=== PATIENT | male | born 1965 | race Caucasian/White ===

== ENCOUNTER 2016-10-22 15:25 | Inpatient (IN) | payer OTHER ==
[2016-10-22 19:59] LABS: BASOPHIL 2.2 % (0-2.0); EOSINOPHIL 2.4 % (0-4.5); MEAN PLT VOLUME 6.4 fl (7.5-11.1); NEUTROPHILS 74.1 % (42.8-82.8); PLATELET COUNT 770 K/MM3 (134-434); RDW 15.3 % (11.9-15.9); WHITE BLOOD COUNT 13.5 K/mm3 (4.0-10.0)
[2016-10-22 20:07] LABS: MCH 18.9 pg (25.7-33.7)
[2016-10-22 20:34] LABS: INR 1.16 (0.82-1.09); PROTHROMBIN TIME (PATIENT) 12.8 SEC (9.98-11.88)
[2016-10-22] MEDS ORDERED: SODIUM CHLORIDE 1,000 ML IV STA (20:39)
--- NOTE | 2016-10-22 20:39 | PDOC ---
History of Present Illness - General History Source: Patient Exam Limitations: No Limitations - History of Present Illness Initial Comments: 10/22/16 21:06 The patient is a 50 year old male with significant past medical history of newly diagnosed mediastinum chest mass who presents to the ED with 3 days of generalized malaise and fatigue. Patient also has complaints of headache and occasional productive cough. He denies chest pain and SOB. He also denies lightheadedness and dizziness. Patient states he is starting chemotherapy on October 28, but decided to come into the ER since he is feeling ill with generalized malaise. Patient denies history of hypertension and diabetes. The patient denies fever, chills, and palpitations. The patient denies abdominal pain, nausea, vomiting, and diarrhea. Allergies: NKDA Social History: Current smoker Past Surgical History: None reported PCP: Dr. Jp Rolon Oncologist: Dr. Estrada Lord <Bailey De La Cruz - Last Filed: 10/23/16 01:58> - General History Source: Patient <Kyle Bowser - Last Filed: 10/23/16 04:20> - General Chief Complaint: Chest Pain Stated Complaint: CHEST PAIN, THROAT PAIN, DIZZINESS Time Seen by Provider: 10/22/16 20:36 Past History <Bailey De La Cruz - Last Filed: 10/23/16 01:58> - Past Medical History Cancer: Yes (Starts Chemo ) Thyroid Disease: Yes - Psycho/Social/Smoking Cessation Hx Suicidal Ideation: No Smoking Status: Yes Smoking History: Current every day smoker Number of Cigarettes Smoked Daily: 12 Information on smoking cessation initiated: Yes 'Breaking Loose' booklet given: 10/22/16 Hx Alcohol Use: Yes (daily) Drug/Substance Use Hx: No Substance Use Type: None <Kyle Bowser - Last Filed: 10/23/16 04:20> - Past Medical History Allergies/Adverse Reactions: Allergies Allergy/AdvReac Type Severity Reaction Status Date / Time No Known Allergies Allergy Verified 10/22/16 15:32 Home Medications: Ambulatory Orders Levothyroxine [Synthroid] 25 mcg PO DAILY 11/29/12 Acetaminophen [Tylenol] 325 mg PO QID PRN 10/22/16 Guaifenesin [Mucinex -] 600 mg PO BID 10/22/16 Review of Systems - Review of Systems Able to Perform ROS?: Yes Comments:: 10/22/16 21:06 CONSTITUTIONAL: +generalized malaise, fatigue Absent: fever, chills, diaphoresis, loss of appetite HEENT: Absent: rhinorrhea, nasal congestion, throat pain, throat swelling, difficulty swallowing, mouth swelling, ear pain, eye pain, visual Changes CARDIOVASCULAR: Absent: chest pain, syncope, palpitations, irregular heart rate, lightheadedness , peripheral edema RESPIRATORY: +occasional productive cough Absent: shortness of breath, dyspnea with exertion , orthopnea, wheezing, stridor, hemoptysis GASTROINTESTINAL: Absent: abdominal pain, abdominal distension, nausea, vomiting, diarrhea, constipation, melena, hematochezia GENITOURINARY: Absent: dysuria, frequency, urgency, hesitancy, hematuria, flank pain, genital pain MUSCULOSKELETAL: Absent: myalgia, arthralgia, joint swelling SKIN: Absent: rash, itching, pallor NEUROLOGIC: +headache Absent: focal weakness or paresthesias, dizziness, unsteady gait, seizure, mental status changes, bladder or bowel incontinence PSYCHIATRIC: Absent: anxiety, depression, suicidal or homicidal ideation, hallucinations. <Bailey De La Cruz - Last Filed: 10/23/16 01:58> *Physical Exam - Vital Signs Last Vital Signs Temp Pulse Resp BP Pulse Ox 97.8 F 89 18 111/75 93 L 10/22/16 15:29 10/22/16 15:29 10/22/16 15:29 10/22/16 15:29 10/22/16 15:29 - Physical Exam Comments: 10/22/16 21:06 GENERAL: Well developed, well nourished. Awake and alert. No acute distress. HEENT: Normocephalic, atraumatic. PERRLA, EOMI. No conjunctival pallor. Sclera are non- icteric. Moist mucous membranes. Oropharynx is clear. NECK: Supple. Full ROM. No JVD. Carotid pulses 2+ and symmetric, without bruits. No thyromegaly. No lymphadenopathy. CARDIOVASCULAR: Regular rate and rhythm. No murmurs, rubs, or gallops. Distal pulses are 2+ and symmetric. PULMONARY: No evidence of respiratory distress. Scattered wheezing. ABDOMINAL: Soft. Non-tender. Non-distended. No rebound or guarding. No organomegaly. Normoactive bowel sounds. MUSCULOSKELETAL Normal range of motion at all joints. No bony deformities or tenderness. No CVA tenderness. EXTREMITIES: No cyanosis. No clubbing. No edema. No calf tenderness. SKIN: Warm and dry. Normal capillary refill. No rashes. No jaundice. NEUROLOGICAL: Alert, awake, appropriate. Cranial nerves 2-12 intact. No deficits to light touch and temperature in face, upper extremities and lower extremities. No motor deficits in the in face, upper extremities and lower extremities. Normoreflexic in the upper and lower extremities. Normal speech. PSYCHIATRIC: Cooperative. Good eye contact. Appropriate mood and affect. <Bailey De La Cruz - Last Filed: 10/23/16 01:58> - Vital Signs Last Vital Signs Temp Pulse Resp BP Pulse Ox 97.8 F 89 18 111/75 93 L 10/22/16 15:29 10/22/16 15:29 10/22/16 15:29 10/22/16 15:29 10/22/16 15:29 <Kyle Bowser - Last Filed: 10/23/16 04:20> Heart Score/ECG Review - ECG Impressions Comment:: 10/23/16 01:58 NSR @77bpm Possible left atrial enlargement Borderline ECG <Bailey De La Cruz - Last Filed: 10/23/16 01:58> ED Treatment Course - LABORATORY CBC & Chemistry Diagram: 10/22/16 19:44 10/22/16 19:44 - ADDITIONAL ORDERS Additional order review: Laboratory Results 10/22/16 19:44 Sodium 131 L Potassium 4.3 Chloride 94 L Carbon Dioxide 31 Anion Gap 6 L BUN 9 D Creatinine 0.9 Creat Clearance w eGFR > 60 Random Glucose 111 H D Calcium 8.8 Total Bilirubin 0.5 AST 21 ALT 11 L Alkaline Phosphatase 116 Total Protein 6.9 Albumin 2.8 L 10/22/16 19:44 RBC 6.29 H MCV 61.0 L MCHC 31.0 L RDW 15.3 MPV 6.4 L Neutrophils % 74.1 Lymphocytes % 13.1 Monocytes % 8.2 Eosinophils % 2.4 Basophils % 2.2 H <Bailey De La Cruz - Last Filed: 10/23/16 01:58> - LABORATORY CBC & Chemistry Diagram: 10/22/16 19:44 10/22/16 19:44 - ADDITIONAL ORDERS Additional order review: 10/22/16 19:44 RBC 6.29 H MCV 61.0 L MCHC 31.0 L RDW 15.3 MPV 6.4 L Neutrophils % 74.1 Lymphocytes % 13.1 Monocytes % 8.2 Eosinophils % 2.4 Basophils % 2.2 H <Kyle Bowser - Last Filed: 10/23/16 04:20> Medical Decision Making - Medical Decision Making 10/23/16 04:19 Dr. Bowser: The scribe's documentation has been prepared under my direction and personally reviewed by me in its entirery. I confirm that the note above accurately reflects all work, treatment, procedures, and medical decision making performed by me. Patient found right upper lobe infiltrate, around the same vicinity as his known lung mass. Patient's white count is approximately 13. Patient will be admitted for IV antibiotics <Kyle Bowser - Last Filed: 10/23/16 04:20> *DC/Admit/Observation/Transfer - Attestations Scribe Attestion: 10/22/16 21:06 Documentation prepared by Bailey De La Cruz, acting as medical radiation dosimetrist for Kyle Bowser MD <Bailey De La Cruz - Last Filed: 10/23/16 01:58> - Discharge Dispostion Admit: Yes <Kyle Bowser - Last Filed: 10/23/16 04:20> Diagnosis at time of Disposition: Lung mass Pneumonia Qualifiers: Pneumonia type: due to unspecified organism Laterality: right Lung location: upper lobe of lung Qualified Code(s): J18.9 - Pneumonia, unspecified organism - Referrals
[2016-10-22 20:42] LABS: ALBUMIN 2.8 g/dl (3.4-5.0); ALK PHOS 116 U/L (45-117); ANION GAP 6 (8-16); BILIRUBIN,TOTAL 0.5 mg/dL (0.2-1.0); CALCIUM 8.8 mg/dL (8.5-10.1); CO2 31 mmol/L (21-32); CREATININE 0.9 mg/dL (0.7-1.3); GLUCOSE,RANDOM 111 mg/dL (74-106); SGOT/AST 21 U/L (15-37); SGPT/ALT 11 U/L (12-78); TOT PROT 6.9 g/dl (6.4-8.2)
[2016-10-22 21:42] LABS: HYPOCHROMIA 3+; MICROCYTOSIS 2+; TARGET CELLS 2+
[2016-10-22] MEDS ORDERED: AZITHROMYCIN IVPB 500 MG in DEXTROSE 5%-WATER - 250 ML IVPB ONE (22:51)
[2016-10-23] MEDS ORDERED: CEFTRIAXONE 100 ML IVPB ONE (01:21)
[2016-10-23] MEDS ORDERED: AZITHROMYCIN IVPB 250 ML IVPB ONE (01:21)
[2016-10-23 03:10] VITALS: BMI 19.9
--- NOTE | 2016-10-23 10:02 | EKG ---
Test Reason : Blood Pressure : / mmHG Vent. Rate : 077 BPM Atrial Rate : 077 BPM P-R Int : 142 ms QRS Dur : 088 ms QT Int : 384 ms P-R-T Axes : 065 061 049 degrees QTc Int : 434 ms NORMAL SINUS RHYTHM POSSIBLE LEFT ATRIAL ENLARGEMENT BORDERLINE ECG NO PREVIOUS ECGS AVAILABLE Confirmed by MD BRENDAN, CALLIE ([id number]) on 10/23/2016 10:02:23 AM Referred By: Overread By: CALLIE CARDONA MD
[2016-10-23] MEDS ORDERED: ACETAMINOPHEN 325 MG TABLET (FP) PO ONE (11:00)
[2016-10-23] MEDS: LEVOTHYROXINE NA 25 MCG TABLET (FP) PO SCH (14:10)
[2016-10-23] MEDS: ENOXAPARIN NA (PORCINE) 40 MG/0.4 ML DISP.SYRIN SQ SCH (14:11)
--- NOTE | 2016-10-23 15:16 | CONSULT ---
Consult Consult Specialty:: PULMONARY Referred by:: VANESSA Reason for Consultation:: LUNG CANCER - History of Present Illness Chief Complaint: COUGH/CHEST PRESSURE/WEAKNESS History of Present Illness: COMPLETE WORKUP FOR RIGHT UPPER LOBE LARGE MASS ALREADY COMPLETED INCLUDING BX. PATIENT HAS LUNG CANCER (HE COULDN'T TELL ME THE TYPE) AND A PORT PLACED IN ANTICIPATION OF CHEMOTX. ONCOLOGY HAS ALL INFO, CONSULT IS PENDING. ADMITTED NOW WITH PRESUMED PNEUMONIA RUL IN AREA OF MASS. STILL ACTIVELY SMOKING. 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 No: O2 Dependent Gastrointestinal: No: Ascites Hepatobiliary: No: Cirrhosis Renal/: No: Hemodialysis Heme/Onc: Yes: Anemia Infectious Disease: No: AIDS Musculoskeletal: No: Bursitis Rheumatology: No: Fibromyalgia Endocrine: Yes: Hypothyroidism. No: Diabetes Mellitus - Alcohol/Substance Use Hx Alcohol Use: Yes (daily) - Smoking History Smoking history: Current every day smoker Have you smoked in the past 12 months: Yes Aproximately how many cigarettes per day: 12 - Social History Place of : [facility] History of Recent Travel: No Home Medications - Allergies Allergies/Adverse Reactions: Allergies Allergy/AdvReac Type Severity Reaction Status Date / Time No Known Allergies Allergy Verified 10/22/16 15:32 - Home Medications Home Medications: Ambulatory Orders Levothyroxine [Synthroid] 25 mcg PO DAILY 11/29/12 Acetaminophen [Tylenol] 325 mg PO QID PRN 10/22/16 Guaifenesin [Mucinex -] 600 mg PO BID 10/22/16 Family Disease History - Family Disease History Family History: Unremarkable Review of Systems - Review of Systems Constitutional: reports: Fever, Lethargy, Unintentional Wgt. Loss Eyes: denies: Blind Spots HENT: denies: Difficult Swallowing Neck: denies: Decreased ROM Cardiovascular: reports: Chest Pain Respiratory: reports: Cough, SOB on Exertion. denies: Hemoptysis, Wheezing Gastrointestinal: denies: Abdominal Pain Genitourinary: reports: No Symptoms Physical Exam Vital Sings: Vital Signs Temperature 98.4 F 10/23/16 13:39 Pulse Rate 100 H 10/23/16 13:39 Respiratory Rate 18 10/23/16 13:39 Blood Pressure 136/79 10/23/16 13:39 O2 Sat by Pulse Oximetry (%) 90 L 10/23/16 09:00 Constitutional: Yes: Calm Eyes: Yes: EOM Intact HENT: Yes: Normocephalic Neck: Yes: Trachea Midline Cardiovascular: Yes: Regular Rate and Rhythm Respiratory: Yes: Diminished Gastrointestinal: Yes: Normal Bowel Sounds Edema: No Neurological: Yes: Alert Labs: ALL LABS REVIEWED Imaging - Results Chest X-ray: Image Reviewed EKG: Report Reviewed Problem List - Problems (1) Lung mass Code(s): R91.8 - OTHER NONSPECIFIC ABNORMAL FINDING OF LUNG FIELD (2) Pneumonia Code(s): J18.9 - PNEUMONIA, UNSPECIFIED ORGANISM Qualifiers: Pneumonia type: due to unspecified organism Laterality: right Lung location: upper lobe of lung Qualified Code(s): J18.9 - Pneumonia, unspecified organism (3) Epistaxis, recurrent Code(s): R04.0 - EPISTAXIS (4) Lung cancer Code(s): C34.90 - MALIGNANT NEOPLASM OF UNSP PART OF UNSP BRONCHUS OR LUNG Assessment/Plan NO NEED TO REPEAT EXTENSIVE PREVIOUS WORKUP WOULD TREAT FOR COMMUNITY ACQUIRED PNEUMONIA O2 SUPPLEMENTATION/BRONCHODILATORS/NICOTINE PATCH AWAIT ALL INFO FROM ONCOLOGY(DR. TAVARES) WILL FOLLOW Shawn CORTÉS MD
[2016-10-23] MEDS: DEXTROSE 5%-0.45% SALINE 1,000 ML IV SCH (17:25)
[2016-10-23] MEDS: NICOTINE 14 MG/24 HOURS TOPICAL PATCH TD SCH (17:25)
--- NOTE | 2016-10-23 18:37 | HP ---
Admitting History and Physical - Admission History of Present Illness: Pt is a 50 y/o smoker who has been recently dx'ed w/ lung cancer and is supposed to begin chemotx w/ Dr. Lord next week. However he now presented to the er bc he has been feeling fatigued w/ increased SOB. He also states that his cough has become more productive and the sputum seems darker. In the er pt had cxr wc showed RUL opacification and he was found to have a WBC of 13,000. Pt deneis any fever/chills. 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 No: O2 Dependent Gastrointestinal: No: Ascites Hepatobiliary: No: Cirrhosis Renal/: No: Hemodialysis Heme/Onc: Yes: Anemia, Other (Lung cancer) Infectious Disease: No: AIDS Musculoskeletal: No: Bursitis Rheumatology: No: Fibromyalgia Endocrine: Yes: Hypothyroidism. No: Diabetes Mellitus - Past Surgical History Additional Past Surgical History: Jackie cath placement - Smoking History Smoking history: Current every day smoker Have you smoked in the past 12 months: Yes Aproximately how many cigarettes per day: 12 - Alcohol/Substance Use Hx Alcohol Use: Yes (daily) - Social History History of Recent Travel: No Home Medications - Allergies Allergies/Adverse Reactions: Allergies Allergy/AdvReac Type Severity Reaction Status Date / Time No Known Allergies Allergy Verified 10/22/16 15:32 - Home Medications Home Medications: Ambulatory Orders Levothyroxine [Synthroid] 25 mcg PO DAILY 11/29/12 Acetaminophen [Tylenol] 325 mg PO QID PRN 10/22/16 Guaifenesin [Mucinex -] 600 mg PO BID 10/22/16 Family Disease History - Family Disease History Family History: Unremarkable Review of Systems - Review of Systems Constitutional: reports: Loss of Appetite, Malaise, Unintentional Wgt. Loss, Weakness HENT: reports: No Symptoms Neck: reports: No Symptoms Cardiovascular: reports: Shortness of Breath Respiratory: reports: Cough, Exercise Intolerance, SOB, SOB on Exertion Gastrointestinal: reports: No Symptoms Physical Examination Vital Signs: Vital Signs Temperature 97.7 F 10/23/16 16:20 Pulse Rate 60 10/23/16 16:20 Respiratory Rate 20 10/23/16 16:20 Blood Pressure 110/66 12/30/16 16:20 O2 Sat by Pulse Oximetry (%) 90 L 10/23/16 09:00 HENT: Yes: WNL Neck: Yes: Supple Cardiovascular: Yes: WNL, Regular Rate and Rhythm Respiratory: Yes: Rhonchi Gastrointestinal: Yes: WNL, Normal Bowel Sounds, Soft Musculoskeletal: Yes: WNL Extremities: Yes: WNL Edema: No Neurological: Yes: WNL, Alert, Oriented Problem List - Problems (1) Pneumonia Assessment/Plan: Cont IV ceftriaxone/zithro for CAP Cont nebulizer Code(s): J18.9 - PNEUMONIA, UNSPECIFIED ORGANISM Qualifiers: Pneumonia type: due to unspecified organism Laterality: right Lung location: upper lobe of lung Qualified Code(s): J18.9 - Pneumonia, unspecified organism (2) Lung cancer Assessment/Plan: Onco consult requested No further imaging until onco consult to determine if there is a need Code(s): C34.90 - MALIGNANT NEOPLASM OF UNSP PART OF UNSP BRONCHUS OR LUNG (3) COPD (chronic obstructive pulmonary disease) Assessment/Plan: Cont duoneb Long d/w pt about need for smoking cessation Nicotine patch Code(s): J44.9 - CHRONIC OBSTRUCTIVE PULMONARY DISEASE, UNSPECIFIED (4) Anemia Assessment/Plan: Due to malignancy Monitor H/H Code(s): D64.9 - ANEMIA, UNSPECIFIED (5) Hypothyroidism Assessment/Plan: Cont synthroid Code(s): E03.9 - HYPOTHYROIDISM, UNSPECIFIED
[2016-10-23] MEDS: CEFTRIAXONE 50 ML IVPB SCH (21:37)
--- NOTE | 2016-10-23 22:50 | CONSULT ---
Consult - text type - Consultation Consultation Note: Pt is a 50 y/o smoker who has been recently dx'ed w/ lung cancer and is supposed to begin chemotx w/ Dr. Lord next week. However he now presented to the er as he has been feeling fatigued w/ increased cough, chest heaviness. He also reports blood tinged sputum. No reji hemoptyisis. Blood tinged sputum has not changed in amount over last 2 months. In the er pt had cxr wc showed RUL opacification and he was found to have a WBC of 13,000. Pt deneis any fever/ chills. 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 No: O2 Dependent Heme/Onc: Yes: Anemia, Other (Lung cancer) Endocrine: Yes: Hypothyroidism. No: Diabetes Mellitus - Past Surgical History Additional Past Surgical History: Jackie cath placement - Smoking History Smoking history: Current every day smoker - Alcohol/Substance Use Hx Alcohol Use: Yes (daily) Home Medications - Allergies Allergies/Adverse Reactions: Allergies Allergy/AdvReac Type Severity Reaction Status Date / Time No Known Allergies Allergy Verified 10/22/16 15:32 - Home Medications Home Medications: Ambulatory Orders Levothyroxine [Synthroid] 25 mcg PO DAILY 11/29/12 Acetaminophen [Tylenol] 325 mg PO QID PRN 10/22/16 Guaifenesin [Mucinex -] 600 mg PO BID 10/22/16 Current Medications Acetaminophen (Tylenol -) 1,000 mg PO Q6H PRN PRN Reason: FEVER OR PAIN Albuterol/Ipratropium (Duoneb -) 1 amp NEB Q6H PRN PRN Reason: SHORTNESS OF BREATH Enoxaparin Sodium (Lovenox -) 40 mg SQ DAILY [facility] Last Admin: 10/23/16 14:11 Dose: 40 mg Azithromycin 250 mg/ Dextrose 250 mls @ 250 mls/hr IVPB DAILY [facility] Ceftriaxone Sodium (Rocephin 1gm Ivpb (Pre-Docked)) 50 mls @ 100 mls/hr IVPB HS [facility] Last Admin: 10/23/16 21:37 Dose: 100 mls/hr Dextrose/Sodium Chloride (D5-1/2ns -) 1,000 mls @ 75 mls/hr IV ASDIR [facility] Last Admin: 12/30/16 17:25 Dose: 75 mls/hr Levothyroxine Sodium (Synthroid -) 25 mcg PO DAILY [facility] Last Admin: 10/23/16 14:10 Dose: 25 mcg Nicotine (Nicoderm Patch -) 14 mg TD DAILY [facility] Last Admin: 10/23/16 17:25 Dose: Not Given Family Disease History - Family Disease History Family History: Unremarkable Physical Examination Vital Signs: Vital Signs Temperature 97.7 F 10/23/16 16:20 Pulse Rate 60 10/23/16 16:20 Respiratory Rate 20 10/23/16 16:20 Blood Pressure 110/66 10/23/16 16:20 O2 Sat by Pulse Oximetry (%) 90 L 10/23/16 09:00 HENT: Yes: WNL Neck: Yes: Supple Cardiovascular: Yes: WNL, Regular Rate and Rhythm Respiratory: markedly diminished breath sounds rt. lung. Lt. lung --good breath sounds Gastrointestinal: Yes: WNL, Normal Bowel Sounds, Soft Musculoskeletal: Yes: WNL Extremities: Yes: WNL Neurological: Yes: WNL, Alert, Oriented Problem List 50 y/o patient with recently diagnosed lung cancer, completed staging w/u as outpatient anticipated to start chemo 10/28 comes in with chest pressure, orthopnea. Has baseline cough and mild hemopthysis feels better since he started antibiotics Will start folic acid and B12 in anticipation of chemotherapy with carbo/alimta ? will review office records will check echo to r/o pericardial effusion given orthopnea
[2016-10-24] MEDS: FOLIC ACID 1 MG TABLET (FP) PO SCH ×2 (00:02→10:08)
[2016-10-24 08:37] LABS: ALBUMIN 2.5 g/dl (3.4-5.0); ANION GAP 11 (8-16); CALCIUM 8.8 mg/dL (8.5-10.1); CO2 30 mmol/L (21-32); GLUCOSE,RANDOM 77 mg/dL (74-106)
[2016-10-24 08:42] LABS: ALK PHOS 105 U/L (45-117); BILIRUBIN,TOTAL 0.3 mg/dL (0.2-1.0); CREATININE 0.8 mg/dL (0.7-1.3); SGOT/AST 19 U/L (15-37); SGPT/ALT 11 U/L (12-78); TOT PROT 6.6 g/dl (6.4-8.2)
[2016-10-24 09:09] LABS: BASOPHIL 1.9 % (0-2.0); EOSINOPHIL 3.6 % (0-4.5); MCHC 31.5 g/dl (32.0-35.9); MEAN CELL VOLUME 61.7 fl (80-96); MEAN PLT VOLUME 6.7 fl (7.5-11.1); NEUTROPHILS 71.7 % (42.8-82.8); PLATELET COUNT 741 K/MM3 (134-434); RDW 15.7 % (11.9-15.9); WHITE BLOOD COUNT 13.5 K/mm3 (4.0-10.0)
[2016-10-24 09:11] LABS: MCH 19.4 pg (25.7-33.7)
--- NOTE | 2016-10-24 10:03 | PN ---
Progress Note (short form) - Note Progress Note: PULMONARY AWAKE/ALERT YELLOW SPUTA MIXED WITH BLOOD ANICTERIC DIMINISHED BREATH SOUNDS RIGHT POSTERIOR UPPER LUNG ZONE S1S2 BS+ NO EDEMA LABS/MEDS/NOTES/IMAGING REVIEWED STILL AWAITING DETAILS SURROUNDING PREVIOUS RECENT LUNG CA WORK UP CONTINUE TO TREAT FOR LIKELY POST-OBSTRUCTIVE PROCESS WITH IV ANTIBIOTICS BRONCHODILATORS/O2 SUPPLEMENTATION PATIENT STATES MRI BRAIN WAS NEGATIVE(COMPLAINING OF HEADACHES) WILL FOLLOW Shawn CORTÉS MD Problem List - Problems (1) Lung mass Code(s): R91.8 - OTHER NONSPECIFIC ABNORMAL FINDING OF LUNG FIELD (2) Pneumonia Code(s): J18.9 - PNEUMONIA, UNSPECIFIED ORGANISM Qualifiers: Pneumonia type: due to unspecified organism Laterality: right Lung location: upper lobe of lung Qualified Code(s): J18.9 - Pneumonia, unspecified organism (3) Epistaxis, recurrent Code(s): R04.0 - EPISTAXIS (4) Lung cancer Code(s): C34.90 - MALIGNANT NEOPLASM OF UNSP PART OF UNSP BRONCHUS OR LUNG
[2016-10-24] MEDS ORDERED: PT OWN MED DRAWER 7, Y5N ONE (10:04)
[2016-10-24] MEDS: ENOXAPARIN NA (PORCINE) 40 MG/0.4 ML DISP.SYRIN SQ SCH (10:09)
[2016-10-24] MEDS: NICOTINE 14 MG/24 HOURS TOPICAL PATCH TD SCH (10:09)
[2016-10-24] MEDS: ACETAMINOPHEN 500 MG TABLET (FP) PO PRN ×2 (10:10→22:28)
[2016-10-24] MEDS: LEVOTHYROXINE NA 25 MCG TABLET (FP) PO SCH (10:13)
[2016-10-24] MEDS: ALBUTEROL SO4 2.5/IPRATROPIUM 0.5 INH SOL 3 ML VIAL.NEB. NEB PRN ×2 (10:30→21:55)
[2016-10-24] MEDS: AZITHROMYCIN IVPB 250 MG in DEXTROSE 5%-WATER - 250 ML IVPB SCH (12:19)
[2016-10-24] MEDS: DEXTROSE 5%-0.45% SALINE 1,000 ML IV SCH (15:29)
[2016-10-24] MEDS ORDERED: CYANOCOBALAMIN (VITAMIN B-12) 1000 MCG/1 ML VIAL IM ONE (15:50)
--- NOTE | 2016-10-24 17:38 | PN ---
Progress Note (short form) - Note Progress Note: Patient seen and examined Fels much better Last Vital Signs Temp Pulse Resp BP Pulse Ox 97.4 F L 83 18 136/64 96 10/24/16 14:24 10/24/16 14:24 10/24/16 14:24 10/24/16 14:24 10/24/16 09:00 Cor: RSR, No murmurs, No gallops Lungs: decreased rt. lung sounds Abd: Soft, Normal bowel sounds, No organomegaly Ext:No significant edema Skin: No rashes, Integument intact Abnormal Lab Results 10/24/16 10/24/16 06:30 06:30 WBC 13.5 H RBC 6.07 H MCV 61.7 L MCHC 31.5 L Plt Count 741 H MPV 6.7 L Chloride 96 L ALT 11 L Albumin 2.5 L Current Medications Acetaminophen (Tylenol -) 1,000 mg PO Q6H PRN PRN Reason: FEVER OR PAIN Last Admin: 10/24/16 10:10 Dose: 1,000 mg Albuterol/Ipratropium (Duoneb -) 1 amp NEB Q6H PRN PRN Reason: SHORTNESS OF BREATH Last Admin: 10/24/16 10:30 Dose: 1 amp Enoxaparin Sodium (Lovenox -) 40 mg SQ DAILY [facility] Last Admin: 10/24/16 10:09 Dose: 40 mg Folic Acid (Folic Acid -) 1 mg PO DAILY [facility] Last Admin: 10/24/16 10:08 Dose: 1 mg Azithromycin 250 mg/ Dextrose 250 mls @ 250 mls/hr IVPB DAILY [facility] Last Admin: 10/24/16 12:19 Dose: 250 mls/hr Ceftriaxone Sodium (Rocephin 1gm Ivpb (Pre-Docked)) 50 mls @ 100 mls/hr IVPB HS [facility] Last Admin: 10/23/16 21:37 Dose: 100 mls/hr Dextrose/Sodium Chloride (D5-1/2ns -) 1,000 mls @ 75 mls/hr IV ASDIR [facility] Last Admin: 10/24/16 15:29 Dose: Not Given Levothyroxine Sodium (Synthroid -) 25 mcg PO DAILY [facility] Last Admin: 10/24/16 10:13 Dose: 25 mcg Nicotine (Nicoderm Patch -) 14 mg TD DAILY [facility] Last Admin: 10/24/16 10:09 Dose: 14 mg A/P 50 y/o patient with stage IIIB nonsmall cell, poorly diff. adeno ca with 9cm RUL mass, N3 nodes on PET-scan MRI brain neg. Patient coming in with chest pressure/headaches/orthopnea/mild hemoptysis Symptoms much impreoved on antibiotics If symptoms recur or persist will repeat imagin CT chest with contrast --? SVC syndrome On B12/folate Will transfer to for chemotherapy---carboplatin/alimta. Hold avastin given hemoptysis
--- NOTE | 2016-10-24 19:35 | PN ---
Progress Note, Physician History of Present Illness: No new complaints - Current Medication List Current Medications: Active Medications Acetaminophen (Tylenol -) 1,000 mg PO Q6H PRN PRN Reason: FEVER OR PAIN Last Admin: 10/24/16 10:10 Dose: 1,000 mg Albuterol/Ipratropium (Duoneb -) 1 amp NEB Q6H PRN PRN Reason: SHORTNESS OF BREATH Last Admin: 10/24/16 10:30 Dose: 1 amp Enoxaparin Sodium (Lovenox -) 40 mg SQ DAILY [facility] Last Admin: 10/24/16 10:09 Dose: 40 mg Folic Acid (Folic Acid -) 1 mg PO DAILY [facility] Last Admin: 10/24/16 10:08 Dose: 1 mg Azithromycin 250 mg/ Dextrose 250 mls @ 250 mls/hr IVPB DAILY [facility] Last Admin: 10/24/16 12:19 Dose: 250 mls/hr Ceftriaxone Sodium (Rocephin 1gm Ivpb (Pre-Docked)) 50 mls @ 100 mls/hr IVPB HS [facility] Last Admin: 10/23/16 21:37 Dose: 100 mls/hr Levothyroxine Sodium (Synthroid -) 25 mcg PO DAILY [facility] Last Admin: 10/24/16 10:13 Dose: 25 mcg Nicotine (Nicoderm Patch -) 14 mg TD DAILY [facility] Last Admin: 10/24/16 10:09 Dose: 14 mg - Objective Vital Signs: Vital Signs Temperature 97.7 F 10/24/16 18:05 Pulse Rate 64 10/24/16 18:05 Respiratory Rate 18 10/24/16 18:05 Blood Pressure 128/89 10/24/16 18:05 O2 Sat by Pulse Oximetry (%) 96 10/24/16 09:00 Constitutional: Yes: No Distress Neck: Yes: Supple Cardiovascular: Yes: WNL, Regular Rate and Rhythm Respiratory: Yes: Other (Coarse bs b/l) Gastrointestinal: Yes: WNL, Normal Bowel Sounds, Soft, Abdomen, Obese Labs: CBC, BMP 10/24/16 06:30 10/24/16 06:30 INR, PTT INR 1.16 (0.82-1.09) H 10/22/16 19:44 Problem List - Problems (1) Pneumonia Assessment/Plan: Pt is now off antibxs Cont nebulizer CT scan chest showed RUL mass increased and ?adrenal mumtaz/pericardial effusion Code(s): J18.9 - PNEUMONIA, UNSPECIFIED ORGANISM Qualifiers: Pneumonia type: due to unspecified organism Laterality: right Lung location: lower lobe of lung Qualified Code(s): J18.9 - Pneumonia, unspecified organism (2) Lung cancer Assessment/Plan: Stage 3b nonsmall cell ca of lung(RUL mass) Pt to have chemotx(has port) and RT as outpt Further management as per onco Code(s): C34.90 - MALIGNANT NEOPLASM OF UNSP PART OF UNSP BRONCHUS OR LUNG Qualifiers: Laterality: right Lung location: upper lobe of lung Qualified Code(s): C34.11 - Malignant neoplasm of upper lobe, right bronchus or lung (3) COPD (chronic obstructive pulmonary disease) Assessment/Plan: Cont duoneb Nicotine patch Code(s): J44.9 - CHRONIC OBSTRUCTIVE PULMONARY DISEASE, UNSPECIFIED Qualifiers : COPD type: unspecified COPD Qualified Code(s): J44.9 - Chronic obstructive pulmonary disease, unspecified (4) Anemia Code(s): D64.9 - ANEMIA, UNSPECIFIED (5) Hypothyroidism Code(s): E03.9 - HYPOTHYROIDISM, UNSPECIFIED Qualifiers: Hypothyroidism type: unspecified Qualified Code(s): E03.9 - Hypothyroidism, unspecified
[2016-10-24] MEDS: CEFTRIAXONE 50 ML IVPB SCH (22:14)
[2016-10-25] MEDS: LEVOTHYROXINE NA 25 MCG TABLET (FP) PO SCH (06:34)
[2016-10-25] MEDS: ACETAMINOPHEN 500 MG TABLET (FP) PO PRN ×3 (06:37→21:51)
[2016-10-25] MEDS ORDERED: PT OWN MED DRAWER 7, Y5N ONE (10:15)
[2016-10-25] MEDS: ENOXAPARIN NA (PORCINE) 40 MG/0.4 ML DISP.SYRIN SQ SCH (10:17)
[2016-10-25] MEDS: NICOTINE 14 MG/24 HOURS TOPICAL PATCH TD SCH (10:17)
[2016-10-25] MEDS: FOLIC ACID 1 MG TABLET (FP) PO SCH (10:18)
--- NOTE | 2016-10-25 10:20 | PN ---
Progress Note (short form) - Note Progress Note: PULMONARY AWAKE/ALERT HAS LEFT SHOULDER PAIN WITH ANICTERIC DIMINISHED BREATH SOUNDS RIGHT POSTERIOR UPPER LUNG ZONE S1S2 BS+ NO EDEMA LABS/MEDS/NOTES/IMAGING REVIEWED POORLY DIFFERENTIATED ADENO STAGE 3B POST OBSTRUCTIVE PNEUMONITIS CONTINUE ANTIBIOTICS/O2/BRONCHODILATORS SCHEDULED FOR CHEMOTX WILL FOLLOW Shawn CORTÉS MD Problem List - Problems (1) Lung mass Code(s): R91.8 - OTHER NONSPECIFIC ABNORMAL FINDING OF LUNG FIELD (2) Pneumonia Code(s): J18.9 - PNEUMONIA, UNSPECIFIED ORGANISM Qualifiers: Pneumonia type: due to unspecified organism Laterality: right Lung location: upper lobe of lung Qualified Code(s): J18.9 - Pneumonia, unspecified organism (3) Epistaxis, recurrent Code(s): R04.0 - EPISTAXIS (4) Lung cancer Code(s): C34.90 - MALIGNANT NEOPLASM OF UNSP PART OF UNSP BRONCHUS OR LUNG
--- NOTE | 2016-10-25 11:26 | CONSULT ---
Consult - text type - Consultation Consultation Note: Patient seen and examined. Chart reviewed. Full Consult dictated # [id number]. 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 He is stable on antibiotics and bronchodilators. The plans for chemotherapy are noted. I would recommend concurrent radiation therapy. The patient would like to confirm this plan with Dr. Lord, and I would like to obtain the pathology and staging records as well before beginning. Will follow and discuss Wednesday. Thank you.
[2016-10-25] MEDS: AZITHROMYCIN IVPB 250 MG in DEXTROSE 5%-WATER - 250 ML IVPB SCH (12:04)
--- NOTE | 2016-10-25 12:46 | CONS ---
DATE OF CONSULTATION: 10/25/2016 CHIEF COMPLAINT: Lung cancer. HISTORY OF PRESENT ILLNESS: The patient is a 50-year-old gentleman who presented in December with idiopathic epistaxis that ultimately resolved by intervention at the [facility]. He reports a chest x-ray done in May after he had some increasing cough showed a right upper lobe mass. He had CT scan and evaluation at [facility]. There is where he had bronchoscopy and it sounds like mediastinoscopy though there is no mediastinoscopy scar. The biopsy showed adenocarcinoma of the lung. The patient saw Dr. Lord as an outpatient and was planned to begin carboplatin, Alimta and Avastin next week. He was admitted to [facility] 2 days ago with increasing cough, shortness of breath, and fever. He was diagnosed with a postobstructive pneumonia. He has seen Dr. Chantel You, who plans on beginning chemotherapy. We were asked to consider the possibility of concurrent radiation therapy. The patient does have hemoptysis, mainly blood-tinged, nothing excessive, according to him, there is no particular dyspnea or orthopnea. He does have some right upper chest discomfort. A MediPort was placed by Dr. Pete and a right supraclavicular lymph node was identified. Medications are azithromycin 250 mg IV daily, Rocephin 1 g IV daily, Lovenox 40 mg subcutaneous daily, NicoDerm patch 14 mg daily, albuterol ipratropium 1 nebulizer q.6 hours as needed, Synthroid 25 mcg daily, folic acid 1 mg daily, Tylenol 1000 mg every 6 hours daily. ALLERGIES: None. Past medical history is significant for hypothyroidism since she was a child, lung cancer. No other surgeries, medical illnesses, or hospitalizations. Family history is negative for cancer. Mother at the age of 83. Father is alive at age 81. He has a brother, 54, who is healthy. He has no children. SOCIAL HISTORY: He was born and raised in [place]. 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 He did smoke excessively for many years, currently smoking 12 cigarettes a day. No other alcohol or current drug use. REVIEW OF SYSTEMS: Positive for about 8-pound weight loss, negative for other neurologic, endocrine, cardiac, pulmonary, gastrointestinal, musculoskeletal, lymphatic, hematologic, or psychiatric complaints, except as noted above. He does have some anxiety. PHYSICAL EXAMINATION: Vital Signs: 97.6 degrees Fahrenheit, 61 beats per minute, 131/73 mmHg, respirations 16 per minute, 95% oxygen saturation on room air. The patient does have clubbing which is evident. No pallor or icterus. There is no thyromegaly or thyroid nodules. There is a 1.5-cm firm mobile right supraclavicular lymph node medially located. No other supraclavicular, cervical , axillary adenopathy bilaterally. Chest: Clear to percussion and auscultation bilaterally. Heart: Regular. Abdomen: Thin, benign, nontender, nondistended, without hepatosplenomegaly. Extremities: Normal strength, sensation, tone, and reflexes. Neurological: He is alert and oriented x3. PATHOLOGIC DATA: Pending receipt from [facility]. RADIOLOGIC DATA: Pending receipt. Chest x-ray here on October 22, 2016, shows increased opacification of the right upper lung worsened, with right hilar adenopathy as well. LABORATORY DATA: White count 13.5, hemoglobin 11.8, hematocrit 37.5, platelets 741,000. Albumin 2.5, calcium 8.8, sodium 137. Other chemistries are normal. IMPRESSION: The patient is a 50-year-old gentleman who appears to be a stage IIIB T2 N3 M0 adenocarcinoma of the right upper lobe. The plan is to start chemotherapy. With the postobstructive pneumonic process, I would favor concurrent radiation therapy with the chemotherapy. I shall speak with Dr. You and Dr. Lord about this next week. The possible 6 weeks of radiation therapy with the chemotherapy was discussed with the patient. I reviewed the possible side effects including but not limited to, fatigue, myelosuppression, skin erythema, desquamation, esophagitis, pneumonitis, and unlikely radiation effects on the heart. The patient understood, had a chance to ask questions, and wanted to speak to Dr. Lord before making a final decision about his treatment. PLAN: We shall speak with Dr. Lord. The patient appears stable at the moment. There is no need for emergent radiation therapy. TESSA URIBE M.D. LISSY/[id number] cc: Chantel You MD; Estrada Lord MD; Alden Dial MD; Miladys Reyes MD MTDD
--- NOTE | 2016-10-25 16:13 | PN ---
Progress Note, Physician History of Present Illness: Pt c/o neck pain wc he has had for many months - Current Medication List Current Medications: Active Medications Acetaminophen (Tylenol -) 1,000 mg PO Q6H PRN PRN Reason: FEVER OR PAIN Last Admin: 10/25/16 13:33 Dose: 1,000 mg Albuterol/Ipratropium (Duoneb -) 1 amp NEB Q6H PRN PRN Reason: SHORTNESS OF BREATH Last Admin: 10/24/16 21:55 Dose: 1 amp Enoxaparin Sodium (Lovenox -) 40 mg SQ DAILY [facility] Last Admin: 10/25/16 10:17 Dose: 40 mg Folic Acid (Folic Acid -) 1 mg PO DAILY [facility] Last Admin: 10/25/16 10:18 Dose: 1 mg Azithromycin 250 mg/ Dextrose 250 mls @ 250 mls/hr IVPB DAILY [facility] Last Admin: 10/25/16 12:04 Dose: 250 mls/hr Ceftriaxone Sodium (Rocephin 1gm Ivpb (Pre-Docked)) 50 mls @ 100 mls/hr IVPB HS [facility] Last Admin: 10/24/16 22:14 Dose: 100 mls/hr Levothyroxine Sodium (Synthroid -) 25 mcg PO ACBK [facility] Last Admin: 10/25/16 06:34 Dose: 25 mcg Nicotine (Nicoderm Patch -) 14 mg TD DAILY [facility] Last Admin: 10/25/16 10:17 Dose: 14 mg - Objective Vital Signs: Vital Signs Temperature 97.9 F 10/25/16 14:39 Pulse Rate 60 10/25/16 14:39 Respiratory Rate 16 10/25/16 14:39 Blood Pressure 128/78 10/25/16 14:39 O2 Sat by Pulse Oximetry (%) 95 10/25/16 09:00 Constitutional: Yes: No Distress Neck: Yes: Supple Cardiovascular: Yes: WNL, Regular Rate and Rhythm Respiratory: Yes: Rhonchi Gastrointestinal: Yes: WNL, Normal Bowel Sounds, Soft Extremities: Yes: WNL Edema: No Labs: CBC, BMP 10/24/16 06:30 10/24/16 06:30 INR, PTT INR 1.16 (0.82-1.09) H 10/22/16 19:44 Problem List - Problems (1) Pneumonia Assessment/Plan: Cont IV ceftriaxone/zithro CAP/post obstructive pneumonia Cont nebulizer Repeat imaging of chest as per onco Code(s): J18.9 - PNEUMONIA, UNSPECIFIED ORGANISM Qualifiers: Pneumonia type: due to unspecified organism Laterality: right Lung location: upper lobe of lung Qualified Code(s): J18.9 - Pneumonia, unspecified organism (2) Lung cancer Assessment/Plan: Stage 3b nonsmall cell ca of lung(RUL mass) Pt scheduled for chemotx(has port) and RT Further management as per onco Code(s): C34.90 - MALIGNANT NEOPLASM OF UNSP PART OF UNSP BRONCHUS OR LUNG (3) COPD (chronic obstructive pulmonary disease) Code(s): J44.9 - CHRONIC OBSTRUCTIVE PULMONARY DISEASE, UNSPECIFIED (4) Anemia Code(s): D64.9 - ANEMIA, UNSPECIFIED (5) Hypothyroidism Code(s): E03.9 - HYPOTHYROIDISM, UNSPECIFIED Assessment/Plan 1. Neck pain Will check xray of cervical spine
--- NOTE | 2016-10-25 18:01 | PN ---
Progress Note (short form) - Note Progress Note: Patient seen and examined Fels much better Last Vital Signs Temp Pulse Resp BP Pulse Ox 97.9 F 60 16 128/78 95 10/25/16 14:39 10/25/16 14:39 10/25/16 14:39 10/25/16 14:39 10/25/16 09:00 Cor: RSR, No murmurs, No gallops Lungs: decreased rt. lung sounds Abd: Soft, Normal bowel sounds, No organomegaly Ext:No significant edema Skin: No rashes, Integument intact Current Medications Acetaminophen (Tylenol -) 1,000 mg PO Q6H PRN PRN Reason: FEVER OR PAIN Last Admin: 10/25/16 13:33 Dose: 1,000 mg Albuterol/Ipratropium (Duoneb -) 1 amp NEB Q6H PRN PRN Reason: SHORTNESS OF BREATH Last Admin: 10/24/16 21:55 Dose: 1 amp Enoxaparin Sodium (Lovenox -) 40 mg SQ DAILY [facility] Last Admin: 10/25/16 10:17 Dose: 40 mg Folic Acid (Folic Acid -) 1 mg PO DAILY [facility] Last Admin: 10/25/16 10:18 Dose: 1 mg Azithromycin 250 mg/ Dextrose 250 mls @ 250 mls/hr IVPB DAILY [facility] Last Admin: 10/25/16 12:04 Dose: 250 mls/hr Ceftriaxone Sodium (Rocephin 1gm Ivpb (Pre-Docked)) 50 mls @ 100 mls/hr IVPB HS [facility] Last Admin: 10/24/16 22:14 Dose: 100 mls/hr Levothyroxine Sodium (Synthroid -) 25 mcg PO ACBK [facility] Last Admin: 10/25/16 06:34 Dose: 25 mcg Nicotine (Nicoderm Patch -) 14 mg TD DAILY [facility] Last Admin: 10/25/16 10:17 Dose: 14 mg A/P 50 y/o patient with stage IIIB nonsmall cell, poorly diff. adeno ca with 9cm RUL mass, N3 nodes on PET-scan MRI brain neg. Patient coming in with chest pressure/headaches/orthopnea/mild hemoptysis Symptoms much improved on antibiotics If symptoms recur or persist will repeat imagin CT chest with contrast --? SVC syndrome On B12/folate for chemotherapy---carboplatin/alimta. Hold avastin given hemoptysis RT consult noted
[2016-10-25] MEDS: CEFTRIAXONE 50 ML IVPB SCH (21:51)
[2016-10-26] MEDS: ACETAMINOPHEN 325 MG TABLET (FP) PO PRN ×3 (04:05→16:36)
[2016-10-26] MEDS: LEVOTHYROXINE NA 25 MCG TABLET (FP) PO SCH (06:22)
[2016-10-26 07:37] LABS: MCHC 31.5 g/dl (32.0-35.9); MEAN CELL VOLUME 61.2 fl (80-96); MEAN PLT VOLUME 6.4 fl (7.5-11.1); PLATELET COUNT 719 K/MM3 (134-434); RDW 15.6 % (11.9-15.9); WHITE BLOOD COUNT 13.3 K/mm3 (4.0-10.0)
[2016-10-26 07:59] LABS: MCH 19.3 pg (25.7-33.7)
[2016-10-26 08:52] LABS: ALBUMIN 2.5 g/dl (3.4-5.0); ANION GAP 7 (8-16); CALCIUM 8.7 mg/dL (8.5-10.1); CO2 30 mmol/L (21-32); CREATININE 0.8 mg/dL (0.7-1.3); GLUCOSE,RANDOM 72 mg/dL (74-106); SGOT/AST 17 U/L (15-37); SGPT/ALT 11 U/L (12-78)
[2016-10-26 09:02] LABS: ALK PHOS 99 U/L (45-117); BILIRUBIN,TOTAL 0.3 mg/dL (0.2-1.0); TOT PROT 6.2 g/dl (6.4-8.2)
[2016-10-26 09:49] LABS: ANISOCYTOSIS 2+; HYPOCHROMIA 1+; MICROCYTOSIS 2+; PLATELET ESTIMATE INCREASED (NORMAL); TARGET CELLS 1+
[2016-10-26] MEDS: ENOXAPARIN NA (PORCINE) 40 MG/0.4 ML DISP.SYRIN SQ SCH (10:01)
[2016-10-26] MEDS: FOLIC ACID 1 MG TABLET (FP) PO SCH (10:01)
[2016-10-26] MEDS: NICOTINE 14 MG/24 HOURS TOPICAL PATCH TD SCH (10:02)
--- NOTE | 2016-10-26 11:01 | PN ---
Progress Note (short form) - Note Progress Note: PULMONARY AWAKE/ALERT HAS LEFT SHOULDER PAIN WITH cervical pain ANICTERIC DIMINISHED BREATH SOUNDS RIGHT POSTERIOR UPPER LUNG ZONE S1S2 BS+ NO EDEMA LABS/MEDS/NOTES/IMAGING REVIEWED POORLY DIFFERENTIATED ADENO STAGE 3B POST OBSTRUCTIVE PNEUMONITIS CONTINUE ANTIBIOTICS/O2/BRONCHODILATORS SCHEDULED FOR CHEMOTX WOULD ORDER BONE SCAN R/O METS WILL FOLLOW R MOO POST Problem List - Problems (1) Lung mass Code(s): R91.8 - OTHER NONSPECIFIC ABNORMAL FINDING OF LUNG FIELD (2) Pneumonia Code(s): J18.9 - PNEUMONIA, UNSPECIFIED ORGANISM Qualifiers: Pneumonia type: due to unspecified organism Laterality: right Lung location: upper lobe of lung Qualified Code(s): J18.9 - Pneumonia, unspecified organism (3) Epistaxis, recurrent Code(s): R04.0 - EPISTAXIS (4) Lung cancer Code(s): C34.90 - MALIGNANT NEOPLASM OF UNSP PART OF UNSP BRONCHUS OR LUNG
[2016-10-26] MEDS ORDERED: SODIUM CHLORIDE 1,000 ML IV SCH (11:15)
[2016-10-26] MEDS: AZITHROMYCIN IVPB 250 MG in DEXTROSE 5%-WATER - 250 ML IVPB SCH (12:30)
--- NOTE | 2016-10-26 13:45 | PN ---
Progress Note (short form) - Note Progress Note: Patient seen and examined c/o neck pain. Last Vital Signs Temp Pulse Resp BP Pulse Ox 98.0 F 71 18 126/70 96 10/26/16 10:00 10/26/16 10:00 10/26/16 10:00 10/26/16 10:00 10/26/16 09:00 Cor: RSR, No murmurs, No gallops Lungs: decreased rt. lung sounds Abd: Soft, Normal bowel sounds, No organomegaly Ext:No significant edema Skin: No rashes, Integument intact Current Medications Acetaminophen (Tylenol -) 650 mg PO Q6H PRN PRN Reason: FEVER OR PAIN Last Admin: 10/26/16 10:02 Dose: 650 mg Albuterol/Ipratropium (Duoneb -) 1 amp NEB Q6H PRN PRN Reason: SHORTNESS OF BREATH Last Admin: 10/24/16 21:55 Dose: 1 amp Enoxaparin Sodium (Lovenox -) 40 mg SQ DAILY [facility] Last Admin: 10/26/16 10:01 Dose: 40 mg Folic Acid (Folic Acid -) 1 mg PO DAILY [facility] Last Admin: 10/26/16 10:01 Dose: 1 mg Azithromycin 250 mg/ Dextrose 250 mls @ 250 mls/hr IVPB DAILY [facility] Last Admin: 10/26/16 12:30 Dose: 250 mls/hr Ceftriaxone Sodium (Rocephin 1gm Ivpb (Pre-Docked)) 50 mls @ 100 mls/hr IVPB HS [facility] Last Admin: 10/25/16 21:51 Dose: 100 mls/hr Sodium Chloride (Normal Saline -) 1,000 mls @ 42 mls/hr IV ASDIR [facility] Last Admin: 10/26/16 12:32 Dose: 42 mls/hr Levothyroxine Sodium (Synthroid -) 25 mcg PO ACBK [facility] Last Admin: 10/26/16 06:22 Dose: 25 mcg Nicotine (Nicoderm Patch -) 14 mg TD DAILY [facility] Last Admin: 10/26/16 10:02 Dose: 14 mg A/P 50 y/o patient with stage IIIB nonsmall cell, poorly diff. adeno ca with 9cm RUL mass, N3 nodes on PET-scan MRI brain neg. Patient coming in with chest pressure/headaches/orthopnea/mild hemoptysis c/o neck and upperback/chest pain check CT chest to r/o SVC syndrome On B12/folate for chemotherapy---carboplatin/alimta. Hold avastin given hemoptysis RT consult noted
[2016-10-26] MEDS ORDERED: traMADol HCL 50 MG TABLET PO PRN (20:33)
--- NOTE | 2016-10-26 21:22 | PN ---
Progress Note, Physician History of Present Illness: No new complaints - Current Medication List Current Medications: Active Medications Acetaminophen (Tylenol -) 650 mg PO Q6H PRN PRN Reason: FEVER OR PAIN Last Admin: 10/26/16 16:36 Dose: 650 mg Albuterol/Ipratropium (Duoneb -) 1 amp NEB Q6H PRN PRN Reason: SHORTNESS OF BREATH Last Admin: 10/24/16 21:55 Dose: 1 amp Enoxaparin Sodium (Lovenox -) 40 mg SQ DAILY [facility] Last Admin: 10/26/16 10:01 Dose: 40 mg Folic Acid (Folic Acid -) 1 mg PO DAILY [facility] Last Admin: 10/26/16 10:01 Dose: 1 mg Azithromycin 250 mg/ Dextrose 250 mls @ 250 mls/hr IVPB DAILY [facility] Last Admin: 10/26/16 12:30 Dose: 250 mls/hr Ceftriaxone Sodium (Rocephin 1gm Ivpb (Pre-Docked)) 50 mls @ 100 mls/hr IVPB HS [facility] Last Admin: 10/25/16 21:51 Dose: 100 mls/hr Levothyroxine Sodium (Synthroid -) 25 mcg PO ACBK [facility] Last Admin: 10/26/16 06:22 Dose: 25 mcg Nicotine (Nicoderm Patch -) 14 mg TD DAILY [facility] Last Admin: 10/26/16 10:02 Dose: 14 mg Tramadol HCl (Ultram -) 50 mg PO Q8H PRN - Objective Vital Signs: Vital Signs Temperature 97.9 F 10/26/16 18:00 Pulse Rate 64 10/26/16 18:00 Respiratory Rate 18 10/26/16 20:45 Blood Pressure 122/83 10/26/16 18:00 O2 Sat by Pulse Oximetry (%) 96 10/26/16 20:45 Constitutional: Yes: No Distress Neck: Yes: Supple Cardiovascular: Yes: WNL, Regular Rate and Rhythm Respiratory: Yes: WNL, Regular, CTA Bilaterally Labs: CBC, BMP 10/26/16 06:20 10/26/16 06:20 INR, PTT INR 1.16 (0.82-1.09) H 10/22/16 19:44 Problem List - Problems (1) Pneumonia Assessment/Plan: Cont IV ceftriaxone/zithro CAP/post obstructive pneumonia Cont nebulizer CT scan chest showed RUL mass increased and ?adrenal mumtaz/pericardial effusion Code(s): J18.9 - PNEUMONIA, UNSPECIFIED ORGANISM Qualifiers: Pneumonia type: due to unspecified organism Laterality: right Lung location: upper lobe of lung Qualified Code(s): J18.9 - Pneumonia, unspecified organism (2) Lung cancer Assessment/Plan: Stage 3b nonsmall cell ca of lung(RUL mass) Pt scheduled for chemotx(has port) and RT Further management as per onco Code(s): C34.90 - MALIGNANT NEOPLASM OF UNSP PART OF UNSP BRONCHUS OR LUNG (3) COPD (chronic obstructive pulmonary disease) Code(s): J44.9 - CHRONIC OBSTRUCTIVE PULMONARY DISEASE, UNSPECIFIED (4) Anemia Code(s): D64.9 - ANEMIA, UNSPECIFIED (5) Hypothyroidism Code(s): E03.9 - HYPOTHYROIDISM, UNSPECIFIED
[2016-10-26] MEDS: CEFTRIAXONE 50 ML IVPB SCH (21:28)
[2016-10-27] MEDS: ACETAMINOPHEN 325 MG TABLET (FP) PO PRN ×2 (04:23→11:32)
[2016-10-27] MEDS: LEVOTHYROXINE NA 25 MCG TABLET (FP) PO SCH (06:07)
--- NOTE | 2016-10-27 07:38 | PN ---
Progress Note (short form) - Note Progress Note: Patient's breathing is much better. Chest CT shows increasing mass with mediastinal invasion, increased pericardial effusion, and the possibility of bilateral adrenal metastases. He has neck and bilateral shoulder pain (L>R) especially when coughing. Chemotherapy is planned. We can deliver RT as an outpatient to increase the chance for chest control if Dr. Lord agrees. Problem List - Problems (1) Lung cancer Code(s): C34.90 - MALIGNANT NEOPLASM OF UNSP PART OF UNSP BRONCHUS OR LUNG Qualifiers: Laterality: right Lung location: upper lobe of lung Qualified Code(s): C34.11 - Malignant neoplasm of upper lobe, right bronchus or lung
[2016-10-27] MEDS: ENOXAPARIN NA (PORCINE) 40 MG/0.4 ML DISP.SYRIN SQ SCH (09:56)
[2016-10-27] MEDS: NICOTINE 14 MG/24 HOURS TOPICAL PATCH TD SCH (09:57)
[2016-10-27] MEDS: FOLIC ACID 1 MG TABLET (FP) PO SCH (09:57)
--- NOTE | 2016-10-27 10:56 | PN ---
Progress Note (short form) - Note Progress Note: Reports feeling better overall. Minimal dry cough. No fever. Intake & Output 10/24/16 10/25/16 10/26/16 10/27/16 23:59 23:59 23:59 23:59 Intake Total 1750 750 800 100 Output Total 500 Balance 1250 750 800 100 Last Vital Signs Temp Pulse Resp BP Pulse Ox 97.8 F 64 18 121/81 96 10/27/16 06:59 10/27/16 06:59 10/27/16 06:59 10/27/16 06:59 10/26/16 20:45 Active Medications Acetaminophen (Tylenol -) 650 mg PO Q6H PRN PRN Reason: FEVER OR PAIN Last Admin: 10/27/16 04:23 Dose: 650 mg Albuterol/Ipratropium (Duoneb -) 1 amp NEB Q6H PRN PRN Reason: SHORTNESS OF BREATH Last Admin: 10/24/16 21:55 Dose: 1 amp Enoxaparin Sodium (Lovenox -) 40 mg SQ DAILY [facility] Last Admin: 10/27/16 09:56 Dose: 40 mg Folic Acid (Folic Acid -) 1 mg PO DAILY [facility] Last Admin: 10/27/16 09:57 Dose: 1 mg Azithromycin 250 mg/ Dextrose 250 mls @ 250 mls/hr IVPB DAILY [facility] Last Admin: 10/26/16 12:30 Dose: 250 mls/hr Ceftriaxone Sodium (Rocephin 1gm Ivpb (Pre-Docked)) 50 mls @ 100 mls/hr IVPB HS [facility] Last Admin: 10/26/16 21:28 Dose: 100 mls/hr Levothyroxine Sodium (Synthroid -) 25 mcg PO ACBK [facility] Last Admin: 10/27/16 06:07 Dose: 25 mcg Nicotine (Nicoderm Patch -) 14 mg TD DAILY [facility] Last Admin: 10/27/16 09:57 Dose: 14 mg Tramadol HCl (Ultram -) 50 mg PO Q8H PRN Last Admin: 10/26/16 21:28 Dose: 50 mg Constitutional: Yes: No Distress Neck: Yes: Supple Cardiovascular: Yes: WNL, Regular Rate and Rhythm Respiratory: Yes: Few scattered rhonchi Labs: Problem List - Problems (1) Pneumonia Assessment/Plan: Code(s): J18.9 - PNEUMONIA, UNSPECIFIED ORGANISM Qualifiers: Pneumonia type: due to unspecified organism Laterality: right Lung location: upper lobe of lung Qualified Code(s): J18.9 - Pneumonia, unspecified organism (2) Lung cancer Assessment/Plan: Code(s): C34.90 - MALIGNANT NEOPLASM OF UNSP PART OF UNSP BRONCHUS OR LUNG (3) COPD (chronic obstructive pulmonary disease) Code(s): J44.9 - CHRONIC OBSTRUCTIVE PULMONARY DISEASE, UNSPECIFIED (4) Anemia Code(s): D64.9 - ANEMIA, UNSPECIFIED (5) Hypothyroidism Code(s): E03.9 - HYPOTHYROIDISM, UNSPECIFIED PLAN: Will D/C ABX today and observe (Suspect changes on imaging are more of tumor expansion rather than PNA) O2 as needed For Chemotherapy today No smoking Will follow Dr Figueroa
[2016-10-27] MEDS: AZITHROMYCIN IVPB 250 MG in DEXTROSE 5%-WATER - 250 ML IVPB SCH (13:22)
--- NOTE | 2016-10-27 15:18 | PN ---
Progress Note (short form) - Note Progress Note: Patient seen and examined. Complains of nek pains. CT of C-spine - non revealing. Last Vital Signs Temp Pulse Resp BP Pulse Ox 97.3 F L 62 18 107/77 93 L 10/27/16 10:00 10/27/16 10:00 10/27/16 10:00 10/27/16 10:00 10/27/16 09:00 HEENT: SILVINO, EOM Intact Oropharynx: No thrush, No mucositis Neck: Supple Nodes: right supraclavicular node Cor: RSR, No murmurs, No gallops Lungs:diminished breath sounds bilaterally Abd: Soft, Normal bowel sounds, No organomegaly Ext:No significant edema Skin: No rashes, Integument intact CBC, BMP 10/26/16 06:20 10/26/16 06:20 Current Medications Generic Name Dose Route Start Last Admin Trade Name Freq PRN Reason Stop Dose Admin Acetaminophen 650 mg 10/26/16 02:24 10/27/16 11:32 Tylenol - PO 650 mg Q6H PRN Administration FEVER OR PAIN Albuterol/Ipratropium 1 amp 10/23/16 12:13 10/24/16 21:55 Duoneb - NEB 1 amp Q6H PRN Administration SHORTNESS OF BREATH Enoxaparin Sodium 40 mg 10/23/16 12:15 10/27/16 09:56 Lovenox - SQ 40 mg DAILY [facility] Administration Folic Acid 1 mg 10/23/16 23:40 10/27/16 09:57 Folic Acid - PO 1 mg DAILY [facility] Administration Levothyroxine Sodium 25 mcg 10/25/16 07:00 10/27/16 06:07 Synthroid - PO 25 mcg ACBK [facility] Administration Nicotine 14 mg 10/23/16 15:30 10/27/16 09:57 Nicoderm Patch - TD 14 mg DAILY [facility] Administration Tramadol HCl 50 mg 10/26/16 20:33 10/26/16 21:28 Ultram - PO 50 mg Q8H PRN Administration Impression: [place]en[place] of lung possibly Stage IV (adrenal mets) Pericardial effusion-- awaiting ECHO Neck pains __ CT non revealing Post obstructive pneumonia- improved with antibiotics Hypothyroidism Plan: Await ECHO Timing of Chemotherapy problematic.--Ideally as outpatient . Would hope to be able to be discharged and treat as outpatient. Oxycodone for pain.
[2016-10-27] MEDS: oxyCODONE HCL 5 MG TABLET PO PRN ×2 (17:00→21:30)
--- NOTE | 2016-10-27 19:58 | PN ---
Progress Note, Physician - Current Medication List Current Medications: Active Medications Acetaminophen (Tylenol -) 650 mg PO Q6H PRN PRN Reason: FEVER OR PAIN Last Admin: 10/27/16 11:32 Dose: 650 mg Albuterol/Ipratropium (Duoneb -) 1 amp NEB Q6H PRN PRN Reason: SHORTNESS OF BREATH Last Admin: 10/24/16 21:55 Dose: 1 amp Enoxaparin Sodium (Lovenox -) 40 mg SQ DAILY [facility] Last Admin: 10/27/16 09:56 Dose: 40 mg Folic Acid (Folic Acid -) 1 mg PO DAILY [facility] Last Admin: 10/27/16 09:57 Dose: 1 mg Levothyroxine Sodium (Synthroid -) 25 mcg PO ACBK [facility] Last Admin: 10/27/16 06:07 Dose: 25 mcg Nicotine (Nicoderm Patch -) 14 mg TD DAILY [facility] Last Admin: 10/27/16 09:57 Dose: 14 mg Oxycodone HCl (Roxicodone -) 5 mg PO Q4H PRN PRN Reason: PAIN Last Admin: 10/27/16 17:00 Dose: 5 mg Tramadol HCl (Ultram -) 50 mg PO Q8H PRN Last Admin: 10/26/16 21:28 Dose: 50 mg - Objective Vital Signs: Vital Signs Temperature 97.5 F L 10/27/16 17:36 Pulse Rate 71 10/27/16 17:36 Respiratory Rate 18 10/27/16 17:36 Blood Pressure 115/67 10/27/16 17:36 O2 Sat by Pulse Oximetry (%) 93 L 10/27/16 09:00 Neck: Yes: Supple Cardiovascular: Yes: WNL, Regular Rate and Rhythm Respiratory: Yes: Other (Coarse bs B/L) Gastrointestinal: Yes: WNL, Normal Bowel Sounds, Soft Labs: CBC, BMP 10/26/16 06:20 10/26/16 06:20 INR, PTT INR 1.16 (0.82-1.09) H 10/22/16 19:44 Problem List - Problems (1) Pneumonia Assessment/Plan: Pt is now off antibxs DC planning for am Cont nebulizer CT scan chest showed RUL mass increased and ?adrenal mumtaz/pericardial effusion Code(s): J18.9 - PNEUMONIA, UNSPECIFIED ORGANISM Qualifiers: Pneumonia type: due to unspecified organism Laterality: right Lung location: upper lobe of lung Qualified Code(s): J18.9 - Pneumonia, unspecified organism (2) Lung cancer Assessment/Plan: Stage 3b nonsmall cell ca of lung(RUL mass) Pt to have chemotx(has port) and RT as outpt Further management as per onco Code(s): C34.90 - MALIGNANT NEOPLASM OF UNSP PART OF UNSP BRONCHUS OR LUNG Qualifiers: Laterality: right Lung location: upper lobe of lung Qualified Code(s): C34.11 - Malignant neoplasm of upper lobe, right bronchus or lung (3) COPD (chronic obstructive pulmonary disease) Assessment/Plan: Cont duoneb Long d/w pt about need for smoking cessation Nicotine patch Code(s): J44.9 - CHRONIC OBSTRUCTIVE PULMONARY DISEASE, UNSPECIFIED (4) Anemia Code(s): D64.9 - ANEMIA, UNSPECIFIED (5) Hypothyroidism Code(s): E03.9 - HYPOTHYROIDISM, UNSPECIFIED
[2016-10-28] MEDS: oxyCODONE HCL 5 MG TABLET PO PRN ×4 (04:01→22:42)
[2016-10-28] MEDS: LEVOTHYROXINE NA 25 MCG TABLET (FP) PO SCH (06:05)
[2016-10-28 07:17] LABS: BASOPHIL 1.6 % (0-2.0); EOSINOPHIL 4.1 % (0-4.5); MCHC 31.9 g/dl (32.0-35.9); MEAN CELL VOLUME 61.2 fl (80-96); MEAN PLT VOLUME 6.4 fl (7.5-11.1); PLATELET COUNT 668 K/MM3 (134-434); WHITE BLOOD COUNT 14.2 K/mm3 (4.0-10.0)
[2016-10-28 07:29] LABS: MCH 19.5 pg (25.7-33.7)
[2016-10-28 07:39] LABS: ALBUMIN 2.6 g/dl (3.4-5.0); ALK PHOS 94 U/L (45-117); ANION GAP 10 (8-16); BILIRUBIN,TOTAL 0.2 mg/dL (0.2-1.0); CALCIUM 8.9 mg/dL (8.5-10.1); CO2 30 mmol/L (21-32); CREATININE 0.9 mg/dL (0.7-1.3); GLUCOSE,RANDOM 75 mg/dL (74-106); SGOT/AST 16 U/L (15-37); SGPT/ALT 13 U/L (12-78); TOT PROT 6.3 g/dl (6.4-8.2)
[2016-10-28] MEDS: NICOTINE 14 MG/24 HOURS TOPICAL PATCH TD SCH (09:30)
[2016-10-28] MEDS: ENOXAPARIN NA (PORCINE) 40 MG/0.4 ML DISP.SYRIN SQ SCH (09:30)
[2016-10-28] MEDS: FOLIC ACID 1 MG TABLET (FP) PO SCH (09:30)
--- NOTE | 2016-10-28 12:14 | DS ---
Physical Examination Vital Signs: Vital Signs Temperature 98.2 F 10/28/16 06:46 Pulse Rate 78 10/28/16 06:46 Respiratory Rate 18 10/28/16 06:46 Blood Pressure 122/59 10/28/16 06:46 O2 Sat by Pulse Oximetry (%) 93 L 10/27/16 21:00 Constitutional: Yes: No Distress Neck: Yes: Supple Cardiovascular: Yes: WNL, Regular Rate and Rhythm Respiratory: Yes: WNL, Regular, CTA Bilaterally Gastrointestinal: Yes: WNL, Normal Bowel Sounds, Soft Labs: CBC, BMP 10/28/16 06:00 10/28/16 06:00 Discharge Summary Reason For Visit: PNEUMONIA LUNG MASS Current Active Problems Anemia (Acute) COPD (chronic obstructive pulmonary disease) (Acute) Hypothyroidism (Acute) Lung cancer (Acute) Lung mass (Acute) Pneumonia (Acute) Condition: Fair - Instructions Diet, Activity, Other Instructions: regular diet Referrals: Jp Rolon MD [Primary Care Provider] - Disposition: HOME - Home Medications Comprehensive Discharge Medication List: Ambulatory Orders Levothyroxine [Synthroid -] 25 mcg PO DAILY 11/29/12 Acetaminophen [Tylenol] 325 mg PO QID PRN 10/22/16 Guaifenesin [Mucinex -] 600 mg PO BID 10/22/16 Acetaminophen [Tylenol .Regular Strength -] 650 mg PO Q6H PRN #90 tablet Folic Acid - 1 mg PO DAILY #30 tablet 10/28/16 Nicotine Patch [Nicoderm Patch -] 14 mg TD DAILY #30 patch 10/28/16
--- NOTE | 2016-10-28 15:14 | PN ---
Progress Note (short form) - Note Progress Note: PULMONARY Breathing better but still with chest tightness. Minimal cough. No fevers or chills. Echo showing large pericardial effusion mostly anterior with evidence of tamponade. Last Vital Signs Temp Pulse Resp BP Pulse Ox 97.5 F L 73 18 104/74 93 L 10/28/16 15:05 10/28/16 15:05 10/28/16 15:05 10/28/16 15:05 10/28/16 09:00 Gen: NAD at rest Heart: RRR Lung: distant breath sounds, scattered rhonchi Abd: soft, nontender Ext: no edema CBC, BMP 10/28/16 06:00 10/28/16 06:00 Active Medications Acetaminophen (Tylenol -) 650 mg PO Q6H PRN PRN Reason: FEVER OR PAIN Last Admin: 10/27/16 11:32 Dose: 650 mg Albuterol/Ipratropium (Duoneb -) 1 amp NEB Q6H PRN PRN Reason: SHORTNESS OF BREATH Last Admin: 10/24/16 21:55 Dose: 1 amp Enoxaparin Sodium (Lovenox -) 40 mg SQ DAILY [facility] Last Admin: 10/28/16 09:30 Dose: 40 mg Folic Acid (Folic Acid -) 1 mg PO DAILY [facility] Last Admin: 10/28/16 09:30 Dose: 1 mg Levothyroxine Sodium (Synthroid -) 25 mcg PO ACBK [facility] Last Admin: 10/28/16 06:05 Dose: 25 mcg Nicotine (Nicoderm Patch -) 14 mg TD DAILY [facility] Last Admin: 10/28/16 09:30 Dose: 14 mg Oxycodone HCl (Roxicodone -) 5 mg PO Q4H PRN PRN Reason: PAIN Last Admin: 10/28/16 09:29 Dose: 5 mg Tramadol HCl (Ultram -) 50 mg PO Q8H PRN Last Admin: 10/26/16 21:28 Dose: 50 mg A/P Stage IIIB NSCLC Pericardial Effusion/Tamponade COPD - CTS evaluation - inhaled bronchodilators - monitor off antibiotics - O2 as needed - DVT prophylaxis
--- NOTE | 2016-10-28 15:40 | PN ---
Progress Note (short form) - Note Progress Note: Patient seen and examined c/o pain Last Vital Signs Temp Pulse Resp BP Pulse Ox 97.5 F L 73 18 104/74 93 L 10/28/16 15:05 10/28/16 15:05 10/28/16 15:05 10/28/16 15:05 10/28/16 09:00 Cor: RSR, No murmurs, No gallops Lungs: decreased rt. lung sounds Abd: Soft, Normal bowel sounds, No organomegaly Ext:No significant edema Skin: No rashes, Integument intact Current Medications Acetaminophen (Tylenol -) 650 mg PO Q6H PRN PRN Reason: FEVER OR PAIN Last Admin: 10/27/16 11:32 Dose: 650 mg Albuterol/Ipratropium (Duoneb -) 1 amp NEB Q6H PRN PRN Reason: SHORTNESS OF BREATH Last Admin: 10/24/16 21:55 Dose: 1 amp Enoxaparin Sodium (Lovenox -) 40 mg SQ DAILY [facility] Last Admin: 10/28/16 09:30 Dose: 40 mg Folic Acid (Folic Acid -) 1 mg PO DAILY [facility] Last Admin: 10/28/16 09:30 Dose: 1 mg Levothyroxine Sodium (Synthroid -) 25 mcg PO ACBK [facility] Last Admin: 10/28/16 06:05 Dose: 25 mcg Nicotine (Nicoderm Patch -) 14 mg TD DAILY [facility] Last Admin: 10/28/16 09:30 Dose: 14 mg Oxycodone HCl (Roxicodone -) 5 mg PO Q4H PRN PRN Reason: PAIN Last Admin: 10/28/16 09:29 Dose: 5 mg Tramadol HCl (Ultram -) 50 mg PO Q8H PRN Last Admin: 10/26/16 21:28 Dose: 50 mg Abnormal Lab Results 10/28/16 10/28/16 06:00 06:00 WBC 14.2 H RBC 5.77 H Hgb 11.3 L Hct 35.3 L MCV 61.2 L MCHC 31.9 L RDW 16.0 H Plt Count 668 H MPV 6.4 L Sodium 133 L Chloride 93 L Total Protein 6.3 L Albumin 2.6 L A/P 50 y/o patient with stage IIIB nonsmall cell, poorly diff. adeno ca with 9cm RUL mass, N3 nodes on PET-scan MRI brain neg. Patient coming in with chest pressure/headaches/orthopnea/mild hemoptysis c/o neck and upperback/chest pain CT chest shows no e/o SVC syndrome Echo cardiogram shows large pericardial effusion possible tamponade physiology will get cardiology/CT surgery consults discussed with patient
--- NOTE | 2016-10-28 19:12 | CONSULT ---
Consult Consult Specialty:: Thoracic Surgery Referred by:: Dr. Sree Davis Reason for Consultation:: Pericardial effusion - History of Present Illness Chief Complaint: Pericardial effusion History of Present Illness: A 50-year-old male with history of NSCLC (stage IIIB) who presented to [facility] with complaints of worsening SOB, blood-tinged sputum production and chest tightness. His workup including chest x-ray and initial CT chest showed RUL lung mass, multiple lymphadenopathy with possible adrenal metastatic lesions and small pericardial effusion. Subsequently he obtained echocardiogram which showed large pericardial effusion. He reports that his symptoms have improved since the admission. He denies fever, chills, dizziness, headache, and weight loss. 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 No: O2 Dependent Gastrointestinal: No: Ascites Hepatobiliary: No: Cirrhosis Renal/: No: Hemodialysis Infectious Disease: No: AIDS Musculoskeletal: No: Bursitis Rheumatology: No: Fibromyalgia Endocrine: Yes: Hypothyroidism. No: Diabetes Mellitus - Past Surgical History Additional Surgical History: Bronchoscopy and biopsy at [facility] ( Dr. [place]), right mediport placement. - Alcohol/Substance Use Hx Alcohol Use: Yes (daily) - Smoking History Smoking history: Current every day smoker Have you smoked in the past 12 months: Yes Aproximately how many cigarettes per day: 12 If you are a former smoker, when did you quit?: 1 wk ago - Social History History of Recent Travel: No Home Medications - Allergies Allergies/Adverse Reactions: Allergies Allergy/AdvReac Type Severity Reaction Status Date / Time No Known Allergies Allergy Verified 10/22/16 15:32 - Home Medications Home Medications: Ambulatory Orders Levothyroxine [Synthroid -] 25 mcg PO DAILY 11/29/12 Acetaminophen [Tylenol] 325 mg PO QID PRN 10/22/16 Guaifenesin [Mucinex -] 600 mg PO BID 10/22/16 Acetaminophen [Tylenol .Regular Strength -] 650 mg PO Q6H PRN #90 tablet Folic Acid - 1 mg PO DAILY #30 tablet 10/28/16 Nicotine Patch [Nicoderm Patch -] 14 mg TD DAILY #30 patch 10/28/16 Review of Systems - Review of Systems Constitutional: reports: Malaise Eyes: reports: No Symptoms HENT: reports: No Symptoms Neck: reports: No Symptoms Cardiovascular: reports: Other (chest tightness) Respiratory: reports: Cough, SOB, SOB on Exertion Gastrointestinal: reports: No Symptoms Genitourinary: reports: No Symptoms Breasts: reports: No Symptoms Reported Musculoskeletal: reports: No Symptoms Integumentary: reports: No Symptoms Neurological: reports: No Symptoms Endocrine: reports: No Symptoms Hematology/Lymphatic: reports: No Symptoms Psychiatric: reports: No Symptoms Physical Exam Vital Signs: Vital Signs Temperature 97.7 F 10/28/16 16:50 Pulse Rate 73 10/28/16 16:50 Respiratory Rate 18 10/28/16 16:50 Blood Pressure 131/81 10/28/16 16:50 O2 Sat by Pulse Oximetry (%) 93 L 10/28/16 09:00 Constitutional: Yes: No Distress Eyes: Yes: WNL HENT: Yes: WNL Neck: Yes: WNL Cardiovascular: Yes: Regular Rate and Rhythm (no jvd) Respiratory: Yes: Diminished (right lung) Gastrointestinal: Yes: WNL ...Rectal Exam: Yes: Deferred Renal/: Yes: WNL Breast(s): Yes: Other (deferred) Musculoskeletal: Yes: WNL Extremities: Yes: WNL Edema: No Peripheral Pulses WNL: Yes Integumentary: Yes: WNL Neurological: Yes: WNL Psychiatric: Yes: WNL Labs: CBC, BMP 10/28/16 06:00 10/28/16 06:00 Imaging - Results Chest X-ray: Report Reviewed Cat Scan: Report Reviewed EKG: Report Reviewed Problem List - Problems (1) Pericardial effusion Assessment/Plan: A 50-year-old male with history of NSCLC (stage IIIB) who presented to [facility] with complaints of SOB, SNYDER, and chest tightness. His radiographic studies and laboratory results were reviewed and discussed with the patient in extensive detail. He appears to have malignant pericardial effusion with no clinically signs of cardiac tamponade. He was given multiple options including pericardial drain and definitive surgical management (pericardial window). He wishes to have less invasive nonsurgical intervention. He is aware and understood his medical and surgical condition. All questions were answered in satisfactory manner. He remains stable clinically with no cardiopulmonary compromise at the present time. 1. Continue supportive care and antibiotics 2. Pericardial drain and culture/cytopathology study per IR service 3. Follow up pulmonary and medical/radiation oncology 4. Thank you for the interesting consults. Will follow with you. Code(s): I31.3 - PERICARDIAL EFFUSION (NONINFLAMMATORY)
--- NOTE | 2016-10-28 22:24 | PN ---
Progress Note, Physician History of Present Illness: No new complaints - Current Medication List Current Medications: Active Medications Acetaminophen (Tylenol -) 650 mg PO Q6H PRN PRN Reason: FEVER OR PAIN Last Admin: 10/27/16 11:32 Dose: 650 mg Albuterol/Ipratropium (Duoneb -) 1 amp NEB Q6H PRN PRN Reason: SHORTNESS OF BREATH Last Admin: 10/24/16 21:55 Dose: 1 amp Enoxaparin Sodium (Lovenox -) 40 mg SQ DAILY [facility] Last Admin: 10/28/16 09:30 Dose: 40 mg Folic Acid (Folic Acid -) 1 mg PO DAILY [facility] Last Admin: 10/28/16 09:30 Dose: 1 mg Levothyroxine Sodium (Synthroid -) 25 mcg PO ACBK [facility] Last Admin: 10/28/16 06:05 Dose: 25 mcg Nicotine (Nicoderm Patch -) 14 mg TD DAILY [facility] Last Admin: 10/28/16 09:30 Dose: 14 mg Oxycodone HCl (Roxicodone -) 5 mg PO Q4H PRN PRN Reason: PAIN Last Admin: 10/28/16 16:46 Dose: 5 mg Tramadol HCl (Ultram -) 50 mg PO Q8H PRN Last Admin: 10/26/16 21:28 Dose: 50 mg - Objective Vital Signs: Vital Signs Temperature 98.2 F 10/28/16 22:00 Pulse Rate 76 10/28/16 22:00 Respiratory Rate 20 10/28/16 22:00 Blood Pressure 114/72 10/28/16 22:00 O2 Sat by Pulse Oximetry (%) 92 L 10/28/16 21:00 Constitutional: Yes: No Distress Neck: Yes: Supple Cardiovascular: Yes: WNL, Regular Rate and Rhythm Respiratory: Yes: Other (Decreased BS on RT) Gastrointestinal: Yes: WNL, Normal Bowel Sounds, Soft Labs: CBC, BMP 10/28/16 06:00 10/28/16 06:00 INR, PTT INR 1.16 (0.82-1.09) H 10/22/16 19:44 Problem List - Problems (1) Pericardial effusion Assessment/Plan: After d/w CTS it was agreed by pt to have pericardial drain IR to do drain in am Code(s): I31.3 - PERICARDIAL EFFUSION (NONINFLAMMATORY) (2) Lung cancer Assessment/Plan: Stage 3b nonsmall cell ca of lung(RUL mass) Pt to have chemotx(has port) and RT as outpt Further management as per onco Pain controlled w/ tramadol/oxycodone Code(s): C34.90 - MALIGNANT NEOPLASM OF UNSP PART OF UNSP BRONCHUS OR LUNG Qualifiers: Laterality: right Lung location: upper lobe of lung Qualified Code(s): C34.11 - Malignant neoplasm of upper lobe, right bronchus or lung (3) COPD (chronic obstructive pulmonary disease) Assessment/Plan: Cont duoneb Nicotine patch Code(s): J44.9 - CHRONIC OBSTRUCTIVE PULMONARY DISEASE, UNSPECIFIED (4) Anemia Assessment/Plan: Due to malignancy Monitor H/H Code(s): D64.9 - ANEMIA, UNSPECIFIED (5) Hypothyroidism Assessment/Plan: Cont levothyroxine Code(s): E03.9 - HYPOTHYROIDISM, UNSPECIFIED (6) Pneumonia Assessment/Plan: Pt is now off antibxs Cont nebulizer CT scan chest showed RUL mass increased and ?adrenal mumtaz/pericardial effusion Code(s): J18.9 - PNEUMONIA, UNSPECIFIED ORGANISM Qualifiers: Pneumonia type: due to unspecified organism Laterality: right Lung location: upper lobe of lung Qualified Code(s): J18.9 - Pneumonia, unspecified organism
[2016-10-29] MEDS: oxyCODONE HCL 5 MG TABLET PO PRN ×4 (04:26→21:46)
[2016-10-29] MEDS: LEVOTHYROXINE NA 25 MCG TABLET (FP) PO SCH (06:13)
[2016-10-29 08:53] LABS: INR 1.09 (0.82-1.09)
[2016-10-29 08:56] LABS: ACTIVATED PTT 33.7 SECONDS (26.9-34.4)
--- NOTE | 2016-10-29 10:25 | PN ---
Progress Note (short form) - Note Progress Note: Reports feeling about the same. ECHO / events from yesterday noted. For pericardial drain by IR today. Minimal dry cough. Intake & Output 10/26/16 10/27/16 10/28/16 10/29/16 23:59 23:59 23:59 23:59 Intake Total 800 340 360 Balance 800 340 360 Last Vital Signs Temp Pulse Resp BP Pulse Ox 97.8 F 73 20 103/67 91 L 10/29/16 09:36 10/29/16 09:36 10/29/16 09:36 10/29/16 09:36 10/29/16 09:00 Active Medications Acetaminophen (Tylenol -) 650 mg PO Q6H PRN PRN Reason: FEVER OR PAIN Last Admin: 10/27/16 11:32 Dose: 650 mg Albuterol/Ipratropium (Duoneb -) 1 amp NEB Q6H PRN PRN Reason: SHORTNESS OF BREATH Last Admin: 10/24/16 21:55 Dose: 1 amp Folic Acid (Folic Acid -) 1 mg PO DAILY [facility] Last Admin: 10/28/16 09:30 Dose: 1 mg Levothyroxine Sodium (Synthroid -) 25 mcg PO ACBK [facility] Last Admin: 10/29/16 06:13 Dose: 25 mcg Nicotine (Nicoderm Patch -) 14 mg TD DAILY [facility] Last Admin: 10/28/16 09:30 Dose: 14 mg Oxycodone HCl (Roxicodone -) 5 mg PO Q4H PRN PRN Reason: PAIN Last Admin: 10/29/16 04:26 Dose: 5 mg Constitutional: Yes: No Distress Neck: Yes: Supple Cardiovascular: Yes: WNL, Regular Rate and Rhythm Respiratory: Yes: Few scattered rhonchi Labs: Laboratory Results - last 24 hr 10/29/16 08:00 INR 1.09 PTT (Actin FS) 33.7 Problem List - Problems (1) Pneumonia Assessment/Plan: Code(s): J18.9 - PNEUMONIA, UNSPECIFIED ORGANISM Qualifiers: Pneumonia type: due to unspecified organism Laterality: right Lung location: upper lobe of lung Qualified Code(s): J18.9 - Pneumonia, unspecified organism (2) Lung cancer Assessment/Plan: Code(s): C34.90 - MALIGNANT NEOPLASM OF UNSP PART OF UNSP BRONCHUS OR LUNG (3) COPD (chronic obstructive pulmonary disease) Code(s): J44.9 - CHRONIC OBSTRUCTIVE PULMONARY DISEASE, UNSPECIFIED (4) Anemia Code(s): D64.9 - ANEMIA, UNSPECIFIED (5) Hypothyroidism Code(s): E03.9 - HYPOTHYROIDISM, UNSPECIFIED PLAN: For IR guided pericardial drain Monitor off ABX O2 as needed Chemotherapy per Oncology No smoking Dr Figueroa
[2016-10-29] MEDS: FOLIC ACID 1 MG TABLET (FP) PO SCH (11:10)
[2016-10-29] MEDS ORDERED: INSULIN (NOVOLOG) ASPART 100 UNITS/ML 10ML VIAL ONE (12:18)
[2016-10-29] MEDS: NICOTINE 14 MG/24 HOURS TOPICAL PATCH TD SCH (12:28)
--- NOTE | 2016-10-29 14:18 | CONSULT ---
Consult Consult Specialty:: Cardiology Referred by:: Lee Figueroa MD - Pulmonary Reason for Consultation:: Pericardial effusion - History of Present Illness Chief Complaint: Dyspnea History of Present Illness: A 50-year-old male with history of NSCLC (stage IIIB), tobacco abuse, hypothyroidism who presented to [facility] with complaints of worsening SOB, blood- tinged sputum production and chest tightness. His workup including chest x-ray and initial CT chest showed RUL lung mass, RLL infiltrate, multiple lymphadenopathy with possible adrenal metastatic lesions and small pericardial effusion. Subsequently he obtained echocardiogram which showed moderate pericardial effusion with full expansion of RA and RV. He reports that his symptoms have improved since the admission. He denies fever, chills, dizziness , headache, and weight loss. 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 No: O2 Dependent Gastrointestinal: No: Ascites Hepatobiliary: No: Cirrhosis Renal/: No: Hemodialysis Infectious Disease: No: AIDS Musculoskeletal: No: Bursitis Rheumatology: No: Fibromyalgia Endocrine: Yes: Hypothyroidism. No: Diabetes Mellitus - Past Surgical History Additional Surgical History: Bronchoscopy and biopsy at [facility] ( Dr. [place]), right mediport placement. - Alcohol/Substance Use Hx Alcohol Use: Yes (daily) - Smoking History Smoking history: Current every day smoker Have you smoked in the past 12 months: Yes Aproximately how many cigarettes per day: 12 If you are a former smoker, when did you quit?: 1 wk ago - Social History History of Recent Travel: No Home Medications - Allergies Allergies/Adverse Reactions: Allergies Allergy/AdvReac Type Severity Reaction Status Date / Time No Known Allergies Allergy Verified 10/22/16 15:32 - Home Medications Home Medications: Ambulatory Orders Levothyroxine [Synthroid -] 25 mcg PO DAILY 11/29/12 Acetaminophen [Tylenol] 325 mg PO QID PRN 10/22/16 Guaifenesin [Mucinex -] 600 mg PO BID 10/22/16 Acetaminophen [Tylenol .Regular Strength -] 650 mg PO Q6H PRN #90 tablet Folic Acid - 1 mg PO DAILY #30 tablet 10/28/16 Nicotine Patch [Nicoderm Patch -] 14 mg TD DAILY #30 patch 10/28/16 Review of Systems - Review of Systems Cardiovascular: reports: Chest Pain, Shortness of Breath Vital Signs: Vital Signs Temperature 97.8 F 10/29/16 09:36 Pulse Rate 73 10/29/16 09:36 Respiratory Rate 20 10/29/16 09:36 Blood Pressure 103/67 10/29/16 09:36 O2 Sat by Pulse Oximetry (%) 91 L 10/29/16 09:00 Constitutional: Yes: No Distress, Calm, Thin Neck: Yes: Supple Respiratory: Yes: Regular, Diminished Gastrointestinal: Yes: Normal Bowel Sounds, Soft Cardiovascular: Yes: Regular Rate and Rhythm JVD: No Carotid Bruit: No Heart Sounds: Yes: S1, S2 Edema: No - Other Data Labs, Other Data: CBC, BMP 10/28/16 06:00 10/28/16 06:00 INR, PTT INR 1.09 (0.82-1.09) 10/29/16 08:00 NSR no electrical alternans Imaging - Results Cat Scan: Report Reviewed (RUL mass, RLL infiltrate, small pericardial effusion) Problem List - Problems (1) COPD (chronic obstructive pulmonary disease) Code(s): J44.9 - CHRONIC OBSTRUCTIVE PULMONARY DISEASE, UNSPECIFIED Qualifiers : COPD type: unspecified COPD Qualified Code(s): J44.9 - Chronic obstructive pulmonary disease, unspecified (2) Hypothyroidism Code(s): E03.9 - HYPOTHYROIDISM, UNSPECIFIED Qualifiers: Hypothyroidism type: unspecified Qualified Code(s): E03.9 - Hypothyroidism, unspecified (3) Lung cancer Code(s): C34.90 - MALIGNANT NEOPLASM OF UNSP PART OF UNSP BRONCHUS OR LUNG Qualifiers: Laterality: right Lung location: upper lobe of lung Qualified Code(s): C34.11 - Malignant neoplasm of upper lobe, right bronchus or lung (4) Pericardial effusion Code(s): I31.3 - PERICARDIAL EFFUSION (NONINFLAMMATORY) (5) Pneumonia Code(s): J18.9 - PNEUMONIA, UNSPECIFIED ORGANISM Qualifiers: Pneumonia type: due to unspecified organism Laterality: right Lung location: lower lobe of lung Qualified Code(s): J18.9 - Pneumonia, unspecified organism Assessment/Plan 1. Pericardial effusion not in tamponade, suspect malignant 2. RUL Stage IIIB NSCLC, RLL infiltrate 3. COPD 4. Hypothyroidism P:1. Thoracic surgery had recommended subxiphoid window and pericardial drain placement but preferred pericardiocentesis which I don't believe would be of benefit due to likely reaccumulation, would repeat echo in 1 month to assess pericardial effusion 2. Patient to start chemotherapy per oncology, observe off abx 3. Thank you for consultative opportunity
--- NOTE | 2016-10-29 16:48 | PN ---
Progress Note (short form) - Note Progress Note: Patient seen and examined c/o neck pain. no other symptoms Last Vital Signs Temp Pulse Resp BP Pulse Ox 97.8 F 71 20 113/74 91 L 10/29/16 14:58 10/29/16 14:58 10/29/16 14:58 10/29/16 14:58 10/29/16 09:00 Cor: RSR, No murmurs, No gallops Lungs: decreased rt. lung sounds Abd: Soft, Normal bowel sounds, No organomegaly Ext:No significant edema Skin: No rashes, Integument intact Current Medications Acetaminophen (Tylenol -) 650 mg PO Q6H PRN PRN Reason: FEVER OR PAIN Last Admin: 10/27/16 11:32 Dose: 650 mg Albuterol/Ipratropium (Duoneb -) 1 amp NEB Q6H PRN PRN Reason: SHORTNESS OF BREATH Last Admin: 10/24/16 21:55 Dose: 1 amp Folic Acid (Folic Acid -) 1 mg PO DAILY [facility] Last Admin: 10/29/16 11:10 Dose: 1 mg Levothyroxine Sodium (Synthroid -) 25 mcg PO ACBK [facility] Last Admin: 10/29/16 06:13 Dose: 25 mcg Nicotine (Nicoderm Patch -) 14 mg TD DAILY [facility] Last Admin: 10/29/16 12:28 Dose: Not Given Oxycodone HCl (Roxicodone -) 5 mg PO Q4H PRN PRN Reason: PAIN Last Admin: 10/29/16 16:12 Dose: 5 mg A/P 50 y/o patient with stage IIIB nonsmall cell, poorly diff. adeno ca with 9cm RUL mass, N3 nodes on PET-scan MRI brain neg. Patient coming in with chest pressure/headaches/orthopnea/mild hemoptysis c/o neck and upperback/chest pain CT chest shows no e/o SVC syndrome Echo cardiogram shows pericardial effusion -- no evidence of tamponade physiology Given imaging and clinical findings no evidence of tamponade discussed with cardiology/CT surgery Plan to discharge patient home ---needs folic acid oxycodone prn levaquin for post obstructive pneumonia f/u in the office on Wednesday for chemotherapy--carbo/alimta
--- NOTE | 2016-10-29 16:57 | PN ---
Progress Note (short form) - Note Progress Note: seen and examined. no major event or complaints. denies f/c, cough, hemoptysis , sputum production. afeb. vss. rrr. decreased breath sound in rt lung. +bs, soft, nt, nd. no c/c /e. a&o x3. CBC, BMP 10/28/16 06:00 10/28/16 06:00 Initial Vital Signs Temp Pulse Resp BP Pulse Ox 97.8 F 89 18 111/75 93 L 10/22/16 15:29 10/22/16 15:29 10/22/16 15:29 10/22/16 15:29 10/22/16 15:29 Vital Signs Period Temp Pulse Resp BP Sys/Brandon Pulse Ox Last 24 Hr 97.7 F-98.2 F 68-76 20-20 103-114/67-74 91-92 a/p 50 yo, m, h/o lung ca (stage iiib), suspicious for malig pericard eff ( stage iv). repeat ct chest showed small amount of pericard eff. remains stable clinically with no s/s cardiopulmonary compromise at the present time. 1. cont supp care and abx 2. repeat echocard as outpt 3. chemo/rad per onc service 4. d/c planning per primary team 5. pls call thoracic surgery if need further surgical management Problem List - Problems (1) Pericardial effusion Code(s): I31.3 - PERICARDIAL EFFUSION (NONINFLAMMATORY)
--- NOTE | 2016-10-29 20:33 | PN ---
Progress Note, Physician History of Present Illness: No new complaints - Current Medication List Current Medications: Active Medications Acetaminophen (Tylenol -) 650 mg PO Q6H PRN PRN Reason: FEVER OR PAIN Last Admin: 10/27/16 11:32 Dose: 650 mg Albuterol/Ipratropium (Duoneb -) 1 amp NEB Q6H PRN PRN Reason: SHORTNESS OF BREATH Last Admin: 10/24/16 21:55 Dose: 1 amp Folic Acid (Folic Acid -) 1 mg PO DAILY [facility] Last Admin: 10/29/16 11:10 Dose: 1 mg Levothyroxine Sodium (Synthroid -) 25 mcg PO ACBK [facility] Last Admin: 10/29/16 06:13 Dose: 25 mcg Nicotine (Nicoderm Patch -) 14 mg TD DAILY [facility] Last Admin: 10/29/16 12:28 Dose: Not Given Oxycodone HCl (Roxicodone -) 5 mg PO Q4H PRN PRN Reason: PAIN Last Admin: 10/29/16 16:12 Dose: 5 mg - Objective Vital Signs: Vital Signs Temperature 97.4 F L 10/29/16 17:19 Pulse Rate 70 10/29/16 17:19 Respiratory Rate 18 10/29/16 17:19 Blood Pressure 132/84 10/29/16 17:19 O2 Sat by Pulse Oximetry (%) 91 L 10/29/16 09:00 Constitutional: Yes: No Distress Neck: Yes: Supple Cardiovascular: Yes: WNL, Regular Rate and Rhythm Gastrointestinal: Yes: Other (Decreased bs on RT) Labs: CBC, BMP 10/28/16 06:00 10/28/16 06:00 INR, PTT INR 1.09 (0.82-1.09) 10/29/16 08:00 Problem List - Problems (1) Pericardial effusion Assessment/Plan: After d/w onco/cardio no tamponade on echo Pt has refused pericardial window and will give chemotx/RT first Then repeat echo and reaccess need for pericardial window Pericardial effusion mostly likely malignant DC planning for am Code(s): I31.3 - PERICARDIAL EFFUSION (NONINFLAMMATORY) (2) Lung cancer Code(s): C34.90 - MALIGNANT NEOPLASM OF UNSP PART OF UNSP BRONCHUS OR LUNG Qualifiers: Laterality: right Lung location: upper lobe of lung Qualified Code(s): C34.11 - Malignant neoplasm of upper lobe, right bronchus or lung (3) COPD (chronic obstructive pulmonary disease) Assessment/Plan: Cont duoneb Nicotine patch Code(s): J44.9 - CHRONIC OBSTRUCTIVE PULMONARY DISEASE, UNSPECIFIED Qualifiers : COPD type: unspecified COPD Qualified Code(s): J44.9 - Chronic obstructive pulmonary disease, unspecified (4) Anemia Code(s): D64.9 - ANEMIA, UNSPECIFIED (5) Hypothyroidism Code(s): E03.9 - HYPOTHYROIDISM, UNSPECIFIED Qualifiers: Hypothyroidism type: unspecified Qualified Code(s): E03.9 - Hypothyroidism, unspecified (6) Pneumonia Code(s): J18.9 - PNEUMONIA, UNSPECIFIED ORGANISM Qualifiers: Pneumonia type: due to unspecified organism Laterality: right Lung location: lower lobe of lung Qualified Code(s): J18.9 - Pneumonia, unspecified organism
[2016-10-30] MEDS: oxyCODONE HCL 5 MG TABLET PO PRN ×3 (02:38→09:28)
[2016-10-30] MEDS: LEVOTHYROXINE NA 25 MCG TABLET (FP) PO SCH (06:05)
[2016-10-30] MEDS: FOLIC ACID 1 MG TABLET (FP) PO SCH (09:28)
[2016-10-30 10:02] VITALS: BP 109/68; PULSE 68; TEMP 98.6
== END 2016-10-30 09:40 | disposition home or self-care (01) | DRG 139 ==
LOC: JER 15:25 → JERBED 23:07 → J8W 10-23 02:51 → J7W 10-25 18:59
PROVIDERS: ADMIT Internal Medicine; ATTEND Internal Medicine
DX: J18.9 Pneumonia, unspecified organism (principal); C34.11 Malignant neoplasm of upper lobe, right bronchus or lung; E03.9 Hypothyroidism, unspecified; F17.210 Nicotine dependence, cigarettes, uncomplicated; D47.3 Essential (hemorrhagic) thrombocythemia; D64.9 Anemia, unspecified; J44.9 Chronic obstructive pulmonary disease, unspecified; R51 Headache; M54.2 Cervicalgia; C79.71 Secondary malignant neoplasm of right adrenal gland; I31.3 Pericardial effusion (noninflammatory); R04.2 Hemoptysis
CPT/HCPCS: 36415; 71020-TC; 71250-TC; 71260-TC; 72050-TC; 72125-TC; 80053; 83735; 84443; 85025; 85610; 85730; 87040; 87070; 87205; 93005; 93010; 93306-TC; 94640; 99284-25

== ENCOUNTER 2016-11-09 18:10 | Inpatient (IN) | payer OTHER ==
[2016-11-09 18:18] VITALS: BMI 20.3
--- NOTE | 2016-11-09 18:36 | PDOC ---
History of Present Illness - General Chief Complaint: Chest Pain Stated Complaint: s/p chemo CHEST PAIN/SOB Time Seen by Provider: 11/09/16 18:30 History Source: Patient Exam Limitations: No Limitations - History of Present Illness Initial Comments: 11/09/16 18:51 Complaint: Chest pain Patient 50-year-old male who was diagnosed with lung adenocarcinoma in July. She was recently treated in the hospital for pneumonia which has cleared up, he states he got his chemotherapy last Wednesday, one week ago and got a shot "increases white cells" and started developing right-sided chest pain on Wednesday with decreased appetite although able to eat small amounts of food, and has no problems drinking. No fever. Patient states he's been taking the oxycodone for the pain, it seemed to help for 3 hours today he took it 1:30 but now states the pain is an 8. Also complaining of some shortness of breath and also pain with coughing, breathing and movement. No leg swelling or pain. GENERAL/CONSTITUTIONAL: No fever, weakness. dizziness HEAD, EYES, EARS, NOSE AND THROAT: No change in vision. No ear pain or discharge. No sore throat. CARDIOVASCULAR: +chest pain RESPIRATORY: +shortness of breath, no: cough GASTROINTESTINAL: No pain, nausea, vomiting, diarrhea or constipation GENITOURINARY: No dysuria MUSCULOSKELETAL: No neck or back pain SKIN: No rash NEUROLOGIC: No headache, vertigo, loss of consciousness, or loss of sensation. GENERAL: The patient is awake, alert, and fully oriented, in no acute distress. HEAD: Normal with no signs of trauma. EYES: Pupils equal, round and reactive to light, sclera anicteric, conjunctiva clear. ENT: pharynx: no erythema, no exudate, uvula midline NECK: supple CHEST: Decreased right, left clear, nontender, rr ABD: soft, nontender EXTREMITIES: Normal range of motion, no edema. NEUROLOGICAL: Normal speech, normal gait. SKIN: Warm, Dry Past History - Past Medical History Allergies/Adverse Reactions: Allergies Allergy/AdvReac Type Severity Reaction Status Date / Time No Known Allergies Allergy Verified 11/09/16 18:13 Home Medications: Ambulatory Orders Levothyroxine [Synthroid -] 25 mcg PO DAILY 11/29/12 Acetaminophen [Tylenol] 325 mg PO QID PRN 10/22/16 Guaifenesin [Mucinex -] 600 mg PO BID 10/22/16 Acetaminophen [Tylenol .Regular Strength -] 650 mg PO Q6H PRN #90 tablet Folic Acid - 1 mg PO DAILY #30 tablet 10/28/16 Nicotine Patch [Nicoderm Patch -] 14 mg TD DAILY #30 patch 10/28/16 Cancer: Yes (LUNG ADENOCARCINOMA,Starts Chemo ) Thyroid Disease: Yes - Surgical History Lung Surgery: (lung biopsy jul 29) - Psycho/Social/Smoking Cessation Hx Anxiety: No Suicidal Ideation: No Smoking Status: Yes Smoking History: Current every day smoker Have you smoked in the past 12 months: Yes Number of Cigarettes Smoked Daily: 12 If you are a former smoker, when did you quit?: 1 wk ago Information on smoking cessation initiated: Yes 'Breaking Loose' booklet given: 11/09/16 Hx Alcohol Use: No Drug/Substance Use Hx: No Substance Use Type: None *Physical Exam - Vital Signs Last Vital Signs Temp Pulse Resp BP Pulse Ox 98.6 F 92 H 18 126/65 94 L 11/09/16 18:15 11/09/16 18:15 11/09/16 18:15 11/09/16 18:15 11/09/16 18:15 Heart Score/ECG Review - ECG Intrepretation Rhythm: Regular Rhythm Comment:: 11/09/16 18:58 QTC 523 nonspecific T-wave abnormality ED Treatment Course - LABORATORY CBC & Chemistry Diagram: 11/09/16 18:45 11/09/16 18:45 - RADIOLOGY Radiology Studies Ordered: 11/09/16 20:07 Chest x-ray with opacity to right lung, worse than prior Medical Decision Making - Medical Decision Making 11/09/16 20:[address] Golden after chest x-ray, will get CTA given pain and radiation to shoulder although there is opacity of the right long, slightly hypoxic and tachycardic, and then patient will be admitted 8:09 PM call placed to Dr. Reyes 11/09/16 20:[address] Reyes, discussed case, results, EKG, QT prolongation, chest x -ray, labs and discussion with Dr. Golden. CTA pending, she will follow. Patient to be admitted to [facility] *DC/Admit/Observation/Transfer Diagnosis at time of Disposition: Shortness of breath, Pericardial effusion Lung cancer Qualifiers: Laterality: right Lung location: unspecified part of lung Qualified Code(s): C34.91 - Malignant neoplasm of unspecified part of right bronchus or lung - Discharge Dispostion Admit: Yes - Referrals Referrals: Estrada Lord MD [Primary Care Provider] -
[2016-11-09] MEDS ORDERED: morphine CARPU-JECT 4 MG/1 ML DISP.SYRIN ONE (18:53)
[2016-11-09 18:55] LABS: MCHC 30.8 g/dl (32.0-35.9); MEAN CELL VOLUME 60.3 fl (80-96); MEAN PLT VOLUME 6.9 fl (7.5-11.1); PLATELET COUNT 216 K/MM3 (134-434); WHITE BLOOD COUNT 2.2 K/mm3 (4.0-10.0)
[2016-11-09] MEDS ORDERED: morphine CARPU-JECT 4 MG/1 ML DISP.SYRIN IVPUSH ONE (18:56)
[2016-11-09 18:57] LABS: MCH 18.6 pg (25.7-33.7)
[2016-11-09] MEDS ORDERED: SODIUM CHLORIDE 1,000 ML IV STA (18:57)
[2016-11-09 19:06] LABS: INR 1.23 (0.82-1.09); PROTHROMBIN TIME (PATIENT) 13.6 SEC (9.98-11.88)
[2016-11-09 19:09] LABS: ACTIVATED PTT 30.2 SECONDS (26.9-34.4)
[2016-11-09 19:50] LABS: ALBUMIN 2.7 g/dl (3.4-5.0); ANION GAP 10 (8-16); CALCIUM 8.1 mg/dL (8.5-10.1); CO2 31 mmol/L (21-32); GLUCOSE,RANDOM 100 mg/dL (74-106)
[2016-11-09 19:56] LABS: ALK PHOS 104 U/L (45-117); BILIRUBIN,TOTAL 0.6 mg/dL (0.2-1.0); SGOT/AST 18 U/L (15-37); SGPT/ALT 17 U/L (12-78); TOT PROT 6.6 g/dl (6.4-8.2); TROPONIN I < 0.02 ng/ml (0.00-0.05)
[2016-11-09 19:58] LABS: DOHLE BODIES 1+; HYPOCHROMIA 3+; PLATELET COMMENT2 FEW GIANT PLTS; PLATELET ESTIMATE ADEQUATE (NORMAL); POIKILOCYTOSIS 2+
[2016-11-09] MEDS ORDERED: morphine CARPU-JECT 2 MG/1 ML DISP.SYRIN IVPUSH ONE (21:19)
[2016-11-09] MEDS ORDERED: morphine CARPU-JECT 2 MG/1 ML DISP.SYRIN ONE (21:34)
[2016-11-10] MEDS ORDERED: morphine CARPU-JECT 4 MG/1 ML DISP.SYRIN IVPUSH ONE (00:59)
[2016-11-10] MEDS ORDERED: morphine CARPU-JECT 4 MG/1 ML DISP.SYRIN ONE ×3 (01:10→10:22)
[2016-11-10] MEDS: morphine CARPU-JECT 4 MG/1 ML DISP.SYRIN IVPUSH PRN ×3 (06:07→16:23)
[2016-11-10] MEDS ORDERED: LEVOTHYROXINE NA 25 MCG TABLET (FP) PO SCH (07:00)
[2016-11-10 07:51] LABS: MCHC 32.1 g/dl (32.0-35.9); MEAN PLT VOLUME 8.4 fl (7.5-11.1); PLATELET COUNT 176 K/MM3 (134-434); RDW 14.7 % (11.9-15.9); WHITE BLOOD COUNT 2.1 K/mm3 (4.0-10.0)
[2016-11-10 08:09] LABS: ALBUMIN 2.5 g/dl (3.4-5.0); ALK PHOS 88 U/L (45-117); ANION GAP 5 (8-16); BILIRUBIN,TOTAL 0.5 mg/dL (0.2-1.0); CALCIUM 7.9 mg/dL (8.5-10.1); CO2 31 mmol/L (21-32); CREATININE 0.9 mg/dL (0.7-1.3); GLUCOSE,RANDOM 93 mg/dL (74-106); SGOT/AST 18 U/L (15-37); SGPT/ALT 15 U/L (12-78); TOT PROT 5.7 g/dl (6.4-8.2)
[2016-11-10] MEDS ORDERED: VANCOMYCIN 1 GRAM (PRE-DOCKED) 1,000 MG/250 ML BAG IVPB ONE (08:17)
[2016-11-10] MEDS ORDERED: PIPERACILLIN/TAZOB 3.375 GM/50 ML PRE-DOCKED IV ONE (08:19)
[2016-11-10 08:20] LABS: MCH 19.3 pg (25.7-33.7)
[2016-11-10] MEDS ORDERED: VANCOMYCIN 1 GRAM (PRE-DOCKED) 250 ML IVPB ONE (08:38)
[2016-11-10] MEDS ORDERED: LEVOTHYROXINE NA 25 MCG TABLET (FP) ONE (08:38)
[2016-11-10] MEDS ORDERED: PIPERACILLIN/TAZOB 3.375 GM 50 ML IVPB ONE (08:39)
[2016-11-10] MEDS ORDERED: HEPARIN NA (PORCINE) 5,000 UNITS/ML 1ML VIAL ONE (10:04)
[2016-11-10] MEDS: HEPARIN NA (PORCINE) 5,000 UNITS/ML 1ML VIAL SQ SCH ×2 (10:20→22:06)
[2016-11-10] MEDS: FOLIC ACID 1 MG TABLET (FP) PO SCH (10:20)
[2016-11-10] MEDS: guaiFENesin 600 MG TABLET.ER (FP) PO SCH ×2 (10:20→22:06)
[2016-11-10] MEDS: NICOTINE 14 MG/24 HOURS TOPICAL PATCH TD SCH (10:20)
--- NOTE | 2016-11-10 11:08 | PN ---
Progress Note (short form) - Note Progress Note: ID consult dictated imp/reccd- 50 year old man with poorly differentiated adenoca of the lung s/p chemo 11/02 developed worsening right sided chest pain over the weekend, not responding to po pain meds chronic sob, chronic intermittent hemoptysis cxray now with near complete opacification of the right lung chest ct with large RUL mass, multiple enlarged lymph nodes, interval development RLL consolidation recently hospitalized 10/22 to 10/31 with postobstructive pneumonia- treated with rocephin/zithromax and discharged on levaqun he is neutropenic with ANC of 726 no fevers I suspect this is all secondary to atelectasis from tumor but cannot rule out pneumonia just discharged 10/31 from hospital just completed po levaquin yesterday continue vanco/zosyn cultures/urinary antigens
--- NOTE | 2016-11-10 12:12 | CONSULT ---
Consult Consult Specialty:: PULMONARY Referred by:: Dr. Reyes Reason for Consultation:: pneumonia, lung ca - History of Present Illness Chief Complaint: chest pain History of Present Illness: 50yo male with h/o NSCLC (adenoca) diagnosed in July, pericardial effusion, recent admission for pneumonia who just had recent chemotherapy 1 week ago who presents with worsening right sided chest pain x 5 days. Does report some shortness of breath but minimal cough and wheezing. No fevers, chills or sweats. No leg pain or swelling. CXR showing complete opacification of right hemithorax. Recent imaging on last admission only showing atelecatsis of RUL. - History Source History Provided By: Patient, Medical Record Limitations to Obtaining History: No Limitations - Past Medical History Pulmonary: Yes: COPD, Other (LUNG CANCER). No: O2 Dependent Endocrine: Yes: Hypothyroidism. No: Diabetes Mellitus - Alcohol/Substance Use Hx Alcohol Use: No - Smoking History Smoking history: Current every day smoker Have you smoked in the past 12 months: Yes Aproximately how many cigarettes per day: 12 If you are a former smoker, when did you quit?: 1 wk ago - Social History History of Recent Travel: No Home Medications - Allergies Allergies/Adverse Reactions: Allergies Allergy/AdvReac Type Severity Reaction Status Date / Time No Known Allergies Allergy Verified 11/09/16 18:13 - Home Medications Home Medications: Ambulatory Orders Levothyroxine [Synthroid -] 25 mcg PO DAILY 11/29/12 Acetaminophen [Tylenol] 325 mg PO QID PRN 10/22/16 Guaifenesin [Mucinex -] 600 mg PO BID 10/22/16 Acetaminophen [Tylenol .Regular Strength -] 650 mg PO Q6H PRN #90 tablet Folic Acid - 1 mg PO DAILY #30 tablet 10/28/16 Nicotine Patch [Nicoderm Patch -] 14 mg TD DAILY #30 patch 10/28/16 Family Disease History - Family Disease History Other Family History: non-contributory Review of Systems - Review of Systems Constitutional: reports: Weakness. denies: Chills, Fever Eyes: denies: Recent Change in Vision HENT: denies: Nasal Congestion, Throat Pain Neck: denies: Stiffness, Tenderness Cardiovascular: reports: Chest Pain, Shortness of Breath. denies: Edema, Palpitations Respiratory: reports: Cough, Hemoptysis, SOB on Exertion. denies: Wheezing Gastrointestinal: denies: Abdominal Pain, Nausea, Vomiting Genitourinary: denies: Dysuria, Hematuria Neurological: denies: Dizziness, Headache Physical Exam Vital Sings: Vital Signs Temperature 97.7 F 11/10/16 09:30 Pulse Rate 79 11/10/16 09:30 Respiratory Rate 16 11/10/16 09:30 Blood Pressure 124/73 11/10/16 09:30 O2 Sat by Pulse Oximetry (%) 98 11/10/16 09:30 Constitutional: Yes: No Distress, Calm Eyes: Yes: Conjunctiva Clear, EOM Intact HENT: Yes: Atraumatic, Normocephalic Neck: Yes: Supple, Trachea Midline Cardiovascular: Yes: Regular Rate and Rhythm Respiratory: Yes: Diminished (decreased breath sounds on right) ...Clubbing: Yes Gastrointestinal: Yes: Normal Bowel Sounds, Soft. No: Tenderness Edema: No Labs: CBC, BMP 11/10/16 07:00 11/10/16 07:00 Imaging - Results Chest X-ray: Report Reviewed, Image Reviewed (right opacification) Cat Scan: Report Reviewed, Image Reviewed (right main stem occlusion with atelectasis, infiltrates) Problem List - Problems (1) Primary lung adenocarcinoma Code(s): C34.90 - MALIGNANT NEOPLASM OF UNSP PART OF UNSP BRONCHUS OR LUNG (2) Pneumonia Code(s): J18.9 - PNEUMONIA, UNSPECIFIED ORGANISM Qualifiers: Pneumonia type: due to unspecified organism Laterality: right Lung location: lower lobe of lung Qualified Code(s): J18.9 - Pneumonia, unspecified organism (3) Pericardial effusion Code(s): I31.3 - PERICARDIAL EFFUSION (NONINFLAMMATORY) (4) COPD (chronic obstructive pulmonary disease) Code(s): J44.9 - CHRONIC OBSTRUCTIVE PULMONARY DISEASE, UNSPECIFIED Qualifiers : COPD type: unspecified COPD Qualified Code(s): J44.9 - Chronic obstructive pulmonary disease, unspecified (5) Atelectasis Code(s): J98.11 - ATELECTASIS Assessment/Plan Chest pain likely attributable to Post obstructive pneumonia from progressive tumor enlargement vs mucous plugging NSCLC (Adeno) COPD Atelectasis Recent Chemo - antibiotics per ID - f/u cultures - pain control - chest PT - incentive spirometry - inhaled bronchodilators - can consider inspection bronchoscopy to evaluate whether obstruction due to tumor vs mucous plugging - DVT prophylaxis - will follow with you Thank you for this consult Sree Davis MD
--- NOTE | 2016-11-10 14:44 | CONS ---
DATE OF CONSULTATION: 11/10/2016 REQUESTING PHYSICIAN: HISTORY OF PRESENT ILLNESS: This is a 50-year-old man with a history of poorly differentiated adenocarcinoma of the lung. He was in the hospital from the to the 31 of October with postobstructive pneumonia. He was treated with ceftriaxone and Zithromax. During that admission, he was discharged on oral Levaquin. On November 02, he underwent his first cycle of chemotherapy. After chemotherapy he had no fevers, but he developed worsening right-sided chest pain. He has some chronic shortness of breath. There have been no fevers or chills. He came to the emergency room with these complaints. He showed complete opacification of the right hemithorax. I am asked to see him for possible pneumonia. He denies any nausea or vomiting. He has a poor appetite. He lives alone. He finished his Levaquin yesterday. PAST MEDICAL HISTORY: Notable for COPD, lung cancer, and hypothyroidism. MEDICATIONS: His medications as an outpatient include Synthroid, Tylenol, Mucinex, folic acid, and NicoDerm patch. SOCIAL HISTORY: He recently stopped smoking, and he lives alone. He was born and raised in [place]. 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 There is no history of alcohol or drug use. FAMILY HISTORY: Negative for cancer. REVIEW OF SYSTEMS: Notable for weight loss and poor appetite. He reports receiving Neulasta on Wednesday after chemotherapy on Wednesday. There is no nausea, vomiting, diarrhea, or dysuria. PHYSICAL EXAMINATION: Vital signs: His temperature is 97.2, pulse is 74, blood pressure 107/61, respiratory rate 18. HEENT: He is normocephalic. His eyes are anicteric. He has dry oral mucosa. There is no thrush. Neck: His neck is supple. Lungs: He has a port in his right chest, and there is no surrounding tenderness. He has diminished breath sounds in his right lung. Heart: Regular rate and rhythm. Abdomen: Soft, nontender. Extremities: Without edema. LABORATORIES: His white count is 2.1, hemoglobin 9.6, ANC is less then 1000. BUN 10, creatinine 0.9, sodium 125. Chest x-ray reveals right opacification of the lung. CT scan of the chest reveals large right upper lobe mass, multiple enlarged lymph nodes, interval development of right lower lobe consolidation. SUMMARY: This is a young 50-year-old man with lung cancer status post recent chemotherapy with neutropenia with chest pain most likely secondary to postobstructive pneumonia versus atelectasis from tumor enlargement. We have started him on vancomycin and Zosyn. Cultures have been ordered. We will continue at this time. I suspect this is all secondary to atelectasis from his tumor, but cannot rule out pneumonia. I have ordered cultures as well as urinary antigens. LELA PEARCE M.D. [id number]
--- NOTE | 2016-11-10 16:23 | EKG ---
Test Reason : Blood Pressure : / mmHG Vent. Rate : 080 BPM Atrial Rate : 080 BPM P-R Int : 140 ms QRS Dur : 092 ms QT Int : 454 ms P-R-T Axes : 054 050 059 degrees QTc Int : 523 ms NORMAL SINUS RHYTHM NONSPECIFIC T WAVE ABNORMALITY PROLONGED QT ABNORMAL ECG WHEN COMPARED WITH ECG OF 22-OCT-2016 15:39, T WAVE VARIATION Confirmed by GUERA HAAS MD ([id number]) on 11/10/2016 4:22:39 PM Referred By: Confirmed By:GUERA HAAS MD
--- NOTE | 2016-11-10 16:28 | PN ---
Progress Note (short form) - Note Progress Note: Patient seen and examined Recently discharged from [facility] Adeoca of lung with extensive 12 cm tumor, atelectasis and near occlusion of right mainstem bronchus. Presents with sharp Right upper anterior chest pains and right posterior upper chest pains . Had been given Percocet , but pain was increasing in intensity . Received Alimta and carboplatinum followed by neulasta on 10/02 and 10/03 . Last Vital Signs Temp Pulse Resp BP Pulse Ox 97.9 F 87 20 95/68 99 11/10/16 13:27 11/10/16 13:27 11/10/16 13:42 11/10/16 13:27 11/10/16 13:42 HEENT: SILVINO, EOM Intact Oropharynx: No thrush, No mucositis,poor dentition Neck: Supple Cor: RSR, No murmurs, No gallops Lungs:decreased breath sounds Right lung anterior and posterior Abd: Soft, Normal bowel sounds, No organomegaly Ext:No significant edema, clubbing Skin:upper back, somewhat vessicular rash , excoriated to right of midline CBC, BMP 11/10/16 07:00 11/10/16 07:00 Current Medications Generic Name Dose Route Start Last Admin Trade Name Freq PRN Reason Stop Dose Admin Folic Acid 1 mg 11/10/16 10:00 11/10/16 10:20 Folic Acid - PO 1 mg DAILY MARC Administration Guaifenesin 600 mg 11/10/16 10:00 11/10/16 10:20 Mucinex - PO 600 mg BID MARC Administration Heparin Sodium (Porcine) 5,000 unit 11/10/16 10:00 11/10/16 10:20 Heparin - SQ 5,000 unit BID MARC Administration Levothyroxine Sodium 25 mcg 11/10/16 07:00 11/10/16 08:40 Synthroid - PO 25 mcg AM MARC Administration Morphine Sulfate 4 mg 11/10/16 03:40 11/10/16 16:23 Morphine Injection - IVPUSH 4 mg Q4H PRN Administration PAIN Nicotine 14 mg 11/10/16 10:00 11/10/16 10:20 Nicoderm Patch - TD 14 mg DAILY MARC Administration Piperacillin Sod/Tazobactam Sod 4.5 gm 11/10/16 18:00 Zosyn 4.5gm Ivpb (Pre-Docked) IVPB Q8H-IV MARC Vancomycin HCl 1,000 mg 11/10/16 22:00 Vancomycin (Pre-Docked) IVPB BID MARC Impression: Adenoca of Lung Atelectasis Anemia/ Thrombocytopenia ?? zoster Pain management Pericardial effusion Hyponatremia--?? SIADH Hypothyroidism Plan: Neupogen Valtrex Cardiology RT Continue antibiotics Serum and urine osmolality Ck TSH--dose 100 mcg Problem List - Problems (1) Atelectasis Code(s): J98.11 - ATELECTASIS (2) Lung cancer Assessment/Plan: adenocarcinoma - s/p Alimta, carboplatinum, Neulasta on 10/02 and 10/03. Code(s): C34.90 - MALIGNANT NEOPLASM OF UNSP PART OF UNSP BRONCHUS OR LUNG Qualifiers: Laterality: right Qualified Code(s): - (3) Pericardial effusion Assessment/Plan: To re-assess with cardiology- reportedly mild increase in size Code(s): I31.3 - PERICARDIAL EFFUSION (NONINFLAMMATORY) (4) Anemia Code(s): D64.9 - ANEMIA, UNSPECIFIED Qualifiers: Bone marrow failure anemia type: pancytopenia, antineoplastic chemotherapy- induced Qualified Code(s): D61.810 - Antineoplastic chemotherapy induced pancytopenia (5) Hypothyroidism Code(s): E03.9 - HYPOTHYROIDISM, UNSPECIFIED Qualifiers: Hypothyroidism type: unspecified Qualified Code(s): E03.9 - Hypothyroidism, unspecified (6) Pneumonia Assessment/Plan: ?? post obstructive pneumonitis- on Vancomycin and zosyn. Code(s): J18.9 - PNEUMONIA, UNSPECIFIED ORGANISM Qualifiers: Pneumonia type: due to unspecified organism Laterality: right Lung location: lower lobe of lung Qualified Code(s): J18.9 - Pneumonia, unspecified organism (7) Neutropenia Assessment/Plan: Secondary to chemotherapy. Will give neupogen. Code(s): D70.9 - NEUTROPENIA, UNSPECIFIED (8) Rash Assessment/Plan: Vessicular rash, excoriated in upper posterior portion right back. Does not cross midline ?? Zoster. Code(s): R21 - RASH AND OTHER NONSPECIFIC SKIN ERUPTION (9) Hyponatremia Assessment/Plan: ?? SIADH-- ck serum and urine osm. Code(s): E87.1 - HYPO-OSMOLALITY AND HYPONATREMIA
[2016-11-10] MEDS ORDERED: PT OWN MED DRAWER 7, Y5N ONE (17:03)
[2016-11-10] MEDS: TBO-FILGRASTIM 480 MCG/0.8 ML DISP.SYRIN SQ SCH (17:47)
[2016-11-10] MEDS: PIPERACILLIN/TAZOB 4.5 GM/100 ML PRE-DOCKED IVPB SCH (17:48)
--- NOTE | 2016-11-10 18:00 | HP ---
Admitting History and Physical - Admission Chief Complaint: Chest pain History of Present Illness: Pt is a unfortunate 50 y/o male w/ adenocarcinoma of lung who had recently been hospitalized in 10/09 for pleural effusion/pericardial effusion/tamponade. It was decided that pt was going to start chemotx first to see if pericardial effusion would decrease otherwise pt would need pericardial window. Pt now presented to the ER bc of 2-3 day h/o of RT sided chest pain w/ an intensity of 9/10. Pt has his baselline SOB/cough. Pt denies any fever/chills but cxr showed opacification rt lung. 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 No: O2 Dependent Heme/Onc: Yes: Anemia, Other (Adenocarcinoma lung cancer Pancytopenia) Endocrine: Yes: Hypothyroidism. No: Diabetes Mellitus - Smoking History Smoking history: Current every day smoker Have you smoked in the past 12 months: Yes Aproximately how many cigarettes per day: 12 If you are a former smoker, when did you quit?: 1 wk ago - Alcohol/Substance Use Hx Alcohol Use: No - Social History History of Recent Travel: No Home Medications - Allergies Allergies/Adverse Reactions: Allergies Allergy/AdvReac Type Severity Reaction Status Date / Time No Known Allergies Allergy Verified 11/09/16 18:13 - Home Medications Home Medications: Ambulatory Orders Levothyroxine [Synthroid -] 25 mcg PO DAILY 11/29/12 Acetaminophen [Tylenol] 325 mg PO QID PRN 10/22/16 Guaifenesin [Mucinex -] 600 mg PO BID 10/22/16 Acetaminophen [Tylenol .Regular Strength -] 650 mg PO Q6H PRN #90 tablet Folic Acid - 1 mg PO DAILY #30 tablet 10/28/16 Nicotine Patch [Nicoderm Patch -] 14 mg TD DAILY #30 patch 10/28/16 Family Disease History - Family Disease History Family History: Unremarkable Other Family History: non-contributory Review of Systems - Review of Systems Constitutional: reports: Loss of Appetite, Malaise, Unintentional Wgt. Loss Eyes: reports: No Symptoms HENT: reports: No Symptoms Neck: reports: No Symptoms Cardiovascular: reports: Chest Pain Respiratory: reports: Cough, SOB Gastrointestinal: reports: No Symptoms Genitourinary: reports: No Symptoms Musculoskeletal: reports: Joint Pain, Muscle Weakness Neurological: reports: No Symptoms Physical Examination Vital Signs: Vital Signs Temperature 97.9 F 11/10/16 13:27 Pulse Rate 87 11/10/16 13:27 Respiratory Rate 20 11/10/16 13:42 Blood Pressure 95/68 11/10/16 13:27 O2 Sat by Pulse Oximetry (%) 99 11/10/16 13:42 Constitutional: Yes: Anxious Eyes: Yes: WNL HENT: Yes: WNL Neck: Yes: Supple Cardiovascular: Yes: WNL, Regular Rate and Rhythm Respiratory: Yes: Rhonchi, Other ((+) rocco cath chest wall) Gastrointestinal: Yes: WNL, Normal Bowel Sounds, Soft Musculoskeletal: Yes: WNL Extremities: Yes: WNL Edema: No Neurological: Yes: WNL, Alert, Oriented Labs: CBC, BMP 11/10/16 07:00 11/10/16 07:00 Problem List - Problems (1) Primary lung adenocarcinoma Assessment/Plan: As per onco/pulmonary ?Postobstructive pneumonia vs worsening mass Cont nebulizers Empiric IV antibxs as per ID Code(s): C34.90 - MALIGNANT NEOPLASM OF UNSP PART OF UNSP BRONCHUS OR LUNG (2) Chest pain Assessment/Plan: Atypical ?Shingles Cont acyclovir Cont isolation Code(s): R07.9 - CHEST PAIN, UNSPECIFIED (3) Pancytopenia Assessment/Plan: Cont to monitor counts Code(s): D61.818 - OTHER PANCYTOPENIA (4) COPD (chronic obstructive pulmonary disease) Assessment/Plan: Cont nebulizers Code(s): J44.9 - CHRONIC OBSTRUCTIVE PULMONARY DISEASE, UNSPECIFIED Qualifiers : COPD type: unspecified COPD Qualified Code(s): J44.9 - Chronic obstructive pulmonary disease, unspecified (5) Hypothyroidism Assessment/Plan: Cont levothyroxine Check TSH Code(s): E03.9 - HYPOTHYROIDISM, UNSPECIFIED Qualifiers: Hypothyroidism type: unspecified Qualified Code(s): E03.9 - Hypothyroidism, unspecified (6) Pericardial effusion Code(s): I31.3 - PERICARDIAL EFFUSION (NONINFLAMMATORY)
[2016-11-10] MEDS ORDERED: POTASSIUM CHLORIDE TABS 20 MEQ TABLET.ER (FP) PO ONE (21:16)
[2016-11-10] MEDS: VANCOMYCIN 1 GRAM (PRE-DOCKED) 1,000 MG/250 ML BAG IVPB SCH (22:03)
[2016-11-10] MEDS: morphine SO4 SUSTAINED ACTING 15 MG TABLET.SA PO SCH (22:07)
[2016-11-10] MEDS: valACYclovir HCL 500 MG TABLET (FP) PO SCH (22:08)
[2016-11-11] MEDS: PIPERACILLIN/TAZOB 4.5 GM/100 ML PRE-DOCKED IVPB SCH ×3 (01:10→18:17)
[2016-11-11] MEDS: valACYclovir HCL 500 MG TABLET (FP) PO SCH ×3 (06:21→21:58)
[2016-11-11] MEDS: LEVOTHYROXINE NA 100 MCG TABLET (FP) PO SCH (06:21)
[2016-11-11] MEDS ORDERED: LEVOTHYROXINE NA 100 MCG TABLET (FP) PO SCH (07:00)
[2016-11-11 07:05] LABS: ALBUMIN 2.1 g/dl (3.4-5.0); ANION GAP 8 (8-16); BILIRUBIN,TOTAL 0.4 mg/dL (0.2-1.0); CALCIUM 7.5 mg/dL (8.5-10.1); CO2 32 mmol/L (21-32); CREATININE 0.9 mg/dL (0.7-1.3); GLUCOSE,RANDOM 91 mg/dL (74-106); MAGNESIUM 1.4 mg/dL (1.8-2.4); SGOT/AST 81 U/L (15-37); SGPT/ALT 39 U/L (12-78); TOT PROT 5.2 g/dl (6.4-8.2)
[2016-11-11 07:14] LABS: ALK PHOS 224 U/L (45-117)
[2016-11-11 07:33] LABS: MCHC 32.3 g/dl (32.0-35.9); MEAN CELL VOLUME 59.6 fl (80-96); MEAN PLT VOLUME 8.7 fl (7.5-11.1); PLATELET COUNT 128 K/MM3 (134-434); RDW 14.5 % (11.9-15.9); WHITE BLOOD COUNT 2.6 K/mm3 (4.0-10.0)
[2016-11-11 07:37] LABS: MCH 19.3 pg (25.7-33.7)
[2016-11-11 09:38] LABS: METAMYELOCYTE 2 % (0-2)
[2016-11-11 09:40] LABS: OSMOLALITY,SERUM 258 mosm/kg (278-305)
--- NOTE | 2016-11-11 10:20 | PN ---
Progress Note (short form) - Note Progress Note: complains of chest discomfort pressure sensation intermittent cough laying flat Vital Signs Period Temp Pulse Resp BP Sys/Brandon Pulse Ox Last 24 Hr 97.2 F-98.9 F 72-91 18-20 94-108/56-68 90-99 cor-rrr lungs decreased bs on right abd soft,nt ext no edema back with a small cluster of drying papules CBC, BMP 11/11/16 05:35 11/11/16 05:35 [id number] Microbiology 11/10/16 16:00 Urine For Antigen Detection Legionella Antigen - Final 11/10/16 16:00 Urine For Antigen Detection Streptococcus pneumoniae Antigen (M - Final 11/10/16 08:51 Blood - Peripheral Venous Blood Culture - Preliminary NO GROWTH OBTAINED AFTER 24 HOURS, INCUBATION TO CONTINUE FOR 4 DAYS. 11/10/16 08:45 Blood - Peripheral Venous Blood Culture - Preliminary NO GROWTH OBTAINED AFTER 24 HOURS, INCUBATION TO CONTINUE FOR 4 DAYS. a/p right lung atelectasis- cannot r/o pneumonia on vanco/zosyn f/u cultures f/u with pulmonary possible zoster- on po valtrex adenoca of lung s/p chemo- neutropenia resolving, anc improving
[2016-11-11] MEDS ORDERED: PT OWN MED DRAWER 7, Y5N ONE ×2 (10:44→20:53)
[2016-11-11] MEDS: morphine CARPU-JECT 4 MG/1 ML DISP.SYRIN IVPUSH PRN ×2 (10:48→19:01)
[2016-11-11] MEDS: morphine SO4 SUSTAINED ACTING 15 MG TABLET.SA PO SCH ×2 (10:56→21:58)
[2016-11-11] MEDS: NICOTINE 14 MG/24 HOURS TOPICAL PATCH TD SCH (11:49)
[2016-11-11] MEDS: HEPARIN NA (PORCINE) 5,000 UNITS/ML 1ML VIAL SQ SCH ×2 (11:50→21:57)
[2016-11-11] MEDS: guaiFENesin 600 MG TABLET.ER (FP) PO SCH (11:50)
[2016-11-11] MEDS: FOLIC ACID 1 MG TABLET (FP) PO SCH (11:50)
[2016-11-11] MEDS: VANCOMYCIN 1 GRAM (PRE-DOCKED) 1,000 MG/250 ML BAG IVPB SCH ×2 (12:09→21:59)
[2016-11-11] MEDS: TBO-FILGRASTIM 480 MCG/0.8 ML DISP.SYRIN SQ SCH (14:35)
--- NOTE | 2016-11-11 14:35 | PN ---
Progress Note, Physician History of Present Illness: PULMONARY ALERT,C/O R SIDED CHEST DISCOMFORT - Current Medication List Current Medications: Active Medications Folic Acid (Folic Acid -) 1 mg PO DAILY [facility] Last Admin: 11/11/16 11:50 Dose: 1 mg Guaifenesin (Mucinex -) 600 mg PO BID [facility] Last Admin: 11/11/16 11:50 Dose: Not Given Heparin Sodium (Porcine) (Heparin -) 5,000 unit SQ BID [facility] Last Admin: 11/11/16 11:50 Dose: 5,000 unit Levothyroxine Sodium (Synthroid -) 100 mcg PO AM [facility] Last Admin: 11/11/16 06:21 Dose: 100 mcg Morphine Sulfate (Morphine Injection -) 4 mg IVPUSH Q4H PRN PRN Reason: PAIN Last Admin: 11/11/16 10:48 Dose: 4 mg Morphine Sulfate (Ms Contin -) 15 mg PO BID [facility] Last Admin: 11/11/16 10:56 Dose: 15 mg Nicotine (Nicoderm Patch -) 14 mg TD DAILY [facility] Last Admin: 11/11/16 11:49 Dose: 14 mg Piperacillin Sod/Tazobactam Sod (Zosyn 4.5gm Ivpb (Pre-Docked)) 4.5 gm IVPB Q8H -IV [facility] Last Admin: 11/11/16 11:49 Dose: 4.5 gm Tbo-Filgrastim (Granix -) 480 mcg SQ DAILY [facility] Last Admin: 11/10/16 17:47 Dose: 480 mcg Valacyclovir HCl (Valtrex -) 1,000 mg PO TID [facility] Last Admin: 11/11/16 06:21 Dose: 1,000 mg Vancomycin HCl (Vancomycin (Pre-Docked)) 1,000 mg IVPB BID [facility] Last Admin: 11/11/16 12:09 Dose: 1,000 mg - Objective Vital Signs: Vital Signs Temperature 97.8 F 11/11/16 14:15 Pulse Rate 77 11/11/16 14:15 Respiratory Rate 20 11/11/16 14:15 Blood Pressure 101/60 11/11/16 14:15 O2 Sat by Pulse Oximetry (%) 94 L 11/10/16 20:40 Constitutional: Yes: Well Nourished, Calm Eyes: Yes: WNL HENT: Yes: WNL Neck: Yes: Supple Cardiovascular: Yes: Regular Rate and Rhythm, S1, S2 Respiratory: Yes: Diminished (DIMINISHED BS ON R) Gastrointestinal: Yes: Normal Bowel Sounds, Soft Extremities: Yes: WNL, Other ( TK CLUBBING) Labs: CBC, BMP 11/11/16 05:35 11/11/16 05:35 INR, PTT INR 1.23 (0.82-1.09) H 11/09/16 18:45 - ....Imaging Cat Scan: Report Reviewed, Image Reviewed Assessment/Plan Problem List - Problems (1) Primary lung adenocarcinoma Code(s): C34.90 - MALIGNANT NEOPLASM OF UNSP PART OF UNSP BRONCHUS OR LUNG (2) Pneumonia Code(s): J18.9 - PNEUMONIA, UNSPECIFIED ORGANISM Qualifiers: Pneumonia type: due to unspecified organism Laterality: right Lung location: lower lobe of lung Qualified Code(s): J18.9 - Pneumonia, unspecified organism (3) Pericardial effusion Code(s): I31.3 - PERICARDIAL EFFUSION (NONINFLAMMATORY) (4) COPD (chronic obstructive pulmonary disease) Code(s): J44.9 - CHRONIC OBSTRUCTIVE PULMONARY DISEASE, UNSPECIFIED Qualifiers : COPD type: unspecified COPD Qualified Code(s): J44.9 - Chronic obstructive pulmonary disease, unspecified (5) Atelectasis Code(s): J98.11 - ATELECTASIS Assessment/Plan Chest pain likely attributable to Post obstructive pneumonia from progressive tumor enlargement vs mucous plugging NSCLC (Adeno) COPD Atelectasis Recent Chemo - antibiotics per ID - pain control - chest PT - incentive spirometry - inhaled bronchodilators - can consider inspection bronchoscopy to evaluate whether obstruction due to tumor vs mucous plugging - DVT prophylaxis - f/u chest x-rays DR ARTEAGA
--- NOTE | 2016-11-11 14:56 | CONSULT ---
Consult Consult Specialty:: Cardiology Referred by:: Estrada Lord MD Reason for Consultation:: Pericardial effusion - History of Present Illness Chief Complaint: Right-sided chest pain History of Present Illness: A 50-year-old male with history of NSCLC (stage IIIB), tobacco abuse, hypothyroidism, pericardial effusion, recent admission for PNA, chemo 1 week ago presented with right-sided chest pain, mild dyspnea, no cough or wheeze, CXR showing complete opacification of right hemithorax. Recent imaging on last admission only showing atelectasis of RUL with mass. During previous admission echocardiogram showed moderate pericardial effusion with full expansion of RA and RV. - Past Medical History ADOPTION COUNSELOR: Yes: Alzheimer's Cardio/Vascular: Yes: Other (Pericardial effusion w/ tamponade) Pulmonary: Yes: COPD, Other (Adenocarcinoma lung ?mets to adrenals Pleural effusion). No: O2 Dependent Endocrine: Yes: Hypothyroidism. No: Diabetes Mellitus - Alcohol/Substance Use Hx Alcohol Use: No - Smoking History Smoking history: Current every day smoker Have you smoked in the past 12 months: Yes Aproximately how many cigarettes per day: 12 If you are a former smoker, when did you quit?: 1 wk ago - Social History History of Recent Travel: No Home Medications - Allergies Allergies/Adverse Reactions: Allergies Allergy/AdvReac Type Severity Reaction Status Date / Time No Known Allergies Allergy Verified 11/09/16 18:13 - Home Medications Home Medications: Ambulatory Orders Levothyroxine [Synthroid -] 25 mcg PO DAILY 11/29/12 Acetaminophen [Tylenol] 325 mg PO QID PRN 10/22/16 Guaifenesin [Mucinex -] 600 mg PO BID 10/22/16 Acetaminophen [Tylenol .Regular Strength -] 650 mg PO Q6H PRN #90 tablet Folic Acid - 1 mg PO DAILY #30 tablet 10/28/16 Nicotine Patch [Nicoderm Patch -] 14 mg TD DAILY #30 patch 10/28/16 Family Disease History - Family Disease History Other Family History: non-contributory Review of Systems - Review of Systems Cardiovascular: reports: Chest Pain Vital Signs: Vital Signs Temperature 97.8 F 11/11/16 14:15 Pulse Rate 77 11/11/16 14:15 Respiratory Rate 20 11/11/16 14:15 Blood Pressure 101/60 11/11/16 14:15 O2 Sat by Pulse Oximetry (%) 94 L 11/10/16 20:40 Constitutional: Yes: No Distress, Calm Neck: Yes: Supple Respiratory: Yes: Regular, Diminished, On Nasal O2 Gastrointestinal: Yes: Normal Bowel Sounds, Soft Cardiovascular: Yes: Regular Rate and Rhythm JVD: No Carotid Bruit: No Heart Sounds: Yes: S1, S2 Edema: No - Other Data Labs, Other Data: CBC, BMP 11/11/16 05:35 11/11/16 05:35 INR, PTT INR 1.23 (0.82-1.09) H 11/09/16 18:45 NSR nonspec T wave changes Ejection Fraction %: LVEF > or = 40 % Imaging - Results Chest X-ray: Report Reviewed ((right opacification)) Cat Scan: Report Reviewed Problem List - Problems (1) Atelectasis Code(s): J98.11 - ATELECTASIS (2) Chest pain Code(s): R07.9 - CHEST PAIN, UNSPECIFIED Qualifiers: Chest pain type: chest pain on breathing Qualified Code(s): R07.1 - Chest pain on breathing (3) Pericardial effusion Code(s): I31.3 - PERICARDIAL EFFUSION (NONINFLAMMATORY) (4) Primary lung adenocarcinoma Code(s): C34.90 - MALIGNANT NEOPLASM OF UNSP PART OF UNSP BRONCHUS OR LUNG Qualifiers: Laterality: right Qualified Code(s): C34.91 - Malignant neoplasm of unspecified part of right bronchus or lung (5) COPD (chronic obstructive pulmonary disease) Code(s): J44.9 - CHRONIC OBSTRUCTIVE PULMONARY DISEASE, UNSPECIFIED Qualifiers : COPD type: unspecified COPD Qualified Code(s): J44.9 - Chronic obstructive pulmonary disease, unspecified (6) Hypothyroidism Code(s): E03.9 - HYPOTHYROIDISM, UNSPECIFIED Qualifiers: Hypothyroidism type: unspecified Qualified Code(s): E03.9 - Hypothyroidism, unspecified (7) Obstructive pneumonia Code(s): J18.9 - PNEUMONIA, UNSPECIFIED ORGANISM Assessment/Plan 1. Chest pain likely attributable to post obstructive pneumonia from progressive tumor enlargement vs mucous plugging 2. Pericardial effusion not in tamponade, suspect malignant 3. RUL Stage IIIB NSCLC 3. COPD 4. Atelectasis 5. Hypothyroidism P:1. Empiric abx per C&S 2. BD, O2, mucolytics, chest PT, bronchoscopy to observe tumor progression vs mucous plugging 3. Would repeat echo in 1 month to assess pericardial effusion 4. Started chemotherapy per oncology 5. Thank you for consultative opportunity
--- NOTE | 2016-11-11 15:20 | PN ---
Progress Note (short form) - Note Progress Note: Radiation Oncology Full consult to follow, pt seen and examined, diagnostic results reviewed, previously discussed in TB. Stage IIIB adenocarcinoma of RUL with hilar/bilateral mediastinal LAD a/w right upper chest pain and progressive postobstructive atelectasis and PNA of RLL 2/2 to airway obstruction. Seen on recent admission with plan for chemo followed by concurrent chemoRT. 1st cycle of alimta/carbo last week w neulasta. Pulmonary to consider bronch to identify tumor obstruction vs mucous plug. Cont empiric tx for PNA and zoster per ID. Pain management. Neutropenia/thrombocytpenia mild, will need improvement before any RT. Will consider adding thoracic RT palliative vs definitive pending hospital course.
--- NOTE | 2016-11-11 16:09 | PN ---
Progress Note (short form) - Note Progress Note: Patient seen and examined Still with pain right chest Last Vital Signs Temp Pulse Resp BP Pulse Ox 97.8 F 77 20 101/60 94 L 11/11/16 14:15 11/11/16 14:15 11/11/16 14:15 11/11/16 14:15 11/10/16 20:40 HEENT: SILVINO, EOM Intact Oropharynx: No thrush, No mucositis Cor: RSR, No murmurs, No gallops Lungs: decreased rt. breath sounds Abd: Soft, Normal bowel sounds, No organomegaly Ext:No significant edema Abnormal Lab Results 11/10/16 11/11/16 11/11/16 23:34 05:35 05:35 WBC 2.6 L Hgb 8.7 L Hct 27.0 L MCV 59.6 L Plt Count 128 L D Neutrophils % 26.0 L Monocytes % 14.0 H Eosinophils % 12.0 H Band Neutrophils 12.0 H D Sodium 129 L Potassium 3.4 L Chloride 89 L Serum Osmolality 258 L Calcium 7.5 L Magnesium 1.4 L D AST 81 H D Alkaline Phosphatase 224 H D Total Protein 5.2 L Albumin 2.1 L TSH 35.70 H D Urine Osmolality 237 L Current Medications Folic Acid (Folic Acid -) 1 mg PO DAILY [facility] Last Admin: 11/11/16 11:50 Dose: 1 mg Guaifenesin (Mucinex -) 600 mg PO BID [facility] Last Admin: 11/11/16 11:50 Dose: Not Given Heparin Sodium (Porcine) (Heparin -) 5,000 unit SQ BID [facility] Last Admin: 11/11/16 11:50 Dose: 5,000 unit Levothyroxine Sodium (Synthroid -) 100 mcg PO AM [facility] Last Admin: 11/11/16 06:21 Dose: 100 mcg Morphine Sulfate (Morphine Injection -) 4 mg IVPUSH Q4H PRN PRN Reason: PAIN Last Admin: 11/11/16 10:48 Dose: 4 mg Morphine Sulfate (Ms Contin -) 15 mg PO BID [facility] Last Admin: 11/11/16 10:56 Dose: 15 mg Nicotine (Nicoderm Patch -) 14 mg TD DAILY [facility] Last Admin: 11/11/16 11:49 Dose: 14 mg Piperacillin Sod/Tazobactam Sod (Zosyn 4.5gm Ivpb (Pre-Docked)) 4.5 gm IVPB Q8H -IV [facility] Last Admin: 11/11/16 11:49 Dose: 4.5 gm Tbo-Filgrastim (Granix -) 480 mcg SQ DAILY [facility] Last Admin: 11/11/16 14:35 Dose: 480 mcg Valacyclovir HCl (Valtrex -) 1,000 mg PO TID [facility] Last Admin: 11/11/16 14:35 Dose: 1,000 mg Vancomycin HCl (Vancomycin (Pre-Docked)) 1,000 mg IVPB BID [facility] Last Admin: 11/11/16 12:09 Dose: 1,000 mg A/P 50 y/o patient with metastatic poorly diff. adenoca of the lung, C1D10 carbo/ alimta Stage IV adenocarcinoma of RUL --? adrenal mets--with hilar/bilateral mediastinal LAD a/w right upper chest pain and progressive postobstructive atelectasis and PNA of RLL 2/2 to airway obstruction. Pulmonary to consider bronch to identify tumor obstruction vs mucous plug. Cont empiric tx for PNA and zoster per ID. Pain management continue mucinex
[2016-11-11] MEDS: guaiFENesin 200 MG/10 ML 10 ML UNIT-DOSE CUPS PO PRN ×2 (18:29→22:12)
--- NOTE | 2016-11-11 21:12 | PN ---
Progress Note, Physician - Current Medication List Current Medications: Active Medications Docusate Sodium (Colace -) 100 mg PO BID PRN PRN Reason: CONSTIPATION Folic Acid (Folic Acid -) 1 mg PO DAILY [facility] Last Admin: 11/11/16 11:50 Dose: 1 mg Guaifenesin (Robitussin -) 10 ml PO Q4H PRN PRN Reason: COUGH Last Admin: 11/11/16 18:29 Dose: 10 ml Heparin Sodium (Porcine) (Heparin -) 5,000 unit SQ BID [facility] Last Admin: 11/11/16 11:50 Dose: 5,000 unit Levothyroxine Sodium (Synthroid -) 100 mcg PO AM [facility] Last Admin: 11/11/16 06:21 Dose: 100 mcg Morphine Sulfate (Morphine Injection -) 4 mg IVPUSH Q4H PRN PRN Reason: PAIN Last Admin: 11/11/16 19:01 Dose: 4 mg Morphine Sulfate (Ms Contin -) 15 mg PO BID [facility] Last Admin: 11/11/16 10:56 Dose: 15 mg Nicotine (Nicoderm Patch -) 14 mg TD DAILY [facility] Last Admin: 11/11/16 11:49 Dose: 14 mg Piperacillin Sod/Tazobactam Sod (Zosyn 4.5gm Ivpb (Pre-Docked)) 4.5 gm IVPB Q8H -IV [facility] Last Admin: 11/11/16 18:17 Dose: 4.5 gm Senna (Senna -) 2 tab PO HS PRN PRN Reason: CONSTIPATION Tbo-Filgrastim (Granix -) 480 mcg SQ DAILY [facility] Last Admin: 11/11/16 14:35 Dose: 480 mcg Valacyclovir HCl (Valtrex -) 1,000 mg PO TID [facility] Last Admin: 11/11/16 14:35 Dose: 1,000 mg Vancomycin HCl (Vancomycin (Pre-Docked)) 1,000 mg IVPB BID [facility] Last Admin: 11/11/16 12:09 Dose: 1,000 mg - Objective Vital Signs: Vital Signs Temperature 98.7 F 11/11/16 18:40 Pulse Rate 86 11/11/16 18:40 Respiratory Rate 18 11/11/16 18:40 Blood Pressure 97/64 11/11/16 18:40 O2 Sat by Pulse Oximetry (%) 94 L 11/10/16 20:40 Labs: CBC, BMP 11/11/16 05:35 11/11/16 05:35 INR, PTT INR 1.23 (0.82-1.09) H 11/09/16 18:45 Problem List - Problems (1) Primary lung adenocarcinoma Code(s): C34.90 - MALIGNANT NEOPLASM OF UNSP PART OF UNSP BRONCHUS OR LUNG Qualifiers: Laterality: right Qualified Code(s): C34.91 - Malignant neoplasm of unspecified part of right bronchus or lung (2) Chest pain Code(s): R07.9 - CHEST PAIN, UNSPECIFIED Qualifiers: Chest pain type: chest pain on breathing Qualified Code(s): R07.1 - Chest pain on breathing (3) Pancytopenia Code(s): D61.818 - OTHER PANCYTOPENIA (4) COPD (chronic obstructive pulmonary disease) Code(s): J44.9 - CHRONIC OBSTRUCTIVE PULMONARY DISEASE, UNSPECIFIED Qualifiers : COPD type: unspecified COPD Qualified Code(s): J44.9 - Chronic obstructive pulmonary disease, unspecified (5) Hypothyroidism Code(s): E03.9 - HYPOTHYROIDISM, UNSPECIFIED Qualifiers: Hypothyroidism type: unspecified Qualified Code(s): E03.9 - Hypothyroidism, unspecified (6) Pericardial effusion Code(s): I31.3 - PERICARDIAL EFFUSION (NONINFLAMMATORY)
[2016-11-12] MEDS: morphine SO4 SUSTAINED ACTING 15 MG TABLET.SA PO SCH ×3 (00:05→21:21)
[2016-11-12] MEDS: PIPERACILLIN/TAZOB 4.5 GM/100 ML PRE-DOCKED IVPB SCH ×3 (02:04→18:19)
[2016-11-12] MEDS: guaiFENesin 200 MG/10 ML 10 ML UNIT-DOSE CUPS PO PRN ×4 (03:46→21:31)
[2016-11-12] MEDS: LEVOTHYROXINE NA 100 MCG TABLET (FP) PO SCH (06:30)
[2016-11-12] MEDS: valACYclovir HCL 500 MG TABLET (FP) PO SCH ×3 (06:30→21:20)
[2016-11-12] MEDS: morphine CARPU-JECT 4 MG/1 ML DISP.SYRIN IVPUSH PRN (06:33)
[2016-11-12] MEDS ORDERED: PT OWN MED DRAWER 7, Y5N ONE ×2 (09:32→14:49)
[2016-11-12] MEDS: DOCUSATE SODIUM 100 MG CAPSULE (FP) PO PRN (09:50)
[2016-11-12] MEDS: FOLIC ACID 1 MG TABLET (FP) PO SCH (09:50)
[2016-11-12] MEDS: SENNOSIDES 8.6MG TABLET (FP) PO PRN (09:52)
--- NOTE | 2016-11-12 09:53 | PN ---
Progress Note (short form) - Note Progress Note: Subjectively feels better. Less Right pleuritic CP. Minimal hemoptysis of dried blood. (+) diffuse itching of arms and thorax. Intake & Output 11/09/16 11/10/16 11/11/16 11/12/16 23:59 23:59 23:59 23:59 Intake Total 1300 1100 525 Balance 1300 1100 525 Weight 150 lb 150 lb 0.005 oz Last Vital Signs Temp Pulse Resp BP Pulse Ox 98.8 F 80 18 113/70 94 L 11/12/16 07:00 11/12/16 07:00 11/12/16 07:00 11/12/16 07:00 11/10/16 20:40 Active Medications Docusate Sodium (Colace -) 100 mg PO BID PRN PRN Reason: CONSTIPATION Folic Acid (Folic Acid -) 1 mg PO DAILY [facility] Last Admin: 11/11/16 11:50 Dose: 1 mg Guaifenesin (Robitussin -) 10 ml PO Q4H PRN PRN Reason: COUGH Last Admin: 11/12/16 03:46 Dose: 10 ml Heparin Sodium (Porcine) (Heparin -) 5,000 unit SQ BID [facility] Last Admin: 11/11/16 21:57 Dose: 5,000 unit Levothyroxine Sodium (Synthroid -) 100 mcg PO AM [facility] Last Admin: 11/12/16 06:30 Dose: 100 mcg Morphine Sulfate (Morphine Injection -) 4 mg IVPUSH Q4H PRN PRN Reason: PAIN Last Admin: 11/12/16 06:33 Dose: 4 mg Morphine Sulfate (Ms Contin -) 15 mg PO BID [facility] Last Admin: 11/12/16 00:05 Dose: 15 mg Nicotine (Nicoderm Patch -) 14 mg TD DAILY [facility] Last Admin: 11/11/16 11:49 Dose: 14 mg Piperacillin Sod/Tazobactam Sod (Zosyn 4.5gm Ivpb (Pre-Docked)) 4.5 gm IVPB Q8H -IV [facility] Last Admin: 11/12/16 02:04 Dose: 4.5 gm Senna (Senna -) 2 tab PO HS PRN PRN Reason: CONSTIPATION Tbo-Filgrastim (Granix -) 480 mcg SQ DAILY [facility] Last Admin: 11/11/16 14:35 Dose: 480 mcg Valacyclovir HCl (Valtrex -) 1,000 mg PO TID [facility] Last Admin: 11/12/16 06:30 Dose: 1,000 mg Vancomycin HCl (Vancomycin (Pre-Docked)) 1,000 mg IVPB BID [facility] Last Admin: 11/11/16 21:59 Dose: 1,000 mg Constitutional: Yes: NAD on RA Eyes: Yes: WNL HENT: Yes: WNL Neck: Yes: Supple Cardiovascular: Yes: Regular Rate and Rhythm, S1, S2 Respiratory: Yes: Diminished on the right, few scattered rhonchi Gastrointestinal: Yes: Normal Bowel Sounds, Soft Extremities: Yes: (-) edema Labs: Assessment/Plan Problem List - Problems (1) Primary lung adenocarcinoma Code(s): C34.90 - MALIGNANT NEOPLASM OF UNSP PART OF UNSP BRONCHUS OR LUNG (2) Pneumonia Code(s): J18.9 - PNEUMONIA, UNSPECIFIED ORGANISM Qualifiers: Pneumonia type: due to unspecified organism Laterality: right Lung location: lower lobe of lung Qualified Code(s): J18.9 - Pneumonia, unspecified organism (3) Pericardial effusion Code(s): I31.3 - PERICARDIAL EFFUSION (NONINFLAMMATORY) (4) COPD (chronic obstructive pulmonary disease) Code(s): J44.9 - CHRONIC OBSTRUCTIVE PULMONARY DISEASE, UNSPECIFIED Qualifiers : COPD type: unspecified COPD Qualified Code(s): J44.9 - Chronic obstructive pulmonary disease, unspecified (5) Atelectasis Code(s): J98.11 - ATELECTASIS Assessment/Plan Chest pain due to tumor burden and pleuritic disease Rapid and progressive tumor enlargement Suspect external compression of Right bronchus -> Atelectasis NSCLC (Adeno) COPD Atelectasis Recent Chemo - antibiotics per ID - pain control - chest PT - incentive spirometry - inhaled bronchodilators - DVT prophylaxis - I feel a Broch would not be helpful to open the airway and can actually cause increased morbidity due to possible bleeding that may not be controllable Dr Figueroa
[2016-11-12] MEDS: HEPARIN NA (PORCINE) 5,000 UNITS/ML 1ML VIAL SQ SCH ×2 (09:56→21:20)
[2016-11-12] MEDS: VANCOMYCIN 1 GRAM (PRE-DOCKED) 1,000 MG/250 ML BAG IVPB SCH (09:57)
[2016-11-12] MEDS: NICOTINE 14 MG/24 HOURS TOPICAL PATCH TD SCH (09:57)
[2016-11-12] MEDS: TBO-FILGRASTIM 480 MCG/0.8 ML DISP.SYRIN SQ SCH ×2 (10:00→15:07)
--- NOTE | 2016-11-12 11:45 | PN ---
Progress Note, Physician Chief Complaint: ID Vancomycin Zosyn Feels much better No fever and chest pain less Still has couph less - Current Medication List Current Medications: Active Medications Docusate Sodium (Colace -) 100 mg PO BID PRN PRN Reason: CONSTIPATION Last Admin: 11/12/16 09:50 Dose: 100 mg Folic Acid (Folic Acid -) 1 mg PO DAILY [facility] Last Admin: 11/12/16 09:50 Dose: 1 mg Guaifenesin (Robitussin -) 10 ml PO Q4H PRN PRN Reason: COUGH Last Admin: 11/12/16 09:52 Dose: 10 ml Heparin Sodium (Porcine) (Heparin -) 5,000 unit SQ BID [facility] Last Admin: 11/12/16 09:56 Dose: 5,000 unit Hydroxyzine HCl (Atarax -) 25 mg PO Q6H PRN PRN Reason: FOR ITCHING Levothyroxine Sodium (Synthroid -) 100 mcg PO AM [facility] Last Admin: 11/12/16 06:30 Dose: 100 mcg Morphine Sulfate (Morphine Injection -) 4 mg IVPUSH Q4H PRN PRN Reason: PAIN Last Admin: 11/12/16 06:33 Dose: 4 mg Morphine Sulfate (Ms Contin -) 15 mg PO BID [facility] Last Admin: 11/12/16 09:51 Dose: 15 mg Nicotine (Nicoderm Patch -) 14 mg TD DAILY [facility] Last Admin: 11/12/16 09:57 Dose: 14 mg Piperacillin Sod/Tazobactam Sod (Zosyn 4.5gm Ivpb (Pre-Docked)) 4.5 gm IVPB Q8H -IV [facility] Last Admin: 11/12/16 09:56 Dose: 4.5 gm Senna (Senna -) 2 tab PO HS PRN PRN Reason: CONSTIPATION Last Admin: 11/12/16 09:52 Dose: 2 tab Tbo-Filgrastim (Granix -) 480 mcg SQ DAILY [facility] Last Admin: 11/11/16 14:35 Dose: 480 mcg Valacyclovir HCl (Valtrex -) 1,000 mg PO TID [facility] Last Admin: 11/12/16 06:30 Dose: 1,000 mg Vancomycin HCl (Vancomycin (Pre-Docked)) 1,000 mg IVPB BID [facility] Last Admin: 11/12/16 09:57 Dose: 1,000 mg - Objective Vital Signs: Vital Signs Temperature 98.8 F 11/12/16 07:00 Pulse Rate 80 11/12/16 07:00 Respiratory Rate 18 11/12/16 07:00 Blood Pressure 113/70 11/12/16 07:00 O2 Sat by Pulse Oximetry (%) 94 L 11/10/16 20:40 Constitutional: Yes: No Distress, Thin HENT: Yes: Thrush Neck: Yes: Other ([place]) Cardiovascular: Yes: Regular Rate and Rhythm, S1, S2 Respiratory: Yes: WNL, Regular, CTA Bilaterally Gastrointestinal: Yes: WNL, Normal Bowel Sounds, Soft. No: Tenderness Labs: CBC, BMP 11/11/16 05:35 11/11/16 05:35 INR, PTT INR 1.23 (0.82-1.09) H 11/09/16 18:45 Assessment/Plan Microbiology 11/10/16 16:00 Urine For Antigen Detection Legionella Antigen - Final 11/10/16 16:00 Urine For Antigen Detection Streptococcus pneumoniae Antigen (M - Final 11/10/16 08:51 Blood - Peripheral Venous Blood Culture - Preliminary NO GROWTH OBTAINED AFTER 48 HOURS, INCUBATION TO CONTINUE FOR 3 DAYS. 11/10/16 08:45 Blood - Peripheral Venous Blood Culture - Preliminary NO GROWTH OBTAINED AFTER 48 HOURS, INCUBATION TO CONTINUE FOR 3 DAYS. Laboratory Tests 11/11/16 11/11/16 05:35 05:35 WBC 2.6 L Hgb 8.7 L Hct 27.0 L Neutrophils % 26.0 L BUN 9 Creatinine 0.9 Assessment Lung Cancer with complete opacification of right lung. Unclear if he has pneumonia Plan Stop Vanco Continue Zosyn Unable to bronch per Dr Carolina Park MD
--- NOTE | 2016-11-12 14:01 | CONS ---
DATE OF CONSULTATION: 11/11/2016 REFERRING PHYSICIAN: Estrada Lord MD REASON FOR CONSULTATION: Chest pain. HISTORY OF PRESENT ILLNESS: The patient is a 50-year-old gentleman known to our service from recent admission for postobstructive pneumonia. He was initially seen by Dr. Bañuelos for evaluation. 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 He was evaluated for possible tamponade from pericardial effusion, which was suspicious for a malignant effusion. The plan was to proceed with initial chemotherapy and add thoracic radiation therapy concurrently for maximum local control. The patient was presented in the multidisciplinary tumor board. He is now readmitted for increasing right-sided chest pain. The pain is pleuritic in nature exacerbated by cough and deep inspiration as well as standing. He has had less hemoptysis since the last admission as well as less mucus secretions. He received the 1st cycle of carboplatin and Alimta last Wednesday followed by Neulasta. Subsequently over the weekend he had increasing right-sided chest pain without fever, chills, or shortness of breath. CT of the chest with contrast showed interval development of extensive right lung consolidation consistent with postobstructive atelectasis and/or pneumonitis. A small pericardial effusion mildly increased in size. As on the prior study, there is almost complete occlusion of the right lower lobe bronchus. There was a large right upper lobe mass again seen. There is extensive right hilar and mediastinal lymphadenopathy. He has a pruritic rash on the chest and back suspicious for zoster. He is receiving empiric treatment of postobstructive pneumonia, and Valtrex for zoster. PAST MEDICAL HISTORY: Hypothyroidism. ALLERGIES: No known drug allergies. CURRENT MEDICATIONS: Zosyn, vancomycin, heparin subcutaneous, Nicoderm patch, Neulasta, Valtrex, MS Contin, Synthroid, folic acid. FAMILY HISTORY: Noncontributory for cancer. SOCIAL HISTORY: Born and raised in [place]. 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 Prior tobacco history. Now currently smoking 12 cigarettes a day. No current alcohol use. REVIEW OF SYSTEMS: As noted above. PHYSICAL EXAMINATION: General: A thin, male in no acute distress speaking in complete sentences. Vital Signs: Stable. Afebrile. HEENT: Mucous membranes are moist. Sclerae are anicteric. Oral cavity is clear. Neck: No adenopathy in the supraclavicular region. No axillary adenopathy. Lungs: Decreased breath sounds in the right lung berry upper and lower. Clear on the left. Papular rash on central chest and back. Cardiovascular: Regular. Abdomen: Soft, nontender, and nondistended. Extremities: No peripheral edema. Musculoskeletal: No spine, CVA, or chest wall tenderness on palpation. Neurologic: Grossly nonfocal. RADIOLOGIC DATA: As noted above. LABORATORY DATA: WBC 2.1, ANC 570, hemoglobin 9.6, platelet count 128,000. Sodium 129, potassium 3.4, BUN 9, creatinine 0.9, calcium 7.5, alkaline phosphatase 224 , albumin 2.1. IMPRESSION: A 50-year-old with local regionally advanced pulmonary adenocarcinoma with possible adrenal metastasis and malignant pericardial effusion status post 1st cycle of carboplatin and Alimta chemotherapy readmitted for pleuritic right upper chest pain and progressive right lower lobe atelectasis versus pneumonia secondary to airway obstruction most likely from tumor progression. Bronchoscopy is being considered by pulmonary to identify the tumor obstruction or mucus plug. I recommend continuing supportive care with empiric treatment of the pneumonia and zoster per ID. Pain management as well. Management of pancytopenia and neutropenia, will need to be improved before consideration of any radiation therapy. Addition of thoracic radiotherapy will considered either palliatively or definitively pending the hospital course. We will continue to follow the patient with you. Discussed with medical oncology. Thank you for the courtesy of this consultation. JULIÁN HULL M.D. FRED/[id number] MTDD
[2016-11-12] MEDS: hydrOXYzine HCL 25 MG TABLET (FP) PO PRN (15:25)
--- NOTE | 2016-11-12 19:12 | PN ---
Progress Note (short form) - Note Progress Note: Patient seen and examined Still with pain right chest Last Vital Signs Temp Pulse Resp BP Pulse Ox 97.7 F 83 18 129/64 94 L 11/12/16 17:32 11/12/16 17:32 11/12/16 17:32 11/12/16 17:32 11/10/16 20:40 HEENT: SILVINO, EOM Intact Oropharynx: No thrush, No mucositis Cor: RSR, No murmurs, No gallops Lungs: decreased rt. breath sounds Abd: Soft, Normal bowel sounds, No organomegaly Ext:No significant edema Current Medications Docusate Sodium (Colace -) 100 mg PO BID PRN PRN Reason: CONSTIPATION Last Admin: 11/12/16 09:50 Dose: 100 mg Folic Acid (Folic Acid -) 1 mg PO DAILY [facility] Last Admin: 11/12/16 09:50 Dose: 1 mg Guaifenesin (Robitussin -) 10 ml PO Q4H PRN PRN Reason: COUGH Last Admin: 11/12/16 15:15 Dose: 10 ml Heparin Sodium (Porcine) (Heparin -) 5,000 unit SQ BID [facility] Last Admin: 11/12/16 09:56 Dose: 5,000 unit Hydroxyzine HCl (Atarax -) 25 mg PO Q6H PRN PRN Reason: FOR ITCHING Last Admin: 11/12/16 15:25 Dose: 25 mg Levothyroxine Sodium (Synthroid -) 100 mcg PO AM [facility] Last Admin: 11/12/16 06:30 Dose: 100 mcg Morphine Sulfate (Morphine Injection -) 4 mg IVPUSH Q4H PRN PRN Reason: PAIN Last Admin: 11/12/16 06:33 Dose: 4 mg Morphine Sulfate (Ms Contin -) 15 mg PO BID [facility] Last Admin: 11/12/16 09:51 Dose: 15 mg Nicotine (Nicoderm Patch -) 14 mg TD DAILY [facility] Last Admin: 11/12/16 09:57 Dose: 14 mg Piperacillin Sod/Tazobactam Sod (Zosyn 4.5gm Ivpb (Pre-Docked)) 4.5 gm IVPB Q8H -IV [facility] Last Admin: 11/12/16 18:19 Dose: 4.5 gm Senna (Senna -) 2 tab PO HS PRN PRN Reason: CONSTIPATION Last Admin: 11/12/16 09:52 Dose: 2 tab Tbo-Filgrastim (Granix -) 480 mcg SQ DAILY [facility] Last Admin: 11/12/16 15:07 Dose: 480 mcg Valacyclovir HCl (Valtrex -) 1,000 mg PO TID [facility] Last Admin: 11/12/16 15:12 Dose: 1,000 mg A/P 50 y/o patient with metastatic poorly diff. adenoca of the lung, C1D11 carbo/ alimta Stage IV adenocarcinoma of RUL --? adrenal mets--with hilar/bilateral mediastinal LAD a/w right upper chest pain and progressive postobstructive atelectasis and PNA of RLL 2/2 to airway obstruction. Pulmonary feels bronch may not be an option ? CT surgery consult RT consult noted Cont empiric tx for PNA and zoster per ID. Pain management
[2016-11-12] MEDS ORDERED: POTASSIUM CHLORIDE TABS 20 MEQ TABLET.ER (FP) PO ONE (20:31)
--- NOTE | 2016-11-12 23:10 | PN ---
Progress Note, Physician History of Present Illness: No new changes - Current Medication List Current Medications: Active Medications Docusate Sodium (Colace -) 100 mg PO BID PRN PRN Reason: CONSTIPATION Last Admin: 11/12/16 09:50 Dose: 100 mg Folic Acid (Folic Acid -) 1 mg PO DAILY [facility] Last Admin: 11/12/16 09:50 Dose: 1 mg Guaifenesin (Robitussin -) 10 ml PO Q4H PRN PRN Reason: COUGH Last Admin: 11/12/16 21:31 Dose: 10 ml Heparin Sodium (Porcine) (Heparin -) 5,000 unit SQ BID [facility] Last Admin: 11/12/16 21:20 Dose: 5,000 unit Hydroxyzine HCl (Atarax -) 25 mg PO Q6H PRN PRN Reason: FOR ITCHING Last Admin: 11/12/16 15:25 Dose: 25 mg Levothyroxine Sodium (Synthroid -) 100 mcg PO AM [facility] Last Admin: 11/12/16 06:30 Dose: 100 mcg Morphine Sulfate (Ms Contin -) 15 mg PO BID [facility] Last Admin: 11/12/16 21:21 Dose: 15 mg Morphine Sulfate (Morphine Injection -) 2 mg IVPUSH Q6H PRN PRN Reason: PAIN Nicotine (Nicoderm Patch -) 14 mg TD DAILY [facility] Last Admin: 11/12/16 09:57 Dose: 14 mg Piperacillin Sod/Tazobactam Sod (Zosyn 4.5gm Ivpb (Pre-Docked)) 4.5 gm IVPB Q8H -IV [facility] Last Admin: 11/12/16 18:19 Dose: 4.5 gm Polyethylene Glycol (Miralax (For Daily Use) -) 17 gm PO DAILY [facility] Senna (Senna -) 2 tab PO HS PRN PRN Reason: CONSTIPATION Last Admin: 11/12/16 09:52 Dose: 2 tab Valacyclovir HCl (Valtrex -) 1,000 mg PO TID [facility] Last Admin: 11/12/16 21:20 Dose: 1,000 mg - Objective Vital Signs: Vital Signs Temperature 98.2 F 11/12/16 21:15 Pulse Rate 84 11/12/16 21:15 Respiratory Rate 20 11/12/16 21:15 Blood Pressure 106/65 11/12/16 21:15 O2 Sat by Pulse Oximetry (%) 93 L 11/12/16 21:00 Constitutional: Yes: Cachectic Neck: Yes: Supple Cardiovascular: Yes: WNL, Regular Rate and Rhythm Respiratory: Yes: Other (Decreased bs rt) Gastrointestinal: Yes: WNL, Normal Bowel Sounds, Soft Labs: CBC, BMP 11/11/16 05:35 11/11/16 05:35 INR, PTT INR 1.23 (0.82-1.09) H 11/09/16 18:45 Problem List - Problems (1) Chest pain Assessment/Plan: Atypical vs pain malignancy ?Shingles vs postobstructive pneumonia Cont acyclovir Cont IV zosyn Code(s): R07.9 - CHEST PAIN, UNSPECIFIED Qualifiers: Chest pain type: chest pain on breathing Qualified Code(s): R07.1 - Chest pain on breathing (2) Primary lung adenocarcinoma Assessment/Plan: Cont pain management w/ MS contin/IV morphine Code(s): C34.90 - MALIGNANT NEOPLASM OF UNSP PART OF UNSP BRONCHUS OR LUNG Qualifiers: Laterality: right Qualified Code(s): C34.91 - Malignant neoplasm of unspecified part of right bronchus or lung (3) Pancytopenia Assessment/Plan: Cont to monitor counts Code(s): D61.818 - OTHER PANCYTOPENIA (4) COPD (chronic obstructive pulmonary disease) Code(s): J44.9 - CHRONIC OBSTRUCTIVE PULMONARY DISEASE, UNSPECIFIED Qualifiers : COPD type: unspecified COPD Qualified Code(s): J44.9 - Chronic obstructive pulmonary disease, unspecified (5) Hypothyroidism Code(s): E03.9 - HYPOTHYROIDISM, UNSPECIFIED Qualifiers: Hypothyroidism type: unspecified Qualified Code(s): E03.9 - Hypothyroidism, unspecified (6) Pericardial effusion Code(s): I31.3 - PERICARDIAL EFFUSION (NONINFLAMMATORY)
[2016-11-13] MEDS: PIPERACILLIN/TAZOB 4.5 GM/100 ML PRE-DOCKED IVPB SCH ×3 (00:59→18:46)
[2016-11-13] MEDS: morphine CARPU-JECT 2 MG/1 ML DISP.SYRIN IVPUSH PRN ×2 (02:08→15:35)
[2016-11-13] MEDS: valACYclovir HCL 500 MG TABLET (FP) PO SCH ×3 (06:14→21:09)
[2016-11-13] MEDS: LEVOTHYROXINE NA 100 MCG TABLET (FP) PO SCH (06:15)
[2016-11-13] MEDS: guaiFENesin 200 MG/10 ML 10 ML UNIT-DOSE CUPS PO PRN ×2 (06:17→09:18)
[2016-11-13 08:12] LABS: MEAN CELL VOLUME 60.3 fl (80-96); MEAN PLT VOLUME 8.3 fl (7.5-11.1); PLATELET COUNT 89 K/MM3 (134-434); RDW 14.6 % (11.9-15.9); WHITE BLOOD COUNT 14.4 K/mm3 (4.0-10.0)
[2016-11-13 08:18] LABS: ALBUMIN 2.2 g/dl (3.4-5.0); ANION GAP 10 (8-16); CALCIUM 7.8 mg/dL (8.5-10.1); CO2 30 mmol/L (21-32); GLUCOSE,RANDOM 76 mg/dL (74-106)
[2016-11-13 08:23] LABS: ALK PHOS 270 U/L (45-117); BILIRUBIN,TOTAL 0.3 mg/dL (0.2-1.0); SGOT/AST 37 U/L (15-37); SGPT/ALT 38 U/L (12-78); TOT PROT 5.5 g/dl (6.4-8.2)
[2016-11-13 08:30] LABS: MCH 19.3 pg (25.7-33.7)
[2016-11-13] MEDS: DOCUSATE SODIUM 100 MG CAPSULE (FP) PO PRN (09:17)
[2016-11-13] MEDS: morphine SO4 SUSTAINED ACTING 15 MG TABLET.SA PO SCH ×2 (09:17→21:08)
[2016-11-13] MEDS: HEPARIN NA (PORCINE) 5,000 UNITS/ML 1ML VIAL SQ SCH ×2 (09:18→21:08)
[2016-11-13] MEDS: NICOTINE 14 MG/24 HOURS TOPICAL PATCH TD SCH (09:18)
[2016-11-13 10:14] LABS: TOXIC GRANULATION 3+
[2016-11-13] MEDS: FOLIC ACID 1 MG TABLET (FP) PO SCH (10:20)
[2016-11-13] MEDS: POLYETHYLENE GLYCOL 3350 119 GM BTL PO SCH (10:25)
[2016-11-13] MEDS: guaiFENesin 600 MG TABLET.ER (FP) PO SCH ×2 (11:15→21:09)
--- NOTE | 2016-11-13 11:33 | PN ---
Progress Note (short form) - Note Progress Note: Patient seen and examined Pain in right upper anterior chest improved. Still with much secretions and difficulty bringing up secretions Last Vital Signs Temp Pulse Resp BP Pulse Ox 98.3 F 84 20 92/62 93 L 11/13/16 05:37 11/12/16 21:15 11/13/16 05:37 11/13/16 05:37 11/12/16 21:00 HEENT: SILVINO, EOM Intact Oropharynx: No thrush, No mucositis Cor: RSR, No murmurs, No gallops Lungs: decreased breath sounds RLL posteriorly Abd: Soft, Normal bowel sounds, No organomegaly Ext:No significant edema Skin: improvement in posterior right upper back rash with drying of vessicles CBC, BMP 11/13/16 06:25 11/13/16 06:25 Current Medications Generic Name Dose Route Start Last Admin Trade Name Freq PRN Reason Stop Dose Admin Docusate Sodium 100 mg 11/11/16 16:14 11/13/16 09:17 Colace - PO 100 mg BID PRN Administration CONSTIPATION Folic Acid 1 mg 11/10/16 10:00 11/12/16 09:50 Folic Acid - PO 1 mg DAILY [facility] Administration Guaifenesin 10 ml 11/11/16 16:12 11/13/16 09:18 Robitussin - PO 10 ml Q4H PRN Administration COUGH Heparin Sodium (Porcine) 5,000 unit 11/10/16 10:00 11/13/16 09:18 Heparin - SQ 5,000 unit BID [facility] Administration Hydroxyzine HCl 25 mg 11/12/16 09:53 11/12/16 15:25 Atarax - PO 25 mg Q6H PRN Administration FOR ITCHING Levothyroxine Sodium 100 mcg 11/11/16 07:00 11/13/16 06:15 Synthroid - PO 100 mcg AM [facility] Administration Morphine Sulfate 15 mg 11/10/16 22:00 11/13/16 09:17 Ms Contin - PO 15 mg BID [facility] Administration Morphine Sulfate 2 mg 11/12/16 21:40 11/13/16 02:08 Morphine Injection - IVPUSH 2 mg Q6H PRN Administration PAIN Nicotine 14 mg 11/10/16 10:00 11/13/16 09:18 Nicoderm Patch - TD 14 mg DAILY [facility] Administration Piperacillin Sod/Tazobactam Sod 4.5 gm 11/10/16 18:00 11/13/16 09:17 Zosyn 4.5gm Ivpb (Pre-Docked) IVPB 4.5 gm Q8H-IV [facility] Administration Polyethylene Glycol 17 gm 11/13/16 10:00 Miralax (For Daily Use) - PO DAILY [facility] Senna 2 tab 11/11/16 16:14 11/12/16 09:52 Senna - PO 2 tab HS PRN Administration CONSTIPATION Valacyclovir HCl 1,000 mg 11/10/16 22:00 11/13/16 06:14 Valtrex - PO 1,000 mg TID [facility] Administration Impression: Adenoca of lung RUL with opacification of Right upper lobe ?pneumonia-post obstructive- on zosyn Neutropenia- resolved ; d/c granix Hyponatremia- serum and urine osm against SIADH Hypothyroidism -check TSH on 100 mcg of synthroid Shingles- improved- less pain - continue valtrex Pericardial tamponade- seen by cardiology- repeat ECHO in one month Hypokalemia- to replete Pain management- improved on MS and IV morphine - to change to p.o. oxycodone Problem List - Problems (1) Atelectasis Code(s): J98.11 - ATELECTASIS (2) Lung cancer Code(s): C34.90 - MALIGNANT NEOPLASM OF UNSP PART OF UNSP BRONCHUS OR LUNG Qualifiers: Laterality: right (3) Pericardial effusion Code(s): I31.3 - PERICARDIAL EFFUSION (NONINFLAMMATORY) (4) Anemia Code(s): D64.9 - ANEMIA, UNSPECIFIED Qualifiers: Bone marrow failure anemia type: pancytopenia, antineoplastic chemotherapy- induced Qualified Code(s): D61.810 - Antineoplastic chemotherapy induced pancytopenia (5) Hypothyroidism Code(s): E03.9 - HYPOTHYROIDISM, UNSPECIFIED Qualifiers: Hypothyroidism type: unspecified Qualified Code(s): E03.9 - Hypothyroidism, unspecified (6) Pneumonia Code(s): J18.9 - PNEUMONIA, UNSPECIFIED ORGANISM Qualifiers: Pneumonia type: due to unspecified organism Laterality: right Lung location: lower lobe of lung Qualified Code(s): J18.9 - Pneumonia, unspecified organism (7) Neutropenia Code(s): D70.9 - NEUTROPENIA, UNSPECIFIED (8) Rash Code(s): R21 - RASH AND OTHER NONSPECIFIC SKIN ERUPTION (9) Hyponatremia Code(s): E87.1 - HYPO-OSMOLALITY AND HYPONATREMIA
[2016-11-13] MEDS ORDERED: POTASSIUM CHLORIDE TABS 20 MEQ TABLET.ER (FP) PO ONE (13:00)
--- NOTE | 2016-11-13 13:25 | PN ---
Progress Note (short form) - Note Progress Note: Radiation Oncology Rt upper chest pain improving, still has mid chest discomfort and congestion. No bronchoscopy planned per pulmonary. Neutropenia resolved s/p BM support. Worsening thrombocytopenia - 89k. Cont empiric PNA tx for postobstructive pneumonic process, valtrex for zoster. Cont analgesics. Given progressive local disease and postobstructive sequelae, would add thoracic RT for local control. May proceed when discharged. Will need to monitor Plt count.
--- NOTE | 2016-11-13 15:31 | PN ---
Progress Note, Physician History of Present Illness: pulmonary feeling better,cp improving,less dyspneic - Current Medication List Current Medications: Active Medications Docusate Sodium (Colace -) 100 mg PO BID PRN PRN Reason: CONSTIPATION Last Admin: 11/13/16 09:17 Dose: 100 mg Folic Acid (Folic Acid -) 1 mg PO DAILY [facility] Last Admin: 11/13/16 10:20 Dose: 1 mg Guaifenesin (Mucinex -) 600 mg PO BID [facility] Heparin Sodium (Porcine) (Heparin -) 5,000 unit SQ BID [facility] Last Admin: 11/13/16 09:18 Dose: 5,000 unit Hydroxyzine HCl (Atarax -) 25 mg PO Q6H PRN PRN Reason: FOR ITCHING Last Admin: 11/12/16 15:25 Dose: 25 mg Levothyroxine Sodium (Synthroid -) 100 mcg PO AM [facility] Last Admin: 11/13/16 06:15 Dose: 100 mcg Morphine Sulfate (Ms Contin -) 15 mg PO BID [facility] Last Admin: 11/13/16 09:17 Dose: 15 mg Morphine Sulfate (Morphine Injection -) 2 mg IVPUSH Q6H PRN PRN Reason: PAIN Last Admin: 11/13/16 02:08 Dose: 2 mg Nicotine (Nicoderm Patch -) 14 mg TD DAILY [facility] Last Admin: 11/13/16 09:18 Dose: 14 mg Oxycodone HCl (Roxicodone -) 10 mg PO Q4H PRN PRN Reason: PAIN Piperacillin Sod/Tazobactam Sod (Zosyn 4.5gm Ivpb (Pre-Docked)) 4.5 gm IVPB Q8H -IV [facility] Last Admin: 11/13/16 09:17 Dose: 4.5 gm Polyethylene Glycol (Miralax (For Daily Use) -) 17 gm PO DAILY [facility] Last Admin: 11/13/16 10:25 Dose: 17 mg Senna (Senna -) 2 tab PO HS PRN PRN Reason: CONSTIPATION Last Admin: 11/12/16 09:52 Dose: 2 tab Valacyclovir HCl (Valtrex -) 1,000 mg PO TID [facility] Last Admin: 11/13/16 06:14 Dose: 1,000 mg - Objective Vital Signs: Vital Signs Temperature 97.9 F 11/13/16 14:14 Pulse Rate 84 11/13/16 14:14 Respiratory Rate 20 11/13/16 14:14 Blood Pressure 98/60 11/13/16 14:14 O2 Sat by Pulse Oximetry (%) 96 11/13/16 09:00 Constitutional: Yes: Well Nourished, Calm Eyes: Yes: WNL HENT: Yes: WNL Neck: Yes: WNL Cardiovascular: Yes: Regular Rate and Rhythm, S1, S2 Respiratory: Yes: Diminished (decreased bs on r) Gastrointestinal: Yes: Normal Bowel Sounds, Soft Extremities: Yes: WNL Edema: No Labs: CBC, BMP 11/13/16 06:25 11/13/16 06:25 INR, PTT INR 1.23 (0.82-1.09) H 11/09/16 18:45 Assessment/Plan Problem List - Problems (1) Primary lung adenocarcinoma Code(s): C34.90 - MALIGNANT NEOPLASM OF UNSP PART OF UNSP BRONCHUS OR LUNG (2) Pneumonia Code(s): J18.9 - PNEUMONIA, UNSPECIFIED ORGANISM Qualifiers: Pneumonia type: due to unspecified organism Laterality: right Lung location: lower lobe of lung Qualified Code(s): J18.9 - Pneumonia, unspecified organism (3) Pericardial effusion Code(s): I31.3 - PERICARDIAL EFFUSION (NONINFLAMMATORY) (4) COPD (chronic obstructive pulmonary disease) Code(s): J44.9 - CHRONIC OBSTRUCTIVE PULMONARY DISEASE, UNSPECIFIED Qualifiers : COPD type: unspecified COPD Qualified Code(s): J44.9 - Chronic obstructive pulmonary disease, unspecified (5) Atelectasis Code(s): J98.11 - ATELECTASIS Assessment/Plan Chest pain improving NSCLC (Adeno) COPD Atelectasis Recent Chemo - antibiotics per ID - pain control - chest PT - incentive spirometry - inhaled bronchodilators - can consider inspection bronchoscopy to evaluate whether obstruction due to tumor vs mucous plugging - DVT prophylaxis - f/u chest x-rays DR ARTEAGA
[2016-11-13] MEDS ORDERED: PT OWN MED DRAWER 7, Y5N ONE ×2 (15:44→18:13)
[2016-11-13] MEDS: hydrOXYzine HCL 25 MG TABLET (FP) PO PRN (15:47)
--- NOTE | 2016-11-13 16:07 | PN ---
Progress Note (short form) - Note Progress Note: feels better neutropenia resolved Vital Signs Period Temp Pulse Resp BP Sys/Brandon Pulse Ox Last 24 Hr 97.7 F-98.6 F 83-84 18-20 92-129/60-86 93-96 cor-rrr no thrush lungs decreased bs on RIght abd soft,nt ext no edema lesions dry on back CBC, BMP 11/13/16 06:25 11/13/16 06:25 Microbiology 11/10/16 16:00 Sputum - Expectorated Gram Stain - Final 11/10/16 16:00 Sputum - Expectorated Sputum Culture - Final Yeast Like Organism 11/10/16 08:51 Blood - Peripheral Venous Blood Culture - Preliminary NO GROWTH OBTAINED AFTER 72 HOURS, INCUBATION TO CONTINUE FOR 2 DAYS. 11/10/16 08:45 Blood - Peripheral Venous Blood Culture - Preliminary NO GROWTH OBTAINED AFTER 72 HOURS, INCUBATION TO CONTINUE FOR 2 DAYS. 11/10/16 16:00 Urine For Antigen Detection Legionella Antigen - Final 11/10/16 16:00 Urine For Antigen Detection Streptococcus pneumoniae Antigen (M - Final Current Medications Docusate Sodium (Colace -) 100 mg PO BID PRN PRN Reason: CONSTIPATION Last Admin: 11/13/16 09:17 Dose: 100 mg Folic Acid (Folic Acid -) 1 mg PO DAILY [facility] Last Admin: 11/13/16 10:20 Dose: 1 mg Guaifenesin (Mucinex -) 600 mg PO BID [facility] Last Admin: 11/13/16 11:15 Dose: 600 mg Heparin Sodium (Porcine) (Heparin -) 5,000 unit SQ BID [facility] Last Admin: 11/13/16 09:18 Dose: 5,000 unit Hydroxyzine HCl (Atarax -) 25 mg PO Q6H PRN PRN Reason: FOR ITCHING Last Admin: 11/13/16 15:47 Dose: 25 mg Levothyroxine Sodium (Synthroid -) 100 mcg PO AM [facility] Last Admin: 11/13/16 06:15 Dose: 100 mcg Morphine Sulfate (Ms Contin -) 15 mg PO BID [facility] Last Admin: 11/13/16 09:17 Dose: 15 mg Morphine Sulfate (Morphine Injection -) 2 mg IVPUSH Q6H PRN PRN Reason: PAIN Last Admin: 11/13/16 15:35 Dose: 2 mg Nicotine (Nicoderm Patch -) 14 mg TD DAILY [facility] Last Admin: 11/13/16 09:18 Dose: 14 mg Oxycodone HCl (Roxicodone -) 10 mg PO Q4H PRN PRN Reason: PAIN Piperacillin Sod/Tazobactam Sod (Zosyn 4.5gm Ivpb (Pre-Docked)) 4.5 gm IVPB Q8H -IV [facility] Last Admin: 11/13/16 09:17 Dose: 4.5 gm Polyethylene Glycol (Miralax (For Daily Use) -) 17 gm PO DAILY [facility] Last Admin: 11/13/16 10:25 Dose: 17 mg Senna (Senna -) 2 tab PO HS PRN PRN Reason: CONSTIPATION Last Admin: 11/12/16 09:52 Dose: 2 tab Valacyclovir HCl (Valtrex -) 1,000 mg PO TID [facility] Last Admin: 11/13/16 14:40 Dose: 1,000 mg a/p poorly differentiated adenocancer- s/p chemo neutropenia resolved d/c isolation continue zosyn pain control zoster drying complete 7 days valtrex
[2016-11-13] MEDS: ALBUTEROL SO4 0.083% IH SOL 2.5 MG/3 ML VIAL.NEB. NEB SCH ×2 (19:29→22:59)
--- NOTE | 2016-11-13 20:50 | PN ---
Progress Note, Physician - Current Medication List Current Medications: Active Medications Albuterol Sulfate (Ventolin 0.083% Nebulizer Soln -) 1 amp NEB QIDR [facility] Last Admin: 11/13/16 19:29 Dose: 1 amp Docusate Sodium (Colace -) 100 mg PO BID PRN PRN Reason: CONSTIPATION Last Admin: 11/13/16 09:17 Dose: 100 mg Folic Acid (Folic Acid -) 1 mg PO DAILY [facility] Last Admin: 11/13/16 10:20 Dose: 1 mg Guaifenesin (Mucinex -) 600 mg PO BID [facility] Last Admin: 11/13/16 11:15 Dose: 600 mg Heparin Sodium (Porcine) (Heparin -) 5,000 unit SQ BID [facility] Last Admin: 11/13/16 09:18 Dose: 5,000 unit Hydroxyzine HCl (Atarax -) 25 mg PO Q6H PRN PRN Reason: FOR ITCHING Last Admin: 11/13/16 15:47 Dose: 25 mg Levothyroxine Sodium (Synthroid -) 100 mcg PO AM [facility] Last Admin: 11/13/16 06:15 Dose: 100 mcg Morphine Sulfate (Ms Contin -) 15 mg PO BID [facility] Last Admin: 11/13/16 09:17 Dose: 15 mg Morphine Sulfate (Morphine Injection -) 2 mg IVPUSH Q6H PRN PRN Reason: PAIN Last Admin: 11/13/16 15:35 Dose: 2 mg Nicotine (Nicoderm Patch -) 14 mg TD DAILY [facility] Last Admin: 11/13/16 09:18 Dose: 14 mg Oxycodone HCl (Roxicodone -) 10 mg PO Q4H PRN PRN Reason: PAIN Piperacillin Sod/Tazobactam Sod (Zosyn 4.5gm Ivpb (Pre-Docked)) 4.5 gm IVPB Q8H -IV [facility] Last Admin: 11/13/16 18:46 Dose: 4.5 gm Polyethylene Glycol (Miralax (For Daily Use) -) 17 gm PO DAILY [facility] Last Admin: 11/13/16 10:25 Dose: 17 mg Senna (Senna -) 2 tab PO HS PRN PRN Reason: CONSTIPATION Last Admin: 11/12/16 09:52 Dose: 2 tab Valacyclovir HCl (Valtrex -) 1,000 mg PO TID [facility] Last Admin: 11/13/16 14:40 Dose: 1,000 mg - Objective Vital Signs: Vital Signs Temperature 97.9 F 11/13/16 17:26 Pulse Rate 80 11/13/16 17:26 Respiratory Rate 18 11/13/16 17:26 Blood Pressure 101/64 11/13/16 17:26 O2 Sat by Pulse Oximetry (%) 96 11/13/16 09:00 Constitutional: Yes: Cachectic Neck: Yes: Supple Cardiovascular: Yes: WNL, Regular Rate and Rhythm Respiratory: Yes: Other (Decreased bs b/l) Gastrointestinal: Yes: WNL, Normal Bowel Sounds, Soft, Abdomen, Obese Labs: CBC, BMP 11/13/16 06:25 11/13/16 06:25 INR, PTT INR 1.23 (0.82-1.09) H 11/09/16 18:45 Problem List - Problems (1) Chest pain Assessment/Plan: Atypical vs pain of malignancy ?Shingles Cont acyclovir Cont MS contin DC IV morphine Code(s): R07.9 - CHEST PAIN, UNSPECIFIED Qualifiers: Chest pain type: chest pain on breathing Qualified Code(s): R07.1 - Chest pain on breathing (2) Primary lung adenocarcinoma Assessment/Plan: ?Postobstructive oneumonia Cont IV zosyn WBC second to dosing of neupogen Outpt RT Code(s): C34.90 - MALIGNANT NEOPLASM OF UNSP PART OF UNSP BRONCHUS OR LUNG Qualifiers: Laterality: right Qualified Code(s): C34.91 - Malignant neoplasm of unspecified part of right bronchus or lung (3) COPD (chronic obstructive pulmonary disease) Code(s): J44.9 - CHRONIC OBSTRUCTIVE PULMONARY DISEASE, UNSPECIFIED Qualifiers : COPD type: unspecified COPD Qualified Code(s): J44.9 - Chronic obstructive pulmonary disease, unspecified (4) Hypothyroidism Assessment/Plan: Cont levothyroxine Code(s): E03.9 - HYPOTHYROIDISM, UNSPECIFIED Qualifiers: Hypothyroidism type: unspecified Qualified Code(s): E03.9 - Hypothyroidism, unspecified (5) Pericardial effusion Assessment/Plan: Check echo in 1 month Code(s): I31.3 - PERICARDIAL EFFUSION (NONINFLAMMATORY)
[2016-11-14] MEDS: PIPERACILLIN/TAZOB 4.5 GM/100 ML PRE-DOCKED IVPB SCH ×3 (01:11→18:04)
[2016-11-14] MEDS: oxyCODONE HCL 5 MG TABLET PO PRN ×3 (01:20→15:39)
[2016-11-14] MEDS: ALBUTEROL SO4 0.083% IH SOL 2.5 MG/3 ML VIAL.NEB. NEB SCH ×3 (05:35→18:31)
[2016-11-14] MEDS: LEVOTHYROXINE NA 125 MCG TABLET (FP) PO SCH (06:11)
[2016-11-14] MEDS: valACYclovir HCL 500 MG TABLET (FP) PO SCH ×3 (06:11→21:17)
[2016-11-14 07:25] LABS: MCHC 31.9 g/dl (32.0-35.9); MEAN CELL VOLUME 60.5 fl (80-96); MEAN PLT VOLUME 8.4 fl (7.5-11.1); PLATELET COUNT 70 K/MM3 (134-434); RDW 14.9 % (11.9-15.9); WHITE BLOOD COUNT 14.9 K/mm3 (4.0-10.0)
[2016-11-14 07:33] LABS: MCH 19.3 pg (25.7-33.7)
[2016-11-14 07:54] LABS: ANION GAP 10 (8-16); BILIRUBIN,TOTAL 0.2 mg/dL (0.2-1.0); CALCIUM 7.6 mg/dL (8.5-10.1); CO2 33 mmol/L (21-32); CREATININE 0.9 mg/dL (0.7-1.3); GLUCOSE,RANDOM 76 mg/dL (74-106); MAGNESIUM 1.4 mg/dL (1.8-2.4); SGOT/AST 23 U/L (15-37); SGPT/ALT 29 U/L (12-78); TOT PROT 5.1 g/dl (6.4-8.2)
[2016-11-14 07:55] LABS: ALK PHOS 214 U/L (45-117)
[2016-11-14 09:43] LABS: ANISOCYTOSIS 2+; HYPOCHROMIA 2+; MICROCYTOSIS 2+; PLATELET COMMENT2 NO CLOTTING DETECTED; PLATELET ESTIMATE DECREASED (NORMAL); POIKILOCYTOSIS 2+; POLYCHROMASIA 2+; SPHEROCYTE 1+
--- NOTE | 2016-11-14 10:57 | PN ---
Physical Exam: SUBJECTIVE: Patient seen and examined. He complains of chest tightness and difficulty coughing up phlegm. OBJECTIVE: Vital Signs Period Temp Pulse Resp BP Sys/Brandon Pulse Ox Last 24 Hr 97.9 F-98.7 F 80-88 18-20 95-112/57-69 94 GENERAL: The patient is awake, alert, and fully oriented, in no acute distress. NECK: Trachea midline, full range of motion, supple. LUNGS: Rhonchi on right. HEART: Regular rate and rhythm, S1, S2 without murmur, rub or gallop. ABDOMEN: Soft, nontender, nondistended, normoactive bowel sounds, no guarding, no rebound, no hepatosplenomegaly, no masses. EXTREMITIES: 2+ pulses, warm, well-perfused, no edema, (+) clubbing Laboratory Results - last 24 hr 11/14/16 11/14/16 06:00 06:00 WBC 14.9 H RBC 4.37 Hgb 8.5 L Hct 26.5 L MCV 60.5 L MCHC 31.9 L RDW 14.9 Plt Count 70 L D MPV 8.4 Neutrophils % 70.0 Lymphocytes % 16.0 Monocytes % 9.0 Eosinophils % 1.0 Band Neutrophils 4.0 D Platelet Estimate Decreased Platelet Comment No clotting detected Polychromasia 2+ Hypochromic-Microcytic 2+ Poikilocytosis 2+ Anisocytosis 2+ Microcytosis 2+ Spherocytes 1+ Sodium 135 L Potassium 3.2 L Chloride 92 L Carbon Dioxide 33 H Anion Gap 10 BUN 7 D Creatinine 0.9 Creat Clearance w eGFR > 60 Random Glucose 76 Calcium 7.6 L Magnesium 1.4 L Total Bilirubin 0.2 D AST 23 D ALT 29 D Alkaline Phosphatase 214 H D Total Protein 5.1 L Albumin 2.0 L Active Medications Generic Name Dose Route Start Last Admin Trade Name Freq PRN Reason Stop Dose Admin Albuterol Sulfate 1 amp 11/13/16 18:00 11/14/16 05:35 Ventolin 0.083% Nebulizer Soln - NEB 1 amp QIDR MARC Administration Docusate Sodium 100 mg 11/11/16 16:14 11/13/16 09:17 Colace - PO 100 mg BID PRN Administration CONSTIPATION Folic Acid 1 mg 11/10/16 10:00 11/13/16 10:20 Folic Acid - PO 1 mg DAILY MARC Administration Guaifenesin 600 mg 11/13/16 11:45 11/13/16 21:09 Mucinex - PO 600 mg BID MARC Administration Heparin Sodium (Porcine) 5,000 unit 11/10/16 10:00 11/13/16 21:08 Heparin - SQ 5,000 unit BID MARC Administration Hydroxyzine HCl 25 mg 11/12/16 09:53 11/13/16 15:47 Atarax - PO 25 mg Q6H PRN Administration FOR ITCHING Levothyroxine Sodium 125 mcg 11/14/16 07:00 11/14/16 06:11 Synthroid - PO 125 mcg AM MARC Administration Morphine Sulfate 15 mg 11/10/16 22:00 11/13/16 21:08 Ms Contin - PO 15 mg BID MARC Administration Nicotine 14 mg 11/10/16 10:00 11/13/16 09:18 Nicoderm Patch - TD 14 mg DAILY MARC Administration Oxycodone HCl 10 mg 11/13/16 11:34 11/14/16 01:20 Roxicodone - PO 10 mg Q4H PRN Administration PAIN Piperacillin Sod/Tazobactam Sod 4.5 gm 11/10/16 18:00 11/14/16 01:11 Zosyn 4.5gm Ivpb (Pre-Docked) IVPB 4.5 gm Q8H-IV MARC Administration Polyethylene Glycol 17 gm 11/13/16 10:00 11/13/16 10:25 Miralax (For Daily Use) - PO 17 mg DAILY MARC Administration Senna 2 tab 11/11/16 16:14 11/12/16 09:52 Senna - PO 2 tab HS PRN Administration CONSTIPATION Valacyclovir HCl 1,000 mg 11/10/16 22:00 11/14/16 06:11 Valtrex - PO 1,000 mg TID MARC Administration ASSESSMENT/PLAN: 1. Adenocarcinoma of the lung with possible post-obstructive pneumonia - Continue Zosyn, Albuterol nebs - Robitussin as needed - Pain controlled with MS Contin 2. Herpes zoster - Improving - Continue Valtrex 3. COPD 4. Hypothyroidism - Continue Synthroid 5. Pericardial effusion - Plan to repeat echo in 1 month 6. Hyponatremia - Improving 7. Hypokalemia - Replete potassium 8. Hypomagnesemia - Supplement magnesium 9. Tobacco use disorder - Continue nicotine patch Visit type - Emergency Visit Emergency Visit: Yes ED Registration Date: 11/10/16 Care time: The patient presented to the Emergency Department on the above date and was hospitalized for further evaluation of their emergent condition. - New Patient This patient is new to me today: Yes Date on this admission: 11/14/16 - Critical Care Critical Care patient: No - Discharge Referral Referred to [facility] Med P.C.: No
[2016-11-14] MEDS: NICOTINE 14 MG/24 HOURS TOPICAL PATCH TD SCH (10:59)
[2016-11-14] MEDS: morphine SO4 SUSTAINED ACTING 15 MG TABLET.SA PO SCH ×2 (11:00→21:17)
[2016-11-14] MEDS: guaiFENesin 600 MG TABLET.ER (FP) PO SCH (11:00)
[2016-11-14] MEDS: POLYETHYLENE GLYCOL 3350 119 GM BTL PO SCH (11:00)
[2016-11-14] MEDS: HEPARIN NA (PORCINE) 5,000 UNITS/ML 1ML VIAL SQ SCH ×2 (11:00→21:16)
[2016-11-14] MEDS: FOLIC ACID 1 MG TABLET (FP) PO SCH (11:00)
--- NOTE | 2016-11-14 13:12 | PN ---
Progress Note, Physician History of Present Illness: PULMONARY ALERT,NO DISTRESS ,CHEST PAIN SIGNIFICANTLY IMPROVED - Current Medication List Current Medications: Active Medications Albuterol Sulfate (Ventolin 0.083% Nebulizer Soln -) 1 amp NEB QIDR [facility] Last Admin: 11/14/16 05:35 Dose: 1 amp Docusate Sodium (Colace -) 100 mg PO BID PRN PRN Reason: CONSTIPATION Last Admin: 11/13/16 09:17 Dose: 100 mg Folic Acid (Folic Acid -) 1 mg PO DAILY [facility] Last Admin: 11/14/16 11:00 Dose: 1 mg Guaifenesin (Robitussin -) 10 ml PO Q4H PRN PRN Reason: COUGH Heparin Sodium (Porcine) (Heparin -) 5,000 unit SQ BID [facility] Last Admin: 11/14/16 11:00 Dose: 5,000 unit Hydroxyzine HCl (Atarax -) 25 mg PO Q6H PRN PRN Reason: FOR ITCHING Last Admin: 11/13/16 15:47 Dose: 25 mg Levothyroxine Sodium (Synthroid -) 125 mcg PO AM [facility] Last Admin: 11/14/16 06:11 Dose: 125 mcg Morphine Sulfate (Ms Contin -) 15 mg PO BID [facility] Last Admin: 11/14/16 11:00 Dose: 15 mg Nicotine (Nicoderm Patch -) 14 mg TD DAILY [facility] Last Admin: 11/14/16 10:59 Dose: 14 mg Oxycodone HCl (Roxicodone -) 10 mg PO Q4H PRN PRN Reason: PAIN Last Admin: 11/14/16 11:05 Dose: 10 mg Piperacillin Sod/Tazobactam Sod (Zosyn 4.5gm Ivpb (Pre-Docked)) 4.5 gm IVPB Q8H -IV [facility] Last Admin: 11/14/16 10:58 Dose: 4.5 gm Polyethylene Glycol (Miralax (For Daily Use) -) 17 gm PO DAILY [facility] Last Admin: 11/14/16 11:00 Dose: Not Given Senna (Senna -) 2 tab PO HS PRN PRN Reason: CONSTIPATION Last Admin: 11/12/16 09:52 Dose: 2 tab Valacyclovir HCl (Valtrex -) 1,000 mg PO TID [facility] Last Admin: 11/14/16 06:11 Dose: 1,000 mg - Objective Vital Signs: Vital Signs Temperature 98.7 F 11/14/16 06:00 Pulse Rate 83 11/14/16 06:00 Respiratory Rate 18 11/14/16 06:00 Blood Pressure 95/57 11/14/16 06:00 O2 Sat by Pulse Oximetry (%) 94 L 11/13/16 21:00 Constitutional: Yes: Calm, Thin Eyes: Yes: WNL HENT: Yes: WNL Neck: Yes: WNL Cardiovascular: Yes: Regular Rate and Rhythm, S1, S2 Respiratory: Yes: Diminished (DECREASED BS ON R) Extremities: Yes: WNL, Other (CLUBBING) Labs: CBC, BMP 11/14/16 06:00 11/14/16 06:00 INR, PTT INR 1.23 (0.82-1.09) H 11/09/16 18:45 Assessment/Plan Problem List - Problems (1) Primary lung adenocarcinoma Code(s): C34.90 - MALIGNANT NEOPLASM OF UNSP PART OF UNSP BRONCHUS OR LUNG (2) Pneumonia Code(s): J18.9 - PNEUMONIA, UNSPECIFIED ORGANISM Qualifiers: Pneumonia type: due to unspecified organism Laterality: right Lung location: lower lobe of lung Qualified Code(s): J18.9 - Pneumonia, unspecified organism (3) Pericardial effusion Code(s): I31.3 - PERICARDIAL EFFUSION (NONINFLAMMATORY) (4) COPD (chronic obstructive pulmonary disease) Code(s): J44.9 - CHRONIC OBSTRUCTIVE PULMONARY DISEASE, UNSPECIFIED Qualifiers : COPD type: unspecified COPD Qualified Code(s): J44.9 - Chronic obstructive pulmonary disease, unspecified (5) Atelectasis Code(s): J98.11 - ATELECTASIS Assessment/Plan Chest pain improving NSCLC (Adeno) COPD Atelectasis Recent Chemo - antibiotics per ID - pain control - chest PT - incentive spirometry - inhaled bronchodilators - DVT prophylaxis - f/u chest x-rays DR ARTEAGA
--- NOTE | 2016-11-14 14:42 | PN ---
Progress Note (short form) - Note Progress Note: Oncology follow-up note Patient seen and examined at bedside. He feels well overall today, is pleasanA/ P t and conversant. He was told he will be discharged? He is not happy with this plan. Last Vital Signs Temp Pulse Resp BP Pulse Ox 98.8 F 81 18 106/63 94 L 11/14/16 14:39 11/14/16 14:39 11/14/16 14:39 11/14/16 14:39 11/13/16 21:00 Physical Exam : HEENT: SILVINO, EOM Intact Oropharynx: No thrush, No mucositis Cor: RSR, No murmurs, No gallops Lungs: decreased breath sounds RLL posteriorly Abd: Soft, Normal bowel sounds, No organomegaly Ext:No significant edema Skin: improvement in posterior right upper back rash with drying of vessicles CBC, BMP 11/14/16 06:00 11/14/16 06:00 Current Medications Generic Name Dose Route Start Last Admin Trade Name Freq PRN Reason Stop Dose Admin Albuterol Sulfate 1 amp 11/13/16 18:00 11/14/16 12:30 Ventolin 0.083% Nebulizer Soln - NEB 1 amp QIDR MARC Administration Docusate Sodium 100 mg 11/11/16 16:14 11/13/16 09:17 Colace - PO 100 mg BID PRN Administration CONSTIPATION Folic Acid 1 mg 11/10/16 10:00 11/14/16 11:00 Folic Acid - PO 1 mg DAILY MARC Administration Guaifenesin 10 ml 11/14/16 10:58 Robitussin - PO Q4H PRN COUGH Heparin Sodium (Porcine) 5,000 unit 11/10/16 10:00 11/14/16 11:00 Heparin - SQ 5,000 unit BID MARC Administration Hydroxyzine HCl 25 mg 11/12/16 09:53 11/13/16 15:47 Atarax - PO 25 mg Q6H PRN Administration FOR ITCHING Levothyroxine Sodium 125 mcg 11/14/16 07:00 11/14/16 06:11 Synthroid - PO 125 mcg AM MARC Administration Morphine Sulfate 15 mg 11/10/16 22:00 11/14/16 11:00 Ms Contin - PO 15 mg BID MARC Administration Nicotine 14 mg 11/10/16 10:00 11/14/16 10:59 Nicoderm Patch - TD 14 mg DAILY MARC Administration Oxycodone HCl 10 mg 11/13/16 11:34 11/14/16 11:05 Roxicodone - PO 10 mg Q4H PRN Administration PAIN Piperacillin Sod/Tazobactam Sod 4.5 gm 11/10/16 18:00 11/14/16 10:58 Zosyn 4.5gm Ivpb (Pre-Docked) IVPB 4.5 gm Q8H-IV MARC Administration Polyethylene Glycol 17 gm 11/13/16 10:00 11/14/16 11:00 Miralax (For Daily Use) - PO Not Given DAILY MARC Senna 2 tab 11/11/16 16:14 11/12/16 09:52 Senna - PO 2 tab HS PRN Administration CONSTIPATION Valacyclovir HCl 1,000 mg 11/10/16 22:00 11/14/16 06:11 Valtrex - PO 1,000 mg TID MARC Administration A/P : 50 y/o male with adenoca of the left lung with RUL opacification -On Zosyn for post-obstructive pneumona -C1D13 of carboplatin/alimta today, counts hitting a alaina, continue to trend CBC daily -Zoster lesions improved, continue with valtrex 1000 mg TID -Hyponatremia- possible SIADH- check urine and serum osm -On synthroid for hypothyroidism -supportive care -continue current pain regimen
[2016-11-14] MEDS: guaiFENesin 200 MG/10 ML 10 ML UNIT-DOSE CUPS PO PRN ×2 (15:39→20:36)
[2016-11-14] MEDS ORDERED: PT OWN MED DRAWER 7, Y5N ONE (15:53)
[2016-11-14] MEDS: hydrOXYzine HCL 25 MG TABLET (FP) PO PRN (15:56)
[2016-11-14] MEDS ORDERED: MAGNESIUM SULF 50% (8.12 MEQ/2 ML-1 GM VIAL) IVPB ONE (16:05)
[2016-11-14] MEDS ORDERED: POTASSIUM CHLORIDE TABS 20 MEQ TABLET.ER (FP) PO ONE (16:06)
--- NOTE | 2016-11-14 23:35 | PN ---
Progress Note, Physician Chief Complaint: Cough intermittently History of Present Illness: Patient was seen and examined. Awake and alert. Chart was reviewed Denies chest pain or palpitation - Current Medication List Current Medications: Active Medications Albuterol Sulfate (Ventolin 0.083% Nebulizer Soln -) 1 amp NEB QIDR [facility] Last Admin: 11/14/16 18:31 Dose: 1 amp Docusate Sodium (Colace -) 100 mg PO BID PRN PRN Reason: CONSTIPATION Last Admin: 11/13/16 09:17 Dose: 100 mg Folic Acid (Folic Acid -) 1 mg PO DAILY [facility] Last Admin: 11/14/16 11:00 Dose: 1 mg Guaifenesin (Robitussin -) 10 ml PO Q4H PRN PRN Reason: COUGH Last Admin: 11/14/16 20:36 Dose: 10 ml Heparin Sodium (Porcine) (Heparin -) 5,000 unit SQ BID [facility] Last Admin: 11/14/16 21:16 Dose: 5,000 unit Hydroxyzine HCl (Atarax -) 25 mg PO Q6H PRN PRN Reason: FOR ITCHING Last Admin: 11/14/16 15:56 Dose: 25 mg Levothyroxine Sodium (Synthroid -) 125 mcg PO AM [facility] Last Admin: 11/14/16 06:11 Dose: 125 mcg Magnesium Oxide (Mag-Ox -) 400 mg PO BID [facility] Morphine Sulfate (Ms Contin -) 15 mg PO BID [facility] Last Admin: 11/14/16 21:17 Dose: 15 mg Nicotine (Nicoderm Patch -) 14 mg TD DAILY [facility] Last Admin: 11/14/16 10:59 Dose: 14 mg Oxycodone HCl (Roxicodone -) 10 mg PO Q4H PRN PRN Reason: PAIN Last Admin: 11/14/16 15:39 Dose: 10 mg Piperacillin Sod/Tazobactam Sod (Zosyn 4.5gm Ivpb (Pre-Docked)) 4.5 gm IVPB Q8H -IV [facility] Last Admin: 11/14/16 18:04 Dose: 4.5 gm Polyethylene Glycol (Miralax (For Daily Use) -) 17 gm PO DAILY [facility] Last Admin: 11/14/16 11:00 Dose: Not Given Senna (Senna -) 2 tab PO HS PRN PRN Reason: CONSTIPATION Last Admin: 11/12/16 09:52 Dose: 2 tab Valacyclovir HCl (Valtrex -) 1,000 mg PO TID MARC Last Admin: 11/14/16 21:17 Dose: 1,000 mg - Objective Vital Signs: Vital Signs Temperature 98.4 F 11/14/16 21:20 Pulse Rate 78 11/14/16 21:20 Respiratory Rate 20 11/14/16 21:20 Blood Pressure 123/70 11/14/16 21:20 O2 Sat by Pulse Oximetry (%) 98 11/14/16 21:00 Cardiovascular: Yes: Regular Rate and Rhythm, S1, S2 Respiratory: Yes: Diminished Gastrointestinal: Yes: Normal Bowel Sounds, Soft. No: Tenderness Edema: No Labs: CBC, BMP 11/14/16 06:00 11/14/16 06:00 Problem List - Problems (1) Lung cancer Code(s): C34.90 - MALIGNANT NEOPLASM OF UNSP PART OF UNSP BRONCHUS OR LUNG Qualifiers: Laterality: right (2) Obstructive pneumonia Code(s): J18.9 - PNEUMONIA, UNSPECIFIED ORGANISM (3) Pericardial effusion Code(s): I31.3 - PERICARDIAL EFFUSION (NONINFLAMMATORY) (4) Shortness of breath Code(s): R06.02 - SHORTNESS OF BREATH (5) Anemia Code(s): D64.9 - ANEMIA, UNSPECIFIED Qualifiers: Bone marrow failure anemia type: pancytopenia, antineoplastic chemotherapy- induced Qualified Code(s): D61.810 - Antineoplastic chemotherapy induced pancytopenia (6) COPD (chronic obstructive pulmonary disease) Code(s): J44.9 - CHRONIC OBSTRUCTIVE PULMONARY DISEASE, UNSPECIFIED Qualifiers : COPD type: unspecified COPD Qualified Code(s): J44.9 - Chronic obstructive pulmonary disease, unspecified (7) Hypothyroidism Code(s): E03.9 - HYPOTHYROIDISM, UNSPECIFIED Qualifiers: Hypothyroidism type: unspecified Qualified Code(s): E03.9 - Hypothyroidism, unspecified Assessment/Plan 1. Chest pain likely due to post obstructive pneumonia from progressive tumor enlargement vs mucous plugging 2. Pericardial effusion 3. RUL Stage IIIB NSCLC 3. COPD 4. Atelectasis 5. Hypothyroidism PLAN: 1. Empiric antibiotics 2. Bronchodilator, O2 and chest PT 3. Transthoracic echocardiography in 1 month to assess pericardial effusion 4. Chemotherapy per oncology Further plans are to follow Sang H. Katherin MD
[2016-11-15] MEDS: ALBUTEROL SO4 0.083% IH SOL 2.5 MG/3 ML VIAL.NEB. NEB SCH ×4 (00:06→18:03)
[2016-11-15] MEDS: oxyCODONE HCL 5 MG TABLET PO PRN ×3 (01:44→20:11)
[2016-11-15] MEDS: PIPERACILLIN/TAZOB 4.5 GM/100 ML PRE-DOCKED IVPB SCH ×3 (01:45→17:30)
[2016-11-15] MEDS: guaiFENesin 200 MG/10 ML 10 ML UNIT-DOSE CUPS PO PRN ×4 (02:00→20:12)
[2016-11-15] MEDS ORDERED: PT OWN MED DRAWER 7, Y5N ONE ×3 (05:58→15:05)
[2016-11-15] MEDS: valACYclovir HCL 500 MG TABLET (FP) PO SCH ×3 (06:00→21:13)
[2016-11-15] MEDS: LEVOTHYROXINE NA 125 MCG TABLET (FP) PO SCH (06:02)
[2016-11-15 07:27] LABS: MCHC 31.6 g/dl (32.0-35.9); MEAN PLT VOLUME 8.2 fl (7.5-11.1); PLATELET COUNT 57 K/MM3 (134-434); RDW 14.6 % (11.9-15.9); WHITE BLOOD COUNT 11.5 K/mm3 (4.0-10.0)
[2016-11-15 07:30] LABS: MCH 18.9 pg (25.7-33.7)
[2016-11-15 08:10] LABS: CALCIUM 7.6 mg/dL (8.5-10.1); CREATININE 0.9 mg/dL (0.7-1.3); MAGNESIUM 1.9 mg/dL (1.8-2.4)
[2016-11-15 08:22] LABS: HYPOCHROMIA 4+; MICROCYTOSIS 1+
[2016-11-15 08:23] LABS: SPHEROCYTE 1+; TARGET CELLS 3+
[2016-11-15] MEDS: morphine SO4 SUSTAINED ACTING 15 MG TABLET.SA PO SCH ×2 (10:08→21:05)
[2016-11-15] MEDS: MAGNESIUM OXIDE 400 MG TABLET (FP) PO SCH ×2 (10:08→21:05)
[2016-11-15] MEDS: FOLIC ACID 1 MG TABLET (FP) PO SCH (10:08)
[2016-11-15] MEDS: HEPARIN NA (PORCINE) 5,000 UNITS/ML 1ML VIAL SQ SCH ×2 (10:09→21:05)
[2016-11-15] MEDS: NICOTINE 14 MG/24 HOURS TOPICAL PATCH TD SCH (10:09)
[2016-11-15] MEDS: POLYETHYLENE GLYCOL 3350 119 GM BTL PO SCH (10:09)
--- NOTE | 2016-11-15 11:59 | PN ---
Progress Note (short form) - Note Progress Note: Oncology Follow-up Note S: Patient feels well today with no complaints. He is itching to go home. Last Vital Signs Temp Pulse Resp BP Pulse Ox 98.3 F 82 20 103/68 98 11/15/16 10:07 11/15/16 10:07 11/15/16 10:07 11/15/16 10:07 11/14/16 21:00 Physical Exam : HEENT: SILVINO, EOM Intact Oropharynx: No thrush, No mucositis Cor: RSR, No murmurs, No gallops Lungs: decreased breath sounds RLL posteriorly Abd: Soft, Normal bowel sounds, No organomegaly Ext:No significant edema Skin: improvement in posterior right upper back rash with drying of vesicles CBC, BMP 11/15/16 06:00 11/15/16 06:00 A/P : 50 y/o male with adenoca of the left lung with RUL opacification -On Zosyn for post-obstructive pneumonia, need to clarify course of treatment with ID and when he can be switched to PO treatment as patient is eager for discharge -C1D14 of carboplatin/alimta today, counts continue to alaina -Zoster lesions improved, continue with valtrex 1000 mg TID -Hyponatremia- possible SIADH- check serum osm, urine OSM low -On synthroid for hypothyroidism -supportive care -continue current pain regimen
--- NOTE | 2016-11-15 12:41 | PN ---
Progress Note, Physician History of Present Illness: PULMONARY ALERT,NO COMPLAINTS,-CP,-SOB - Current Medication List Current Medications: Active Medications Albuterol Sulfate (Ventolin 0.083% Nebulizer Soln -) 1 amp NEB QIDR [facility] Last Admin: 11/15/16 11:53 Dose: 1 amp Docusate Sodium (Colace -) 100 mg PO BID PRN PRN Reason: CONSTIPATION Last Admin: 11/13/16 09:17 Dose: 100 mg Folic Acid (Folic Acid -) 1 mg PO DAILY [facility] Last Admin: 11/15/16 10:08 Dose: 1 mg Guaifenesin (Robitussin -) 10 ml PO Q4H PRN PRN Reason: COUGH Last Admin: 11/15/16 10:01 Dose: 10 ml Heparin Sodium (Porcine) (Heparin -) 5,000 unit SQ BID [facility] Last Admin: 11/15/16 10:09 Dose: 5,000 unit Hydroxyzine HCl (Atarax -) 25 mg PO Q6H PRN PRN Reason: FOR ITCHING Last Admin: 11/14/16 15:56 Dose: 25 mg Levothyroxine Sodium (Synthroid -) 125 mcg PO AM [facility] Last Admin: 11/15/16 06:02 Dose: 125 mcg Magnesium Oxide (Mag-Ox -) 400 mg PO BID [facility] Last Admin: 11/15/16 10:08 Dose: 400 mg Morphine Sulfate (Ms Contin -) 15 mg PO BID [facility] Last Admin: 11/15/16 10:08 Dose: 15 mg Nicotine (Nicoderm Patch -) 14 mg TD DAILY [facility] Last Admin: 11/15/16 10:09 Dose: 14 mg Oxycodone HCl (Roxicodone -) 10 mg PO Q4H PRN PRN Reason: PAIN Last Admin: 11/15/16 10:01 Dose: 10 mg Piperacillin Sod/Tazobactam Sod (Zosyn 4.5gm Ivpb (Pre-Docked)) 4.5 gm IVPB Q8H -IV [facility] Last Admin: 11/15/16 10:10 Dose: 4.5 gm Polyethylene Glycol (Miralax (For Daily Use) -) 17 gm PO DAILY [facility] Last Admin: 11/15/16 10:09 Dose: Not Given Senna (Senna -) 2 tab PO HS PRN PRN Reason: CONSTIPATION Last Admin: 11/12/16 09:52 Dose: 2 tab Valacyclovir HCl (Valtrex -) 1,000 mg PO TID [facility] Last Admin: 11/15/16 06:00 Dose: 1,000 mg - Objective Vital Signs: Vital Signs Temperature 98.3 F 11/15/16 10:07 Pulse Rate 82 11/15/16 10:07 Respiratory Rate 20 11/15/16 10:07 Blood Pressure 103/68 11/15/16 10:07 O2 Sat by Pulse Oximetry (%) 98 11/14/16 21:00 Constitutional: Yes: Well Nourished, Calm Eyes: Yes: WNL HENT: Yes: WNL Neck: Yes: Supple Cardiovascular: Yes: Regular Rate and Rhythm, S1, S2 Respiratory: Yes: Diminished (DIMINISHED BS ON R) Gastrointestinal: Yes: Normal Bowel Sounds, Soft Extremities: Yes: WNL, Other (CLUBBING) Labs: CBC, BMP 11/15/16 06:00 11/15/16 06:00 INR, PTT INR 1.23 (0.82-1.09) H 11/09/16 18:45 Assessment/Plan Problem List - Problems (1) Primary lung adenocarcinoma Code(s): C34.90 - MALIGNANT NEOPLASM OF UNSP PART OF UNSP BRONCHUS OR LUNG (2) Pneumonia Code(s): J18.9 - PNEUMONIA, UNSPECIFIED ORGANISM Qualifiers: Pneumonia type: due to unspecified organism Laterality: right Lung location: lower lobe of lung Qualified Code(s): J18.9 - Pneumonia, unspecified organism (3) Pericardial effusion Code(s): I31.3 - PERICARDIAL EFFUSION (NONINFLAMMATORY) (4) COPD (chronic obstructive pulmonary disease) Code(s): J44.9 - CHRONIC OBSTRUCTIVE PULMONARY DISEASE, UNSPECIFIED Qualifiers : COPD type: unspecified COPD Qualified Code(s): J44.9 - Chronic obstructive pulmonary disease, unspecified (5) Atelectasis Code(s): J98.11 - ATELECTASIS Assessment/Plan Chest pain improved NSCLC (Adeno) COPD Atelectasis Recent Chemo - antibiotics per ID - pain control - chest PT - incentive spirometry - inhaled bronchodilators - DVT prophylaxis - f/u chest x-ray lavelle ARTEAGA
[2016-11-15] MEDS: hydrOXYzine HCL 25 MG TABLET (FP) PO PRN (15:06)
--- NOTE | 2016-11-15 20:24 | PN ---
Progress Note, Physician History of Present Illness: No new changes - Current Medication List Current Medications: Active Medications Albuterol Sulfate (Ventolin 0.083% Nebulizer Soln -) 1 amp NEB QIDR [facility] Last Admin: 11/15/16 18:03 Dose: 1 amp Docusate Sodium (Colace -) 100 mg PO BID PRN PRN Reason: CONSTIPATION Last Admin: 11/13/16 09:17 Dose: 100 mg Folic Acid (Folic Acid -) 1 mg PO DAILY [facility] Last Admin: 11/15/16 10:08 Dose: 1 mg Guaifenesin (Robitussin -) 10 ml PO Q4H PRN PRN Reason: COUGH Last Admin: 11/15/16 20:12 Dose: 10 ml Heparin Sodium (Porcine) (Heparin -) 5,000 unit SQ BID [facility] Last Admin: 11/15/16 10:09 Dose: 5,000 unit Hydroxyzine HCl (Atarax -) 25 mg PO Q6H PRN PRN Reason: FOR ITCHING Last Admin: 11/15/16 15:06 Dose: 25 mg Levothyroxine Sodium (Synthroid -) 125 mcg PO AM [facility] Last Admin: 11/15/16 06:02 Dose: 125 mcg Magnesium Oxide (Mag-Ox -) 400 mg PO BID [facility] Last Admin: 11/15/16 10:08 Dose: 400 mg Morphine Sulfate (Ms Contin -) 15 mg PO BID [facility] Last Admin: 11/15/16 10:08 Dose: 15 mg Nicotine (Nicoderm Patch -) 14 mg TD DAILY [facility] Last Admin: 11/15/16 10:09 Dose: 14 mg Oxycodone HCl (Roxicodone -) 10 mg PO Q4H PRN PRN Reason: PAIN Last Admin: 11/15/16 20:11 Dose: 10 mg Piperacillin Sod/Tazobactam Sod (Zosyn 4.5gm Ivpb (Pre-Docked)) 4.5 gm IVPB Q8H -IV [facility] Last Admin: 11/15/16 17:30 Dose: 4.5 gm Polyethylene Glycol (Miralax (For Daily Use) -) 17 gm PO DAILY [facility] Last Admin: 11/15/16 10:09 Dose: Not Given Senna (Senna -) 2 tab PO HS PRN PRN Reason: CONSTIPATION Last Admin: 11/12/16 09:52 Dose: 2 tab Valacyclovir HCl (Valtrex -) 1,000 mg PO TID [facility] Last Admin: 11/15/16 14:51 Dose: 1,000 mg - Objective Vital Signs: Vital Signs Temperature 98.3 F 11/15/16 17:45 Pulse Rate 69 11/15/16 17:45 Respiratory Rate 18 11/15/16 17:45 Blood Pressure 106/55 11/15/16 17:45 O2 Sat by Pulse Oximetry (%) 92 L 11/15/16 09:00 Neck: Yes: Supple Cardiovascular: Yes: WNL, Regular Rate and Rhythm Respiratory: Yes: Other (Decreased bs RT>LT) Gastrointestinal: Yes: WNL, Normal Bowel Sounds, Soft Labs: CBC, BMP 11/15/16 06:00 11/15/16 06:00 INR, PTT INR 1.23 (0.82-1.09) H 11/09/16 18:45 Problem List - Problems (1) Primary lung adenocarcinoma Assessment/Plan: Repeat CXR in am DC planning in am Will speak to ID abut po antibx ?Postobstructive oneumonia Cont IV zosyn Outpt RT Code(s): C34.90 - MALIGNANT NEOPLASM OF UNSP PART OF UNSP BRONCHUS OR LUNG Qualifiers: Laterality: right Qualified Code(s): C34.91 - Malignant neoplasm of unspecified part of right bronchus or lung (2) Acquired pancytopenia Assessment/Plan: WBC still elevated due to neupogen Plts still decreased Cont to monitor ?DC planning for am Code(s): D61.818 - OTHER PANCYTOPENIA (3) Chest pain Assessment/Plan: Atypical vs pain of malignancy Shingles Cont acyclovir Cont MS contin Code(s): R07.9 - CHEST PAIN, UNSPECIFIED Qualifiers: Chest pain type: chest pain on breathing Qualified Code(s): R07.1 - Chest pain on breathing (4) COPD (chronic obstructive pulmonary disease) Assessment/Plan: Cont nebulizers Code(s): J44.9 - CHRONIC OBSTRUCTIVE PULMONARY DISEASE, UNSPECIFIED Qualifiers : COPD type: unspecified COPD Qualified Code(s): J44.9 - Chronic obstructive pulmonary disease, unspecified (5) Hypothyroidism Assessment/Plan: Cont levothyroxine (Dose was increased during this hospitalization from 100 to 125 and therefore will need to check tsh in 6 weeks) Code(s): E03.9 - HYPOTHYROIDISM, UNSPECIFIED Qualifiers: Hypothyroidism type: unspecified Qualified Code(s): E03.9 - Hypothyroidism, unspecified (6) Pericardial effusion Assessment/Plan: Check echo in 1 month Code(s): I31.3 - PERICARDIAL EFFUSION (NONINFLAMMATORY)
--- NOTE | 2016-11-15 22:04 | PN ---
Progress Note, Physician Chief Complaint: Feels better History of Present Illness: Patient was seen and examined. Awake and alert. Chart was reviewed Denies chest pain or palpitation Breathing comfortable - Current Medication List Current Medications: Active Medications Albuterol Sulfate (Ventolin 0.083% Nebulizer Soln -) 1 amp NEB QIDR [facility] Last Admin: 11/15/16 18:03 Dose: 1 amp Docusate Sodium (Colace -) 100 mg PO BID PRN PRN Reason: CONSTIPATION Last Admin: 11/13/16 09:17 Dose: 100 mg Folic Acid (Folic Acid -) 1 mg PO DAILY [facility] Last Admin: 11/15/16 10:08 Dose: 1 mg Guaifenesin (Robitussin -) 10 ml PO Q4H PRN PRN Reason: COUGH Last Admin: 11/15/16 20:12 Dose: 10 ml Heparin Sodium (Porcine) (Heparin -) 5,000 unit SQ BID [facility] Last Admin: 11/15/16 21:05 Dose: 5,000 unit Hydroxyzine HCl (Atarax -) 25 mg PO Q6H PRN PRN Reason: FOR ITCHING Last Admin: 11/15/16 15:06 Dose: 25 mg Levothyroxine Sodium (Synthroid -) 125 mcg PO AM [facility] Last Admin: 11/15/16 06:02 Dose: 125 mcg Magnesium Oxide (Mag-Ox -) 400 mg PO BID [facility] Last Admin: 11/15/16 21:05 Dose: 400 mg Morphine Sulfate (Ms Contin -) 15 mg PO BID [facility] Last Admin: 11/15/16 21:05 Dose: 15 mg Nicotine (Nicoderm Patch -) 14 mg TD DAILY [facility] Last Admin: 11/15/16 10:09 Dose: 14 mg Oxycodone HCl (Roxicodone -) 10 mg PO Q4H PRN PRN Reason: PAIN Last Admin: 11/15/16 20:11 Dose: 10 mg Piperacillin Sod/Tazobactam Sod (Zosyn 4.5gm Ivpb (Pre-Docked)) 4.5 gm IVPB Q8H -IV [facility] Last Admin: 11/15/16 17:30 Dose: 4.5 gm Polyethylene Glycol (Miralax (For Daily Use) -) 17 gm PO DAILY [facility] Last Admin: 11/15/16 10:09 Dose: Not Given Senna (Senna -) 2 tab PO HS PRN PRN Reason: CONSTIPATION Last Admin: 11/12/16 09:52 Dose: 2 tab Valacyclovir HCl (Valtrex -) 1,000 mg PO TID [facility] Last Admin: 11/15/16 21:13 Dose: 1,000 mg - Objective Vital Signs: Vital Signs Temperature 98.3 F 11/15/16 17:45 Pulse Rate 69 11/15/16 17:45 Respiratory Rate 18 11/15/16 17:45 Blood Pressure 106/55 11/15/16 17:45 O2 Sat by Pulse Oximetry (%) 92 L 11/15/16 09:00 Neck: Yes: Supple Cardiovascular: Yes: Regular Rate and Rhythm, S1, S2 Respiratory: Yes: Diminished Gastrointestinal: Yes: Normal Bowel Sounds, Soft. No: Tenderness Edema: No Labs: CBC, BMP 11/15/16 06:00 11/15/16 06:00 Problem List - Problems (1) Atelectasis Code(s): J98.11 - ATELECTASIS (2) Lung cancer Code(s): C34.90 - MALIGNANT NEOPLASM OF UNSP PART OF UNSP BRONCHUS OR LUNG Qualifiers: Laterality: right (3) Obstructive pneumonia Code(s): J18.9 - PNEUMONIA, UNSPECIFIED ORGANISM (4) Pericardial effusion Code(s): I31.3 - PERICARDIAL EFFUSION (NONINFLAMMATORY) (5) COPD (chronic obstructive pulmonary disease) Code(s): J44.9 - CHRONIC OBSTRUCTIVE PULMONARY DISEASE, UNSPECIFIED Qualifiers : COPD type: unspecified COPD Qualified Code(s): J44.9 - Chronic obstructive pulmonary disease, unspecified (6) Hypothyroidism Code(s): E03.9 - HYPOTHYROIDISM, UNSPECIFIED Qualifiers: Hypothyroidism type: unspecified Qualified Code(s): E03.9 - Hypothyroidism, unspecified Assessment/Plan 1. Chest pain likely due to post obstructive pneumonia from progressive tumor enlargement vs mucous plugging 2. Pericardial effusion 3. RUL Stage IIIB NSCLC 3. COPD 4. Atelectasis 5. Hypothyroidism PLAN: 1. Empiric antibiotics 2. Bronchodilator, O2 and chest PT 3. Would repeat echocardiography in 1 month to assess pericardial effusion 4. Chemotherapy per oncology Further plans are to follow Chad Pandey MD
[2016-11-16] MEDS: PIPERACILLIN/TAZOB 4.5 GM/100 ML PRE-DOCKED IVPB SCH ×2 (01:33→10:38)
[2016-11-16] MEDS: oxyCODONE HCL 5 MG TABLET PO PRN ×4 (01:39→21:15)
[2016-11-16] MEDS: guaiFENesin 200 MG/10 ML 10 ML UNIT-DOSE CUPS PO PRN ×2 (01:40→06:06)
[2016-11-16] MEDS: valACYclovir HCL 500 MG TABLET (FP) PO SCH ×3 (06:06→22:46)
[2016-11-16] MEDS ORDERED: ALBUTEROL SO4 0.5 % INH SOLN 2.5 MG/0.5 ML VIAL.NEB. NEB ONE (06:07)
[2016-11-16] MEDS: LEVOTHYROXINE NA 125 MCG TABLET (FP) PO SCH (06:07)
[2016-11-16] MEDS: ALBUTEROL SO4 0.083% IH SOL 2.5 MG/3 ML VIAL.NEB. NEB SCH ×5 (06:18→23:53)
[2016-11-16 07:39] LABS: MCHC 32.4 g/dl (32.0-35.9); MEAN CELL VOLUME 59.7 fl (80-96); MEAN PLT VOLUME 8.2 fl (7.5-11.1); PLATELET COUNT 64 K/MM3 (134-434); RDW 14.5 % (11.9-15.9); WHITE BLOOD COUNT 10.6 K/mm3 (4.0-10.0)
[2016-11-16 07:54] LABS: MCH 19.3 pg (25.7-33.7)
[2016-11-16 08:38] LABS: ALK PHOS 163 U/L (45-117); ANION GAP 11 (8-16); BILIRUBIN,TOTAL 0.2 mg/dL (0.2-1.0); CALCIUM 7.8 mg/dL (8.5-10.1); CO2 29 mmol/L (21-32); CREATININE 0.9 mg/dL (0.7-1.3); GLUCOSE,RANDOM 81 mg/dL (74-106); SGOT/AST 20 U/L (15-37); SGPT/ALT 21 U/L (12-78); TOT PROT 5.3 g/dl (6.4-8.2)
[2016-11-16] MEDS: NICOTINE 14 MG/24 HOURS TOPICAL PATCH TD SCH (10:38)
[2016-11-16] MEDS: morphine SO4 SUSTAINED ACTING 15 MG TABLET.SA PO SCH ×2 (10:39→22:00)
[2016-11-16] MEDS: FOLIC ACID 1 MG TABLET (FP) PO SCH (10:39)
[2016-11-16] MEDS: MAGNESIUM OXIDE 400 MG TABLET (FP) PO SCH ×2 (10:40→22:43)
[2016-11-16] MEDS: HEPARIN NA (PORCINE) 5,000 UNITS/ML 1ML VIAL SQ SCH ×2 (10:40→22:46)
[2016-11-16] MEDS: POLYETHYLENE GLYCOL 3350 119 GM BTL PO SCH (10:40)
--- NOTE | 2016-11-16 10:45 | PN ---
Progress Note, Physician History of Present Illness: Right pleurisy and dyspnea improved. - Current Medication List Current Medications: Active Medications Albuterol Sulfate (Ventolin 0.083% Nebulizer Soln -) 1 amp NEB QIDR [facility] Last Admin: 11/16/16 06:18 Dose: 1 amp Docusate Sodium (Colace -) 100 mg PO BID PRN PRN Reason: CONSTIPATION Last Admin: 11/13/16 09:17 Dose: 100 mg Folic Acid (Folic Acid -) 1 mg PO DAILY [facility] Last Admin: 11/16/16 10:39 Dose: 1 mg Guaifenesin (Robitussin -) 10 ml PO Q4H PRN PRN Reason: COUGH Last Admin: 11/16/16 06:06 Dose: 10 ml Heparin Sodium (Porcine) (Heparin -) 5,000 unit SQ BID [facility] Last Admin: 11/16/16 10:40 Dose: 5,000 unit Hydroxyzine HCl (Atarax -) 25 mg PO Q6H PRN PRN Reason: FOR ITCHING Last Admin: 11/15/16 15:06 Dose: 25 mg Levothyroxine Sodium (Synthroid -) 125 mcg PO AM [facility] Last Admin: 11/16/16 06:07 Dose: 125 mcg Magnesium Oxide (Mag-Ox -) 400 mg PO BID [facility] Last Admin: 11/16/16 10:40 Dose: 400 mg Morphine Sulfate (Ms Contin -) 15 mg PO BID [facility] Last Admin: 11/16/16 10:39 Dose: 15 mg Nicotine (Nicoderm Patch -) 14 mg TD DAILY [facility] Last Admin: 11/16/16 10:38 Dose: 14 mg Oxycodone HCl (Roxicodone -) 10 mg PO Q4H PRN PRN Reason: PAIN Last Admin: 11/16/16 06:07 Dose: 10 mg Piperacillin Sod/Tazobactam Sod (Zosyn 4.5gm Ivpb (Pre-Docked)) 4.5 gm IVPB Q8H -IV [facility] Last Admin: 11/16/16 10:38 Dose: 4.5 gm Polyethylene Glycol (Miralax (For Daily Use) -) 17 gm PO DAILY [facility] Last Admin: 11/16/16 10:40 Dose: Not Given Senna (Senna -) 2 tab PO HS PRN PRN Reason: CONSTIPATION Last Admin: 11/12/16 09:52 Dose: 2 tab Valacyclovir HCl (Valtrex -) 1,000 mg PO TID [facility] Last Admin: 11/16/16 06:06 Dose: 1,000 mg - Objective Vital Signs: Vital Signs Temperature 97.7 F 11/16/16 10:23 Pulse Rate 69 11/16/16 10:23 Respiratory Rate 20 11/16/16 10:23 Blood Pressure 98/61 11/16/16 10:23 O2 Sat by Pulse Oximetry (%) 92 L 11/15/16 09:00 Constitutional: Yes: No Distress, Calm Neck: Yes: Supple Cardiovascular: Yes: Regular Rate and Rhythm Respiratory: Yes: Regular, Diminished Gastrointestinal: Yes: Normal Bowel Sounds, Soft Edema: No Labs: CBC, BMP 11/16/16 06:20 11/16/16 06:20 INR, PTT INR 1.23 (0.82-1.09) H 11/09/16 18:45 Problem List - Problems (1) Atelectasis Code(s): J98.11 - ATELECTASIS (2) Chest pain Code(s): R07.9 - CHEST PAIN, UNSPECIFIED Qualifiers: Chest pain type: chest pain on breathing Qualified Code(s): R07.1 - Chest pain on breathing (3) Pericardial effusion Code(s): I31.3 - PERICARDIAL EFFUSION (NONINFLAMMATORY) (4) Primary lung adenocarcinoma Code(s): C34.90 - MALIGNANT NEOPLASM OF UNSP PART OF UNSP BRONCHUS OR LUNG Qualifiers: Laterality: right Qualified Code(s): C34.91 - Malignant neoplasm of unspecified part of right bronchus or lung (5) COPD (chronic obstructive pulmonary disease) Code(s): J44.9 - CHRONIC OBSTRUCTIVE PULMONARY DISEASE, UNSPECIFIED Qualifiers : COPD type: unspecified COPD Qualified Code(s): J44.9 - Chronic obstructive pulmonary disease, unspecified (6) Hypothyroidism Code(s): E03.9 - HYPOTHYROIDISM, UNSPECIFIED Qualifiers: Hypothyroidism type: unspecified Qualified Code(s): E03.9 - Hypothyroidism, unspecified (7) Obstructive pneumonia Code(s): J18.9 - PNEUMONIA, UNSPECIFIED ORGANISM Assessment/Plan 1. Chest pain likely due to post obstructive pneumonia from progressive tumor enlargement vs mucous plugging 2. Pericardial effusion 3. RUL Stage IIIB NSCLC 3. COPD 4. Atelectasis 5. Hypothyroidism PLAN: 1. Complete empiric antibiotics coverage for post-op PNA 2. Bronchodilator, O2 and chest PT 3. Would repeat echocardiography in 1 month to assess pericardial effusion 4. Chemotherapy per oncology 5. DVT prophylaxis
--- NOTE | 2016-11-16 11:09 | PN ---
Progress Note (short form) - Note Progress Note: feels better no chest pain neutropenia resolved Vital Signs Period Temp Pulse Resp BP Sys/Brandon Pulse Ox Last 24 Hr 97.7 F-98.7 F 67-74 18-20 98-110/55-66 no thrush cor-rrr lungs decreased bs right lung abd soft,nt ext no edema CBC, BMP 11/16/16 06:20 11/16/16 06:20 Microbiology 11/10/16 08:51 Blood - Peripheral Venous Blood Culture - Final NO GROWTH AFTER 5 DAYS INCUBATION 11/10/16 08:45 Blood - Peripheral Venous Blood Culture - Final NO GROWTH AFTER 5 DAYS INCUBATION 11/10/16 16:00 Sputum - Expectorated Gram Stain - Final 11/10/16 16:00 Sputum - Expectorated Sputum Culture - Final Yeast Like Organism 11/10/16 16:00 Urine For Antigen Detection Legionella Antigen - Final 11/10/16 16:00 Urine For Antigen Detection Streptococcus pneumoniae Antigen (M - Final a/p poorly differentiated adenocancer- s/p chemo neutropenia resolved d/c isolation pain control no objection to switch to po augmentin zoster drying complete 7 days valtrex
--- NOTE | 2016-11-16 11:38 | PN ---
Progress Note (short form) - Note Progress Note: PULMONARY Feels better. No shortness of breath. +chronic cough unchanged. No fevers or chills. Last Vital Signs Temp Pulse Resp BP Pulse Ox 97.7 F 69 20 98/61 92 L 11/16/16 10:23 11/16/16 10:23 11/16/16 10:23 11/16/16 10:23 11/15/16 09:00 Gen: NAD at rest Heart: RRR Lung: decreased breath sounds on right Abd: soft, nontender Ext: no edema CBC, BMP 11/16/16 06:20 11/16/16 06:20 Active Medications Albuterol Sulfate (Ventolin 0.083% Nebulizer Soln -) 1 amp NEB QIDR [facility] Last Admin: 11/16/16 06:18 Dose: 1 amp Docusate Sodium (Colace -) 100 mg PO BID PRN PRN Reason: CONSTIPATION Last Admin: 11/13/16 09:17 Dose: 100 mg Folic Acid (Folic Acid -) 1 mg PO DAILY [facility] Last Admin: 11/16/16 10:39 Dose: 1 mg Guaifenesin (Robitussin -) 10 ml PO Q4H PRN PRN Reason: COUGH Last Admin: 11/16/16 06:06 Dose: 10 ml Heparin Sodium (Porcine) (Heparin -) 5,000 unit SQ BID [facility] Last Admin: 11/16/16 10:40 Dose: 5,000 unit Hydroxyzine HCl (Atarax -) 25 mg PO Q6H PRN PRN Reason: FOR ITCHING Last Admin: 11/15/16 15:06 Dose: 25 mg Levothyroxine Sodium (Synthroid -) 125 mcg PO AM [facility] Last Admin: 11/16/16 06:07 Dose: 125 mcg Magnesium Oxide (Mag-Ox -) 400 mg PO BID [facility] Last Admin: 11/16/16 10:40 Dose: 400 mg Morphine Sulfate (Ms Contin -) 15 mg PO BID [facility] Last Admin: 11/16/16 10:39 Dose: 15 mg Nicotine (Nicoderm Patch -) 14 mg TD DAILY [facility] Last Admin: 11/16/16 10:38 Dose: 14 mg Piperacillin Sod/Tazobactam Sod (Zosyn 4.5gm Ivpb (Pre-Docked)) 4.5 gm IVPB Q8H -IV [facility] Last Admin: 11/16/16 10:38 Dose: 4.5 gm Polyethylene Glycol (Miralax (For Daily Use) -) 17 gm PO DAILY [facility] Last Admin: 11/16/16 10:40 Dose: Not Given Senna (Senna -) 2 tab PO HS PRN PRN Reason: CONSTIPATION Last Admin: 11/12/16 09:52 Dose: 2 tab Valacyclovir HCl (Valtrex -) 1,000 mg PO TID [facility] Last Admin: 11/16/16 06:06 Dose: 1,000 mg A/P NSCLC (adenoca) Post obstructive Pneumonia Pericardial Effusion COPD Atelectasis - antibiotics per ID - OOB, ambulate - O2 as needed - DVT prophylaxis Problem List - Problems (1) Primary lung adenocarcinoma Code(s): C34.90 - MALIGNANT NEOPLASM OF UNSP PART OF UNSP BRONCHUS OR LUNG Qualifiers: Laterality: right Qualified Code(s): C34.91 - Malignant neoplasm of unspecified part of right bronchus or lung (2) Pneumonia Code(s): J18.9 - PNEUMONIA, UNSPECIFIED ORGANISM Qualifiers: Pneumonia type: due to unspecified organism Laterality: right Lung location: lower lobe of lung Qualified Code(s): J18.9 - Pneumonia, unspecified organism (3) Pericardial effusion Code(s): I31.3 - PERICARDIAL EFFUSION (NONINFLAMMATORY) (4) COPD (chronic obstructive pulmonary disease) Code(s): J44.9 - CHRONIC OBSTRUCTIVE PULMONARY DISEASE, UNSPECIFIED Qualifiers : COPD type: unspecified COPD Qualified Code(s): J44.9 - Chronic obstructive pulmonary disease, unspecified (5) Atelectasis Code(s): J98.11 - ATELECTASIS
[2016-11-16] MEDS: LEVOFLOXACIN 500 MG TABLET (FP) PO SCH (14:00)
[2016-11-16] MEDS ORDERED: PT OWN MED DRAWER 7, Y5N ONE (21:10)
--- NOTE | 2016-11-16 21:13 | PN ---
Progress Note, Physician History of Present Illness: No new changes - Current Medication List Current Medications: Active Medications Albuterol Sulfate (Ventolin 0.083% Nebulizer Soln -) 1 amp NEB QIDR [facility] Last Admin: 11/16/16 14:15 Dose: 1 amp Docusate Sodium (Colace -) 100 mg PO BID PRN PRN Reason: CONSTIPATION Last Admin: 11/13/16 09:17 Dose: 100 mg Folic Acid (Folic Acid -) 1 mg PO DAILY [facility] Last Admin: 11/16/16 10:39 Dose: 1 mg Guaifenesin (Robitussin -) 10 ml PO Q4H PRN PRN Reason: COUGH Last Admin: 11/16/16 06:06 Dose: 10 ml Heparin Sodium (Porcine) (Heparin -) 5,000 unit SQ BID [facility] Last Admin: 11/16/16 10:40 Dose: 5,000 unit Hydroxyzine HCl (Atarax -) 25 mg PO Q6H PRN PRN Reason: FOR ITCHING Last Admin: 11/15/16 15:06 Dose: 25 mg Levofloxacin (Levaquin -) 500 mg PO DAILY@0600 [facility] Last Admin: 11/16/16 14:00 Dose: 500 mg Levothyroxine Sodium (Synthroid -) 125 mcg PO AM [facility] Last Admin: 11/16/16 06:07 Dose: 125 mcg Magnesium Oxide (Mag-Ox -) 400 mg PO BID [facility] Last Admin: 11/16/16 10:40 Dose: 400 mg Morphine Sulfate (Ms Contin -) 15 mg PO BID [facility] Last Admin: 11/16/16 10:39 Dose: 15 mg Nicotine (Nicoderm Patch -) 14 mg TD DAILY [facility] Last Admin: 11/16/16 10:38 Dose: 14 mg Oxycodone HCl (Roxicodone -) 10 mg PO Q4H PRN PRN Reason: PAIN Polyethylene Glycol (Miralax (For Daily Use) -) 17 gm PO DAILY [facility] Last Admin: 11/16/16 10:40 Dose: Not Given Senna (Senna -) 2 tab PO HS PRN PRN Reason: CONSTIPATION Last Admin: 11/12/16 09:52 Dose: 2 tab Valacyclovir HCl (Valtrex -) 1,000 mg PO TID [facility] Last Admin: 11/16/16 14:00 Dose: 1,000 mg - Objective Vital Signs: Vital Signs Temperature 97.2 F L 11/16/16 18:28 Pulse Rate 89 11/16/16 18:28 Respiratory Rate 20 11/16/16 18:28 Blood Pressure 119/79 11/16/16 18:28 O2 Sat by Pulse Oximetry (%) 94 L 11/16/16 09:00 Neck: Yes: Supple Cardiovascular: Yes: WNL, Regular Rate and Rhythm Respiratory: Yes: Other (Decreased bs b/l) Gastrointestinal: Yes: WNL, Normal Bowel Sounds, Soft Labs: CBC, BMP 11/16/16 06:20 11/16/16 06:20 INR, PTT INR 1.23 (0.82-1.09) H 11/09/16 18:45 Problem List - Problems (1) Primary lung adenocarcinoma Assessment/Plan: Repeat CXR showed increase opacification rt lung DC planning in am Finish course of antibx for postobstructive oneumonia Onco/RT f/u as outpt Code(s): C34.90 - MALIGNANT NEOPLASM OF UNSP PART OF UNSP BRONCHUS OR LUNG Qualifiers: Laterality: right Qualified Code(s): C34.91 - Malignant neoplasm of unspecified part of right bronchus or lung (2) Chest pain Assessment/Plan: Atypical vs pain of malignancy Shingles Cont acyclovir Cont MS contin Code(s): R07.9 - CHEST PAIN, UNSPECIFIED Qualifiers: Chest pain type: chest pain on breathing Qualified Code(s): R07.1 - Chest pain on breathing (3) Acquired pancytopenia Assessment/Plan: WBC still elevated due to neupogen Plts still decreased Cont to monitor ?DC planning for am Code(s): D61.818 - OTHER PANCYTOPENIA (4) COPD (chronic obstructive pulmonary disease) Assessment/Plan: Cont nebulizers Code(s): J44.9 - CHRONIC OBSTRUCTIVE PULMONARY DISEASE, UNSPECIFIED Qualifiers : COPD type: unspecified COPD Qualified Code(s): J44.9 - Chronic obstructive pulmonary disease, unspecified (5) Hypothyroidism Assessment/Plan: Cont levothyroxine (Dose was increased during this hospitalization from 100 to 125 and therefore will need to check tsh in 6 weeks) Code(s): E03.9 - HYPOTHYROIDISM, UNSPECIFIED Qualifiers: Hypothyroidism type: unspecified Qualified Code(s): E03.9 - Hypothyroidism, unspecified (6) Pericardial effusion Code(s): I31.3 - PERICARDIAL EFFUSION (NONINFLAMMATORY)
--- NOTE | 2016-11-16 22:07 | PN ---
Progress Note (short form) - Note Progress Note: Patient seen and examined coughed up brownish, mucosy stuff today. No reji hemoptysis. Was short of breath and required more oxygen Last Vital Signs Temp Pulse Resp BP Pulse Ox 97.5 F L 73 20 121/75 98 11/17/16 05:18 11/17/16 05:18 11/17/16 05:18 11/17/16 05:18 11/16/16 21:00 HEENT: SILVINO, EOM Intact Cor: RSR, No murmurs, No gallops Lungs: decreased rt. breath sounds Abd: Soft, Normal bowel sounds, No organomegaly Ext:No significant edema Current Medications Albuterol Sulfate (Ventolin 0.083% Nebulizer Soln -) 1 amp NEB QIDR [facility] Last Admin: 11/17/16 06:33 Dose: 1 amp Docusate Sodium (Colace -) 100 mg PO BID PRN PRN Reason: CONSTIPATION Last Admin: 11/16/16 22:42 Dose: 100 mg Folic Acid (Folic Acid -) 1 mg PO DAILY [facility] Last Admin: 11/17/16 10:31 Dose: 1 mg Guaifenesin (Robitussin -) 10 ml PO Q4H PRN PRN Reason: COUGH Last Admin: 11/16/16 06:06 Dose: 10 ml Hydroxyzine HCl (Atarax -) 25 mg PO Q6H PRN PRN Reason: FOR ITCHING Last Admin: 11/15/16 15:06 Dose: 25 mg Levofloxacin (Levaquin -) 500 mg PO DAILY@0600 [facility] Last Admin: 11/17/16 06:05 Dose: 500 mg Levothyroxine Sodium (Synthroid -) 125 mcg PO AM [facility] Last Admin: 11/17/16 06:07 Dose: 125 mcg Magnesium Oxide (Mag-Ox -) 400 mg PO BID [facility] Last Admin: 11/17/16 10:31 Dose: 400 mg Morphine Sulfate (Ms Contin -) 15 mg PO BID [facility] Last Admin: 11/17/16 10:30 Dose: 15 mg Nicotine (Nicoderm Patch -) 14 mg TD DAILY [facility] Last Admin: 11/17/16 10:31 Dose: 14 mg Oxycodone HCl (Roxicodone -) 10 mg PO Q4H PRN PRN Reason: PAIN Last Admin: 11/17/16 08:08 Dose: 10 mg Polyethylene Glycol (Miralax (For Daily Use) -) 17 gm PO DAILY [facility] Last Admin: 11/17/16 10:32 Dose: Not Given Senna (Senna -) 2 tab PO HS PRN PRN Reason: CONSTIPATION Last Admin: 11/16/16 22:45 Dose: 2 tab Valacyclovir HCl (Valtrex -) 1,000 mg PO TID [facility] Last Admin: 11/17/16 06:05 Dose: 1,000 mg A/P 50 y/o patient with metastatic poorly diff. adenoca of the lung, C1D14 carbo/ alimta Stage IV adenocarcinoma of RUL --? adrenal mets--with hilar/bilateral mediastinal LAD a/w right upper chest pain and progressive postobstructive atelectasis and PNA of RLL 2/2 to airway obstruction. Switching zosyn to levaquin discussed with /id team had mild hives/itching--?? zosyn SOB--Repeat CXR worsening collapse discussed with pulmonary team Was on NRB switch to nasal canula Discussed with pulmonary ? worsening collapse Reconsult RT thrombocytopenia--? zosyn/? chemop repeat Unlikely HIT Home o2 eval
[2016-11-16] MEDS: DOCUSATE SODIUM 100 MG CAPSULE (FP) PO PRN (22:42)
[2016-11-16] MEDS: SENNOSIDES 8.6MG TABLET (FP) PO PRN (22:45)
[2016-11-17] MEDS: oxyCODONE HCL 5 MG TABLET PO PRN ×4 (03:28→18:35)
[2016-11-17] MEDS: valACYclovir HCL 500 MG TABLET (FP) PO SCH ×3 (06:05→21:37)
[2016-11-17] MEDS: LEVOFLOXACIN 500 MG TABLET (FP) PO SCH (06:05)
[2016-11-17] MEDS: LEVOTHYROXINE NA 125 MCG TABLET (FP) PO SCH (06:07)
[2016-11-17] MEDS: ALBUTEROL SO4 0.083% IH SOL 2.5 MG/3 ML VIAL.NEB. NEB SCH ×3 (06:33→16:40)
[2016-11-17] MEDS ORDERED: PT OWN MED DRAWER 7, Y5N ONE (06:59)
[2016-11-17] MEDS: morphine SO4 SUSTAINED ACTING 15 MG TABLET.SA PO SCH ×2 (10:30→21:36)
[2016-11-17] MEDS: MAGNESIUM OXIDE 400 MG TABLET (FP) PO SCH ×2 (10:31→21:35)
[2016-11-17] MEDS: NICOTINE 14 MG/24 HOURS TOPICAL PATCH TD SCH (10:31)
[2016-11-17] MEDS: FOLIC ACID 1 MG TABLET (FP) PO SCH (10:31)
[2016-11-17] MEDS: HEPARIN NA (PORCINE) 5,000 UNITS/ML 1ML VIAL SQ SCH (10:31)
[2016-11-17] MEDS: POLYETHYLENE GLYCOL 3350 119 GM BTL PO SCH (10:32)
--- NOTE | 2016-11-17 10:47 | PN ---
Progress Note (short form) - Note Progress Note: PULMONARY Episode of shortness of breath last night requiring NRB. [place] better after coughing up secretions. No fevers or chills. Last Vital Signs Temp Pulse Resp BP Pulse Ox 97.5 F L 102 H 20 121/75 94 L 11/17/16 05:18 11/17/16 10:36 11/17/16 05:18 11/17/16 05:18 11/17/16 10:36 Gen: NAD at rest Heart: RRR Lung: decreased breath sounds on right Abd: soft, nontender Ext: no edema CBC, BMP 11/16/16 06:20 11/16/16 06:20 Active Medications Albuterol Sulfate (Ventolin 0.083% Nebulizer Soln -) 1 amp NEB QIDR [facility] Last Admin: 11/17/16 06:33 Dose: 1 amp Docusate Sodium (Colace -) 100 mg PO BID PRN PRN Reason: CONSTIPATION Last Admin: 11/16/16 22:42 Dose: 100 mg Folic Acid (Folic Acid -) 1 mg PO DAILY [facility] Last Admin: 11/17/16 10:31 Dose: 1 mg Guaifenesin (Robitussin -) 10 ml PO Q4H PRN PRN Reason: COUGH Last Admin: 11/16/16 06:06 Dose: 10 ml Hydroxyzine HCl (Atarax -) 25 mg PO Q6H PRN PRN Reason: FOR ITCHING Last Admin: 11/15/16 15:06 Dose: 25 mg Levofloxacin (Levaquin -) 500 mg PO DAILY@0600 [facility] Last Admin: 11/17/16 06:05 Dose: 500 mg Levothyroxine Sodium (Synthroid -) 125 mcg PO AM [facility] Last Admin: 11/17/16 06:07 Dose: 125 mcg Magnesium Oxide (Mag-Ox -) 400 mg PO BID [facility] Last Admin: 11/17/16 10:31 Dose: 400 mg Morphine Sulfate (Ms Contin -) 15 mg PO BID [facility] Last Admin: 11/17/16 10:30 Dose: 15 mg Nicotine (Nicoderm Patch -) 14 mg TD DAILY [facility] Last Admin: 11/17/16 10:31 Dose: 14 mg Oxycodone HCl (Roxicodone -) 10 mg PO Q4H PRN PRN Reason: PAIN Last Admin: 11/17/16 08:08 Dose: 10 mg Polyethylene Glycol (Miralax (For Daily Use) -) 17 gm PO DAILY [facility] Last Admin: 11/17/16 10:32 Dose: Not Given Senna (Senna -) 2 tab PO HS PRN PRN Reason: CONSTIPATION Last Admin: 11/16/16 22:45 Dose: 2 tab Valacyclovir HCl (Valtrex -) 1,000 mg PO TID [facility] Last Admin: 11/17/16 06:05 Dose: 1,000 mg A/P NSCLC (adenoca) Post obstructive Pneumonia Pericardial Effusion COPD Atelectasis - antibiotics per ID - inhaled bronchodilators - chest PT - OOB, ambulate - O2 as needed - DVT prophylaxis - close outpt f/u Problem List - Problems (1) Primary lung adenocarcinoma Code(s): C34.90 - MALIGNANT NEOPLASM OF UNSP PART OF UNSP BRONCHUS OR LUNG Qualifiers: Laterality: right Qualified Code(s): C34.91 - Malignant neoplasm of unspecified part of right bronchus or lung (2) Pneumonia Code(s): J18.9 - PNEUMONIA, UNSPECIFIED ORGANISM Qualifiers: Pneumonia type: due to unspecified organism Laterality: right Lung location: lower lobe of lung Qualified Code(s): J18.9 - Pneumonia, unspecified organism (3) Pericardial effusion Code(s): I31.3 - PERICARDIAL EFFUSION (NONINFLAMMATORY) (4) COPD (chronic obstructive pulmonary disease) Code(s): J44.9 - CHRONIC OBSTRUCTIVE PULMONARY DISEASE, UNSPECIFIED Qualifiers : COPD type: unspecified COPD Qualified Code(s): J44.9 - Chronic obstructive pulmonary disease, unspecified (5) Atelectasis Code(s): J98.11 - ATELECTASIS
[2016-11-17 11:30] LABS: MCHC 31.7 g/dl (32.0-35.9); MEAN CELL VOLUME 59.9 fl (80-96); MEAN PLT VOLUME 8.3 fl (7.5-11.1); PLATELET COUNT 111 K/MM3 (134-434); RDW 14.8 % (11.9-15.9)
--- NOTE | 2016-11-17 11:51 | PN ---
Progress Note (short form) - Note Progress Note: Chief Complaint: Events noted, notes reviewed, dyspnea last night productive of dark sputum History of Present Illness: Seen and examined. Events noted, notes reviewed, dyspnea last night productive of dark sputum CT scan of the chest and echocardiography reports noted; pericardial effusion noted will plan a repeat TTE in 1 month for further evaluation - Current Medication List Current Medications Albuterol Sulfate (Ventolin 0.083% Nebulizer Soln -) 1 amp NEB QIDR [facility] Last Admin: 11/17/16 11:10 Dose: 1 amp Docusate Sodium (Colace -) 100 mg PO BID PRN PRN Reason: CONSTIPATION Last Admin: 11/16/16 22:42 Dose: 100 mg Folic Acid (Folic Acid -) 1 mg PO DAILY [facility] Last Admin: 11/17/16 10:31 Dose: 1 mg Guaifenesin (Robitussin -) 10 ml PO Q4H PRN PRN Reason: COUGH Last Admin: 11/16/16 06:06 Dose: 10 ml Hydroxyzine HCl (Atarax -) 25 mg PO Q6H PRN PRN Reason: FOR ITCHING Last Admin: 11/15/16 15:06 Dose: 25 mg Levofloxacin (Levaquin -) 500 mg PO DAILY@0600 [facility] Last Admin: 11/17/16 06:05 Dose: 500 mg Levothyroxine Sodium (Synthroid -) 125 mcg PO AM [facility] Last Admin: 11/17/16 06:07 Dose: 125 mcg Magnesium Oxide (Mag-Ox -) 400 mg PO BID [facility] Last Admin: 11/17/16 10:31 Dose: 400 mg Morphine Sulfate (Ms Contin -) 15 mg PO BID [facility] Last Admin: 11/17/16 10:30 Dose: 15 mg Nicotine (Nicoderm Patch -) 14 mg TD DAILY [facility] Last Admin: 11/17/16 10:31 Dose: 14 mg Oxycodone HCl (Roxicodone -) 10 mg PO Q4H PRN PRN Reason: PAIN Last Admin: 11/17/16 08:08 Dose: 10 mg Polyethylene Glycol (Miralax (For Daily Use) -) 17 gm PO DAILY [facility] Last Admin: 11/17/16 10:32 Dose: Not Given Senna (Senna -) 2 tab PO HS PRN PRN Reason: CONSTIPATION Last Admin: 11/16/16 22:45 Dose: 2 tab Valacyclovir HCl (Valtrex -) 1,000 mg PO TID [facility] Last Admin: 11/17/16 06:05 Dose: 1,000 mg - Objective Vital Signs: Last Vital Signs Temp Pulse Resp BP Pulse Ox 97.5 F L 90 20 121/75 91 L 11/17/16 05:18 11/17/16 10:54 11/17/16 05:18 11/17/16 05:18 11/17/16 10:54 Constitutional: No Distress, Calm Neck: Supple Negative JVD Cardiovascular: S1 S2 Regular Rate and Rhythm Respiratory: Diminished at the Bases Bilaterally Gastrointestinal: Soft Benign Normal Bowel Sounds Ext: No Edema Labs: CBC, BMP 11/17/16 11:00 Assessment/Plan ASSESSMENT: 1. Chest pain syndrome most likely due to post obstructive pneumonia/ inflammatory from progressive tumor enlargement 2. Pericardial effusion 3. Right upper lobe Stage IIIB Non small cell lung carcinoma 4. Hypothyroidism 5. COPD PLAN: 1. Antibiotics coverage fas per the primary team 2. Broncho-dilators and O2 as per the primary team 3. Recommend repeat echocardiography in 1 month to further assess pericardial effusion severity 4. Chemotherapy and radiation therapy as per oncology/radiation oncology services Frank Sherman MD
--- NOTE | 2016-11-17 11:51 | PN ---
Progress Note (short form) - Note Progress Note: Radiation Oncology Coughed up brown sputum last night and became SOB, feels better this morning on NRM. Repeat CXR increased RUL opacification. Concern for recurrent airway obstruction. Plts have been as low as 59k but today >100k. Given progressive local disease and postobstructive sequelae, would add thoracic RT for local control. If he can be safely discharged, will plan RT GAURANG. He was given an appt time for the simulation. Otherwise will need to consider inpatient palliative RT. Cont Abx per ID, pulmonary f/u, pain mgt, monitor CBC. Discussed with Dr. You.
[2016-11-17 11:55] LABS: ALBUMIN 2.3 g/dl (3.4-5.0); ALK PHOS 175 U/L (45-117); ANION GAP 8 (8-16); BILIRUBIN,TOTAL 0.3 mg/dL (0.2-1.0); CALCIUM 8.2 mg/dL (8.5-10.1); CO2 32 mmol/L (21-32); CREATININE 0.9 mg/dL (0.7-1.3); GLUCOSE,RANDOM 87 mg/dL (74-106); SGOT/AST 20 U/L (15-37); SGPT/ALT 23 U/L (12-78)
[2016-11-17 13:47] LABS: ANISOCYTOSIS 2+; HYPOCHROMIA 2+; PLATELET ESTIMATE SLT DECREASED (NORMAL); TARGET CELLS FEW
--- NOTE | 2016-11-17 16:54 | PN ---
Progress Note (short form) - Note Progress Note: Patient seen and examined On oxygen. Remains SOB and dyspneic. Last Vital Signs Temp Pulse Resp BP Pulse Ox 97.6 F 76 18 117/67 91 L 11/17/16 15:11 11/17/16 15:11 11/17/16 15:11 11/17/16 15:11 11/17/16 10:54 HEENT: SILVINO, EOM Intact Oropharynx: No thrush, No mucositis Cor: RSR, No murmurs, No gallops Lungs: decreased breath sounds Right lung posteriorly with rhonchi Abd: Soft, Normal bowel sounds, No organomegaly Ext:No significant edema, clubbing Skin: No rashes, Integument intact CBC, BMP 11/17/16 11:00 11/17/16 11:00 Current Medications Generic Name Dose Route Start Last Admin Trade Name Freq PRN Reason Stop Dose Admin Albuterol Sulfate 1 amp 11/13/16 18:00 11/17/16 11:10 Ventolin 0.083% Nebulizer Soln - NEB 1 amp QIDR [facility] Administration Docusate Sodium 100 mg 11/11/16 16:14 11/16/16 22:42 Colace - PO 100 mg BID PRN Administration CONSTIPATION Folic Acid 1 mg 11/10/16 10:00 11/17/16 10:31 Folic Acid - PO 1 mg DAILY [facility] Administration Guaifenesin 10 ml 11/14/16 10:58 11/16/16 06:06 Robitussin - PO 10 ml Q4H PRN Administration COUGH Hydroxyzine HCl 25 mg 11/12/16 09:53 11/15/16 15:06 Atarax - PO 25 mg Q6H PRN Administration FOR ITCHING Levofloxacin 500 mg 11/16/16 14:00 11/17/16 06:05 Levaquin - PO 500 mg DAILY@0600 [facility] Administration Levothyroxine Sodium 125 mcg 11/14/16 07:00 11/17/16 06:07 Synthroid - PO 125 mcg AM [facility] Administration Magnesium Oxide 400 mg 11/15/16 10:00 11/17/16 10:31 Mag-Ox - PO 400 mg BID [facility] Administration Morphine Sulfate 15 mg 11/10/16 22:00 11/17/16 10:30 Ms Contin - PO 15 mg BID [facility] Administration Nicotine 14 mg 11/10/16 10:00 11/17/16 10:31 Nicoderm Patch - TD 14 mg DAILY [facility] Administration Oxycodone HCl 10 mg 11/16/16 20:57 11/17/16 14:09 Roxicodone - PO 10 mg Q4H PRN Administration PAIN Polyethylene Glycol 17 gm 11/13/16 10:00 11/17/16 10:32 Miralax (For Daily Use) - PO Not Given DAILY [facility] Senna 2 tab 11/11/16 16:14 11/16/16 22:45 Senna - PO 2 tab HS PRN Administration CONSTIPATION Valacyclovir HCl 1,000 mg 11/10/16 22:00 11/17/16 14:08 Valtrex - PO 1,000 mg TID [facility] Administration Impression: Adenoca of Lung Post obstructive pneumonia Opacification of right lung Anemia Hypothyroid Pain management Plan: If discharged-will need follow up with RT and with office. Problem List - Problems (1) Atelectasis Code(s): J98.11 - ATELECTASIS (2) Lung cancer Code(s): C34.90 - MALIGNANT NEOPLASM OF UNSP PART OF UNSP BRONCHUS OR LUNG Qualifiers: Laterality: right (3) Pericardial effusion Code(s): I31.3 - PERICARDIAL EFFUSION (NONINFLAMMATORY) (4) Anemia Code(s): D64.9 - ANEMIA, UNSPECIFIED Qualifiers: Bone marrow failure anemia type: pancytopenia, antineoplastic chemotherapy- induced Qualified Code(s): D61.810 - Antineoplastic chemotherapy induced pancytopenia (5) Hypothyroidism Code(s): E03.9 - HYPOTHYROIDISM, UNSPECIFIED Qualifiers: Hypothyroidism type: unspecified Qualified Code(s): E03.9 - Hypothyroidism, unspecified (6) Pneumonia Code(s): J18.9 - PNEUMONIA, UNSPECIFIED ORGANISM Qualifiers: Pneumonia type: due to unspecified organism Laterality: right Lung location: lower lobe of lung Qualified Code(s): J18.9 - Pneumonia, unspecified organism (7) Neutropenia Code(s): D70.9 - NEUTROPENIA, UNSPECIFIED (8) Rash Code(s): R21 - RASH AND OTHER NONSPECIFIC SKIN ERUPTION (9) Hyponatremia Code(s): E87.1 - HYPO-OSMOLALITY AND HYPONATREMIA
--- NOTE | 2016-11-17 20:52 | PN ---
Progress Note (short form) - Note Progress Note: 11/17/16 Pt ready to go home w/ O2 however he felt very weak and coughed up some blood tinged sputum Will check cbc in am This probably is just progression of his disease wc will be needed to be reinforced to him Problem List - Problems (1) Primary lung adenocarcinoma Code(s): C34.90 - MALIGNANT NEOPLASM OF UNSP PART OF UNSP BRONCHUS OR LUNG Qualifiers: Laterality: right Qualified Code(s): C34.91 - Malignant neoplasm of unspecified part of right bronchus or lung (2) Chest pain Code(s): R07.9 - CHEST PAIN, UNSPECIFIED Qualifiers: Chest pain type: chest pain on breathing Qualified Code(s): R07.1 - Chest pain on breathing (3) Acquired pancytopenia Code(s): D61.818 - OTHER PANCYTOPENIA (4) COPD (chronic obstructive pulmonary disease) Code(s): J44.9 - CHRONIC OBSTRUCTIVE PULMONARY DISEASE, UNSPECIFIED Qualifiers : COPD type: unspecified COPD Qualified Code(s): J44.9 - Chronic obstructive pulmonary disease, unspecified (5) Hypothyroidism Code(s): E03.9 - HYPOTHYROIDISM, UNSPECIFIED Qualifiers: Hypothyroidism type: unspecified Qualified Code(s): E03.9 - Hypothyroidism, unspecified (6) Pericardial effusion Code(s): I31.3 - PERICARDIAL EFFUSION (NONINFLAMMATORY)
[2016-11-17] MEDS: guaiFENesin 200 MG/10 ML 10 ML UNIT-DOSE CUPS PO PRN (21:37)
[2016-11-18] MEDS: oxyCODONE HCL 5 MG TABLET PO PRN ×4 (00:46→21:43)
[2016-11-18] MEDS: LEVOFLOXACIN 500 MG TABLET (FP) PO SCH (06:30)
[2016-11-18] MEDS: LEVOTHYROXINE NA 125 MCG TABLET (FP) PO SCH (06:30)
[2016-11-18] MEDS: ALBUTEROL SO4 0.083% IH SOL 2.5 MG/3 ML VIAL.NEB. NEB SCH ×4 (06:45→17:28)
[2016-11-18 07:43] LABS: MCH 19.3 pg (25.7-33.7); MCHC 31.9 g/dl (32.0-35.9); MEAN CELL VOLUME 60.5 fl (80-96); MEAN PLT VOLUME 8.4 fl (7.5-11.1); PLATELET COUNT 152 K/MM3 (134-434); RDW 14.7 % (11.9-15.9); WHITE BLOOD COUNT 12.1 K/mm3 (4.0-10.0)
[2016-11-18 08:37] LABS: ALK PHOS 143 U/L (45-117); ANION GAP 11 (8-16); BILIRUBIN,TOTAL 0.2 mg/dL (0.2-1.0); CALCIUM 7.7 mg/dL (8.5-10.1); CO2 29 mmol/L (21-32); CREATININE 0.9 mg/dL (0.7-1.3); GLUCOSE,RANDOM 71 mg/dL (74-106); SGOT/AST 15 U/L (15-37); SGPT/ALT 16 U/L (12-78); TOT PROT 5.2 g/dl (6.4-8.2)
[2016-11-18] MEDS: FOLIC ACID 1 MG TABLET (FP) PO SCH (09:18)
[2016-11-18] MEDS: MAGNESIUM OXIDE 400 MG TABLET (FP) PO SCH ×2 (09:18→21:43)
[2016-11-18] MEDS: NICOTINE 14 MG/24 HOURS TOPICAL PATCH TD SCH (09:19)
[2016-11-18] MEDS: POLYETHYLENE GLYCOL 3350 119 GM BTL PO SCH (09:19)
--- NOTE | 2016-11-18 13:16 | PN ---
Progress Note, Physician History of Present Illness: PULMONARY FEELING BETTER,+COUGH BLOOD TINGED SECRETIONS - Current Medication List Current Medications: Active Medications Albuterol Sulfate (Ventolin 0.083% Nebulizer Soln -) 1 amp NEB QIDR [facility] Last Admin: 11/18/16 11:01 Dose: 1 amp Docusate Sodium (Colace -) 100 mg PO BID PRN PRN Reason: CONSTIPATION Last Admin: 11/16/16 22:42 Dose: 100 mg Folic Acid (Folic Acid -) 1 mg PO DAILY [facility] Last Admin: 11/18/16 09:18 Dose: 1 mg Guaifenesin (Robitussin -) 10 ml PO Q4H PRN PRN Reason: COUGH Last Admin: 11/17/16 21:37 Dose: 10 ml Hydroxyzine HCl (Atarax -) 25 mg PO Q6H PRN PRN Reason: FOR ITCHING Last Admin: 11/15/16 15:06 Dose: 25 mg Levofloxacin (Levaquin -) 500 mg PO DAILY@0600 [facility] Last Admin: 11/18/16 06:30 Dose: 500 mg Levothyroxine Sodium (Synthroid -) 125 mcg PO AM [facility] Last Admin: 11/18/16 06:30 Dose: 125 mcg Magnesium Oxide (Mag-Ox -) 400 mg PO BID [facility] Last Admin: 11/18/16 09:18 Dose: 400 mg Nicotine (Nicoderm Patch -) 14 mg TD DAILY [facility] Last Admin: 11/18/16 09:19 Dose: 14 mg Oxycodone HCl (Roxicodone -) 10 mg PO Q4H PRN PRN Reason: PAIN Last Admin: 11/18/16 09:17 Dose: 10 mg Polyethylene Glycol (Miralax (For Daily Use) -) 17 gm PO DAILY [facility] Last Admin: 11/18/16 09:19 Dose: Not Given Senna (Senna -) 2 tab PO HS PRN PRN Reason: CONSTIPATION Last Admin: 11/16/16 22:45 Dose: 2 tab - Objective Vital Signs: Vital Signs Temperature 97.8 F 11/18/16 05:29 Pulse Rate 89 11/18/16 10:58 Respiratory Rate 18 11/18/16 05:29 Blood Pressure 90/58 11/18/16 05:29 O2 Sat by Pulse Oximetry (%) 95 11/18/16 10:58 Constitutional: Yes: Calm, Thin Eyes: Yes: WNL HENT: Yes: WNL Neck: Yes: WNL Cardiovascular: Yes: Regular Rate and Rhythm, S1, S2 Respiratory: Yes: Diminished (DIMINISHED BS ON R) Gastrointestinal: Yes: Normal Bowel Sounds, Soft Extremities: Yes: WNL, Other (CLUBBING) Labs: CBC, BMP 11/18/16 06:00 11/18/16 06:00 INR, PTT INR 1.23 (0.82-1.09) H 11/09/16 18:45 Assessment/Plan Problem List - Problems (1) Primary lung adenocarcinoma Code(s): C34.90 - MALIGNANT NEOPLASM OF UNSP PART OF UNSP BRONCHUS OR LUNG (2) Pneumonia Code(s): J18.9 - PNEUMONIA, UNSPECIFIED ORGANISM Qualifiers: Pneumonia type: due to unspecified organism Laterality: right Lung location: lower lobe of lung Qualified Code(s): J18.9 - Pneumonia, unspecified organism (3) Pericardial effusion Code(s): I31.3 - PERICARDIAL EFFUSION (NONINFLAMMATORY) (4) COPD (chronic obstructive pulmonary disease) Code(s): J44.9 - CHRONIC OBSTRUCTIVE PULMONARY DISEASE, UNSPECIFIED Qualifiers : COPD type: unspecified COPD Qualified Code(s): J44.9 - Chronic obstructive pulmonary disease, unspecified (5) Atelectasis Code(s): J98.11 - ATELECTASIS Assessment/Plan Chest pain improved NSCLC (Adeno) COPD Atelectasis Recent Chemo - RT - pain control - chest PT - incentive spirometry - inhaled bronchodilators - DVT prophylaxis DR ARTEAGA
[2016-11-18] MEDS ORDERED: PT OWN MED DRAWER 7, Y5N ONE (14:46)
--- NOTE | 2016-11-18 15:54 | PN ---
Progress Note (short form) - Note Progress Note: Patient seen and examined feels better no fevers/chills Last Vital Signs Temp Pulse Resp BP Pulse Ox 98.4 F 83 18 114/71 95 11/18/16 14:31 11/18/16 14:31 11/18/16 14:31 11/18/16 14:31 11/18/16 10:58 HEENT: SILVINO, EOM Intact Cor: RSR, No murmurs, No gallops Lungs: decreased rt. breath sounds Abd: Soft, Normal bowel sounds, No organomegaly Ext:No significant edema Abnormal Lab Results 11/18/16 11/18/16 06:00 06:00 WBC 12.1 H Hgb 8.1 L D Hct 25.3 L MCV 60.5 L MCHC 31.9 L Sodium 134 L Chloride 94 L BUN 6 L Random Glucose 71 L Calcium 7.7 L Alkaline Phosphatase 143 H Total Protein 5.2 L Albumin 2.0 L Current Medications Albuterol Sulfate (Ventolin 0.083% Nebulizer Soln -) 1 amp NEB QIDR [facility] Last Admin: 11/18/16 11:01 Dose: 1 amp Docusate Sodium (Colace -) 100 mg PO BID PRN PRN Reason: CONSTIPATION Last Admin: 11/16/16 22:42 Dose: 100 mg Folic Acid (Folic Acid -) 1 mg PO DAILY [facility] Last Admin: 11/18/16 09:18 Dose: 1 mg Guaifenesin (Robitussin -) 10 ml PO Q4H PRN PRN Reason: COUGH Last Admin: 11/17/16 21:37 Dose: 10 ml Hydroxyzine HCl (Atarax -) 25 mg PO Q6H PRN PRN Reason: FOR ITCHING Last Admin: 11/15/16 15:06 Dose: 25 mg Levofloxacin (Levaquin -) 500 mg PO DAILY@0600 [facility] Last Admin: 11/18/16 06:30 Dose: 500 mg Levothyroxine Sodium (Synthroid -) 125 mcg PO AM [facility] Last Admin: 11/18/16 06:30 Dose: 125 mcg Magnesium Oxide (Mag-Ox -) 400 mg PO BID [facility] Last Admin: 11/18/16 09:18 Dose: 400 mg Nicotine (Nicoderm Patch -) 14 mg TD DAILY [facility] Last Admin: 01/25/17 09:19 Dose: 14 mg Oxycodone HCl (Roxicodone -) 10 mg PO Q4H PRN PRN Reason: PAIN Last Admin: 11/18/16 14:49 Dose: 10 mg Polyethylene Glycol (Miralax (For Daily Use) -) 17 gm PO DAILY [facility] Last Admin: 11/18/16 09:19 Dose: Not Given Senna (Senna -) 2 tab PO HS PRN PRN Reason: CONSTIPATION Last Admin: 11/16/16 22:45 Dose: 2 tab A/P 50 y/o patient with 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 adrenal mets--with hilar/bilateral mediastinal LAD a/w right upper chest pain and progressive postobstructive atelectasis and PNA of RLL 2/2 to airway obstruction. Switching zosyn to levaquin discussed with /id team had mild hives/itching--?? zosyn SOB--much improved will need home oxygen plan to get RT planning upon discharge thrombocytopenia--? chemo / ? zosyn resolved d/c planning --on home O2 plan to be seen by rad-onc after discharge
[2016-11-18] MEDS ORDERED: guaiFENesin 200 MG/10 ML 10 ML UNIT-DOSE CUPS PO PRN (16:45)
[2016-11-19] MEDS: guaiFENesin 200 MG/10 ML 10 ML UNIT-DOSE CUPS PO PRN ×2 (01:47→06:47)
[2016-11-19] MEDS: oxyCODONE HCL 5 MG TABLET PO PRN ×2 (01:47→06:46)
[2016-11-19 05:55] VITALS: TEMP 97.9
[2016-11-19] MEDS ORDERED: PT OWN MED DRAWER 7, Y5N ONE (06:45)
[2016-11-19] MEDS: LEVOFLOXACIN 500 MG TABLET (FP) PO SCH (06:46)
[2016-11-19] MEDS: LEVOTHYROXINE NA 125 MCG TABLET (FP) PO SCH (06:46)
[2016-11-19 07:17] LABS: MCH 20.3 pg (25.7-33.7); MCHC 32.7 g/dl (32.0-35.9); MEAN PLT VOLUME 7.7 fl (7.5-11.1); PLATELET COUNT 270 K/MM3 (134-434); RDW 15.1 % (11.9-15.9); WHITE BLOOD COUNT 14.6 K/mm3 (4.0-10.0)
[2016-11-19 08:08] LABS: ALBUMIN 2.1 g/dl (3.4-5.0); ALK PHOS 144 U/L (45-117); ANION GAP 13 (8-16); BILIRUBIN,TOTAL 0.3 mg/dL (0.2-1.0); CALCIUM 8.1 mg/dL (8.5-10.1); CO2 29 mmol/L (21-32); CREATININE 0.9 mg/dL (0.7-1.3); GLUCOSE,RANDOM 73 mg/dL (74-106); SGOT/AST 26 U/L (15-37); SGPT/ALT 19 U/L (12-78); TOT PROT 5.7 g/dl (6.4-8.2)
[2016-11-19 08:59] LABS: HYPOCHROMIA 3+; MICROCYTOSIS 2+
[2016-11-19 09:14] VITALS: BP 116/75; PULSE 80
== END 2016-11-19 09:12 | disposition home or self-care (01) | DRG 136 ==
LOC: JER 18:10 → JERBED 20:59 → UNDOADMIN 20:59 → JERBED 11-10 03:42 → J7W 11-10 12:56
PROVIDERS: ADMIT Internal Medicine; ATTEND Internal Medicine
PROC: 30233N1 Transfusion of Nonautologous Red Blood Cells into Peripheral Vein, Percutaneous Approach (ICD-10-PCS; principal; 2016-11-18)
DX: C34.11 Malignant neoplasm of upper lobe, right bronchus or lung (principal); J44.9 Chronic obstructive pulmonary disease, unspecified; E03.9 Hypothyroidism, unspecified; F17.210 Nicotine dependence, cigarettes, uncomplicated; J18.9 Pneumonia, unspecified organism; I31.3 Pericardial effusion (noninflammatory); J98.11 Atelectasis; R07.89 Other chest pain; E87.1 Hypo-osmolality and hyponatremia; E87.6 Hypokalemia; B02.9 Zoster without complications; D61.810 Antineoplastic chemotherapy induced pancytopenia; D64.9 Anemia, unspecified; R21 Rash and other nonspecific skin eruption; D69.6 Thrombocytopenia, unspecified
CPT/HCPCS: 36415; 36430; 71010-TC; 71020-TC; 71275-TC; 80048; 80053; 82550; 83735; 83930; 83935; 84443; 84484; 85025; 85610; 85730; 86022; 86850; 86900; 86901; 86922; 87040; 87070; 87077; 87205; 87899; 93005; 93010; 94640; 94761; 99285-25; J1442; J1644; P9038; P9058

== ENCOUNTER 2016-12-14 10:58 | Inpatient (IN) | payer OTHER ==
[2016-12-14 11:03] VITALS: BMI 19.1
--- NOTE | 2016-12-14 11:16 | PDOC ---
History of Present Illness <Vinod Noble - Last Filed: 12/14/16 13:03> - General History Source: Patient Exam Limitations: No Limitations - History of Present Illness Initial Comments: 12/14/16 11:41 The patient is a 50-year-old male with significant medical history of lung adenocarcinoma (4th week of radiation and chemotherapy) diagnosed in July,, COPD, anemia, hypothyroidism and Alzheimer's who presents to the ED with dizziness for 4 days and hypotension. He saw Dr. Lord on Wednesday for dizziness and weight loss and he gave him Ensure to help with the weight loss. He notes that he has been experiencing severe dizziness. He notes that he had a radiation therapy today and was found hypotensive. He brought the following BP vitals with him from today Sitting 98/79, Supine 114/89, Standing 86/68 Oncologist - Dr. Lord PCP - Dr. Josselin Rolon SH: former smoker <Morelia Alvarez - Last Filed: 12/14/16 14:39> - General Chief Complaint: Lightheaded Stated Complaint: DEHYDRATED/ DIZZINESS (REFERRED) Time Seen by Provider: 12/14/16 11:14 Past History - Past Medical History Cancer: Yes (LUNG ADENOCARCINOMA,Starts Chemo ) Thyroid Disease: Yes - Surgical History Lung Surgery: (lung biopsy jul 29) - Psycho/Social/Smoking Cessation Hx Anxiety: No Suicidal Ideation: No Smoking Status: Yes Smoking History: Unknown if ever smoked Have you smoked in the past 12 months: No Number of Cigarettes Smoked Daily: 12 If you are a former smoker, when did you quit?: 1 wk ago Information on smoking cessation initiated: No 'Breaking Loose' booklet given: 11/09/16 Hx Alcohol Use: Yes (CAN OF BEER A DAY) Drug/Substance Use Hx: No Substance Use Type: None <Vinod Noble - Last Filed: 12/14/16 13:03> <Morelia Alvarze - Last Filed: 12/14/16 14:39> - Past Medical History Allergies/Adverse Reactions: Allergies Allergy/AdvReac Type Severity Reaction Status Date / Time No Known Allergies Allergy Verified 12/14/16 11:03 Home Medications: Ambulatory Orders Alprazolam [Alprazolam Odt] 0.5 mg PO DAILY 12/14/16 Folic Acid 1 mg PO DAILY 12/14/16 Levothyroxine [Synthroid -] 100 mcg PO DAILY 12/14/16 Magnesium 400 mg PO DAILY 12/14/16 Oxycodone HCl/Acetaminophen [Oxycodone-Acetaminophen 5-325] 1 each PO QID Review of Systems - Review of Systems Able to Perform ROS?: Yes Comments:: 12/14/16 11:42 GENERAL/CONSTITUTIONAL: No fever or chills. No weakness. HEAD, EYES, EARS, NOSE AND THROAT: No change in vision. No ear pain or discharge. No sore throat. CARDIOVASCULAR: No chest pain or shortness of breath. RESPIRATORY: No cough, wheezing, or hemoptysis. GASTROINTESTINAL: No nausea, vomiting, diarrhea or constipation. GENITOURINARY: No dysuria, frequency, or change in urination. MUSCULOSKELETAL: No joint or muscle swelling or pain. No neck or back pain. SKIN: No rash NEUROLOGIC: +dizziness. No headache, vertigo, loss of consciousness, or change in strength/sensation. ENDOCRINE: No increased thirst. No abnormal weight change. HEMATOLOGIC/LYMPHATIC: No anemia, easy bleeding, or history of blood clots. ALLERGIC/IMMUNOLOGIC: No hives or skin allergy. <Morelia Alvarez - Last Filed: 12/14/16 14:39> *Physical Exam - Vital Signs Last Vital Signs Temp Pulse Resp BP Pulse Ox 97.7 F 116 H 18 107/75 96 12/14/16 11:00 12/14/16 11:00 12/14/16 11:00 12/14/16 11:00 12/14/16 11:00 <Vinod Noble - Last Filed: 12/14/16 13:03> - Vital Signs Last Vital Signs Temp Pulse Resp BP Pulse Ox 97.7 F 116 H 18 107/75 96 12/14/16 11:00 12/14/16 11:00 12/14/16 11:00 12/14/16 11:00 12/14/16 11:00 - Physical Exam Comments: 12/14/16 11:42 GENERAL: Awake, alert, and fully oriented, in no acute distress HEAD: No signs of trauma EYES: PERRLA, EOMI, sclera anicteric, conjunctiva clear ENT: Auricles normal inspection, hearing grossly normal, nares patent, oropharynx clear without exudates. Moist mucosa NECK: Normal ROM, supple, no lymphadenopathy, JVD, or masses LUNGS: Breath sounds equal, clear to auscultation bilaterally. No wheezes, and no crackles HEART: Regular rate and rhythm, normal S1 and S2, no murmurs, rubs or gallops ABDOMEN: Soft, nontender, normoactive bowel sounds. No guarding, no rebound. No masses EXTREMITIES: Normal range of motion, no edema. No clubbing or cyanosis. No cords, erythema, or tenderness NEUROLOGICAL: Cranial nerves II through XII grossly intact. Normal speech, normal gait SKIN: Warm, Dry, normal turgor, no rashes or lesions noted. <Morelia Alvarez - Last Filed: 12/14/16 14:39> ED Treatment Course - LABORATORY CBC & Chemistry Diagram: 12/14/16 11:26 12/14/16 11:26 <Vinod Noble - Last Filed: 12/14/16 13:03> - LABORATORY CBC & Chemistry Diagram: 12/14/16 11:26 12/14/16 11:26 - RADIOLOGY Radiology Studies Ordered: 12/14/16 12:32 EXAM#: TYPE/EXAM: RESULT: RAD/CHEST X-RAY PORTABLE* Chest: HISTORY: Getting radiation for lung cancer. Frontal view of the chest is provided. Prior study dated November 16, 2016. There is increased density in the right hemithorax again seen with slight improved aeration of the right mid and lower lung zones. Right-sided Port-A-Cath tip projects over the SVC right atrial junction. Left lung field appears clear. Cardiac silhouette is within normal limits for size. IMPRESSION: Opacification of the right lung is again seen with improved aeration in the right mid and lower lung zone. <Morelia Alvarez - Last Filed: 12/14/16 14:39> Medical Decision Making - Medical Decision Making 12/14/16 11:43 50-year-old male with significant medical history of lung adenocarcinoma (4th week of radiation and chemotherapy) diagnosed in July,, COPD, anemia, hypothyroidism and Alzheimer's who presents to the ED with dizziness for 4 days and hypotension. He had BP vitals today while getting radiation today Sitting 98/79, Supine 114/89, Standing 86/68. Will order CT and labs. Will provide supportive care in the meantime and reassess when the results are back. 12/14/16 12:33 CXR reviewed. Await[address] CT and lab results. 12/14/16 12:36 A call was placed to Dr. Lord at his service. Awaiting a call back. 12/14/16 12:[address] Lord. 12/14/16 12:59 A call was placed to Dr. Reyes to her office. Case discussed. 12/14/16 14:39 A call was placed to Dr. Reyes, and she was notified of patient's CT results and that he will need an MRI of the brain with and without contrast. <Morelia Alvarez - Last Filed: 12/14/16 14:39> *DC/Admit/Observation/Transfer - Discharge Dispostion Admit: Yes - Attestations Physician Attestion: 12/14/16 11:15 I, Dr. Vinod Noble, attest that this document has been prepared under my direction and personally reviewed by me in its entirety. I further attest, that it accurately reflects all work, treatment, procedures and medical decision -making performed by me. <Vinod Noble - Last Filed: 12/14/16 13:03> - Attestations Scribe Attestion: 12/14/16 11:45 Documentation prepared by YADY Arzola, acting as forensic medical examiner for Vinod Noble MD/. <Morelia Alvarez - Last Filed: 12/14/16 14:39> Diagnosis at time of Disposition: Orthostatic hypotension, Hypovolemia, Nausea, Dehydration Lung cancer, upper lobe Qualifiers: Laterality: right Qualified Code(s): C34.11 - Malignant neoplasm of upper lobe , right bronchus or lung - Discharge Dispostion Condition at time of disposition: Unchanged/Unknown - Referrals
[2016-12-14] MEDS ORDERED: SODIUM CHLORIDE 2,000 ML IV STA (11:27)
[2016-12-14 11:53] LABS: BASOPHIL 0.5 % (0-2.0); EOSINOPHIL 2.1 % (0-4.5); MCHC 31.9 g/dl (32.0-35.9); MEAN CELL VOLUME 62.6 fl (80-96); MEAN PLT VOLUME 8.4 fl (7.5-11.1); NEUTROPHILS 81.1 % (42.8-82.8); PLATELET COUNT 97 K/MM3 (134-434); RDW 16.1 % (11.9-15.9); WHITE BLOOD COUNT 12.3 K/mm3 (4.0-10.0)
[2016-12-14 12:04] LABS: INR 1.19 (0.82-1.09); PROTHROMBIN TIME (PATIENT) 13.1 SEC (9.98-11.88)
[2016-12-14 12:09] LABS: ALBUMIN 2.4 g/dl (3.4-5.0); ANION GAP 9 (8-16); BILIRUBIN,TOTAL 0.2 mg/dL (0.2-1.0); CALCIUM 8.7 mg/dL (8.5-10.1); CO2 32 mmol/L (21-32); CREATININE 0.9 mg/dL (0.7-1.3); GLUCOSE,RANDOM 87 mg/dL (74-106); SGOT/AST 15 U/L (15-37); SGPT/ALT 14 U/L (12-78); TOT PROT 6.2 g/dl (6.4-8.2)
[2016-12-14 12:10] LABS: ALK PHOS 130 U/L (45-117)
[2016-12-14 13:09] LABS: HYPOCHROMIA 3+; MICROCYTOSIS 2+; PLATELET ESTIMATE DECREASED (NORMAL)
[2016-12-14 13:37] LABS: TROPONIN I < 0.02 ng/ml (0.00-0.05)
--- NOTE | 2016-12-14 16:09 | EKG ---
Test Reason : Blood Pressure : / mmHG Vent. Rate : 092 BPM Atrial Rate : 092 BPM P-R Int : 146 ms QRS Dur : 088 ms QT Int : 364 ms P-R-T Axes : 062 069 021 degrees QTc Int : 450 ms NORMAL SINUS RHYTHM NONSPECIFIC T WAVE ABNORMALITY ABNORMAL ECG WHEN COMPARED WITH ECG OF 09-NOV-2016 18:18, T WAVE VARIATION Confirmed by GUERA HAAS MD ([id number]) on 12/14/2016 4:09:36 PM Referred By: Confirmed By:GUERA HAAS MD
[2016-12-14] MEDS ORDERED: oxyCODONE HCL 5 MG TABLET PO ONE (22:15)
[2016-12-14] MEDS ORDERED: ACETAMINOPHEN 325 MG TABLET (FP) PO ONE (22:15)
[2016-12-15] MEDS ORDERED: guaiFENesin 200 MG/10 ML 10 ML UNIT-DOSE CUPS PO ONE (01:34)
[2016-12-15] MEDS ORDERED: ACETAMINOPHEN 325 MG TABLET (FP) PO ONE (05:30)
[2016-12-15] MEDS ORDERED: oxyCODONE HCL 5 MG TABLET PO ONE (05:30)
[2016-12-15] MEDS ORDERED: ALPRAZOLAM 0.5 MG PO SCH (11:00)
[2016-12-15] MEDS ORDERED: ENOXAPARIN NA (PORCINE) 40 MG/0.4 ML DISP.SYRIN SQ SCH (11:15)
[2016-12-15 11:34] LABS: BASOPHIL 0.6 % (0-2.0); EOSINOPHIL 2.4 % (0-4.5); MCH 20.1 pg (25.7-33.7); MCHC 31.8 g/dl (32.0-35.9); MEAN CELL VOLUME 63.2 fl (80-96); MEAN PLT VOLUME 8.1 fl (7.5-11.1); NEUTROPHILS 78.7 % (42.8-82.8); PLATELET COUNT 127 K/MM3 (134-434); RDW 15.6 % (11.9-15.9); WHITE BLOOD COUNT 7.8 K/mm3 (4.0-10.0)
[2016-12-15 12:06] LABS: ALK PHOS 104 U/L (45-117); ANION GAP 7 (8-16); BILIRUBIN,TOTAL 0.2 mg/dL (0.2-1.0); CALCIUM 8.3 mg/dL (8.5-10.1); CO2 33 mmol/L (21-32); CREATININE 0.7 mg/dL (0.7-1.3); GLUCOSE,RANDOM 84 mg/dL (74-106); SGOT/AST 10 U/L (15-37); SGPT/ALT 9 U/L (12-78); TOT PROT 5.2 g/dl (6.4-8.2)
[2016-12-15] MEDS: FOLIC ACID 1 MG TABLET (FP) PO SCH (12:50)
[2016-12-15] MEDS: LEVOTHYROXINE NA 100 MCG TABLET (FP) PO SCH (12:50)
[2016-12-15] MEDS: MAGNESIUM OXIDE 400 MG TABLET (FP) PO SCH (12:50)
[2016-12-15] MEDS: oxyCODONE HCL 5 MG TABLET PO PRN ×2 (13:09→21:49)
--- NOTE | 2016-12-15 13:19 | CONSULT ---
Consult Consult Specialty:: infectious diseases Referred by:: Reason for Consultation:: leukocytosis - History of Present Illness Chief Complaint: dizziness History of Present Illness: 50-year-old male with significant medical history of lung adenocarcinoma (4th week of radiation and chemotherapy) diagnosed in July,, COPD, anemia, hypothyroidism and Alzheimer's who presents to the ED with dizziness for 4 days and hypotension. He notes that he has been experiencing severe dizziness. He notes that he had a radiation therapy and was found hypotensive. 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 No: O2 Dependent Endocrine: Yes: Hypothyroidism. No: Diabetes Mellitus - Alcohol/Substance Use Hx Alcohol Use: Yes (CAN OF BEER A DAY) - Smoking History Smoking history: Unknown if ever smoked Have you smoked in the past 12 months: No Aproximately how many cigarettes per day: 12 If you are a former smoker, when did you quit?: 1 wk ago - Social History History of Recent Travel: No Home Medications - Allergies Allergies/Adverse Reactions: Allergies Allergy/AdvReac Type Severity Reaction Status Date / Time No Known Allergies Allergy Verified 12/14/16 11:03 - Home Medications Home Medications: Ambulatory Orders Alprazolam [Alprazolam Odt] 0.5 mg PO DAILY 12/14/16 Folic Acid 1 mg PO DAILY 12/14/16 Levothyroxine [Synthroid -] 100 mcg PO DAILY 12/14/16 Magnesium 400 mg PO DAILY 12/14/16 Oxycodone HCl/Acetaminophen [Oxycodone-Acetaminophen 5-325] 1 each PO QID Review of Systems - Review of Systems Constitutional: reports: Weakness Eyes: reports: No Symptoms HENT: reports: No Symptoms Neck: reports: No Symptoms Cardiovascular: reports: No Symptoms Respiratory: reports: No Symptoms Gastrointestinal: reports: Melena Genitourinary: reports: No Symptoms Musculoskeletal: reports: No Symptoms Integumentary: reports: No Symptoms Neurological: reports: Dizziness Endocrine: reports: No Symptoms Hematology/Lymphatic: reports: No Symptoms Psychiatric: reports: No Symptoms Physical Exam Vital Signs: Vital Signs Temperature 97.6 F 12/15/16 06:00 Pulse Rate 72 12/15/16 06:00 Respiratory Rate 20 12/15/16 06:00 Blood Pressure 118/76 12/15/16 06:00 O2 Sat by Pulse Oximetry (%) 97 12/14/16 20:44 Constitutional: Yes: No Distress, Calm Eyes: Yes: Conjunctiva Clear HENT: Yes: Atraumatic Neck: Yes: Supple, Trachea Midline Cardiovascular: Yes: Regular Rate and Rhythm, Tachycardia Respiratory: Yes: Regular, CTA Bilaterally Gastrointestinal: Yes: Normal Bowel Sounds, Soft Musculoskeletal: Yes: WNL Extremities: Yes: WNL Integumentary: Yes: WNL Neurological: Yes: Alert, Oriented Psychiatric: Yes: Alert, Oriented Labs: CBC, BMP 12/15/16 11:29 12/15/16 11:29 Imaging - Results Chest X-ray: Report Reviewed, Image Reviewed Cat Scan: Report Reviewed, Image Reviewed Assessment/Plan after looking at the [patient and his history i dont see any evidence of infection,but what i am worried about is if his dizziness is due to loss of blood from the gi tract as he had Santa as he mentioned to me His h and H is on the lower side currently he is stable ca of the lung dizziness santa hypotension plan hydration i think if patient continues to have santa should be evalauted by gi ct of the abdomen to see any finding supportive care close monitoring for hypotension no abx at this time
--- NOTE | 2016-12-15 16:06 | HP ---
Admitting History and Physical - Admission Chief Complaint: dizzyness History of Present Illness: Pt is a 51 y/o male w/ poorly differentiated adenocarcinoma of lung, anxiety, hypothyroidism, pericardial effusion, and pancytopenia. Pt last received chemotx about 3 weeks and was due again this week. On 12/14/16 pt went for his RT but complained of lightheadedness and dizzyness and he was sent to the ER. Pt states that this has been happening for the past 3-4 days. Pt denies any N/V and no abdominal pain. He was found to be orthostatic and admitted. He states that his bowel movements have been normal but this am after eating he noticed dark stools. A cbc this am showed Hgb went from 8.9 to 7.9 and blood transfusion was ordered. Pt denies any chest pain and no palpitations or SOB. - Past Medical History Cardiovascular: Yes: Other (Pericardial effusion w/ tamponade) Pulmonary: Yes: COPD, Other (Adenocarcinoma lung ?mets to adrenals Pleural effusion). No: O2 Dependent Heme/Onc: Yes: Anemia, Other (Adenocarcinoma lung cancer Pancytopenia) Endocrine: Yes: Hypothyroidism. No: Diabetes Mellitus - Smoking History Smoking history: Unknown if ever smoked Have you smoked in the past 12 months: No Aproximately how many cigarettes per day: 12 If you are a former smoker, when did you quit?: 1 wk ago - Alcohol/Substance Use Hx Alcohol Use: Yes (CAN OF BEER A DAY) - Social History History of Recent Travel: No Home Medications - Allergies Allergies/Adverse Reactions: Allergies Allergy/AdvReac Type Severity Reaction Status Date / Time No Known Allergies Allergy Verified 12/14/16 11:03 - Home Medications Home Medications: Ambulatory Orders Alprazolam [Alprazolam Odt] 0.5 mg PO DAILY 12/14/16 Folic Acid 1 mg PO DAILY 12/14/16 Levothyroxine [Synthroid -] 100 mcg PO DAILY 12/14/16 Magnesium 400 mg PO DAILY 12/14/16 Oxycodone HCl/Acetaminophen [Oxycodone-Acetaminophen 5-325] 1 each PO QID Review of Systems - Review of Systems Constitutional: reports: Loss of Appetite, Unintentional Wgt. Loss Eyes: reports: No Symptoms HENT: reports: No Symptoms Neck: reports: No Symptoms Cardiovascular: reports: Shortness of Breath Respiratory: reports: SOB Gastrointestinal: reports: Melena Genitourinary: reports: No Symptoms Physical Examination Vital Signs: Vital Signs Temperature 97.6 F 12/15/16 10:00 Pulse Rate 77 12/15/16 10:00 Respiratory Rate 20 12/15/16 10:00 Blood Pressure 95/64 12/15/16 10:00 O2 Sat by Pulse Oximetry (%) 100 12/15/16 09:00 Constitutional: Yes: Cachectic Eyes: Yes: WNL HENT: Yes: WNL Neck: Yes: WNL Cardiovascular: Yes: WNL, Regular Rate and Rhythm Respiratory: Yes: Other (Coarse bs b/l) Gastrointestinal: Yes: WNL, Normal Bowel Sounds, Soft Musculoskeletal: Yes: WNL Extremities: Yes: WNL Edema: No Neurological: Yes: WNL, Alert, Oriented Labs: CBC, BMP 12/15/16 11:29 12/15/16 11:29 Problem List - Problems (1) GI bleed Assessment/Plan: GI consult Transfuse 2 units PRBC's Follow serial H/H NPO IV protonix Code(s): K92.2 - GASTROINTESTINAL HEMORRHAGE, UNSPECIFIED (2) Primary lung adenocarcinoma Assessment/Plan: As per onco Code(s): C34.90 - MALIGNANT NEOPLASM OF UNSP PART OF UNSP BRONCHUS OR LUNG Qualifiers: Laterality: right Qualified Code(s): C34.91 - Malignant neoplasm of unspecified part of right bronchus or lung (3) Orthostatic hypotension Assessment/Plan: Due to GI bleed Cont IVF Transfuse Pt is not tachy Code(s): I95.1 - ORTHOSTATIC HYPOTENSION (4) Pancytopenia Code(s): D61.818 - OTHER PANCYTOPENIA (5) Pericardial effusion Code(s): I31.3 - PERICARDIAL EFFUSION (NONINFLAMMATORY) (6) COPD (chronic obstructive pulmonary disease) Assessment/Plan: Cont nebulizers Code(s): J44.9 - CHRONIC OBSTRUCTIVE PULMONARY DISEASE, UNSPECIFIED Qualifiers : COPD type: unspecified COPD Qualified Code(s): J44.9 - Chronic obstructive pulmonary disease, unspecified (7) Hypothyroidism Assessment/Plan: Cont levothyroxine Code(s): E03.9 - HYPOTHYROIDISM, UNSPECIFIED Qualifiers: Hypothyroidism type: unspecified Qualified Code(s): E03.9 - Hypothyroidism, unspecified
[2016-12-15] MEDS ORDERED: PANTOPRAZOLE SODIUM 100 ML IVPB SCH (18:45)
--- NOTE | 2016-12-15 20:02 | CON.GI ---
Consult Consult Specialty:: GI Referred by:: Dr Reyes Reason for Consultation:: melena - History of Present Illness Chief Complaint: Patient with symptomatic anemia History of Present Illness: 51 M with h/o poorly differentiated adeno Ca of lung diagnosed late 2016, inoperable, so treated with chemo and RT which are both ongoing. He has had pancytopenia in the past, unclear if related to chemo. He is now admitted with a single episode of formed black stool and anemia. He has been feeling lightheaded and is admitted for possible UGIB. He denies abdominal pain, no hematemesis or NSAID use for the past 2 months. He has been taking Pepto Bismol for the past several days including the days just prior to and the day of admission. He states he was "gulping it down" suggesting ingestion of a significant amount. 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 No: O2 Dependent Endocrine: Yes: Hypothyroidism. No: Diabetes Mellitus - Alcohol/Substance Use Hx Alcohol Use: Yes (CAN OF BEER A DAY) - Smoking History Smoking history: Unknown if ever smoked Have you smoked in the past 12 months: No Aproximately how many cigarettes per day: 12 If you are a former smoker, when did you quit?: 1 wk ago - Social History History of Recent Travel: No Home Medications - Allergies Allergies/Adverse Reactions: Allergies Allergy/AdvReac Type Severity Reaction Status Date / Time No Known Allergies Allergy Verified 12/14/16 11:03 - Home Medications Home Medications: Ambulatory Orders Alprazolam [Alprazolam Odt] 0.5 mg PO DAILY 12/14/16 Folic Acid 1 mg PO DAILY 12/14/16 Levothyroxine [Synthroid -] 100 mcg PO DAILY 12/14/16 Magnesium 400 mg PO DAILY 12/14/16 Oxycodone HCl/Acetaminophen [Oxycodone-Acetaminophen 5-325] 1 each PO QID Physical Exam-GI Vital Signs: Vital Signs Temperature 97.9 F 12/15/16 19:03 Pulse Rate 80 12/15/16 19:03 Respiratory Rate 20 12/15/16 19:03 Blood Pressure 120/57 12/15/16 19:03 O2 Sat by Pulse Oximetry (%) 100 12/15/16 09:00 Constitutional: Yes: Anxious, Mild Distress, Thin HENT: Yes: Normocephalic Neck: Yes: Supple Cardiovascular: Yes: Regular Rate and Rhythm Respiratory: Yes: Regular, Tachypnea Gastrointestinal Inspection: Yes: WNL ...Auscultate: Yes: Normoactive Bowel Sounds ...Palpate: Yes: Soft. No: Tenderness Labs: CBC, BMP 12/15/16 11:29 12/15/16 11:29 INR, PTT INR 1.19 (0.82-1.09) H 12/14/16 11:26 Imaging - Results Cat Scan: Report Reviewed (CT brain with what appears to be a met in the cerebellum) Assessment/Plan 51 M with above history admitted with lightheadedness and instability, anemia and black formed stool x1. Asseess/Plan Black stool likely secondary to Pepto Bismol ingestion, taken for "upset stomach from eating too much [employer]" Start Protonix 40 IVPB daily Anemia likely related to chemo, chronic disease. Transfuse to Hgb >9 Ambulatory instability possibly secondary to cerebelar met. Dr Lord consulted. Plan for EGD AM to ensure no UGIB.
[2016-12-15] MEDS ORDERED: PANTOPRAZOLE SODIUM 40 MG in SODIUM CHLORIDE 100 ML IVPB SCH (20:30)
--- NOTE | 2016-12-15 20:59 | PN ---
Progress Note (short form) - Note Progress Note: Consult dictated 51 year old with adenoca of lung , extensive RUL consolidation , and post obstructive pneumonitis. receiving RT and s/p chemotheRapy with Alimta and carboplatinum. Patient presents with black stool, ?? bismuth related vs. GI bleed, Anemia, Also with new right cerebellar met. SUGGEST: STOOL GUAICS, MRI OF BRAIN WITH SHIVA WILL NOTIFY RT IN a.m.
[2016-12-15 21:00] LABS: MCH 21.5 pg (25.7-33.7); MCHC 32.6 g/dl (32.0-35.9); MEAN CELL VOLUME 65.8 fl (80-96); MEAN PLT VOLUME 8.6 fl (7.5-11.1); PLATELET COUNT 160 K/MM3 (134-434); RDW 24.7 % (11.9-15.9); WHITE BLOOD COUNT 10.9 K/mm3 (4.0-10.0)
--- NOTE | 2016-12-15 21:38 | CONS ---
DATE OF CONSULTATION: DATE OF DICTATION: 12/15/2016 This patient is well known to me. Patient has a history of metastatic adenocarcinoma of the right upper lobe. He has extensive right upper lobe consolidation with a post-obstructive pneumonia. He has been treated initially with chemotherapy, receiving carboplatin and Alimta. He is receiving radiation therapy. The patient, in addition, has hypothyroidism with an elevation of TSH. The patient has been anorectic, with inability to eat. He has had some reflux. He has been having Pepto-Bismol and had black stool. He was seen by GI and the feeling is that the patient likely is not having GI bleeding but rather is having black stool from the extensive Pepto-Bismol intake. In any event, the patient has been unsteady of late. Unfortunately he was found to have a left cerebellar lesion, which is a new finding. The patient will need irradiation therapy consultation. The patient also has had a recent history of shingles, treated with Valtrex. CURRENT PHYSICAL EXAMINATION: Vital Signs: BP 120/57, pulse 80, respiratory rate 20, afebrile. HEENT: SILVINO, EOM intact. Oropharynx unremarkable. Lungs: Decreased breath sounds, right lung. Cardiac: Regular rhythm. Abdomen: Soft. Extremities: No significant edema. Extensive clubbing. Laboratory revealed WBC 7.8, hematocrit 24.8, platelets 127,000, with 78 polys, INR 1.19. Chemistries: Sodium 139, K 4.0, chloride 99, CO2 33, OT 10, PT 9, alkaline phosphatase 104, creatinine 0.7. Chest x-ray seen and reviewed: Extensive right upper lobe infiltration. CT with a left cerebellar edema and a 12 mm x 18 mm x 9.7 mm low-attenuation lesion in the superior aspect of the right cerebellum. IMPRESSION: 1. Metastatic adenocarcinoma of the lung with postobstructive pneumonia, right cerebellar lesion. 2. Black stools, questionable bismuth related, questionable gastrointestinal bleeding. 3. Anemia. 4. Cerebellar metastasis. SUGGEST: 1. IV contrast MRI (gadolinium). 2. RT consult. PREET TAVARES M.D. YOKO/[id number]
[2016-12-15] MEDS: DEXAMETHASONE SOD PHOSPHATE 4 MG/1 ML VIAL IVPB SCH (21:49)
[2016-12-15] MEDS: DEXTROSE 5%-0.45% SALINE 1,000 ML IV SCH (23:27)
[2016-12-15] MEDS: PANTOPRAZOLE SODIUM 40 MG/100 ML PRE-DOCKED IVPB SCH (23:28)
[2016-12-16] MEDS: ALPRAZolam 0.25 MG TABLET PO PRN ×2 (01:42→09:28)
[2016-12-16] MEDS: oxyCODONE HCL 5 MG TABLET PO PRN ×3 (03:44→20:01)
[2016-12-16] MEDS: DEXAMETHASONE SOD PHOSPHATE 4 MG/1 ML VIAL IVPB SCH ×4 (03:44→20:01)
[2016-12-16] MEDS: LEVOTHYROXINE NA 100 MCG TABLET (FP) PO SCH (06:35)
[2016-12-16 08:09] LABS: ALBUMIN 2.3 g/dl (3.4-5.0); ANION GAP 9 (8-16); BILIRUBIN,TOTAL 0.4 mg/dL (0.2-1.0); CALCIUM 8.2 mg/dL (8.5-10.1); CO2 27 mmol/L (21-32); CREATININE 0.8 mg/dL (0.7-1.3); GLUCOSE,RANDOM 119 mg/dL (74-106); MAGNESIUM 1.5 mg/dL (1.8-2.4); SGOT/AST 13 U/L (15-37); SGPT/ALT 13 U/L (12-78); TOT PROT 5.7 g/dl (6.4-8.2)
[2016-12-16 08:18] LABS: ALK PHOS 119 U/L (45-117)
[2016-12-16] MEDS ORDERED: ACETAMINOPHEN 325 MG TABLET (FP) ONE (09:24)
[2016-12-16] MEDS: FOLIC ACID 1 MG TABLET (FP) PO SCH (09:28)
[2016-12-16] MEDS: MAGNESIUM OXIDE 400 MG TABLET (FP) PO SCH (09:28)
[2016-12-16] MEDS: PANTOPRAZOLE SODIUM 40 MG/100 ML PRE-DOCKED IVPB SCH (09:29)
--- NOTE | 2016-12-16 14:48 | PN ---
Progress Note, Physician History of Present Illness: patient stable new findings of the mets noted gi thought process noted patient has no complaints now no stools as of yet today - Current Medication List Current Medications: Active Medications Alprazolam (Xanax -) 0.5 mg PO BID PRN PRN Reason: ANXIETY Last Admin: 12/16/16 09:28 Dose: 0.5 mg Dexamethasone Sodium Phosphate (Decadron Injection -) 4 mg IVPB Q6H-IV [facility] Last Admin: 12/16/16 09:28 Dose: 4 mg Folic Acid (Folic Acid -) 1 mg PO DAILY [facility] Last Admin: 12/16/16 09:28 Dose: 1 mg Dextrose/Sodium Chloride (D5-1/2ns -) 1,000 mls @ 75 mls/hr IV ASDIR [facility] Last Admin: 12/15/16 23:27 Dose: Not Given Levothyroxine Sodium (Synthroid -) 100 mcg PO DAILY@0700 [facility] Last Admin: 12/16/16 06:35 Dose: 100 mcg Magnesium Oxide (Mag-Ox -) 400 mg PO DAILY [facility] Last Admin: 12/16/16 09:28 Dose: 400 mg Oxycodone HCl (Roxicodone -) 10 mg PO Q6H PRN PRN Reason: PAIN Last Admin: 12/16/16 09:27 Dose: 10 mg Pantoprazole Sodium (Protonix 40mg Ivpb (Pre-Docked)) 40 mg IVPB DAILY [facility] Last Admin: 12/16/16 09:29 Dose: 40 mg - Objective Vital Signs: Vital Signs Temperature 97.3 F L 12/16/16 14:22 Pulse Rate 78 12/16/16 14:22 Respiratory Rate 20 12/16/16 14:22 Blood Pressure 119/80 12/16/16 14:22 O2 Sat by Pulse Oximetry (%) 98 12/15/16 21:00 Constitutional: Yes: No Distress, Calm Cardiovascular: Yes: Regular Rate and Rhythm Respiratory: Yes: Regular, CTA Bilaterally Gastrointestinal: Yes: Normal Bowel Sounds, Soft Musculoskeletal: Yes: WNL Extremities: Yes: WNL Neurological: Yes: Alert, Oriented Psychiatric: Yes: Alert Labs: CBC, BMP 12/15/16 19:30 12/16/16 06:00 INR, PTT INR 1.19 (0.82-1.09) H 02/20/17 11:26 Assessment/Plan ca of the lung dizziness santa hypotension plan continue current mgmt onco and gi on case work aide for santa uge by gi rest ct current mgmt
--- NOTE | 2016-12-16 16:00 | PN ---
Progress Note (short form) - Note Progress Note: Patient seen and examined. Consult dictated. MRI of brain requested. Chest RT on hold.
--- NOTE | 2016-12-16 17:15 | CONS ---
INITIAL CONSULTATION DATE OF CONSULTATION: 12/14/2016, 4:18 P.M. DIAGNOSIS: Brain metastasis from a lung cancer. CHIEF COMPLAINT: Patient was sent to the ER a day or two ago for dizziness. HISTORY OF PRESENT ILLNESS: He is a 50-year-old male who was undergoing radiotherapy and chemotherapy combined modality treatment for a locally-advanced lung cancer. He had a few-day history of dizziness and was sent to the ER for evaluation. He was admitted for additional workup. A CAT scan of the head identified a right cerebellar lesion and edema in the left cerebellum An MRI of the brain is pending. PHYSICAL EXAM: Vital signs: His vital signs include a blood pressure of 119/80, respiratory rate of 20, pulse of 78. His temperature is 97.3 degrees Fahrenheit. Head, ears, eyes, nose and throat: Face is symmetric. Tongue is midline. No adenopathy in the neck, axillae or groin: Heart: Normal heart sounds present. Lungs: Clear. Abdomen: Soft. Neurologic: No focal, sensory or motor deficits. IMPRESSION/PLAN: I will follow up on the MRI when completed and decide on the best approach. AFUA BEE M.D. NAYAN/[id number] MTDD
[2016-12-16] MEDS: DEXTROSE 5%-0.45% SALINE 1,000 ML IV SCH (18:17)
--- NOTE | 2016-12-16 18:34 | PN ---
Progress Note (short form) - Note Progress Note: Patient seen and examined c/o generalized body aches, dizziness Last Vital Signs Temp Pulse Resp BP Pulse Ox 97.3 F L 78 20 119/80 98 12/16/16 14:22 12/16/16 14:22 12/16/16 14:22 12/16/16 14:22 12/16/16 10:00 HEENT: SILVINO, EOM Intact Oropharynx: No thrush Cor: RSR, No murmurs, No gallops Lungs: Clear to P&A Abd: Soft, Normal bowel sounds, No organomegaly Ext:No significant edema Abnormal Lab Results 12/14/16 12/15/16 12/16/16 11:26 19:30 06:00 WBC 10.9 H D Hgb 9.1 L D Hct 27.8 L MCV 65.8 L RDW 24.7 H D Random Glucose 119 H D Calcium 8.2 L Magnesium 1.5 L D AST 13 L D Alkaline Phosphatase 119 H Total Protein 5.7 L Albumin 2.3 L TSH 10.10 H D Crossmatch See Detail Current Medications Alprazolam (Xanax -) 0.5 mg PO BID PRN PRN Reason: ANXIETY Last Admin: 12/16/16 09:28 Dose: 0.5 mg Dexamethasone Sodium Phosphate (Decadron Injection -) 4 mg IVPB Q6H-IV [facility] Last Admin: 12/16/16 15:00 Dose: 4 mg Folic Acid (Folic Acid -) 1 mg PO DAILY [facility] Last Admin: 12/16/16 09:28 Dose: 1 mg Dextrose/Sodium Chloride (D5-1/2ns -) 1,000 mls @ 75 mls/hr IV ASDIR [facility] Last Admin: 12/16/16 18:17 Dose: 75 mls/hr Levothyroxine Sodium (Synthroid -) 100 mcg PO DAILY@0700 [facility] Last Admin: 12/16/16 06:35 Dose: 100 mcg Magnesium Oxide (Mag-Ox -) 400 mg PO DAILY [facility] Last Admin: 12/16/16 09:28 Dose: 400 mg Oxycodone HCl (Roxicodone -) 10 mg PO Q6H PRN PRN Reason: PAIN Last Admin: 12/16/16 09:27 Dose: 10 mg Pantoprazole Sodium (Protonix 40mg Ivpb (Pre-Docked)) 40 mg IVPB DAILY [facility] Last Admin: 12/16/16 09:29 Dose: 40 mg A/P 51 y/o patient with metastatic lung cancer, dizziness, Rt. cerebellar lesion dizziness--awaiting MRI Increase oxycodone to 10mg Q 4h prn
[2016-12-16] MEDS ORDERED: LEVOTHYROXINE NA 100 MCG TABLET (FP) PO SCH (21:35)
--- NOTE | 2016-12-16 21:35 | PN ---
Progress Note, Physician - Current Medication List Current Medications: Active Medications Alprazolam (Xanax -) 0.5 mg PO BID PRN PRN Reason: ANXIETY Last Admin: 12/16/16 09:28 Dose: 0.5 mg Dexamethasone Sodium Phosphate (Decadron Injection -) 4 mg IVPB Q6H-IV [facility] Last Admin: 12/16/16 20:01 Dose: 4 mg Folic Acid (Folic Acid -) 1 mg PO DAILY [facility] Last Admin: 12/16/16 09:28 Dose: 1 mg Dextrose/Sodium Chloride (D5-1/2ns -) 1,000 mls @ 75 mls/hr IV ASDIR [facility] Last Admin: 12/16/16 18:17 Dose: 75 mls/hr Levothyroxine Sodium (Synthroid -) 100 mcg PO DAILY@0700 [facility] Last Admin: 12/16/16 06:35 Dose: 100 mcg Magnesium Oxide (Mag-Ox -) 400 mg PO DAILY [facility] Last Admin: 12/16/16 09:28 Dose: 400 mg Oxycodone HCl (Roxicodone -) 10 mg PO Q4H PRN PRN Reason: PAIN Last Admin: 12/16/16 20:01 Dose: 10 mg Pantoprazole Sodium (Protonix 40mg Ivpb (Pre-Docked)) 40 mg IVPB DAILY [facility] Last Admin: 12/16/16 09:29 Dose: 40 mg - Objective Vital Signs: Vital Signs Temperature 98.2 F 12/16/16 20:09 Pulse Rate 76 12/16/16 20:09 Respiratory Rate 20 12/16/16 20:11 Blood Pressure 130/85 12/16/16 20:09 O2 Sat by Pulse Oximetry (%) 98 12/16/16 20:11 Labs: CBC, BMP 12/15/16 19:30 12/16/16 06:00 INR, PTT INR 1.19 (0.82-1.09) H 12/14/16 11:26 Problem List - Problems (1) GI bleed Code(s): K92.2 - GASTROINTESTINAL HEMORRHAGE, UNSPECIFIED (2) Primary lung adenocarcinoma Code(s): C34.90 - MALIGNANT NEOPLASM OF UNSP PART OF UNSP BRONCHUS OR LUNG Qualifiers: Laterality: right Qualified Code(s): C34.91 - Malignant neoplasm of unspecified part of right bronchus or lung (3) Orthostatic hypotension Code(s): I95.1 - ORTHOSTATIC HYPOTENSION (4) Pancytopenia Code(s): D61.818 - OTHER PANCYTOPENIA (5) Pericardial effusion Code(s): I31.3 - PERICARDIAL EFFUSION (NONINFLAMMATORY) (6) COPD (chronic obstructive pulmonary disease) Code(s): J44.9 - CHRONIC OBSTRUCTIVE PULMONARY DISEASE, UNSPECIFIED Qualifiers : COPD type: unspecified COPD Qualified Code(s): J44.9 - Chronic obstructive pulmonary disease, unspecified (7) Hypothyroidism Code(s): E03.9 - HYPOTHYROIDISM, UNSPECIFIED Qualifiers: Hypothyroidism type: unspecified Qualified Code(s): E03.9 - Hypothyroidism, unspecified
[2016-12-17] MEDS: oxyCODONE HCL 5 MG TABLET PO PRN ×4 (00:07→21:17)
[2016-12-17] MEDS: DEXAMETHASONE SOD PHOSPHATE 4 MG/1 ML VIAL IVPB SCH ×3 (02:42→15:46)
[2016-12-17] MEDS ORDERED: LEVOTHYROXINE NA 25 MCG TABLET (FP) ONE (05:04)
[2016-12-17] MEDS ORDERED: LEVOTHYROXINE NA 100 MCG TABLET (FP) ONE (05:04)
[2016-12-17] MEDS: LEVOTHYROXINE 100 MCG, LEVOTHYROXINE 25 MCG PO SCH (06:13)
[2016-12-17 07:38] LABS: BASOPHIL 0.2 % (0-2.0); MCH 22.2 pg (25.7-33.7); MCHC 32.9 g/dl (32.0-35.9); MEAN CELL VOLUME 67.6 fl (80-96); MEAN PLT VOLUME 8.5 fl (7.5-11.1); NEUTROPHILS 92.5 % (42.8-82.8); PLATELET COUNT 229 K/MM3 (134-434); RDW 27.8 % (11.9-15.9); WHITE BLOOD COUNT 14.6 K/mm3 (4.0-10.0)
[2016-12-17 07:49] LABS: ALBUMIN 2.4 g/dl (3.4-5.0); ANION GAP 8 (8-16); CALCIUM 8.2 mg/dL (8.5-10.1); CO2 29 mmol/L (21-32); GLUCOSE,RANDOM 99 mg/dL (74-106)
[2016-12-17 07:53] LABS: ALK PHOS 128 U/L (45-117); BILIRUBIN,TOTAL 0.2 mg/dL (0.2-1.0); CREATININE 0.7 mg/dL (0.7-1.3); SGOT/AST 21 U/L (15-37); SGPT/ALT 13 U/L (12-78); TOT PROT 5.9 g/dl (6.4-8.2)
[2016-12-17] MEDS ORDERED: LIDOCAINE HCL/PF 1% SDV 5ML VIAL ONE (08:36)
[2016-12-17] MEDS ORDERED: PROPOFOL 20 ML ONE (08:36)
--- NOTE | 2016-12-17 09:14 | PN ---
Progress Note (short form) - Note Progress Note: ADDENDUM: S/P EGD NO SOURCE OF BLEEDING NOTED. BLACK STOOL SECONDARY TO PEPTO BISMOL INGESTION RESUME DIET WILL FOLLOW PRN THANK YOU
[2016-12-17] MEDS: FOLIC ACID 1 MG TABLET (FP) PO SCH (10:00)
[2016-12-17] MEDS: MAGNESIUM OXIDE 400 MG TABLET (FP) PO SCH (10:00)
--- NOTE | 2016-12-17 10:32 | PN ---
Progress Note (short form) - Note Progress Note: Radiation oncology I reviewed mri of brain report and discussed case with Dr. Lord. Mr. uGerra has a solitary brain metastasis and history of lung cancer RT to chest on hold. I requested a consult from Dr. Oh. as to role of neurosurgery.
[2016-12-17] MEDS: PANTOPRAZOLE SODIUM 40 MG/100 ML PRE-DOCKED IVPB SCH (11:53)
[2016-12-17] MEDS: DEXTROSE 5%-0.45% SALINE 1,000 ML IV SCH (12:51)
[2016-12-17 12:54] LABS: INR 1.1 (0.82-1.09); PROTHROMBIN TIME (PATIENT) 12.1 SEC (9.98-11.88)
[2016-12-17 12:57] LABS: ACTIVATED PTT 28.6 SECONDS (26.9-34.4)
--- NOTE | 2016-12-17 13:19 | PN ---
Progress Note (short form) - Note Progress Note: NEUROSURGERY CONSULT DICTATED 51 yo RH male w/ poorly differentiated adenocarcinoma of RUL initially diagnosed , hypothyroidism, pericardial effusion, and pancytopenia. Pt last received chemo 3 weeks ago. On 12/14/16 pt went for his RT with curative intent (T2N3) but complained of lightheadedness and dizziness and he was sent to the ER. Pt states that this has been happening for 3-4 days. Pt denies any H /A, N/V and no abdominal pain. He was found to be orthostatic and admitted. PE: AF,VSS General- unremarkable CN- intact; Motor- 5/5 without drift; Sensation- intact LT; DTR- hyporeflexia; Cerebellar- intact FTN B Head CT- L cerebellar hypodensity Brain MRI- R cerebellar white matter 1.5 cm zone of acute/subacute ischemia; L cerebellar 1 cm enhancing lesion with vasogenic edema Acute R cerebellar ischemic stroke and L cerebellar enhancing lesion with edema c/w met Craniotomy/resection vs stereotactic radiosurgery vs whole brain/regional RT discussed With acute stroke open surgical intervention is not recommended Either SRS or WBRT acceptable; pros and cons discussed Pt to decide on his treatment with Dr Mosquera and Dr Golden All questions answered
--- NOTE | 2016-12-17 13:41 | PN ---
Progress Note, Physician History of Present Illness: stable no complaints - Current Medication List Current Medications: Active Medications Alprazolam (Xanax -) 0.5 mg PO BID PRN PRN Reason: ANXIETY Last Admin: 12/16/16 09:28 Dose: 0.5 mg Dexamethasone Sodium Phosphate (Decadron Injection -) 4 mg IVPB Q6H-IV ON LICENSE OF [facility] Last Admin: 12/17/16 10:00 Dose: 4 mg Folic Acid (Folic Acid -) 1 mg PO DAILY ON LICENSE OF [facility] Last Admin: 12/17/16 10:00 Dose: 1 mg Dextrose/Sodium Chloride (D5-1/2ns -) 1,000 mls @ 75 mls/hr IV ASDIR ON LICENSE OF [facility] Last Admin: 12/17/16 12:51 Dose: 75 mls/hr Levothyroxine Sodium 100 mcg/ (Levothyroxine Sodium 25 mcg) 125 mcg PO DAILY@ 0700 ON LICENSE OF [facility] Last Admin: 12/17/16 06:13 Dose: 125 mcg Magnesium Oxide (Mag-Ox -) 400 mg PO DAILY ON LICENSE OF [facility] Last Admin: 12/17/16 10:00 Dose: 400 mg Oxycodone HCl (Roxicodone -) 10 mg PO Q4H PRN PRN Reason: PAIN Last Admin: 12/17/16 06:13 Dose: 10 mg Pantoprazole Sodium (Protonix 40mg Ivpb (Pre-Docked)) 40 mg IVPB DAILY ON LICENSE OF [facility] Last Admin: 12/17/16 11:53 Dose: 40 mg - Objective Vital Signs: Vital Signs Temperature 97.7 F 12/17/16 10:00 Pulse Rate 61 12/17/16 10:00 Respiratory Rate 18 12/17/16 10:00 Blood Pressure 139/91 12/17/16 10:00 O2 Sat by Pulse Oximetry (%) 100 12/17/16 10:00 Constitutional: Yes: No Distress, Calm Neck: Yes: Supple Cardiovascular: Yes: Regular Rate and Rhythm Respiratory: Yes: Regular, CTA Bilaterally Gastrointestinal: Yes: Normal Bowel Sounds Musculoskeletal: Yes: WNL Extremities: Yes: WNL Neurological: Yes: Alert, Oriented Psychiatric: Yes: Alert Labs: CBC, BMP 12/17/16 06:00 12/17/16 06:00 INR, PTT INR 1.10 (0.82-1.09) 12/17/16 11:40 Assessment/Plan ca of the lung dizziness santa hypotension plan continue current mgmt onco and gi on block and case maker for santa uge by gi rest ct current mgmt
--- NOTE | 2016-12-17 15:49 | PN ---
Progress Note (short form) - Note Progress Note: Radiation oncology: I reviewed Dr. Oh's note and spoke with Mr. Guerra. I discussed radiosurgery and whole brain radiation. I would recommend radiosurgery. On discharge he could go up to [facility] to meet with Dr. Jacobo who will review his case and if appropriate arrange for gamma knife.
--- NOTE | 2016-12-17 18:18 | PN ---
Progress Note (short form) - Note Progress Note: Patient seen and examined Last Vital Signs Temp Pulse Resp BP Pulse Ox 97.4 F L 77 20 132/89 100 12/17/16 15:04 12/17/16 15:04 12/17/16 15:04 12/17/16 15:04 12/17/16 10:00 HEENT: SILVINO, EOM Intact Oropharynx: No thrush Cor: RSR, No murmurs, No gallops Lungs:decreased rt. lung Abd: Soft, Normal bowel sounds, No organomegaly Ext:No significant edema Abnormal Lab Results 12/17/16 12/17/16 06:00 06:00 WBC 14.6 H D Hgb 10.4 L D Hct 31.6 L MCV 67.6 L RDW 27.8 H Neutrophils % 92.5 H Lymphocytes % 2.8 L D Calcium 8.2 L Alkaline Phosphatase 128 H Total Protein 5.9 L Albumin 2.4 L Current Medications Alprazolam (Xanax -) 0.5 mg PO BID PRN PRN Reason: ANXIETY Last Admin: 12/16/16 09:28 Dose: 0.5 mg Dexamethasone (Decadron -) 4 mg PO Q6HPO [facility] Folic Acid (Folic Acid -) 1 mg PO DAILY [facility] Last Admin: 12/17/16 10:00 Dose: 1 mg Levothyroxine Sodium 100 mcg/ (Levothyroxine Sodium 25 mcg) 125 mcg PO DAILY@ 0700 [facility] Last Admin: 12/17/16 06:13 Dose: 125 mcg Magnesium Oxide (Mag-Ox -) 400 mg PO DAILY [facility] Last Admin: 12/17/16 10:00 Dose: 400 mg Oxycodone HCl (Roxicodone -) 10 mg PO Q4H PRN PRN Reason: PAIN Last Admin: 12/17/16 15:57 Dose: 10 mg Pantoprazole Sodium (Protonix 40mg Ivpb (Pre-Docked)) 40 mg IVPB DAILY [facility] Last Admin: 12/17/16 11:53 Dose: 40 mg A/P 51 y/o patient with metastatic lung cancer, dizziness, Rt. cerebellar lesion dizziness--MRI Lt. cerebllar lesion with edema and cerebellar infarct Appreciate neurosurgery/rad-onc input change decadron to PO/protonix d/c iv fluids Increase oxycodone to 10mg Q 4h prn s/p endoscopy--normal d/c planning in am
[2016-12-17] MEDS: DEXAMETHASONE 4 MG TABLET (FP) PO SCH (21:15)
[2016-12-17] MEDS: ALPRAZolam 0.25 MG TABLET PO SCH (23:07)
--- NOTE | 2016-12-17 23:33 | PN ---
Progress Note, Physician - Current Medication List Current Medications: Active Medications Alprazolam (Xanax -) 0.5 mg PO BID PRN PRN Reason: ANXIETY Last Admin: 12/16/16 09:28 Dose: 0.5 mg Alprazolam (Xanax -) 0.5 mg PO BID [facility] Last Admin: 12/17/16 23:07 Dose: 0.5 mg Dexamethasone (Decadron -) 4 mg PO Q6HPO [facility] Last Admin: 12/17/16 21:15 Dose: 4 mg Folic Acid (Folic Acid -) 1 mg PO DAILY [facility] Last Admin: 12/17/16 10:00 Dose: 1 mg Levothyroxine Sodium 100 mcg/ (Levothyroxine Sodium 25 mcg) 125 mcg PO DAILY@ 0700 [facility] Last Admin: 12/17/16 06:13 Dose: 125 mcg Magnesium Oxide (Mag-Ox -) 400 mg PO DAILY [facility] Last Admin: 12/17/16 10:00 Dose: 400 mg Oxycodone HCl (Roxicodone -) 10 mg PO Q4H PRN PRN Reason: PAIN Last Admin: 12/17/16 21:17 Dose: 10 mg Pantoprazole Sodium (Protonix 40mg Ivpb (Pre-Docked)) 40 mg IVPB DAILY [facility] Last Admin: 12/17/16 11:53 Dose: 40 mg - Objective Vital Signs: Vital Signs Temperature 97.5 F L 12/17/16 18:00 Pulse Rate 74 12/17/16 18:00 Respiratory Rate 24 12/17/16 18:00 Blood Pressure 131/83 12/17/16 18:00 O2 Sat by Pulse Oximetry (%) 100 12/17/16 10:00 Labs: CBC, BMP 12/17/16 06:00 12/17/16 06:00 INR, PTT INR 1.10 (0.82-1.09) 12/17/16 11:40 Problem List - Problems (1) GI bleed Code(s): K92.2 - GASTROINTESTINAL HEMORRHAGE, UNSPECIFIED (2) Primary lung adenocarcinoma Code(s): C34.90 - MALIGNANT NEOPLASM OF UNSP PART OF UNSP BRONCHUS OR LUNG Qualifiers: Laterality: right Qualified Code(s): C34.91 - Malignant neoplasm of unspecified part of right bronchus or lung (3) Orthostatic hypotension Code(s): I95.1 - ORTHOSTATIC HYPOTENSION (4) Pancytopenia Code(s): D61.818 - OTHER PANCYTOPENIA (5) Pericardial effusion Code(s): I31.3 - PERICARDIAL EFFUSION (NONINFLAMMATORY) (6) COPD (chronic obstructive pulmonary disease) Code(s): J44.9 - CHRONIC OBSTRUCTIVE PULMONARY DISEASE, UNSPECIFIED Qualifiers : COPD type: unspecified COPD Qualified Code(s): J44.9 - Chronic obstructive pulmonary disease, unspecified (7) Hypothyroidism Code(s): E03.9 - HYPOTHYROIDISM, UNSPECIFIED Qualifiers: Hypothyroidism type: unspecified Qualified Code(s): E03.9 - Hypothyroidism, unspecified
[2016-12-18] MEDS: DEXAMETHASONE 4 MG TABLET (FP) PO SCH ×3 (01:08→10:28)
[2016-12-18] MEDS ORDERED: LEVOTHYROXINE NA 25 MCG TABLET (FP) ONE (05:12)
[2016-12-18] MEDS ORDERED: LEVOTHYROXINE NA 100 MCG TABLET (FP) ONE (05:12)
[2016-12-18] MEDS: oxyCODONE HCL 5 MG TABLET PO PRN (06:12)
[2016-12-18] MEDS: LEVOTHYROXINE 100 MCG, LEVOTHYROXINE 25 MCG PO SCH (06:12)
--- NOTE | 2016-12-18 08:56 | PN ---
Progress Note (short form) - Note Progress Note: NEUROSURGERY No new complaint Doing well PE: AF,VSS General- unremarkable CN- intact; Motor- 5/5 without drift; Sensation- intact LT; DTR- hyporeflexia; Cerebellar- intact FTN B Head CT- L cerebellar hypodensity Brain MRI- R cerebellar white matter 1.5 cm zone of acute/subacute ischemia; L cerebellar 1 cm enhancing lesion with vasogenic edema Acute R cerebellar ischemic stroke and L cerebellar enhancing lesion with edema c/w met Craniotomy/resection vs stereotactic radiosurgery vs whole brain/regional RT discussed yesterday - pros and cons discussed With acute R cerebellar stroke open surgical intervention is not recommended; Pt does not want surgery anyway Either SRS or WBRT acceptable; pros and cons discussed Pt to decide on his treatment with Dr Mosquera and Dr Golden All questions answered
[2016-12-18] MEDS: FOLIC ACID 1 MG TABLET (FP) PO SCH (10:23)
[2016-12-18] MEDS: ALPRAZolam 0.25 MG TABLET PO SCH (10:23)
[2016-12-18] MEDS: MAGNESIUM OXIDE 400 MG TABLET (FP) PO SCH (10:23)
[2016-12-18] MEDS: PANTOPRAZOLE SODIUM 40 MG/100 ML PRE-DOCKED IVPB SCH (10:23)
--- NOTE | 2016-12-18 11:36 | CONS ---
DATE OF CONSULTATION: 12/17/2016 REQUESTING PHYSICIANS: Bronson Lundberg MD, and Chantel You MD EXCHANGE SPECIALIST: Dennys Oh MD, Neurosurgery CHIEF COMPLAINT: Brain metastasis. HISTORY OF PRESENT ILLNESS: The patient is a 51-year-old right-handed male with history of right upper lobe adenocarcinoma of the lung initially diagnosed in July 2016, status post chemotherapy and radiation, who complains of a 3-4 day history of increasing dizziness. He denies any headache. He did have some nausea, but he attributed that to the medication side effects. He last received chemotherapy regimen about 3 weeks earlier. He is up for the next cycle. Presently, he has no diplopia, ataxia or weakness/numbness. He does not have any seizures. There are no fevers or chills. He has reportedly lost some weight, but has gained about 10 pounds back in the last week. PAST MEDICAL HISTORY: Significant for 1. COPD. 2. Adenocarcinoma of the lungs. 3. Anemia. 4. Hypothyroidism. 5. Diabetes. 6. Pericardial effusion . CURRENT MEDICATIONS: Include 1. Dexamethasone. 2. Xanax. 3. Roxicodone. 4. Protonix. 5. Levothyroxine. 6. Folate. 7. Magnesium oxide. ALLERGIES: There are no known drug allergies. FAMILY HISTORY: Noncontributory. SOCIAL HISTORY: He is a 2-mvdk-t-day smoker for the past 30 years until he quit last July after his lung cancer diagnosis. He lives at home. He does not work. REVIEW OF SYSTEMS: Otherwise negative for other major cardiovascular, pulmonary, gastrointestinal, genitourinary, neurologic or psychological problem except for the above. PHYSICAL EXAMINATION: Vital signs: Temperature is 97.7. Blood pressure is 139/91 with a pulse rate of 61. O2 saturation is 100% on room air. General: He is in good spirits. HEENT: Examination shows him to be normocephalic, atraumatic, anicteric. Neck: Supple with no lymphadenopathy. Coronary: Examination demonstrates a regular rhythm. Lungs: Clear bilaterally except for slight decreased breath sounds at the bases. Abdomen: Benign. Extremities: Show no signs of DVT. Neurologic: He is awake, alert and oriented x 4. Higher cortical function appears to be intact. Cranial nerve examination is intact II through XII. Motor examination shows 5/5 strength without drift. Sensory examination is intact to light touch. Deep tendon reflexes are 1+ throughout. There is no pathological long track sign. Cerebellar examination demonstrates a roughly intact [id number] examination. He has a mild tremor with the left hand. Gait was not tested for safety reasons. LABORATORY EXAMINATION: WBC count is 14,600. Hemoglobin 10.4 and platelet count 229,000. INR is 1.1 and PTT is 28.6. Serum sodium is 130 and potassium is 4.1. BUN and creatinine are 16 and 0.7, respectively. Albumin is 2.4. IMAGING: CT scan of the brain performed on the 14 of December demonstrated a left cerebellar hypodensity as well as a focal, better demarcated hypodensity in the right cerebellum in the superior portion. MRI of the brain with and without gadolinium demonstrated acute/subacute ischemia of the right cerebellum, as well as solitary 1-cm uniformly-enhancing lesion in the left cerebellum with surrounding vasogenic edema. There is no mass effect on the 4th ventricle, and there is no hydrocephalus. There is no other intracranial lesion noted. IMPRESSION: 1. Stage IV adenocarcinoma of the right upper lobe. 2. Acute/subacute right cerebellar ischemia. RECOMMENDATIONS: The patient presents with stage IV adenocarcinoma of the right upper lobe. Previously, he had reported positive mediastinal nodes. The gentleman has been undergoing focal radiation treatment to the lung as well as chemotherapy. He is found to have a left cerebellar enhancing lesion, consistent with metastasis. There is associated vasogenic edema. There is also acute/subacute stroke of the right cerebellum. 1. Treatment options for the left cerebellar metastasis would include craniotomy for tumor debulking, stereotactic radiosurgery, and whole brain radiation. The pros and cons of stereotactic radiosurgery versus whole brain radiation were discussed. Each radiation approach has its pros and cons, and the patient appeared to understand them. He will discuss his choice of treatment with Dr. Lundberg and Dr. You. 2. Surgery is not recommended because of recent stroke. All questions were answered. DENNYS OH M.D. SRIDHAR/[id number] cc: MD Avelino Gomez MD
--- NOTE | 2016-12-18 12:05 | CONSULT ---
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 PMH sig for COPD, smoking, asbestos exposure, hypothyroidism and chronic encephalopathy. Diagnosed with adenocarcinoma of the Right lung Jul, 2016, and currently receiving RT. Admitted after 4 days of Headache, dizziness and unsteady gait with falling to the Right side. CT of head (reviewed): Right cerebellar infarct, well-defined. Left cerebellar edema with mild mass effect on 4th ventrical (to the right). MRI of brain (reviewed): Right cereebellar infarct, age indeterminant, and Left cerebellar metastasis with edema. Started on decdadron (4 mg IV q 6 hrs) with prompt improvement in headache, dizziness and imbalance. Claims he "feels fine and back t normal." GABINO: Thin. No bruits. No evidence of external head trauma. NEURO: Awake, alert. Mild-moderate static encephalopathy. CN II-XII: Normal without nystagmus. Motor: No drift or tremor. Normal strength, bulk, tone and reflexes. Toes downgoing. Coord: Mild, B/L FTN dystaxia. Sensory: Normal. Romberg Neg. Gait: sl wide-based but stable. Difficulty with tandem. IMP: Old Right cerebellar infarct. New Left cerebellar Metastasis. Prompt response to decadron suggests that the met, rather than the CVA, was the cause of the recent complaints. SUGGEST: Continue decadron 4 mg PO q 6 hrs as out patient and gradually taper. Whole brain and/or fractionated RT to the Left cerebellar lesion. Neuro f/u as out patient. Thank you very much, David Husain MD
--- NOTE | 2016-12-18 13:15 | PATH ---
Surgical Pathology Report Patient Name: MAHOGANY RAMSAY Med. Rec. #: [id number] /Age/Gender: 1965 (Age: 51) / M Account: [id number] Location: [facility] MED/SURG Taken: 12/17/2016 Received: 12/17/2016 Reported: 12/18/2016 Physicians: Uvaldo Gaffney M.D. Specimen(s) Received A: BX DUODENAL BULB B: BX 2ND PORTION DUODENUM C: BX ANTRUM Clinical History Melena, anemia Duodenitis, gastric erosion Final Diagnosis A. DUODENUAL BULB, BIOPSY: DUODENAL MUCOSA WITH FOCAL ACTIVE AND INFLAMMATION AND MAXINE'S GLANDS HYPERPLASIA. NO HISTOLOGIC EVIDENCE OF GLUTEN SENSITIVE ENTEROPATHY (CELIAC DISEASE). B. DUODENUM, SECOND PORTION, BIOPSY: DUODENAL MUCOSA WITH CHRONIC INFLAMMATION AND MAXINE'S GLANDS HYPERPLASIA. NO HISTOLOGIC EVIDENCE OF GLUTEN SENSITIVE ENTEROPATHY (CELIAC DISEASE). C. STOMACH, ANTRUM, BIOPSY: GASTRIC ANTRAL MUCOSA WITH MODERATE CHRONIC GASTRITIS AND REACTIVE GASTROPATHY WITH SURFACE EROSION. IMMUNOSTAIN FOR H. PYLORI IS NEGATIVE FOR ORGANISMS. Electronically Signed Sanchez De La Cruz M.D. Gross Description A. Received in formalin, labeled "biopsy duodenal bulb" are 2 hart, irregular portions of soft tissue measuring 0.3 and 0.5 cm in greatest dimension. The specimens are submitted in toto in one cassette. B. Received in formalin, labeled "biopsy second portion of duodenum" are 3 hart, irregular portions of soft tissue ranging from 0.3-0.5 cm in greatest dimension. The specimens are submitted in toto in one cassette. C. Received in formalin, labeled "biopsy antrum" are 3 hart, irregular portions of soft tissue ranging from 0.2-0.3 cm in greatest dimension. The specimens are submitted in toto in one cassette. /12/17/201612/17/2016
[2016-12-18 14:08] VITALS: BP 132/76; PULSE 77; TEMP 98
== END 2016-12-18 11:57 | disposition home or self-care (01) | DRG 41 ==
LOC: JER 10:58 → JERBED 13:36 → J7W 17:15
PROVIDERS: ADMIT Internal Medicine; ATTEND Internal Medicine
PROC: 30233N1 Transfusion of Nonautologous Red Blood Cells into Peripheral Vein, Percutaneous Approach (ICD-10-PCS; 2016-12-17)
PROC: 0DB98ZX Excision of Duodenum, Via Natural or Artificial Opening Endoscopic, Diagnostic (ICD-10-PCS; principal; 2016-12-17 08:45)
DX: C79.31 Secondary malignant neoplasm of brain (principal); J44.9 Chronic obstructive pulmonary disease, unspecified; E03.9 Hypothyroidism, unspecified; E86.0 Dehydration; C34.11 Malignant neoplasm of upper lobe, right bronchus or lung; F02.80 Dementia in other diseases classified elsewhere, unspecified severity, without behavioral disturbance, psychotic disturbance, mood disturbance, and anxiety; K92.2 Gastrointestinal hemorrhage, unspecified; D61.818 Other pancytopenia; D63.1 Anemia in chronic kidney disease; I31.3 Pericardial effusion (noninflammatory); G93.6 Cerebral edema; Z77.090 Contact with and (suspected) exposure to asbestos
CPT/HCPCS: 36415; 36430; 36511; 70450-TC; 70553-TC; 71010-TC; 80053; 82550; 83735; 84443; 84484; 85025; 85027; 85610; 85730; 86850; 86900; 86901; 86922; 88305-TC; 93005; 93010; 99284-25; A9576; P9038; P9058

== ENCOUNTER 2017-01-06 06:59 | Day surgery (SDC) | payer OTHER ==
[2017-01-06] MEDS ORDERED: CYANOCOBALAMIN (VITAMIN B-12) 1000 MCG/1 ML VIAL IM ONE (08:00)
[2017-01-06] MEDS ORDERED: DEXAMETHASONE INJECTION 10 MG in SODIUM CHLORIDE 50 ML IVPB ONE (08:00)
[2017-01-06] MEDS ORDERED: PALONOSETRON HCL 0.25 MG in SODIUM CHLORIDE 50 ML IVPB ONE (08:00)
[2017-01-06] MEDS ORDERED: PEMETREXED DISODIUM IVPB ONE ×2 (08:30→09:00)
[2017-01-06] MEDS ORDERED: SODIUM CHLORIDE IVPB ONE ×3 (08:30→09:40)
[2017-01-06] MEDS ORDERED: CARBOPLATIN IV ONE (08:40)
[2017-01-06] MEDS ORDERED: SODIUM CHLORIDE IV ONE (08:40)
[2017-01-06 08:55] LABS: MCH 22.7 pg (25.7-33.7); MCHC 32.6 g/dl (32.0-35.9); MEAN CELL VOLUME 69.8 fl (80-96); MEAN PLT VOLUME 8.2 fl (7.5-11.1); PLATELET COUNT 185 K/MM3 (134-434); RDW 30.6 % (11.9-15.9); WHITE BLOOD COUNT 18.7 K/mm3 (4.0-10.0)
[2017-01-06] MEDS ORDERED: POTASSIUM CHLORIDE IVPB ONE (09:40)
[2017-01-06] MEDS ORDERED: MAGNESIUM SULFATE IVPB ONE (09:40)
[2017-01-06 10:52] LABS: ALBUMIN 2.7 g/dl (3.4-5.0); BILIRUBIN,DIRECT 0.1 mg/dL (0.0-0.2); BILIRUBIN,TOTAL 0.4 mg/dL (0.2-1.0); CALCIUM 8.3 mg/dL (8.5-10.1); CREATININE 0.8 mg/dL (0.7-1.3); MAGNESIUM 1.7 mg/dL (1.8-2.4); TOT PROT 5.6 g/dl (6.4-8.2)
[2017-01-06 11:01] LABS: THYROID STIMULATING HORMONE 8.89 uIU/ml (0.358-3.74)
[2017-01-06 11:22] LABS: METAMYELOCYTE 4 % (0-2); PLATELET ESTIMATE ADEQUATE (NORMAL)
[2017-01-06 11:25] LABS: ANISOCYTOSIS 3+; HYPOCHROMIA 2+; POLYCHROMASIA OCC; TARGET CELLS 3+
[2017-01-06 11:26] LABS: MICROCYTOSIS 1+
[2017-01-06 12:45] VITALS: BP 132/84; PULSE 75; TEMP 97.5
== END 2017-01-06 13:44 | disposition home or self-care (01) ==
LOC: JONCCHEMO 06:59 → J7W 09:38 → JONCCHEMO 13:44
PROVIDERS: ATTEND Internal Medicine Hematology & Oncology
PROC: 3E04305 Introduction of Other Antineoplastic into Central Vein, Percutaneous Approach (ICD-10-PCS; principal; 2017-01-06)
PROC: 3E023GC Introduction of Other Therapeutic Substance into Muscle, Percutaneous Approach (ICD-10-PCS; 2017-01-06)
DX: Z51.11 Encounter for antineoplastic chemotherapy (principal); C34.91 Malignant neoplasm of unspecified part of right bronchus or lung; D70.2 Other drug-induced agranulocytosis; E53.8 Deficiency of other specified B group vitamins
CPT/HCPCS: 36415; 80048; 80076; 83735; 84439; 84443; 85025; 96413; 96415; 96417; J2469; J9305

== ENCOUNTER 2017-01-07 06:55 | Day surgery (SDC) | payer OTHER ==
[2017-01-07] MEDS ORDERED: PEGFILGRASTIM 6 MG/0.6 ML DISP.SYRIN SQ SCH (08:00)
[2017-01-07 09:48] VITALS: BP 126/92; PULSE 82; TEMP 97.1
== END 2017-01-07 10:10 | disposition home or self-care (01) ==
LOC: JONCCHEMO 06:55 → J7W 08:56 → JONCCHEMO 10:10
PROVIDERS: ATTEND Internal Medicine Hematology & Oncology
PROC: 3E013GC Introduction of Other Therapeutic Substance into Subcutaneous Tissue, Percutaneous Approach (ICD-10-PCS; principal; 2017-01-07)
DX: D70.2 Other drug-induced agranulocytosis (principal); C34.91 Malignant neoplasm of unspecified part of right bronchus or lung; E53.8 Deficiency of other specified B group vitamins
CPT/HCPCS: 96372; J2505; 96401

== ENCOUNTER 2017-02-17 07:02 | Day surgery (SDC) | payer OTHER ==
[2017-02-17] MEDS ORDERED: PALONOSETRON HCL 0.25 MG in SODIUM CHLORIDE 50 ML IVPB ONE (08:00)
[2017-02-17] MEDS ORDERED: DEXAMETHASONE INJECTION 10 MG in SODIUM CHLORIDE 50 ML IVPB ONE (08:00)
[2017-02-17] MEDS ORDERED: SODIUM CHLORIDE 250 ML IV ONE (08:00)
[2017-02-17] MEDS ORDERED: CYANOCOBALAMIN (VITAMIN B-12) 1000 MCG/1 ML VIAL IM ONE (08:00)
[2017-02-17] MEDS ORDERED: PEMETREXED DISODIUM IVPB ONE (08:30)
[2017-02-17] MEDS ORDERED: SODIUM CHLORIDE IVPB ONE ×2 (08:30→08:40)
[2017-02-17 08:35] LABS: MCH 24.3 pg (25.7-33.7); MCHC 31.1 g/dl (32.0-35.9); MEAN CELL VOLUME 78.2 fl (80-96); MEAN PLT VOLUME 8.6 fl (7.5-11.1); PLATELET COUNT 187 K/MM3 (134-434); RDW 31.7 % (11.9-15.9)
[2017-02-17] MEDS ORDERED: CARBOPLATIN IVPB ONE (08:40)
[2017-02-17] MEDS ORDERED: PORTA CATH FLUSH 10 ML IVPUSH ONE (13:04)
[2017-02-17 13:33] VITALS: BP 138/93; PULSE 98
[2017-02-17 13:44] VITALS: TEMP 98
[2017-02-17 14:39] LABS: METAMYELOCYTE 2 % (0-2); WHITE BLOOD COUNT 12.8 K/mm3 (4.0-10.0)
[2017-02-17 14:41] LABS: PLATELET ESTIMATE ADEQUATE (NORMAL); POLYCHROMASIA 2+
[2017-02-17 14:42] LABS: ANISOCYTOSIS 4+; HYPOCHROMIA 2+; MICROCYTOSIS 3+; TARGET CELLS 3+; TEAR DROP CELLS 2+
[2017-02-17 14:43] LABS: ACANTHOCYTES 1+
== END 2017-02-17 14:13 | disposition home or self-care (01) ==
LOC: JONCCHEMO 07:02 → J7W 09:19 → JONCCHEMO 14:13
PROVIDERS: ATTEND Internal Medicine Hematology & Oncology
PROC: 3E04305 Introduction of Other Antineoplastic into Central Vein, Percutaneous Approach (ICD-10-PCS; principal; 2017-02-17)
PROC: 3E043GC Introduction of Other Therapeutic Substance into Central Vein, Percutaneous Approach (ICD-10-PCS; 2017-02-17)
PROC: 3E0437Z Introduction of Electrolytic and Water Balance Substance into Central Vein, Percutaneous Approach (ICD-10-PCS; 2017-02-17)
PROC: 3E023GC Introduction of Other Therapeutic Substance into Muscle, Percutaneous Approach (ICD-10-PCS; 2017-02-17)
DX: Z51.11 Encounter for antineoplastic chemotherapy (principal); C34.91 Malignant neoplasm of unspecified part of right bronchus or lung; D70.1 Agranulocytosis secondary to cancer chemotherapy; D51.0 Vitamin B12 deficiency anemia due to intrinsic factor deficiency
CPT/HCPCS: 96372; 96375; 96411; 96413; J9045; J9305; 36415; 85025; 96360; 96367; J2469

== ENCOUNTER 2017-02-18 07:06 | Day surgery (SDC) | payer OTHER ==
[2017-02-18] MEDS ORDERED: PEGFILGRASTIM 6 MG/0.6 ML DISP.SYRIN SQ ONE (08:00)
[2017-02-18 09:53] VITALS: BP 135/89; PULSE 89
[2017-02-18 09:55] VITALS: TEMP 97.9
== END 2017-02-18 10:02 | disposition home or self-care (01) ==
LOC: JONCCHEMO 07:06 → J7W 09:30 → JONCCHEMO 10:02
PROVIDERS: ATTEND Internal Medicine Hematology & Oncology
PROC: 3E013GC Introduction of Other Therapeutic Substance into Subcutaneous Tissue, Percutaneous Approach (ICD-10-PCS; principal; 2017-02-18)
DX: C34.90 Malignant neoplasm of unspecified part of unspecified bronchus or lung (principal); D70.1 Agranulocytosis secondary to cancer chemotherapy
CPT/HCPCS: 96372; J2505

== ENCOUNTER 2017-03-02 07:12 | Day surgery (SDC) | payer OTHER ==
[2017-03-02] MEDS ORDERED: PORTA CATH FLUSH 10 ML IVPUSH ONE (09:44)
[2017-03-02] MEDS ORDERED: FUROSEMIDE 20 MG TABLET (FP) PO SCH (09:45)
[2017-03-02 10:12] LABS: MCH 25.7 pg (25.7-33.7); MCHC 31.9 g/dl (32.0-35.9); MEAN CELL VOLUME 80.7 fl (80-96); MEAN PLT VOLUME 8.5 fl (7.5-11.1); WHITE BLOOD COUNT 4.5 K/mm3 (4.0-10.0)
[2017-03-02 10:13] LABS: ALBUMIN 3.1 g/dl (3.4-5.0); ALK PHOS 136 U/L (45-117); ANION GAP 13 (8-16); BILIRUBIN,TOTAL 0.4 mg/dL (0.2-1.0); CALCIUM 8.1 mg/dL (8.5-10.1); CO2 28 mmol/L (21-32); COCKROFT - GAULT 0; CREATININE 0.8 mg/dL (0.7-1.3); GLUCOSE,RANDOM 93 mg/dL (74-106); MAGNESIUM 1.7 mg/dL (1.8-2.4); SGOT/AST 26 U/L (15-37); SGPT/ALT 60 U/L (12-78); TOT PROT 6.1 g/dl (6.4-8.2)
[2017-03-02 10:16] LABS: PLATELET COUNT 35 K/MM3 (134-434)
--- NOTE | 2017-03-02 17:11 | PN ---
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 S/P RT to lung. 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 S/P chemotherapy with alimta and carboplatinum. Presents with anemia, thrombocytopenia secondary to chemotherapy. Admitted for transfusion of packed cells and platelets. NKDA ROS- No headaches, diplopia , epistaxis, dysphaia, hoarsnees with change in voice , cough, with no production, minimal SOB with SNYDER. No GI symptoms of nausea, emesis, diarrhea , constipation. No back or bone pains Last Vital Signs Temp Pulse Resp BP Pulse Ox 98.0 F 89 18 109/79 03/02/17 13:30 03/02/17 13:30 03/02/17 13:30 03/02/17 13:30 HEENT: SILVINO, EOM Intact Oropharynx: No thrush, No mucositis Neck: Supple Nodes: Without adenopathy Cor: RSR, No murmurs, No gallops Lungs:scattered rhonchi and wheezes Abd: Soft, Normal bowel sounds, No organomegaly Ext:No significant edema Skin: No rashes, Integument intact CBC, BMP 03/02/17 09:28 03/02/17 09:28 Impression: Anemia- transfuse packed cells Thrombocytopenia- transfuse platelets Lung ca Hoarseness- for TRA evaluation
[2017-03-02] MEDS ORDERED: LISINOPRIL 20 MG TABLET (FP) PO ONE (17:12)
[2017-03-02 18:07] VITALS: BP 118/78; TEMP 98.1
[2017-03-02 18:09] VITALS: PULSE 78
[2017-03-02 19:15] LABS: MCHC 32.9 g/dl (32.0-35.9); MEAN CELL VOLUME 82.1 fl (80-96); MEAN PLT VOLUME 8.8 fl (7.5-11.1); WHITE BLOOD COUNT 5.5 K/mm3 (4.0-10.0)
[2017-03-02 20:23] LABS: ANISOCYTOSIS 2+; HYPOCHROMIA 2+; MICROCYTOSIS 2+; PLATELET ESTIMATE DECREASED (NORMAL); POLYCHROMASIA 1+
[2017-03-02 22:47] LABS: PLATELET COUNT 32 K/MM3 (134-434); PLATELET ESTIMATE DECREASED (NORMAL)
== END 2017-03-02 18:59 | disposition home or self-care (01) ==
LOC: JONCBLOOD 07:12 → J7W 08:58 → JONCBLOOD 18:59
PROVIDERS: ATTEND Internal Medicine Hematology & Oncology
PROC: 30243R1 Transfusion of Nonautologous Platelets into Central Vein, Percutaneous Approach (ICD-10-PCS; principal; 2017-03-02)
PROC: 30243N1 Transfusion of Nonautologous Red Blood Cells into Central Vein, Percutaneous Approach (ICD-10-PCS; 2017-03-02)
DX: D64.9 Anemia, unspecified (principal); D69.6 Thrombocytopenia, unspecified; C34.91 Malignant neoplasm of unspecified part of right bronchus or lung
CPT/HCPCS: 36415; 36430; 80053; 83735; 85025; 85027; 86850; 86900; 86901; 86922; P9034; P9038; P9058

== ENCOUNTER 2017-03-10 07:40 | Emergency (ER) | payer OTHER ==
[2017-03-10 07:47] VITALS: TEMP 97.3; BMI 21.7
--- NOTE | 2017-03-10 07:59 | PDOC ---
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 HISTORY OF PRESENT ILLNESS: The patient states the cough is productive of white sputum. He states the pain in his upper left chest and left upper shoulder is worst in the morning, with certain movements and when he coughs. At times Aleve makes the pain better. He denies f/c, GANT, dizziness, fatigue, sneezing, n/v/d, SOB, abd pain, decrease in appetite, orthopnea, leg swelling and all other symptoms. PCP is Dr. Jp Rolon Oncologist is Dr. Lord. Vital signs on arrival are within normal limits. REVIEW OF SYSTEMS: GENERAL/CONSTITUTIONAL: No fever/chills. No weakness. No weight change. HEAD, EYES, EARS, NOSE AND THROAT: No change in vision. No ear pain or discharge. No sore throat. CARDIOVASCULAR: +left upper chest pain. No shortness of breath. RESPIRATORY: +productive cough of white sputum. No wheezing, or hemoptysis. GASTROINTESTINAL: No nausea, vomiting, diarrhea, constipation. GENITOURINARY: No dysuria, frequency, or change in urination. MUSCULOSKELETAL: +left upper back pain. No neck or back pain. SKIN: No rash or easy bruising. NEUROLOGIC: No headache, vertigo, loss of consciousness, or loss of sensation. PHYSICAL EXAM: GENERAL: The patient is awake, alert, and fully oriented, in no acute distress. He is very well appearing, ambulatory and speaks in full sentences without difficulty. HEAD: Normal with no signs of trauma. ENT: Pupils equal, round and reactive to light, extraocular movements intact, sclera anicteric, conjunctiva clear. Neck supple. LUNGS: Clear to auscultation bilaterally. Normal excursion. No respiratory distress or use of accessory muscles. CHEST WALL: No reproducible chest pain with palpation of left anterior chest. Port located in right anterior chest. CV: RRR, S1/S2, no MRG. Cap refill < 2 sec. ABDOMEN: Soft, non-distended, non-tender even to deep palpation, no hepatomegaly or splenomegaly, no masses. BACK: No reproducible pain with palpation of left upper back. EXTREMITIES: Normal range of motion, no edema. NEUROLOGICAL: Normal speech, normal gait. CN II-XII grossly intact. PSYCH: Normal mood, normal affect. SKIN: Warm, dry, normal turgor, no rashes or lesions noted. Past History - Past Medical History Allergies/Adverse Reactions: Allergies Allergy/AdvReac Type Severity Reaction Status Date / Time No Known Allergies Allergy Verified 03/10/17 07:46 Home Medications: Ambulatory Orders Alprazolam [Xanax] 0.5 mg PO PRN 03/10/17 Fluconazole [Diflucan -] 100 mg PO DAILY 03/10/17 Folic Acid 1 mg PO DAILY 03/10/17 Levothyroxine [Synthroid -] 100 mcg PO DAILY 03/10/17 Magnesium Oxide 400 mg PO BID 03/10/17 Omeprazole 20 mg PO BID 03/10/17 Cancer: Yes (LUNG ADENOCARCINOMA,Starts Chemo ) Thyroid Disease: Yes - Surgical History Lung Surgery: No (lung biopsy) - Psycho/Social/Smoking Cessation Hx Anxiety: No Suicidal Ideation: No Smoking Status: Yes Smoking History: Current some day smoker Have you smoked in the past 12 months: No Number of Cigarettes Smoked Daily: 2 If you are a former smoker, when did you quit?: 1 wk ago Information on smoking cessation initiated: No 'Breaking Loose' booklet given: 11/09/16 Hx Alcohol Use: Yes (CAN OF BEER A DAY) Drug/Substance Use Hx: Yes (SOCIAL) Substance Use Type: None *Physical Exam - Vital Signs Last Vital Signs Temp Pulse Resp BP Pulse Ox 97.3 F L 63 20 113/62 99 03/10/17 07:41 03/10/17 07:41 03/10/17 07:41 03/10/17 07:41 03/10/17 07:41 Heart Score/ECG Review - ECG Intrepretation Comment:: Twelve-lead EKG was performed and reviewed by Dr. Lopez. There is normal sinus rhythm with a normal rate. The axis is normal. The intervals are normal. There are no ST or T wave abnormalities. Impression: Normal twelve-lead EKG ED Treatment Course - LABORATORY CBC & Chemistry Diagram: 03/10/17 08:13 05/17/17 08:13 Medical Decision Making - Medical Decision Making A/P: 51 y/o afebrile male on chemo for lung cancer c/o productive cough of white sputum and left upper chest and back pain x 1 week. Plan is as follows: 1. EKG 2. CTA 3. Labs SPoke with Dr. Lord and he states he has looked at his labs and they look fine. As long as his CTA is ok the patient can be discharged and sent up to [facility] for his chemo treatment. CTA IMPRESSION: No evidence of PE. Informed the patient of all of his results. Will discharge from the ER and send him upstairs to [facility] for his chemotherapy. The patient verbalizes understanding of all instructions, has no further questions and is awaiting discharge. *DC/Admit/Observation/Transfer Diagnosis at time of Disposition: Musculoskeletal pain Lung cancer, upper lobe Qualifiers: Laterality: right Qualified Code(s): C34.11 - Malignant neoplasm of upper lobe , right bronchus or lung - Discharge Dispostion Disposition: HOME Condition at time of disposition: Good - Referrals Referrals: Estrada Lord MD [Primary Care Provider] - - Patient Instructions Printed Discharge Instructions: DI for Musculoskeletal Pain, How To Perform RICE (Rest, Ice, Compress, Elevate) Additional Instructions: Discharge Instructions: -Your labs and imaging results showed no acute issues -Please continue taking Aleve for your pain if needed and follow RICE instructions -Upon discharge today, please go up to [facility] for your chemotherapy -Return to the ER with any worsening or concerning symptoms
[2017-03-10 08:28] LABS: MCH 27.1 pg (25.7-33.7); MCHC 32.8 g/dl (32.0-35.9); MEAN CELL VOLUME 82.5 fl (80-96); MEAN PLT VOLUME 7.6 fl (7.5-11.1); PLATELET COUNT 161 K/MM3 (134-434); RDW 19.2 % (11.9-15.9); WHITE BLOOD COUNT 15.2 K/mm3 (4.0-10.0)
[2017-03-10 09:05] LABS: ALBUMIN 2.9 g/dl (3.4-5.0); ANION GAP 13 (8-16); CALCIUM 9.1 mg/dL (8.5-10.1); CO2 29 mmol/L (21-32); GLUCOSE,RANDOM 90 mg/dL (74-106); SGOT/AST 25 U/L (15-37); SGPT/ALT 29 U/L (12-78)
[2017-03-10 09:10] LABS: ALK PHOS 153 U/L (45-117); BILIRUBIN,TOTAL 0.4 mg/dL (0.2-1.0); COCKROFT - GAULT 97.43; CREATININE 0.9 mg/dL (0.7-1.3); TOT PROT 6.7 g/dl (6.4-8.2); TROPONIN I < 0.02 ng/ml (0.00-0.05)
--- NOTE | 2017-03-10 10:29 | PDOC ---
*Physical Exam - Vital Signs Last Vital Signs Temp Pulse Resp BP Pulse Ox 97.3 F L 63 20 113/62 99 03/10/17 07:41 03/10/17 07:41 03/10/17 07:41 03/10/17 07:41 03/10/17 07:41 - Physical Exam Comments: 03/10/17 10:14 Comfortable, well-appearing, O2 sat within normal limits on room air. ED Treatment Course - LABORATORY CBC & Chemistry Diagram: 03/10/17 08:13 03/10/17 08:13 - ADDITIONAL ORDERS Additional order review: Laboratory Results 03/10/17 08:13 Sodium 135 L Potassium 3.9 Chloride 93 L Carbon Dioxide 29 Anion Gap 13 BUN 10 D Creatinine 0.9 Creat Clearance w eGFR > 60 Random Glucose 90 Calcium 9.1 Total Bilirubin 0.4 AST 25 ALT 29 D Alkaline Phosphatase 153 H Creatine Kinase 46 Troponin I < 0.02 B-Natriuretic Peptide 539.12 H Total Protein 6.7 Albumin 2.9 L 03/10/17 08:13 RBC 3.44 L D MCV 82.5 MCHC 32.8 RDW 19.2 H MPV 7.6 D Neutrophils % Y Lymphocytes % Y Medical Decision Making - Medical Decision Making 03/10/17 10:14 Patient seen and evaluated with the nurse practitioner. I agree with the overall evaluation, assessment, and management with the following summary of visit: 51y/o M known metastatic lung ca p/w new L lung pain that is pleuritic. non productive, baseline unchanged cough, no f/c. r/o progression of disease (per patient known tumors are on the right), r/o PE though VS wnl. labs cta chest discussed with Dr. Lord, who will see the patient. *DC/Admit/Observation/Transfer Diagnosis at time of Disposition: Lung cancer, upper lobe Qualifiers: Laterality: right Qualified Code(s): C34.11 - Malignant neoplasm of upper lobe , right bronchus or lung
[2017-03-10] MEDS ORDERED: OXYCODONE/APAP 5/325MG COMBO TABLET PO ONE (12:04)
[2017-03-10] MEDS ORDERED: oxyCODONE HCL 5 MG TABLET PO ONE (12:11)
[2017-03-10] MEDS ORDERED: oxyCODONE HCL 10 MG SUSTAINED ACTING TABLET ONE (12:12)
[2017-03-10 12:58] VITALS: BP 122/77; PULSE 83
--- NOTE | 2017-03-10 14:42 | EKG ---
Test Reason : Blood Pressure : / mmHG Vent. Rate : 100 BPM Atrial Rate : 100 BPM P-R Int : 144 ms QRS Dur : 074 ms QT Int : 332 ms P-R-T Axes : 052 042 040 degrees QTc Int : 428 ms NORMAL SINUS RHYTHM POSSIBLE LEFT ATRIAL ENLARGEMENT BORDERLINE ECG WHEN COMPARED WITH ECG OF 14-DEC-2016 13:31, NONSPECIFIC T WAVE ABNORMALITY, IMPROVED IN INFERIOR LEADS NONSPECIFIC T WAVE ABNORMALITY NO LONGER EVIDENT IN ANTEROLATERAL LEADS Confirmed by MARCUS VIDAL MD ([id number]) on 03/10/2017 2:41:57 PM Referred By: Confirmed By:MARCUS VIDAL MD
[2017-03-10 18:00] LABS: PLATELET ESTIMATE ADEQUATE (NORMAL)
[2017-03-10 18:01] LABS: ANISOCYTOSIS 1+; HYPOCHROMIA FEW; POLYCHROMASIA FEW
== END 2017-03-10 13:15 | disposition home or self-care (01) ==
LOC: JER 07:40
DX: M79.1 Myalgia (principal); F17.210 Nicotine dependence, cigarettes, uncomplicated; C34.90 Malignant neoplasm of unspecified part of unspecified bronchus or lung; E07.9 Disorder of thyroid, unspecified
CPT/HCPCS: 36415; 71275-TC; 80053; 82550; 83880; 84484; 85025; 93005; 93010; 99283-25

== ENCOUNTER 2017-03-10 13:20 | Day surgery (SDC) | payer OTHER ==
[~2017-03-10 13:20] MED LIST: CARBOPLATIN IVPB ONE; CYANOCOBALAMIN (VITAMIN B-12) 1000 MCG/1 ML VIAL IM ONE; DEXAMETHASONE INJECTION 10 MG in SODIUM CHLORIDE 50 ML IVPB ONE; PALONOSETRON HCL 0.25 MG in SODIUM CHLORIDE 50 ML IVPB ONE; PEMETREXED DISODIUM IVPB ONE; SODIUM CHLORIDE 250 ML IV ONE; SODIUM CHLORIDE IVPB ONE
[2017-03-10] MEDS ORDERED: PORTA CATH FLUSH 10 ML IVPUSH ONE (13:47)
[2017-03-10 17:10] VITALS: BP 126/79; PULSE 96; TEMP 97.5
== END 2017-03-10 17:42 | disposition home or self-care (01) ==
LOC: JONCCHEMO 13:20 → J7W 13:25 → JONCCHEMO 17:42
PROVIDERS: ATTEND Internal Medicine Hematology & Oncology
PROC: 3E04305 Introduction of Other Antineoplastic into Central Vein, Percutaneous Approach (ICD-10-PCS; principal; 2017-03-10)
PROC: 3E043GC Introduction of Other Therapeutic Substance into Central Vein, Percutaneous Approach (ICD-10-PCS; 2017-03-10)
PROC: 3E0437Z Introduction of Electrolytic and Water Balance Substance into Central Vein, Percutaneous Approach (ICD-10-PCS; 2017-03-10)
PROC: 3E023GC Introduction of Other Therapeutic Substance into Muscle, Percutaneous Approach (ICD-10-PCS; 2017-03-10)
DX: Z51.11 Encounter for antineoplastic chemotherapy (principal); C34.91 Malignant neoplasm of unspecified part of right bronchus or lung; D51.0 Vitamin B12 deficiency anemia due to intrinsic factor deficiency; D70.1 Agranulocytosis secondary to cancer chemotherapy
CPT/HCPCS: 96372; 96375; 96411; 96413; J9045; J9305; 96360; 96367; 96417; J2469

== ENCOUNTER 2017-03-11 07:36 | Day surgery (SDC) | payer OTHER ==
[2017-03-11] MEDS ORDERED: PEGFILGRASTIM 6 MG/0.6 ML DISP.SYRIN SQ ONE (08:00)
[2017-03-11 10:06] VITALS: BP 129/76; PULSE 110; TEMP 98
== END 2017-03-11 10:29 | disposition home or self-care (01) ==
LOC: JONCCHEMO 07:36 → J7W 10:03 → JONCCHEMO 10:29
PROVIDERS: ATTEND Internal Medicine Hematology & Oncology
PROC: 3E013GC Introduction of Other Therapeutic Substance into Subcutaneous Tissue, Percutaneous Approach (ICD-10-PCS; principal; 2017-03-11)
DX: C34.91 Malignant neoplasm of unspecified part of right bronchus or lung (principal)
CPT/HCPCS: 96372; J2505

== ENCOUNTER 2017-03-18 15:51 | Inpatient (IN) | payer OTHER ==
[2017-03-18 16:03] VITALS: BMI 20.7
--- NOTE | 2017-03-18 16:55 | PDOC ---
History of Present Illness - General Chief Complaint: Lightheaded Stated Complaint: DIZZINESS, LAB VARIANCE (PCP SENT) Time Seen by Provider: 03/18/17 16:23 History Source: Patient Exam Limitations: No Limitations - History of Present Illness Initial Comments: 51 y/o M w/PMH of poorly differentiated adenocarcinoma of lung w/mets, anxiety, hypothyroidism presents to the ER from Dr. Lord's office for light-headedness / symptomatic anemia. Pt had chemo 1 week ago along with neupogen and since Wednesday pt has been feeling light-headed especially when standing or exerting himself and chest pain radiating to L shoulder. The light-headedness and chest pain has remained the same since Wednesday and pain is rated as a 8/10 and sometimes feels like a pressure on his chest. Chest pain alleviated when he takes an aspirin. He denies GANT, visual changes, ringing in ears, SOB at rest, abd pain, dysuria, blood in urine, blood in stool, peripheral swelling. 03/18/17 18:15 Past History - Past Medical History Allergies/Adverse Reactions: Allergies Allergy/AdvReac Type Severity Reaction Status Date / Time No Known Allergies Allergy Verified 03/18/17 16:03 Home Medications: Ambulatory Orders Alprazolam [Xanax] 0.5 mg PO PRN 03/10/17 Folic Acid 1 mg PO DAILY 03/10/17 Levothyroxine [Synthroid -] 100 mcg PO DAILY 03/10/17 Magnesium Oxide 400 mg PO BID 03/10/17 Omeprazole 20 mg PO BID 03/10/17 Naproxen Sodium [Aleve] 220 mg PO BID 03/18/17 Cancer: Yes (LUNG ADENOCARCINOMA,Starts Chemo ) Thyroid Disease: Yes - Surgical History Lung Surgery: No (lung biopsy) - Psycho/Social/Smoking Cessation Hx Anxiety: No Suicidal Ideation: No Smoking Status: Yes Smoking History: Current some day smoker Have you smoked in the past 12 months: No Number of Cigarettes Smoked Daily: 2 If you are a former smoker, when did you quit?: 1 wk ago Information on smoking cessation initiated: No 'Breaking Loose' booklet given: 11/09/16 Hx Alcohol Use: Yes (CAN OF BEER A DAY) Drug/Substance Use Hx: Yes (SOCIAL) Substance Use Type: None Review of Systems - Review of Systems Able to Perform ROS?: Yes Comments:: GENERAL/CONSTITUTIONAL: No fever or chills. HEAD, EYES, EARS, NOSE AND THROAT: No change in vision. No ringing in ears. No difficulty swallowing. CARDIOVASCULAR: +chest pain RESPIRATORY: No new cough, wheezing, or hemoptysis. GASTROINTESTINAL: No nausea, vomiting, diarrhea or constipation. GENITOURINARY: No dysuria, hematuria. NEUROLOGIC: +light-headedness. No headache, vertigo, loss of consciousness *Physical Exam - Vital Signs Last Vital Signs Temp Pulse Resp BP Pulse Ox 97.4 F L 56 L 18 93/51 03/18/17 15:56 03/18/17 15:56 03/18/17 15:56 03/18/17 15:56 Heart Score/ECG Review - ECG Intrepretation Comment:: NSR @ 89 bpm. QTc 450 ms Biatrial enlargement ED Treatment Course - LABORATORY CBC & Chemistry Diagram: 03/18/17 16:48 03/18/17 16:48 Medical Decision Making - Medical Decision Making 03/18/17 16:58 CBCD, CMP, EKG, Cardiac profile, type and screen, pt/INR ordered 03/18/17 17:48 Troponin <0.02, no ST segment changes on EKG. 03/18/17 18:01 WBC 0.9 Hgb 7.2 03/18/17 18:[address] Golden covering for Dr. Lord. Pt to be transfused with 2 units PRBCs. 03/18/17 18:[address] Reyes covering for Dr. Jp Rolon who accepts admission of patient. Pt to be admitted for symptomatic anemia. Chest pain likely seems to be secondary to anemia. ACS unlikely at this time. *DC/Admit/Observation/Transfer Diagnosis at time of Disposition: Symptomatic anemia - Discharge Dispostion Condition at time of disposition: Stable Admit: Yes - Referrals Referrals: Estrada Lord MD [Staff Physician] -
[2017-03-18 17:18] LABS: MCH 26.8 pg (25.7-33.7); MCHC 32.3 g/dl (32.0-35.9); MEAN PLT VOLUME 8.2 fl (7.5-11.1); PLATELET COUNT 133 K/MM3 (134-434); RDW 18.7 % (11.9-15.9)
[2017-03-18 17:21] LABS: WHITE BLOOD COUNT 0.9 K/mm3 (4.0-10.0)
[2017-03-18 17:38] LABS: INR 1.19 (0.82-1.09); PROTHROMBIN TIME (PATIENT) 13.1 SEC (9.98-11.88)
[2017-03-18 17:40] LABS: ACTIVATED PTT 34.8 SECONDS (26.9-34.4)
[2017-03-18 17:41] LABS: ALBUMIN 3.2 g/dl (3.4-5.0); ALK PHOS 142 U/L (45-117); ANION GAP 14 (8-16); BILIRUBIN,TOTAL 0.5 mg/dL (0.2-1.0); CO2 29 mmol/L (21-32); COCKROFT - GAULT 83; GLUCOSE,RANDOM 118 mg/dL (74-106); SGOT/AST 26 U/L (15-37); SGPT/ALT 21 U/L (12-78); TOT PROT 7.1 g/dl (6.4-8.2)
[2017-03-18 17:42] LABS: TROPONIN I < 0.02 ng/ml (0.00-0.05)
[2017-03-18] MEDS ORDERED: POTASSIUM CHLORIDE TABS 20 MEQ TABLET.ER (FP) PO ONE ×2 (17:49→18:08)
[2017-03-18 17:55] LABS: ANISOCYTOSIS 1+; HYPOCHROMIA 1+; MICROCYTOSIS 1+; PLATELET ESTIMATE DECREASED (NORMAL); POLYCHROMASIA 1+
--- NOTE | 2017-03-18 18:01 | PDOC ---
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 - Physicial Exam PE: 03/18/17 17:57 Patient is awake and alert, afebrile, mildly hypotensive on the initial evaluation, with improved vital signs without intervention Conjunctiva are pale ; there is no JVD; lungs reveal intermittent rhonchi on the right and clear breath sounds on the left; our are R without murmurs rubs or gallops; there is no pericardial friction rub. Abdominal exam reveals no focal tenderness, there is no guarding or rebound, and there is no lower extremity edema - Medical Decision Making 03/18/17 17:59 51-year-old male with poorly differentiated adenocarcinoma of lung with metastases presents with signs and symptoms of symptomatic anemia with orthostatics and chest pain. CBC reveals leukopenia with white blood cell count of 0.9. H&H is noted to be 7.4 and 22. Platelets are noted to be 133. EKG shows no evidence of acute ischemia. First set of cardiac enzymes is within normal limit. Patient has already taken aspirin earlier today. Will transfuse 2 units of packed cells. Will admit to telemetry further evaluation and treatment.
[2017-03-18] MEDS ORDERED: OXYCODONE/APAP 5/325MG COMBO TABLET PO ONE (18:45)
[2017-03-18] MEDS ORDERED: OXYCODONE/APAP 5/325MG COMBO TABLET ONE (18:53)
[2017-03-19] MEDS ORDERED: OXYCODONE/APAP 5/325MG COMBO TABLET PO PRN (01:12)
[2017-03-19] MEDS: oxyCODONE HCL 5 MG TABLET PO PRN ×4 (01:37→20:24)
[2017-03-19] MEDS: ACETAMINOPHEN 325 MG TABLET (FP) PO PRN ×4 (01:38→20:23)
[2017-03-19 03:05] LABS: TROPONIN I < 0.02 ng/ml (0.00-0.05)
[2017-03-19] MEDS: LEVOTHYROXINE NA 100 MCG TABLET (FP) PO SCH (07:12)
[2017-03-19 07:18] LABS: MCH 26.9 pg (25.7-33.7); MEAN CELL VOLUME 81.4 fl (80-96); PLATELET COUNT 95 K/MM3 (134-434); RDW 18.6 % (11.9-15.9)
[2017-03-19] MEDS: DEXTROSE 5%-0.45% SALINE 1,000 ML IV SCH ×2 (07:30→21:07)
[2017-03-19 07:43] LABS: ALBUMIN 2.8 g/dl (3.4-5.0); ALK PHOS 115 U/L (45-117); ANION GAP 13 (8-16); BILIRUBIN,TOTAL 0.7 mg/dL (0.2-1.0); CALCIUM 8.4 mg/dL (8.5-10.1); CO2 29 mmol/L (21-32); COCKROFT - GAULT 93; CREATININE 0.9 mg/dL (0.7-1.3); GLUCOSE,RANDOM 86 mg/dL (74-106); SGOT/AST 19 U/L (15-37); SGPT/ALT 16 U/L (12-78)
[2017-03-19 07:58] LABS: WHITE BLOOD COUNT 0.7 K/mm3 (4.0-10.0)
--- NOTE | 2017-03-19 09:23 | EKG ---
Test Reason : Blood Pressure : / mmHG Vent. Rate : 089 BPM Atrial Rate : 089 BPM P-R Int : 150 ms QRS Dur : 080 ms QT Int : 370 ms P-R-T Axes : 059 050 037 degrees QTc Int : 450 ms NORMAL SINUS RHYTHM BIATRIAL ENLARGEMENT NONSPECIFIC ST ABNORMALITY ABNORMAL ECG WHEN COMPARED WITH ECG OF 10-MAR-2017 08:24, NO SIGNIFICANT CHANGE WAS FOUND Confirmed by BAO BRADFORD MD ([id number]) on 03/19/2017 9:22:27 AM Referred By: Confirmed By:BAO BRADFORD MD
[2017-03-19 09:53] LABS: METAMYELOCYTE 2 % (0-2); PLATELET ESTIMATE DECREASED (NORMAL)
[2017-03-19] MEDS: PANTOPRAZOLE 20 MG TABLET (FP) PO SCH ×2 (10:04→21:08)
[2017-03-19] MEDS: FOLIC ACID 1 MG TABLET (FP) PO SCH (10:04)
[2017-03-19] MEDS: MAGNESIUM OXIDE 400 MG TABLET (FP) PO SCH ×2 (10:04→21:07)
--- NOTE | 2017-03-19 10:12 | CON.CARD ---
Consult Consult Specialty:: Cardiology Referred by:: Milayds Reyes MD Reason for Consultation:: Near syncope - History of Present Illness Chief Complaint: Near syncope History of Present Illness: 51-year-old male with history of poorly differentiated NSCLC (adenoca) with metastases to left cerebellum, right cerebellar ischemic stroke, hypothyroidism , pericardial effusion, referred to the ER for light-headedness, dyspnea, orthostasis, chronic migratory intermittent atypical chest discomfort, as well as low H&H obtained during a routine outpatient evaluation. His symptoms have resolved post 2 u PRBC transfusion, he denies fevers, chills, palpitations, true syncope, orthopnea, PND or LE edema. During previous admission echocardiogram showed moderate pericardial effusion with full expansion of RA and RV. 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 No: O2 Dependent Endocrine: Yes: Hypothyroidism. No: Diabetes Mellitus - Alcohol/Substance Use Hx Alcohol Use: Yes (CAN OF BEER A DAY) - Smoking History Smoking history: Current some day smoker Have you smoked in the past 12 months: No Aproximately how many cigarettes per day: 2 If you are a former smoker, when did you quit?: 1 wk ago - Social History History of Recent Travel: No Home Medications - Allergies Allergies/Adverse Reactions: Allergies Allergy/AdvReac Type Severity Reaction Status Date / Time No Known Allergies Allergy Verified 03/18/17 16:03 - Home Medications Home Medications: Ambulatory Orders Alprazolam [Xanax] 0.5 mg PO PRN 03/10/17 Folic Acid 1 mg PO DAILY 03/10/17 Levothyroxine [Synthroid -] 100 mcg PO DAILY 03/10/17 Magnesium Oxide 400 mg PO BID 03/10/17 Omeprazole 20 mg PO BID 03/10/17 Naproxen Sodium [Aleve] 220 mg PO BID 03/18/17 Review of Systems - Review of Systems Cardiovascular: reports: Chest Pain Respiratory: reports: SOB Neurological: reports: Dizziness Vital Signs: Vital Signs Temperature 98.2 F 03/19/17 08:10 Pulse Rate 76 03/19/17 08:10 Respiratory Rate 16 03/19/17 08:10 Blood Pressure 110/80 03/19/17 08:10 O2 Sat by Pulse Oximetry (%) 100 03/18/17 23:50 Constitutional: Yes: No Distress, Calm, Thin Neck: Yes: Supple Respiratory: Yes: Regular, Diminished Gastrointestinal: Yes: Normal Bowel Sounds, Soft Cardiovascular: Yes: Regular Rate and Rhythm JVD: No Carotid Bruit: No Heart Sounds: Yes: S1, S2 Murmur: Yes: Systolic Murmur, Grade 1 Edema: No - Other Data Labs, Other Data: CBC, BMP 03/19/17 05:35 03/19/17 05:35 INR, PTT INR 1.19 (0.82-1.09) H 03/18/17 16:48 Troponin, BNP 03/19/17 02:20 Troponin I < 0.02 Troponin, BNP 03/19/17 02:20 Troponin I < 0.02 Echo: Pending Ejection Fraction %: LVEF > or = 40 % Problem List - Problems (1) Symptomatic anemia Code(s): D64.9 - ANEMIA, UNSPECIFIED (2) Acquired pancytopenia Code(s): D61.818 - OTHER PANCYTOPENIA (3) COPD (chronic obstructive pulmonary disease) Code(s): J44.9 - CHRONIC OBSTRUCTIVE PULMONARY DISEASE, UNSPECIFIED Qualifiers : COPD type: unspecified COPD Qualified Code(s): J44.9 - Chronic obstructive pulmonary disease, unspecified (4) Hypothyroidism Code(s): E03.9 - HYPOTHYROIDISM, UNSPECIFIED Qualifiers: Hypothyroidism type: unspecified Qualified Code(s): E03.9 - Hypothyroidism, unspecified (5) Orthostatic hypotension Code(s): I95.1 - ORTHOSTATIC HYPOTENSION (6) Pancytopenia Code(s): D61.818 - OTHER PANCYTOPENIA (7) Primary lung adenocarcinoma Code(s): C34.90 - MALIGNANT NEOPLASM OF UNSP PART OF UNSP BRONCHUS OR LUNG Qualifiers: Laterality: right Qualified Code(s): C34.91 - Malignant neoplasm of unspecified part of right bronchus or lung (8) Brain metastases Code(s): C79.31 - SECONDARY MALIGNANT NEOPLASM OF BRAIN (9) Cerebrovascular disease in cancer patient Code(s): I67.9 - CEREBROVASCULAR DISEASE, UNSPECIFIED C80.1 - MALIGNANT (PRIMARY) NEOPLASM, UNSPECIFIED Assessment/Plan 1. Orthostasis, pancytopenia post chemotherapy 2. H/o Pericardial effusion 3. 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 Hypothyroidism 5. COPD 6. Right cerebellar ischemic stroke PLAN: 1. F/u repeat echocardiography to assess pericardial effusion severity 2. Transfuse blood products per heme-onc 3. Neutropenic precautions 4. Thank you for consultative opportunity
[2017-03-19] MEDS: HEPARIN NA (PORCINE) 5,000 UNITS/ML 1ML VIAL SQ SCH ×2 (11:06→21:06)
--- NOTE | 2017-03-19 11:32 | PN ---
Progress Note (short form) - Note Progress Note: ID consult dictated imp/reccd symptomatic anemia s/p chemo last week 03/11-s/p blood transfusion left sided chest pain with inspiration- for one week- s/p chest cta last week- persistent neutropenia s/p chemo for metastatic adenocarcinoma will get blood cultures will get chest xray d/w oncology reviewed ct scan with radiology- concern for air/space disease on left given neutropenia will start cefepime/zithromax legionella urinay antigen cxray order blood cultures ordered Problem List - Problems (1) Pneumonia Code(s): J18.9 - PNEUMONIA, UNSPECIFIED ORGANISM Qualifiers: Pneumonia type: due to unspecified organism Laterality: right Lung location: lower lobe of lung Qualified Code(s): J18.9 - Pneumonia, unspecified organism (2) Neutropenia Code(s): D70.9 - NEUTROPENIA, UNSPECIFIED (3) Metastatic adenocarcinoma Code(s): C79.9 - SECONDARY MALIGNANT NEOPLASM OF UNSPECIFIED SITE
[2017-03-19] MEDS ORDERED: CEFEPIME HCL 2 GM VIAL (RESTRICTED TO ID) IVPB SCH (12:15)
[2017-03-19] MEDS: AZITHROMYCIN IVPB 250 ML IVPB SCH (13:38)
[2017-03-19] MEDS: CEFEPIME 2 GM in DEXTROSE 5%-WATER - 100 ML IVPB SCH ×2 (13:38→20:44)
--- NOTE | 2017-03-19 14:05 | HP ---
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 No: O2 Dependent Heme/Onc: Yes: Anemia, Other (Adenocarcinoma lung cancer Pancytopenia) Endocrine: Yes: Hypothyroidism. No: Diabetes Mellitus - Smoking History Smoking history: Current some day smoker Have you smoked in the past 12 months: No Aproximately how many cigarettes per day: 2 If you are a former smoker, when did you quit?: 1 wk ago - Alcohol/Substance Use Hx Alcohol Use: Yes (CAN OF BEER A DAY) - Social History History of Recent Travel: No Home Medications - Allergies Allergies/Adverse Reactions: Allergies Allergy/AdvReac Type Severity Reaction Status Date / Time No Known Allergies Allergy Verified 03/18/17 16:03 - Home Medications Home Medications: Ambulatory Orders Alprazolam [Xanax] 0.5 mg PO PRN 03/10/17 Folic Acid 1 mg PO DAILY 03/10/17 Levothyroxine [Synthroid -] 100 mcg PO DAILY 03/10/17 Magnesium Oxide 400 mg PO BID 03/10/17 Omeprazole 20 mg PO BID 03/10/17 Naproxen Sodium [Aleve] 220 mg PO BID 03/18/17 Physical Examination Vital Signs: Vital Signs Temperature 98.2 F 03/19/17 08:10 Pulse Rate 76 03/19/17 08:10 Respiratory Rate 16 03/19/17 08:10 Blood Pressure 110/80 03/19/17 08:10 O2 Sat by Pulse Oximetry (%) 95 03/19/17 09:00 Labs: CBC, BMP 03/19/17 05:35 03/19/17 05:35
--- NOTE | 2017-03-19 17:14 | CONS ---
DATE OF CONSULTATION: DATE OF DICTATION: 03/19/2017 REQUESTED BY: Oncology Services. HISTORY OF PRESENT ILLNESS: This is a 51-year-old man. He has a history of metastatic adenocarcinoma who I originally saw in October of this year for possible pneumonia. He had complete opacification of the right hemithorax due to his malignancy. Since that time, he has received chemotherapy and radiation. About a week ago, he developed left-sided pleuritic chest pain. He presented to the emergency room and a CTA of his chest was read as no PE was noted on the left side. The right side of his lung was noted to markedly improved compared to the prior opacification. The left lung was noted to have some ground glass appearance that was felt to be possibly be radiation as well. On review today with the radiologist, there were some areas that were possibly focal opacities. He continues to have left-sided chest pain associated with position and respiration. There is no hemoptysis. He has minimal sputum production. Yesterday, he was feeling dizzy. He was seen by his oncologist, noted to be anemic and sent to the emergency room for symptomatically anemia. He denies fevers or chills. PAST MEDICAL HISTORY: Notable for COPD, metastatic adenocarcinoma of the lung and hypothyroidism. He has a prior history of a cerebellar metastatic lesion consistent with metastasis. SOCIAL HISTORY: He is a former smoker. He lives alone. He is from [place]. 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 There is no history of alcohol or drug use. He occasionally has a can of beer. FAMILY HISTORY: Negative for cancer. ALLERGIES: He has no known drug allergies. CURRENT MEDICATIONS: Include Xanax, folic acid, Synthroid, magnesium oxide, omeprazole and naproxen. He has received 2 units of blood and is currently feeling comfortable. REVIEW OF SYSTEMS: He denies any nausea or vomiting. He has a good appetite. He denies any diarrhea or dysuria. PHYSICAL EXAMINATION: Vital Signs: His temperature is 98.2. His pulse is 76, blood pressure 110/80, respiratory rate 16. He is saturating 95%. HEENT: Examination is normocephalic. His eyes are anicteric. Neck: Supple. He has a port in his right chest, which is nontender. Lungs: Diminished breath sounds at the right side. He has no lesions or no palpable rib pain on his left side. Heart: Regular rate and rhythm. Abdomen: Soft, nontender. Extremities: Without edema. LABORATORY DATA: White count yesterday was 900, today is 700. Hemoglobin is 8.6 after transfusion. Platelets are 95,000. INR is 1.1. BUN and creatinine are 12 and 0.9. LFTs are normal and we have just ordered some blood cultures on him. I reviewed his CAT scan with Dr. Bear, who thought there was some for concern for airspace disease on the left. ASSESSMENT AND PLAN: Given his neutropenia, will start cefepime and his symptoms of persistent left-sided chest pain with inspiration. Will start cefepime and Zithromax. Will obtain a legionella urinary antigen. A chest x-ray has been ordered for comparison and blood cultures have been ordered as well. The case was discussed with Dr. Chantel Salinas. LELA PEARCE M.D. [id number]
[2017-03-19] MEDS: ALPRAZolam 0.25 MG TABLET PO PRN (21:07)
--- NOTE | 2017-03-19 23:28 | PN ---
Progress Note (short form) - Note Progress Note: 51-year-old male with history of poorly differentiated NSCLC (adenoca) with metastases to left cerebellum, right cerebellar ischemic stroke, hypothyroidism , pericardial effusion, referred to the ER for light-headedness, dyspnea, orthostasis, chronic migratory intermittent atypical chest discomfort, as well as low H&H obtained during a routine outpatient evaluation. His symptoms have resolved post 2 u PRBC transfusion, he denies fevers, chills, palpitations, true syncope, orthopnea, PND or LE edema. 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 No: O2 Dependent Endocrine: Yes: Hypothyroidism. No: Diabetes Mellitus - Alcohol/Substance Use Hx Alcohol Use: Yes (CAN OF BEER A DAY) - Smoking History Smoking history: Current some day smoker Home Medications - Allergies Allergies/Adverse Reactions: Allergies Allergy/AdvReac Type Severity Reaction Status Date / Time No Known Allergies Allergy Verified 03/18/17 16:03 - Home Medications Home Medications: Ambulatory Orders Alprazolam [Xanax] 0.5 mg PO PRN 03/10/17 Folic Acid 1 mg PO DAILY 03/10/17 Levothyroxine [Synthroid -] 100 mcg PO DAILY 03/10/17 Magnesium Oxide 400 mg PO BID 03/10/17 Omeprazole 20 mg PO BID 03/10/17 Naproxen Sodium [Aleve] 220 mg PO BID 03/18/17 Last Vital Signs Temp Pulse Resp BP Pulse Ox 97.6 F 79 20 114/68 100 03/20/17 06:00 03/20/17 06:00 03/20/17 06:00 03/20/17 06:00 03/19/17 21:00 Cor: RSR, No murmurs, No gallops Lungs: Clear to P&A Abd: Soft, Normal bowel sounds, No organomegaly Ext:No significant edema Abnormal Lab Results 03/20/17 05:43 WBC 0.8 L* RBC 3.17 L Hgb 8.6 L Hct 26.2 L RDW 18.9 H Plt Count 67 L D A/P 51 y/o patient with metastatic adeno ca of the lung, on carbo/alimta last doese 03/10 with neulasta 03/11 neutropenic also with h/o palliative RT in the past will check cultures ID consult Monitor CBC recent CT showed RT changes and changes s/o chronic consolidation will need to monitor for progressive disease
[2017-03-20] MEDS: CEFEPIME 2 GM in DEXTROSE 5%-WATER - 100 ML IVPB SCH (01:58)
[2017-03-20] MEDS: oxyCODONE HCL 5 MG TABLET PO PRN ×4 (03:04→21:09)
[2017-03-20] MEDS: ACETAMINOPHEN 325 MG TABLET (FP) PO PRN ×4 (03:05→21:08)
[2017-03-20] MEDS: LEVOTHYROXINE NA 100 MCG TABLET (FP) PO SCH (06:21)
[2017-03-20 08:14] LABS: MCH 27.2 pg (25.7-33.7); MCHC 32.9 g/dl (32.0-35.9); MEAN CELL VOLUME 82.7 fl (80-96); MEAN PLT VOLUME 8.2 fl (7.5-11.1); PLATELET COUNT 67 K/MM3 (134-434); RDW 18.9 % (11.9-15.9)
[2017-03-20] MEDS ORDERED: PT OWN MED DRAWER 7, Y5N ONE (08:45)
[2017-03-20] MEDS: AZITHROMYCIN IVPB 250 ML IVPB SCH (09:19)
[2017-03-20] MEDS: MAGNESIUM OXIDE 400 MG TABLET (FP) PO SCH ×2 (09:21→21:08)
[2017-03-20] MEDS: FOLIC ACID 1 MG TABLET (FP) PO SCH (09:22)
[2017-03-20] MEDS: PANTOPRAZOLE 20 MG TABLET (FP) PO SCH ×2 (09:22→21:08)
[2017-03-20] MEDS: HEPARIN NA (PORCINE) 5,000 UNITS/ML 1ML VIAL SQ SCH (09:23)
[2017-03-20] MEDS: DEXTROSE 5%-0.45% SALINE 1,000 ML IV SCH (09:24)
[2017-03-20 09:37] LABS: WHITE BLOOD COUNT 0.8 K/mm3 (4.0-10.0)
--- NOTE | 2017-03-20 09:50 | PN ---
Progress Note, Physician Chief Complaint: ID No complaints NO fever or couph Cefepime and Azithromcyin - Current Medication List Current Medications: Active Medications Acetaminophen (Tylenol -) 650 mg PO Q6H PRN PRN Reason: PAIN LEVEL 6-10 Last Admin: 03/20/17 09:28 Dose: 650 mg Alprazolam (Xanax -) 0.5 mg PO Q8H PRN PRN Reason: ANXIETY Last Admin: 03/19/17 21:07 Dose: 0.5 mg Folic Acid (Folic Acid -) 1 mg PO DAILY [facility] Last Admin: 03/20/17 09:22 Dose: 1 mg Heparin Sodium (Porcine) (Heparin -) 5,000 unit SQ BID [facility] Last Admin: 03/20/17 09:23 Dose: 5,000 unit Dextrose/Sodium Chloride (D5-1/2ns -) 1,000 mls @ 75 mls/hr IV ASDIR [facility] Last Admin: 03/20/17 09:24 Dose: Not Given Azithromycin (Zithromax 500mg Ivpb (Pre-Docked)) 250 mls @ 250 mls/hr IVPB DAILY [facility] Last Admin: 03/20/17 09:19 Dose: 250 mls/hr Cefepime HCl 2 gm/ Dextrose 100 mls @ 100 mls/hr IVPB Q8H-IV [facility] Last Admin: 03/20/17 01:58 Dose: 100 mls/hr Levothyroxine Sodium (Synthroid -) 100 mcg PO DAILY@0700 [facility] Last Admin: 03/20/17 06:21 Dose: 100 mcg Magnesium Oxide (Mag-Ox -) 400 mg PO BID [facility] Last Admin: 03/20/17 09:21 Dose: 400 mg Oxycodone HCl (Roxicodone -) 10 mg PO Q6H PRN PRN Reason: PAIN LEVEL 6-10 Last Admin: 03/20/17 09:18 Dose: 10 mg Pantoprazole Sodium (Protonix -) 20 mg PO BID [facility] Last Admin: 03/20/17 09:22 Dose: 20 mg - Objective Vital Signs: Vital Signs Temperature 97.6 F 03/20/17 06:00 Pulse Rate 79 03/20/17 06:00 Respiratory Rate 20 03/20/17 06:00 Blood Pressure 114/68 03/20/17 06:00 O2 Sat by Pulse Oximetry (%) 100 03/19/17 21:00 HENT: No: Thrush Cardiovascular: Yes: Regular Rate and Rhythm, S1, S2. No: Murmur Respiratory: Yes: Regular, CTA Bilaterally Gastrointestinal: Yes: WNL, Normal Bowel Sounds, Soft. No: Tenderness, Tenderness, Epigastrium Labs: CBC, BMP 03/20/17 05:43 03/19/17 05:35 INR, PTT INR 1.19 (0.82-1.09) H 03/18/17 16:48 Assessment/Plan Microbiology 03/19/17 13:00 Urine - Urine Clean Catch Urine Culture - Final NO GROWTH OBTAINED Laboratory Tests 03/19/17 03/20/17 05:35 05:43 WBC 0.8 L* Hgb 8.6 L Plt Count 67 L D AST 19 D ALT 16 D Alkaline Phosphatase 115 Assessment Lung CA Neutropenia NO actve infection Plan Would stop antibiotics. Discussed with Dr Chantel Park MD
--- NOTE | 2017-03-20 11:36 | PN ---
Progress Note, Physician History of Present Illness: Orthostasis resolved, no events on telemetry. - Current Medication List Current Medications: Active Medications Acetaminophen (Tylenol -) 650 mg PO Q6H PRN PRN Reason: PAIN LEVEL 6-10 Last Admin: 03/20/17 09:28 Dose: 650 mg Alprazolam (Xanax -) 0.5 mg PO Q8H PRN PRN Reason: ANXIETY Last Admin: 03/19/17 21:07 Dose: 0.5 mg Folic Acid (Folic Acid -) 1 mg PO DAILY [facility] Last Admin: 03/20/17 09:22 Dose: 1 mg Heparin Sodium (Porcine) (Heparin -) 5,000 unit SQ BID [facility] Last Admin: 03/20/17 09:23 Dose: 5,000 unit Levothyroxine Sodium (Synthroid -) 100 mcg PO DAILY@0700 [facility] Last Admin: 03/20/17 06:21 Dose: 100 mcg Magnesium Oxide (Mag-Ox -) 400 mg PO BID [facility] Last Admin: 03/20/17 09:21 Dose: 400 mg Oxycodone HCl (Roxicodone -) 10 mg PO Q6H PRN PRN Reason: PAIN LEVEL 6-10 Last Admin: 03/20/17 09:18 Dose: 10 mg Pantoprazole Sodium (Protonix -) 20 mg PO BID [facility] Last Admin: 03/20/17 09:22 Dose: 20 mg - Objective Vital Signs: Vital Signs Temperature 97.6 F 03/20/17 06:00 Pulse Rate 79 03/20/17 06:00 Respiratory Rate 20 03/20/17 06:00 Blood Pressure 114/68 03/20/17 06:00 O2 Sat by Pulse Oximetry (%) 100 03/19/17 21:00 Constitutional: Yes: No Distress, Calm Neck: Yes: Supple Cardiovascular: Yes: Regular Rate and Rhythm Respiratory: Yes: Regular, CTA Bilaterally Gastrointestinal: Yes: Normal Bowel Sounds, Soft Edema: No Labs: CBC, BMP 03/20/17 05:43 03/19/17 05:35 INR, PTT INR 1.19 (0.82-1.09) H 03/18/17 16:48 Problem List - Problems (1) Symptomatic anemia Code(s): D64.9 - ANEMIA, UNSPECIFIED (2) Acquired pancytopenia Code(s): D61.818 - OTHER PANCYTOPENIA (3) COPD (chronic obstructive pulmonary disease) Code(s): J44.9 - CHRONIC OBSTRUCTIVE PULMONARY DISEASE, UNSPECIFIED Qualifiers : COPD type: unspecified COPD Qualified Code(s): J44.9 - Chronic obstructive pulmonary disease, unspecified (4) Hypothyroidism Code(s): E03.9 - HYPOTHYROIDISM, UNSPECIFIED Qualifiers: Hypothyroidism type: unspecified Qualified Code(s): E03.9 - Hypothyroidism, unspecified (5) Orthostatic hypotension Code(s): I95.1 - ORTHOSTATIC HYPOTENSION (6) Pancytopenia Code(s): D61.818 - OTHER PANCYTOPENIA (7) Primary lung adenocarcinoma Code(s): C34.90 - MALIGNANT NEOPLASM OF UNSP PART OF UNSP BRONCHUS OR LUNG Qualifiers: Laterality: right Qualified Code(s): C34.91 - Malignant neoplasm of unspecified part of right bronchus or lung (8) Brain metastases Code(s): C79.31 - SECONDARY MALIGNANT NEOPLASM OF BRAIN (9) Cerebrovascular disease in cancer patient Code(s): I67.9 - CEREBROVASCULAR DISEASE, UNSPECIFIED C80.1 - MALIGNANT (PRIMARY) NEOPLASM, UNSPECIFIED Assessment/Plan 03/19/2017 Echo: MIld cLVH, normal biventricualar size and fxn, mild MR, mild ao dilatation, no pericardial effusion 1. Orthostasis, pancytopenia post chemotherapy (carbo/alimta/neulasta) 2. H/o Pericardial effusion since resolved 3. 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 Hypothyroidism 5. COPD 6. Right cerebellar ischemic stroke PLAN: 1. Transfuse blood products per heme-onc 2. Neutropenic precautions, f/u bld cx off abx 3. D/c telemetry 4. DVT on SQ heparin with caution, GI prophylaxis
[2017-03-20 11:50] LABS: ANISOCYTOSIS 1+; HYPOCHROMIA 2+; PLATELET COMMENT2 NO CLOTTING DETECTED; PLATELET ESTIMATE DECREASED (NORMAL); POLYCHROMASIA 1+
--- NOTE | 2017-03-20 11:57 | PN ---
Progress Note, Physician - Current Medication List Current Medications: Active Medications Acetaminophen (Tylenol -) 650 mg PO Q6H PRN PRN Reason: PAIN LEVEL 6-10 Last Admin: 03/20/17 09:28 Dose: 650 mg Alprazolam (Xanax -) 0.5 mg PO Q8H PRN PRN Reason: ANXIETY Last Admin: 03/19/17 21:07 Dose: 0.5 mg Folic Acid (Folic Acid -) 1 mg PO DAILY [facility] Last Admin: 03/20/17 09:22 Dose: 1 mg Heparin Sodium (Porcine) (Heparin -) 5,000 unit SQ BID [facility] Last Admin: 03/20/17 09:23 Dose: 5,000 unit Levothyroxine Sodium (Synthroid -) 100 mcg PO DAILY@0700 [facility] Last Admin: 03/20/17 06:21 Dose: 100 mcg Magnesium Oxide (Mag-Ox -) 400 mg PO BID [facility] Last Admin: 03/20/17 09:21 Dose: 400 mg Oxycodone HCl (Roxicodone -) 10 mg PO Q6H PRN PRN Reason: PAIN LEVEL 6-10 Last Admin: 03/20/17 09:18 Dose: 10 mg Pantoprazole Sodium (Protonix -) 20 mg PO BID [facility] Last Admin: 03/20/17 09:22 Dose: 20 mg - Objective Vital Signs: Vital Signs Temperature 97.6 F 03/20/17 06:00 Pulse Rate 79 03/20/17 06:00 Respiratory Rate 20 03/20/17 06:00 Blood Pressure 114/68 03/20/17 06:00 O2 Sat by Pulse Oximetry (%) 100 03/19/17 21:00 Labs: CBC, BMP 03/20/17 05:43 03/19/17 05:35 INR, PTT INR 1.19 (0.82-1.09) H 03/18/17 16:48
--- NOTE | 2017-03-20 21:12 | PN ---
Progress Note (short form) - Note Progress Note: Patient seen in follow up. No events overnight. Feeling well. Intermittent vaguely situated cehst pain. Baseline cough, predominantly in the mornings. Meds reviewed. Current Medications Generic Name Dose Route Start Last Admin Trade Name Freq PRN Reason Stop Dose Admin Acetaminophen 650 mg 03/19/17 01:30 03/20/17 14:48 Tylenol - PO 650 mg Q6H PRN Administration PAIN LEVEL 6-10 Alprazolam 0.5 mg 03/19/17 01:15 03/19/17 21:07 Xanax - PO 0.5 mg Q8H PRN Administration ANXIETY Folic Acid 1 mg 03/19/17 10:00 03/20/17 09:22 Folic Acid - PO 1 mg DAILY MARC Administration Levothyroxine Sodium 100 mcg 03/19/17 07:00 03/20/17 06:21 Synthroid - PO 100 mcg DAILY@0700 MARC Administration Magnesium Oxide 400 mg 03/19/17 10:00 03/20/17 09:21 Mag-Ox - PO 400 mg BID MARC Administration Oxycodone HCl 10 mg 03/19/17 01:30 03/20/17 14:45 Roxicodone - PO 10 mg Q6H PRN Administration PAIN LEVEL 6-10 Pantoprazole Sodium 20 mg 03/19/17 10:00 03/20/17 09:22 Protonix - PO 20 mg BID MARC Administration On examination: Last Vital Signs Temp Pulse Resp BP Pulse Ox 98.0 F 78 18 86/57 100 03/20/17 17:00 03/20/17 17:00 03/20/17 17:00 03/20/17 17:00 03/20/17 10:00 General: In no acute distress. Oropharyngeal: No signs mucosal hemorrhage, no mucosal lesions. Extremities: No pallor, no icterus, no pedal edema. Chest:good air entry bilaterally, clear. Abdomen: Soft, not distended, no palpable organomegaly, no masses. Neuro: Alert and oriented, non-focal. CVS: Normal sinus rhythm, S1, S2, no gallop or murmur. Skin: No rash. Labs reviewed: CBC, BMP 03/20/17 05:43 03/19/17 05:35 Assessment: Stage IV NSCLC, last dose carbo/alimta on 03/10, presented with constellation of symptoms, neutropenia and anemia. Symptoms improved following RBC transfusion, and Hb stable. No evidence of sepsis, agree with discontinuation Abics. Received Peg-GCSF on 03/11 - unexpected prolonged neutropenia - observe for now. Consider additional dose G-SCF tomorrow if no change in ANC.
[2017-03-21] MEDS: oxyCODONE HCL 5 MG TABLET PO PRN ×3 (03:18→14:21)
[2017-03-21] MEDS: ACETAMINOPHEN 325 MG TABLET (FP) PO PRN ×3 (03:19→14:22)
[2017-03-21] MEDS: LEVOTHYROXINE NA 100 MCG TABLET (FP) PO SCH (06:30)
[2017-03-21 08:12] VITALS: TEMP 98.2
[2017-03-21 08:53] VITALS: BP 117/73; PULSE 76
[2017-03-21] MEDS: PANTOPRAZOLE 20 MG TABLET (FP) PO SCH (09:08)
[2017-03-21] MEDS: FOLIC ACID 1 MG TABLET (FP) PO SCH (09:08)
[2017-03-21] MEDS: ALPRAZolam 0.25 MG TABLET PO PRN (09:08)
[2017-03-21] MEDS: MAGNESIUM OXIDE 400 MG TABLET (FP) PO SCH (09:08)
[2017-03-21 10:14] LABS: WHITE BLOOD COUNT 2.8 K/mm3 (4.0-10.0)
[2017-03-21 10:15] LABS: MCH 26.7 pg (25.7-33.7); MCHC 32.4 g/dl (32.0-35.9); MEAN CELL VOLUME 82.6 fl (80-96); PLATELET COUNT 38 K/MM3 (134-434); RDW 18.5 % (11.9-15.9)
--- NOTE | 2017-03-21 11:52 | PN ---
Progress Note, Physician History of Present Illness: Orthostasis resolved, no events on telemetry. - Current Medication List Current Medications: Active Medications Acetaminophen (Tylenol -) 650 mg PO Q6H PRN PRN Reason: PAIN LEVEL 6-10 Last Admin: 03/21/17 09:08 Dose: 650 mg Alprazolam (Xanax -) 0.5 mg PO Q8H PRN PRN Reason: ANXIETY Last Admin: 03/21/17 09:08 Dose: 0.5 mg Folic Acid (Folic Acid -) 1 mg PO DAILY [facility] Last Admin: 03/21/17 09:08 Dose: 1 mg Levothyroxine Sodium (Synthroid -) 100 mcg PO DAILY@0700 [facility] Last Admin: 03/21/17 06:30 Dose: 100 mcg Magnesium Oxide (Mag-Ox -) 400 mg PO BID [facility] Last Admin: 03/21/17 09:08 Dose: 400 mg Oxycodone HCl (Roxicodone -) 10 mg PO Q6H PRN PRN Reason: PAIN LEVEL 6-10 Last Admin: 03/21/17 09:08 Dose: 10 mg Pantoprazole Sodium (Protonix -) 20 mg PO BID [facility] Last Admin: 03/21/17 09:08 Dose: 20 mg - Objective Vital Signs: Vital Signs Temperature 98.2 F 03/21/17 08:51 Pulse Rate 76 03/21/17 08:51 Respiratory Rate 18 03/21/17 08:53 Blood Pressure 117/73 03/21/17 08:51 O2 Sat by Pulse Oximetry (%) 100 03/21/17 08:53 Constitutional: Yes: No Distress, Calm, Thin Neck: Yes: Supple Cardiovascular: Yes: Regular Rate and Rhythm Respiratory: Yes: Regular, Diminished Gastrointestinal: Yes: Normal Bowel Sounds, Soft Edema: No Labs: CBC, BMP 03/21/17 09:50 03/19/17 05:35 INR, PTT INR 1.19 (0.82-1.09) H 03/18/17 16:48 Problem List - Problems (1) Symptomatic anemia Code(s): D64.9 - ANEMIA, UNSPECIFIED (2) Acquired pancytopenia Code(s): D61.818 - OTHER PANCYTOPENIA (3) COPD (chronic obstructive pulmonary disease) Code(s): J44.9 - CHRONIC OBSTRUCTIVE PULMONARY DISEASE, UNSPECIFIED Qualifiers : COPD type: unspecified COPD Qualified Code(s): J44.9 - Chronic obstructive pulmonary disease, unspecified (4) Hypothyroidism Code(s): E03.9 - HYPOTHYROIDISM, UNSPECIFIED Qualifiers: Hypothyroidism type: unspecified Qualified Code(s): E03.9 - Hypothyroidism, unspecified (5) Orthostatic hypotension Code(s): I95.1 - ORTHOSTATIC HYPOTENSION (6) Pancytopenia Code(s): D61.818 - OTHER PANCYTOPENIA (7) Primary lung adenocarcinoma Code(s): C34.90 - MALIGNANT NEOPLASM OF UNSP PART OF UNSP BRONCHUS OR LUNG Qualifiers: Laterality: right Qualified Code(s): C34.91 - Malignant neoplasm of unspecified part of right bronchus or lung (8) Brain metastases Code(s): C79.31 - SECONDARY MALIGNANT NEOPLASM OF BRAIN (9) Cerebrovascular disease in cancer patient Code(s): I67.9 - CEREBROVASCULAR DISEASE, UNSPECIFIED C80.1 - MALIGNANT (PRIMARY) NEOPLASM, UNSPECIFIED Assessment/Plan 03/19/2017 Echo: MIld cLVH, normal biventricualar size and fxn, mild MR, mild ao dilatation, no pericardial effusion 1. Orthostasis, pancytopenia post chemotherapy (carbo/alimta/neulasta) 2. H/o Pericardial effusion since resolved 3. 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 Hypothyroidism 5. COPD 6. Right cerebellar ischemic stroke PLAN: 1. Transfuse blood products per heme-onc 2. Neutropenic precautions, ANC recovering post G-CSF, f/u bld cx NGTD off abx 3. D/c telemetry 4. GI prophylaxis
[2017-03-21 12:33] LABS: ANISOCYTOSIS 1+; DOHLE BODIES 1+; MICROCYTOSIS 1+; PLATELET ESTIMATE DECREASED (NORMAL)
--- NOTE | 2017-03-21 14:00 | PN ---
Progress Note (short form) - Note Progress Note: Patient seen in follow up. No events overnight. Feeling well. Chest pain improved/resolved. Baseline cough, predominantly in the mornings. Meds reviewed. Current Medications Acetaminophen (Tylenol -) 650 mg PO Q6H PRN PRN Reason: PAIN LEVEL 6-10 Last Admin: 03/21/17 09:08 Dose: 650 mg Alprazolam (Xanax -) 0.5 mg PO Q8H PRN PRN Reason: ANXIETY Last Admin: 03/21/17 09:08 Dose: 0.5 mg Folic Acid (Folic Acid -) 1 mg PO DAILY [facility] Last Admin: 03/21/17 09:08 Dose: 1 mg Levothyroxine Sodium (Synthroid -) 100 mcg PO DAILY@0700 [facility] Last Admin: 03/21/17 06:30 Dose: 100 mcg Magnesium Oxide (Mag-Ox -) 400 mg PO BID [facility] Last Admin: 03/21/17 09:08 Dose: 400 mg Oxycodone HCl (Roxicodone -) 10 mg PO Q6H PRN PRN Reason: PAIN LEVEL 6-10 Last Admin: 03/21/17 09:08 Dose: 10 mg Pantoprazole Sodium (Protonix -) 20 mg PO BID [facility] Last Admin: 03/21/17 09:08 Dose: 20 mg On examination: Last Vital Signs Temp Pulse Resp BP Pulse Ox 98.2 F 76 18 117/73 100 03/21/17 08:51 03/21/17 08:51 03/21/17 08:53 03/21/17 08:51 03/21/17 08:53 General: In no acute distress. Oropharyngeal: No signs mucosal hemorrhage, no mucosal lesions. Extremities: No pallor, no icterus, no pedal edema. Chest:good air entry bilaterally, clear. Abdomen: Soft, not distended, no palpable organomegaly, no masses. Neuro: Alert and oriented, non-focal. CVS: Normal sinus rhythm, S1, S2, no gallop or murmur. Skin: No rash. Labs reviewed: CBC, BMP 03/21/17 09:50 03/19/17 05:35 Assessment: Stage IV NSCLC, last dose carbo/alimta on 03/10, presented with constellation of symptoms, neutropenia and anemia. Symptoms improved following RBC transfusion, and Hb stable. No evidence of sepsis. Received Peg-GCSF on 03/11 - unexpected prolonged neutropenia - today ANC >1.5. Can be discharged. Dropping platelet count noted. Noted thrombocytopenia with previous cycle. Expected to self-limited. Warrants observation - CBC in 2 days as outpatient.
--- NOTE | 2017-03-24 10:57 | PN ---
Progress Note (short form) - Note Progress Note: 03/24/17 Upon review of the chart pt does have a diagnosis of antineoplastic chemotherapy induced pancytopenia
== END 2017-03-21 14:44 | disposition home or self-care (01) | DRG 136 ==
LOC: JER 15:51 → JERBED 18:19 → J4W 03-19 00:37
PROVIDERS: ADMIT Internal Medicine; ATTEND Internal Medicine
PROC: 30233N1 Transfusion of Nonautologous Red Blood Cells into Peripheral Vein, Percutaneous Approach (ICD-10-PCS; principal; 2017-03-18)
DX: C34.90 Malignant neoplasm of unspecified part of unspecified bronchus or lung (principal); C79.51 Secondary malignant neoplasm of bone; C79.31 Secondary malignant neoplasm of brain; Z72.0 Tobacco use; D72.819 Decreased white blood cell count, unspecified; D61.818 Other pancytopenia; I95.1 Orthostatic hypotension; E03.9 Hypothyroidism, unspecified; J44.9 Chronic obstructive pulmonary disease, unspecified; D64.81 Anemia due to antineoplastic chemotherapy; T45.1X5A Adverse effect of antineoplastic and immunosuppressive drugs, initial encounter; R07.9 Chest pain, unspecified; D61.810 Antineoplastic chemotherapy induced pancytopenia
CPT/HCPCS: 36415; 36430; 71010-TC; 80053; 82550; 84484; 85025; 85027; 85610; 85730; 86850; 86900; 86901; 86922; 87040; 87086; 87899; 93005; 93010; 93306-TC; 99285-25; J1644; P9038; P9058

== ENCOUNTER 2017-03-24 11:44 | Day surgery (SDC) | payer OTHER ==
[2017-03-24 12:49] LABS: MCH 26.6 pg (25.7-33.7); MCHC 32.2 g/dl (32.0-35.9); MEAN CELL VOLUME 82.6 fl (80-96); MEAN PLT VOLUME 7.5 fl (7.5-11.1); RDW 18.8 % (11.9-15.9); WHITE BLOOD COUNT 15.2 K/mm3 (4.0-10.0)
[2017-03-24 12:52] LABS: PLATELET COUNT 16 K/MM3 (134-434)
[2017-03-24 13:04] LABS: INR 1.2 (0.82-1.09); PROTHROMBIN TIME (PATIENT) 13.2 SEC (9.98-11.88)
[2017-03-24 13:06] LABS: ALBUMIN 2.9 g/dl (3.4-5.0); ANION GAP 9 (8-16); BILIRUBIN,TOTAL 0.3 mg/dL (0.2-1.0); CALCIUM 8.7 mg/dL (8.5-10.1); CO2 31 mmol/L (21-32); COCKROFT - GAULT 0; CREATININE 0.8 mg/dL (0.7-1.3); GLUCOSE,RANDOM 94 mg/dL (74-106); MAGNESIUM 1.4 mg/dL (1.8-2.4); SGOT/AST 28 U/L (15-37); SGPT/ALT 28 U/L (12-78); TOT PROT 6.5 g/dl (6.4-8.2)
[2017-03-24 13:08] LABS: ALK PHOS 244 U/L (45-117)
[2017-03-24 14:35] LABS: PLATELET ESTIMATE MARKEDLY DECREASED (NORMAL)
[2017-03-24 16:45] LABS: MCH 26.5 pg (25.7-33.7); MCHC 32.2 g/dl (32.0-35.9); MEAN CELL VOLUME 82.3 fl (80-96); MEAN PLT VOLUME 8.3 fl (7.5-11.1); PLATELET COUNT 76 K/MM3 (134-434); RDW 18.9 % (11.9-15.9); WHITE BLOOD COUNT 13.3 K/mm3 (4.0-10.0)
[2017-03-24] MEDS ORDERED: POTASSIUM CHLORIDE TABS 20 MEQ TABLET.ER (FP) PO ONE ×2 (17:21→23:00)
[2017-03-24] MEDS ORDERED: MAGNESIUM SULF 50% (8.12 MEQ/2 ML-1 GM VIAL) IVPB ONE (17:22)
[2017-03-24] MEDS ORDERED: OXYCODONE/APAP 5/325MG COMBO TABLET PO PRN (17:25)
[2017-03-24] MEDS ORDERED: ALPRAZolam 0.25 MG TABLET PO PRN (17:26)
[2017-03-24] MEDS ORDERED: oxyCODONE HCL 5 MG TABLET PO PRN (17:27)
[2017-03-24] MEDS ORDERED: ACETAMINOPHEN 325 MG TABLET (FP) PO PRN (17:27)
[2017-03-24] MEDS: oxyCODONE HCL 5 MG TABLET PO PRN (20:04)
--- NOTE | 2017-03-24 20:55 | HP ---
Satellite [facility] - Chief Complaint Chief Complaint: Patient seen and examined. [place] [id number]. Denies fever/chills/cough/SOB/pain History Source: Patient - Past Medical History Allergies/Adverse Reactions: Allergies Allergy/AdvReac Type Severity Reaction Status Date / Time No Known Allergies Allergy Verified 03/18/17 16:03 SUPPLY CHAIN TECH: Yes: Alzheimer's Cardiovascular: Yes: Other (Pericardial effusion w/ tamponade) Pulmonary: Yes: COPD, Other (Adenocarcinoma lung ?mets to adrenals Pleural effusion). No: O2 Dependent Heme/Onc: Yes: Anemia, Other (Adenocarcinoma lung cancer Pancytopenia) Endocrine: Yes: Hypothyroidism. No: Diabetes Mellitus - Current Medications Current Medications: Home Medications Medication Instructions Recorded Alprazolam [Xanax] 0.5 mg PO PRN 03/10/17 Folic Acid 1 mg PO DAILY 03/10/17 Levothyroxine [Synthroid -] 100 mcg PO DAILY 03/10/17 Magnesium Oxide 400 mg PO BID 03/10/17 Omeprazole 20 mg PO BID 03/10/17 Naproxen Sodium [Aleve] 220 mg PO BID 03/18/17 [facility]ellite Physical Exam - Physical Examination Vital Signs: Vital Signs Period Temp Pulse Resp BP Sys/Brandon Pulse Ox Last 24 Hr 97.3 F 74 20 110/72 General Appearance: Alert & Oriented x3, No Distress Lung: Clear to auscultation, Normal air movement Heart: Regular rate & rhythm, Normal S1, Normal S2 Abdomen: Soft, No tenderness, Normal bowel sounds Extremities: No edema Neurological: Intact Satellite Impression/Plan - Impression/Plan Impression: 51 y/o patient with metastatic lung cancer comes in with low platelets. getting platelet transfusion. ransfuse 1unit PRBCS. Replete Mg/K
[2017-03-24] MEDS ORDERED: POTASSIUM CHLORIDE ORAL LIQUID 20 MEQ/15 ML ONE (21:21)
[2017-03-24] MEDS ORDERED: MAGNESIUM SULF 50% (8.12 MEQ/2 ML-1 GM VIAL) ONE (21:22)
[2017-03-25] MEDS: oxyCODONE HCL 5 MG TABLET PO PRN ×2 (03:27→09:34)
[2017-03-25] MEDS ORDERED: LEVOTHYROXINE NA 100 MCG TABLET (FP) PO SCH (07:00)
[2017-03-25 07:29] LABS: MCH 27.6 pg (25.7-33.7); MCHC 33.6 g/dl (32.0-35.9); MEAN CELL VOLUME 82.1 fl (80-96); MEAN PLT VOLUME 8.7 fl (7.5-11.1); PLATELET COUNT 67 K/MM3 (134-434); RDW 17.5 % (11.9-15.9); WHITE BLOOD COUNT 16.2 K/mm3 (4.0-10.0)
[2017-03-25 07:58] LABS: ALBUMIN 2.6 g/dl (3.4-5.0); ANION GAP 12 (8-16); BILIRUBIN,TOTAL 0.4 mg/dL (0.2-1.0); CALCIUM 8.4 mg/dL (8.5-10.1); CO2 30 mmol/L (21-32); COCKROFT - GAULT 0; CREATININE 0.8 mg/dL (0.7-1.3); GLUCOSE,RANDOM 80 mg/dL (74-106); MAGNESIUM 1.8 mg/dL (1.8-2.4); SGOT/AST 20 U/L (15-37); SGPT/ALT 23 U/L (12-78); TOT PROT 5.8 g/dl (6.4-8.2)
[2017-03-25 07:59] LABS: ALK PHOS 222 U/L (45-117)
[2017-03-25] MEDS ORDERED: FOLIC ACID 1 MG TABLET (FP) PO SCH (10:00)
[2017-03-25] MEDS ORDERED: MAGNESIUM OXIDE 400 MG TABLET (FP) PO ONE (10:38)
[2017-03-25 11:25] LABS: METAMYELOCYTE 3 % (0-2); PLATELET ESTIMATE DECREASED (NORMAL)
[2017-03-25] MEDS ORDERED: POTASSIUM CHLORIDE TABS 20 MEQ TABLET.ER (FP) PO ONE (11:45)
[2017-03-25 12:03] VITALS: BP 97/71; PULSE 81; TEMP 98.6
== END 2017-03-25 12:24 | disposition home or self-care (01) ==
LOC: JONCBLOOD 11:44 → J7W 11:45 → JONCBLOOD 03-25 12:24
PROVIDERS: ATTEND Internal Medicine Hematology & Oncology
PROC: 30233R1 Transfusion of Nonautologous Platelets into Peripheral Vein, Percutaneous Approach (ICD-10-PCS; principal; 2017-03-24)
DX: C34.90 Malignant neoplasm of unspecified part of unspecified bronchus or lung (principal); D61.818 Other pancytopenia
CPT/HCPCS: 36415; 36430; 80053; 83735; 84134; 85025; 85027; 85610; 85730; 86850; 86900; 86901; 86922; P9034; P9058

== ENCOUNTER 2017-03-31 07:32 | Day surgery (SDC) | payer OTHER ==
[2017-03-31 08:55] LABS: MCH 27.4 pg (25.7-33.7); MCHC 32.9 g/dl (32.0-35.9); MEAN CELL VOLUME 83.3 fl (80-96); PLATELET COUNT 228 K/MM3 (134-434); RDW 18.2 % (11.9-15.9); WHITE BLOOD COUNT 20.2 K/mm3 (4.0-10.0)
[2017-03-31 09:20] LABS: ALBUMIN 3.2 g/dl (3.4-5.0); ALK PHOS 181 U/L (45-117); ANION GAP 11 (8-16); BILIRUBIN,TOTAL 0.3 mg/dL (0.2-1.0); CALCIUM 9.3 mg/dL (8.5-10.1); CO2 32 mmol/L (21-32); COCKROFT - GAULT 67; CREATININE 1.2 mg/dL (0.7-1.3); GLUCOSE,RANDOM 95 mg/dL (74-106); MAGNESIUM 1.6 mg/dL (1.8-2.4); SGOT/AST 23 U/L (15-37); SGPT/ALT 15 U/L (12-78); TOT PROT 7.1 g/dl (6.4-8.2)
[2017-03-31] MEDS ORDERED: SODIUM CHLORIDE 250 ML IV ONE (10:00)
[2017-03-31] MEDS ORDERED: CYANOCOBALAMIN (VITAMIN B-12) 1000 MCG/1 ML VIAL IM ONE (10:00)
[2017-03-31] MEDS ORDERED: DEXAMETHASONE INJECTION 10 MG in SODIUM CHLORIDE 50 ML IVPB ONE (10:00)
[2017-03-31] MEDS ORDERED: PALONOSETRON HCL 0.25 MG in SODIUM CHLORIDE 50 ML IVPB ONE (10:00)
[2017-03-31] MEDS ORDERED: PEMETREXED DISODIUM IVPB ONE (10:30)
[2017-03-31] MEDS ORDERED: SODIUM CHLORIDE IVPB ONE ×2 (10:30→10:40)
[2017-03-31 10:40] VITALS: BP 104/72; PULSE 76; TEMP 97.7
[2017-03-31] MEDS ORDERED: PORTA CATH FLUSH 10 ML IVPUSH PRN (10:40)
[2017-03-31] MEDS ORDERED: CARBOPLATIN IVPB ONE (10:40)
[2017-03-31 10:50] LABS: ANISOCYTOSIS 1+; HYPOCHROMIA 2+; METAMYELOCYTE 4 % (0-2); MICROCYTOSIS 1+; PLATELET ESTIMATE ADEQUATE (NORMAL); TARGET CELLS 2+; TEAR DROP CELLS 1+
== END 2017-03-31 13:56 | disposition home or self-care (01) ==
LOC: JONCCHEMO 07:32 → J7W 10:11 → JONCCHEMO 13:56
PROVIDERS: ATTEND Internal Medicine Hematology & Oncology
PROC: 3E04305 Introduction of Other Antineoplastic into Central Vein, Percutaneous Approach (ICD-10-PCS; principal; 2017-03-31)
PROC: 3E00XGC Introduction of Other Therapeutic Substance into Skin and Mucous Membranes, External Approach (ICD-10-PCS; 2017-03-31)
DX: Z51.11 Encounter for antineoplastic chemotherapy (principal); C34.90 Malignant neoplasm of unspecified part of unspecified bronchus or lung; D61.818 Other pancytopenia; E53.8 Deficiency of other specified B group vitamins
CPT/HCPCS: 36415; 80053; 83735; 84436; 84443; 85025; 96360; 96361; 96367; 96372; 96375; 96413; 96417; J2469; J9305

== ENCOUNTER 2017-04-01 07:22 | Day surgery (SDC) | payer OTHER ==
[2017-04-01] MEDS ORDERED: PEGFILGRASTIM 6 MG/0.6 ML DISP.SYRIN SQ ONE (10:00)
[2017-04-01 11:18] VITALS: BP 115/78; PULSE 80; TEMP 97.5
== END 2017-04-01 11:18 | disposition home or self-care (01) ==
LOC: JONCCHEMO 07:22 → J7W 10:28 → JONCCHEMO 11:18
PROVIDERS: ATTEND Internal Medicine Hematology & Oncology
PROC: 3E013GC Introduction of Other Therapeutic Substance into Subcutaneous Tissue, Percutaneous Approach (ICD-10-PCS; principal; 2017-04-01)
DX: C34.91 Malignant neoplasm of unspecified part of right bronchus or lung (principal); E53.8 Deficiency of other specified B group vitamins; D70.1 Agranulocytosis secondary to cancer chemotherapy
CPT/HCPCS: 96372; J2505

== ENCOUNTER 2017-04-16 07:55 | Day surgery (SDC) | payer OTHER ==
[2017-04-16 10:35] LABS: MCH 26.4 pg (25.7-33.7); MCHC 31.9 g/dl (32.0-35.9); MEAN CELL VOLUME 82.6 fl (80-96); MEAN PLT VOLUME 9.4 fl (7.5-11.1); RDW 18.3 % (11.9-15.9); WHITE BLOOD COUNT 20.5 K/mm3 (4.0-10.0)
[2017-04-16 10:44] LABS: PLATELET COUNT 17 K/MM3 (134-434)
[2017-04-16 11:03] LABS: ALBUMIN 2.9 g/dl (3.4-5.0); ALK PHOS 138 U/L (45-117); ANION GAP 7 (8-16); BILIRUBIN,TOTAL 0.2 mg/dL (0.2-1.0); CALCIUM 8.1 mg/dL (8.5-10.1); CO2 33 mmol/L (21-32); CREATININE 0.9 mg/dL (0.7-1.3); GLUCOSE,RANDOM 85 mg/dL (74-106); MAGNESIUM 1.5 mg/dL (1.8-2.4); SGOT/AST 19 U/L (15-37); SGPT/ALT 21 U/L (12-78); TOT PROT 6.1 g/dl (6.4-8.2)
[2017-04-16 14:32] LABS: METAMYELOCYTE 2 % (0-2)
[2017-04-16 14:33] LABS: PLATELET ESTIMATE MARKEDLY DECREASED (NORMAL)
[2017-04-16] MEDS ORDERED: POTASSIUM CHLORIDE TABS 10 MEQ TABLET.ER (FP) PO ONE ×2 (17:15→19:52)
[2017-04-16] MEDS ORDERED: FUROSEMIDE 40 MG/4 ML INJECTABLE VIAL IVPUSH ONE (17:15)
--- NOTE | 2017-04-16 17:45 | HP ---
Satellite [facility] - Chief Complaint Chief Complaint: PAtient seen and examined. 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 No: O2 Dependent Heme/Onc: Yes: Anemia, Other (Adenocarcinoma lung cancer Pancytopenia) Endocrine: Yes: Hypothyroidism. No: Diabetes Mellitus - Current Medications Current Medications: Home Medications Medication Instructions Recorded Alprazolam [Xanax] 0.5 mg PO PRN 03/10/17 Folic Acid 1 mg PO DAILY 03/10/17 Levothyroxine [Synthroid -] 100 mcg PO DAILY 03/10/17 Magnesium Oxide 400 mg PO BID 03/10/17 Omeprazole 20 mg PO BID 03/10/17 Naproxen Sodium [Aleve] 220 mg PO BID 03/18/17 Satellite Physical Exam - Physical Examination General Appearance: Well Nourished, Well Developed, Alert & Oriented x3 Lung: Clear to auscultation, Normal air movement Heart: Regular rate & rhythm, Normal S1, Normal S2 Abdomen: Soft, No tenderness Extremities: No edema Neurological: Intact Satellite Impression/Plan - Impression/Plan Impression: 51 y/o patient with metastatic lung cancer. pancytopenia due to chemotherapy. transfuse PRBCs/platelets
[2017-04-16] MEDS: MAGNESIUM OXIDE 400 MG TABLET (FP) PO ONE ×2 (21:36→21:39)
[2017-04-16 23:26] VITALS: BP 136/82; PULSE 82; TEMP 98
[2017-04-16 23:41] LABS: MCH 27.2 pg (25.7-33.7); MCHC 32.7 g/dl (32.0-35.9); MEAN CELL VOLUME 83.3 fl (80-96); MEAN PLT VOLUME 8.1 fl (7.5-11.1); PLATELET COUNT 80 K/MM3 (134-434); RDW 16.3 % (11.9-15.9); WHITE BLOOD COUNT 24.2 K/mm3 (4.0-10.0)
== END 2017-04-16 23:00 | disposition home or self-care (01) ==
LOC: JONCBLOOD 07:55 → J7W 08:19 → JONCBLOOD 23:00
PROVIDERS: ATTEND Internal Medicine Hematology & Oncology
PROC: 30233R1 Transfusion of Nonautologous Platelets into Peripheral Vein, Percutaneous Approach (ICD-10-PCS; principal; 2017-04-16)
PROC: 30233N1 Transfusion of Nonautologous Red Blood Cells into Peripheral Vein, Percutaneous Approach (ICD-10-PCS; 2017-04-16)
PROC: 3E033GC Introduction of Other Therapeutic Substance into Peripheral Vein, Percutaneous Approach (ICD-10-PCS; 2017-04-16)
DX: D61.810 Antineoplastic chemotherapy induced pancytopenia (principal); C34.91 Malignant neoplasm of unspecified part of right bronchus or lung; E03.9 Hypothyroidism, unspecified
CPT/HCPCS: 36415; 36430; 80053; 83735; 85025; 85027; 86850; 86900; 86901; 86922; P9034; P9038; P9058

== ENCOUNTER 2017-05-12 07:43 | Day surgery (SDC) | payer OTHER ==
[2017-05-12] MEDS ORDERED: DEXAMETHASONE INJECTION 10 MG in SODIUM CHLORIDE 50 ML IVPB ONE (08:00)
[2017-05-12] MEDS ORDERED: SODIUM CHLORIDE 250 ML IV ONE (08:00)
[2017-05-12] MEDS ORDERED: PALONOSETRON HCL 0.25 MG in SODIUM CHLORIDE 50 ML IVPB ONE (08:00)
[2017-05-12] MEDS ORDERED: CYANOCOBALAMIN (VITAMIN B-12) 1000 MCG/1 ML VIAL IM ONE (08:00)
[2017-05-12] MEDS ORDERED: SODIUM CHLORIDE IVPB ONE (08:30)
[2017-05-12] MEDS ORDERED: PEMETREXED DISODIUM IVPB ONE (08:30)
[2017-05-12 08:59] VITALS: BP 154/90; PULSE 83; TEMP 97.9
[2017-05-12 09:05] LABS: BASOPHIL 0.6 % (0-2.0); EOSINOPHIL 0.6 % (0-4.5); MCH 27.1 pg (25.7-33.7); MCHC 31.5 g/dl (32.0-35.9); MEAN PLT VOLUME 7.8 fl (7.5-11.1); NEUTROPHILS 86.1 % (42.8-82.8); PLATELET COUNT 183 K/MM3 (134-434); RDW 17.3 % (11.9-15.9); WHITE BLOOD COUNT 12.5 K/mm3 (4.0-10.0)
[2017-05-12 09:32] LABS: ALBUMIN 3.5 g/dl (3.4-5.0); ALK PHOS 134 U/L (45-117); ANION GAP 7 (8-16); BILIRUBIN,TOTAL 0.3 mg/dL (0.2-1.0); CALCIUM 9.3 mg/dL (8.5-10.1); CO2 32 mmol/L (21-32); CREATININE 0.9 mg/dL (0.7-1.3); GLUCOSE,RANDOM 103 mg/dL (74-106); MAGNESIUM 1.7 mg/dL (1.8-2.4); SGOT/AST 24 U/L (15-37); SGPT/ALT 28 U/L (12-78); TOT PROT 7.1 g/dl (6.4-8.2)
[2017-05-12 09:33] LABS: BILIRUBIN,DIRECT < 0.1 mg/dL (0.0-0.2)
== END 2017-05-12 12:00 | disposition home or self-care (01) ==
LOC: JONCCHEMO 07:43 → J7W 10:15 → JONCCHEMO 12:00
PROVIDERS: ATTEND Internal Medicine Hematology & Oncology
PROC: 3E04305 Introduction of Other Antineoplastic into Central Vein, Percutaneous Approach (ICD-10-PCS; principal; 2017-05-12)
PROC: 3E043GC Introduction of Other Therapeutic Substance into Central Vein, Percutaneous Approach (ICD-10-PCS; 2017-05-12)
PROC: 3E0437Z Introduction of Electrolytic and Water Balance Substance into Central Vein, Percutaneous Approach (ICD-10-PCS; 2017-05-12)
PROC: 3E013GC Introduction of Other Therapeutic Substance into Subcutaneous Tissue, Percutaneous Approach (ICD-10-PCS; 2017-05-12)
PROC: 3E0337Z Introduction of Electrolytic and Water Balance Substance into Peripheral Vein, Percutaneous Approach (ICD-10-PCS; 2017-05-12)
DX: Z51.11 Encounter for antineoplastic chemotherapy (principal); C34.91 Malignant neoplasm of unspecified part of right bronchus or lung; E53.8 Deficiency of other specified B group vitamins; D70.1 Agranulocytosis secondary to cancer chemotherapy
CPT/HCPCS: 96372; 96375; 96413; J9305; 36415; 80053; 80076; 83735; 85025; J2469

== ENCOUNTER 2017-05-13 07:50 | Day surgery (SDC) | payer OTHER ==
[2017-05-13] MEDS ORDERED: PEGFILGRASTIM 6 MG/0.6 ML DISP.SYRIN SQ ONE (08:00)
[2017-05-13 10:20] VITALS: TEMP 98.4
[2017-05-13] MEDS ORDERED: amLODIPine BESYLATE 5 MG TABLET (FP) PO ONE (10:30)
[2017-05-13 11:03] VITALS: BP 146/97; PULSE 92
== END 2017-05-13 11:30 | disposition home or self-care (01) ==
LOC: JONCNONCHE 07:50 → J7W 09:56 → JONCNONCHE 11:30
PROVIDERS: ATTEND Internal Medicine Hematology & Oncology
PROC: 3E013GC Introduction of Other Therapeutic Substance into Subcutaneous Tissue, Percutaneous Approach (ICD-10-PCS; principal; 2017-05-13)
DX: C34.91 Malignant neoplasm of unspecified part of right bronchus or lung (principal); E53.8 Deficiency of other specified B group vitamins; D70.1 Agranulocytosis secondary to cancer chemotherapy
CPT/HCPCS: 96372; J2505

== ENCOUNTER 2017-05-15 23:24 | Emergency (ER) | payer OTHER ==
[2017-05-15 23:28] VITALS: BMI 24.7
--- NOTE | 2017-05-15 23:59 | PDOC ---
History of Present Illness - General Chief Complaint: Respiratory Stated Complaint: FEVER Time Seen by Provider: 05/15/17 23:41 - History of Present Illness Initial Comments: 05/16/17 00:01 Mr. Guerra is a 51 year old male with a significant past medical history of lung cancer s/p 7/7 treatments of chemotherapy (finishing 3 days ago) who presents to the emergency department after he was feeling "a little off" and noted his temperature to be climbing above 99.9 and came directly to the ER per prior direction of his oncologist. The patient denies back pain outside of his normal (endorses usual back pain from his cancer), denies shortness of breath, headache and dizziness. Denies chills, nausea, vomit, diarrhea and constipation. Denies dysuria, frequency, urgency and hematuria. Allergies: NKDA Past surgical history: Denies Social history: approx. 36 pack year smoking history PMD - Jp Rolon Oncologist: Estrada Lord 05/16/17 00:01 Past History - Past Medical History Allergies/Adverse Reactions: Allergies Allergy/AdvReac Type Severity Reaction Status Date / Time No Known Allergies Allergy Verified 05/15/17 23:28 Home Medications: Ambulatory Orders Alprazolam [Xanax] 0.5 mg PO PRN 03/10/17 Folic Acid 1 mg PO DAILY 03/10/17 Levothyroxine [Synthroid -] 150 mcg PO DAILY 03/10/17 Magnesium Oxide 400 mg PO BID 03/10/17 Omeprazole 20 mg PO BID 03/10/17 Dexamethasone 1 mg PO DAILY 05/15/17 Nystatin Oral Suspension - [Nystatin Oral Susp 517066 Units/5 ML -] 5 ml PO PRN 05/15/17 Oxycodone HCl/Acetaminophen [Oxycodone-Acetaminophen 10-325] 1 each PO PRN 05/15 Anemia: Yes Cancer: Yes (LUNG ADENOCARCINOMA,Starts Chemo ) Thyroid Disease: Yes - Surgical History Lung Surgery: No (lung biopsy) - Psycho/Social/Smoking Cessation Hx Anxiety: No Suicidal Ideation: No Smoking Status: Yes Smoking History: Current some day smoker Have you smoked in the past 12 months: No Number of Cigarettes Smoked Daily: 5 If you are a former smoker, when did you quit?: 1 wk ago Information on smoking cessation initiated: No 'Breaking Loose' booklet given: 11/09/16 Hx Alcohol Use: Yes (CAN OF BEER A DAY) Drug/Substance Use Hx: Yes (SOCIAL) Substance Use Type: None Hx Substance Use Treatment: No Review of Systems - Review of Systems Comments:: 05/16/17 00:01 GENERAL/CONSTITUTIONAL: Endorses thermometer "went to 99.9 and was climbing" at home. No chills. No weakness. HEAD, EYES, EARS, NOSE AND THROAT: +Endorses "squeaking" in his ear with pressure. No change in vision. No ear pain or discharge. No sore throat. CARDIOVASCULAR: No chest pain or shortness of breath RESPIRATORY: +Endorses occasional cough, denies wheezing or hemoptysis. GASTROINTESTINAL: No nausea, vomiting, diarrhea or constipation. GENITOURINARY: No dysuria, frequency, or change in urination. MUSCULOSKELETAL: +Back pain reported at usual level with cancer. No joint or muscle swelling or pain. No neck pain. SKIN: No rash NEUROLOGIC: No headache, vertigo, loss of consciousness, or change in strength/ sensation. ENDOCRINE: No increased thirst. No abnormal weight change HEMATOLOGIC/LYMPHATIC: +Usual easy bleeding reported. Not changed. No anemia or history of blood clots. ALLERGIC/IMMUNOLOGIC: No hives or skin allergy. 05/16/17 00:11 *Physical Exam - Vital Signs Last Vital Signs Temp Pulse Resp BP Pulse Ox 98.8 F 129 H 20 146/90 94 L 05/15/17 23:25 05/15/17 23:25 05/15/17 23:25 05/15/17 23:25 05/15/17 23:25 - Physical Exam Comments: 05/16/17 00:01 GENERAL: Awake, alert, and fully oriented, in no acute distress HEAD: No signs of trauma, normocephalic, atraumatic EYES: PERRLA, EOMI, sclera anicteric, conjunctiva clear ENT: Auricles normal inspection, hearing grossly normal, nares patent, oropharynx clear without exudates. Moist mucosa NECK: Normal ROM, supple, no lymphadenopathy, JVD, or masses LUNGS: Ronchi appreciated throughout R lung berry. Speaks full sentences without distress. HEART: Regular rate and rhythm, normal S1 and S2, no murmurs, rubs or gallops, peripheral pulses normal and equal bilaterally. ABDOMEN: Soft, nontender, normoactive bowel sounds. No guarding, no rebound. No masses EXTREMITIES: +Clubbing noted on all fingers/toes. Normal inspection, Normal range of motion, no edema. No clubbing or cyanosis. NEUROLOGICAL: Cranial nerves II through XII grossly intact. Normal speech, normal gait, no focal sensorimotor deficits SKIN: +Some bruising noted that patient reported was from a mild scrape earlier this week. Warm, Dry, normal turgor, no rashes or lesions noted. 05/16/17 00:13 ED Treatment Course - LABORATORY CBC & Chemistry Diagram: 05/16/17 01:00 05/16/17 01:00 Medical Decision Making - Medical Decision Making 05/16/17 00:15 05/16/17 00:16 Mr. Guerra presents s/p 04/30 chemo treatments for metastatic adenocarcinoma of the lung (finished 3 days prior) with possible fever. PCP had directed him to present to ER if temperature was above 100. Temperature in ER found to be 98.8 and 98.7 on repeat - patient maintains temp was above 100 at home. Patient had completely benign exam physical but complained of some "squeeking" in his R ear - was found to have wax buildup in that ear. Labs drawn for CBC/CMP as well as urinalysis/culture + blood culture in order to r/o infection source of fever. White count 21.9 - up from 12.5 on - given prophylactic levofloxacin 750 mg. Chest PA and lateral as well as EKG ordered in case oncologist requested admit for treatment. x-ray unable to rule out pneumonia or cancerous process. EKG showed mild tachycardia. 05/16/17 06:42 05/16/17 06:57 Oncologist(Pop)'s covering provider was called - Spoke with Dr. Nassar about Mr. Guerra. Dr. Nassar unconcerned about elevated white count, attributed it to booster shot given on . Ok with discharge to home and would like Mr. Guerra to follow-up outpatient. Will discharge to home. 05/16/17 07:00 *DC/Admit/Observation/Transfer Diagnosis at time of Disposition: Fever Qualifiers: Fever type: unspecified Qualified Code(s): R50.9 - Fever, unspecified - Discharge Dispostion Disposition: HOME Condition at time of disposition: Stable - Referrals Referrals: Jp Rolon MD [Primary Care Provider] - Andrea Lord MD [Staff Physician] - - Patient Instructions Additional Instructions: Please return to ER if you have temperature above 100.[address] Lord's instruction or have any concerning symptoms. Follow-up with Dr. Lord outpatient. - Attestations Physician Attestion: 05/16/17 06:44 I, Dr. Jayy Rasmussen, attest that this document has been prepared under my direction and personally reviewed by me in its entirety. I further attest, that it accurately reflects all work, treatment, procedures and medical decision -making performed by me.
--- NOTE | 2017-05-16 01:03 | PDOC ---
Attending Attestation - Resident Resident Name: Jayy Rasmussen - ED Attending Attestation I have performed the following: I have examined & evaluated the patient, The case was reviewed & discussed with the resident, I agree w/resident's findings & plan, Exceptions are as noted - HPI HPI: 05/16/17 01:01 51-year-old male with history of metastatic adenocarcinoma of lung presents with 1 day of feeling unwell and low-grade fever. Patient denies chest pain/ abdominal pain/nausea/vomiting/diarrhea/melena/bright red blood per rectum. - Physicial Exam PE: 05/16/17 01:01 Patient is awake and alert, tachycardic and hypoxemic initial evaluation. There are no meningeal signs. Decreased breath sounds at the left base. Patient's noted to be tachycardic. Abdomen soft nontender, and there is no petechial rash. - Medical Decision Making 05/16/17 01:02 51-year-old male with history of metastatic CA of lung presents 3 days post chemotherapy wi generalized feeling of unwell and low-grade fever. Will panculture. We'll obtain CBC/CMP/chest x-ray/Ua. Patient is noted to be neutropenic, we'll administer ceftazidime. We'll consult heme/conch. Will reassess.
[2017-05-16 01:07] LABS: MCH 26.7 pg (25.7-33.7); MCHC 31.8 g/dl (32.0-35.9); MEAN PLT VOLUME 7.4 fl (7.5-11.1); PLATELET COUNT 126 K/MM3 (134-434); WHITE BLOOD COUNT 21.9 K/mm3 (4.0-10.0)
[2017-05-16 01:08] LABS: URINE APPEARANCE CLEAR; URINE BILIRUBIN NEGATIVE (NEGATIVE); URINE BLOOD 1+ (NEGATIVE); URINE COLOR LTYELLOW; URINE GLUCOSE (UA) NEGATIVE (NEGATIVE); URINE KETONE NEGATIVE (NEGATIVE); URINE LEUK ESTERASE NEGATIVE (NEGATIVE); URINE NITRITE NEGATIVE (NEGATIVE); URINE PROTEIN NEGATIVE (NEGATIVE); URINE UROBILINOGEN NEGATIVE mg/dL (0.2-1.0)
[2017-05-16 01:16] LABS: URINE RBC 1 /hpf (0-3); URINE WBC 2 /hpf (3-5)
[2017-05-16 01:33] LABS: ALBUMIN 3.5 g/dl (3.4-5.0); ANION GAP 10 (8-16); CALCIUM 9.2 mg/dL (8.5-10.1); CO2 32 mmol/L (21-32); CREATININE 0.9 mg/dL (0.7-1.3); GLUCOSE,RANDOM 98 mg/dL (74-106); SGOT/AST 25 U/L (15-37); SGPT/ALT 28 U/L (12-78); TOT PROT 6.8 g/dl (6.4-8.2)
[2017-05-16 01:34] LABS: ALK PHOS 122 U/L (45-117)
[2017-05-16] MEDS ORDERED: LEVOFLOXACIN 750 MG IVPB 150 ML IVPB ONE ×2 (02:30→02:48)
[2017-05-16 05:35] VITALS: BP 118/75; PULSE 89; TEMP 98.4
[2017-05-16 07:18] LABS: HYPOCHROMIA 1+; PLATELET ESTIMATE ADEQUATE (NORMAL); POIKILOCYTOSIS 1+; POLYCHROMASIA FEW
[2017-05-16 07:19] LABS: ANISOCYTOSIS 2+; TARGET CELLS 1+
--- NOTE | 2017-05-17 07:20 | PDOC ---
Patient Follow-up (Call Back) - Post ED Follow - Up Condition at time of discharge: Stable Disposition at time of original discharge: HOME - Disposition Additional Instructions/Notes: Called Mr. Guerra and left message at [phone] regarding lab status to call back today regarding positive blood cultures. Also signed out to team to call oncologist (Dr. Lord) regarding lab results as well.
--- NOTE | 2017-05-17 09:20 | EKG ---
Test Reason : Blood Pressure : / mmHG Vent. Rate : 105 BPM Atrial Rate : 105 BPM P-R Int : 136 ms QRS Dur : 084 ms QT Int : 326 ms P-R-T Axes : 054 047 048 degrees QTc Int : 430 ms SINUS TACHYCARDIA OTHERWISE NORMAL ECG WHEN COMPARED WITH ECG OF 18-MAR-2017 16:28, NO SIGNIFICANT CHANGE WAS FOUND Confirmed by MAGAN VAZ MD ([id number]) on 05/17/2017 9:19:48 AM Referred By: Confirmed By:MAGAN VAZ MD
--- NOTE | 2017-05-17 22:01 | PDOC ---
Patient Follow-up (Call Back) - Post ED Follow - Up Chief Complaint: SIRS, Suspected/Possible Condition at time of discharge: Stable Disposition at time of original discharge: HOME - Disposition Additional Instructions/Notes: discussed positive BC results with the patient's oncologist. He will follow with him tomorrow. is familiar with his pt.
== END 2017-05-16 07:08 | disposition home or self-care (01) ==
LOC: JER 23:24
DX: R50.9 Fever, unspecified (principal); C34.90 Malignant neoplasm of unspecified part of unspecified bronchus or lung; Z87.891 Personal history of nicotine dependence
CPT/HCPCS: 36415; 71020-TC; 80053; 81003; 81015; 85025; 87040; 87086; 87186; 93005; 93010; 96365; 99284-25

== ENCOUNTER 2017-05-18 18:48 | Inpatient (IN) | payer OTHER ==
--- NOTE | 2017-05-18 20:11 | PDOC ---
History of Present Illness - History of Present Illness Initial Comments: 05/18/17 22:49 Patient is a 51 year old male with significant medical hx of lung cancer s/p 04/30 treatments of chemotherapy (last treatment 05/12) who has been sent to the ED by Dr. Lord for positive blood cultures for staph. The patient was seen in the ED on 05/15/17 for low grade fever and discharged the following morning. He states that he received a phone call from Dr. Lord today for positive blood cultures and was referred to the ED. The patient does not offer any complaints at this time aside from his "usual aches and pains". He denies any fever, chills , nausea, vomiting, diarrhea, abdominal pain, chest pain, or shortness of breath. PMD: Jp Rolon MD Oncologist: Estrada Lord MD <La Nena Arce - Last Filed: 05/18/17 23:53> <Fay Noyola - Last Filed: 05/19/17 00:13> - General Chief Complaint: Revisit, Lab Variance Stated Complaint: DOCTOR SEND PT Time Seen by Provider: 05/18/17 19:38 Past History <La Nena Arce - Last Filed: 05/18/17 23:53> - Past Medical History Anemia: Yes Cancer: Yes (LUNG ADENOCARCINOMA,Starts Chemo ) Thyroid Disease: Yes - Surgical History Lung Surgery: No (lung biopsy) - Psycho/Social/Smoking Cessation Hx Anxiety: No Suicidal Ideation: No Smoking Status: Yes Smoking History: Current some day smoker Have you smoked in the past 12 months: No Number of Cigarettes Smoked Daily: 5 If you are a former smoker, when did you quit?: 1 wk ago Information on smoking cessation initiated: No 'Breaking Loose' booklet given: 11/09/16 Hx Alcohol Use: Yes (CAN OF BEER A DAY) Drug/Substance Use Hx: Yes (SOCIAL) Substance Use Type: None Hx Substance Use Treatment: No <Fay Noyola - Last Filed: 05/19/17 00:13> - Past Medical History Allergies/Adverse Reactions: Allergies Allergy/AdvReac Type Severity Reaction Status Date / Time No Known Allergies Allergy Verified 05/18/17 18:53 Home Medications: Ambulatory Orders Alprazolam [Xanax] 0.5 mg PO PRN 03/10/17 Folic Acid 1 mg PO DAILY 03/10/17 Levothyroxine [Synthroid -] 150 mcg PO DAILY 03/10/17 Magnesium Oxide 400 mg PO BID 03/10/17 Omeprazole 20 mg PO BID 03/10/17 Dexamethasone 0.5 mg PO DAILY 05/15/17 Nystatin Oral Suspension - [Nystatin Oral Susp 880794 Units/5 ML -] 5 ml PO PRN 05/15/17 Oxycodone HCl/Acetaminophen [Oxycodone-Acetaminophen 10-325] 1 each PO PRN 05/15 Review of Systems - Review of Systems Comments:: 05/18/17 23:56 CONSTITUTIONAL: Absent: fever, chills, diaphoresis, generalized weakness, malaise, loss of appetite HEENT: Absent: rhinorrhea, nasal congestion, throat pain, throat swelling, difficulty swallowing, mouth swelling, ear pain, eye pain, visual changes CARDIOVASCULAR: Absent: chest pain, syncope, palpitations, irregular heart rate, lightheadedness , peripheral edema RESPIRATORY: Absent: cough, shortness of breath, dyspnea with exertion, orthopnea, wheezing, stridor, hemoptysis GASTROINTESTINAL: Absent: abdominal pain, abdominal distension, nausea, vomiting, diarrhea, constipation, melena, hematochezia GENITOURINARY: Absent: dysuria, frequency, urgency, hesitancy, hematuria, flank pain, genital pain MUSCULOSKELETAL: Absent: myalgia, arthralgia, joint swelling SKIN: Absent: rash, itching, pallor HEMATOLOGIC/IMMUNOLOGIC: Absent: easy bleeding, easy bruising, lymphadenopathy, frequent infections ENDOCRINE: Absent: unexplained weight gain, unexplained weight loss, heat intolerance, cold intolerance NEUROLOGIC: Absent: headache, focal weakness or paresthesia, dizziness, unsteady gait, seizure, mental status changes, bladder or bowel incontinence. PSYCHIATRIC: Absent: anxiety, depression, suicidal or homicidal ideation, hallucinations <La Nena Arce - Last Filed: 05/18/17 23:53> *Physical Exam - Vital Signs Last Vital Signs Temp Pulse Resp BP Pulse Ox 97.6 F 130 H 18 118/76 95 05/18/17 18:50 05/18/17 18:50 05/18/17 18:50 05/18/17 18:50 05/18/17 18:50 - Physical Exam Comments: 05/18/17 23:57 GENERAL: Well developed, well nourished. Awake and alert. No acute distress. HEENT: Normocephalic, atraumatic. PERRLA, EOMI. No conjunctival pallor. Sclera are non- icteric. Moist mucous membranes. Oropharynx is clear. NECK: Supple. Full ROM. No JVD. Carotid pulses 2+ and symmetric, without bruits. No thyromegaly. No lymphadenopathy. CARDIOVASCULAR: Regular rate and rhythm. No murmurs, rubs, or gallops. Distal pulses are 2+ and symmetric. CHEST: Right anterior button port. PULMONARY: No evidence of respiratory distress. Bilateral breath sounds. No wheezing, rales or rhonchi. ABDOMINAL: Soft. Non-tender. Non-distended. No rebound or guarding. No organomegaly. Normoactive bowel sounds. MUSCULOSKELETAL: Normal range of motion at all joints. No bony deformities or tenderness. No CVA tenderness. EXTREMITIES: No cyanosis. No clubbing. No edema. No calf tenderness. SKIN: Warm and dry. Normal capillary refill. No rashes. No jaundice. NEUROLOGICAL: Alert, awake, appropriate, conversant. Cranial nerves 2-12 intact. Normal speech. Ambulatory. Gait is normal without ataxia. PSYCHIATRIC: Cooperative. Good eye contact. Appropriate mood and affect. <La Nena Arce - Last Filed: 05/18/17 23:53> - Vital Signs Last Vital Signs Temp Pulse Resp BP Pulse Ox 97.6 F 130 H 18 118/76 95 05/18/17 18:50 05/18/17 18:50 05/18/17 18:50 05/18/17 18:50 05/18/17 18:50 <Fay Noyola - Last Filed: 05/19/17 00:13> ED Treatment Course - LABORATORY CBC & Chemistry Diagram: 05/18/17 20:27 05/18/17 20:27 - ADDITIONAL ORDERS Additional order review: Laboratory Results 05/18/17 20:27 Sodium Cancelled Potassium Cancelled Chloride Cancelled Carbon Dioxide Cancelled Anion Gap Cancelled BUN Cancelled Creatinine Cancelled Creat Clearance w eGFR Cancelled Random Glucose Cancelled Calcium Cancelled Total Bilirubin Cancelled AST Cancelled ALT Cancelled Alkaline Phosphatase Cancelled Total Protein Cancelled Albumin Cancelled 05/18/17 20:27 RBC 3.17 L MCV 82.8 MCHC 32.1 RDW 16.1 H MPV 8.7 D Neutrophils % 90.0 H Lymphocytes % 4.0 L Monocytes % 5.0 <La Nena Arce - Last Filed: 05/18/17 23:53> - LABORATORY CBC & Chemistry Diagram: 05/18/17 20:27 05/18/17 22:52 <Fay Noyola - Last Filed: 05/19/17 00:13> Medical Decision Making - Medical Decision Making 05/19/17 00:08 51 yo male sent in because his blood cultures were positive for staph. stable vital signs Dr Lord requests port cultures also and ID consultation -no fever now, -seen several days ago and had fever at that time and BC were sent [facility] lung adencarcinoma -lungs cta b/l cvr [id number] neuro [id number] <Fay Noyola - Last Filed: 05/19/17 00:13> *DC/Admit/Observation/Transfer - Attestations Scribe Attestion: 05/18/17 23:58 Documentation prepared by La Nena Arce, acting as medical records auditor for Fay Noyola MD. <La Nena Arce - Last Filed: 05/18/17 23:53> - Discharge Dispostion Admit: Yes <Fay Noyola - Last Filed: 05/19/17 00:13> Diagnosis at time of Disposition: Positive blood cultures Primary lung adenocarcinoma Qualifiers: Laterality: unspecified laterality Qualified Code(s): C34.90 - Malignant neoplasm of unspecified part of unspecified bronchus or lung - Referrals Referrals: Jp Rolon MD [Primary Care Provider] -
[2017-05-18 20:42] LABS: MCH 26.5 pg (25.7-33.7); MCHC 32.1 g/dl (32.0-35.9); MEAN CELL VOLUME 82.8 fl (80-96); MEAN PLT VOLUME 8.7 fl (7.5-11.1); PLATELET COUNT 73 K/MM3 (134-434); RDW 16.1 % (11.9-15.9); WHITE BLOOD COUNT 23.2 K/mm3 (4.0-10.0)
[2017-05-18 21:08] LABS: PLATELET ESTIMATE DECREASED (NORMAL)
[2017-05-18 23:59] LABS: ALBUMIN 3.4 g/dl (3.4-5.0); ANION GAP 11 (8-16); BILIRUBIN,TOTAL 0.6 mg/dL (0.2-1.0); CO2 32 mmol/L (21-32); CREATININE 1.1 mg/dL (0.7-1.3); GLUCOSE,RANDOM 84 mg/dL (74-106); SGOT/AST 25 U/L (15-37); SGPT/ALT 21 U/L (12-78); TOT PROT 6.9 g/dl (6.4-8.2)
[2017-05-19] LABS: ALK PHOS 141 U/L (45-117)
[2017-05-19] MEDS ORDERED: POTASSIUM CHLORIDE TABS 20 MEQ TABLET.ER (FP) PO ONE ×2 (00:04→11:03)
[2017-05-19] MEDS ORDERED: VANCOMYCIN 1,000 MG in DEXTROSE 5%-WATER - 250 ML IVPB STA (00:34)
[2017-05-19] MEDS ORDERED: PIPERACILLIN/TAZOB 3.375 GM 3.375 GM in DEXTROSE 5%-WATER - 50 ML IVPB ONE ×2 (00:35→08:00)
[2017-05-19] MEDS ORDERED: VANCOMYCIN 1 GRAM (PRE-DOCKED) 250 ML IVPB ONE (00:39)
[2017-05-19] MEDS ORDERED: PIPERACILLIN/TAZOB 3.375 GM 50 ML IVPB ONE (00:40)
[2017-05-19 00:59] LABS: URINE APPEARANCE CLEAR; URINE BILIRUBIN NEGATIVE (NEGATIVE); URINE BLOOD NEGATIVE (NEGATIVE); URINE COLOR YELLOW; URINE GLUCOSE (UA) NEGATIVE (NEGATIVE); URINE KETONE NEGATIVE (NEGATIVE); URINE LEUK ESTERASE NEGATIVE (NEGATIVE); URINE NITRITE NEGATIVE (NEGATIVE); URINE PROTEIN NEGATIVE (NEGATIVE); URINE UROBILINOGEN NEGATIVE mg/dL (0.2-1.0)
[2017-05-19 01:47] VITALS: BMI 22.3
[2017-05-19] MEDS ORDERED: PATIENT'S OWN MEDICATION (NON-FORMULARY) (Oxycodone Hcl/Acetaminophen [Oxycodone-Acetamino PO SCH (02:15)
[2017-05-19] MEDS ORDERED: ALPRAZolam 0.25 MG TABLET PO PRN (02:15)
[2017-05-19] MEDS: DEXTROSE 5%-0.45% SALINE 1,000 ML IV SCH (03:45)
[2017-05-19] MEDS: ACETAMINOPHEN 325 MG TABLET (FP) PO PRN ×3 (06:23→20:38)
[2017-05-19] MEDS: oxyCODONE HCL 5 MG TABLET PO PRN ×3 (06:24→20:39)
[2017-05-19] MEDS: LEVOTHYROXINE NA 150 MCG TABLET PO SCH (06:25)
[2017-05-19] MEDS ORDERED: PT OWN MED DRAWER 7, Y5N ONE (06:53)
[2017-05-19 07:32] LABS: BASOPHIL 0.2 % (0-2.0); EOSINOPHIL 0.3 % (0-4.5); MCH 26.9 pg (25.7-33.7); MCHC 32.5 g/dl (32.0-35.9); MEAN CELL VOLUME 82.7 fl (80-96); MEAN PLT VOLUME 7.9 fl (7.5-11.1); NEUTROPHILS 93.1 % (42.8-82.8); PLATELET COUNT 56 K/MM3 (134-434); RDW 16.3 % (11.9-15.9); WHITE BLOOD COUNT 23.4 K/mm3 (4.0-10.0)
[2017-05-19] MEDS ORDERED: PIPERACILLIN/TAZOBACTAM 3.375 GM VIAL IVPB ONE (07:53)
[2017-05-19 07:54] LABS: ALBUMIN 2.9 g/dl (3.4-5.0); ANION GAP 9 (8-16); CALCIUM 8.6 mg/dL (8.5-10.1); CO2 34 mmol/L (21-32); GLUCOSE,RANDOM 103 mg/dL (74-106)
[2017-05-19] MEDS ORDERED: DEXTROSE 5%-WATER - 50 ML IVPB ONE (07:54)
[2017-05-19 07:57] LABS: ALK PHOS 124 U/L (45-117); BILIRUBIN,TOTAL 0.5 mg/dL (0.2-1.0); SGOT/AST 20 U/L (15-37); SGPT/ALT 18 U/L (12-78); TOT PROT 6.1 g/dl (6.4-8.2)
[2017-05-19] MEDS ORDERED: VANCOMYCIN 1,000 MG in DEXTROSE 5%-WATER - 250 ML IVPB SCH (10:00)
[2017-05-19] MEDS ORDERED: PIPERACILLIN/TAZOB 3.375 GM/50 ML PRE-DOCKED IVPB SCH (10:00)
[2017-05-19] MEDS: FOLIC ACID 1 MG TABLET (FP) PO SCH (10:13)
[2017-05-19] MEDS: MAGNESIUM OXIDE 400 MG TABLET (FP) PO SCH ×2 (10:13→21:51)
[2017-05-19] MEDS: PANTOPRAZOLE 20 MG TABLET (FP) PO SCH ×2 (10:13→21:51)
--- NOTE | 2017-05-19 10:49 | CONSULT ---
Consult Consult Specialty:: Oncology/Hematology Reason for Consultation:: mNSCLC on chemo - History of Present Illness History of Present Illness: is a 51 year old male with metastatic NSCLSC ( adeno) , TROUBLE DISPATCHER mets ( s/ p Gamma Knife), s/p carbo/alimta presently on alimta maintenance. Over the weekend, patient presented to the ER with the complains of that his fever was 100 at home and was directed to come to the ER, In the ER, patient has stable vitals, no fever and fever work-up was done and he got discharged. Of note, he did get a dose of ceftazadime in the ER. The blood cultures drwan in the ER now are growing gram positivesatph , leading us to call the patient to come back and be admitted. Patient seen and examined. Patient denies any chest pain, no difference in the mild cough, no runny nose, no diarrhea, no nausea, vomiting. This far he received vancomycin and zosyn. He feel OK now. 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 No: O2 Dependent Endocrine: Yes: Hypothyroidism. No: Diabetes Mellitus - Alcohol/Substance Use Hx Alcohol Use: Yes (CAN OF BEER A DAY) - Smoking History Smoking history: Current some day smoker Have you smoked in the past 12 months: No Aproximately how many cigarettes per day: 5 If you are a former smoker, when did you quit?: 1 wk ago - Social History History of Recent Travel: No Home Medications - Allergies Allergies/Adverse Reactions: Allergies Allergy/AdvReac Type Severity Reaction Status Date / Time No Known Allergies Allergy Verified 05/18/17 18:53 - Home Medications Home Medications: Ambulatory Orders Alprazolam [Xanax] 0.5 mg PO PRN 03/10/17 Folic Acid 1 mg PO DAILY 03/10/17 Levothyroxine [Synthroid -] 150 mcg PO DAILY 03/10/17 Magnesium Oxide 400 mg PO BID 03/10/17 Omeprazole 20 mg PO BID 03/10/17 Dexamethasone 0.5 mg PO DAILY 05/15/17 Nystatin Oral Suspension - [Nystatin Oral Susp 004658 Units/5 ML -] 5 ml PO PRN 05/15/17 Oxycodone HCl/Acetaminophen [Oxycodone-Acetaminophen 10-325] 1 each PO PRN 05/15 Family Disease History - Family Disease History Family History: Denies Review of Systems - Review of Systems Constitutional: denies: Chills, Diaphoresis, Fever, Lethargy, Loss of Appetite Eyes: reports: No Symptoms HENT: reports: Hearing Loss. denies: Difficult Swallowing Neck: denies: Pain on Movement Cardiovascular: denies: Chest Pain, Palpitations, Shortness of Breath Respiratory: reports: Cough (mild). denies: Hemoptysis, SOB Gastrointestinal: denies: Abdominal Pain, Diarrhea, Nausea, Vomiting Genitourinary: denies: Dysuria Neurological: reports: Confusion. denies: Change in LOC, Change in Speech, Dizziness, Headache Hematology/Lymphatic: reports: No Symptoms Physical Exam Vital Signs: Vital Signs Temperature 98.9 F 05/19/17 08:09 Pulse Rate 82 05/19/17 08:09 Respiratory Rate 18 05/19/17 08:09 Blood Pressure 119/60 05/19/17 08:09 O2 Sat by Pulse Oximetry (%) 95 05/19/17 04:00 Constitutional: Yes: No Distress, Calm Eyes: Yes: Conjunctiva Clear HENT: Yes: Atraumatic, Normocephalic Neck: Yes: Supple. No: Lymphadenopathy Cardiovascular: Yes: Regular Rate and Rhythm Respiratory: Yes: Regular, CTA Bilaterally Gastrointestinal: Yes: Normal Bowel Sounds, Soft Edema: No Labs: CBC, BMP 05/19/17 05:35 05/19/17 05:35 Imaging - Results Chest X-ray: Report Reviewed (from 05/15) Problem List - Problems (1) Positive blood cultures Code(s): R78.81 - BACTEREMIA (2) Primary lung adenocarcinoma Code(s): C34.90 - MALIGNANT NEOPLASM OF UNSP PART OF UNSP BRONCHUS OR LUNG Qualifiers: Laterality: unspecified laterality Qualified Code(s): C34.90 - Malignant neoplasm of unspecified part of unspecified bronchus or lung (3) Brain metastases Code(s): C79.31 - SECONDARY MALIGNANT NEOPLASM OF BRAIN (4) Anemia Code(s): D64.9 - ANEMIA, UNSPECIFIED Qualifiers: Bone marrow failure anemia type: pancytopenia, antineoplastic chemotherapy- induced (5) Hypokalemia Code(s): E87.6 - HYPOKALEMIA Assessment/Plan is a patient with mNSCLC (adeno) , TROUBLE DISPATCHER mets s/p Gamma Knife, presently on Carbo/Alimta followed by Alimta maintenance. Positive Blood cultures: -Staph Epi noted on 05/15 in both the blood culture bottles -repeat blood cultures from both the periphery and port pending -Presently on vanc/zosyn -Vanc trough prior to dose 4 -ID consult Anemia: -Chemo induced -7.4 today -will hold off on transfusion today, repeat CBC with Type and screen in the am TROUBLE DISPATCHER mets: -pt on Dex of 0.5mg daily Hypokalemia; -replete K today. mNSCLC: -OP follow-up for his continued treatment.
[2017-05-19] MEDS: DEXAMETHASONE 0.5 MG TABLET PO SCH (11:35)
--- NOTE | 2017-05-19 12:58 | EKG ---
Test Reason : Blood Pressure : / mmHG Vent. Rate : 089 BPM Atrial Rate : 089 BPM P-R Int : 146 ms QRS Dur : 088 ms QT Int : 356 ms P-R-T Axes : 047 037 044 degrees QTc Int : 433 ms NORMAL SINUS RHYTHM POSSIBLE LEFT ATRIAL ENLARGEMENT BORDERLINE ECG WHEN COMPARED WITH ECG OF 16-MAY-2017 05:39, NO SIGNIFICANT CHANGE WAS FOUND Confirmed by MARCUS VIDAL MD ([id number]) on 05/19/2017 12:58:40 PM Referred By: Confirmed By:MARCUS VIDAL MD
[2017-05-19] MEDS: VANCOMYCIN 1 GRAM (PRE-DOCKED) 250 ML IVPB SCH (14:52)
--- NOTE | 2017-05-19 15:08 | CONSULT ---
Consultation: REQUESTING PROVIDER: CONSULT REQUEST: We have been asked to medically evaluate this patient for staph bacteremia s/p chemotherapy. HISTORY OF PRESENT ILLNESS: 51 yo w/ pmh of lung ca (receiving chemotx s/p 04/30 treatments), hypothyroidism who was referred to the ED for positive blood cultures for staph following recent chemo treatment one week ago. Patient received chemo tx one week prior to admission for lung Ca and endorses a mild cough and mild fatigue/ lightheadness following tx, which he states is typical. Pt then visited ED for mild fever taken at home on 05/15/17 and was discharged the following AM. Pt states he received a phone call today from his oncologist, Dr. Lord, that his blood cultures grew staph and was urged to return to ED. He received Vanc 1mg IV in ED and blood cultures were taken from chemo port site and peripheral venous. Pt has never had an infection from chemo port before. Since his discharge on 05/16, patient denies fever, chills, N/V, dysuria, diarrhea, rashes , throat pain, GANT, or LE edema. He endorses some resolving lightheadness/ weakness and improving non-productive cough, but overall has no complaints and is feeling well. He denies any sick contact or recent travel. Of note, he is currently on low dose Decadron for GANT/dizziness following gamma knife Tx for "spot on his brain", now known to be metastases to brain. PMH Anemia Hypothyroidism - since age 8 Lung Ca - Received XRT for 4 weeks. Now 7 rounds of chemo PSH Lung biopsy Gamma knife treatment for suspected brain lesion Allergies None Fam Hx Mother with COPD, smoker Otherwise unremarkable Social Hx Lives alone on SSI. Prior work for 27 years for [employer] No drugs. 35 py smoker, 1 ppd since 14. Recent cut down to 1-2 cigs a day and uses vaporizer. REVIEW OF SYSTEMS: CONSTITUTIONAL: fevers, chills Absent: diaphoresis, generalized weakness, malaise, loss of appetite, weight change HEENT: Absent: rhinorrhea, nasal congestion, throat pain, throat swelling, difficulty swallowing, mouth swelling, ear pain visual changes CARDIOVASCULAR: pleuritic chest pain (posterior, R-sided, often refers to shoulders) Absent: syncope, palpitations, irregular heart rate, lightheadedness, peripheral edema RESPIRATORY: Absent: cough, shortness of breath, dyspnea with exertion, orthopnea, wheezing, stridor, hemoptysis GASTROINTESTINAL: Absent: abdominal pain, abdominal distension, nausea, vomiting, diarrhea, constipation, melena, hematochezia GENITOURINARY: Absent: dysuria, frequency, urgency, hesitancy, hematuria, flank pain, genital pain MUSCULOSKELETAL: Absent: myalgia, arthralgia, joint swelling, back pain, neck pain SKIN: Absent: rash, itching, pallor HEMATOLOGIC/IMMUNOLOGIC: Absent: easy bleeding, easy bruising, lymphadenopathy, frequent infections ENDOCRINE: Absent: unexplained weight gain, unexplained weight loss, heat intolerance, cold intolerance NEUROLOGIC: dizziness Absent: headache, focal weakness or paresthesias, unsteady gait, seizure, mental status changes, bladder or bowel incontinence PSYCHIATRIC: Absent: anxiety, depression, suicidal or homicidal ideation, hallucinations. PHYSICAL EXAMINATION Vital Signs - 24 hr 05/18/17 05/19/17 05/19/17 23:46 00:37 04:00 Temperature 98.5 F Pulse Rate 93 H Pulse Rate [ 96 H Radial] Respiratory 18 18 Rate Blood Pressure 116/83 Blood Pressure 117/82 [Arm] O2 Sat by Pulse 96 98 95 Oximetry (%) 05/19/17 05/19/17 05/19/17 06:10 08:09 09:00 Temperature 97.6 F 98.9 F Pulse Rate 89 82 Pulse Rate [ Radial] Respiratory 18 18 Rate Blood Pressure 113/62 119/60 Blood Pressure [Arm] O2 Sat by Pulse 95 Oximetry (%) 05/19/17 13:47 Temperature 98.5 F Pulse Rate 81 Pulse Rate [ Radial] Respiratory 18 Rate Blood Pressure 113/71 Blood Pressure [Arm] O2 Sat by Pulse Oximetry (%) GENERAL: Awake, alert, and fully oriented, in no acute distress. Pleasant, well- nourished middle aged man HEAD: Normal with no signs of trauma. No temporal arteritis EYES: Pupils equal, round and reactive to light, extraocular movements intact, sclera anicteric, conjunctiva clear. No lid lag. EARS, NOSE, THROAT: Ears normal, nares patent, oropharynx clear without exudates. Possible haryngeal polyp incidentally on R posterior upper pharynx. No thrush. Moist mucous membranes. NECK: Normal range of motion, supple without lymphadenopathy, JVD, or masses. LUNGS: Breath sounds equal, clear to auscultation bilaterally. No wheezes, and no crackles. No accessory muscle use. HEART: Regular rate and rhythm, normal S1 and S2 without murmur, rub or gallop. No displaced PMI. Chemo post present on R upper chest. No surrounding erythema, induration or pain on palpation ABDOMEN: Soft, nontender, not distended, normoactive bowel sounds, no guarding, no rebound, no masses. No hepatomegaly or splenomegaly. MUSCULOSKELETAL: No bony deformities or tenderness. No CVA tenderness. UPPER EXTREMITIES: 2+ pulses, warm, well-perfused. No cyanosis. No clubbing. Cap refill <2 seconds. No peripheral edema. LOWER EXTREMITIES: 2+ pulses, warm, well-perfused. No calf tenderness. No peripheral edema. NEUROLOGICAL: Cranial nerves II-XII intact. Normal speech. gait not evaluated. PSYCHIATRIC: Cooperative. Good eye contact. Appropriate mood and affect. SKIN: Warm, dry, normal turgor, no rashes or lesions noted. Laboratory Results - last 24 hr CBC, BMP 05/19/17 05:35 05/19/17 05:35 05/19/17 05/19/17 05/19/17 00:32 05:35 05:35 WBC 23.4 H RBC 2.77 L Hgb 7.4 L D Hct 22.9 L MCV 82.7 MCH 26.9 MCHC 32.5 RDW 16.3 H Plt Count 56 L D MPV 7.9 Neutrophils % 93.1 H Lymphocytes % 1.9 L D Monocytes % 4.5 Eosinophils % 0.3 Basophils % 0.2 Sodium 136 Potassium 3.1 L Chloride 93 L Carbon Dioxide 34 H Anion Gap 9 BUN 13 Creatinine 1.0 Creat Clearance w eGFR > 60 Random Glucose 103 D Calcium 8.6 Total Bilirubin 0.5 AST 20 ALT 18 Alkaline Phosphatase 124 H Total Protein 6.1 L Albumin 2.9 L Urine Color Yellow Urine Appearance Clear Urine pH 5.0 D Ur Specific [place] 1.020 Urine Protein Negative Urine Glucose (UA) Negative Urine Ketones Negative Urine Blood Negative Urine Nitrite Negative Urine Bilirubin Negative Urine Urobilinogen Negative Ur Leukocyte Esterase Negative Active Medications Generic Name Dose Route Start Last Admin Trade Name Freq PRN Reason Stop Dose Admin Acetaminophen 325 mg 05/19/17 02:25 05/19/17 13:27 Tylenol - PO 325 mg Q6H PRN Administration PAIN Alprazolam 0.5 mg 05/19/17 02:15 05/19/17 13:28 Xanax - PO 0.5 mg DAILY PRN Administration Dexamethasone 0.5 mg 05/19/17 10:00 05/19/17 11:35 Decadron - PO 0.5 mg DAILY MARC Administration Folic Acid 1 mg 05/19/17 10:00 05/19/17 10:13 Folic Acid - PO 1 mg DAILY MARC Administration Dextrose/Sodium Chloride 1,000 mls @ 75 mls/hr 05/19/17 02:15 05/19/17 03:45 D5-1/2ns - IV 75 mls/hr ASDIR MARC Administration Vancomycin HCl 250 mls @ 250 mls/hr 05/19/17 14:00 Vancomycin (Pre-Docked) IVPB BID@0200,1400 [facility] Protocol Levothyroxine Sodium 150 mcg 05/19/17 07:00 05/19/17 06:25 Synthroid - PO 150 mcg DAILY@0700 MARC Administration Magnesium Oxide 400 mg 05/19/17 10:00 05/19/17 10:13 Mag-Ox - PO 400 mg BID MARC Administration Oxycodone HCl 10 mg 05/19/17 02:25 05/19/17 13:28 Roxicodone - PO 10 mg Q6H PRN Administration PAIN Pantoprazole Sodium 20 mg 05/19/17 10:00 05/19/17 10:13 Protonix - PO 20 mg BID MARC Administration Prior CT- chest in March w/ RML nodule and RUL scarring/ scattered atelectasis EKG: NSR. Rate 80-90s. Possible LAE. ASSESSMENT/PLAN: Assessment: 51 yo w/ pmh of lung ca (receiving chemotx s/p 04/30 treatments), hypothyroidism who was referred to the ED for positive blood cultures for staph following recent chemo treatment one week ago. PE unremarkable. Labs unremarkable. No imaging reviewed. Pt afebrile with no current infectious symptoms, w/ an elevated WBC count in the setting of chronic steroid use. Pt likely bacteremic from recent chemo tx, however given immunosuppresion status, recommend continued hospitalization until repeat blood cultures result. Continue Vanc for Staph coverage. Plan: #Staph Bacteremia - No signs of infection - f/u port, peripheral blood cultures - Continue Vanc 1g BID for staph coverage - Monitor for infectious symptoms - Trend WBC, fever curve - d/c if cx's negative Dereck Montoya MD, PGY1 Plan discussed w/ attending, Dr. Duckworth Dispo: We will continue to follow the patient. Thank you for this consultative opportunity. Problem List - Problems (1) Lung cancer Code(s): C34.90 - MALIGNANT NEOPLASM OF UNSP PART OF UNSP BRONCHUS OR LUNG Qualifiers: Laterality: right Visit type - Emergency Visit Emergency Visit: No - New Patient This patient is new to me today: Yes Date on this admission: 05/19/17 - Critical Care Critical Care patient: No
--- NOTE | 2017-05-19 16:36 | HP ---
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 No: O2 Dependent Heme/Onc: Yes: Anemia, Other (Adenocarcinoma lung cancer Pancytopenia) Endocrine: Yes: Hypothyroidism. No: Diabetes Mellitus - Smoking History Smoking history: Current some day smoker Have you smoked in the past 12 months: No Aproximately how many cigarettes per day: 5 If you are a former smoker, when did you quit?: 1 wk ago - Alcohol/Substance Use Hx Alcohol Use: Yes (CAN OF BEER A DAY) - Social History History of Recent Travel: No Home Medications - Allergies Allergies/Adverse Reactions: Allergies Allergy/AdvReac Type Severity Reaction Status Date / Time No Known Allergies Allergy Verified 05/18/17 18:53 - Home Medications Home Medications: Ambulatory Orders Alprazolam [Xanax] 0.5 mg PO PRN 03/10/17 Folic Acid 1 mg PO DAILY 03/10/17 Levothyroxine [Synthroid -] 150 mcg PO DAILY 03/10/17 Magnesium Oxide 400 mg PO BID 03/10/17 Omeprazole 20 mg PO BID 03/10/17 Dexamethasone 0.5 mg PO DAILY 05/15/17 Nystatin Oral Suspension - [Nystatin Oral Susp 368726 Units/5 ML -] 5 ml PO PRN 05/15/17 Oxycodone HCl/Acetaminophen [Oxycodone-Acetaminophen 10-325] 1 each PO PRN 05/15 Physical Examination Vital Signs: Vital Signs Temperature 98.5 F 05/19/17 13:47 Pulse Rate 81 05/19/17 13:47 Respiratory Rate 18 05/19/17 13:47 Blood Pressure 113/71 05/19/17 13:47 O2 Sat by Pulse Oximetry (%) 95 05/19/17 09:00 Labs: CBC, BMP 05/19/17 05:35 05/19/17 05:35
--- NOTE | 2017-05-19 17:01 | PN ---
Teaching Attending Note Name of Resident: Dereck Montoya ATTENDING PHYSICIAN STATEMENT I saw and evaluated the patient. I reviewed the resident's note and discussed the case with the resident. I agree with the resident's findings and plan as documented. SUBJECTIVE: feels great no complaints OBJECTIVE: Vital Signs Period Temp Pulse Resp BP Sys/Brandon Pulse Ox Last 24 Hr 97.6 F-98.9 F 81-130 18-18 113-119/60-83 95-98 cor-rrr lungs clear port site notender, no erythema CBC, BMP 05/19/17 05:35 05/19/17 05:35 blood cultures 05/18 blood culture 05/16 staph epi ASSESSMENT AND PLAN: staph epi bacteremia with port repeat blood cultures pending continue vancomycin history of lung cancer on chemo
[2017-05-19] MEDS: ALPRAZolam 0.25 MG TABLET PO PRN (22:31)
[2017-05-20] MEDS: VANCOMYCIN 1 GRAM (PRE-DOCKED) 250 ML IVPB SCH ×2 (01:26→14:12)
[2017-05-20] MEDS: DEXTROSE 5%-0.45% SALINE 1,000 ML IV SCH ×2 (05:14→09:32)
[2017-05-20] MEDS: ACETAMINOPHEN 325 MG TABLET (FP) PO PRN ×4 (05:17→23:41)
[2017-05-20] MEDS: oxyCODONE HCL 5 MG TABLET PO PRN ×4 (05:17→23:39)
[2017-05-20] MEDS: LEVOTHYROXINE NA 150 MCG TABLET PO SCH (06:21)
[2017-05-20 07:26] LABS: MCH 26.8 pg (25.7-33.7); MCHC 31.9 g/dl (32.0-35.9); MEAN CELL VOLUME 84.2 fl (80-96); MEAN PLT VOLUME 8.2 fl (7.5-11.1); PLATELET COUNT 56 K/MM3 (134-434); RDW 15.8 % (11.9-15.9); WHITE BLOOD COUNT 14.9 K/mm3 (4.0-10.0)
[2017-05-20 07:45] LABS: ALBUMIN 2.8 g/dl (3.4-5.0); ALK PHOS 115 U/L (45-117); ANION GAP 8 (8-16); BILIRUBIN,TOTAL 0.5 mg/dL (0.2-1.0); CALCIUM 8.3 mg/dL (8.5-10.1); CO2 32 mmol/L (21-32); CREATININE 0.8 mg/dL (0.7-1.3); GLUCOSE,RANDOM 88 mg/dL (74-106); SGOT/AST 16 U/L (15-37); SGPT/ALT 17 U/L (12-78); TOT PROT 5.8 g/dl (6.4-8.2)
--- NOTE | 2017-05-20 07:59 | PN ---
Physical Exam: SUBJECTIVE: Patient seen by me this AM - WBC downtrending from 23 -> 14. On decadron 0.5mg daily - Feels well, no complaints or overnight events. Afebrile - Pt anxious to be discharged. Informed about pending blood cx's and possible need for abx - Port grew GP cocci in clusters. Blood cx's pending - Complaining of pruritis on upper chest, back, chin and posterior head. Claims started since hospital admission, no hx of pruritis before. OBJECTIVE: Vital Signs Period Temp Pulse Resp BP Sys/Brandon Pulse Ox Last 24 Hr 98 F-99.2 F 79-90 18-20 105-135/60-78 95-95 GENERAL: Awake, alert, and fully oriented, in no acute distress. Pleasant, well- nourished middle aged man HEAD: Normal with no signs of trauma. No temporal arteritis EYES: extraocular movements intact, sclera anicteric, conjunctiva clear. No lid lag. EARS, NOSE, THROAT: Ears normal, nares patent, oropharynx clear without exudates. No thrush. Moist mucous membranes. NECK: Normal range of motion, supple without lymphadenopathy, JVD, or masses. LUNGS: Breath sounds equal, clear to auscultation bilaterally. No wheezes, and no crackles. No accessory muscle use. HEART: Regular rate and rhythm, normal S1 and S2 without murmur, rub or gallop. No displaced PMI. Chemo port present on R upper chest. No surrounding erythema, induration or pain on palpation. ABDOMEN: Soft, nontender, not distended, normoactive bowel sounds, no guarding, no rebound, no masses. No hepatomegaly or splenomegaly. MUSCULOSKELETAL: No bony deformities or tenderness. No CVA tenderness. UPPER EXTREMITIES: 2+ pulses, warm, well-perfused. No cyanosis. No clubbing. Cap refill <2 seconds. No peripheral edema. LOWER EXTREMITIES: 2+ pulses, warm, well-perfused. No calf tenderness. No peripheral edema. NEUROLOGICAL: Cranial nerves II-XII intact. Normal speech. gait not evaluated. PSYCHIATRIC: Cooperative. Good eye contact. Appropriate mood and affect. SKIN: Warm, dry, normal turgor. Diffuse skin dryness on upper chest and back. Laboratory Results - last 24 hr CBC, BMP 05/20/17 06:00 05/20/17 06:00 05/19/17 05/19/17 05/20/17 00:32 05:35 06:00 WBC 14.9 H D RBC 2.68 L Hgb 7.2 L Hct 22.5 L MCV 84.2 MCH 26.8 MCHC 31.9 L RDW 15.8 Plt Count 56 L MPV 8.2 Sodium 136 Potassium 3.1 L Chloride 93 L Carbon Dioxide 34 H Anion Gap 9 BUN 13 Creatinine 1.0 Creat Clearance w eGFR > 60 Random Glucose 103 D Calcium 8.6 Total Bilirubin 0.5 AST 20 ALT 18 Alkaline Phosphatase 124 H Total Protein 6.1 L Albumin 2.9 L Urine Color Yellow Urine Appearance Clear Urine pH 5.0 D Ur Specific [place] 1.020 Urine Protein Negative Urine Glucose (UA) Negative Urine Ketones Negative Urine Blood Negative Urine Nitrite Negative Urine Bilirubin Negative Urine Urobilinogen Negative Ur Leukocyte Esterase Negative 05/20/17 06:00 WBC RBC Hgb Hct MCV MCH MCHC RDW Plt Count MPV Sodium 137 Potassium 3.1 L Chloride 97 L Carbon Dioxide 32 Anion Gap 8 BUN 10 D Creatinine 0.8 Creat Clearance w eGFR > 60 Random Glucose 88 Calcium 8.3 L Total Bilirubin 0.5 AST 16 ALT 17 Alkaline Phosphatase 115 Total Protein 5.8 L Albumin 2.8 L Urine Color Urine Appearance Urine pH Ur Specific [place] Urine Protein Urine Glucose (UA) Urine Ketones Urine Blood Urine Nitrite Urine Bilirubin Urine Urobilinogen Ur Leukocyte Esterase Microbiology 05/19/17 10:20 Blood - Jackie Cath Blood Culture - Preliminary Pending Organism 05/18/17 20:38 Blood - Peripheral Venous Blood Culture - Preliminary NO GROWTH OBTAINED AFTER 24 HOURS, INCUBATION TO CONTINUE FOR 4 DAYS. 05/18/17 20:27 Blood - Peripheral Venous Blood Culture - Preliminary NO GROWTH OBTAINED AFTER 24 HOURS, INCUBATION TO CONTINUE FOR 4 DAYS. Active Medications Generic Name Dose Route Start Last Admin Trade Name Freq PRN Reason Stop Dose Admin Acetaminophen 325 mg 05/19/17 02:25 05/20/17 05:17 Tylenol - PO 325 mg Q6H PRN Administration PAIN Alprazolam 0.5 mg 05/19/17 22:23 05/19/17 22:31 Xanax - PO 0.5 mg TID PRN Administration ANXIETY Dexamethasone 0.5 mg 05/19/17 10:00 05/19/17 11:35 Decadron - PO 0.5 mg DAILY MARC Administration Folic Acid 1 mg 05/19/17 10:00 05/19/17 10:13 Folic Acid - PO 1 mg DAILY MARC Administration Dextrose/Sodium Chloride 1,000 mls @ 75 mls/hr 05/19/17 02:15 05/20/17 05:14 D5-1/2ns - IV Not Given ASDIR [facility] Vancomycin HCl 250 mls @ 250 mls/hr 05/19/17 14:00 05/20/17 01:26 Vancomycin (Pre-Docked) IVPB 250 mls/hr BID@0200,1400 M[facility] Administration Protocol Levothyroxine Sodium 150 mcg 05/19/17 07:00 05/20/17 06:21 Synthroid - PO 150 mcg DAILY@0700 M[facility] Administration Magnesium Oxide 400 mg 05/19/17 10:00 05/19/17 21:51 Mag-Ox - PO 400 mg BID MARC Administration Oxycodone HCl 10 mg 05/19/17 02:25 05/20/17 05:17 Roxicodone - PO 10 mg Q6H PRN Administration PAIN Pantoprazole Sodium 20 mg 05/19/17 10:00 05/19/17 21:51 Protonix - PO 20 mg BID MARC Administration ASSESSMENT/PLAN: Assessment: 51 yo w/ pmh of lung ca (receiving chemotx s/p 04/30 treatments), hypothyroidism who was referred to the ED for positive blood cultures for staph following recent chemo treatment one week ago. Pt afebrile with no current infectious symptoms, w/ an elevated WBC count in the setting of chronic steroid use. Chemo port culture positive for gram positive cocci in clusters. Pt likely bacteremic from recent chemo tx, however given immunosuppresion status, recommend continued hospitalization and abx for staph coverage. Awaiting port culture results; if consistent w/ prior blood cx's, will require port removal and abx coverage. Plan: #Staph Bacteremia - Port + for GP cocci in clusters. F/u sensitivities - f/u peripheral blood cultures - Continue Vanc 1g BID for staph coverage - Monitor for infectious symptoms - Trend WBC, fever curve - Do not recommend discharge until port culture speciates. If matches Blood cx' s organism, will require staph coverage and port exchange Dereck Montoya MD, PGY1 Plan discussed with attending, Dr. Duckworth Dispo: We will continue to follow the patient. Thank you for this consultative opportunity. Problem List - Problems (1) Lung cancer Code(s): C34.90 - MALIGNANT NEOPLASM OF UNSP PART OF UNSP BRONCHUS OR LUNG Qualifiers: Laterality: right Visit type - Emergency Visit Emergency Visit: No - New Patient This patient is new to me today: No - Critical Care Critical Care patient: No
[2017-05-20] MEDS ORDERED: PT OWN MED DRAWER 7, Y5N ONE (09:27)
[2017-05-20] MEDS: ALPRAZolam 0.25 MG TABLET PO PRN ×2 (09:31→22:39)
[2017-05-20] MEDS: DEXAMETHASONE 0.5 MG TABLET PO SCH (09:31)
[2017-05-20] MEDS: PANTOPRAZOLE 20 MG TABLET (FP) PO SCH ×2 (09:31→21:02)
[2017-05-20] MEDS: FOLIC ACID 1 MG TABLET (FP) PO SCH (09:31)
[2017-05-20] MEDS: MAGNESIUM OXIDE 400 MG TABLET (FP) PO SCH ×2 (09:31→21:02)
--- NOTE | 2017-05-20 13:30 | PN ---
Progress Note, Physician History of Present Illness: f/u for bactermia in a pt with mNSCLC - Current Medication List Current Medications: Active Medications Acetaminophen (Tylenol -) 325 mg PO Q6H PRN PRN Reason: PAIN Last Admin: 05/20/17 12:18 Dose: 325 mg Alprazolam (Xanax -) 0.5 mg PO TID PRN PRN Reason: ANXIETY Last Admin: 05/20/17 09:31 Dose: 0.5 mg Dexamethasone (Decadron -) 0.5 mg PO DAILY [facility] Last Admin: 05/20/17 09:31 Dose: 0.5 mg Folic Acid (Folic Acid -) 1 mg PO DAILY [facility] Last Admin: 05/20/17 09:31 Dose: 1 mg Dextrose/Sodium Chloride (D5-1/2ns -) 1,000 mls @ 75 mls/hr IV ASDIR [facility] Last Admin: 05/20/17 09:32 Dose: Not Given Vancomycin HCl (Vancomycin (Pre-Docked)) 250 mls @ 250 mls/hr IVPB BID@0200, 1400 [facility] PRN Reason: Protocol Last Admin: 05/20/17 01:26 Dose: 250 mls/hr Levothyroxine Sodium (Synthroid -) 150 mcg PO DAILY@0700 [facility] Last Admin: 05/20/17 06:21 Dose: 150 mcg Magnesium Oxide (Mag-Ox -) 400 mg PO BID [facility] Last Admin: 05/20/17 09:31 Dose: 400 mg Oxycodone HCl (Roxicodone -) 10 mg PO Q6H PRN PRN Reason: PAIN Last Admin: 05/20/17 12:18 Dose: 10 mg Pantoprazole Sodium (Protonix -) 20 mg PO BID [facility] Last Admin: 05/20/17 09:31 Dose: 20 mg - Objective Vital Signs: Vital Signs Temperature 98.0 F 05/20/17 09:30 Pulse Rate 93 H 05/20/17 09:30 Respiratory Rate 18 05/20/17 09:30 Blood Pressure 103/73 05/20/17 09:30 O2 Sat by Pulse Oximetry (%) 97 05/20/17 09:31 Constitutional: Yes: No Distress, Cachectic HENT: Yes: Atraumatic, Normocephalic Neck: Yes: Supple. No: Lymphadenopathy Cardiovascular: Yes: Regular Rate and Rhythm Respiratory: Yes: Regular, CTA Bilaterally Gastrointestinal: Yes: Normal Bowel Sounds Edema: No Labs: CBC, BMP 05/20/17 06:00 05/20/17 06:00 Problem List - Problems (1) Positive blood cultures Code(s): R78.81 - BACTEREMIA (2) Primary lung adenocarcinoma Code(s): C34.90 - MALIGNANT NEOPLASM OF UNSP PART OF UNSP BRONCHUS OR LUNG Qualifiers: Laterality: unspecified laterality Qualified Code(s): C34.90 - Malignant neoplasm of unspecified part of unspecified bronchus or lung (3) Brain metastases Code(s): C79.31 - SECONDARY MALIGNANT NEOPLASM OF BRAIN (4) Anemia Code(s): D64.9 - ANEMIA, UNSPECIFIED Qualifiers: Bone marrow failure anemia type: pancytopenia, antineoplastic chemotherapy- induced (5) Hypokalemia Code(s): E87.6 - HYPOKALEMIA (6) Thrombocytopenia Code(s): D69.6 - THROMBOCYTOPENIA, UNSPECIFIED Assessment/Plan is a patient with mNSCLC (adeno) , WATER TESTER mets s/p Gamma Knife, presently on Carbo/Alimta followed by Alimta maintenance. Positive Blood cultures: -Staph Epi noted on 05/15 in both the blood culture bottles -repeat blood cultures from both the periphery and port were done .Periphery with no growth but port with positive GPC , awaiting further results. -ID consult appreciated. -On Vanc -TTE Anemia/Thrombocytopenia: -Chemo induced,the chance of it going further down is likely high deepthi in the setting of an active infection. -7.2 today, 2U prbc ordered . WATER TESTER mets: -pt on Dex of 0.5mg daily HypoK: -repletion today mNSCLC: -OP follow-up for his continued treatment.
[2017-05-20] MEDS ORDERED: POTASSIUM CHLORIDE TABS 20 MEQ TABLET.ER (FP) PO ONE (13:39)
--- NOTE | 2017-05-20 14:07 | PN ---
Teaching Attending Note Name of Resident: Dereck Montoya ATTENDING PHYSICIAN STATEMENT I saw and evaluated the patient. I reviewed the resident's note and discussed the case with the resident. I agree with the resident's findings and plan as documented. SUBJECTIVE: doing well no complaints OBJECTIVE: Vital Signs Period Temp Pulse Resp BP Sys/Brandon Pulse Ox Last 24 Hr 98 F-99.2 F 79-93 18-20 103-135/66-78 95-97 cor-rrr lungs clear abd soft,nt ext no edema Microbiology 05/19/17 10:20 Blood - Jackie Cath Blood Culture - Preliminary Pending Organism 05/18/17 20:38 Blood - Peripheral Venous Blood Culture - Preliminary NO GROWTH OBTAINED AFTER 24 HOURS, INCUBATION TO CONTINUE FOR 4 DAYS. 05/18/17 20:27 Blood - Peripheral Venous Blood Culture - Preliminary NO GROWTH OBTAINED AFTER 24 HOURS, INCUBATION TO CONTINUE FOR 4 DAYS. Current Medications Acetaminophen (Tylenol -) 325 mg PO Q6H PRN PRN Reason: PAIN Last Admin: 05/20/17 12:18 Dose: 325 mg Alprazolam (Xanax -) 0.5 mg PO TID PRN PRN Reason: ANXIETY Last Admin: 05/20/17 09:31 Dose: 0.5 mg Dexamethasone (Decadron -) 0.5 mg PO DAILY [facility] Last Admin: 05/20/17 09:31 Dose: 0.5 mg Folic Acid (Folic Acid -) 1 mg PO DAILY [facility] Last Admin: 05/20/17 09:31 Dose: 1 mg Dextrose/Sodium Chloride (D5-1/2ns -) 1,000 mls @ 75 mls/hr IV ASDIR [facility] Last Admin: 05/20/17 09:32 Dose: Not Given Vancomycin HCl (Vancomycin (Pre-Docked)) 250 mls @ 250 mls/hr IVPB BID@0200, 1400 [facility] PRN Reason: Protocol Last Admin: 05/20/17 01:26 Dose: 250 mls/hr Levothyroxine Sodium (Synthroid -) 150 mcg PO DAILY@0700 [facility] Last Admin: 05/20/17 06:21 Dose: 150 mcg Magnesium Oxide (Mag-Ox -) 400 mg PO BID [facility] Last Admin: 05/20/17 09:31 Dose: 400 mg Oxycodone HCl (Roxicodone -) 10 mg PO Q6H PRN PRN Reason: PAIN Last Admin: 05/20/17 12:18 Dose: 10 mg Pantoprazole Sodium (Protonix -) 20 mg PO BID [facility] Last Admin: 05/20/17 09:31 Dose: 20 mg ASSESSMENT AND PLAN: gram positive bacteremia continue vancomycin f/u cultures echo history of metastatic lung cancer - s/p chemo, on decadron Problem List - Problems (1) Positive blood cultures Code(s): R78.81 - BACTEREMIA (2) Metastatic adenocarcinoma Code(s): C79.9 - SECONDARY MALIGNANT NEOPLASM OF UNSPECIFIED SITE
--- NOTE | 2017-05-20 22:31 | PN ---
Progress Note, Physician - Current Medication List Current Medications: Active Medications Acetaminophen (Tylenol -) 325 mg PO Q6H PRN PRN Reason: PAIN Last Admin: 05/20/17 18:19 Dose: 325 mg Alprazolam (Xanax -) 0.5 mg PO TID PRN PRN Reason: ANXIETY Last Admin: 05/20/17 09:31 Dose: 0.5 mg Dexamethasone (Decadron -) 0.5 mg PO DAILY [facility] Last Admin: 05/20/17 09:31 Dose: 0.5 mg Folic Acid (Folic Acid -) 1 mg PO DAILY [facility] Last Admin: 05/20/17 09:31 Dose: 1 mg Dextrose/Sodium Chloride (D5-1/2ns -) 1,000 mls @ 75 mls/hr IV ASDIR [facility] Last Admin: 05/20/17 09:32 Dose: Not Given Vancomycin HCl (Vancomycin (Pre-Docked)) 250 mls @ 250 mls/hr IVPB BID@0200, 1400 [facility] PRN Reason: Protocol Last Admin: 05/20/17 14:12 Dose: 250 mls/hr Levothyroxine Sodium (Synthroid -) 150 mcg PO DAILY@0700 [facility] Last Admin: 05/20/17 06:21 Dose: 150 mcg Magnesium Oxide (Mag-Ox -) 400 mg PO BID [facility] Last Admin: 05/20/17 21:02 Dose: 400 mg Oxycodone HCl (Roxicodone -) 10 mg PO Q6H PRN PRN Reason: PAIN Last Admin: 05/20/17 18:19 Dose: 10 mg Pantoprazole Sodium (Protonix -) 20 mg PO BID [facility] Last Admin: 05/20/17 21:02 Dose: 20 mg - Objective Vital Signs: Vital Signs Temperature 98 F 05/20/17 18:11 Pulse Rate 87 05/20/17 18:11 Respiratory Rate 18 05/20/17 18:11 Blood Pressure 124/74 05/20/17 18:11 O2 Sat by Pulse Oximetry (%) 97 05/20/17 09:31 Labs: CBC, BMP 05/20/17 06:00 05/20/17 06:00
[2017-05-21] MEDS: VANCOMYCIN 1 GRAM (PRE-DOCKED) 250 ML IVPB SCH ×2 (01:07→13:32)
[2017-05-21] MEDS: DEXTROSE 5%-0.45% SALINE 1,000 ML IV SCH (03:14)
[2017-05-21] MEDS: LEVOTHYROXINE NA 150 MCG TABLET PO SCH (06:15)
--- NOTE | 2017-05-21 07:21 | PN ---
Physical Exam: SUBJECTIVE: Patient to be seen and examined - Elevated WBC on steroids. Afebrile - Portacath blood culture growth w/ Coagulase neg staph. Blood cx's + for coag neg staph - No major complaints or overnight events - Echo negative OBJECTIVE: Vital Signs Period Temp Pulse Resp BP Sys/Brandon Pulse Ox Last 24 Hr 97.8 F-98.5 F 87-100 18-20 103-124/73-79 97 GENERAL: Awake, alert, and fully oriented, in no acute distress. Pleasant, well- nourished middle aged man HEAD: Normal with no signs of trauma EYES: sclera anicteric, conjunctiva clear. No lid lag. LUNGS: Breath sounds equal, clear to auscultation bilaterally. No wheezes, and no crackles. No accessory muscle use. HEART: Regular rate and rhythm, normal S1 and S2 without murmur, rub or gallop. No displaced PMI. Chemo port present on R upper chest. No surrounding erythema, induration or pain on palpation. ABDOMEN: Soft, nontender, not distended, normoactive bowel sounds, no guarding, no rebound, no masses. No hepatomegaly or splenomegaly. NEUROLOGICAL: Cranial nerves II-XII intact. Normal speech. gait not evaluated. SKIN: Warm, dry, normal turgor. Diffuse skin dryness on upper chest and back. Laboratory Results - last 24 hr CBC, BMP 05/20/17 06:00 05/20/17 06:00 05/20/17 05/20/17 05/20/17 06:00 06:00 06:00 WBC 14.9 H D RBC 2.68 L Hgb 7.2 L Hct 22.5 L MCV 84.2 MCH 26.8 MCHC 31.9 L RDW 15.8 Plt Count 56 L MPV 8.2 Sodium 137 Potassium 3.1 L Chloride 97 L Carbon Dioxide 32 Anion Gap 8 BUN 10 D Creatinine 0.8 Creat Clearance w eGFR > 60 Random Glucose 88 Calcium 8.3 L Total Bilirubin 0.5 AST 16 ALT 17 Alkaline Phosphatase 115 Total Protein 5.8 L Albumin 2.8 L Blood Type O POSITIVE Antibody Screen Negative Crossmatch See Detail Microbiology 05/18/17 20:27 Blood - Peripheral Venous Blood Culture - Preliminary NO GROWTH OBTAINED AFTER 48 HOURS, INCUBATION TO CONTINUE FOR 3 DAYS. 05/19/17 10:20 Blood - Jackie Cath Blood Culture - Preliminary Pending Organism 05/18/17 20:38 Blood - Peripheral Venous Blood Culture - Preliminary NO GROWTH OBTAINED AFTER 24 HOURS, INCUBATION TO CONTINUE FOR 4 DAYS. ECHO (05/21): No notable pathology. No vegetations or valvulopathy. Unremarkable Active Medications Generic Name Dose Route Start Last Admin Trade Name Freq PRN Reason Stop Dose Admin Acetaminophen 325 mg 05/19/17 02:25 05/20/17 23:41 Tylenol - PO 325 mg Q6H PRN Administration PAIN Alprazolam 0.5 mg 05/19/17 22:23 05/20/17 22:39 Xanax - PO 0.5 mg TID PRN Administration ANXIETY Dexamethasone 0.5 mg 05/19/17 10:00 05/20/17 09:31 Decadron - PO 0.5 mg DAILY [facility] Administration Folic Acid 1 mg 05/19/17 10:00 05/20/17 09:31 Folic Acid - PO 1 mg DAILY [facility] Administration Dextrose/Sodium Chloride 1,000 mls @ 75 mls/hr 05/19/17 02:15 05/21/17 03:14 D5-1/2ns - IV Not Given ASDIR [facility] Vancomycin HCl 250 mls @ 250 mls/hr 05/19/17 14:00 05/21/17 01:07 Vancomycin (Pre-Docked) IVPB 250 mls/hr BID@0200,1400 [facility] Administration Protocol Levothyroxine Sodium 150 mcg 05/19/17 07:00 05/21/17 06:15 Synthroid - PO 150 mcg DAILY@0700 [facility] Administration Magnesium Oxide 400 mg 05/19/17 10:00 05/20/17 21:02 Mag-Ox - PO 400 mg BID [facility] Administration Oxycodone HCl 10 mg 05/19/17 02:25 05/20/17 23:39 Roxicodone - PO 10 mg Q6H PRN Administration PAIN Pantoprazole Sodium 20 mg 05/19/17 10:00 05/20/17 21:02 Protonix - PO 20 mg BID MARC Administration ASSESSMENT/PLAN: Assessment: 51 yo w/ pmh of lung ca (receiving chemotx s/p 04/30 treatments), hypothyroidism who was referred to the ED for positive blood cultures for staph following recent chemo treatment one week ago. Pt afebrile with no current infectious symptoms, w/ an elevated WBC count in the setting of chronic steroid use. Chemo port, blood culture positive for coag neg staph. Will likely require port removal w/ placement of PICC by IR for further chemo tx. Echo unremarkable. Plan to continue vancomycin coverage for now. Plan: #Staph Bacteremia - Portacath and blood culture + coag neg staph. - Repeat port, blood cultures - Continue Vanc 1g BID for staph coverage - Monitor for infectious symptoms - Trend WBC, fever curve - Will likely require port removal and PICC placement for further chemo tx. Remain inpatient until Wednesday Dereck Montoya MD, PGY1 Plan discussed with attending, Dr. Duckworth Dispo: We will continue to follow the patient. Thank you for this consultative opportunity. Problem List - Problems (1) Lung cancer Code(s): C34.90 - MALIGNANT NEOPLASM OF UNSP PART OF UNSP BRONCHUS OR LUNG Qualifiers: Laterality: right Visit type - Emergency Visit Emergency Visit: No - New Patient This patient is new to me today: No - Critical Care Critical Care patient: No
[2017-05-21] MEDS: oxyCODONE HCL 5 MG TABLET PO PRN ×3 (07:48→20:22)
[2017-05-21] MEDS: ACETAMINOPHEN 325 MG TABLET (FP) PO PRN ×3 (07:58→20:21)
[2017-05-21] MEDS: MAGNESIUM OXIDE 400 MG TABLET (FP) PO SCH ×2 (09:46→22:15)
[2017-05-21] MEDS: PANTOPRAZOLE 20 MG TABLET (FP) PO SCH ×2 (09:46→22:16)
[2017-05-21] MEDS: FOLIC ACID 1 MG TABLET (FP) PO SCH (09:46)
[2017-05-21] MEDS: DEXAMETHASONE 0.5 MG TABLET PO SCH (09:46)
--- NOTE | 2017-05-21 10:48 | PN ---
Progress Note (short form) - Note Progress Note: Patient seen and examined Offers no complaints of shortness of breath, dyspnea, fevers, rigors. Continues on Vancomycin Bacteremic with Coagulase negative Staph Awaiting port cultures S/P 2 units of packed cells Current Medications Generic Name Dose Route Start Last Admin Trade Name Freq PRN Reason Stop Dose Admin Acetaminophen 325 mg 05/19/17 02:25 05/21/17 07:58 Tylenol - PO 325 mg Q6H PRN Administration PAIN Alprazolam 0.5 mg 05/19/17 22:23 05/20/17 22:39 Xanax - PO 0.5 mg TID PRN Administration ANXIETY Dexamethasone 0.5 mg 05/19/17 10:00 05/21/17 09:46 Decadron - PO 0.5 mg DAILY [facility] Administration Folic Acid 1 mg 05/19/17 10:00 05/21/17 09:46 Folic Acid - PO 1 mg DAILY [facility] Administration Dextrose/Sodium Chloride 1,000 mls @ 75 mls/hr 05/19/17 02:15 05/21/17 03:14 D5-1/2ns - IV Not Given ASDIR [facility] Vancomycin HCl 250 mls @ 250 mls/hr 05/19/17 14:00 05/21/17 01:07 Vancomycin (Pre-Docked) IVPB 250 mls/hr BID@0200,1400 [facility] Administration Protocol Levothyroxine Sodium 150 mcg 05/19/17 07:00 05/21/17 06:15 Synthroid - PO 150 mcg DAILY@0700 [facility] Administration Magnesium Oxide 400 mg 05/19/17 10:00 05/21/17 09:46 Mag-Ox - PO 400 mg BID [facility] Administration Oxycodone HCl 10 mg 05/19/17 02:25 05/21/17 07:48 Roxicodone - PO 10 mg Q6H PRN Administration PAIN Pantoprazole Sodium 20 mg 05/19/17 10:00 05/21/17 09:46 Protonix - PO 20 mg BID [facility] Administration Last Vital Signs Temp Pulse Resp BP Pulse Ox 98 F 87 18 124/74 97 05/20/17 18:11 05/20/17 18:11 05/20/17 18:11 05/20/17 18:11 05/20/17 09:31 HEENT: SILVINO, EOM Intact Oropharynx: No thrush, No mucositis Cor: RSR, No murmurs, No gallops Lungs: bronchial breath sounds, diminished Abd: Soft, Normal bowel sounds, No organomegaly Ext:No significant edema, clubbing Skin: No rashes, Integument intact CBC, BMP 05/20/17 06:00 05/20/17 06:00 Problem List - Problems (1) Positive blood cultures Assessment/Plan: Coagulase negative staph in blood - awaiting port cultures Code(s): R78.81 - BACTEREMIA (2) Primary lung adenocarcinoma Assessment/Plan: On Alimta maintenance . S/P carboplatinum /Alimta x 4 and RT.. S/P gamma knife for [employer] mets Code(s): C34.90 - MALIGNANT NEOPLASM OF UNSP PART OF UNSP BRONCHUS OR LUNG Qualifiers: Laterality: unspecified laterality Qualified Code(s): C34.90 - Malignant neoplasm of unspecified part of unspecified bronchus or lung (3) Anemia Assessment/Plan: Likely multifactorial Chronic Disease and chemotherapy induced Code(s): D64.9 - ANEMIA, UNSPECIFIED Qualifiers: Bone marrow failure anemia type: pancytopenia, antineoplastic chemotherapy- induced (4) Brain metastases Assessment/Plan: S/P gamma Knife with improvement . Code(s): C79.31 - SECONDARY MALIGNANT NEOPLASM OF BRAIN
--- NOTE | 2017-05-21 15:17 | PN ---
Teaching Attending Note Name of Resident: Dereck Montoya ATTENDING PHYSICIAN STATEMENT I saw and evaluated the patient. I reviewed the resident's note and discussed the case with the resident. I agree with the resident's findings and plan as documented. SUBJECTIVE: no complaints OBJECTIVE: Vital Signs Period Temp Pulse Resp BP Sys/Brandon Pulse Ox Last 24 Hr 97.8 F-98.4 F 82-100 18-20 124-128/74-76 98 cor-rrr llungs cllear abd soft,nt ext no edema CBC, BMP 05/20/17 06:00 05/20/17 06:00 Microbiology 05/18/17 20:38 Blood - Peripheral Venous Blood Culture - Preliminary Staphylococcus Coagulase Neg 05/19/17 10:20 Blood - Jackie Cath Blood Culture - Preliminary Staphylococcus Coagulase Neg 05/18/17 20:27 Blood - Peripheral Venous Blood Culture - Preliminary NO GROWTH OBTAINED AFTER 48 HOURS, INCUBATION TO CONTINUE FOR 3 DAYS. ASSESSMENT AND PLAN: d/w patient d/w Dr Alicea port and peripheral blood cultures have GARMENT MENDER- if this matches prior culture drawn on 05/16 (staph epi) will need port out he states Dr Pete put it in repeat blood cultures vancomycin trough in am Problem List - Problems (1) Positive blood cultures Code(s): R78.81 - BACTEREMIA (2) Metastatic adenocarcinoma Code(s): C79.9 - SECONDARY MALIGNANT NEOPLASM OF UNSPECIFIED SITE
[2017-05-21] MEDS: ALPRAZolam 0.25 MG TABLET PO PRN (22:15)
--- NOTE | 2017-05-21 23:32 | PN ---
Progress Note, Physician - Current Medication List Current Medications: Active Medications Acetaminophen (Tylenol -) 325 mg PO Q6H PRN PRN Reason: PAIN Last Admin: 05/21/17 20:21 Dose: 325 mg Alprazolam (Xanax -) 0.5 mg PO TID PRN PRN Reason: ANXIETY Last Admin: 05/21/17 22:15 Dose: 0.5 mg Dexamethasone (Decadron -) 0.5 mg PO DAILY [facility] Last Admin: 05/21/17 09:46 Dose: 0.5 mg Folic Acid (Folic Acid -) 1 mg PO DAILY [facility] Last Admin: 05/21/17 09:46 Dose: 1 mg Dextrose/Sodium Chloride (D5-1/2ns -) 1,000 mls @ 75 mls/hr IV ASDIR [facility] Last Admin: 05/21/17 03:14 Dose: Not Given Vancomycin HCl (Vancomycin (Pre-Docked)) 250 mls @ 250 mls/hr IVPB BID@0200, 1400 [facility] PRN Reason: Protocol Last Admin: 05/21/17 13:32 Dose: 250 mls/hr Levothyroxine Sodium (Synthroid -) 150 mcg PO DAILY@0700 [facility] Last Admin: 05/21/17 06:15 Dose: 150 mcg Magnesium Oxide (Mag-Ox -) 400 mg PO BID [facility] Last Admin: 05/21/17 22:15 Dose: 400 mg Oxycodone HCl (Roxicodone -) 10 mg PO Q6H PRN PRN Reason: PAIN Last Admin: 05/21/17 20:22 Dose: 10 mg Pantoprazole Sodium (Protonix -) 20 mg PO BID [facility] Last Admin: 05/21/17 22:16 Dose: 20 mg - Objective Vital Signs: Vital Signs Temperature 98.9 F 05/21/17 18:00 Pulse Rate 92 H 05/21/17 18:00 Respiratory Rate 18 05/21/17 18:00 Blood Pressure 120/74 05/21/17 18:00 O2 Sat by Pulse Oximetry (%) 98 05/21/17 09:00 Labs: CBC, BMP 05/20/17 06:00 05/20/17 06:00
[2017-05-22] MEDS: oxyCODONE HCL 5 MG TABLET PO PRN ×5 (01:04→20:20)
[2017-05-22] MEDS: VANCOMYCIN 1 GRAM (PRE-DOCKED) 250 ML IVPB SCH ×2 (01:04→14:48)
[2017-05-22] MEDS: ACETAMINOPHEN 325 MG TABLET (FP) PO PRN ×5 (01:08→20:23)
[2017-05-22] MEDS: DEXTROSE 5%-0.45% SALINE 1,000 ML IV SCH (02:30)
[2017-05-22] MEDS: LEVOTHYROXINE NA 150 MCG TABLET PO SCH (06:02)
[2017-05-22] MEDS: DEXAMETHASONE 0.5 MG TABLET PO SCH (10:09)
[2017-05-22] MEDS: PANTOPRAZOLE 20 MG TABLET (FP) PO SCH ×2 (10:09→21:23)
[2017-05-22] MEDS: MAGNESIUM OXIDE 400 MG TABLET (FP) PO SCH ×2 (10:09→21:23)
[2017-05-22] MEDS: FOLIC ACID 1 MG TABLET (FP) PO SCH (10:09)
--- NOTE | 2017-05-22 11:13 | PN ---
Progress Note (short form) - Note Progress Note: feels well no complaints Vital Signs Period Temp Pulse Resp BP Sys/Brandon Pulse Ox Last 24 Hr 98 F-98.9 F 77-92 18-20 120-135/74-97 97 cor-rrr llungs clear abd soft,nt ext no edema +port CBC, BMP 05/20/17 06:00 05/20/17 06:00 Microbiology 05/19/17 10:20 Blood - Jackie Cath Blood Culture - Final Staphylococcus Epidermidis 05/18/17 20:38 Blood - Peripheral Venous Blood Culture - Final Staphylococcus Epidermidis 05/18/17 20:27 Blood - Peripheral Venous Blood Culture - Preliminary NO GROWTH OBTAINED AFTER 72 HOURS, INCUBATION TO CONTINUE FOR 2 DAYS. blood cultures 05/16 staph epi a/p staph epi bacteremia (05/16, 05/18 with postive port culture as well) suspect will need port out consule dr pitts placed repeat blood cultures sent yesterday vancomycin to continue trough ordered for today metastatic lung cancer Problem List - Problems (1) Positive blood cultures Code(s): R78.81 - BACTEREMIA (2) Metastatic adenocarcinoma Code(s): C79.9 - SECONDARY MALIGNANT NEOPLASM OF UNSPECIFIED SITE
--- NOTE | 2017-05-22 15:41 | PN ---
Progress Note (short form) - Note Progress Note: Oncology follow-up note S- Patient in good spirits when visited today. He is very eager to leave the hospital. he is aware however that he will need to stay for the portacath to be removed on Wednesday Last Vital Signs Temp Pulse Resp BP Pulse Ox 99.0 F 80 20 125/78 98 05/22/17 14:15 05/22/17 14:15 05/22/17 14:15 05/22/17 14:15 05/22/17 09:00 AOx3, alert, awake CTA (BL), S1S2 wnl Soft abdomen No c/c/e CBC, BMP 05/20/17 06:00 05/20/17 06:00 Current Medications Generic Name Dose Route Start Last Admin Trade Name Freq PRN Reason Stop Dose Admin Acetaminophen 650 mg 05/22/17 00:45 05/22/17 11:35 Tylenol - PO 650 mg Q4H PRN Administration PAIN Alprazolam 0.5 mg 05/22/17 13:18 Xanax - PO TID PRN ANXIETY Dexamethasone 0.5 mg 05/19/17 10:00 05/22/17 10:09 Decadron - PO 0.5 mg DAILY [facility] Administration Folic Acid 1 mg 05/19/17 10:00 05/22/17 10:09 Folic Acid - PO 1 mg DAILY [facility] Administration Dextrose/Sodium Chloride 1,000 mls @ 75 mls/hr 05/19/17 02:15 05/22/17 02:30 D5-1/2ns - IV Not Given ASDIR [facility] Vancomycin HCl 1,250 mg/ 250 mls @ 166.667 mls/hr 05/23/17 10:00 Dextrose IVPB DAILY [facility] Protocol Levothyroxine Sodium 150 mcg 05/19/17 07:00 05/22/17 06:02 Synthroid - PO 150 mcg DAILY@0700 [facility] Administration Magnesium Oxide 400 mg 05/19/17 10:00 05/22/17 10:09 Mag-Ox - PO 400 mg BID [facility] Administration Oxycodone HCl 10 mg 05/22/17 00:45 05/22/17 11:37 Roxicodone - PO 10 mg Q4H PRN Administration PAIN Pantoprazole Sodium 20 mg 05/19/17 10:00 05/22/17 10:09 Protonix - PO 20 mg BID [facility] Administration A/P : 51 y/o M with metastatic NSCLC on carbo /alimta + alimta maintenance now admitted with staph epi sepsis - on antibiotics- vancomycin per ID, getting adjusted per trough levels - will need portacath removal -anemia of chronic disease, transfuse for Hgb <7 and plt count < 20k -will continue to follow while inpatient
--- NOTE | 2017-05-22 16:49 | PN ---
Progress Note, Physician - Current Medication List Current Medications: Active Medications Acetaminophen (Tylenol -) 650 mg PO Q4H PRN PRN Reason: PAIN Last Admin: 05/22/17 16:11 Dose: 650 mg Alprazolam (Xanax -) 0.5 mg PO TID PRN PRN Reason: ANXIETY Dexamethasone (Decadron -) 0.5 mg PO DAILY [facility] Last Admin: 05/22/17 10:09 Dose: 0.5 mg Folic Acid (Folic Acid -) 1 mg PO DAILY [facility] Last Admin: 05/22/17 10:09 Dose: 1 mg Dextrose/Sodium Chloride (D5-1/2ns -) 1,000 mls @ 75 mls/hr IV ASDIR [facility] Last Admin: 05/22/17 02:30 Dose: Not Given Vancomycin HCl 1,250 mg/ (Dextrose) 250 mls @ 166.667 mls/hr IVPB DAILY [facility] PRN Reason: Protocol Levothyroxine Sodium (Synthroid -) 150 mcg PO DAILY@0700 [facility] Last Admin: 05/22/17 06:02 Dose: 150 mcg Magnesium Oxide (Mag-Ox -) 400 mg PO BID [facility] Last Admin: 05/22/17 10:09 Dose: 400 mg Oxycodone HCl (Roxicodone -) 10 mg PO Q4H PRN PRN Reason: PAIN Last Admin: 05/22/17 16:10 Dose: 10 mg Pantoprazole Sodium (Protonix -) 20 mg PO BID [facility] Last Admin: 05/22/17 10:09 Dose: 20 mg - Objective Vital Signs: Vital Signs Temperature 99.0 F 05/22/17 14:15 Pulse Rate 80 05/22/17 14:15 Respiratory Rate 20 05/22/17 14:15 Blood Pressure 125/78 05/22/17 14:15 O2 Sat by Pulse Oximetry (%) 98 05/22/17 09:00 Labs: CBC, BMP 05/20/17 06:00 05/20/17 06:00
[2017-05-22 17:38] LABS: BASOPHIL 0.1 % (0-2.0); EOSINOPHIL 1.2 % (0-4.5); MCH 26.8 pg (25.7-33.7); MCHC 32.1 g/dl (32.0-35.9); MEAN CELL VOLUME 83.5 fl (80-96); MEAN PLT VOLUME 8.4 fl (7.5-11.1); PLATELET COUNT 58 K/MM3 (134-434); WHITE BLOOD COUNT 13.8 K/mm3 (4.0-10.0)
[2017-05-22 18:16] LABS: ANION GAP 7 (8-16); BILIRUBIN,TOTAL 0.3 mg/dL (0.2-1.0); CALCIUM 8.9 mg/dL (8.5-10.1); CO2 33 mmol/L (21-32); CREATININE 1.3 mg/dL (0.7-1.3); GLUCOSE,RANDOM 90 mg/dL (74-106); SGOT/AST 20 U/L (15-37); SGPT/ALT 17 U/L (12-78); TOT PROT 6.4 g/dl (6.4-8.2)
[2017-05-22 18:17] LABS: ALK PHOS 127 U/L (45-117)
[2017-05-22] MEDS: ALPRAZolam 0.25 MG TABLET PO PRN (21:23)
[2017-05-23] MEDS: ACETAMINOPHEN 325 MG TABLET (FP) PO PRN ×6 (02:12→22:49)
[2017-05-23] MEDS: oxyCODONE HCL 5 MG TABLET PO PRN ×6 (02:13→22:49)
[2017-05-23] MEDS: DEXTROSE 5%-0.45% SALINE 1,000 ML IV SCH (06:20)
[2017-05-23] MEDS: LEVOTHYROXINE NA 150 MCG TABLET PO SCH (06:23)
[2017-05-23] MEDS: FOLIC ACID 1 MG TABLET (FP) PO SCH (09:22)
[2017-05-23] MEDS: DEXAMETHASONE 0.5 MG TABLET PO SCH (09:22)
[2017-05-23] MEDS: MAGNESIUM OXIDE 400 MG TABLET (FP) PO SCH ×2 (09:22→21:13)
[2017-05-23] MEDS: PANTOPRAZOLE 20 MG TABLET (FP) PO SCH ×2 (09:22→21:13)
[2017-05-23] MEDS: VANCOMYCIN 1,250 MG in DEXTROSE 5%-WATER - 250 ML IVPB SCH (11:27)
--- NOTE | 2017-05-23 11:44 | CONSULT ---
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 No: O2 Dependent Endocrine: Yes: Hypothyroidism. No: Diabetes Mellitus - Alcohol/Substance Use Hx Alcohol Use: Yes (CAN OF BEER A DAY) - Smoking History Smoking history: Current some day smoker Have you smoked in the past 12 months: No Aproximately how many cigarettes per day: 5 If you are a former smoker, when did you quit?: 1 wk ago - Social History History of Recent Travel: No Home Medications - Allergies Allergies/Adverse Reactions: Allergies Allergy/AdvReac Type Severity Reaction Status Date / Time No Known Allergies Allergy Verified 05/18/17 18:53 - Home Medications Home Medications: Ambulatory Orders Alprazolam [Xanax] 0.5 mg PO PRN 03/10/17 Folic Acid 1 mg PO DAILY 03/10/17 Levothyroxine [Synthroid -] 150 mcg PO DAILY 03/10/17 Magnesium Oxide 400 mg PO BID 03/10/17 Omeprazole 20 mg PO BID 03/10/17 Dexamethasone 0.5 mg PO DAILY 05/15/17 Nystatin Oral Suspension - [Nystatin Oral Susp 502042 Units/5 ML -] 5 ml PO PRN 05/15/17 Oxycodone HCl/Acetaminophen [Oxycodone-Acetaminophen 10-325] 1 each PO PRN 05/15 Physical Exam Vital Signs: Vital Signs Temperature 98.1 F 05/23/17 08:30 Pulse Rate 90 05/23/17 08:30 Respiratory Rate 20 05/23/17 08:30 Blood Pressure 117/77 05/23/17 08:30 O2 Sat by Pulse Oximetry (%) 98 05/22/17 09:00 Labs: CBC, BMP 05/22/17 17:15 05/22/17 17:15 Assessment/Plan VAscular Surgery Patient is a 51 year old male with significant medical hx of lung cancer s/p 04/30 treatments of chemotherapy (last treatment 05/12) who has been sent to the ED by Dr. Lord for positive blood cultures for staph. The patient was seen in the ED on 05/15/17 for low grade fever and discharged the following morning. He states that he received a phone call from Dr. Lord today for positive blood cultures and was referred to the ED. The patient does not offer any complaints at this time aside from his "usual aches and pains". He denies any fever, chills , nausea, vomiting, diarrhea, abdominal pain, chest pain, or shortness of breath. PMD: Jp Rolon MD Oncologist: Estrada Lord MD <La Nena Arce - Last Filed: 05/18/17 23:53> <Fay Noyola - Last Filed: 05/19/17 00:13> - General Chief Complaint: Revisit, Lab Variance Stated Complaint: DOCTOR SEND PT Time Seen by Provider: 05/18/17 19:38 Past History <La Nena Arce - Last Filed: 05/18/17 23:53> - Past Medical History Anemia: Yes Cancer: Yes (LUNG ADENOCARCINOMA,Starts Chemo ) Thyroid Disease: Yes - Surgical History Lung Surgery: No (lung biopsy) - Psycho/Social/Smoking Cessation Hx Anxiety: No Suicidal Ideation: No Smoking Status: Yes Smoking History: Current some day smoker Have you smoked in the past 12 months: No Number of Cigarettes Smoked Daily: 5 If you are a former smoker, when did you quit?: 1 wk ago Information on smoking cessation initiated: No 'Breaking Loose' booklet given: 11/09/16 Hx Alcohol Use: Yes (CAN OF BEER A DAY) Drug/Substance Use Hx: Yes (SOCIAL) Substance Use Type: None Hx Substance Use Treatment: No PE head - NC/At Lung - CTA Heart - RRR abd - soft,nt,nd ext warm, pink. Right chest port in place. A/P Port with bacteremia - staph epi. Will remove port in am. Tavo Hall DO
--- NOTE | 2017-05-23 19:13 | PN ---
Progress Note, Physician History of Present Illness: stable - Current Medication List Current Medications: Active Medications Acetaminophen (Tylenol -) 650 mg PO Q4H PRN PRN Reason: PAIN Last Admin: 05/23/17 18:13 Dose: 650 mg Alprazolam (Xanax -) 0.5 mg PO TID PRN PRN Reason: ANXIETY Last Admin: 05/22/17 21:23 Dose: 0.5 mg Dexamethasone (Decadron -) 0.5 mg PO DAILY [facility] Last Admin: 05/23/17 09:22 Dose: 0.5 mg Folic Acid (Folic Acid -) 1 mg PO DAILY [facility] Last Admin: 05/23/17 09:22 Dose: 1 mg Dextrose/Sodium Chloride (D5-1/2ns -) 1,000 mls @ 75 mls/hr IV ASDIR [facility] Last Admin: 05/23/17 06:20 Dose: Not Given Vancomycin HCl 1,250 mg/ (Dextrose) 250 mls @ 166.667 mls/hr IVPB DAILY [facility] PRN Reason: Protocol Last Admin: 05/23/17 11:27 Dose: 166.667 mls/hr Levothyroxine Sodium (Synthroid -) 150 mcg PO DAILY@0700 [facility] Last Admin: 05/23/17 06:23 Dose: 150 mcg Magnesium Oxide (Mag-Ox -) 400 mg PO BID [facility] Last Admin: 05/23/17 09:22 Dose: 400 mg Oxycodone HCl (Roxicodone -) 10 mg PO Q4H PRN PRN Reason: PAIN Last Admin: 05/23/17 18:12 Dose: 10 mg Pantoprazole Sodium (Protonix -) 20 mg PO BID [facility] Last Admin: 05/23/17 09:22 Dose: 20 mg - Objective Vital Signs: Vital Signs Temperature 98.6 F 05/23/17 17:26 Pulse Rate 83 05/23/17 17:26 Respiratory Rate 18 05/23/17 17:26 Blood Pressure 116/78 05/23/17 17:26 O2 Sat by Pulse Oximetry (%) 96 05/23/17 09:00 Constitutional: Yes: No Distress HENT: Yes: Atraumatic Neck: Yes: Supple Cardiovascular: Yes: Regular Rate and Rhythm Respiratory: Yes: CTA Bilaterally Gastrointestinal: Yes: Normal Bowel Sounds Extremities: Yes: WNL Labs: CBC, BMP 05/22/17 17:15 05/22/17 17:15 Problem List - Problems (1) Positive blood cultures Assessment/Plan: ON IVABX CXS NOTED Code(s): R78.81 - BACTEREMIA (2) Primary lung adenocarcinoma Assessment/Plan: DR TAVARES ON BOARD ON MEDS Code(s): C34.90 - MALIGNANT NEOPLASM OF UNSP PART OF UNSP BRONCHUS OR LUNG Qualifiers: Laterality: unspecified laterality Qualified Code(s): C34.90 - Malignant neoplasm of unspecified part of unspecified bronchus or lung (3) Brain metastases Code(s): C79.31 - SECONDARY MALIGNANT NEOPLASM OF BRAIN (4) COPD (chronic obstructive pulmonary disease) Code(s): J44.9 - CHRONIC OBSTRUCTIVE PULMONARY DISEASE, UNSPECIFIED Qualifiers : COPD type: unspecified COPD Qualified Code(s): J44.9 - Chronic obstructive pulmonary disease, unspecified Assessment/Plan COVERING FOR DR CHEW
[2017-05-23] MEDS: ALPRAZolam 0.25 MG TABLET PO PRN (22:50)
[2017-05-24] MEDS: DEXTROSE 5%-0.45% SALINE 1,000 ML IV SCH (03:56)
[2017-05-24] MEDS: oxyCODONE HCL 5 MG TABLET PO PRN ×5 (03:59→21:02)
[2017-05-24] MEDS: ACETAMINOPHEN 325 MG TABLET (FP) PO PRN ×3 (03:59→21:05)
[2017-05-24] MEDS: LEVOTHYROXINE NA 150 MCG TABLET PO SCH (06:02)
[2017-05-24] MEDS ORDERED: PT OWN MED DRAWER 7, Y5N ONE ×2 (08:23→11:18)
[2017-05-24 09:19] LABS: MCH 27.3 pg (25.7-33.7); MCHC 32.5 g/dl (32.0-35.9); MEAN PLT VOLUME 8.1 fl (7.5-11.1); PLATELET COUNT 63 K/MM3 (134-434); RDW 16.2 % (11.9-15.9); WHITE BLOOD COUNT 10.4 K/mm3 (4.0-10.0)
[2017-05-24 09:30] LABS: INR 1.12 (0.82-1.09); PROTHROMBIN TIME (PATIENT) 12.3 SEC (9.98-11.88)
[2017-05-24 09:33] LABS: ACTIVATED PTT 31.5 SECONDS (26.9-34.4)
[2017-05-24] MEDS ORDERED: ceFAZolin SODIUM 1 GM VIAL IVPB ONE (09:36)
[2017-05-24] MEDS ORDERED: LIDOCAINE HCL 1%, 10 MG/ML (20ML VIAL) IJ ONE (09:49)
[2017-05-24 09:50] LABS: ALBUMIN 3.2 g/dl (3.4-5.0); ALK PHOS 125 U/L (45-117); ANION GAP 6 (8-16); BILIRUBIN,TOTAL 0.5 mg/dL (0.2-1.0); CALCIUM 9.4 mg/dL (8.5-10.1); CO2 32 mmol/L (21-32); GLUCOSE,RANDOM 87 mg/dL (74-106); SGOT/AST 27 U/L (15-37); SGPT/ALT 22 U/L (12-78); TOT PROT 6.9 g/dl (6.4-8.2)
--- NOTE | 2017-05-24 10:04 | OP ---
Operative Note - Note: Operative Date: 05/24/17 Pre-Operative Diagnosis: infected port Operation: removal of portacath Findings: clean wound, no pus found wound closed Post-Operative Diagnosis: Same as Pre-op Surgeon: Tavo Hall Anesthesia: Fractional Estimated Blood Loss (mls): 5 Operative Report Dictated: Yes
[2017-05-24 10:31] LABS: PLATELET ESTIMATE DECREASED (NORMAL)
[2017-05-24] MEDS: PANTOPRAZOLE 20 MG TABLET (FP) PO SCH ×2 (11:21→21:01)
[2017-05-24] MEDS: DEXAMETHASONE 0.5 MG TABLET PO SCH (11:21)
[2017-05-24] MEDS: VANCOMYCIN 1,250 MG in DEXTROSE 5%-WATER - 250 ML IVPB SCH (11:21)
[2017-05-24] MEDS: MAGNESIUM OXIDE 400 MG TABLET (FP) PO SCH ×2 (11:22→21:01)
[2017-05-24] MEDS: FOLIC ACID 1 MG TABLET (FP) PO SCH (11:22)
--- NOTE | 2017-05-24 11:50 | PN ---
Progress Note, Physician Chief Complaint: ID Vancomycin going daily No complaints Never febrile Port out as of today ! - Current Medication List Current Medications: Active Medications Acetaminophen (Tylenol -) 650 mg PO Q4H PRN PRN Reason: PAIN Last Admin: 05/24/17 03:59 Dose: 650 mg Alprazolam (Xanax -) 0.5 mg PO TID PRN PRN Reason: ANXIETY Last Admin: 05/23/17 22:50 Dose: 0.5 mg Dexamethasone (Decadron -) 0.5 mg PO DAILY [facility] Last Admin: 05/24/17 11:21 Dose: 0.5 mg Folic Acid (Folic Acid -) 1 mg PO DAILY [facility] Last Admin: 05/24/17 11:22 Dose: 1 mg Dextrose/Sodium Chloride (D5-1/2ns -) 1,000 mls @ 75 mls/hr IV ASDIR [facility] Last Admin: 05/24/17 03:56 Dose: Not Given Vancomycin HCl 1,250 mg/ (Dextrose) 250 mls @ 166.667 mls/hr IVPB DAILY [facility] PRN Reason: Protocol Last Admin: 05/24/17 11:21 Dose: 166.667 mls/hr Levothyroxine Sodium (Synthroid -) 150 mcg PO DAILY@0700 [facility] Last Admin: 05/24/17 06:02 Dose: 150 mcg Magnesium Oxide (Mag-Ox -) 400 mg PO BID [facility] Last Admin: 05/24/17 11:22 Dose: 400 mg Oxycodone HCl (Roxicodone -) 10 mg PO Q4H PRN PRN Reason: PAIN Last Admin: 05/24/17 08:02 Dose: 10 mg Pantoprazole Sodium (Protonix -) 20 mg PO BID [facility] Last Admin: 05/24/17 11:21 Dose: 20 mg - Objective Vital Signs: Vital Signs Temperature 98.7 F 05/23/17 22:00 Pulse Rate 81 05/23/17 22:00 Respiratory Rate 16 05/24/17 07:48 Blood Pressure 118/80 05/23/17 22:00 O2 Sat by Pulse Oximetry (%) 98 05/24/17 07:48 Constitutional: Yes: Well Nourished, No Distress HENT: Yes: WNL, Atraumatic Neck: Yes: WNL, Supple Cardiovascular: Yes: Regular Rate and Rhythm, S1, S2. No: Murmur Respiratory: Yes: WNL, Regular, CTA Bilaterally Gastrointestinal: Yes: WNL, Normal Bowel Sounds, Soft. No: Tenderness, Epigastrium Edema: No Labs: CBC, BMP 05/24/17 09:10 05/24/17 09:10 INR, PTT INR 1.12 (0.82-1.09) 05/24/17 09:10 Assessment/Plan Microbiology 05/21/17 15:30 Blood - Jackie Cath Blood Culture - Final Staphylococcus Epidermidis 05/19/17 10:20 Blood - Jackie Cath Blood Culture - Final Staphylococcus Epidermidis 05/18/17 20:38 Blood - Peripheral Venous Blood Culture - Final Staphylococcus Epidermidis Laboratory Tests 05/22/17 05/24/17 05/24/17 12:50 09:10 09:10 WBC 10.4 H Plt Count 63 L Creatinine 1.0 D Vancomycin Pre-Dose 19.837 H* Assessment Staph Epid bacteremia MRSE port removed now/Lung CA Plan Repeat blood cultures sent today same day port removed Patient does not want PICC line We could give Linezolid 600mg bid 10 days Discussed with oncology Vivian POST
--- NOTE | 2017-05-24 17:40 | PN ---
Progress Note, Physician History of Present Illness: f/u for bactermia in a pt with mNSCLC - Current Medication List Current Medications: Active Medications Acetaminophen (Tylenol -) 650 mg PO Q4H PRN PRN Reason: PAIN Last Admin: 05/24/17 15:54 Dose: 650 mg Alprazolam (Xanax -) 0.5 mg PO TID PRN PRN Reason: ANXIETY Last Admin: 05/23/17 22:50 Dose: 0.5 mg Dexamethasone (Decadron -) 0.[address] [facility] Last Admin: 05/24/17 11:21 Dose: 0.5 mg Folic Acid (Folic Acid -) [address] [facility] Last Admin: 05/24/17 11:22 Dose: 1 mg Dextrose/Sodium Chloride (D5-1/2ns -) 1,000 mls @ 75 mls/hr IV ASDIR [facility] Last Admin: 05/24/17 03:56 Dose: Not Given Levothyroxine Sodium (Synthroid -) 150 mcg PO DAILY@0700 [facility] Last Admin: 05/24/17 06:02 Dose: 150 mcg Linezolid (Zyvox (Restricted To Id) -) [address] [facility] Stop: 05/27/17 22:00 Linezolid (Zyvox (Restricted To Id) -) 600 mg PO ONCE ONE Stop: 05/24/17 22:01 Magnesium Oxide (Mag-Ox -) [address] [facility] Last Admin: 05/24/17 11:22 Dose: 400 mg Oxycodone HCl (Roxicodone -) 10 mg PO Q4H PRN PRN Reason: PAIN Last Admin: 05/24/17 15:55 Dose: 10 mg Pantoprazole Sodium (Protonix -) [address] [facility] Last Admin: 05/24/17 11:21 Dose: 20 mg - Objective Vital Signs: Vital Signs Temperature 97.5 F L 05/24/17 14:57 Pulse Rate 91 H 05/24/17 14:57 Respiratory Rate 20 05/24/17 14:57 Blood Pressure 128/85 05/24/17 14:57 O2 Sat by Pulse Oximetry (%) 98 05/24/17 07:48 Constitutional: Yes: No Distress, Calm Eyes: Yes: Conjunctiva Clear HENT: Yes: Atraumatic, Normocephalic Neck: Yes: Supple, Trachea Midline Cardiovascular: Yes: Regular Rate and Rhythm Respiratory: Yes: Regular, CTA Bilaterally Gastrointestinal: Yes: Normal Bowel Sounds, Soft Edema: No Labs: CBC, BMP 05/24/17 09:10 05/24/17 09:10 INR, PTT INR 1.12 (0.82-1.09) 05/24/17 09:10 Problem List - Problems (1) Positive blood cultures Code(s): R78.81 - BACTEREMIA (2) Primary lung adenocarcinoma Code(s): C34.90 - MALIGNANT NEOPLASM OF UNSP PART OF UNSP BRONCHUS OR LUNG Qualifiers: Laterality: unspecified laterality Qualified Code(s): C34.90 - Malignant neoplasm of unspecified part of unspecified bronchus or lung (3) Brain metastases Code(s): C79.31 - SECONDARY MALIGNANT NEOPLASM OF BRAIN (4) Anemia Code(s): D64.9 - ANEMIA, UNSPECIFIED Qualifiers: Bone marrow failure anemia type: pancytopenia, antineoplastic chemotherapy- induced (5) Hypokalemia Code(s): E87.6 - HYPOKALEMIA (6) Thrombocytopenia Code(s): D69.6 - THROMBOCYTOPENIA, UNSPECIFIED Assessment/Plan is a patient with mNSCLC (adeno) , 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 Staph Epi bactermia: -Port removed today, appreciate vascular consult -Linezolid from tonight, appreciate ID consult. Anemia/Thrombocytopenia: -Chemo induced . RESIDENCE COUNSELOR mets: -pt on Dex of 0.5mg daily mNSCLC: -OP follow-up for his continued treatment.
[2017-05-24] MEDS ORDERED: LINEZOLID 600 MG TABLET (RESTRICTED TO ID) PO ONE (22:00)
--- NOTE | 2017-05-24 22:21 | PN ---
Progress Note, Physician History of Present Illness: Portacath removed today Pt refuses PIC line - Current Medication List Current Medications: Active Medications Acetaminophen (Tylenol -) 650 mg PO Q4H PRN PRN Reason: PAIN Last Admin: 05/24/17 21:05 Dose: 650 mg Alprazolam (Xanax -) 0.5 mg PO TID PRN PRN Reason: ANXIETY Last Admin: 05/23/17 22:50 Dose: 0.5 mg Dexamethasone (Decadron -) 0.5 mg PO DAILY [facility] Last Admin: 05/24/17 11:21 Dose: 0.5 mg Folic Acid (Folic Acid -) 1 mg PO DAILY [facility] Last Admin: 05/24/17 11:22 Dose: 1 mg Dextrose/Sodium Chloride (D5-1/2ns -) 1,000 mls @ 75 mls/hr IV ASDIR [facility] Last Admin: 05/24/17 03:56 Dose: Not Given Levothyroxine Sodium (Synthroid -) 150 mcg PO DAILY@0700 [facility] Last Admin: 05/24/17 06:02 Dose: 150 mcg Linezolid (Zyvox (Restricted To Id) -) 600 mg PO BID [facility] Stop: 05/27/17 22:00 Magnesium Oxide (Mag-Ox -) 400 mg PO BID [facility] Last Admin: 05/24/17 21:01 Dose: 400 mg Oxycodone HCl (Roxicodone -) 10 mg PO Q4H PRN PRN Reason: PAIN Last Admin: 05/24/17 21:02 Dose: 10 mg Pantoprazole Sodium (Protonix -) 20 mg PO BID [facility] Last Admin: 05/24/17 21:01 Dose: 20 mg - Objective Vital Signs: Vital Signs Temperature 97.1 F L 05/24/17 18:00 Pulse Rate 81 05/24/17 18:00 Respiratory Rate 20 05/24/17 18:00 Blood Pressure 120/85 05/24/17 18:00 O2 Sat by Pulse Oximetry (%) 98 05/24/17 07:48 Constitutional: Yes: No Distress Neck: Yes: WNL, Supple Cardiovascular: Yes: WNL, Regular Rate and Rhythm Respiratory: Yes: WNL, Regular, CTA Bilaterally Gastrointestinal: Yes: WNL, Normal Bowel Sounds, Soft Labs: CBC, BMP 05/24/17 09:10 05/24/17 09:10 INR, PTT INR 1.12 (0.82-1.09) 05/24/17 09:10 Problem List - Problems (1) Bacteremia Assessment/Plan: BC (+) STap Epi Pt now on zyvox po Repeat BC done today Port removed DC planning for am Code(s): R78.81 - BACTEREMIA (2) Metastatic adenocarcinoma Assessment/Plan: As per onco Code(s): C79.9 - SECONDARY MALIGNANT NEOPLASM OF UNSPECIFIED SITE (3) Thrombocytopenia Assessment/Plan: Due to chemotx Monitor plts Code(s): D69.6 - THROMBOCYTOPENIA, UNSPECIFIED (4) Anemia Assessment/Plan: Chemotx induced Monitor H/H Code(s): D64.9 - ANEMIA, UNSPECIFIED Qualifiers: Bone marrow failure anemia type: pancytopenia, antineoplastic chemotherapy- induced (5) Brain metastases Assessment/Plan: Cont decadron Code(s): C79.31 - SECONDARY MALIGNANT NEOPLASM OF BRAIN (6) COPD (chronic obstructive pulmonary disease) Code(s): J44.9 - CHRONIC OBSTRUCTIVE PULMONARY DISEASE, UNSPECIFIED Qualifiers : COPD type: unspecified COPD Qualified Code(s): J44.9 - Chronic obstructive pulmonary disease, unspecified (7) Hypothyroidism Assessment/Plan: Cont levothyroxine Code(s): E03.9 - HYPOTHYROIDISM, UNSPECIFIED Qualifiers: Hypothyroidism type: unspecified Qualified Code(s): E03.9 - Hypothyroidism, unspecified
[2017-05-24] MEDS: ALPRAZolam 0.25 MG TABLET PO PRN (23:05)
[2017-05-25] MEDS ORDERED: ACETAMINOPHEN 325 MG TABLET (FP) PO PRN (01:33)
[2017-05-25] MEDS: oxyCODONE HCL 5 MG TABLET PO PRN ×3 (01:43→10:51)
[2017-05-25] MEDS: ACETAMINOPHEN 325 MG TABLET (FP) PO PRN ×3 (01:45→10:52)
[2017-05-25] MEDS: LEVOTHYROXINE NA 150 MCG TABLET PO SCH (06:13)
--- NOTE | 2017-05-25 07:56 | OP ---
DATE OF OPERATION: 05/24/2017 PREOPERATIVE DIAGNOSIS: Infected Port-A-Cath. POSTOPERATIVE DIAGNOSIS: Infected Port-A-Cath. PROCEDURE: Removal of Port-A-Cath. SURGEON: Tavo Goldsmith DO ANESTHESIA: Fractional. BLOOD LOSS: 5 mL INDICATION FOR PROCEDURE: The patient is a 47-year-old male who had a port placed in the past and now has cultures growing Staphylococcus epidermidis in the blood. It was decided that the port would need to be removed. Patient was consented for the procedure, understanding all risks, benefits, and alternatives, was then taken to the operating room. DESCRIPTION OF PROCEDURE: Once in the operating room, he was laid on the operating table in supine manner. The area of the right neck and chest were prepped and draped in a sterile surgical manner. We then injected 10 mL over the port. We then took a number 15 blade and made a 5-cm incision over the port. Bovie electrocautery was then used to control hemostasis, and we were able to dissect the port and remove it. Port was removed. Pressure was held over the right IJ for 3 minutes. There was no bleeding. Wound was then well irrigated. There was no pus around the wound, was nice and clean with a good, clean base. We then used 3-0 Vicryl, and the subcutaneous tissue was approximated in interrupted manner. The skin was closed with 4-0 Biosyn in subcuticular running fashion. The area was wet and dried. Two Steri-Strips were placed, 4 x 4 Tegaderms were placed. The patient tolerated the procedure with no complication. Patient transferred to PACU in stable condition. TAVO GOLDSMITH DO CONCRETER/[id number]
[2017-05-25 09:31] VITALS: BP 121/84; PULSE 84; TEMP 98.1
[2017-05-25] MEDS: MAGNESIUM OXIDE 400 MG TABLET (FP) PO SCH (09:37)
[2017-05-25] MEDS: FOLIC ACID 1 MG TABLET (FP) PO SCH (09:37)
[2017-05-25] MEDS: DEXAMETHASONE 0.5 MG TABLET PO SCH (09:37)
[2017-05-25] MEDS: PANTOPRAZOLE 20 MG TABLET (FP) PO SCH (09:37)
[2017-05-25] MEDS ORDERED: LINEZOLID 600 MG TABLET (RESTRICTED TO ID) PO SCH (10:00)
--- NOTE | 2017-05-25 14:27 | PATH ---
Surgical Pathology Report Patient Name: MAHOGANY RAMSAY Med. Rec. #: [id number] /Age/Gender: 1965 (Age: 51) / M Account: [id number] Location: [facility] MED/SURG Taken: 05/24/2017 Received: 05/24/2017 Reported: 05/25/2017 Physicians: Tavo Reyes M.D. Specimen(s) Received REMOVAL OF PORTACATH Clinical History Positive blood cultures Final Diagnosis OLD PORT-A-CATH, REMOVAL: FRONT DESK PERSON (GROSS EXAM). Electronically Signed Sanchez De La Cruz M.D. Gross Description Received fresh labeled "old port a cath" is a 3.2 x 2.4 x 1.3 cm purple device, consistent with a port. The port displays a 26.5 cm in length portion of tubing extending from one aspect. No soft tissue is present. No sections are submitted, gross only. /05/24/2017 saudi05/24/2017
== END 2017-05-25 12:27 | disposition home or self-care (01) | DRG 721 ==
LOC: JER 18:48 → JERBED 23:20 → UNDOADMIN 23:46 → JERBED 23:46 → J7W 05-19 01:27
PROVIDERS: ADMIT Internal Medicine; ATTEND Internal Medicine
PROC: 30233N1 Transfusion of Nonautologous Red Blood Cells into Peripheral Vein, Percutaneous Approach (ICD-10-PCS; 2017-05-20)
PROC: 0JPT0XZ Removal of Tunneled Vascular Access Device from Trunk Subcutaneous Tissue and Fascia, Open Approach (ICD-10-PCS; principal; 2017-05-24 09:00)
DX: T80.211A Bloodstream infection due to central venous catheter, initial encounter (principal); R78.81 Bacteremia; C79.31 Secondary malignant neoplasm of brain; D69.6 Thrombocytopenia, unspecified; C34.90 Malignant neoplasm of unspecified part of unspecified bronchus or lung; D64.9 Anemia, unspecified; E87.6 Hypokalemia; B95.7 Other staphylococcus as the cause of diseases classified elsewhere; Y83.8 Other surgical procedures as the cause of abnormal reaction of the patient, or of later complication, without mention of misadventure at the time of the procedure; F17.210 Nicotine dependence, cigarettes, uncomplicated
CPT/HCPCS: 36415; 36430; 80053; 81003; 85025; 85027; 85610; 85730; 86850; 86900; 86901; 86922; 87040; 87186; 88300-TC; 93005; 93010; 93306-TC; 99283-25; G0480; J8540; P9038; P9058

== ENCOUNTER 2017-06-16 07:41 | Day surgery (SDC) | payer OTHER ==
[2017-06-16 09:59] LABS: BASOPHIL 0.9 % (0-2.0); EOSINOPHIL 1.5 % (0-4.5); MCH 25.5 pg (25.7-33.7); MEAN CELL VOLUME 79.6 fl (80-96); MEAN PLT VOLUME 7.7 fl (7.5-11.1); NEUTROPHILS 81.4 % (42.8-82.8); PLATELET COUNT 441 K/MM3 (134-434); RDW 16.5 % (11.9-15.9); WHITE BLOOD COUNT 14.6 K/mm3 (4.0-10.0)
[2017-06-16] MEDS ORDERED: PALONOSETRON HCL 0.25 MG in SODIUM CHLORIDE 50 ML IVPB ONE (10:00)
[2017-06-16] MEDS ORDERED: SODIUM CHLORIDE 250 ML IV ONE (10:00)
[2017-06-16] MEDS ORDERED: DEXAMETHASONE INJECTION 10 MG in SODIUM CHLORIDE 50 ML IVPB ONE (10:00)
[2017-06-16] MEDS ORDERED: CYANOCOBALAMIN (VITAMIN B-12) 1000 MCG/1 ML VIAL IM ONE (10:00)
[2017-06-16 10:11] LABS: ANION GAP 15 (8-16); CALCIUM 9.6 mg/dL (8.5-10.1); CO2 25 mmol/L (21-32); CREATININE 1.2 mg/dL (0.7-1.3); GLUCOSE,RANDOM 84 mg/dL (74-106)
[2017-06-16] MEDS ORDERED: PEMETREXED DISODIUM IVPB ONE (10:30)
[2017-06-16] MEDS ORDERED: SODIUM CHLORIDE IVPB ONE (10:30)
[2017-06-16 10:41] LABS: ALBUMIN 3.2 g/dl (3.4-5.0); ALK PHOS 99 U/L (45-117); BILIRUBIN,DIRECT < 0.2 mg/dL (0.0-0.2); BILIRUBIN,TOTAL 0.4 mg/dL (0.2-1.0); SGOT/AST 17 U/L (15-37); SGPT/ALT 12 U/L (12-78); TOT PROT 7.5 g/dl (6.4-8.2)
[2017-06-16 12:43] VITALS: TEMP 98
[2017-06-16 14:28] VITALS: BP 102/71; PULSE 93
== END 2017-06-16 14:00 | disposition home or self-care (01) ==
LOC: JONCCHEMO 07:41 → J7W 09:13 → JONCCHEMO 14:00
PROVIDERS: ATTEND Internal Medicine Hematology & Oncology
DX: Z51.11 Encounter for antineoplastic chemotherapy (principal); C34.91 Malignant neoplasm of unspecified part of right bronchus or lung; D70.1 Agranulocytosis secondary to cancer chemotherapy; E53.8 Deficiency of other specified B group vitamins
CPT/HCPCS: 36415; 80048; 80076; 82378; 85025; 96375; 96413; J2469; J9305

== ENCOUNTER 2017-06-17 07:44 | Day surgery (SDC) | payer OTHER ==
[2017-06-17 09:49] VITALS: PULSE 83; TEMP 97.3
[2017-06-17] MEDS ORDERED: PEGFILGRASTIM 6 MG/0.6 ML DISP.SYRIN SQ ONE (10:00)
[2017-06-17 11:14] VITALS: BP 103/79
== END 2017-06-17 10:15 | disposition home or self-care (01) ==
LOC: JONCCHEMO 07:44 → J7W 09:45 → JONCCHEMO 10:15
PROVIDERS: ATTEND Internal Medicine Hematology & Oncology
PROC: 3E013GC Introduction of Other Therapeutic Substance into Subcutaneous Tissue, Percutaneous Approach (ICD-10-PCS; principal; 2017-06-17)
DX: C34.91 Malignant neoplasm of unspecified part of right bronchus or lung (principal); E53.8 Deficiency of other specified B group vitamins; D70.1 Agranulocytosis secondary to cancer chemotherapy
CPT/HCPCS: 96372; J2505

== ENCOUNTER 2017-08-12 07:38 | Day surgery (SDC) | payer OTHER ==
[2017-08-12 09:33] LABS: MCH 22.2 pg (25.7-33.7); MCHC 30.6 g/dl (32.0-35.9); MEAN CELL VOLUME 72.4 fl (80-96); MEAN PLT VOLUME 7.5 fl (7.5-11.1); PLATELET COUNT 246 K/MM3 (134-434); RDW 16.9 % (11.9-15.9); WHITE BLOOD COUNT 22.1 K/mm3 (4.0-10.0)
[2017-08-12] MEDS ORDERED: PEMBROLIZUMAB 200 MG in SODIUM CHLORIDE 50 ML IV ONE (10:00)
[2017-08-12] MEDS ORDERED: SODIUM CHLORIDE 250 ML IV ONE ×2 (10:00→11:00)
[2017-08-12 10:04] LABS: ALBUMIN 2.7 g/dl (3.4-5.0); ANION GAP 9 (8-16); BILIRUBIN,DIRECT 0.1 mg/dL (0.0-0.2); BILIRUBIN,TOTAL 0.5 mg/dL (0.2-1.0); CALCIUM 8.7 mg/dL (8.5-10.1); CO2 30 mmol/L (21-32); CREATININE 1.4 mg/dL (0.7-1.3); GLUCOSE,RANDOM 127 mg/dL (74-106); SGOT/AST 13 U/L (15-37); SGPT/ALT 10 U/L (12-78); TOT PROT 6.8 g/dl (6.4-8.2)
[2017-08-12 10:06] LABS: ALK PHOS 126 U/L (45-117); FREE T4 1.08 ng/dl (0.76-1.16)
[2017-08-12 10:29] LABS: BASOPHIL %. 0 % (0-2.0); PLATELET ESTIMATE ADEQUATE (NORMAL)
[2017-08-12 10:48] VITALS: TEMP 97.8
[2017-08-12] MEDS ORDERED: PORTA CATH FLUSH 10 ML IVPUSH ONE (10:51)
[2017-08-12 17:26] VITALS: BP 93/63; PULSE 108
== END 2017-08-12 12:35 | disposition home or self-care (01) ==
LOC: JONCCHEMO 07:38 → J7W 09:45 → JONCCHEMO 12:35
PROVIDERS: ATTEND Internal Medicine Hematology & Oncology
DX: Z51.11 Encounter for antineoplastic chemotherapy (principal); C34.91 Malignant neoplasm of unspecified part of right bronchus or lung
CPT/HCPCS: 36415; 80053; 80076; 83735; 84439; 85025; 96361; 96413; J9271

== ENCOUNTER 2017-09-05 15:54 | Emergency (ER) | payer OTHER ==
[2017-09-05 16:05] VITALS: BMI 22.4
--- NOTE | 2017-09-05 17:44 | PDOC ---
History of Present Illness - General Chief Complaint: Shortness of Breath Stated Complaint: SOB, PAIN, Chemo last week Time Seen by Provider: 09/05/17 16:19 Past History - Past Medical History Allergies/Adverse Reactions: Allergies Allergy/AdvReac Type Severity Reaction Status Date / Time No Known Allergies Allergy Verified 09/05/17 16:05 Home Medications: Ambulatory Orders Folic Acid 1 mg PO DAILY 03/10/17 Levothyroxine [Synthroid -] 100 mcg PO DAILY 03/10/17 Magnesium Oxide 400 mg PO BID 03/10/17 Omeprazole 20 mg PO BID 03/10/17 Mirtazapine [Remeron -] 15 mg PO HS 09/05/17 Morphine Sulfate [Morphine Sulfate ER] 15 mg PO TID 09/05/17 Oxycodone HCl/Acetaminophen [Oxycodon-Acetaminophen 7.5-300] 2 each PO DAILY 10/10 Anemia: Yes Cancer: Yes (LUNG ADENOCARCINOMA,Starts Chemo ) COPD: No Thyroid Disease: Yes - Surgical History Lung Surgery: No (lung biopsy) - Suicide/Smoking/Psychosocial Hx Smoking Status: Yes Smoking History: Unknown if ever smoked Have you smoked in the past 12 months: No Number of Cigarettes Smoked Daily: 5 If you are a former smoker, when did you quit?: 1 wk ago Information on smoking cessation initiated: No 'Breaking Loose' booklet given: 11/09/16 Hx Alcohol Use: No Drug/Substance Use Hx: No Substance Use Type: None Hx Substance Use Treatment: No *Physical Exam - Vital Signs Last Vital Signs Temp Pulse Resp BP Pulse Ox 97.4 F L 124 H 23 107/49 98 09/05/17 16:01 09/05/17 16:20 09/05/17 16:01 09/05/17 16:01 09/05/17 16:20 ED Treatment Course - LABORATORY CBC & Chemistry Diagram: 09/05/17 17:38 09/05/17 17:38 *DC/Admit/Observation/Transfer - Referrals Referrals: Owen Rolon MD [Primary Care Provider] - - Patient Instructions - Post Discharge Activity
[2017-09-05 17:46] LABS: MCH 21.5 pg (25.7-33.7); MCHC 30.9 g/dl (32.0-35.9); MEAN CELL VOLUME 69.5 fl (80-96); MEAN PLT VOLUME 7.5 fl (7.5-11.1); PLATELET COUNT 289 K/MM3 (134-434); RDW 17.4 % (11.9-15.9); WHITE BLOOD COUNT 20.6 K/mm3 (4.0-10.0)
--- NOTE | 2017-09-05 17:47 | PDOC ---
Attending Attestation - Resident Resident Name: Kirill Allison - ED Attending Attestation I have performed the following: I have examined & evaluated the patient, The case was reviewed & discussed with the resident, I agree w/resident's findings & plan, Exceptions are as noted - HPI HPI: 09/05/17 17:44 51 yo male with metastatic lung cancer w liver mets presents with c/o pain in area of right anterior ribcage pain - Physicial Exam PE: 09/07/17 00:19 -51 yo male p/w dyspnea. Pt has lung cancer w liver mets, he does have oxygen at home . -on 2 L nasal cannula oxygen his pulse os is 94% -cta chest shows increased severity of his lung cancer but it;s NEGATIVE FOR PE or dissection _ spoke w oncologist Dr Amalia zelaya for Dr Lord and the plan is for the pt to see Dr Lord tomorrow in the office 09/07/17 00:[age] yo male looking older than stated age who erports feeling short of breath HEENT wnl lungs no crackles cvs tachycardia abd soft,no rebound,mild luq tenderness in rt anterior ribcage ext no deformity neuro axox3,ambulatory - Medical Decision Making 09/07/17 00:31 Lung cancer,dyspnea plan continue your oxygen at home and see Dr Lord in the office ,keep yourTuesday appt
[2017-09-05 18:41] LABS: ALBUMIN 2.4 g/dl (3.4-5.0); ALK PHOS 126 U/L (45-117); ANION GAP 9 (8-16); BILIRUBIN,TOTAL 0.2 mg/dL (0.2-1.0); CALCIUM 8.4 mg/dL (8.5-10.1); CO2 28 mmol/L (21-32); CREATININE 0.9 mg/dL (0.7-1.3); GLUCOSE,RANDOM 99 mg/dL (74-106); SGOT/AST 11 U/L (15-37); SGPT/ALT 11 U/L (12-78); TOT PROT 6.5 g/dl (6.4-8.2)
[2017-09-05 19:23] LABS: ANISOCYTOSIS 1+; HYPOCHROMIA 2+; MICROCYTOSIS 1+; REACTIVE LYMPHOCYTES 2 % (0-80); TARGET CELLS 1+
--- NOTE | 2017-09-05 20:52 | PDOC ---
History of Present Illness - General Chief Complaint: Shortness of Breath Stated Complaint: SOB, PAIN, Chemo last week Time Seen by Provider: 09/05/17 16:19 - History of Present Illness Initial Comments: 09/05/17 23:47 Patient is a 51 year old male with significant medical hx of metastatic lung cancer s/p 04/30 treatments of chemotherapy (last treatment 05/12) presents with right sided ribcage pain near/under the anterior flotting ribs and difficulty breathing for the past week. He states that he had to use his oxygen tank to breathe comfortably, something he never had to do until now. Patient has an appointment with Dr. Lord on Wednesday but couldnt wait till then as pain and sob were unbearable. 09/06/17 00:37 Past History - Past Medical History Allergies/Adverse Reactions: Allergies Allergy/AdvReac Type Severity Reaction Status Date / Time No Known Allergies Allergy Verified 09/05/17 16:05 Home Medications: Ambulatory Orders Folic Acid 1 mg PO DAILY 03/10/17 Levothyroxine [Synthroid -] 100 mcg PO DAILY 03/10/17 Magnesium Oxide 400 mg PO BID 03/10/17 Omeprazole 20 mg PO BID 03/10/17 Mirtazapine [Remeron -] 15 mg PO HS 09/05/17 Morphine Sulfate [Morphine Sulfate ER] 15 mg PO TID 09/05/17 Oxycodone HCl/Acetaminophen [Oxycodon-Acetaminophen 7.5-300] 2 each PO DAILY 10/10 Anemia: Yes Cancer: Yes (LUNG ADENOCARCINOMA,Starts Chemo ) COPD: No Thyroid Disease: Yes - Surgical History Lung Surgery: No (lung biopsy) - Suicide/Smoking/Psychosocial Hx Smoking Status: Yes Smoking History: Unknown if ever smoked Have you smoked in the past 12 months: No Number of Cigarettes Smoked Daily: 5 If you are a former smoker, when did you quit?: 1 wk ago Information on smoking cessation initiated: No 'Breaking Loose' booklet given: 11/09/16 Hx Alcohol Use: No Drug/Substance Use Hx: No Substance Use Type: None Hx Substance Use Treatment: No Review of Systems - Review of Systems Constitutional: No: Symptoms Reported HEENTM: No: Symptoms Reported Respiratory: Yes: Cough, Shortness of Breath, SOB with Exertion, SOB at Rest Cardiac (ROS): Yes: Chest Pain ABD/GI: No: Symptoms Reported : Yes: Symptoms Reported Musculoskeletal: Yes: Symptoms Reported *Physical Exam - Vital Signs Last Vital Signs Temp Pulse Resp BP Pulse Ox 98.6 F 111 H 18 101/61 96 09/06/17 00:51 09/06/17 00:51 09/06/17 00:51 09/06/17 00:51 09/06/17 00:51 - Physical Exam General Appearance: Yes: Nourished. No: Apparent Distress HEENT: positive: EOMI, SONNY Neck: negative: Tender Respiratory/Chest: positive: Chest Tender (anterior 10-12th rib), Crackles, Rales, Rhonchi, Other (catheter port on upper right chest) Cardiovascular: positive: Regular Rhythm, Regular Rate, S1, S2, Tachycardia Gastrointestinal/Abdominal: positive: Normal Bowel Sounds, Flat, Soft. negative : Tender Extremity: negative: Cyanosis, Pedal Edema, Swelling Neurologic: positive: Fully Oriented, Alert, Normal Mood/Affect ED Treatment Course - LABORATORY CBC & Chemistry Diagram: 09/05/17 17:38 09/05/17 17:38 - ADDITIONAL ORDERS Additional order review: Laboratory Results 09/05/17 17:38 Sodium 131 L Potassium 3.9 Chloride 94 L Carbon Dioxide 28 Anion Gap 9 BUN 14 D Creatinine 0.9 Creat Clearance w eGFR > 60 Random Glucose 99 D Calcium 8.4 L Total Bilirubin 0.2 AST 11 L ALT 11 L D Alkaline Phosphatase 126 H Total Protein 6.5 Albumin 2.4 L 09/05/17 17:38 RBC 4.08 MCV 69.5 L MCHC 30.9 L RDW 17.4 H MPV 7.5 Neutrophils % No Result Required. Lymphocytes % No Result Required. - RADIOLOGY Radiology Studies Ordered: Category Date Time Status ABDOMEN & PELVIS CT W/O CONTR [CT] Stat CT Scan 09/05/17 17:11 Taken CHEST CTA [CT] Stat CT Scan 09/06/17 00:02 Taken - Medications Given in the ED: ED Medications Discontinued Medications Generic Name Dose Route Start Last Admin Trade Name Freq PRN Reason Stop Dose Admin Sodium Chloride 500 mls @ 500 mls/hr 09/05/17 22:08 09/05/17 23:45 Normal Saline - IV 09/05/17 23:07 500 mls/hr ASDIR STA Administration Medical Decision Making - Medical Decision Making 09/06/17 00:07 Patient is a 51 year old male with significant medical hx of metastatic lung cancer s/p 04/30 treatments of chemotherapy (last treatment 05/12) presents with right sided ribcage pain near/under the anterior floatting ribs and difficulty breathing for the past week. chest xray done last week Patient pain right on the border of chest and abdomen. Consulted with Dr. Welsh, acquisitions assistant for Dr. Lord who agreed with getting ct abdomen to find etiology of new pain. CT Abd: Ill-defined masslike consolidative opacity in the right middle lobe with multiple pulmonary nodules in the right lower lobe with small to moderate right pleural effusion. Recommend Ct of the chest with IV contrast to further charecterize as well as whole body PET scan. Diferential diagnosis includes primary lung cancer with metastatic pulmonary lesions given multiple hepatic and bilateral adrenal lesions. Possibility of pneumonitis. Multiple shotty periaortic lymph nodes concerning for metastatic disease. 2.2cm soft tissue exophytic lesion arising from the midpole of the left kidney.Recommend ultrasound or MRI. Given 20 lasix for pleural effusion. Patient still tachpneic, tachycardic, still complains of sob and chest pain. Ordered CTA to r/o PE in context of hypercoagulative state of malignancy. CTA CHEST: Diffuse mediastinal and right hilar soft tissue may represent infiltrative neoplasm ans/or metastatic adenopathy and involvment of the right apical pleura suggests mesothelioma. Primary lung cancer also considered. Collapsed right upper lobe bronchi with right upper lobe post-obstructive pneumonia and/or atelectasis versus direct spread of neoplasm and presumed nodular metastases and lymphangitic spread of carcinoma throughout the rest of the right lung. Small right pleural effusion and 9mm thick pericardial effusion. Liver, adrenal and retroperitoneal metastases. 09/06/17 00:36 09/06/17 01:[address] Lord again to talk about patient disposition Patient will be followed by Dr. Noyola from this point on. *DC/Admit/Observation/Transfer Diagnosis at time of Disposition: Chest pain - Referrals Referrals: Owen Rolon MD [Primary Care Provider] - - Patient Instructions - Post Discharge Activity
[2017-09-05] MEDS ORDERED: SODIUM CHLORIDE 500 ML IV STA (22:08)
[2017-09-05] MEDS ORDERED: FUROSEMIDE 40 MG/4 ML INJECTABLE VIAL IVPUSH SCH (22:15)
[2017-09-05] MEDS ORDERED: FUROSEMIDE 40 MG/4 ML INJECTABLE VIAL ONE (23:33)
[2017-09-06 00:52] VITALS: BP 101/61; PULSE 111; TEMP 98.6
--- NOTE | 2017-09-06 01:44 | PDOC ---
*Physical Exam - Vital Signs Last Vital Signs Temp Pulse Resp BP Pulse Ox 98.6 F 111 H 18 101/61 96 09/06/17 00:51 09/06/17 00:51 09/06/17 00:51 09/06/17 00:51 09/06/17 00:51 ED Treatment Course - LABORATORY CBC & Chemistry Diagram: 09/05/17 17:38 09/05/17 17:38 - ADDITIONAL ORDERS Additional order review: Laboratory Results 09/05/17 17:38 Sodium 131 L Potassium 3.9 Chloride 94 L Carbon Dioxide 28 Anion Gap 9 BUN 14 D Creatinine 0.9 Creat Clearance w eGFR > 60 Random Glucose 99 D Calcium 8.4 L Total Bilirubin 0.2 AST 11 L ALT 11 L D Alkaline Phosphatase 126 H Total Protein 6.5 Albumin 2.4 L 09/05/17 17:38 RBC 4.08 MCV 69.5 L MCHC 30.9 L RDW 17.4 H MPV 7.5 Neutrophils % No Result Required. Lymphocytes % No Result Required. - Medications Given in the ED: ED Medications Discontinued Medications Generic Name Dose Route Start Last Admin Trade Name Freq PRN Reason Stop Dose Admin Sodium Chloride 500 mls @ 500 mls/hr 09/05/17 22:08 09/05/17 23:45 Normal Saline - IV 09/05/17 23:07 500 mls/hr ASDIR STA Administration *DC/Admit/Observation/Transfer Diagnosis at time of Disposition: Dyspnea on exertion Lung cancer Qualifiers: Laterality: right Lung location: overlapping sites Qualified Code(s): C34.81 - Malignant neoplasm of overlapping sites of right bronchus and lung - Discharge Dispostion Disposition: HOME - Referrals Referrals: Owen Rolon MD [Primary Care Provider] - - Patient Instructions Printed Discharge Instructions: DI for Lung Cancer, DI for Shortness of Breath Additional Instructions: PLEASE SEE DR TAVARES SONN POSSIBLE THIS WEEK YOU SHOULD RETURN OF YOUR SYMPTOMS WORSEN PLEASE WEAR YOUR OXYGEN NEEDED - Post Discharge Activity
--- NOTE | 2017-09-06 13:32 | PDOC ---
Patient Follow-up (Call Back) - Post ED Follow - Up Disposition at time of original discharge: HOME Reason for Call Back: Radiology (Was called by Dr. Kimball from radiology, CT scan demonstrated interval development of multiple hepatic metastasis bilateral adrenal gland metastasis, osseous metastasis and pathologically enlarged retroperitoneal Metro crucial retrocardiac lymph nodes compatible with disease progression, spoke to Dr. Lord, report of scanned sent to [facility] Velasquez to follow- up with further radiological studies and treatment.)
== END 2017-09-06 02:20 | disposition home or self-care (01) ==
LOC: JER 15:54
PROC: 3E033GC Introduction of Other Therapeutic Substance into Peripheral Vein, Percutaneous Approach (ICD-10-PCS; principal; 2017-09-05)
DX: C34.81 Malignant neoplasm of overlapping sites of right bronchus and lung (principal); E03.9 Hypothyroidism, unspecified; D64.9 Anemia, unspecified
CPT/HCPCS: 36415; 71275-TC; 74176-TC; 80053; 85025; 96374; 99283-25

== ENCOUNTER 2017-09-20 08:58 | Day surgery (SDC) | payer OTHER ==
[~2017-09-20 08:58] MED LIST changes: -CARBOPLATIN IVPB ONE; -CYANOCOBALAMIN (VITAMIN B-12) 1000 MCG/1 ML VIAL IM ONE; -DEXAMETHASONE INJECTION 10 MG in SODIUM CHLORIDE 50 ML IVPB ONE; -PALONOSETRON HCL 0.25 MG in SODIUM CHLORIDE 50 ML IVPB ONE; -PEMETREXED DISODIUM IVPB ONE; -SODIUM CHLORIDE IVPB ONE
[2017-09-20] MEDS ORDERED: PEMBROLIZUMAB 200 MG in SODIUM CHLORIDE 50 ML IV ONE (09:00)
[2017-09-20] MEDS ORDERED: SODIUM CHLORIDE 250 ML IV ONE (09:30)
[2017-09-20 10:53] LABS: MCH 20.9 pg (25.7-33.7); MCHC 29.7 g/dl (32.0-35.9); MEAN CELL VOLUME 70.4 fl (80-96); MEAN PLT VOLUME 7.7 fl (7.5-11.1); PLATELET COUNT 248 K/MM3 (134-434); RDW 18.1 % (11.9-15.9); WHITE BLOOD COUNT 27.7 K/mm3 (4.0-10.0)
[2017-09-20 11:28] LABS: ALK PHOS 117 U/L (45-117); ANION GAP 9 (8-16); BILIRUBIN,DIRECT < 0.2 mg/dL (0.0-0.2); BILIRUBIN,TOTAL 0.3 mg/dL (0.2-1.0); CALCIUM 8.5 mg/dL (8.5-10.1); CO2 26 mmol/L (21-32); CREATININE 0.9 mg/dL (0.7-1.3); GLUCOSE,RANDOM 99 mg/dL (74-106); MAGNESIUM 1.6 mg/dL (1.8-2.4); SGOT/AST 19 U/L (15-37); SGPT/ALT 23 U/L (12-78); TOT PROT 6.8 g/dl (6.4-8.2)
[2017-09-20 14:26] LABS: MYELOCYTE 2 % (0-2)
[2017-09-20 14:27] LABS: PLATELET ESTIMATE ADEQUATE
[2017-09-20 18:08] VITALS: TEMP 97.2
[2017-09-20 18:26] VITALS: BP 132/88; PULSE 95
[2017-09-20] MEDS ORDERED: PORTA CATH FLUSH 10 ML IVPUSH ONE (18:26)
== END 2017-09-20 14:05 | disposition home or self-care (01) ==
LOC: JONCCHEMO 08:58 → J7W 11:17 → JONCCHEMO 14:05
PROVIDERS: ATTEND Internal Medicine Hematology & Oncology
DX: Z51.11 Encounter for antineoplastic chemotherapy (principal); C34.91 Malignant neoplasm of unspecified part of right bronchus or lung; D70.1 Agranulocytosis secondary to cancer chemotherapy
CPT/HCPCS: 36415; 80053; 80076; 83735; 85025; 96361; 96413; J9271

== ENCOUNTER 2017-09-27 09:51 | Emergency (ER) | payer OTHER ==
[2017-09-27 10:04] VITALS: TEMP 97.9; BMI 23.1
[2017-09-27] MEDS ORDERED: morphine CARPU-JECT 4 MG/1 ML DISP.SYRIN IM ONE (10:27)
--- NOTE | 2017-09-27 10:30 | PDOC ---
History of Present Illness - General Chief Complaint: Pain, Acute Stated Complaint: PAIN (PCP SENT) Time Seen by Provider: 09/27/17 10:12 History Source: Patient - History of Present Illness Associated Symptoms: denies: chest pain, cough, fever/chills, shortness of breath Past History - Past Medical History Allergies/Adverse Reactions: Allergies Allergy/AdvReac Type Severity Reaction Status Date / Time No Known Allergies Allergy Verified 09/27/17 10:01 Home Medications: Ambulatory Orders Levothyroxine [Synthroid -] 100 mcg PO DAILY 03/10/17 Magnesium Oxide 400 mg PO BID 03/10/17 Omeprazole 20 mg PO BID 03/10/17 Morphine Sulfate [Morphine Sulfate ER] 15 mg PO TID 09/05/17 Oxycodone HCl/Acetaminophen [Oxycodon-Acetaminophen 7.5-300] 2 each PO DAILY 10/10 Dexamethasone [Decadron -] 4 mg PO Q6H #120 tablet 09/10/17 Folic Acid - 1 mg PO DAILY #30 tablet 09/10/17 Mirtazapine [Remeron -] 15 mg PO HS tablet 09/10/17 Pantoprazole Sodium [Protonix -] 20 mg PO BID tablet.ec 09/10/17 Lidocaine 5% Patch [Lidoderm Patch -] 1 patch TP DAILY #7 patch 09/27/17 Anemia: Yes Cancer: Yes (LUNG ADENOCARCINOMA,Start Chemo ) Cardiac Disorders: No CVA: No COPD: No CHF: No Dementia: No Diabetes: No GI Disorders: No HTN: No Hypercholesterolemia: No Liver Disease: No Seizures: No Thyroid Disease: Yes (hypothyroid) - Surgical History Abdominal Surgery: No Appendectomy: No Cardiac Surgery: No Cholecystectomy: No Lung Surgery: No (lung biopsy) Neurologic Surgery: No Orthopedic Surgery: No - Immunization History Immunization Up to Date: Yes - Suicide/Smoking/Psychosocial Hx Smoking Status: Yes Smoking History: Current every day smoker Have you smoked in the past 12 months: Yes Number of Cigarettes Smoked Daily: 4 If you are a former smoker, when did you quit?: 1 wk ago Information on smoking cessation initiated: No 'Breaking Loose' booklet given: 11/09/16 Hx Alcohol Use: No Drug/Substance Use Hx: No Substance Use Type: None Hx Substance Use Treatment: No Review of Systems - Review of Systems Constitutional: No: Chills, Fever Respiratory: No: Cough, Shortness of Breath Cardiac (ROS): No: Chest Pain Musculoskeletal: Yes: Back Pain Neurological: No: Numbness, Tingling, Weakness *Physical Exam - Vital Signs Last Vital Signs Temp Pulse Resp BP Pulse Ox 97.9 F 123 H 20 114/71 94 L 09/27/17 10:01 09/27/17 10:01 09/27/17 10:01 09/27/17 10:01 09/27/17 10:01 - Physical Exam General Appearance: Yes: Appropriately Dressed. No: Apparent Distress HEENT: positive: Normal Voice Neck: positive: Supple Respiratory/Chest: positive: Lungs Clear, Normal Breath Sounds. negative: Respiratory Distress Cardiovascular: positive: S1, S2, Tachycardia Gastrointestinal/Abdominal: positive: Soft. negative: Tender Musculoskeletal: positive: Vertebral Tenderness (sig ttp to R mid back) Integumentary: positive: Dry, Warm Neurologic: positive: Fully Oriented, Alert, Normal Mood/Affect ED Treatment Course - LABORATORY CBC & Chemistry Diagram: 09/27/17 11:00 09/27/17 11:00 - RADIOLOGY Radiology Studies Ordered: Category Date Time Status CHEST PA & LAT [RAD] Stat Radiology 09/27/17 10:28 Ordered Medical Decision Making - Medical Decision Making 51 yo M, h/o metastatic lung ca w/ mets to Tspine, no longer on oxygen 2/2 improvement of chronic SNYDER, s/p chemo and currently undergoing XRT to spine which pt restarted last week and was scheduled to have another session this am but been having excruciating R mid back pain to site of radiation since last week despite oxycodone use. Referred to ED for pain control. No CP/SOB/ palpitations/leg pain/swelling, cough, f/c. No h/o PE. Not on blood thinners. No LE weakness, b/b incontinence or saddle anesthesia See exam Post radiation pain to Spine Sent to ED by rad onc for pain control for possible radiculopathy as per note No e/o cauda equina Pt tachy and hypoxic, possible 2/2 pain but PE considered though no CP/SOB/ Palpitations -will tx pain, reassess vitals and get CXR 09/27/17 10:47 09/27/17 10:47 09/27/17 10:48 09/27/17 12:50 White count 14, but based on cart review has been trending down for the past several weeks. Chest x-ray unchanged, but seen is a possible mild new compression fracture at T10, which could possibly be contributing to patient's pain versus post radiation pain. Patient improved with pain control in ED. Rpt vitals w/ HR of 100 and pulse ox of 96% on RA. Pt continues to deny CP/SOB or palpitations. Appears comfortable and currently eating a lunch tray. Will contact Dr Lord prior to disposition 09/27/17 13:04 Case discussed w/ Dr Lord, agrees w/ disposition, states pt should f/u in office this week. Pt informed and ok with plan. Feels safe going home. Reasons to return d/w pt *DC/Admit/Observation/Transfer Diagnosis at time of Disposition: Right-sided back pain Qualifiers: Back pain location: back pain in unspecified location Chronicity: acute Qualified Code(s): M54.9 - Dorsalgia, unspecified - Discharge Dispostion Disposition: HOME Condition at time of disposition: Improved - Prescriptions Prescriptions: Lidocaine 5% Patch [Lidoderm Patch -] 1 patch TP DAILY #7 patch - Referrals Referrals: Jp Rolon MD [Primary Care Provider] - - Patient Instructions Additional Instructions: Continue taking your Percocet as prescribed and use Lidoderm as directed. Call Dr. Lord today to make an appointment for this week Please return for worsening of symptoms - Post Discharge Activity
[2017-09-27] MEDS ORDERED: morphine SULFATE 4 MG/ML VIAL ONE (10:31)
[2017-09-27] MEDS ORDERED: LIDOCAINE 5% TOPICAL PATCH TP ONE (11:21)
[2017-09-27] MEDS ORDERED: traMADol HCL 50 MG TABLET PO ONE (11:22)
[2017-09-27 11:25] VITALS: BP 115/74
[2017-09-27] MEDS ORDERED: traMADol HCL 50 MG TABLET ONE (11:31)
[2017-09-27] MEDS ORDERED: LIDOCAINE 5% TOPICAL PATCH ONE (11:32)
[2017-09-27 12:02] LABS: MCH 21.7 pg (25.7-33.7); MCHC 30.9 g/dl (32.0-35.9); MEAN CELL VOLUME 70.5 fl (80-96); MEAN PLT VOLUME 7.3 fl (7.5-11.1); PLATELET COUNT 125 K/MM3 (134-434); RDW 18.1 % (11.9-15.9)
[2017-09-27 12:28] LABS: ALBUMIN 2.7 g/dl (3.4-5.0); ANION GAP 6 (8-16); CALCIUM 8.5 mg/dL (8.5-10.1); CO2 35 mmol/L (21-32); CREATININE 0.8 mg/dL (0.7-1.3); GLUCOSE,RANDOM 85 mg/dL (74-106); SGOT/AST 18 U/L (15-37); SGPT/ALT 23 U/L (12-78)
[2017-09-27 12:30] LABS: ALK PHOS 131 U/L (45-117); BILIRUBIN,TOTAL 0.4 mg/dL (0.2-1.0); TOT PROT 6.1 g/dl (6.4-8.2)
[2017-09-27 13:15] VITALS: PULSE 100
[2017-09-27 14:03] LABS: TOTAL CELLS COUNTED 100
[2017-09-27 14:06] LABS: ANISOCYTOSIS 3+; MICROCYTOSIS 2+; TARGET CELLS 2+; TEAR DROP CELLS 1+
== END 2017-09-27 13:21 | disposition home or self-care (01) ==
LOC: JER 09:51
PROC: 3E023NZ Introduction of Analgesics, Hypnotics, Sedatives into Muscle, Percutaneous Approach (ICD-10-PCS; principal; 2017-09-27)
DX: M54.9 Dorsalgia, unspecified (principal); C34.90 Malignant neoplasm of unspecified part of unspecified bronchus or lung; Z72.0 Tobacco use; E03.9 Hypothyroidism, unspecified
CPT/HCPCS: 36415; 71020-TC; 80053; 85025; 96372; 99282-25

== ENCOUNTER 2017-09-27 19:52 | Inpatient (IN) | payer OTHER ==
--- NOTE | 2017-09-27 20:03 | PDOC ---
Rapid Medical Evaluation Chief Complaint: Back Pain Time Seen by Provider: 09/27/17 20:00 Medical Evaluation: Allergies Allergy/AdvReac Type Severity Reaction Status Date / Time No Known Allergies Allergy Verified 09/27/17 19:59 09/27/17 20:00 I have performed a brief in person evaluation of this patient. The patient presents with chief complaint of : pain to area of radiation treatment given today to the right side, pt has right side lung cancer. Pertinent PE findings: right side TTP chest wall. dx 08/09 sent to ER by I have ordered the following: The patient will proceed to the ER for further evaluation.
[2017-09-27] MEDS ORDERED: morphine CARPU-JECT 4 MG/1 ML DISP.SYRIN IVPUSH ONE (21:30)
[2017-09-27] MEDS ORDERED: morphine SULFATE 4 MG/ML VIAL ONE (21:45)
[2017-09-27] MEDS ORDERED: DEXAMETHASONE SOD PHOSPHATE 10 MG/1 ML VIAL IVPUSH ONE (22:00)
[2017-09-27] MEDS ORDERED: SODIUM CHLORIDE 0.9% 500 ML INFUS.BAG IV ONE (22:04)
--- NOTE | 2017-09-27 22:04 | PDOC ---
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 Patient reports, continuing his radiation therapy last wednesday for his lung cancer. He reports right sided back pain began last week after receiving radiation. Patient reports coming to [place] ED this morning for the back pain pain. Patient states he was discharged with lidocaine patch prescription and morphine shot which initially helped but the pain returned. Patient reports being unable to stand up secondary to pain while at home. He states he was heard screaming by upstairs neighbors and was taken to the ED. Patient reports calling Dr. Lord who advised him to return to the ED. Patient reports he has had 20 radiation treatments and states he currently has 10 more. Patient states last radiation treatment was on wednesday. Patient Takes 15mg of oxycodone every 6 hours with no relief. Denies chest pain, SOB. Denies fever, chills. Denies trauma to affected area. Denies any other symptoms. Allergies: Allergies Social history: Current smoker (2 Cigarettes per day). No alcohol. No illicit drugs. Surgical history: None PMD: Dr. Jp Rolon Oncologist: <Justice Pearson - Last Filed: 09/28/17 06:39> - General Chief Complaint: Back Pain Stated Complaint: BACK PAIN Time Seen by Provider: 09/27/17 20:00 Past History - Past Medical History Anemia: Yes Cancer: Yes (LUNG ADENOCARCINOMA,Start Chemo current radiation tx) Cardiac Disorders: No CVA: No COPD: No CHF: No Dementia: No Diabetes: No GI Disorders: No HTN: No Hypercholesterolemia: No Liver Disease: No Seizures: No Thyroid Disease: Yes (hypothyroid) - Surgical History Abdominal Surgery: No Appendectomy: No Cardiac Surgery: No Cholecystectomy: No Lung Surgery: No (lung biopsy) Neurologic Surgery: No Orthopedic Surgery: No - Immunization History Immunization Up to Date: Yes - Suicide/Smoking/Psychosocial Hx Smoking Status: Yes Smoking History: Current every day smoker Have you smoked in the past 12 months: Yes Number of Cigarettes Smoked Daily: 4 If you are a former smoker, when did you quit?: 1 wk ago Information on smoking cessation initiated: No 'Breaking Loose' booklet given: 11/09/16 Hx Alcohol Use: No Drug/Substance Use Hx: No Substance Use Type: None Hx Substance Use Treatment: No <Tammy Carreon - Last Filed: 09/27/17 22:43> <Justice Pearson - Last Filed: 09/28/17 06:39> - Past Medical History Allergies/Adverse Reactions: Allergies Allergy/AdvReac Type Severity Reaction Status Date / Time No Known Allergies Allergy Verified 09/27/17 19:59 Home Medications: Ambulatory Orders Levothyroxine [Synthroid -] 100 mcg PO DAILY 03/10/17 Magnesium Oxide 400 mg PO BID 03/10/17 Omeprazole 20 mg PO BID 03/10/17 Morphine Sulfate [Morphine Sulfate ER] 15 mg PO TID 09/05/17 Oxycodone HCl/Acetaminophen [Oxycodon-Acetaminophen 7.5-300] 2 each PO DAILY 10/10 Dexamethasone [Decadron -] 4 mg PO Q6H #120 tablet 09/10/17 Folic Acid - 1 mg PO DAILY #30 tablet 09/10/17 Mirtazapine [Remeron -] 15 mg PO HS tablet 09/10/17 Pantoprazole Sodium [Protonix -] 20 mg PO BID tablet.ec 09/10/17 Lidocaine 5% Patch [Lidoderm Patch -] 1 patch TP DAILY #7 patch 09/27/17 Review of Systems - Review of Systems Able to Perform ROS?: Yes Comments:: 09/28/17 06:37 GENERAL/CONSTITUTIONAL: No fever or chills. No weakness. HEAD, EYES, EARS, NOSE AND THROAT: No change in vision. No ear pain or discharge. No sore throat. GASTROINTESTINAL: No nausea, vomiting, diarrhea or constipation. GENITOURINARY: No dysuria, frequency, or change in urination. CARDIOVASCULAR: No chest pain or shortness of breath. RESPIRATORY: No cough, wheezing, or hemoptysis. MUSCULOSKELETAL: +Right sided lower back pain. . No joint or muscle swelling or pain. No neck pain SKIN: No rash NEUROLOGIC: No headache, vertigo, loss of consciousness, or change in strength/ sensation. ENDOCRINE: No increased thirst. No abnormal weight change. HEMATOLOGIC/LYMPHATIC: No anemia, easy bleeding, or history of blood clots. ALLERGIC/IMMUNOLOGIC: No hives or skin allergy. All Other Systems: Reviewed and Negative <Justice Pearson - Last Filed: 09/28/17 06:39> *Physical Exam - Vital Signs Last Vital Signs Temp Pulse Resp BP Pulse Ox 97.4 F L 118 H 20 107/78 92 L 09/27/17 20:01 09/27/17 20:01 09/27/17 20:01 09/27/17 20:01 09/27/17 20:01 <Tammy Carreon - Last Filed: 09/27/17 22:43> - Vital Signs Last Vital Signs Temp Pulse Resp BP Pulse Ox 98.5 F 91 H 18 127/70 93 L 09/28/17 00:40 09/28/17 00:40 09/28/17 00:40 09/28/17 00:40 09/28/17 02:46 - Physical Exam Comments: 09/28/17 06:38 GENERAL: +Appears uncomfortable, chronically ill appearing Awake, alert, and fully oriented, in no acute distress HEAD: No signs of trauma EYES: PERRLA, EOMI, sclera anicteric, conjunctiva clear ENT: +Dry mucous membrane. Auricles normal inspection, hearing grossly normal, nares patent, oropharynx clear without exudates. NECK: Normal ROM, supple, no lymphadenopathy, JVD, or masses LUNGS: Breath sounds equal, clear to auscultation bilaterally. No wheezes, and no crackles HEART: +Tachycardic to 115 but regular. Regular rhythm, normal S1 and S2, no murmurs, rubs or gallops ABDOMEN: Soft, nontender, normoactive bowel sounds. No guarding, no rebound. No masses MUSCULOSKELETAL: +Tender to palpation along thoracic spine and right flank. No deformities noted. EXTREMITIES: Normal range of motion, no edema. No clubbing or cyanosis. No cords , erythema, or tenderness NEUROLOGICAL: Normal speech, cranial nerves intact, negative pronator drift, 5/ 5 strength in UE,4/5 strength in LE, however exam limited by pain. normal sensation to light touch in all 4 extremities, normal cerebellar exam, normal gait, normal reflexes and tone SKIN: Warm, Dry, normal turgor, no rashes or lesions noted. <Justice Pearson - Last Filed: 09/28/17 06:39> ED Treatment Course - RADIOLOGY Radiology Studies Ordered: Category Date Time Status LUMBAR SPINE MRI W/O CONTRAST [MRI] Stat MRI 09/27/17 21:42 Ordered THORACIC SPINE MRI W/O CONTR [MRI] Stat MRI 09/27/17 21:42 Ordered - Medications Given in the ED: ED Medications Discontinued Medications Generic Name Dose Route Start Last Admin Trade Name Freq PRN Reason Stop Dose Admin Morphine Sulfate 4 mg 09/27/17 21:30 09/27/17 21:50 Morphine Injection - IVPUSH 09/27/17 21:31 4 mg ONCE ONE Administration <Tammy Carreon - Last Filed: 09/27/17 22:43> - Medications Given in the ED: ED Medications Discontinued Medications Generic Name Dose Route Start Last Admin Trade Name Freq PRN Reason Stop Dose Admin Dexamethasone Sodium Phosphate 10 mg 09/27/17 22:00 09/27/17 22:57 Decadron Injection - IVPUSH 09/27/17 22:01 10 mg ONCE ONE Administration Morphine Sulfate 4 mg 09/27/17 21:30 09/27/17 21:50 Morphine Injection - IVPUSH 09/27/17 21:31 4 mg ONCE ONE Administration Sodium Chloride 1,000 ml 09/27/17 22:04 09/27/17 22:53 Normal Saline - IV 09/27/17 22:05 1,000 ml ONCE ONE Administration <Justice Pearson - Last Filed: 09/28/17 06:39> Medical Decision Making - Medical Decision Making 09/27/17 22:43 51-year-old male with a history of lung CA with metastases to the spine and brain metastases presents to the ED for the second time today with back pain at the site where he gets radiation. Vitals remarkable for tachycardia to 118. Patient appears very uncomfortable on exam and has tenderness to palpation along the thoracic spine and the right thoracic area. Discussed the case with the patient's covering oncologist Dr. Golden who recommends that we obtain an MRI to eval for spinal mets and consult Dr. Oh from neurosurgery. Dr. Oh recommends additional 10 mg of IV Decadron (pt on 4mg Q6h at home). Case discussed with Dr. Reyes who will admit the patient. Case discussed in detail with admitting physician including history, physical exam and ancillary studies. Admitting physician has assumed care for the patient, will follow all pending diagnostics and will complete the evaluation and treatment. <Tammy Carreon - Last Filed: 09/27/17 22:43> *DC/Admit/Observation/Transfer - Discharge Dispostion Admit: Yes - Attestations Physician Attestion: 09/27/17 22:47 I, Dr. Tammy Carreon MD, attest that this document has been prepared under my direction and personally reviewed by me in its entirety. I further attest, that it accurately reflects all work, treatment, procedures and medical decision -making performed by me. <Tammy Carreon - Last Filed: 09/27/17 22:43> - Attestations Scribe Attestion: 09/28/17 06:39 Documentation prepared by Justice Pearson, acting as director of medical staff services for Tammy Carreon MD, MD/DO. <Justice Pearson - Last Filed: 09/28/17 06:39> Diagnosis at time of Disposition: Right-sided back pain - Discharge Dispostion Condition at time of disposition: Stable
[2017-09-27] MEDS ORDERED: DEXAMETHASONE SOD PHOSPHATE 10 MG/1 ML VIAL ONE (22:54)
[2017-09-28] MEDS ORDERED: morphine SULFATE 4 MG/ML VIAL IVPUSH PRN (01:28)
[2017-09-28] MEDS: morphine SULFATE 4 MG/ML VIAL IVPUSH PRN ×2 (01:38→06:53)
[2017-09-28 02:59] VITALS: BMI 23.8
[2017-09-28] MEDS ORDERED: morphine SO4 SUSTAINED ACTING 15 MG TABLET.SA PO SCH (06:00)
[2017-09-28] MEDS: LEVOTHYROXINE NA 100 MCG TABLET (FP) PO SCH (06:53)
--- NOTE | 2017-09-28 07:22 | PN ---
Progress Note (short form) - Note Progress Note: NEUROSURGERY CONSULT DICTATED Chart reviewed History obtained Pt examined H/o Alzheimer's, adenocarcinoma of lung s/p ongoing chemo with mets to L cerebellum (s/p RT), T and LS spine (undergoing RT) and adrenals, pancytopenia , hypothyroidism, c/o right sided mid back pain x 1 week. He has been treated with RT for spinal mets. Unable to stand up secondary to pain but better today. Last RT session was on Wednesday. Pain worse with getting up. No leg weakness, numbness, tingling. No b/B dysfunction. Was in ED previously and treated and discharged earlier in the day. Stated that he had MRI last week in "[place]". PE: AF,VSS HEENT- NC/AT; Neck- supple; Cor- RRR; Lungs- CTA B; Abd- benign, + BS; Ext- no sign of DVT CN- intact; Motor- 5/5 except R IP 4+; Sensation- intact LT, decreased distal vibration; DTR- 1+, no LTS; Gait- stable; cerebellar- mild tremor, intact FTN CT T/LS spine (08/2017): L T10 vertebral met with extension into T9-10 neuroforamen, no cord compression or impingement; degenerativge spondylolisthesis L3-4 and L5-S1; sacral S1-[address] (08/2017): stable R cerebellar stroke, stable L cerebellar met previously radiated Multifocal mets from lung adenoCA Obtain outside MRI T spine report if available, if not available consider repeat MRI T spine MRI with harleen Surgery not generally indicated for extensive metastatic disease deepthi pt with minimal neurological deficits R IP weakness might be related to R S1-2 mets Rad onc f/u Advised Decadron bolus 10 mg x1 and cont current dosage for now Consider duragesic patch for cancer pain control Consider pain management if persistent pain
--- NOTE | 2017-09-28 08:54 | HP ---
CHIEF COMPLAINT: worsening back pain secondary to malignancy History Source: Patient PCP: Dr. Miladys Reyes HISTORY OF PRESENT ILLNESS: Patient is a 51 year old male with a significant past medical history of adenocarcinoma of lung with mets to left cerebellum (s/p RT), spine and adrenals. He was recently hospitalized on 09/2016 for pleural effusion/ pericardial effusion/tamponade. His other medical history includes COPD, anemia, pancytopenia and hypothyroidism. He is s/p chemotherapy and treatment with radiation therapy for spinal mets. His last RT was on Wednesday. He was having worsening pain at home but pain is slightly improving today. He was seen ambulating in the hallways, but states his pain comes intermittently and can be severe / especially when going from laying down to a standing position. He denies leg weakness, numbness, tingling. He presented to the ED on 09/27/2017 and discharged earlier in the day. He had a MRI recently but does not recall where, he states that his physician, Dr. Lord has the MRI records. We will try to obtain these records, if unable to may need to repeat MRI. Patient was seen by neurosurgery today and decadron 10mg bolus x 1 was ordered. Will try a duragesic patch for pain control as per neurosurgery recommendations. Will continue oxycodone 15mg for breakthrough pain. May need a pain evaluation if pain is not controlled. ER course was notable for: (1) Mag 1.6 (2) hmg/hmt 8.0/26.5 (3) WBC 14 Recent Travel: PAST MEDICAL HISTORY: adenocarcinoma of lung with mets to left cerebellum (s/p RT), spine and adrenals, pleural effusion/pericardial effusion/tamponade, COPD, anemia, pancytopenia and hypothyroidism. He is s/p chemotherapy and treatment with radiation therapy for spinal mets PAST SURGICAL HISTORY: Social History: Smoking: no Alcohol:no Drugs: no Family History: Allergies No Known Allergies Allergy (Verified 09/27/17 19:59) HOME MEDICATIONS: Home Medications Medication Instructions Recorded Levothyroxine [Synthroid -] 100 mcg PO DAILY 03/10/17 Magnesium Oxide 400 mg PO BID 03/10/17 Omeprazole 20 mg PO BID 03/10/17 Morphine Sulfate [Morphine Sulfate 15 mg PO TID 09/05/17 ER] Oxycodone HCl/Acetaminophen 2 each PO DAILY 09/05/17 [Oxycodon-Acetaminophen 7.5-300] Dexamethasone [Decadron -] 4 mg PO Q6H #120 tablet 09/10/17 Folic Acid - 1 mg PO DAILY #30 tablet 09/10/17 Mirtazapine [Remeron -] 15 mg PO HS tablet 09/10/17 Pantoprazole Sodium [Protonix -] 20 mg PO BID tablet.ec 09/10/17 Lidocaine 5% Patch [Lidoderm Patch 1 patch TP DAILY #7 patch 09/27/17 -] REVIEW OF SYSTEMS CONSTITUTIONAL: Absent: fever, chills, diaphoresis, generalized weakness, malaise, loss of appetite, weight change HEENT: Absent: rhinorrhea, nasal congestion, throat pain, throat swelling, difficulty swallowing, mouth swelling, ear pain, eye pain, visual changes CARDIOVASCULAR: Absent: chest pain, syncope, palpitations, irregular heart rate, lightheadedness , peripheral edema RESPIRATORY: Absent: cough, shortness of breath, dyspnea with exertion, orthopnea, wheezing, stridor, hemoptysis GASTROINTESTINAL: Absent: abdominal pain, abdominal distension, nausea, vomiting, diarrhea, constipation, melena, hematochezia GENITOURINARY: Absent: dysuria, frequency, urgency, hesitancy, hematuria, flank pain, genital pain MUSCULOSKELETAL: Absent: myalgia, arthralgia, joint swelling, back pain, neck pain SKIN: Absent: rash, itching, pallor HEMATOLOGIC/IMMUNOLOGIC: Absent: easy bleeding, easy bruising, lymphadenopathy, frequent infections ENDOCRINE: Absent: unexplained weight gain, unexplained weight loss, heat intolerance, cold intolerance NEUROLOGIC: Absent: headache, focal weakness or paresthesias, dizziness, unsteady gait, seizure, mental status changes, bladder or bowel incontinence PSYCHIATRIC: Absent: anxiety, depression, suicidal or homicidal ideation, hallucinations. PHYSICAL EXAMINATION Vital Signs - 24 hr 09/27/17 09/27/17 09/28/17 20:01 23:48 00:40 Temperature 97.4 F L 98.5 F Pulse Rate 118 H 91 H Pulse Rate [ 84 Apical] Respiratory 20 20 18 Rate Blood Pressure 107/78 127/70 Blood Pressure 116/82 [Left Arm] O2 Sat by Pulse 92 L 93 L Oximetry (%) 09/28/17 09/28/17 02:46 06:00 Temperature 97.7 F Pulse Rate 77 Pulse Rate [ Apical] Respiratory 18 Rate Blood Pressure 105/75 Blood Pressure [Left Arm] O2 Sat by Pulse 93 L Oximetry (%) GENERAL: Awake, alert, and fully oriented, in no acute distress. HEAD: Normal with no signs of trauma. EYES: Pupils equal, round and reactive to light, extraocular movements intact, sclera anicteric, conjunctiva clear. No lid lag. EARS, NOSE, THROAT: Ears normal, nares patent, oropharynx clear without exudates. Moist mucous membranes. NECK: Normal range of motion, supple without lymphadenopathy, JVD, or masses. LUNGS:diminished right lung sounds, left lung clear, tolerating room air HEART: Regular rate and rhythm, normal S1 and S2 without murmur, rub or gallop. ABDOMEN: Soft, nontender, not distended, normoactive bowel sounds, no guarding, no rebound, no masses. No hepatomegaly or splenomegaly. MUSCULOSKELETAL: Normal range of motion at all joints. No bony deformities or tenderness. No CVA tenderness. UPPER EXTREMITIES: . No peripheral edema. LOWER EXTREMITIES: No peripheral edema. NEUROLOGICAL: Normal speech. steady gait. PSYCHIATRIC: Cooperative. Good eye contact. Appropriate mood and affect. SKIN: Warm, dry, normal turgor, no rashes or lesions noted, normal capillary refill. ASSESSMENT/PLAN: Patient is a 51 year old male with a significant past medical history of adenocarcinoma of lung with mets to left cerebellum (s/p RT), spine and adrenals. He was recently hospitalized on 09/2016 for pleural effusion/ pericardial effusion/tamponade. His other medical history includes COPD, anemia, pancytopenia and hypothyroidism. He is s/p chemotherapy and treatment with radiation therapy for spinal mets. His last RT was on Wednesday. He was having worsening back pain at home but pain is slightly improving today. He was seen ambulating in the hallways, but states his pain comes intermittently and can be severe 10/10 especially when going from laying down to a standing position. He denies leg weakness, numbness, tingling. He presented to the ED on 09/27/2017 and discharged earlier in the day. He had a MRI recently but does not recall where, he states that his physician, Dr. Lord has the MRI records. We will try to obtain these records, if unable to may need to repeat MRI. Patient was seen by neurosurgery today and decadron 10mg bolus x 1 was ordered. Will try a duragesic patch for pain control as per neurosurgery recommendations. Will continue oxycodone 15mg for breakthrough pain. May need a pain evaluation if pain is not controlled. Imaging: Head CT (08/2017): stable R cerebellar stroke, stable L cerebellar met previously radiated CT/thoracic/CT Lumbar 09/09/2017: (1) lytic mets within the left haf of the t10 vertreal body extending into the left pedicle with ventral epiduarl extension of neoplasm measuring up prox 3mm in thickeness (2) lytic mets within the right s1 and s2 vertebra with enhancing neoplasm surround the exitng right s1 nerve root (3) ill defined lucent lesion in the right half of the sacral body is suspicious for additional mets. Neurology: Back pain, acute on chronic CT thorax/lumbar as above Back pain not resolved with home oxycodone 15mg Seen by Neuro, Decadron 10mg iv x 1 given Manage pain with Fentanyl 25mcg patch and oxycodone 15mg q6 prn for breakthrough pain Colace to avoid narcotic induced constipation Pain consulted by primary MD Oncology consulted Oncology: Lung cancer with mets Oncology consulted, pt is s/p chemotherapy Monitor blood counts Also receiving RT therapy Monitor respiratory status Hematology: Leukocytosis, acute WBC 14, likely secondary to steriod use High risk for sepsis d/t immunocompromised stated Blood cultures ordered Monitor vitals, labs Anemia, chronic Anemia likely secondary to adenocarcinoma hmg/hmt trending down, currently 8.0/26.5 Repeat CBC now Transfuse if hmg continues to drop Pulmonary: COPD, history Not in acute exacerbation Albuterol as need Oxygen supplementation at 2 liters prn F.E.N. Fluids: tolerating PO Electrolytes: hypomag, repleted Nutrition: regular diet Prophylaxis: DVT: Heparin BID, ambulatory GI: deferred disposition: full code Visit type - Emergency Visit Emergency Visit: Yes ED Registration Date: 09/27/17 Care time: The patient presented to the Emergency Department on the above date and was hospitalized for further evaluation of their emergent condition. - New Patient This patient is new to me today: Yes Date on this admission: 09/28/17 - Critical Care Critical Care patient: No
[2017-09-28] MEDS ORDERED: PT OWN MED DRAWER 7, Y5N ONE ×3 (08:59→21:41)
[2017-09-28] MEDS: FOLIC ACID 1 MG TABLET (FP) PO SCH (09:09)
[2017-09-28] MEDS: MAGNESIUM OXIDE 400 MG TABLET (FP) PO SCH ×2 (09:09→23:10)
[2017-09-28] MEDS: LIDOCAINE 5% TOPICAL PATCH TP SCH (09:09)
[2017-09-28] MEDS: HEPARIN NA (PORCINE) 5,000 UNITS/ML 1ML VIAL SQ SCH ×2 (09:09→23:09)
[2017-09-28] MEDS: DOCUSATE SODIUM 100 MG CAPSULE (FP) PO SCH ×3 (09:09→23:09)
[2017-09-28] MEDS: DEXAMETHASONE SOD PHOSPHATE 4 MG/1 ML VIAL IVPUSH SCH ×2 (09:21→17:27)
[2017-09-28] MEDS ORDERED: oxyCODONE HCL 10 MG SUSTAINED ACTING TABLET PO SCH (10:00)
[2017-09-28] MEDS ORDERED: LIDOCAINE 5% TOPICAL PATCH TP SCH (10:00)
[2017-09-28 10:52] LABS: BASOPHIL 0.1 % (0-2.0); MCH 21.4 pg (25.7-33.7); MCHC 30.4 g/dl (32.0-35.9); MEAN CELL VOLUME 70.7 fl (80-96); MEAN PLT VOLUME 8.2 fl (7.5-11.1); NEUTROPHILS 92.6 % (42.8-82.8); PLATELET COUNT 115 K/MM3 (134-434); RDW 18.8 % (11.9-15.9); WHITE BLOOD COUNT 13.6 K/mm3 (4.0-10.0)
[2017-09-28] MEDS: NYSTATIN 500,000 UNITS TABLET PO SCH ×3 (11:22→23:10)
[2017-09-28] MEDS: MAG HYDROX/ALH/SMC/DPHA/LIDO 240 ML MOUTHWASH MM SCH ×3 (11:23→23:11)
[2017-09-28 11:33] LABS: ALBUMIN 2.5 g/dl (3.4-5.0); ALK PHOS 104 U/L (45-117); ANION GAP 9 (8-16); BILIRUBIN,TOTAL 0.4 mg/dL (0.2-1.0); CALCIUM 8.4 mg/dL (8.5-10.1); CO2 30 mmol/L (21-32); CREATININE 0.7 mg/dL (0.7-1.3); GLUCOSE,RANDOM 99 mg/dL (74-106); MAGNESIUM 1.6 mg/dL (1.8-2.4); SGOT/AST 13 U/L (15-37); SGPT/ALT 19 U/L (12-78); TOT PROT 5.9 g/dl (6.4-8.2)
--- NOTE | 2017-09-28 12:22 | CONS ---
DATE OF CONSULTATION: 09/28/2017 CHIEF COMPLAINT: Right-sided posterior rib and chest area pain. 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 He was diagnosed in 2016, had undergone chemotherapy regimen and treatment. He has been reasonably under good pain control with oxycodone. About one week ago, he was having some difficulty getting up because of the pain. His last radiation session was on Wednesday. He denies any leg weakness , numbness, or tingling. He has no bowel/bladder dysfunction. He was treated in the emergency room yesterday, treated and released. He returned with persistent pain. He denies Lhermitte sign. He stated that he had recent MRI done in [place]. PAST MEDICAL HISTORY: Significant for hypothyroidism; Alzheimer's; adenocarcinoma with metastases to the left cerebellum, adrenals and T-spine and sacral spine. CURRENT MEDICATIONS: Include Decadron, subcutaneous heparin, Remeron, Lidoderm patch, morphine, Synthroid, folate. ALLERGIES: There are no known drug allergies. FAMILY HISTORY: Noncontributory. SOCIAL HISTORY: He drinks alcohol socially. He still smokes a couple of cigarettes a day despite being urged to quit smoking. He does not work. REVIEW OF SYSTEMS: Otherwise negative for other major constitution, head and neck, cardiovascular, pulmonary, gastrointestinal, genitourinary, endocrinologic, neurologic, or psychologic problems. Specifically, he has no fever or chills or any other signs of infection. PHYSICAL EXAMINATION: Vital signs: Temperature is 98.5, blood pressure is 127/70 with a pulse rate of 91. HEENT: Examination shows him to be normocephalic, atraumatic, anicteric. Neck: Supple with no carotid bruit or lymphadenopathy. Coronary: Examination demonstrates regular rhythm. Lungs: Clear bilaterally. Abdomen: Benign. Extremities: Examination shows no signs of DVT. Neurologic: He is awake and alert and oriented x4. Cranial nerve examination is intact 2-12. Motor examination shows 5/5 strength except right iliopsoas which is 4+. Sensory examination is intact to light touch. He has decreased vibratory sensation in the lower extremity. His gait is stable. Cerebellar examination demonstrates mild tremor, but he has intact ypyxcs-[id number] examination. DIAGNOSTIC DATA: CT scan of the head from September 09 of this year demonstrated a right peripheral cerebellar infarct, which is stable. There is minimal encephalomalacia of the left cerebellum where he had a prior known metastasis, status post radiation treatment. There is no sign of hydrocephalus. There is mild to moderate atrophy. CT scan of the thoracic scan demonstrated left-sided T10 vertebral lytic metastasis with extension into the internal left T9-T10 neuroforamen. There is no obvious spinal cord impingement or compression. Lumbar spine CT scan demonstrated S1-S2 vertebral involvement. The sacral lesion is mostly involving the right- sided S1-S2 vertebra which appears to enhance with contrast. IMPRESSION: 1. Known T10 and S1-S2 metastatic adenocarcinoma of the lung undergoing radiation therapy. 2. Hypothyroidism. 3. History of right cerebellar stroke. 4. Status post left cerebellar metastasis, status post radiation. RECOMMENDATIONS: The patient presents with increasing right-sided posterior rib and chest area pain of one week duration. He has a history of right lung adenocarcinoma and has undergone chemotherapy treatments in the past. He is currently undergoing radiation treatment of the T10 and S1-S2 metastatic involvement. The pain is worse with getting up and straining. His neurological examination remains reasonably nonfocal at this time. The patient states that he had outside MRI done last week, and we should try at least to obtain a report to assess the thoracic spine disease. Otherwise, repeat thoracic spine MRI is needed to better assess his condition and now for more definitive treatment. Because of the extensive metastatic disease, surgical intervention is generally not indicated. I note the patient had received one additional dose of Decadron in the emergency room by report. Radiation oncology and medical oncology followup are recommended. I have discussed the patients further treatment pending availability of the thoracic imaging studies. He can be considered for a course of pain management if his pain persists. Duragesic patch might be a better longer term alternative than short-acting oxycodone only. Pain management consult should also be obtained if needed. RICARDO KENNEY M.D. SRIDHAR/[id number] MTDD
[2017-09-28] MEDS ORDERED: MAGNESIUM SULF 50% (8.12 MEQ/2 ML-1 GM VIAL) IVPB ONE (12:30)
[2017-09-28] MEDS ORDERED: FENTANYL PATCH WASTE MC PRN (13:24)
[2017-09-28] MEDS ORDERED: ALBUTEROL SO4 2.5/IPRATROPIUM 0.5 INH SOL 3 ML VIAL.NEB. NEB PRN (13:43)
[2017-09-28 14:55] LABS: BASOPHIL 0.2 % (0-2.0); MCH 21.2 pg (25.7-33.7); MEAN CELL VOLUME 70.7 fl (80-96); MEAN PLT VOLUME 8.2 fl (7.5-11.1); NEUTROPHILS 92.4 % (42.8-82.8); PLATELET COUNT 122 K/MM3 (134-434); RDW 18.6 % (11.9-15.9); WHITE BLOOD COUNT 13.4 K/mm3 (4.0-10.0)
[2017-09-28] MEDS ORDERED: fentaNYL 25mcg/hr PATCH.TD72 TD SCH (16:00)
[2017-09-28] MEDS: oxyCODONE HCL 5 MG TABLET PO PRN ×2 (16:45→23:11)
--- NOTE | 2017-09-28 19:46 | PN ---
Progress Note (short form) - Note Progress Note: Patient seen and examined Pain improved Last Vital Signs Temp Pulse Resp BP Pulse Ox 98.6 F 102 H 18 133/77 99 09/28/17 19:00 09/28/17 19:00 09/28/17 19:00 09/28/17 19:00 09/28/17 10:41 HEENT: SILVINO, EOM Intact Cor: RSR, No murmurs, No gallops Lungs: scattered rhonchi and bronchial breath sounds Abd: Soft, Normal bowel sounds, No organomegaly Ext:No significant edema, clubbing CBC, BMP 09/28/17 14:20 09/28/17 10:32 Current Medications Generic Name Dose Route Start Last Admin Trade Name Freq PRN Reason Stop Dose Admin Albuterol/Ipratropium 1 amp 09/28/17 13:43 Duoneb - NEB Q6H PRN SHORTNESS OF BREATH Dexamethasone Sodium Phosphate 4 mg 09/28/17 10:00 09/28/17 17:27 Decadron Injection - IVPUSH 4 mg Q8H-IV MARC Administration Docusate Sodium 100 mg 09/28/17 09:00 09/28/17 14:18 Colace - PO Not Given TID MARC Fentanyl 1 patch 09/28/17 16:00 09/28/17 16:45 Duragesic 25mcg Patch - TD 10/05/17 13:25 1 patch Q72H MARC Administration Folic Acid 1 mg 09/28/17 10:00 09/28/17 09:09 Folic Acid - PO 1 mg DAILY MARC Administration Heparin Sodium (Porcine) 5,000 unit 09/28/17 10:00 09/28/17 09:09 Heparin - SQ 5,000 unit BID MARC Administration Levothyroxine Sodium 100 mcg 09/28/17 07:00 09/28/17 06:53 Synthroid - PO 100 mcg DAILY@0700 MARC Administration Lidocaine 1 patch 09/28/17 10:00 09/28/17 09:09 Lidoderm Patch - TP 1 patch DAILY MARC Administration Lidocaine/Aluminum/Magnesium/Simeth 5 ml 09/28/17 10:00 09/28/17 17:28 Magic Mouthwash *Sjr Formula* - MM 5 ml Q6HPO MARC Administration Magnesium Oxide 400 mg 09/28/17 10:00 09/28/17 09:09 Mag-Ox - PO 400 mg BID MARC Administration Mirtazapine 15 mg 09/28/17 22:00 Remeron - PO HS [facility] Miscellaneous 1 each 09/28/17 22:00 Lidoderm Patch Removal MC DAILY@2200 [facility] Miscellaneous 1 each 09/28/17 13:24 Duragesic Patch Waste MC PRN PRN PAIN Nystatin 500,000 unit 09/28/17 10:00 09/28/17 14:22 Mycolog - PO 500,000 unit TID MARC Administration Oxycodone HCl 15 mg 09/28/17 08:56 09/28/17 16:45 Roxicodone - PO 15 mg Q6H PRN Administration PAIN Impression: Lung ca- mets to brain, bone, liver, spine RT Immunotherapy Pain management Pain will need to renew outpatient Rt and Pembrolizumab Pain consult has been requested Will need MRI of spine to assess
[2017-09-28] MEDS ORDERED: ACETYLCYSTEINE 20% 200MG/ML 30 ML VIAL *FOR ORAL / INH USE ONLY PO SCH (20:00)
[2017-09-28] MEDS ORDERED: ACETYLCYSTEINE 20% 200MG/ML 4 ML VIAL *FOR ORAL / INH USE ONLY PO SCH (21:15)
[2017-09-28] MEDS: LIDOCAINE PATCH REMOVAL MC SCH (23:09)
[2017-09-28] MEDS: ACETYLCYSTEINE 20% 200MG/ML 4 ML VIAL *FOR ORAL / INH USE ONLY PO SCH ×2 (23:09→23:19)
[2017-09-28] MEDS: MIRTAZAPINE 15 MG TABLET (FP) PO SCH (23:10)
--- NOTE | 2017-09-28 23:16 | CONSULT ---
Consult Consult Specialty:: pain management Referred by:: dr taveras Reason for Consultation:: back pain - History of Present Illness Chief Complaint: back pain History of Present Illness: 51 year old male with a significant past medical history of adenocarcinoma of lung with mets to left cerebellum (s/p RT), spine and adrenals. He was recently hospitalized on 09/2016 for pleural effusion/pericardial effusion/ tamponade. His other medical history includes COPD, anemia, pancytopenia and hypothyroidism. He is s/p chemotherapy and treatment with radiation therapy for spinal mets. His last RT was on Wednesday. He was having worsening pain at home but pain is slightly improving today. He was seen ambulating in the hallways, but states his pain comes intermittently and can be severe 10/10 especially when going from laying down to a standing position. He denies leg weakness, numbness, tingling. He presented to the ED on 09/27/2017 and discharged earlier in the day. The patient currently is sleeping and the days events were reviewed with the nurse. - Past Medical History [employer]: Yes: Other ([employer] mets- s/p stereotactic radiosurgery (Gamma Knife) ) Cardio/Vascular: Yes: Other (small pericardial effusion ) Pulmonary: Yes: Cancer, COPD, Other ([place] of lung - mets to [employer], liver, spine and adrenal ). No: O2 Dependent Renal/: Yes: Other (hyponatremia) Musculoskeletal: Yes: Other (right rib cage pains) Endocrine: Yes: Hypothyroidism. No: Diabetes Mellitus - Alcohol/Substance Use Hx Alcohol Use: No History of Substance Use: reports: None - Smoking History Smoking history: Current every day smoker Have you smoked in the past 12 months: Yes Aproximately how many cigarettes per day: 4 If you are a former smoker, when did you quit?: 1 wk ago - Social History History of Recent Travel: No Home Medications - Allergies Allergies/Adverse Reactions: Allergies Allergy/AdvReac Type Severity Reaction Status Date / Time No Known Allergies Allergy Verified 09/27/17 19:59 - Home Medications Home Medications: Ambulatory Orders Levothyroxine [Synthroid -] 100 mcg PO DAILY 03/10/17 Magnesium Oxide 400 mg PO BID 03/10/17 Omeprazole 20 mg PO BID 03/10/17 Morphine Sulfate [Morphine Sulfate ER] 15 mg PO TID 09/05/17 Oxycodone HCl/Acetaminophen [Oxycodon-Acetaminophen 7.5-300] 2 each PO DAILY 10/10 Dexamethasone [Decadron -] 4 mg PO Q6H #120 tablet 09/10/17 Folic Acid - 1 mg PO DAILY #30 tablet 09/10/17 Mirtazapine [Remeron -] 15 mg PO HS tablet 09/10/17 Pantoprazole Sodium [Protonix -] 20 mg PO BID tablet.ec 09/10/17 Lidocaine 5% Patch [Lidoderm Patch -] 1 patch TP DAILY #7 patch 09/27/17 Physical Exam Vital Signs: Vital Signs Temperature 98.6 F 09/28/17 19:00 Pulse Rate 102 H 09/28/17 19:00 Respiratory Rate 18 09/28/17 19:00 Blood Pressure 133/77 09/28/17 19:00 O2 Sat by Pulse Oximetry (%) 99 09/28/17 10:41 Constitutional: Yes: Other (patient resting comfortably and sleeping) Labs: CBC, BMP 09/28/17 14:20 09/28/17 10:32 Assessment/Plan Metastatic lung cancer to spine 1. According to the nurse the patient was much better today after starting fentanyl patch and continuing oxycodone 15mg 2. Consider neuropathic agent- gabapentin 100mg PO q8h 3. bowel regimen
[2017-09-29] MEDS: DEXAMETHASONE SOD PHOSPHATE 4 MG/1 ML VIAL IVPUSH SCH ×3 (03:50→17:48)
[2017-09-29] MEDS: oxyCODONE HCL 5 MG TABLET PO PRN ×4 (05:00→23:46)
[2017-09-29] MEDS: LEVOTHYROXINE NA 100 MCG TABLET (FP) PO SCH (06:44)
[2017-09-29] MEDS: DOCUSATE SODIUM 100 MG CAPSULE (FP) PO SCH ×3 (06:44→21:38)
[2017-09-29] MEDS: ACETYLCYSTEINE 20% 200MG/ML 4 ML VIAL *FOR ORAL / INH USE ONLY PO SCH (06:44)
[2017-09-29] MEDS: MAG HYDROX/ALH/SMC/DPHA/LIDO 240 ML MOUTHWASH MM SCH ×4 (06:44→17:55)
[2017-09-29] MEDS: NYSTATIN 500,000 UNITS TABLET PO SCH ×3 (06:44→21:38)
[2017-09-29 07:11] LABS: ALBUMIN 2.2 g/dl (3.4-5.0); ALK PHOS 105 U/L (45-117); ANION GAP 9 (8-16); BILIRUBIN,TOTAL 0.2 mg/dL (0.2-1.0); CALCIUM 8.5 mg/dL (8.5-10.1); CO2 31 mmol/L (21-32); CREATININE 0.7 mg/dL (0.7-1.3); GLUCOSE,RANDOM 88 mg/dL (74-106); MAGNESIUM 1.7 mg/dL (1.8-2.4); SGOT/AST 13 U/L (15-37); SGPT/ALT 18 U/L (12-78); TOT PROT 5.7 g/dl (6.4-8.2)
[2017-09-29 07:12] LABS: BASOPHIL 0.1 % (0-2.0); MCH 21.4 pg (25.7-33.7); MCHC 30.4 g/dl (32.0-35.9); MEAN CELL VOLUME 70.3 fl (80-96); MEAN PLT VOLUME 8.4 fl (7.5-11.1); NEUTROPHILS 92.6 % (42.8-82.8); PLATELET COUNT 106 K/MM3 (134-434); RDW 18.4 % (11.9-15.9)
--- NOTE | 2017-09-29 08:31 | PN ---
Progress Note (short form) - Note Progress Note: Radiation Oncology 51 yo man well known to me (please refer to full consult note of 09/08/17) who has stage IV bronchogenic adenocarcinoma s/p carbo/alimta, RT to right chest and GKS to left cerebellar met, recently keytruda now w progression of disease in liver, adrenals, retroperitoneal nodes and spine (T10 and sacrum, epidural extension with neurologic compromise) recently started RT to T9-T11 and sacrum ( @900 cGy, 3 of 10 tx completed) but missed 3 treatments last week due to transportation issues. Came for treatment on Wednesday c/o increasing/intractable pain at mid back T10 level radiating out to ribs laterally R>L. I sent him to ED , he received morphine injection and was sent home feeling better but then pain recurred later in the day and he became immobilized by the pain. Admitted for pain control. He denies numbness or other areas of pain, leg or arm weakness, incontinence, has some constipation on oxycodone. Received decadron 10mg bolus and started on fentanyl patch. He was seen by the pain specialist. This morning he feels better, has been ambulating with mild intermittent pain that has improved. He is eager to go home. Exam is nonfocal. No spine/paraspinal mass but point tenderness at T10 level. Would agree with repeat imaging of spine to rule out progression of fracture or disease. Will need sedation for MRI as he previously refused due to claustrophobia. Will resume RT outpatient pending hospital disposition. Cont decadron and pain management.
--- NOTE | 2017-09-29 09:08 | PN ---
Progress Note (short form) - Note Progress Note: NEUROSURGERY Wants to go home H/o stage IV adenocarcinoma of lung s/p ongoing immunotherapy with mets to L cerebellum (s/p RT), T and LS spine (undergoing RT) and adrenals, pancytopenia , hypothyroidism, c/o right sided mid back pain x 1 week. He has been treated with RT for spinal mets. Unable to stand up secondary to pain but better today. Last RT session was on Wednesday. Pain worse with getting up. No leg weakness, numbness, tingling. No B/B dysfunction. Stated that he had MRI last week in "[place]" but no report/image available. Pain much better today on duragesic patch and can ambulate independently. PE: AF,VSS HEENT- NC/AT; Neck- supple; Cor- RRR; Lungs- CTA B; Abd- benign, + BS; Ext- no sign of DVT CN- intact; Motor- 5/5 including R IP Sensation- intact LT, decreased distal vibration; DTR- 1+, no LTS; Gait- stable; cerebellar- mild tremor, intact FTN CT T/LS spine (08/2017): L T10 vertebral met with extension into T9-10 neuroforamen, no cord compression or impingement; degenerativge spondylolisthesis L3-4 and L5-S1; sacral S1-[address] (08/2017): stable R cerebellar stroke, stable L cerebellar met previously radiated Multifocal mets from lung adenoCA Repeat MRI T/LS spine MRI with harleen pending Surgery not generally indicated for extensive metastatic disease deepthi pt with no neurological deficits Rad onc f/u Pain better on duragesic patch
--- NOTE | 2017-09-29 09:16 | PN ---
Progress Note (short form) - Note Progress Note: Medical coverage for Dr. Reyes Subjective: The patient was seen and examined at the bedside, he states he is feeling better and would like to be discharged Current Medications Generic Name Dose Route Start Last Admin Trade Name Freq PRN Reason Stop Dose Admin Acetylcysteine 20 mg 09/28/17 21:15 09/29/17 06:44 Mucomyst 20 Oral / Inh Use Only* PO Not Given Q6HPO MARC Albuterol/Ipratropium 1 amp 09/28/17 13:43 Duoneb - NEB Q6H PRN SHORTNESS OF BREATH Dexamethasone Sodium Phosphate 4 mg 09/28/17 10:00 09/29/17 03:50 Decadron Injection - IVPUSH 4 mg Q8H-IV MARC Administration Diazepam 2 mg 09/29/17 09:21 Valium - PO 09/29/17 09:22 ONCE ONE Docusate Sodium 100 mg 09/28/17 09:00 09/29/17 06:44 Colace - PO 100 mg TID MARC Administration Fentanyl 1 patch 09/28/17 16:00 09/28/17 16:45 Duragesic 25mcg Patch - TD 10/05/17 13:25 1 patch Q72H MARC Administration Folic Acid 1 mg 09/28/17 10:00 09/28/17 09:09 Folic Acid - PO 1 mg DAILY MARC Administration Heparin Sodium (Porcine) 5,000 unit 09/28/17 10:00 09/28/17 23:09 Heparin - SQ 5,000 unit BID MARC Administration Levothyroxine Sodium 100 mcg 09/28/17 07:00 09/29/17 06:44 Synthroid - PO 100 mcg DAILY@0700 MARC Administration Lidocaine 1 patch 09/28/17 10:00 09/28/17 09:09 Lidoderm Patch - TP 1 patch DAILY MARC Administration Lidocaine/Aluminum/Magnesium/Simeth 5 ml 09/28/17 10:00 09/29/17 06:44 Magic Mouthwash *Sjr Formula* - MM 5 ml Q6HPO MARC Administration Magnesium Oxide 400 mg 09/28/17 10:00 09/28/17 23:10 Mag-Ox - PO 400 mg BID MARC Administration Mirtazapine 15 mg 09/28/17 22:00 09/28/17 23:10 Remeron - PO 15 mg HS MARC Administration Miscellaneous 1 each 09/28/17 22:00 09/28/17 23:09 Lidoderm Patch Removal MC 1 each DAILY@2200 MARC Administration Miscellaneous 1 each 09/28/17 13:24 Duragesic Patch Waste MC PRN PRN PAIN Nystatin 500,000 unit 09/28/17 10:00 09/29/17 06:44 Mycolog - PO 500,000 unit TID MARC Administration Oxycodone HCl 15 mg 09/28/17 08:56 09/29/17 05:00 Roxicodone - PO 15 mg Q6H PRN Administration PAIN Objective: Vital Signs Period Temp Pulse Resp BP Sys/Brandon Pulse Ox Last 24 Hr 97.8 F-98.7 F 85-102 18-18 119-139/59-94 95-99 Physical Exam: General: NAD, A&Ox3 Lungs: CTA bilaterally Heart: RRR, S1S2 Abd: Soft, non-tender, non-distended Ext: Warm, well-perfused Neuro: CN 2-12 intact CBCD WBC 14.0 K/mm3 (4.0-10.0) H 09/29/17 06:15 RBC 3.72 M/mm3 (4.00-5.60) L 09/29/17 06:15 Hgb 8.0 GM/dL (11.7-16.9) L 09/29/17 06:15 Hct 26.2 % (35.4-49) L 09/29/17 06:15 MCV 70.3 fl (80-96) L 09/29/17 06:15 MCHC 30.4 g/dl (32.0-35.9) L 09/29/17 06:15 RDW 18.4 % (11.9-15.9) H 09/29/17 06:15 Plt Count 106 K/MM3 (134-434) L 09/29/17 06:15 MPV 8.4 fl (7.5-11.1) 09/29/17 06:15 CMP Sodium 140 mmol/L (136-145) 09/29/17 06:15 Potassium 4.0 mmol/L (3.5-5.1) 09/29/17 06:15 Chloride 100 mmol/L (98-107) 09/29/17 06:15 Carbon Dioxide 31 mmol/L (21-32) 09/29/17 06:15 Anion Gap 9 (8-16) 09/29/17 06:15 BUN 24 mg/dL (7-18) H 09/29/17 06:15 Creatinine 0.7 mg/dL (0.7-1.3) 09/29/17 06:15 Creat Clearance w eGFR > 60 (>60) 09/29/17 06:15 Random Glucose 88 mg/dL (74-106) 09/29/17 06:15 Calcium 8.5 mg/dL (8.5-10.1) 09/29/17 06:15 Total Bilirubin 0.2 mg/dL (0.2-1.0) D 09/29/17 06:15 AST 13 U/L (15-37) L 09/29/17 06:15 ALT 18 U/L (12-78) 09/29/17 06:15 Alkaline Phosphatase 105 U/L (45-117) 09/29/17 06:15 Total Protein 5.7 g/dl (6.4-8.2) L 09/29/17 06:15 Albumin 2.2 g/dl (3.4-5.0) L 09/29/17 06:15 Assessment: This is a 51 year old male with PMHx of Lung cancer with mets of brain, bone, liver, spine (s/p radiation, immunotherapy), COPD, anemia, pancytopenia, hypothyroidism, who presented to the ED with worsening back pain. Plan: 1) Acute on chronic back pain 2/2 spinal mets - Missed several RT sessions last week and when he arrived on Wednesday for RT was sent to ED for worsening pain - Awaiting MRI lumbar and thoracic to evaluate for progression of disease - Continue Decadron - Continue Fentanyl patch for pain - Continue Oxycodone prn for breakthrough pain - Consider adding Gabapentin, however will hold off now as patient reporting no pain since addition of patch - Appreciate pain management - Appreciate oncology consult - Appreciate radiation therapy consult - Appreciate neuro surgery consult 2) Metastatic lung cancer - Management as above 3) Chronic anemia - 2/2 cancer - Monitor H/H - Transfuse if Hgb <8 4) COPD - No evidence of acute exacerbation at this time - O2 via nc prn (patient has O2 at home but doesn't use it) - Duoneb prn 5) Hypothyroidism - Continue synthroid 6) F/E/N: - Monitor electrolytes - Regular diet 7) Prophylaxis: - OOB ambulating - Heparin 5,000u sq tid 8) Dispo: - Requires continued inpatient care CODE STATUS: FULL CODE Visit type - Emergency Visit Emergency Visit: Yes ED Registration Date: 09/27/17 Care time: The patient presented to the Emergency Department on the above date and was hospitalized for further evaluation of their emergent condition. - New Patient This patient is new to me today: Yes Date on this admission: 09/29/17 - Critical Care Critical Care patient: No
[2017-09-29] MEDS ORDERED: PT OWN MED DRAWER 7, Y5N ONE ×2 (09:20→11:02)
[2017-09-29] MEDS ORDERED: diazePAM 2 MG TABLET PO SCH (09:21)
[2017-09-29] MEDS: LIDOCAINE 5% TOPICAL PATCH TP SCH (09:31)
[2017-09-29] MEDS: FOLIC ACID 1 MG TABLET (FP) PO SCH (09:32)
[2017-09-29] MEDS: HEPARIN NA (PORCINE) 5,000 UNITS/ML 1ML VIAL SQ SCH ×3 (09:32→21:38)
[2017-09-29] MEDS: MAGNESIUM OXIDE 400 MG TABLET (FP) PO SCH ×2 (09:32→21:38)
[2017-09-29] MEDS ORDERED: PORTA CATH FLUSH 10 ML IVPUSH ONE (10:48)
--- NOTE | 2017-09-29 12:24 | PN ---
Progress Note (short form) - Note Progress Note: Patient seen and examined Pain improved he said he walked all by himself to the cafeteria and returned back with no issues O/E HEENT: SILVINO, EOM Intact Cor: RSR, No murmurs, No gallops Lungs: scattered rhonchi and bronchial breath sounds Abd: Soft, Normal bowel sounds, No organomegaly Ext:No significant edema, clubbing Temp Pulse Resp BP Pulse Ox 98.0 F 85 18 139/59 95 09/29/17 09:00 09/29/17 09:00 09/29/17 09:00 09/29/17 09:00 09/28/17 21:00 CBC, BMP 09/29/17 06:15 09/29/17 06:15 Current Medications Generic Name Dose Route Start Last Admin Trade Name Freq PRN Reason Stop Dose Admin Acetylcysteine 20 mg 09/29/17 12:00 Mucomyst 20 Oral / Inh Use Only* PO Q6HPO MARC Albuterol/Ipratropium 1 amp 09/28/17 13:43 Duoneb - NEB Q6H PRN SHORTNESS OF BREATH Dexamethasone Sodium Phosphate 4 mg 09/28/17 10:00 09/29/17 09:32 Decadron Injection - IVPUSH 4 mg Q8H-IV MARC Administration Diazepam 2 mg 09/29/17 09:21 Valium - PO 09/29/17 15:00 [employer] MARC Docusate Sodium 100 mg 09/28/17 09:00 09/29/17 06:44 Colace - PO 100 mg TID MARC Administration Fentanyl 1 patch 09/28/17 16:00 09/28/17 16:45 Duragesic 25mcg Patch - TD 10/05/17 13:25 1 patch Q72H MARC Administration Folic Acid 1 mg 09/28/17 10:00 09/29/17 09:32 Folic Acid - PO 1 mg DAILY MARC Administration Heparin Sodium (Porcine) 5,000 unit 09/29/17 14:00 Heparin - SQ TID MARC Levothyroxine Sodium 100 mcg 09/28/17 07:00 09/29/17 06:44 Synthroid - PO 100 mcg DAILY@0700 MARC Administration Lidocaine 1 patch 09/28/17 10:00 09/29/17 09:31 Lidoderm Patch - TP 1 patch DAILY MARC Administration Lidocaine/Aluminum/Magnesium/Simeth 5 ml 09/28/17 10:00 09/29/17 12:13 Magic Mouthwash *Sjr Formula* - MM Not Given Q6HPO MARC Magnesium Oxide 400 mg 09/28/17 10:00 09/29/17 09:32 Mag-Ox - PO 400 mg BID MARC Administration Mirtazapine 15 mg 09/28/17 22:00 09/28/17 23:10 Remeron - PO 15 mg HS MARC Administration Miscellaneous 1 each 09/28/17 22:00 09/28/17 23:09 Lidoderm Patch Removal MC 1 each DAILY@2200 MARC Administration Miscellaneous 1 each 09/28/17 13:24 Duragesic Patch Waste MC PRN PRN PAIN Nystatin 500,000 unit 09/28/17 10:00 09/29/17 06:44 Mycolog - PO 500,000 unit TID MARC Administration Oxycodone HCl 15 mg 09/28/17 08:56 09/29/17 11:06 Roxicodone - PO 15 mg Q6H PRN Administration PAIN Lung ca- mets to brain, bone, liver, spine back pain on RT -appreciate all consults involved -thrombocytopenia likely post RT -c/w Dex -for MRI -c/w current pain management. -pt in agreement with the plan
[2017-09-29] MEDS ORDERED: diazePAM 2 MG TABLET PO ONE (17:45)
[2017-09-29] MEDS: MAG HYDROX/AL HYDROX/SIMETH 30 ML UNIT-DOSE CUP PO PRN ×2 (17:48→23:46)
[2017-09-29] MEDS: ACETYLCYSTEINE 20% 200MG/ML 4 ML VIAL *FOR ORAL / INH USE ONLY NEB SCH (18:52)
[2017-09-29] MEDS: ALBUTEROL SO4 0.083% IH SOL 2.5 MG/3 ML VIAL.NEB. NEB SCH (18:52)
[2017-09-29] MEDS: MIRTAZAPINE 15 MG TABLET (FP) PO SCH (21:38)
[2017-09-29] MEDS: LIDOCAINE PATCH REMOVAL MC SCH (21:39)
[2017-09-30] MEDS: MAG HYDROX/ALH/SMC/DPHA/LIDO 240 ML MOUTHWASH MM SCH ×4 (00:34→18:58)
[2017-09-30] MEDS: ACETYLCYSTEINE 20% 200MG/ML 4 ML VIAL *FOR ORAL / INH USE ONLY NEB SCH ×5 (00:45→23:18)
[2017-09-30] MEDS: ALBUTEROL SO4 0.083% IH SOL 2.5 MG/3 ML VIAL.NEB. NEB SCH ×5 (00:46→23:18)
[2017-09-30] MEDS: DEXAMETHASONE SOD PHOSPHATE 4 MG/1 ML VIAL IVPUSH SCH ×3 (02:00→18:57)
[2017-09-30] MEDS: NYSTATIN 500,000 UNITS TABLET PO SCH ×3 (06:35→21:48)
[2017-09-30] MEDS: HEPARIN NA (PORCINE) 5,000 UNITS/ML 1ML VIAL SQ SCH ×3 (06:36→21:46)
[2017-09-30] MEDS: oxyCODONE HCL 5 MG TABLET PO PRN ×3 (06:36→19:01)
[2017-09-30] MEDS: LEVOTHYROXINE NA 100 MCG TABLET (FP) PO SCH (06:37)
[2017-09-30] MEDS: DOCUSATE SODIUM 100 MG CAPSULE (FP) PO SCH ×3 (06:37→21:46)
--- NOTE | 2017-09-30 08:47 | PN ---
Progress Note (short form) - Note Progress Note: NEUROSURGERY Ambulating independently Pain better overall on duragesic patch, though still with R sided paraspinal/ rib pain last night PE: AF, VSS HEENT- NC/AT; Neck- supple; Cor- RRR; Lungs- CTA B; Abd- benign, + BS; Ext- no sign of DVT CN- intact; Motor- 5/5 including R IP Sensation- intact LT, decreased distal vibration; DTR- 1+, no LTS; Gait- stable; cerebellar- mild tremor, intact FTN CT T/LS spine (08/2017): L T10 vertebral met with extension into T9-10 neuroforamen, no cord compression or impingement; degenerativge spondylolisthesis L3-4 and L5-S1; sacral S1-[address] (08/2017): stable R cerebellar stroke, stable L cerebellar met previously radiated Multifocal mets from lung adenoCA Repeat MRI T/LS spine MRI with harleen pending (port access ? for iv contrast) Rad onc f/u and completion treatment to T9-11 spine/rib (05/03 remaining reportedly)
[2017-09-30] MEDS ORDERED: diazePAM 5 MG TABLET PO ONE ×2 (09:00→13:30)
[2017-09-30 10:03] LABS: MCH 21.6 pg (25.7-33.7); MCHC 30.6 g/dl (32.0-35.9); MEAN CELL VOLUME 70.7 fl (80-96); MEAN PLT VOLUME 7.9 fl (7.5-11.1); PLATELET COUNT 108 K/MM3 (134-434); RDW 18.3 % (11.9-15.9); WHITE BLOOD COUNT 13.6 K/mm3 (4.0-10.0)
[2017-09-30] MEDS: MAG HYDROX/AL HYDROX/SIMETH 30 ML UNIT-DOSE CUP PO PRN (10:03)
[2017-09-30 10:57] LABS: ALBUMIN 2.3 g/dl (3.4-5.0); ANION GAP 9 (8-16); CO2 29 mmol/L (21-32); GLUCOSE,RANDOM 117 mg/dL (74-106); MAGNESIUM 1.5 mg/dL (1.8-2.4)
[2017-09-30 11:00] LABS: ALK PHOS 112 U/L (45-117); BILIRUBIN,TOTAL 0.4 mg/dL (0.2-1.0); CREATININE 0.9 mg/dL (0.7-1.3); SGOT/AST 11 U/L (15-37); SGPT/ALT 20 U/L (12-78); TOT PROT 5.7 g/dl (6.4-8.2)
[2017-09-30] MEDS: LIDOCAINE 5% TOPICAL PATCH TP SCH (11:00)
[2017-09-30] MEDS: FOLIC ACID 1 MG TABLET (FP) PO SCH (11:00)
[2017-09-30] MEDS: MAGNESIUM OXIDE 400 MG TABLET (FP) PO SCH ×2 (11:00→21:48)
[2017-09-30] MEDS ORDERED: PT OWN MED DRAWER 7, Y5N ONE ×4 (12:27→20:27)
[2017-09-30] MEDS: LIDOCAINE PATCH REMOVAL MC SCH (21:47)
[2017-09-30] MEDS: MIRTAZAPINE 15 MG TABLET (FP) PO SCH (21:48)
--- NOTE | 2017-09-30 23:22 | PN ---
Progress Note, Physician - Current Medication List Current Medications: Active Medications Acetylcysteine (Mucomyst 20 Oral / Inh Use Only*) 200 mg NEB QIDR [facility] Last Admin: 09/30/17 23:18 Dose: Not Given Al Hydroxide/Mg Hydroxide (Mylanta Oral Suspension -) 30 ml PO Q6H PRN PRN Reason: DYSPEPSIA Last Admin: 09/30/17 10:03 Dose: 30 ml Albuterol Sulfate (Ventolin 0.083% Nebulizer Soln -) 1 amp NEB QIDR [facility] Last Admin: 09/30/17 23:18 Dose: Not Given Dexamethasone Sodium Phosphate (Decadron Injection -) 4 mg IVPUSH Q8H-IV [facility] Last Admin: 09/30/17 18:57 Dose: 4 mg Docusate Sodium (Colace -) 100 mg PO TID [facility] Last Admin: 09/30/17 21:46 Dose: 100 mg Fentanyl (Duragesic 25mcg Patch -) 1 patch TD Q72H [facility] Stop: 10/05/17 13:25 Last Admin: 09/28/17 16:45 Dose: 1 patch Folic Acid (Folic Acid -) 1 mg PO DAILY [facility] Last Admin: 09/30/17 11:00 Dose: 1 mg Heparin Sodium (Porcine) (Heparin -) 5,000 unit SQ TID [facility] Last Admin: 09/30/17 21:46 Dose: 5,000 unit Levothyroxine Sodium (Synthroid -) 100 mcg PO DAILY@0700 [facility] Last Admin: 09/30/17 06:37 Dose: 100 mcg Lidocaine (Lidoderm Patch -) 1 patch TP DAILY [facility] Last Admin: 09/30/17 11:00 Dose: 1 patch Lidocaine/Aluminum/Magnesium/Simeth (Magic Mouthwash *Sjr Formula* -) 5 ml MM Q6HPO [facility] Last Admin: 09/30/17 18:58 Dose: Not Given Magnesium Oxide (Mag-Ox -) 400 mg PO BID [facility] Last Admin: 09/30/17 21:48 Dose: 400 mg Mirtazapine (Remeron -) 15 mg PO HS [facility] Last Admin: 09/30/17 21:48 Dose: 15 mg Miscellaneous (Lidoderm Patch Removal) 1 each MC DAILY@2200 [facility] Last Admin: 09/30/17 21:47 Dose: 1 each Miscellaneous (Duragesic Patch Waste) 1 each MC PRN PRN PRN Reason: PAIN Nystatin (Mycolog -) 500,000 unit PO TID [facility] Last Admin: 09/30/17 21:48 Dose: 500,000 unit Oxycodone HCl (Roxicodone -) 15 mg PO Q6H PRN PRN Reason: PAIN Last Admin: 09/30/17 19:01 Dose: 15 mg - Objective Vital Signs: Vital Signs Temperature 97.8 F 09/30/17 18:05 Pulse Rate 80 09/30/17 18:05 Respiratory Rate 24 09/30/17 20:40 Blood Pressure 133/89 09/30/17 18:05 O2 Sat by Pulse Oximetry (%) 95 09/30/17 20:40 Labs: CBC, BMP 09/30/17 09:00 09/30/17 09:00
[2017-10-01] MEDS: MAG HYDROX/ALH/SMC/DPHA/LIDO 240 ML MOUTHWASH MM SCH ×3 (00:15→11:49)
[2017-10-01] MEDS: oxyCODONE HCL 5 MG TABLET PO PRN ×2 (00:53→06:45)
[2017-10-01] MEDS: DEXAMETHASONE SOD PHOSPHATE 4 MG/1 ML VIAL IVPUSH SCH ×2 (01:02→10:19)
[2017-10-01] MEDS: ALBUTEROL SO4 0.083% IH SOL 2.5 MG/3 ML VIAL.NEB. NEB SCH ×2 (06:15→11:00)
[2017-10-01] MEDS: ACETYLCYSTEINE 20% 200MG/ML 4 ML VIAL *FOR ORAL / INH USE ONLY NEB SCH ×2 (06:15→11:00)
[2017-10-01] MEDS: DOCUSATE SODIUM 100 MG CAPSULE (FP) PO SCH (06:43)
[2017-10-01] MEDS: NYSTATIN 500,000 UNITS TABLET PO SCH (06:43)
[2017-10-01] MEDS: LEVOTHYROXINE NA 100 MCG TABLET (FP) PO SCH (06:44)
[2017-10-01] MEDS: HEPARIN NA (PORCINE) 5,000 UNITS/ML 1ML VIAL SQ SCH (06:44)
[2017-10-01 07:16] VITALS: BP 140/87; PULSE 71; TEMP 98.2
--- NOTE | 2017-10-01 08:35 | PN ---
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
[2017-10-01] MEDS: MAGNESIUM OXIDE 400 MG TABLET (FP) PO SCH (10:19)
[2017-10-01] MEDS: LIDOCAINE 5% TOPICAL PATCH TP SCH (10:19)
[2017-10-01] MEDS: FOLIC ACID 1 MG TABLET (FP) PO SCH (10:19)
--- NOTE | 2017-10-01 10:50 | PN ---
Progress Note (short form) - Note Progress Note: Patient seen and examined Pain improved DID Not get the MRI as he is claustrophobic. O/E HEENT: SILVINO, EOM Intact Cor: RSR, No murmurs, No gallops Lungs: scattered rhonchi and bronchial breath sounds Abd: Soft, Normal bowel sounds, No organomegaly Ext:No significant edema, clubbing Last Vital Signs Temp Pulse Resp BP Pulse Ox 98.2 F 71 18 140/87 98 10/01/17 06:00 10/01/17 06:00 10/01/17 09:00 10/01/17 06:00 10/01/17 09:00 CBC, BMP 09/30/17 09:00 09/30/17 09:00 Current Medications Generic Name Dose Route Start Last Admin Trade Name Freq PRN Reason Stop Dose Admin Acetylcysteine 200 mg 09/29/17 18:00 10/01/17 06:15 Mucomyst 20 Oral / Inh Use Only* NEB Not Given QIDR [facility] Al Hydroxide/Mg Hydroxide 30 ml 09/29/17 14:49 09/30/17 10:03 Mylanta Oral Suspension - PO 30 ml Q6H PRN Administration DYSPEPSIA Albuterol Sulfate 1 amp 09/29/17 15:00 10/01/17 06:15 Ventolin 0.083% Nebulizer Soln - NEB 1 amp QIDR [facility] Administration Dexamethasone Sodium Phosphate 4 mg 09/28/17 10:00 10/01/17 10:19 Decadron Injection - IVPUSH 4 mg Q8H-IV [facility] Administration Docusate Sodium 100 mg 09/28/17 09:00 10/01/17 06:43 Colace - PO 100 mg TID [facility] Administration Fentanyl 1 patch 09/28/17 16:00 09/28/17 16:45 Duragesic 25mcg Patch - TD 10/05/17 13:25 1 patch Q72H [facility] Administration Folic Acid 1 mg 09/28/17 10:00 10/01/17 10:19 Folic Acid - PO 1 mg DAILY [facility] Administration Heparin Sodium (Porcine) 5,000 unit 09/29/17 14:00 10/01/17 06:44 Heparin - SQ Not Given TID [facility] Levothyroxine Sodium 100 mcg 09/28/17 07:00 10/01/17 06:44 Synthroid - PO 100 mcg DAILY@0700 [facility] Administration Lidocaine 1 patch 09/28/17 10:00 10/01/17 10:19 Lidoderm Patch - TP 1 patch DAILY [facility] Administration Lidocaine/Aluminum/Magnesium/Simeth 5 ml 09/28/17 10:00 10/01/17 06:41 Magic Mouthwash *Sjr Formula* - MM Not Given Q6HPO [facility] Magnesium Oxide 400 mg 09/28/17 10:00 10/01/17 10:19 Mag-Ox - PO 400 mg BID [facility] Administration Mirtazapine 15 mg 09/28/17 22:00 09/30/17 21:48 Remeron - PO 15 mg HS [facility] Administration Miscellaneous 1 each 09/28/17 22:00 09/30/17 21:47 Lidoderm Patch Removal MC 1 each DAILY@2200 [facility] Administration Miscellaneous 1 each 09/28/17 13:24 Duragesic Patch Waste [facility] PRN PRN PAIN Nystatin 500,000 unit 09/28/17 10:00 10/01/17 06:43 Mycolog - PO 500,000 unit TID [facility] Administration Lung ca- mets to brain, bone, liver, spine back pain on RT -appreciate all consults involved -c/w Dex and pain control -for OP MRI -f/u with [facility] as an OutPt, he is aware -c/w current pain management. -for d/c planning
[2017-10-01] MEDS ORDERED: PT OWN MED DRAWER 7, Y5N ONE ×2 (11:43→11:48)
== END 2017-10-01 11:59 | disposition home or self-care (01) | DRG 343 ==
LOC: JER 19:52 → JERBED 22:47 → J5S 09-28 00:34
PROVIDERS: ADMIT Internal Medicine; ATTEND Internal Medicine
DX: C79.51 Secondary malignant neoplasm of bone (principal); C34.90 Malignant neoplasm of unspecified part of unspecified bronchus or lung; C78.7 Secondary malignant neoplasm of liver and intrahepatic bile duct; C79.31 Secondary malignant neoplasm of brain; E03.9 Hypothyroidism, unspecified; D64.9 Anemia, unspecified; J44.9 Chronic obstructive pulmonary disease, unspecified; F17.210 Nicotine dependence, cigarettes, uncomplicated; R00.0 Tachycardia, unspecified; D69.6 Thrombocytopenia, unspecified; D72.829 Elevated white blood cell count, unspecified
CPT/HCPCS: 36415; 80053; 83735; 85025; 85027; 87040; 94640; 99282-25; J1644

== ENCOUNTER 2017-10-07 16:58 | Inpatient (IN) | payer OTHER ==
--- NOTE | 2017-10-07 17:46 | PDOC ---
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 Patient reports mid thoracic back pain, sharp, and unremitting in character beginning this AM. Denies loss of bowel/bladder function or urinary retention. Denies back trauma or fall. Patient denies weakness, but pain aggravated with ambulation, movement, and pressure. Denies N/V, fevers/chills, diarrhea constipation, abdominal pain, chest pain, SOB, lightheadedness, vertigo. Patient recent admission (09/27-10/01 ). Pain refractory to home regimen Fentanyl 25 mcg patch, Morphine [address] Spine ( 09/09/17) reveals lytic metastasis within the left half of the T10 vertebral body extending into the left pedicle with ventral epidural extension of neoplasm measuring up proximally 3 mm in thickness and extending into the left T9-T10 neural foramen, partially surrounding the exiting left T9 nerve root. Pathologic compression fracture of the left half of T10 with mild loss of height. Lytic metastasis within the right S1 and S2 vertebra with enhancing neoplasm surrounding the exiting right S1 nerve root. Ill-defined lucent lesion in the right half of the sacral body is suspicious for additional metastasis. Correlate with PET/CT to better assess for extent of lytic osseous metastasis. Patient was scheduled to have outpatient MRI, but refused d/t claustrophobia. Patient not on hospice. Past History - Past Medical History Allergies/Adverse Reactions: Allergies Allergy/AdvReac Type Severity Reaction Status Date / Time No Known Allergies Allergy Verified 09/27/17 19:59 Home Medications: Ambulatory Orders Levothyroxine [Synthroid -] 100 mcg PO DAILY 03/10/17 Magnesium Oxide 400 mg PO BID 03/10/17 Omeprazole 20 mg PO BID 03/10/17 Morphine Sulfate [Morphine Sulfate ER] 15 mg PO TID 09/05/17 Oxycodone HCl/Acetaminophen [Oxycodon-Acetaminophen 7.5-300] 2 each PO DAILY 10/10 Dexamethasone [Decadron -] 4 mg PO Q6H #120 tablet 09/10/17 Folic Acid - 1 mg PO DAILY #30 tablet 09/10/17 Mirtazapine [Remeron -] 15 mg PO HS tablet 09/10/17 Pantoprazole Sodium [Protonix -] 20 mg PO BID tablet.ec 09/10/17 Lidocaine 5% Patch [Lidoderm -] 1 patch TP DAILY #7 patch 09/27/17 Gabapentin [Neurontin] 100 mg PO TID #90 capsule 10/01/17 Anemia: Yes Cancer: Yes (LUNG ADENOCARCINOMA,Start Chemo current radiation tx) Cardiac Disorders: No CVA: No COPD: Yes CHF: No Dementia: No Diabetes: No GI Disorders: No HTN: No Hypercholesterolemia: No Liver Disease: No Seizures: No Thyroid Disease: Yes (hypothyroid) - Surgical History Abdominal Surgery: No Appendectomy: No Cardiac Surgery: No Cholecystectomy: No Lung Surgery: Yes (lung biopsy) Neurologic Surgery: No Orthopedic Surgery: No - Immunization History Immunization Up to Date: Yes - Suicide/Smoking/Psychosocial Hx Smoking Status: Yes Smoking History: Current every day smoker Have you smoked in the past 12 months: Yes Number of Cigarettes Smoked Daily: 4 If you are a former smoker, when did you quit?: 1 wk ago Information on smoking cessation initiated: No 'Breaking Loose' booklet given: 11/09/16 Hx Alcohol Use: No Drug/Substance Use Hx: No Substance Use Type: None Hx Substance Use Treatment: No Review of Systems - Review of Systems Comments:: 10/07/17 18:22 GENERAL/CONSTITUTIONAL: No fever or chills. No weakness. HEAD, EYES, EARS, NOSE AND THROAT: No change in vision. No ear pain or discharge. No sore throat.- CARDIOVASCULAR: No chest pain or shortness of breath RESPIRATORY: No cough, wheezing, or hemoptysis. GASTROINTESTINAL: No nausea, vomiting, diarrhea or constipation. GENITOURINARY: No dysuria, frequency, or change in urination. MUSCULOSKELETAL: + Back pain. No joint or muscle swelling or pain. No neck pain. SKIN: No rash NEUROLOGIC: No headache, vertigo, loss of consciousness, or change in strength/ sensation. ENDOCRINE: No increased thirst. No abnormal weight change HEMATOLOGIC/LYMPHATIC: No anemia, easy bleeding, or history of blood clots. ALLERGIC/IMMUNOLOGIC: No hives or skin allergy. *Physical Exam - Vital Signs Last Vital Signs Temp Pulse Resp BP Pulse Ox 98.2 F 88 25 H 107/59 91 L 10/07/17 17:25 10/07/17 17:25 10/07/17 17:25 10/07/17 17:25 10/07/17 17:25 - Physical Exam Comments: 10/07/17 18:22 GENERAL: Awake, alert, and fully oriented, in no acute distress HEAD: No signs of trauma, normocephalic, atraumatic EYES: PERRLA, EOMI, sclera anicteric, conjunctiva clear ENT: Auricles normal inspection, hearing grossly normal, nares patent, oropharynx clear without exudates. Moist mucosa NECK: Normal ROM, supple, no lymphadenopathy, JVD, or masses BACK: Positive mid thoracic ttp. LUNGS: No distress, speaks full sentences, clear to auscultation bilaterally HEART: Regular rate and rhythm, normal S1 and S2, no murmurs, rubs or gallops, peripheral pulses normal and equal bilaterally. EXTREMITIES : Normal inspection, Normal range of motion, no edema. No clubbing or cyanosis. NEUROLOGICAL: Cranial nerves II through XII grossly intact. Normal speech, normal gait, no focal sensorimotor deficits SKIN: Warm, Dry, normal turgor, no rashes or lesions noted. 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 Pain aggravated with ambulation, movement , and pressure. Denies back trauma or fall. Denies N/V, weakness, fevers/chills , diarrhea constipation, abdominal pain, chest pain, SOB, lightheadedness, vertigo, loss of bowel/bladder function or urinary retention. Patient recent admission (09/27-10/01). Pain refractory to home regimen Fentanyl 25 mcg patch, Morphine 15 mg PO. Physical exam reveals mid throacic ttp. Hemodynamically stable. CT Spine ( 09/09/17) reveals lytic metastasis within the left half of the T10 vertebral body. Pathologic compression fracture of the left half of T10 with mild loss of height. Lytic metastasis within the right S1 and S2 vertebra with enhancing neoplasm surrounding the exiting right S1 nerve root. Patient was scheduled to have outpatient MRI, but refused d/t claustrophobia. Patient not on hospice. Will obtain thoracic -sacral plain film to r/o acute fracture. Absent neuro deficits with low suspicion of cauda equina. Low suspicion of nephrolithiais/pyelonephritis. Patient is w/out urinary complaints or flank pain. Onc Dr. Lord. ED Course: UA Hydromorphone 1 mg IVPB, Zofran 4 mg, Lidodrem patch , NS 1 L 10/07/17 18:47 SPINE LUMBAR, SPINE SACRAL, SPINE THORACIC RAD *DC/Admit/Observation/Transfer Diagnosis at time of Disposition: Intractable back pain - Discharge Dispostion Condition at time of disposition: Stable Admit: No - Referrals - Patient Instructions - Post Discharge Activity
[2017-10-07] MEDS ORDERED: HYDROmorphone HCL CARPU-JECT 1 MG/1 ML DISP.SYRIN IVPB ONE (18:04)
[2017-10-07] MEDS ORDERED: ONDANSETRON 4 MG/2 ML VIAL IVPB ONE (18:05)
[2017-10-07] MEDS ORDERED: SODIUM CHLORIDE 1,000 ML IV STA (18:05)
[2017-10-07] MEDS ORDERED: HYDROmorphone HCL CARPU-JECT 1 MG/1 ML DISP.SYRIN ONE ×3 (18:28→23:23)
[2017-10-07] MEDS ORDERED: LIDOCAINE 5% TOPICAL PATCH TP ONE (18:33)
[2017-10-07] MEDS ORDERED: CYCLOBENZAPRINE HCL 10 MG TABLET (FP) PO ONE (19:26)
--- NOTE | 2017-10-07 19:42 | PDOC ---
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 He reports that usually the pain is onset after he receives radiation. He denies any kind of fall or injury. He denies taking any kind of muscle relaxers. He states that he was in the hospital last week for same symptoms. The patient denies chest pain, shortness of breath, headache and dizziness. Denies fever, chills, nausea, vomit, diarrhea and constipation. Denies dysuria, frequency, urgency and hematuria. Allergies: None Past surgical history: Lung biopsy Social history: Cigarette use (4-5 daily). - Physicial Exam PE: 10/07/17 20:03 GENERAL: Awake, alert, and fully oriented, in no acute distress HEAD: No signs of trauma, normocephalic, atraumatic EYES: PERRLA, EOMI, sclera anicteric, conjunctiva clear ENT: Auricles normal inspection, hearing grossly normal, nares patent, oropharynx clear without exudates. Moist mucosa NECK: Normal ROM, supple, no lymphadenopathy, JVD, or masses LUNGS: No distress, speaks full sentences, clear to auscultation bilaterally HEART: Regular rate and rhythm, normal S1 and S2, no murmurs, rubs or gallops, peripheral pulses normal and equal bilaterally. ABDOMEN: Soft, nontender, normoactive bowel sounds. No guarding, no rebound. No masses EXTREMITIES : Normal inspection, Normal range of motion, no edema. No clubbing or cyanosis. MUSCULOSKELETAL: No spinal tenderness. No paraspinal tenderness. NEUROLOGICAL: Cranial nerves II through XII grossly intact. Normal speech, normal gait, no focal sensorimotor deficits SKIN: Warm, Dry, normal turgor, no rashes or lesions noted. <Kyle Wood - Last Filed: 10/07/17 20:03> - Resident Resident Name: Chandu Gomez - ED Attending Attestation I have performed the following: I have examined & evaluated the patient, The case was reviewed & discussed with the resident, I agree w/resident's findings & plan, Exceptions are as noted - Medical Decision Making 10/07/17 19:41 a/p: 51yo male with paraspinal back pain since having radiation therapy -will give pain control -will give flexeril -obtain imaging to r/o pathologic fx given hx of metastatic ca to spine -lidoderm patch -neuro itnact, no focal deficits 10/07/17 23:04 pt moving all extremities no focal deficits 10/08/17 00:[address] Reyes who accepts the patient to her service for intractable pain <Kacey Sharma - Last Filed: 10/08/17 00:26> Discharge Disposition - Discharge Dispostion Last Admission D/C Date: 10/01/17 Admit: Yes <Kacey Sharma - Last Filed: 10/08/17 00:26> - Diagnosis Intractable back pain - Discharge Dispostion Condition at time of disposition: Stable - Referrals Referrals: Jp Rolon MD [Primary Care Provider] - - Patient Instructions - Post Discharge Activity
[2017-10-07] MEDS ORDERED: CYCLOBENZAPRINE HCL 10 MG TABLET (FP) ONE (20:22)
[2017-10-07] MEDS ORDERED: LIDOCAINE 5% TOPICAL PATCH ONE (20:22)
[2017-10-07] MEDS ORDERED: HYDROmorphone HCL CARPU-JECT 1 MG/1 ML DISP.SYRIN IVPUSH ONE ×2 (21:21→23:07)
[2017-10-07 21:42] LABS: URINE APPEARANCE CLEAR; URINE BILIRUBIN NEGATIVE (NEGATIVE); URINE BLOOD NEGATIVE (NEGATIVE); URINE COLOR YELLOW; URINE GLUCOSE (UA) NEGATIVE (NEGATIVE); URINE KETONE NEGATIVE (NEGATIVE); URINE LEUK ESTERASE NEGATIVE (NEGATIVE); URINE NITRITE NEGATIVE (NEGATIVE); URINE PROTEIN NEGATIVE (NEGATIVE); URINE UROBILINOGEN NEGATIVE mg/dL (0.2-1.0)
[2017-10-07] MEDS ORDERED: LIDOCAINE PATCH REMOVAL MC SCH (22:00)
--- NOTE | 2017-10-07 23:01 | PDOC ---
*Physical Exam - Vital Signs Last Vital Signs Temp Pulse Resp BP Pulse Ox 98.2 F 88 25 H 107/59 91 L 10/07/17 17:25 10/07/17 17:25 10/07/17 17:25 10/07/17 17:25 10/07/17 17:25 - Physical Exam Comments: Patient was signed out to me in stable condition with pain controlled. Flexural and another 1 of Dilaudid were given to control pain. Patient signed out to Dr. Young. 10/07/17 22:58 ED Treatment Course - LABORATORY CBC & Chemistry Diagram: 10/19/17 11:20 10/19/17 05:05 - ADDITIONAL ORDERS Additional order review: Laboratory Results 10/07/17 21:30 Urine Color Yellow Urine Appearance Clear Urine pH 6.0 Ur Specific [place] 1.025 Urine Protein Negative Urine Glucose (UA) Negative Urine Ketones Negative Urine Blood Negative Urine Nitrite Negative Urine Bilirubin Negative Urine Urobilinogen Negative - Medications Given in the ED: ED Medications Discontinued Medications Generic Name Dose Route Start Last Admin Trade Name Mick PRN Reason Stop Dose Admin Cyclobenzaprine HCl 10 mg 10/07/17 19:26 10/07/17 20:41 Flexeril - PO 10/07/17 19:27 10 mg ONCE ONE Administration Hydromorphone HCl 1 mg 10/07/17 18:04 10/07/17 18:31 Dilaudid Injection - IVPB 10/07/17 18:05 1 mg ONCE ONE Administration Hydromorphone HCl 1 mg 10/07/17 21:21 10/07/17 21:28 Dilaudid Injection - IVPUSH 10/07/17 21:22 1 mg ONCE ONE Administration Sodium Chloride 1,000 mls @ 1,000 mls/hr 10/07/17 18:05 10/07/17 20:41 Normal Saline - IV 10/07/17 19:04 Not Given ASDIR STA Lidocaine 1 patch 10/07/17 18:33 10/07/17 20:41 Lidoderm Patch - TP 10/07/17 18:34 1 patch ONCE ONE Administration Ondansetron HCl 4 mg 10/07/17 18:05 10/07/17 20:49 Zofran Injection IVPB 10/07/17 18:06 Not Given ONCE ONE Medical Decision Making - Medical Decision Making Spoke to Dr. Golden and she informed us to continue the Decadron and consult rad onc for therapy intpatient. PEnding Bertha call back for admission. Signed out to Dr. Sharma. 10/07/17 23:55 *DC/Admit/Observation/Transfer Diagnosis at time of Disposition: Intractable back pain - Discharge Dispostion Condition at time of disposition: Stable Admit: Yes - Referrals - Patient Instructions - Post Discharge Activity
[2017-10-08] MEDS: HYDROmorphone HCL CARPU-JECT 2 MG/1 ML DISP.SYRIN IVPB PRN ×5 (02:34→22:01)
[2017-10-08 03:21] VITALS: BMI 22.3
--- NOTE | 2017-10-08 12:15 | CONSULT ---
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 Patient reports mid thoracic back pain, sharp. Denies loss of bowel/bladder function or urinary retention. Denies back trauma or fall. Patient denies weakness, but pain aggravated with ambulation, movement, and pressure. Denies N/V, fevers/chills, diarrhea constipation, abdominal pain, chest pain, SOB, lightheadedness, vertigo. Patient recent admission (09/27-10/01). Pain refractory to home regimen Fentanyl 25 mcg patch, Morphine [address] Spine ( 09/09/17) reveals lytic metastasis within the left half of the T10 vertebral body extending into the left pedicle with ventral epidural extension of neoplasm measuring up proximally 3 mm in thickness and extending into the left T9-T10 neural foramen, partially surrounding the exiting left T9 nerve root. Pathologic compression fracture of the left half of T10 with mild loss of height. Lytic metastasis within the right S1 and S2 vertebra with enhancing neoplasm surrounding the exiting right S1 nerve root. Ill-defined lucent lesion in the right half of the sacral body is suspicious for additional metastasis. Correlate with PET/CT to better assess for extent of lytic osseous metastasis. Patient was scheduled to have outpatient MRI, but refused d/t claustrophobia. Allergies/Adverse Reactions: Allergies Allergy/AdvReac Type Severity Reaction Status Date / Time No Known Allergies Allergy Verified 09/27/17 19:59 Home Medications: Ambulatory Orders Levothyroxine [Synthroid -] 100 mcg PO DAILY 03/10/17 Magnesium Oxide 400 mg PO BID 03/10/17 Omeprazole 20 mg PO BID 03/10/17 Morphine Sulfate [Morphine Sulfate ER] 15 mg PO TID 09/05/17 Oxycodone HCl/Acetaminophen [Oxycodon-Acetaminophen 7.5-300] 2 each PO DAILY 10/10 Dexamethasone [Decadron -] 4 mg PO Q6H #120 tablet 09/10/17 Folic Acid - 1 mg PO DAILY #30 tablet 09/10/17 Mirtazapine [Remeron -] 15 mg PO HS tablet 09/10/17 Pantoprazole Sodium [Protonix -] 20 mg PO BID tablet.ec 09/10/17 Lidocaine 5% Patch [Lidoderm -] 1 patch TP DAILY #7 patch 09/27/17 Gabapentin [Neurontin] 100 mg PO TID #90 capsule 10/01/17 PMH Anemia: Yes Cancer: Yes (LUNG ADENOCARCINOMA,Start Chemo current radiation tx) COPD: Yes Thyroid Disease: Yes (hypothyroid) - Surgical History lung biopsy - Immunization History Immunization Up to Date: Yes - Suicide/Smoking/Psychosocial Hx Smoking Status: Yes Smoking History: Current every day smoker - Vital Signs Last Vital Signs Temp Pulse Resp BP Pulse Ox 98.2 F 88 25 H 107/59 91 L 10/07/17 17:25 10/07/17 17:25 10/07/17 17:25 10/07/17 17:25 10/07/17 17:25 Cor: RSR, No murmurs, No gallops Lungs: Clear to P&A Abd: Soft, Normal bowel sounds, No organomegaly Ext:No significant edema Labs/meds reviewed A/P 51 yo M with h/o COPD, hypothyroidism, and 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 Pain aggravated with ambulation, movement , and pressure. CT Spine ( 09/09/17) revealed lytic metastasis within the left half of the T10 vertebral body. Pathologic compression fracture of the left half of T10 with mild loss of height. Lytic metastasis within the right S1 and S2 vertebra with enhancing neoplasm surrounding the exiting right S1 nerve root. Patient was scheduled to have outpatient MRI, but refused d/t claustrophobia. Repeat CT scans continue decadron Rad-onc consult
[2017-10-08] MEDS: DEXAMETHASONE 4 MG TABLET (FP) PO SCH ×2 (13:14→17:31)
--- NOTE | 2017-10-08 14:12 | HP ---
Admitting History and Physical - Past Medical History [employer]: Yes: Other ([employer] mets- s/p stereotactic radiosurgery (Gamma Knife) ) Cardiovascular: Yes: Other (small pericardial effusion ) Pulmonary: Yes: Cancer, COPD, Other ([place] of lung - mets to [employer], liver, spine and adrenal ). No: O2 Dependent Renal/: Yes: Other (hyponatremia) Heme/Onc: Yes: Current Chemotherapy, Other (Pembrolizumab q 3 weeks) Musculoskeletal: Yes: Other (right rib cage pains) Endocrine: Yes: Hypothyroidism. No: Diabetes Mellitus - Smoking History Smoking history: Current every day smoker Have you smoked in the past 12 months: Yes Aproximately how many cigarettes per day: 4 If you are a former smoker, when did you quit?: 1 wk ago - Alcohol/Substance Use Hx Alcohol Use: No History of Substance Use: reports: None - Social History History of Recent Travel: No Home Medications - Allergies Allergies/Adverse Reactions: Allergies Allergy/AdvReac Type Severity Reaction Status Date / Time No Known Allergies Allergy Verified 09/27/17 19:59 - Home Medications Home Medications: Ambulatory Orders Levothyroxine [Synthroid -] 100 mcg PO DAILY 03/10/17 Magnesium Oxide 400 mg PO BID 03/10/17 Omeprazole 20 mg PO BID 03/10/17 Morphine Sulfate [Morphine Sulfate ER] 15 mg PO TID 09/05/17 Oxycodone HCl/Acetaminophen [Oxycodon-Acetaminophen 7.5-300] 2 each PO DAILY 10/10 Dexamethasone [Decadron -] 4 mg PO Q6H #120 tablet 09/10/17 Folic Acid - 1 mg PO DAILY #30 tablet 09/10/17 Mirtazapine [Remeron -] 15 mg PO HS tablet 09/10/17 Pantoprazole Sodium [Protonix -] 20 mg PO BID tablet.ec 09/10/17 Lidocaine 5% Patch [Lidoderm -] 1 patch TP DAILY #7 patch 09/27/17 Gabapentin [Neurontin] 100 mg PO TID #90 capsule 10/01/17 Physical Examination Vital Signs: Vital Signs Temperature 97.3 F L 10/08/17 09:09 Pulse Rate 103 H 10/08/17 09:09 Respiratory Rate 22 10/08/17 09:09 Blood Pressure 97/54 10/08/17 09:09 O2 Sat by Pulse Oximetry (%) 96 10/08/17 03:20
[2017-10-08] MEDS ORDERED: DEXAMETHASONE 4 MG TABLET (FP) PO SCH (14:15)
[2017-10-08] MEDS ORDERED: PT OWN MED DRAWER 7, Y5N ONE (16:32)
--- NOTE | 2017-10-08 17:50 | CONSULT ---
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 He was on high dosage of opioids for pain. Pain is mostly on right side in thoracolumbar area with no radiation . He was evaluated by Spine Surgeon. 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 No: O2 Dependent Renal/: Yes: Other (hyponatremia) Musculoskeletal: Yes: Other (right rib cage pains) Endocrine: Yes: Hypothyroidism. No: Diabetes Mellitus - Alcohol/Substance Use Hx Alcohol Use: No History of Substance Use: reports: None - Smoking History Smoking history: Current every day smoker Have you smoked in the past 12 months: Yes Aproximately how many cigarettes per day: 4 If you are a former smoker, when did you quit?: 1 wk ago - Social History History of Recent Travel: No Home Medications - Allergies Allergies/Adverse Reactions: Allergies Allergy/AdvReac Type Severity Reaction Status Date / Time No Known Allergies Allergy Verified 09/27/17 19:59 - Home Medications Home Medications: Ambulatory Orders Levothyroxine [Synthroid -] 100 mcg PO DAILY 03/10/17 Magnesium Oxide 400 mg PO BID 03/10/17 Omeprazole 20 mg PO BID 03/10/17 Morphine Sulfate [Morphine Sulfate ER] 15 mg PO TID 09/05/17 Oxycodone HCl/Acetaminophen [Oxycodon-Acetaminophen 7.5-300] 2 each PO DAILY 10/10 Dexamethasone [Decadron -] 4 mg PO Q6H #120 tablet 09/10/17 Folic Acid - 1 mg PO DAILY #30 tablet 09/10/17 Mirtazapine [Remeron -] 15 mg PO HS tablet 09/10/17 Pantoprazole Sodium [Protonix -] 20 mg PO BID tablet.ec 09/10/17 Lidocaine 5% Patch [Lidoderm -] 1 patch TP DAILY #7 patch 09/27/17 Gabapentin [Neurontin] 100 mg PO TID #90 capsule 10/01/17 Review of Systems - Review of Systems Constitutional: reports: No Symptoms Eyes: reports: No Symptoms HENT: reports: No Symptoms Neck: reports: No Symptoms Cardiovascular: reports: No Symptoms Respiratory: reports: No Symptoms Gastrointestinal: reports: No Symptoms Genitourinary: reports: No Symptoms Musculoskeletal: reports: Back Pain, Muscle Pain, Other (lower rib pain on right side) Integumentary: reports: No Symptoms Neurological: reports: No Symptoms Pain Intensity: 10 Physical Exam Vital Signs: Vital Signs Temperature 98.5 F 10/08/17 15:42 Pulse Rate 102 H 10/08/17 15:42 Respiratory Rate 22 10/08/17 15:42 Blood Pressure 97/54 10/08/17 09:09 O2 Sat by Pulse Oximetry (%) 92 L 10/08/17 09:00 Constitutional: Yes: Well Nourished Eyes: Yes: WNL HENT: Yes: WNL Neck: Yes: WNL Musculoskeletal: Yes: Back Pain, Other (Right side lower rib tenderness +) Extremities: Yes: WNL Edema: No Neurological: Yes: Alert, Oriented (Restless) Imaging - Results Cat Scan: Report Reviewed Problem List - Problems (1) Back pain Code(s): M54.9 - DORSALGIA, UNSPECIFIED Qualifiers: Back pain location: thoracic back pain Chronicity: chronic Assessment/Plan Discuss in detail and answered all his questions 1. continue current care 2.MScontin 15 mg PO TID 3. Contnue Dilaudid 4. Neurontin 300 mg PO bID please call if pain not well controlled. Thanks for your kind referral Dr. Ponce
[2017-10-08] MEDS: morphine SO4 SUSTAINED ACTING 15 MG TABLET.SA PO SCH (21:00)
[2017-10-08] MEDS: HEPARIN NA (PORCINE) 5,000 UNITS/ML 1ML VIAL SQ SCH (21:59)
[2017-10-08] MEDS ORDERED: PANTOPRAZOLE 20 MG TABLET (FP) PO SCH (22:00)
[2017-10-08] MEDS: MAGNESIUM OXIDE 400 MG TABLET (FP) PO SCH (22:00)
[2017-10-08] MEDS ORDERED: PATIENT'S OWN MEDICATION (NON-FORMULARY) (Omeprazole 20 MG) PO SCH (22:00)
[2017-10-08] MEDS: LIDOCAINE PATCH REMOVAL MC SCH (22:00)
[2017-10-08] MEDS: GABAPENTIN 100 MG CAPSULE (FP) PO SCH (22:00)
[2017-10-08] MEDS: MIRTAZAPINE 15 MG TABLET (FP) PO SCH (22:01)
--- NOTE | 2017-10-08 22:59 | PN ---
Progress Note (short form) - Note Progress Note: Radiation Oncology Full consult dictated. Readmitted for back pain poorly controlled on home analgesic regimen. He did not continue palliative RT to spinal epidural mets after he was discharged recently. Agree with CT spine to r/o progressive fx/dz. Cont decadron. Pain mgt, await pain consult.
[2017-10-09] MEDS: DEXAMETHASONE 4 MG TABLET (FP) PO SCH ×4 (02:02→17:35)
[2017-10-09] MEDS: HYDROmorphone HCL CARPU-JECT 2 MG/1 ML DISP.SYRIN IVPB PRN ×3 (02:03→21:46)
[2017-10-09] MEDS: LEVOTHYROXINE NA 100 MCG TABLET (FP) PO SCH (06:03)
[2017-10-09] MEDS: GABAPENTIN 100 MG CAPSULE (FP) PO SCH ×3 (06:03→21:42)
[2017-10-09 08:21] LABS: ALBUMIN 2.3 g/dl (3.4-5.0); ANION GAP 12 (8-16); BLOOD UREA NITROGEN 20 mg/dL (7-18); CALCIUM 8.6 mg/dL (8.5-10.1); CHLORIDE 93 mmol/L (98-107); CO2 28 mmol/L (21-32); GLUCOSE,RANDOM 103 mg/dL (74-106); SGOT/AST 33 U/L (15-37); SGPT/ALT 19 U/L (12-78); SODIUM 133 mmol/L (136-145)
[2017-10-09 08:25] LABS: ALK PHOS 112 U/L (45-117); BILIRUBIN,TOTAL 0.4 mg/dL (0.2-1.0); TOT PROT 6.2 g/dl (6.4-8.2)
[2017-10-09 08:58] LABS: BASO % 0.8 % (0-2.0); HEMATOCRIT 30.1 % (35.4-49); HEMOGLOBIN 9.1 GM/dL (11.7-16.9); LYMPH % 7.1 % (8-40); MCH 21.4 pg (25.7-33.7); MCHC 30.2 g/dl (32.0-35.9); MEAN CELL VOLUME 71.1 fl (80-96); MEAN PLT VOLUME 8.8 fl (7.5-11.1); MONO % 2.1 % (3.8-10.2); RBC 4.23 M/mm3 (4.00-5.60); WHITE BLOOD COUNT 15.5 K/mm3 (4.0-10.0)
[2017-10-09 09:04] LABS: PLATELET COUNT 24 K/MM3 (134-434)
[2017-10-09 09:05] LABS: ADD RBC MORPHOLOGY YES
[2017-10-09] MEDS ORDERED: PT OWN MED DRAWER 7, Y5N ONE ×3 (09:24→21:14)
[2017-10-09] MEDS: FOLIC ACID 1 MG TABLET (FP) PO SCH (10:04)
[2017-10-09] MEDS: LIDOCAINE 5% TOPICAL PATCH TP SCH (10:05)
[2017-10-09] MEDS: HEPARIN NA (PORCINE) 5,000 UNITS/ML 1ML VIAL SQ SCH ×2 (10:05→21:42)
[2017-10-09] MEDS: MAGNESIUM OXIDE 400 MG TABLET (FP) PO SCH ×2 (10:06→21:42)
[2017-10-09] MEDS: morphine SO4 SUSTAINED ACTING 15 MG TABLET.SA PO SCH ×2 (10:06→21:42)
[2017-10-09] MEDS: PANTOPRAZOLE 40 MG TABLET (FP) PO SCH (10:09)
[2017-10-09 10:40] LABS: MACROCYTOSIS 2+; TARGET CELLS 2+
--- NOTE | 2017-10-09 13:13 | PN ---
Progress Note (short form) - Note Progress Note: 51 yo M with h/o COPD, hypothyroidism, and adenocarcinoma with metastasis to adrenals, left cerebellum, and spine s/p chemoradiation and radiation therapy for spinal mets who presents with back pain. Patient reports mid thoracic back pain, sharp. Denies loss of bowel/bladder function or urinary retention. Denies back trauma or fall. Patient denies weakness, but pain aggravated with ambulation, movement, and pressure. Denies N/V, fevers/chills, diarrhea constipation, abdominal pain, chest pain, SOB, lightheadedness, vertigo. Patient recent admission (09/27-10/01). Pain refractory to home regimen Fentanyl 25 mcg patch, Morphine [address] Spine ( 09/09/17) reveals lytic metastasis within the left half of the T10 vertebral body extending into the left pedicle with ventral epidural extension of neoplasm measuring up proximally 3 mm in thickness and extending into the left T9-T10 neural foramen, partially surrounding the exiting left T9 nerve root. Pathologic compression fracture of the left half of T10 with mild loss of height. Lytic metastasis within the right S1 and S2 vertebra with enhancing neoplasm surrounding the exiting right S1 nerve root. Ill-defined lucent lesion in the right half of the sacral body is suspicious for additional metastasis. Correlate with PET/CT to better assess for extent of lytic osseous metastasis. Patient was scheduled to have outpatient MRI, but refused d/t claustrophobia. Overall doing ok today Allergies/Adverse Reactions: Allergies Allergy/AdvReac Type Severity Reaction Status Date / Time No Known Allergies Allergy Verified 09/27/17 19:59 - Surgical History lung biopsy - Immunization History Immunization Up to Date: Yes - Suicide/Smoking/Psychosocial Hx Smoking Status: Yes Smoking History: Current every day smoker Current Medications Generic Name Dose Route Start Last Admin Trade Name Freq PRN Reason Stop Dose Admin Dexamethasone 4 mg 10/08/17 12:30 10/09/17 12:29 Decadron - PO 4 mg Q6HPO MARC Administration Folic Acid 1 mg 10/09/17 10:00 10/09/17 10:04 Folic Acid - PO 1 mg DAILY MARC Administration Gabapentin 100 mg 10/08/17 22:00 10/09/17 06:03 Neurontin - PO 100 mg TID MARC Administration Heparin Sodium (Porcine) 5,000 unit 10/08/17 22:00 10/09/17 10:05 Heparin - SQ Not Given BID MARC Hydromorphone HCl 2 mg 10/08/17 13:38 10/09/17 08:50 Dilaudid Injection - IVPB 2 mg Q4H PRN Administration PAIN LEVEL 6-10 Levothyroxine Sodium 100 mcg 10/09/17 07:00 10/09/17 06:03 Synthroid - PO 100 mcg DAILY@0700 MARC Administration Lidocaine 1 patch 10/09/17 10:00 10/09/17 10:05 Lidoderm Patch - TP 1 patch DAILY MARC Administration Magnesium Oxide 400 mg 10/08/17 22:00 10/09/17 10:06 Mag-Ox - PO 400 mg BID MARC Administration Mirtazapine 15 mg 10/08/17 22:00 10/08/17 22:01 Remeron - PO 15 mg HS MARC Administration Miscellaneous 1 each 10/08/17 22:00 10/08/17 22:00 Lidoderm Patch Removal MC 1 each DAILY@2200 MARC Administration Morphine Sulfate 15 mg 10/08/17 22:00 10/09/17 10:06 Ms Contin - PO 15 mg BID MARC Administration Pantoprazole Sodium 40 mg 10/09/17 10:00 10/09/17 10:09 Protonix - PO 40 mg DAILY MARC Administration - Vital Signs Vital Signs Period Temp Pulse Resp BP Sys/Brandon Pulse Ox Last 24 Hr 98.1 F-98.5 F 65-108 20-22 112-115/75-90 92 Cor: RSR, No murmurs, No gallops Lungs: Clear to P&A Abd: Soft, Normal bowel sounds, No organomegaly Ext:No significant edema Labs/meds reviewed A/P 51 yo M with h/o COPD, hypothyroidism, and 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 Pain aggravated with ambulation, movement , and pressure. CT Spine ( 09/09/17) revealed lytic metastasis within the left half of the T10 vertebral body. Pathologic compression fracture of the left half of T10 with mild loss of height. Lytic metastasis within the right S1 and S2 vertebra with enhancing neoplasm surrounding the exiting right S1 nerve root. Patient was scheduled to have outpatient MRI, but refused d/t claustrophobia. Repeat CT scans continue decadron Rad-onc consult ?Thrombocytopenia0- due to prior RT. Monitor and follow
--- NOTE | 2017-10-09 17:34 | CONS ---
DATE OF CONSULTATION: 10/08/2017 REFERRING PHYSICIAN: Chantel You MD REASON FOR CONSULTATION: Intractable back pain. HISTORY OF PRESENT ILLNESS: The patient is a 51-year-old gentleman well known to our department who was diagnosed with an adenocarcinoma of the right upper lobe in 2016. He received carboplatin and Alimta with progression of disease in the lung and received palliative radiotherapy to the right chest as well as gamma knife radiosurgery to a left cerebellar metastasis. He then received Keytruda with subsequent progression of disease in the liver, adrenals, retroperitoneal nodes , and spine at T10 and sacrum associated with epidural extension with neurologic compromise and pain. He commenced radiation therapy to those regions, having received a total dose of 900 centigray in 3 of 10 planned treatments. He was then admitted for intractable pain, which improved with aggressive pain management. He refused to have an MRI to further evaluate the extent of epidural disease. He had no new neurologic symptoms and was subsequently discharged to continue his radiation therapy outpatient. However, since his last admission, he has not returned for radiation therapy, now stating that it was because his pain was poorly controlled. His last treatment was on September 24, 2017. He is now admitted for pain management. He denies changes in bowel or bladder function, numbness/tingling in the extremities, weakness in the extremities. He has the same pain in the region of the back that had bothered him before. He is requesting that the pain specialist manage his pain and does not want radiation therapy at this time. PAST MEDICAL HISTORY: Prior radiotherapy as noted, chemotherapy as noted. He has COPD, history of pericardial effusion, hypothyroidism. ALLERGIES: No known drug allergies. CURRENT MEDICATIONS: Lidoderm patch, heparin subcutaneous, Decadron 4 mg q.6 hours, Dilaudid 2 mg IV q.4 hours p.r.n. SOCIAL HISTORY: He lives in [place]. 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 He smoked a few cigarettes a day. He does not consume any alcohol at this time. FAMILY HISTORY: Noncontributory. REVIEW OF SYSTEMS: He denies weight loss or change in appetite. In addition to that noted previously, the remainder of review of systems is negative. PHYSICAL EXAMINATION General: Well appearing, lying in the hospital bed, but refuses to get out of bed due to anticipated pain. Vital signs: Temperature 98.5, blood pressure 97/54, pulse 102, respiratory rate 22. HEENT: Steroid-associated barrett facies. Otherwise, normocephalic and atraumatic. Moist mucous membranes. Anicteric sclerae. Clear oral cavity without thrush. Neck: No adenopathy. Chest: Right Mediport in place. Mild xerosis and hyperpigmentation in the upper back within the prior radiation field. Decreased breath sounds on the right. No wheezes, rales, or rhonchi. Cardiovascular: Regular. Abdomen: Soft, nontender, nondistended, with active bowel sounds. Extremities: No peripheral edema. Musculoskeletal: Tenderness in the lower thoracic spine at around T10, although examination was limited by patient's refusal. Neurologic: Nonfocal. RADIOLOGIC DATA: X-ray of the thoracolumbar spine shows mild degenerative arthritis without fracture or acute bony abnormalities. IMPRESSION: A 51-year-old gentleman with progression of metastatic pulmonary adenocarcinoma with T10 and sacral involvement of the nerve roots associated with radiculopathy. He was recently admitted for pain management but did not return to finish his radiation therapy. I spoke with the patient and discussed the possibility of progressive fracture or spinal disease and worsening epidural neurologic compromise. He refuses the MRI due to claustrophobia. He has not had an outpatient MRI, which was recommended. As such, I advised a CT of the spine, which has been ordered. I encouraged him to continue radiation therapy. He stated that he will consider proceeding with treatment once his pain is better controlled. He awaits evaluation by the pain specialist. He agreed to return for outpatient radiation therapy if he is discharged following improvement in pain control. He understands that if the CT suggests progression, further urgent management may be needed. The patient is agreeable to the CT scan as well as the Decadron. Continue his pain management and monitor for pain relief so that he can proceed with radiation therapy, which can be done as an outpatient if he is able to be discharged. Thank you for asking me to see him again. JULIÁN HULL M.D. FRED/[id number] MTDD
--- NOTE | 2017-10-09 19:46 | PN ---
Progress Note, Physician - Current Medication List Current Medications: Active Medications Dexamethasone (Decadron -) 4 mg PO Q6HPO [facility] Last Admin: 10/09/17 17:35 Dose: 4 mg Folic Acid (Folic Acid -) 1 mg PO DAILY [facility] Last Admin: 10/09/17 10:04 Dose: 1 mg Gabapentin (Neurontin -) 100 mg PO TID [facility] Last Admin: 10/09/17 14:56 Dose: 100 mg Heparin Sodium (Porcine) (Heparin -) 5,000 unit SQ BID [facility] Last Admin: 10/09/17 10:05 Dose: Not Given Hydromorphone HCl (Dilaudid Injection -) 2 mg IVPB Q4H PRN PRN Reason: PAIN LEVEL 6-10 Last Admin: 10/09/17 08:50 Dose: 2 mg Levothyroxine Sodium (Synthroid -) 100 mcg PO DAILY@0700 [facility] Last Admin: 10/09/17 06:03 Dose: 100 mcg Lidocaine (Lidoderm Patch -) 1 patch TP DAILY [facility] Last Admin: 10/09/17 10:05 Dose: 1 patch Magnesium Oxide (Mag-Ox -) 400 mg PO BID [facility] Last Admin: 10/09/17 10:06 Dose: 400 mg Mirtazapine (Remeron -) 15 mg PO HS [facility] Last Admin: 10/08/17 22:01 Dose: 15 mg Miscellaneous (Lidoderm Patch Removal) 1 each MC DAILY@2200 [facility] Last Admin: 10/08/17 22:00 Dose: 1 each Morphine Sulfate (Ms Contin -) 15 mg PO BID [facility] Last Admin: 10/09/17 10:06 Dose: 15 mg Pantoprazole Sodium (Protonix -) 40 mg PO DAILY [facility] Last Admin: 10/09/17 10:09 Dose: 40 mg - Objective Vital Signs: Vital Signs Temperature 97.5 F L 10/09/17 15:20 Pulse Rate 98 H 10/09/17 15:20 Respiratory Rate 20 10/09/17 15:20 Blood Pressure 103/84 10/09/17 15:20 O2 Sat by Pulse Oximetry (%) 96 10/09/17 09:00 Labs: CBC, BMP 10/09/17 06:00 10/09/17 06:00
[2017-10-09] MEDS: MIRTAZAPINE 15 MG TABLET (FP) PO SCH (21:42)
[2017-10-09] MEDS: LIDOCAINE PATCH REMOVAL MC SCH (21:55)
[2017-10-10] MEDS: DEXAMETHASONE 4 MG TABLET (FP) PO SCH ×5 (00:14→23:07)
[2017-10-10] MEDS: LEVOTHYROXINE NA 100 MCG TABLET (FP) PO SCH (06:24)
[2017-10-10] MEDS: GABAPENTIN 100 MG CAPSULE (FP) PO SCH ×3 (06:25→22:39)
[2017-10-10] MEDS: HYDROmorphone HCL CARPU-JECT 2 MG/1 ML DISP.SYRIN IVPB PRN ×3 (06:25→23:07)
--- NOTE | 2017-10-10 09:14 | PN ---
Progress Note (short form) - Note Progress Note: 51 yo M with h/o COPD, hypothyroidism, and adenocarcinoma with metastasis to adrenals, left cerebellum, and spine s/p chemoradiation and radiation therapy for spinal mets who presents with back pain. Patient reports mid thoracic back pain, sharp. Denies loss of bowel/bladder function or urinary retention. Denies back trauma or fall. Patient denies weakness, but pain aggravated with ambulation, movement, and pressure. Denies N/V, fevers/chills, diarrhea constipation, abdominal pain, chest pain, SOB, lightheadedness, vertigo. Patient recent admission (09/27-10/01). Pain refractory to home regimen Fentanyl 25 mcg patch, Morphine [address] Spine ( 09/09/17) reveals lytic metastasis within the left half of the T10 vertebral body extending into the left pedicle with ventral epidural extension of neoplasm measuring up proximally 3 mm in thickness and extending into the left T9-T10 neural foramen, partially surrounding the exiting left T9 nerve root. Pathologic compression fracture of the left half of T10 with mild loss of height. Lytic metastasis within the right S1 and S2 vertebra with enhancing neoplasm surrounding the exiting right S1 nerve root. Ill-defined lucent lesion in the right half of the sacral body is suspicious for additional metastasis. Correlate with PET/CT to better assess for extent of lytic osseous metastasis. Patient was scheduled to have outpatient MRI, but refused d/t claustrophobia. Overall doing ok today has bilateral elbow swelling- he says he often bangs it agianst the bed and I have advised him not to do so Active Medications Generic Name Dose Route Start Last Admin Trade Name Mick PRN Reason Stop Dose Admin Dexamethasone 4 mg 10/08/17 12:30 10/10/17 06:24 Decadron - PO 4 mg Q6HPO MARC Administration Folic Acid 1 mg 10/09/17 10:00 10/09/17 10:04 Folic Acid - PO 1 mg DAILY MARC Administration Gabapentin 100 mg 10/08/17 22:00 10/10/17 06:25 Neurontin - PO 100 mg TID MARC Administration Heparin Sodium (Porcine) 5,000 unit 10/08/17 22:00 10/09/17 21:42 Heparin - SQ Not Given BID MARC Hydromorphone HCl 2 mg 10/08/17 13:38 10/10/17 06:25 Dilaudid Injection - IVPB 2 mg Q4H PRN Administration PAIN LEVEL 6-10 Levothyroxine Sodium 100 mcg 10/09/17 07:00 10/10/17 06:24 Synthroid - PO 100 mcg DAILY@0700 MARC Administration Lidocaine 1 patch 10/09/17 10:00 10/09/17 10:05 Lidoderm Patch - TP 1 patch DAILY MARC Administration Magnesium Oxide 400 mg 10/08/17 22:00 10/09/17 21:42 Mag-Ox - PO 400 mg BID MARC Administration Mirtazapine 15 mg 10/08/17 22:00 10/09/17 21:42 Remeron - PO 15 mg HS MARC Administration Miscellaneous 1 each 10/08/17 22:00 10/09/17 21:55 Lidoderm Patch Removal MC 1 each DAILY@2200 MARC Administration Morphine Sulfate 15 mg 10/08/17 22:00 10/09/17 21:42 Ms Contin - PO 15 mg BID MARC Administration Pantoprazole Sodium 40 mg 10/09/17 10:00 10/09/17 10:09 Protonix - PO 40 mg DAILY MARC Administration - Vital Signs V Vital Signs Period Temp Pulse Resp BP Sys/Brandon Pulse Ox Last 24 Hr 97.5 F-98.2 F 65-102 20-20 103-136/74-90 95 Cor: RSR, No murmurs, No gallops Lungs: Clear to P&A Abd: Soft, Normal bowel sounds, No organomegaly Ext:No significant edema Elbows- bilateral swelling mild- ? fluid Labs/meds reviewed A/P 51 yo M with h/o COPD, hypothyroidism, and 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 Pain aggravated with ambulation, movement , and pressure. CT Spine ( 09/09/17) revealed lytic metastasis within the left half of the T10 vertebral body. Pathologic compression fracture of the left half of T10 with mild loss of height. Lytic metastasis within the right S1 and S2 vertebra with enhancing neoplasm surrounding the exiting right S1 nerve root. Patient was scheduled to have outpatient MRI, but refused d/t claustrophobia. The new CT T/L spine is showing progressive disease with increasing pathological fracture continue decadron Rad-onc consult ?Thrombocytopenia- due to prior RT, ? BM involvement ? recent chemotherapy- unclear at this time. continue to follow, may need a BM if not due to recent chemotherapy
[2017-10-10 09:51] LABS: HEMATOCRIT 28.6 % (35.4-49); HEMOGLOBIN 8.5 GM/dL (11.7-16.9); MCH 21.3 pg (25.7-33.7); MCHC 29.8 g/dl (32.0-35.9); MEAN CELL VOLUME 71.3 fl (80-96); MEAN PLT VOLUME 7.3 fl (7.5-11.1); RBC 4.01 M/mm3 (4.00-5.60); RDW 19.1 % (11.9-15.9); WHITE BLOOD COUNT 17.9 K/mm3 (4.0-10.0)
[2017-10-10] MEDS: MAGNESIUM OXIDE 400 MG TABLET (FP) PO SCH ×2 (10:09→22:39)
[2017-10-10] MEDS: morphine SO4 SUSTAINED ACTING 15 MG TABLET.SA PO SCH ×2 (10:09→22:39)
[2017-10-10] MEDS: PANTOPRAZOLE 40 MG TABLET (FP) PO SCH (10:09)
[2017-10-10] MEDS: FOLIC ACID 1 MG TABLET (FP) PO SCH (10:09)
[2017-10-10] MEDS: LIDOCAINE 5% TOPICAL PATCH TP SCH (10:10)
[2017-10-10] MEDS: HEPARIN NA (PORCINE) 5,000 UNITS/ML 1ML VIAL SQ SCH ×2 (10:10→22:35)
[2017-10-10 10:23] LABS: ANION GAP 10 (8-16); BLOOD UREA NITROGEN 28 mg/dL (7-18); CALCIUM 8.3 mg/dL (8.5-10.1); CHLORIDE 98 mmol/L (98-107); CO2 27 mmol/L (21-32); GLUCOSE,RANDOM 142 mg/dL (74-106); SODIUM 135 mmol/L (136-145)
[2017-10-10 11:15] LABS: PLATELET COUNT 21 K/MM3 (134-434)
--- NOTE | 2017-10-10 21:42 | PN ---
Progress Note, Physician History of Present Illness: Pt still w/ pain - Current Medication List Current Medications: Active Medications Dexamethasone (Decadron -) 4 mg PO Q6HPO [facility] Last Admin: 10/10/17 17:03 Dose: 4 mg Folic Acid (Folic Acid -) 1 mg PO DAILY [facility] Last Admin: 10/10/17 10:09 Dose: 1 mg Gabapentin (Neurontin -) 100 mg PO TID [facility] Last Admin: 10/10/17 13:16 Dose: 100 mg Heparin Sodium (Porcine) (Heparin -) 5,000 unit SQ BID [facility] Last Admin: 10/10/17 10:10 Dose: Not Given Hydromorphone HCl (Dilaudid Injection -) 2 mg IVPB Q4H PRN PRN Reason: PAIN LEVEL 6-10 Last Admin: 10/10/17 17:03 Dose: 2 mg Levothyroxine Sodium (Synthroid -) 100 mcg PO DAILY@0700 [facility] Last Admin: 10/10/17 06:24 Dose: 100 mcg Lidocaine (Lidoderm Patch -) 1 patch TP DAILY [facility] Last Admin: 10/10/17 10:10 Dose: 1 patch Magnesium Oxide (Mag-Ox -) 400 mg PO BID [facility] Last Admin: 10/10/17 10:09 Dose: 400 mg Mirtazapine (Remeron -) 15 mg PO HS [facility] Last Admin: 10/09/17 21:42 Dose: 15 mg Miscellaneous (Lidoderm Patch Removal) 1 each MC DAILY@2200 [facility] Last Admin: 10/09/17 21:55 Dose: 1 each Morphine Sulfate (Ms Contin -) 15 mg PO BID [facility] Last Admin: 10/10/17 10:09 Dose: 15 mg Pantoprazole Sodium (Protonix -) 40 mg PO DAILY [facility] Last Admin: 10/10/17 10:09 Dose: 40 mg - Objective Vital Signs: Vital Signs Temperature 97.6 F 10/10/17 17:34 Pulse Rate 88 10/10/17 17:34 Respiratory Rate 18 10/10/17 17:34 Blood Pressure 138/88 10/10/17 17:34 O2 Sat by Pulse Oximetry (%) 95 10/10/17 09:00 Constitutional: Yes: No Distress HENT: Yes: WNL Neck: Yes: WNL, Supple Cardiovascular: Yes: WNL, Regular Rate and Rhythm Respiratory: Yes: Other (Coarse BS B/L) Gastrointestinal: Yes: WNL, Normal Bowel Sounds, Soft Extremities: Yes: WNL Edema: No Labs: CBC, BMP 10/10/17 09:00 10/10/17 09:00 Problem List - Problems (1) Intractable back pain Assessment/Plan: CT scan thoracic and LS spine showed increased soft tissue T9-T10 w/ compression fx and metastatic dz to T10 and sacrum Rad-onco consult Cont decadron Pain management consult noted Cont pain meds Code(s): M54.9 - DORSALGIA, UNSPECIFIED (2) Metastatic adenocarcinoma Assessment/Plan: As per onco Code(s): C79.9 - SECONDARY MALIGNANT NEOPLASM OF UNSPECIFIED SITE (3) Anemia Assessment/Plan: Due to neoplastic dz Code(s): D64.9 - ANEMIA, UNSPECIFIED Qualifiers: Bone marrow failure anemia type: pancytopenia, antineoplastic chemotherapy- induced (4) COPD (chronic obstructive pulmonary disease) Code(s): J44.9 - CHRONIC OBSTRUCTIVE PULMONARY DISEASE, UNSPECIFIED Qualifiers: COPD type: unspecified COPD Qualified Code(s): J44.9 - Chronic obstructive pulmonary disease, unspecified (5) Hypothyroidism Assessment/Plan: Cont levothyroxine Code(s): E03.9 - HYPOTHYROIDISM, UNSPECIFIED Qualifiers: Hypothyroidism type: unspecified Qualified Code(s): E03.9 - Hypothyroidism , unspecified (6) Thrombocytopenia Code(s): D69.6 - THROMBOCYTOPENIA, UNSPECIFIED
[2017-10-10] MEDS ORDERED: PT OWN MED DRAWER 7, Y5N ONE (22:05)
[2017-10-10] MEDS: LIDOCAINE PATCH REMOVAL MC SCH (22:38)
[2017-10-10] MEDS: MIRTAZAPINE 15 MG TABLET (FP) PO SCH (22:44)
[2017-10-11] MEDS: GABAPENTIN 100 MG CAPSULE (FP) PO SCH ×4 (06:01→23:50)
[2017-10-11] MEDS: LEVOTHYROXINE NA 100 MCG TABLET (FP) PO SCH (06:02)
[2017-10-11] MEDS: HYDROmorphone HCL CARPU-JECT 2 MG/1 ML DISP.SYRIN IVPB PRN ×2 (06:02→10:10)
[2017-10-11] MEDS: DEXAMETHASONE 4 MG TABLET (FP) PO SCH ×4 (06:02→21:09)
[2017-10-11] MEDS: PANTOPRAZOLE 40 MG TABLET (FP) PO SCH (09:53)
[2017-10-11] MEDS: FOLIC ACID 1 MG TABLET (FP) PO SCH (09:53)
[2017-10-11] MEDS: LIDOCAINE 5% TOPICAL PATCH TP SCH (09:53)
[2017-10-11] MEDS: morphine SO4 SUSTAINED ACTING 15 MG TABLET.SA PO SCH ×2 (09:53→21:09)
[2017-10-11] MEDS: MAGNESIUM OXIDE 400 MG TABLET (FP) PO SCH ×2 (09:53→21:09)
[2017-10-11 16:07] LABS: HEMOGLOBIN 7.6 GM/dL (11.7-16.9); MCH 21.4 pg (25.7-33.7); MCHC 30.2 g/dl (32.0-35.9); MEAN CELL VOLUME 70.9 fl (80-96); RBC 3.52 M/mm3 (4.00-5.60); RDW 18.7 % (11.9-15.9); WHITE BLOOD COUNT 14.5 K/mm3 (4.0-10.0)
[2017-10-11 16:14] LABS: ADD RBC MORPHOLOGY YES
[2017-10-11 16:23] LABS: ALBUMIN 2.1 g/dl (3.4-5.0); ALK PHOS 94 U/L (45-117); ANION GAP 9 (8-16); BILIRUBIN,TOTAL 0.2 mg/dL (0.2-1.0); BLOOD UREA NITROGEN 32 mg/dL (7-18); CALCIUM 8.3 mg/dL (8.5-10.1); CHLORIDE 99 mmol/L (98-107); CO2 30 mmol/L (21-32); CREATININE 0.9 mg/dL (0.7-1.3); GLUCOSE,RANDOM 104 mg/dL (74-106); POTASSIUM 3.7 mmol/L (3.5-5.1); SGOT/AST 23 U/L (15-37); SGPT/ALT 18 U/L (12-78); SODIUM 138 mmol/L (136-145); TOT PROT 5.6 g/dl (6.4-8.2)
--- NOTE | 2017-10-11 16:44 | PN ---
Progress Note (short form) - Note Progress Note: Patient seen and examined Last Vital Signs Temp Pulse Resp BP Pulse Ox 98 F 62 18 128/92 93 L 10/11/17 11:39 10/11/17 11:39 10/11/17 11:39 10/11/17 11:39 10/10/17 21:00 Cor: RSR, No murmurs, No gallops Lungs: Clear to P&A Abd: Soft, Normal bowel sounds, No organomegaly Ext:No significant edema Abnormal Lab Results 10/11/17 10/11/17 13:44 13:44 WBC 14.5 H RBC 3.52 L Hgb 7.6 L D Hct 25.0 L MCV 70.9 L MCH 21.4 L MCHC 30.2 L RDW 18.7 H BUN 32 H Calcium 8.3 L Total Protein 5.6 L Albumin 2.1 L Home Medication List Medication Instructions Recorded Confirmed Type Levothyroxine [Synthroid -] 100 mcg PO DAILY 03/10/17 10/07/17 History Magnesium Oxide 400 mg PO BID 03/10/17 10/07/17 History Omeprazole 20 mg PO BID 03/10/17 10/07/17 History Morphine Sulfate [Morphine Sulfate 15 mg PO TID 09/05/17 10/07/17 History ER] Oxycodone HCl/Acetaminophen 2 each PO DAILY 09/05/17 10/07/17 History [Oxycodon-Acetaminophen 7.5-300] Active Medications Generic Name Dose Route Start Last Admin Trade Name Freq PRN Reason Stop Dose Admin Dexamethasone 4 mg 10/08/17 12:30 10/11/17 14:54 Decadron - PO 4 mg Q6HPO MARC Administration Folic Acid 1 mg 10/09/17 10:00 10/11/17 09:53 Folic Acid - PO 1 mg DAILY MARC Administration Gabapentin 100 mg 10/08/17 22:00 10/11/17 14:54 Neurontin - PO 100 mg TID MARC Administration Levothyroxine Sodium 100 mcg 10/09/17 07:00 10/11/17 06:02 Synthroid - PO 100 mcg DAILY@0700 MARC Administration Lidocaine 1 patch 10/09/17 10:00 10/11/17 09:53 Lidoderm Patch - TP 1 patch DAILY MARC Administration Magnesium Oxide 400 mg 10/08/17 22:00 10/11/17 09:53 Mag-Ox - PO 400 mg BID MARC Administration Mirtazapine 15 mg 10/08/17 22:00 10/10/17 22:44 Remeron - PO 15 mg HS MARC Administration Miscellaneous 1 each 10/08/17 22:00 10/10/17 22:38 Lidoderm Patch Removal MC 1 each DAILY@2200 MARC Administration Morphine Sulfate 15 mg 10/08/17 22:00 10/11/17 09:53 Ms Contin - PO 15 mg BID MARC Administration Pantoprazole Sodium 40 mg 10/09/17 10:00 10/11/17 09:53 Protonix - PO 40 mg DAILY MARC Administration A/P 51 yo M with h/o COPD, hypothyroidism, and 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 Patient has been on keytruda Haad been on RT to spine but has not been compliant for last week CT Spine ( 09/09/17) revealed lytic metastasis within the left half of the T10 vertebral body. Pathologic compression fracture of the left half of T10 with mild loss of height. Lytic metastasis within the right S1 and S2 vertebra with enhancing neoplasm surrounding the exiting right S1 nerve root. Patient was scheduled to have outpatient MRI, but refused d/t claustrophobia. Repeat CT scans show t0 compressin fx, no retropulsion/paraspinal mass/epidural disease. progression snce 09/09. ? MRI continue decadron--4mg tid neurosurgery/rad-onc f/u severe thrombocytopenia ---hence treatment of cordcompression challenging. ? marrow suppression from RT check cultures check CXR rheumatology consult for Lt. elbow gout
[2017-10-11 16:54] LABS: MEAN PLT VOLUME 8.7 fl (7.5-11.1); PLATELET COUNT 17 K/MM3 (134-434)
[2017-10-11 17:51] LABS: ANISOCYTOSIS 1+; OVALOCYTE 1+; TARGET CELLS 1+; TEAR DROP CELLS RARE
[2017-10-11 17:52] LABS: MACROCYTOSIS 1+
[2017-10-11] MEDS ORDERED: PORTA CATH FLUSH 10 ML IVPUSH ONE (18:15)
[2017-10-11] MEDS ORDERED: HYDROmorphone HCL CARPU-JECT 2 MG/1 ML DISP.SYRIN IVPB PRN (19:09)
[2017-10-11] MEDS: LIDOCAINE PATCH REMOVAL MC SCH (21:10)
[2017-10-11] MEDS ORDERED: PT OWN MED DRAWER 7, Y5N ONE (21:11)
[2017-10-11] MEDS: MIRTAZAPINE 15 MG TABLET (FP) PO SCH (21:11)
--- NOTE | 2017-10-11 21:59 | PN ---
Progress Note, Physician History of Present Illness: Pt w/ increased ecchymosis on extremities - Current Medication List Current Medications: Active Medications Dexamethasone (Decadron -) 4 mg PO TID [facility] Last Admin: 10/11/17 21:09 Dose: 4 mg Folic Acid (Folic Acid -) 1 mg PO DAILY [facility] Last Admin: 10/11/17 09:53 Dose: 1 mg Gabapentin (Neurontin -) 100 mg PO TID [facility] Last Admin: 10/11/17 21:09 Dose: 100 mg Hydromorphone HCl (Dilaudid Injection -) 2 mg IVPB Q4H PRN PRN Reason: PAIN Last Admin: 10/11/17 19:16 Dose: 2 mg Levothyroxine Sodium (Synthroid -) 100 mcg PO DAILY@0700 [facility] Last Admin: 10/11/17 06:02 Dose: 100 mcg Lidocaine (Lidoderm Patch -) 1 patch TP DAILY [facility] Last Admin: 10/11/17 09:53 Dose: 1 patch Magnesium Oxide (Mag-Ox -) 400 mg PO BID [facility] Last Admin: 10/11/17 21:09 Dose: 400 mg Mirtazapine (Remeron -) 15 mg PO HS [facility] Last Admin: 10/11/17 21:11 Dose: 15 mg Miscellaneous (Lidoderm Patch Removal) 1 each MC DAILY@2200 [facility] Last Admin: 10/11/17 21:10 Dose: 1 each Morphine Sulfate (Ms Contin -) 15 mg PO BID [facility] Last Admin: 10/11/17 21:09 Dose: 15 mg Pantoprazole Sodium (Protonix -) 40 mg PO DAILY [facility] Last Admin: 10/11/17 09:53 Dose: 40 mg - Objective Vital Signs: Vital Signs Temperature 97.2 F L 10/11/17 18:00 Pulse Rate 102 H 10/11/17 18:00 Respiratory Rate 18 10/11/17 18:00 Blood Pressure 134/88 10/11/17 18:00 O2 Sat by Pulse Oximetry (%) 93 L 10/10/17 21:00 Constitutional: Yes: No Distress HENT: Yes: WNL Neck: Yes: WNL, Supple Cardiovascular: Yes: WNL, Regular Rate and Rhythm Respiratory: Yes: WNL, Regular, CTA Bilaterally Gastrointestinal: Yes: WNL, Normal Bowel Sounds, Soft Extremities: Yes: Other ((+) ecchymosis) Labs: CBC, BMP 12/18/17 13:44 10/11/17 13:44 Problem List - Problems (1) Intractable back pain Assessment/Plan: CT scan thoracic and LS spine showed increased soft tissue T9-T10 w/ compression fx and metastatic dz to T10 and sacrum Rad-onco consult/NSG consult Cont decadron Cont neurontin/lidoderm patch/MS contin Will decrease dilaudid Code(s): M54.9 - DORSALGIA, UNSPECIFIED (2) Thrombocytopenia Assessment/Plan: Plt count cont to decrease Pt on decadron As per heme Code(s): D69.6 - THROMBOCYTOPENIA, UNSPECIFIED (3) Metastatic adenocarcinoma Assessment/Plan: As per onco Code(s): C79.9 - SECONDARY MALIGNANT NEOPLASM OF UNSPECIFIED SITE (4) Anemia Code(s): D64.9 - ANEMIA, UNSPECIFIED Qualifiers: Bone marrow failure anemia type: pancytopenia, antineoplastic chemotherapy- induced (5) COPD (chronic obstructive pulmonary disease) Code(s): J44.9 - CHRONIC OBSTRUCTIVE PULMONARY DISEASE, UNSPECIFIED Qualifiers: COPD type: unspecified COPD Qualified Code(s): J44.9 - Chronic obstructive pulmonary disease, unspecified (6) Hypothyroidism Code(s): E03.9 - HYPOTHYROIDISM, UNSPECIFIED Qualifiers: Hypothyroidism type: unspecified Qualified Code(s): E03.9 - Hypothyroidism , unspecified
[2017-10-12] MEDS: HYDROmorphone HCL CARPU-JECT 2 MG/1 ML DISP.SYRIN IVPB PRN ×6 (01:05→20:20)
[2017-10-12] MEDS: LEVOTHYROXINE NA 100 MCG TABLET (FP) PO SCH (06:19)
[2017-10-12] MEDS: DEXAMETHASONE 4 MG TABLET (FP) PO SCH ×3 (06:19→22:54)
[2017-10-12] MEDS: GABAPENTIN 100 MG CAPSULE (FP) PO SCH ×3 (06:19→22:54)
[2017-10-12 07:35] LABS: BASO % 0.1 % (0-2.0); HEMATOCRIT 27.2 % (35.4-49); HEMOGLOBIN 8.3 GM/dL (11.7-16.9); LYMPH % 1.3 % (8-40); MCH 21.4 pg (25.7-33.7); MCHC 30.4 g/dl (32.0-35.9); MEAN CELL VOLUME 70.6 fl (80-96); MEAN PLT VOLUME 7.9 fl (7.5-11.1); MONO % 3.6 % (3.8-10.2); RBC 3.86 M/mm3 (4.00-5.60); RDW 18.5 % (11.9-15.9)
[2017-10-12 07:37] LABS: PLATELET COUNT 16 K/MM3 (134-434)
--- NOTE | 2017-10-12 07:40 | PN ---
Progress Note (short form) - Note Progress Note: NEUROSURGERY Pt seen last month while hospitalized Pt examined H/o adenocarcinoma of lung s/p chemo with mets to L cerebellum (s/p SRS), T and LS spine (undergoing RT) and liver/adrenals, c/o recurrent mid back pain. He has been treated with RT for spinal mets but did not complete RT sessions by report. Pain worse with getting up. No leg weakness, numbness, tingling. No B/ B dysfunction. PE: AF,VSS HEENT- NC/AT; Neck- supple; Cor- RRR; Lungs- CTA B; Abd- benign, + BS; Ext- no sign of DVT CN- intact; Motor- 5/5 except R IP 4+; Sensation- intact LT, decreased distal vibration; DTR- 1+, no LTS; Gait- stable; cerebellar- mild tremor, intact FTN CT T/LS spine (08/2017): L T10 vertebral met with extension into T9-10 neuroforamen, no cord compression or impingement; degenerativge spondylolisthesis L3-4 and L5-S1; sacral S1-[address] T spine: L T10 metastatic involvement with T9-10 foramenal involvement as previously; mild loss of T10 vertebral height and mild anterior epidural extension Multifocal mets from lung adenoCA Rad onc f/u Pain management for pain med optimization Pt advised the importance of compliance with medical tx regimen, deepthi completion of RT Pt unable to complete inpatient T spine MRI on most recent admission 2 weeks ago , despite sedation and multiple attempts Offered TLSO brace
[2017-10-12 07:54] LABS: ALBUMIN 2.3 g/dl (3.4-5.0); ANION GAP 8 (8-16); BLOOD UREA NITROGEN 31 mg/dL (7-18); CALCIUM 8.3 mg/dL (8.5-10.1); CHLORIDE 96 mmol/L (98-107); CO2 31 mmol/L (21-32); GLUCOSE,RANDOM 94 mg/dL (74-106); POTASSIUM 3.9 mmol/L (3.5-5.1); SODIUM 135 mmol/L (136-145)
[2017-10-12 07:59] LABS: INR 1.01 (0.82-1.09); PROTHROMBIN TIME (PATIENT) 11.4 SEC (9.98-11.88)
[2017-10-12 08:02] LABS: ACTIVATED PTT 24.9 SECONDS (26.9-34.4)
[2017-10-12 08:05] LABS: ALK PHOS 107 U/L (45-117); BILIRUBIN,TOTAL 0.2 mg/dL (0.2-1.0); CREATININE 0.9 mg/dL (0.7-1.3); SGOT/AST 21 U/L (15-37); SGPT/ALT 18 U/L (12-78)
[2017-10-12] MEDS: MAGNESIUM OXIDE 400 MG TABLET (FP) PO SCH ×2 (09:01→22:54)
[2017-10-12] MEDS: PANTOPRAZOLE 40 MG TABLET (FP) PO SCH (09:01)
[2017-10-12] MEDS: morphine SO4 SUSTAINED ACTING 15 MG TABLET.SA PO SCH ×2 (09:01→23:25)
[2017-10-12] MEDS: LIDOCAINE 5% TOPICAL PATCH TP SCH (09:02)
[2017-10-12] MEDS: FOLIC ACID 1 MG TABLET (FP) PO SCH (09:03)
--- NOTE | 2017-10-12 17:53 | PN ---
Progress Note (short form) - Note Progress Note: Patient with severe pain from metastatic adenocarcinoma. Pain specialist is on the case. Narcotic dosing is being increased. His platelets are 16 k. Discussed with Med Onc. This may be secondary to treatment effect or bone marrow infiltration by cancer. In any case we can't continue RT with this level of platelets. Will follow CBC and if improved we can resume RT. He has only completed 3 / 10 treatments to the T7-T11 bodies. Will follow
[2017-10-12] MEDS ORDERED: FENTANYL PATCH WASTE MC PRN (19:32)
--- NOTE | 2017-10-12 19:35 | PN ---
Progress Note (short form) - Note Progress Note: Patient seen and examined Pain still problematic To continue to adjust analgesics To add Fentanyl to regimen To gradually increase MS contin from BID to TID To raise dilaudid RT note seen Thrombocytopenia persistent Last Vital Signs Temp Pulse Resp BP Pulse Ox 97.2 F L 100 H 18 100/74 98 10/12/17 10:00 10/12/17 10:00 10/12/17 10:00 10/12/17 10:00 10/12/17 10:00 Current Medications Generic Name Dose Route Start Last Admin Trade Name Freq PRN Reason Stop Dose Admin Dexamethasone 4 mg 10/11/17 22:00 10/12/17 13:16 Decadron - PO 4 mg TID MARC Administration Folic Acid 1 mg 10/09/17 10:00 10/12/17 09:03 Folic Acid - PO 1 mg DAILY MARC Administration Gabapentin 200 mg 10/11/17 22:30 10/12/17 13:16 Neurontin - PO 200 mg TID MARC Administration Hydromorphone HCl 1 mg 10/12/17 11:54 10/12/17 16:02 Dilaudid Injection - IVPB 1 mg Q4H PRN Administration Levothyroxine Sodium 100 mcg 10/09/17 07:00 10/12/17 06:19 Synthroid - PO 100 mcg DAILY@0700 MARC Administration Lidocaine 1 patch 10/09/17 10:00 10/12/17 09:02 Lidoderm Patch - TP 1 patch DAILY MARC Administration Magnesium Oxide 400 mg 10/08/17 22:00 10/12/17 09:01 Mag-Ox - PO 400 mg BID MARC Administration Mirtazapine 15 mg 10/08/17 22:00 10/11/17 21:11 Remeron - PO 15 mg HS MARC Administration Miscellaneous 1 each 10/08/17 22:00 10/11/17 21:10 Lidoderm Patch Removal MC 1 each DAILY@2200 MARC Administration Morphine Sulfate 15 mg 10/08/17 22:00 10/12/17 09:01 Ms Contin - PO 15 mg BID MARC Administration Pantoprazole Sodium 40 mg 10/09/17 10:00 10/12/17 09:01 Protonix - PO 40 mg DAILY MARC Administration Microbiology 10/11/17 Unknown Blood - Central Line Blood Culture - Preliminary Pending Organism 10/11/17 Unknown Blood - Central Line Blood Culture - Preliminary Pending Organism Impression : Adenoca of Lung Spinal cord compression Pain management Thrombocytopenia Positive blood cultures HEENT: SILVINO, EOM Intact Cor: RSR, No murmurs, No gallops Lungs:rhonchi and diminished breath sounds Abd: Soft, Normal bowel sounds, No organomegaly Ext:No significant edema, clubbing Skin: No rashes, Integument intact Plan MS contin TID Fentanyl 25 mcg dilaudid 2 mg q4h ID consult
[2017-10-12] MEDS ORDERED: VANCOMYCIN 1,250 MG in DEXTROSE 5%-WATER - 250 ML IVPB SCH (19:45)
[2017-10-12] MEDS ORDERED: VANCOMYCIN 1,250 MG in DEXTROSE 5%-WATER - 250 ML IVPB ONE (20:00)
--- NOTE | 2017-10-12 20:35 | PN ---
Progress Note, Physician - Current Medication List Current Medications: Active Medications Dexamethasone (Decadron -) 4 mg PO TID [facility] Last Admin: 10/12/17 13:16 Dose: 4 mg Fentanyl (Duragesic 25mcg Patch -) 1 patch TD Q72H [facility] Stop: 10/19/17 19:32 Folic Acid (Folic Acid -) 1 mg PO DAILY [facility] Last Admin: 10/12/17 09:03 Dose: 1 mg Gabapentin (Neurontin -) 200 mg PO TID [facility] Last Admin: 10/12/17 13:16 Dose: 200 mg Hydromorphone HCl (Dilaudid Injection -) 2 mg IVPB Q4H PRN PRN Reason: PAIN Vancomycin HCl 1,250 mg/ (Dextrose) 250 mls @ 250 mls/hr IVPB DAILY [facility] PRN Reason: Protocol Vancomycin HCl 1,250 mg/ (Dextrose) 250 mls @ 166.667 mls/hr IVPB ONCE ONE Stop: 10/12/17 21:29 Levothyroxine Sodium (Synthroid -) 100 mcg PO DAILY@0700 [facility] Last Admin: 10/12/17 06:19 Dose: 100 mcg Lidocaine (Lidoderm Patch -) 1 patch TP DAILY [facility] Last Admin: 10/12/17 09:02 Dose: 1 patch Magnesium Oxide (Mag-Ox -) 400 mg PO BID [facility] Last Admin: 10/12/17 09:01 Dose: 400 mg Mirtazapine (Remeron -) 15 mg PO HS [facility] Last Admin: 10/11/17 21:11 Dose: 15 mg Miscellaneous (Lidoderm Patch Removal) 1 each MC DAILY@2200 [facility] Last Admin: 10/11/17 21:10 Dose: 1 each Miscellaneous (Duragesic Patch Waste) 1 each MC PRN PRN PRN Reason: PAIN Morphine Sulfate (Ms Contin -) 15 mg PO TID [facility] Pantoprazole Sodium (Protonix -) 40 mg PO DAILY [facility] Last Admin: 10/12/17 09:01 Dose: 40 mg - Objective Vital Signs: Vital Signs Temperature 97.2 F L 10/12/17 10:00 Pulse Rate 100 H 10/12/17 10:00 Respiratory Rate 18 10/12/17 10:00 Blood Pressure 100/74 10/12/17 10:00 O2 Sat by Pulse Oximetry (%) 98 10/12/17 10:00 Labs: CBC, BMP 10/12/17 06:00 10/12/17 06:00 INR, PTT INR 1.01 (0.82-1.09) 10/12/17 06:00 Problem List - Problems (1) Intractable back pain Code(s): M54.9 - DORSALGIA, UNSPECIFIED (2) Thrombocytopenia Code(s): D69.6 - THROMBOCYTOPENIA, UNSPECIFIED (3) Metastatic adenocarcinoma Code(s): C79.9 - SECONDARY MALIGNANT NEOPLASM OF UNSPECIFIED SITE (4) Anemia Code(s): D64.9 - ANEMIA, UNSPECIFIED Qualifiers: Bone marrow failure anemia type: pancytopenia, antineoplastic chemotherapy- induced (5) COPD (chronic obstructive pulmonary disease) Code(s): J44.9 - CHRONIC OBSTRUCTIVE PULMONARY DISEASE, UNSPECIFIED Qualifiers: COPD type: unspecified COPD Qualified Code(s): J44.9 - Chronic obstructive pulmonary disease, unspecified (6) Hypothyroidism Code(s): E03.9 - HYPOTHYROIDISM, UNSPECIFIED Qualifiers: Hypothyroidism type: unspecified Qualified Code(s): E03.9 - Hypothyroidism , unspecified
[2017-10-12] MEDS: fentaNYL 25mcg/hr PATCH.TD72 TD SCH (22:11)
[2017-10-12] MEDS: LIDOCAINE PATCH REMOVAL MC SCH (22:54)
--- NOTE | 2017-10-12 23:18 | HOSP ---
Subjective - Review of Symptoms Subjective: Called about CT result of infarct called back and was notified that was called as was neuro and pt. is being transferred to stroke tele Physical Examination Vital Signs: Vital Signs Temperature 97.2 F L 10/12/17 10:00 Pulse Rate 100 H 10/12/17 10:00 Respiratory Rate 18 10/12/17 10:00 Blood Pressure 100/74 10/12/17 10:00 O2 Sat by Pulse Oximetry (%) 98 10/12/17 10:00 Labs: CBC, BMP 10/12/17 06:00 10/12/17 06:00
--- NOTE | 2017-10-12 23:19 | PN ---
Progress Note (short form) - Note Progress Note: Phone call encounter: Pt with new onset AMS, slurred speech. CTH was done. reviewed the report. Pt with new acute nonhemorrhagic stroke..?etiology rec: hospitalist tulio, neuro consult, stroke w.u, MRI , close neurochecks, Vitals monitoring, BP goal to be maintained at least around 140s ,SBP, would need tele, TTE, seizure and fall precautions. Hold off on the up-titrated pain meds. discussed in detail with RN. available for further questions.
[2017-10-13] MEDS: MIRTAZAPINE 15 MG TABLET (FP) PO SCH ×2 (00:30→22:30)
[2017-10-13 01:38] LABS: ARTERIAL BLD GAS O2 SATURATION 94.9 % (90-98.9); ARTERIAL BLOOD GAS BASE EXCESS 4.7 meq/l (-2-2); ARTERIAL BLOOD GAS PCO2 41.4 mmHg (35-45); ARTERIAL BLOOD GAS pH 7.45 (7.35-7.45)
[2017-10-13 01:41] LABS: ALLENS TEST POSITIVE
[2017-10-13] MEDS ORDERED: PIPERACILLIN/TAZOB 3.375 GM 3.375 GM in DEXTROSE 5%-WATER - 100 ML IVPB ONE (03:15)
[2017-10-13] MEDS: DEXAMETHASONE 4 MG TABLET (FP) PO SCH ×3 (05:24→22:30)
[2017-10-13] MEDS: GABAPENTIN 100 MG CAPSULE (FP) PO SCH ×3 (05:24→20:10)
[2017-10-13] MEDS: morphine SO4 SUSTAINED ACTING 15 MG TABLET.SA PO SCH ×3 (05:24→22:10)
[2017-10-13] MEDS: LEVOTHYROXINE NA 100 MCG TABLET (FP) PO SCH (06:01)
--- NOTE | 2017-10-13 07:39 | PN ---
Progress Note (short form) - Note Progress Note: NEUROSURGERY Transferred to telemetry Care d/w RN last night Frustrated by speech difficulty PE: T max 98.4, AF, IN 100-100; SBP 80-105 HEENT- NC/AT; Neck- supple; Cor- RRR; Lungs- CTA B; Abd- benign, + BS; Ext- no sign of DVT Garbled/dysarthric speech; following commands CN- intact except mild L lower facial asymmetry and tongue deviation to R; Motor - 4+/5 in UE/LE extremities, appears symmetric ; Sensation- intact LT, decreased distal vibration; DTR- 1+, no LTS; Gait- stable; cerebellar- mild tremor Blood culture- 2/4 gram + cocci in clusters CXR- R lung opacity; R sided catheter in place CT T spine: L T10 metastatic involvement with T9-10 foramenal involvement as previously; mild loss of T10 vertebral height and mild anterior epidural extension Head CT- R lateral temporal and R lateral parietal cortical-subcortical hypodenisty with minimal mass effect (not present on 09-09-2017 scan); chronic cerebellar changes Multifocal mets from lung adenoCA Acute onset R MCA ischemia (? causes) vs subtle small mets Gram + bacteremia Maintain BP for perfusion Cardiology and neurology input Brain MRI with/without harleen including diffusion imaging recommended though pt was not able to tolerate our MRI on prior admission despite multiple attempts including with oral sedation D/w Dr Park, on Vanco and Zosyn coverage
--- NOTE | 2017-10-13 08:10 | PN ---
Progress Note (short form) - Note Progress Note: ID Full note dictated Selected Entries 10/13/17 07:32 Temperature 98.4 F Pulse Rate 102 H Respiratory 24 Rate Blood Pressure 102/64 Laboratory Tests 10/07/17 10/12/17 10/12/17 21:30 06:00 06:00 WBC 18.0 H Hgb 8.3 L Hct 27.2 L Plt Count 16 L* Creat Clearance w eGFR > 60 Ur Leukocyte Esterase Negative Microbiology 10/11/17 Unknown Blood - Central Line Blood Culture - Preliminary Pending Organism 10/11/17 Unknown Blood - Central Line Blood Culture - Preliminary Pending Organism Assessment Metastatic lung CA Gram positive bacteremia Previous Staph Epidermidis bacateremia April 2017 thought port related Opacified right lung Low platelets ? infection vs mets Stroke vs Brain mets Plan Vancomycin Will need ECHO Peripheral blood cultures Discussed with Dr Adriano Park MD Problem List - Problems (1) Gram-positive bacteremia Code(s): R78.81 - BACTEREMIA (2) Gram-positive bacteremia Code(s): R78.81 - BACTEREMIA (3) Metastatic lung cancer (metastasis from lung to other site) Code(s): C34.90 - MALIGNANT NEOPLASM OF UNSP PART OF UNSP BRONCHUS OR LUNG (4) Cerebrovascular disease in cancer patient Code(s): I67.9 - CEREBROVASCULAR DISEASE, UNSPECIFIED; C80.1 - MALIGNANT ( PRIMARY) NEOPLASM, UNSPECIFIED
[2017-10-13] MEDS ORDERED: diazePAM 2 MG TABLET PO ONE (08:18)
[2017-10-13 08:23] LABS: BASO % 0.2 % (0-2.0); EOS % 0.1 % (0-4.5); HEMATOCRIT 22.6 % (35.4-49); LYMPH % 0.8 % (8-40); MCH 21.4 pg (25.7-33.7); MCHC 30.1 g/dl (32.0-35.9); MEAN CELL VOLUME 71.1 fl (80-96); MEAN PLT VOLUME 9.7 fl (7.5-11.1); MONO % 2.7 % (3.8-10.2); NEUT % 96.2 % (42.8-82.8); RBC 3.18 M/mm3 (4.00-5.60); RDW 18.9 % (11.9-15.9); WHITE BLOOD COUNT 14.6 K/mm3 (4.0-10.0)
[2017-10-13 08:39] LABS: HEMOGLOBIN 6.8 GM/dL (11.7-16.9); PLATELET COUNT 17 K/MM3 (134-434)
[2017-10-13 09:11] LABS: CALCIUM 8.2 mg/dL (8.5-10.1); CHLORIDE 97 mmol/L (98-107); SODIUM 136 mmol/L (136-145)
[2017-10-13 09:17] LABS: ALK PHOS 90 U/L (45-117); ANION GAP 10 (8-16); BILIRUBIN,TOTAL 0.4 mg/dL (0.2-1.0); BLOOD UREA NITROGEN 42 mg/dL (7-18); CHOLESTEROL 148 mg/dL (50-200); CO2 29 mmol/L (21-32); CREATININE 1.5 mg/dL (0.7-1.3); GLUCOSE,RANDOM 91 mg/dL (74-106); SGOT/AST 78 U/L (15-37); SGPT/ALT 65 U/L (12-78); TOT PROT 5.1 g/dl (6.4-8.2); TRIGLYCERIDES 367 mg/dL (35-160)
[2017-10-13 10:01] LABS: LDL CHOLESTEROL (ONLY SJRH) 57 mg/dL (5-100)
[2017-10-13 10:02] LABS: HDL CHOLESTEROL 49 mg/dL (40-60)
--- NOTE | 2017-10-13 10:13 | CONSULT ---
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 Increasing right opacificatiion right lung, now NPO. Found to be confused/difficulty communicating with CT head 10/12 Acute right Parietal Cortical infacrt and Acute/Subacute Left Posterior Temp infarct, chronic small R cereb infact. MRI pending. Multifocal mets from lung adenoCA Acute onset R MCA ischemia (? causes) vs subtle small mets Pt is somewhat euphoric, with impaired insight, no frustration, rapid speech production,adversely affecting intelligibility greatly. History Source: Patient, Medical Record Limitations to Obtaining History: Clinical Condition - Past Medical History [employer]: Yes: Other ([employer] mets- s/p stereotactic radiosurgery (Gamma Knife) ) Cardiovascular: Yes: Other (small pericardial effusion ) Pulmonary: Yes: Cancer, COPD, Other (Adenoca of lung - mets to [employer], liver, spine and adrenal ). No: O2 Dependent Renal/: Yes: Other (hyponatremia) Heme/Onc: Yes: Current Chemotherapy, Other (Pembrolizumab q 3 weeks) Musculoskeletal: Yes: Other (right rib cage pains) Endocrine: Yes: Hypothyroidism. No: Diabetes Mellitus - Smoking History Smoking history: Current every day smoker Have you smoked in the past 12 months: Yes Aproximately how many cigarettes per day: 4 If you are a former smoker, when did you quit?: 1 wk ago - Alcohol/Substance Use Hx Alcohol Use: No History of Substance Use: reports: None - Social History History of Recent Travel: No History - Admission Reason For Visit: INTRACTABLE BACK PAIN - Diagnostics X-ray: Report Reviewed CT Scan: Report Reviewed MRI: Pending - General Mental Status: Alert and Oriented (grossly oriented to [facility], 2017, nov, xm, 53 yo, "Speech changed 2 days ago") Attention: Distractible, Mild Impairment Ability to Follow Directions: Fair - Hearing Hearing: Normal Speech Evaluation - Communication Primary Language: FAROESE Communication: Yes: Dysarthria Oral Expression Ability: Yes: Mild Impairment, Moderate Impairment - Speech Production Able to Make Needs Known: Yes: Mildly Impaired, Moderately Impaired Intelligibility: Yes: Mildly Impaired, Moderately Impaired - Speech Characteristics Voice Loudness: Normal, Excessive Variation Voice Pitch: Yes: Normal, Excessive Variation Voice Phonatory-based Quality: Yes: Dysphonia Speech Pattern: Impaired Speech Clarity: < 50% Nasal Resonance: Normal Articulation: Yes: Imprecise Rate of Speech: Too Fast (impulsive, rapid speech. Speech intelligibility improves considerably when instructed to speech SLOWLY AND CLEARLY) - Language/Auditory Comprehension Follows: Yes: 1 Stage Simple Commands Observation: Able to respond to yes/no queries: Yes, Yes/No Confusion: No, Comprehends Conversational Speech: Yes - Language/Verbal Expression Able to Respond to Simple Queries: Yes: Mildly Impaired Functional Communication Status: Yes: Mildly Impaired, Moderately Impaired - Swallow Evaluation/Bedside Assessment Current Nutritional Intake: NPO Facial Symmetry at Rest: Symmetrical Facial Symmetry on Retraction: Symmetrical Against Resistance Opening: Weak Against Resistance Closing: Weak Pucker Lips: Weak Smile: Weak Lingual Movement: Symmetric, Reduced Tip Elevation, Reduced Protrusion Lingual Speed of Movement: Normal Lingual Movement Strgth Against Opposition: Reduced Lingual Movement Characteristics: Normal Laryngeal Elevation: Impaired Laryngeal Movement: Reduced Excursion, Labored,delay initiation, Reduced Velocity Labial Seal: WFL Oral Prep Time: WFL A-P Transit: WFL Timing of Swallow: Delayed Coughing/Throat Clear: No Change in Voice: No Recommendations - Speech Evaluation, Impression/Plan Impression: Dysarthria. Dysphagia. Almost complete opacification of right lung. Pt is somewhat euphoric, with impaired insight, no frustration, rapid speech production,adversely affecting intelligibility greatly.impulsive, rapid speech. Speech intelligibility improves considerably when instructed to speech SLOWLY AND CLEARLY. Swallowing assessed only with 1/2 tsp applesauce, as pt c/o pain and would not sit up. Ideally MBS should be done before PO trials given. With Right lung status at this time, risk of aspiration and adverse affects if great. - Disposition Discharge to: Detention Facility - Dysphagia Impressions/Plan Swallowing Skills: Impaired Dysphagia Impressions: Moderate Impairment, Risk of Aspiration, Ongoing Evaluation *Silent aspiration: cannot be R/O at bedside Recommendations: Modified Barium Swallow (If and when able to tolerate.), Other (Alternate means of medication and nutritional intake at this time.) - Recommendations Diet Consistency: NPO Liquids: NPO
--- NOTE | 2017-10-13 11:06 | PN ---
Progress Note (short form) - Note Progress Note: chart reviewed in detail. all the events noted. He complains of back pain. O/E: slurry speech alert ,oriented and awake. Tachy +facial droop noted RLE weak. Last Vital Signs Temp Pulse Resp BP Pulse Ox 98.4 F 102 H 24 102/64 90 L 10/13/17 07:32 10/13/17 07:32 10/13/17 07:32 10/13/17 07:32 10/13/17 00:30 CBC, BMP 10/13/17 05:35 10/13/17 05:35 Current Medications Generic Name Dose Route Start Last Admin Trade Name Freq PRN Reason Stop Dose Admin Dexamethasone 4 mg 10/11/17 22:00 10/13/17 05:24 Decadron - PO Not Given TID MARC Fentanyl 1 patch 10/12/17 19:45 10/12/17 22:11 Duragesic 25mcg Patch - TD 10/19/17 19:32 Not Given Q72H MARC Folic Acid 1 mg 10/09/17 10:00 10/12/17 09:03 Folic Acid - PO 1 mg DAILY MARC Administration Gabapentin 200 mg 10/11/17 22:30 10/13/17 05:24 Neurontin - PO Not Given TID MARC Hydromorphone HCl 2 mg 10/12/17 19:33 10/12/17 20:20 Dilaudid Injection - IVPB 2 mg Q4H PRN Administration PAIN Vancomycin HCl 1,000 mg/ 250 mls @ 250 mls/hr 10/13/17 10:00 Dextrose IVPB BID MARC Protocol Piperacillin Sod/Tazobactam 100 mls @ 200 mls/hr 10/13/17 10:00 Sod 4.5 gm/ Dextrose IVPB Q8H-IV MARC Protocol Levothyroxine Sodium 100 mcg 10/09/17 07:00 10/13/17 06:01 Synthroid - PO Not Given DAILY@0700 MARC Lidocaine 1 patch 10/09/17 10:00 10/12/17 09:02 Lidoderm Patch - TP 1 patch DAILY MARC Administration Magnesium Oxide 400 mg 10/08/17 22:00 10/12/17 22:54 Mag-Ox - PO 400 mg BID MARC Administration Mirtazapine 15 mg 10/08/17 22:00 10/13/17 00:30 Remeron - PO Not Given HS MARC Miscellaneous 1 each 10/08/17 22:00 10/12/17 22:54 Lidoderm Patch Removal MC 1 each DAILY@2200 MARC Administration Miscellaneous 1 each 10/12/17 19:32 Duragesic Patch Waste MC PRN PRN PAIN Morphine Sulfate 15 mg 10/12/17 22:00 10/13/17 05:24 Ms Contin - PO Not Given TID MARC Pantoprazole Sodium 40 mg 10/09/17 10:00 10/12/17 09:01 Protonix - PO 40 mg DAILY MARC Administration Adenoca of Lung Spinal cord compression Pain management Thrombocytopenia GPC in blood NEW stroke. NEW LEIDA Plan appreciate ID/NSG consult abx per ID Await Neuro consult Pt agreed for MR imaging TTE, cardiology consulted CXR reviewed, pulm consulted, ?CT chest will give PRBC/Platelet transfusion, thrombocytopenia ?infection,?mets-- will continue to monitor. Appreciate Renal, will give IVF. will c/w steroids Pain control acutely ill. d/w ID/Pulm/Renal/RN ofthe pt.
--- NOTE | 2017-10-13 11:16 | EKG ---
Test Reason : Blood Pressure : / mmHG Vent. Rate : 125 BPM Atrial Rate : 125 BPM P-R Int : 122 ms QRS Dur : 080 ms QT Int : 278 ms P-R-T Axes : 035 047 028 degrees QTc Int : 401 ms SINUS TACHYCARDIA WITH PREMATURE ATRIAL COMPLEXES WITH ABERRANT CONDUCTION OTHERWISE NORMAL ECG WHEN COMPARED WITH ECG OF 07-SEP-2017 10:55, ABERRANT CONDUCTION IS NOW PRESENT Confirmed by YOUNG POST, MARCUS ([id number]) on 10/13/2017 11:16:19 AM Referred By: Confirmed By:MARCUS VIDAL MD
--- NOTE | 2017-10-13 11:18 | CONS ---
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 He has a history of severe COPD, and I am asked to see him now as based on a severe thrombocytopenia, blood cultures were drawn to rule out infection. These are now positive for gram-positive cocci in clusters from 2 sets drawn through his Port-A-Cath. He denies any fevers or chills. Here, he had a CAT scan of the head which was read by Dr. Oh and as per the radiologist, showed an acute non-hemorrhagic right parietal cortical infarct; acute/subacute non-hemorrhagic left posterior temporal cortical infarct noted; and a small, chronic right cerebellar infarct noted. The patient has no history of valvular heart disease. We had seen him in consultation towards the end of April. At which time, he had a Staphylococcus epidermidis bacteremia from Port-A-Cath blood cultures dated May 19 and May 21. Venous catheter cultures dated May 21 were no growth. The port was removed by Dr. Hall, and the patient was treated initially with vancomycin, and we wanted to treat him with vancomycin to complete the course of treatment, but he declined a PICC line and received linezolid instead. PAST MEDICAL HISTORY: As noted above. CURRENT MEDICATIONS: Include a Duragesic patch, Neurontin, Remeron, Decadron 4 mg t.i.d., MS Contin, hydromorphone, Protonix, Synthroid, folic acid. ALLERGIES: None known. SOCIAL HISTORY: Smoking history: Current, everyday smoker. No history of alcohol or drug abuse. FAMILY HISTORY: Reviewed and noncontributory. REVIEW OF SYSTEMS: Respiratory: No cough, shortness of breath, or hemoptysis. Cardiac: No chest pain, palpitations, or syncope. Gastrointestinal: No nausea, vomiting, diarrhea, or abdominal pain. Genitourinary: No dysuria, hematuria, or urinary frequency. PHYSICAL EXAMINATION: General: He was a chronically ill-appearing male in no acute distress. Vital Signs: The temperature was 98.4, pulse 102, blood pressure 102/64, respirations 24, O2 saturation 90%. Neck: Supple. No adenopathy. Lungs: With diminished breath sounds bilaterally. Heart: S1, S2. Regular rhythm without audible murmur. Abdomen: Soft, nontender, without hepatosplenomegaly. Extremities: Without clubbing, cyanosis, or edema. Neurologic: Garbled, dysarthric speech. As per Dr. Oh's note, lower facial asymmetry and tongue deviation to the right. DIAGNOSTIC DATA: The white count is 18,000, hemoglobin 8.3, platelets of 16,000; polys 95%, monocytes 4%. INR of 1. ABG 7.45, 41, pO2 of 76. Urinalysis negative. Chest x-ray was reviewed, shows complete opacification of the right hemithorax. ASSESSMENT: 1. Metastatic adenocarcinoma with multiple sites including adrenals, spine, and brain. 2. Positive blood cultures for gram-positive cocci in clusters from the Port-A-Cath, venous blood cultures pending. 3. History of Staphylococcus epidermidis in blood cultures dated May 19 and May 21 from the Port-A-Cath, now removed with a new Port-A-Cath in place. The possibility that the catheter may be colonized considered. 4. Complete opacification of the right hemithorax, suspect massive atelectasis with post-obstructive pneumonia. PLAN: We will empirically treat him with a combination of vancomycin and Zosyn. Regarding his CT findings, the possibility of septic emboli is considered either as a result of bacterial endocarditis related to current bacteremia or non-thrombotic related to his metastatic CA. The plan will be to obtain an echocardiogram, empirically treat him for both gram-positive bacteremia as well as possible post-obstructive pneumonia. Severe thrombocytopenia noted, most likely related to infection but cannot rule out the possibility of metastatic disease to the marrow, although this seems to be a relatively acute finding. Case was discussed with Hematology and Neurosurgery. GITA HURD M.D. [id number]
--- NOTE | 2017-10-13 11:51 | CON.NEP ---
Consult Consult Specialty:: Nephrolgoy Referred by:: Dr. Pelaez Reason for Consultation:: Acute Renal Injury - History of Present Illness Chief Complaint: Pain History of Present Illness: This is a 51 year old gentleman with PMhx of metastatic adenocarcinoma of the lung who presented with complaints of back pain and found to have metastatic disease on his thorasic spine with bactermia, opacification of his lung, new CVA and LEIDA with Cr of 1.5. Pt with no history of CKD, kidney stones. No contrast exposure this admission. Pt on Abx (zosyn, Vanco) for Vanco. No NSSAIDs given. No flank pain, dysuria, Abd pain, N/V/D. Bladder scan showed volume of 95cc. No fever but BP is low. Pt reports making urine. No rash. - History Source History Provided By: Patient Limitations to Obtaining History: No Limitations - Past Medical History HIGH RISK OB: Yes: Other (HIGH RISK OB mets- s/p stereotactic radiosurgery (Gamma Knife) ) Cardio/Vascular: Yes: Other (small pericardial effusion ) Pulmonary: Yes: Cancer, COPD, Other (Adenoca of lung - mets to HIGH RISK OB, liver, spine and adrenal ). No: O2 Dependent Renal/: Yes: Other (hyponatremia) Musculoskeletal: Yes: Other (right rib cage pains) Endocrine: Yes: Hypothyroidism. No: Diabetes Mellitus - Alcohol/Substance Use Hx Alcohol Use: No History of Substance Use: reports: None - Smoking History Smoking history: Current every day smoker Have you smoked in the past 12 months: Yes Aproximately how many cigarettes per day: 4 If you are a former smoker, when did you quit?: 1 wk ago - Social History History of Recent Travel: No Home Medications - Allergies Allergies/Adverse Reactions: Allergies Allergy/AdvReac Type Severity Reaction Status Date / Time No Known Allergies Allergy Verified 09/27/17 19:59 - Home Medications Home Medications: Ambulatory Orders Levothyroxine [Synthroid -] 100 mcg PO DAILY 03/10/17 Magnesium Oxide 400 mg PO BID 03/10/17 Omeprazole 20 mg PO BID 03/10/17 Morphine Sulfate [Morphine Sulfate ER] 15 mg PO TID 09/05/17 Oxycodone HCl/Acetaminophen [Oxycodon-Acetaminophen 7.5-300] 2 each PO DAILY 10/10 Dexamethasone [Decadron -] 4 mg PO Q6H #120 tablet 09/10/17 Folic Acid - 1 mg PO DAILY #30 tablet 09/10/17 Mirtazapine [Remeron -] 15 mg PO HS tablet 09/10/17 Pantoprazole Sodium [Protonix -] 20 mg PO BID tablet.ec 09/10/17 Lidocaine 5% Patch [Lidoderm -] 1 patch TP DAILY #7 patch 09/27/17 Gabapentin [Neurontin] 100 mg PO TID #90 capsule 10/01/17 Family Disease History - Family Disease History Family History: Unremarkable Review of Systems - Review of Systems Constitutional: reports: No Symptoms Eyes: reports: No Symptoms HENT: reports: No Symptoms Neck: reports: No Symptoms Cardiovascular: reports: No Symptoms Respiratory: reports: SOB Gastrointestinal: reports: No Symptoms Musculoskeletal: reports: Back Pain Neurological: reports: No Symptoms Nephrology Consult - Height Height: 5 ft 11 in - Weight Weight: 72.575 kg - BMI Body Mass Index (BMI): 22.3 - Lab Results CBC,BMP: CBC, BMP 10/13/17 05:35 10/13/17 05:35 Anion Gap: Anion Gap Anion Gap 10 (8-16) 10/13/17 05:35 - Imaging Chest X-ray: Report Reviewed Cat Scan: Report Reviewed - Physical Examination Vital Signs: Vital Signs Temperature 98.4 F 10/13/17 07:32 Pulse Rate 102 H 10/13/17 07:32 Respiratory Rate 24 10/13/17 07:32 Blood Pressure 102/64 10/13/17 07:32 O2 Sat by Pulse Oximetry (%) 90 L 10/13/17 00:30 Constitutional: Yes: Well Nourished, No Distress Eyes: Yes: Conjunctiva Clear HENT: Yes: Atraumatic, Normocephalic Neck: Yes: Supple Cardiovascular: Yes: Regular Rate and Rhythm, S1, S2. No: Murmur, Rub Respiratory: Yes: Regular, CTA Bilaterally, Diminished (right lung). No: Rales , Rhonchi, Wheezes Gastrointestinal: Yes: Normal Bowel Sounds, Soft. No: Tenderness Renal/: No: Anuria, Bladder Distention, CVA Tenderness - Left, CVA Tenderness - Right, [place] Present Edema: No Neurological: Yes: Alert, Other (slurred speech) Assessment/Plan 51 year old gentleman with PMhx of metastatic adenocarcinoma of the lung who presented with complaints of back pain and found to have metastatic disease on his thoracic spine with bactermia, opacification of his lung, new CVA and LEIDA with Cr of 1.5. #Acute Renal Failure in setting of bacteremia/Sepsis Etiology likely pre-renal/renal hypoprofusion in setting of sepsis Check Urine studies Bladder scan showed no significant urinary retention Check Kidney US r/o upper level obstruction Would start NS at 83cc per hour with careful monitoring of respiratory status dose all meds for CrCl less then 50 Keep MAP > 65 strict I and O #New CVA ? etiology Neuro Sx following for MRI at the present Cr level his eGFR is > 30 so his risk of nephrogenic systemic fibrosis is low #Lung Ca with Mets Oncology following supportive care on decodron #Acute Anemia Transfsue to keep Hgb > 7 check iron studies Thank you Will follow Francisco North DO
[2017-10-13] MEDS: HYDROmorphone HCL CARPU-JECT 2 MG/1 ML DISP.SYRIN IVPB PRN ×3 (11:54→22:11)
[2017-10-13] MEDS: MAGNESIUM OXIDE 400 MG TABLET (FP) PO SCH ×2 (11:56→22:30)
[2017-10-13] MEDS: PANTOPRAZOLE 40 MG TABLET (FP) PO SCH (11:56)
[2017-10-13] MEDS: FOLIC ACID 1 MG TABLET (FP) PO SCH (11:56)
[2017-10-13] MEDS ORDERED: SODIUM CHLORIDE 1,000 ML IV SCH (12:15)
[2017-10-13] MEDS: PIPERACILLIN/TAZOB 4.5 GM 4.5 GM in DEXTROSE 5%-WATER - 100 ML IVPB SCH ×2 (12:36→21:00)
[2017-10-13] MEDS: VANCOMYCIN 1,000 MG in DEXTROSE 5%-WATER - 250 ML IVPB SCH ×2 (12:38→23:30)
--- NOTE | 2017-10-13 13:28 | CON.CARD ---
Consult Consult Specialty:: Cardiology - History of Present Illness History of Present Illness: 51 year old gentleman with PMhx of metastatic adenocarcinoma of the lung who presented with complaints of back pain and found to have metastatic disease on his thoracic spine could not complete RT now with bacteremia, opacification of his lung, new CVA with dysarthria and LEIDA with Cr of 1.5, placed on Abx (zosyn, Vanco) for Vanco. 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 No: O2 Dependent Renal/: Yes: Other (hyponatremia) Musculoskeletal: Yes: Other (right rib cage pains) Endocrine: Yes: Hypothyroidism. No: Diabetes Mellitus - Alcohol/Substance Use Hx Alcohol Use: No History of Substance Use: reports: None - Smoking History Smoking history: Current every day smoker Have you smoked in the past 12 months: Yes Aproximately how many cigarettes per day: 4 If you are a former smoker, when did you quit?: 1 wk ago - Social History History of Recent Travel: No Home Medications - Allergies Allergies/Adverse Reactions: Allergies Allergy/AdvReac Type Severity Reaction Status Date / Time No Known Allergies Allergy Verified 09/27/17 19:59 - Home Medications Home Medications: Ambulatory Orders Levothyroxine [Synthroid -] 100 mcg PO DAILY 03/10/17 Magnesium Oxide 400 mg PO BID 03/10/17 Omeprazole 20 mg PO BID 03/10/17 Morphine Sulfate [Morphine Sulfate ER] 15 mg PO TID 09/05/17 Oxycodone HCl/Acetaminophen [Oxycodon-Acetaminophen 7.5-300] 2 each PO DAILY 10/10 Dexamethasone [Decadron -] 4 mg PO Q6H #120 tablet 09/10/17 Folic Acid - 1 mg PO DAILY #30 tablet 09/10/17 Mirtazapine [Remeron -] 15 mg PO HS tablet 09/10/17 Pantoprazole Sodium [Protonix -] 20 mg PO BID tablet.ec 09/10/17 Lidocaine 5% Patch [Lidoderm -] 1 patch TP DAILY #7 patch 09/27/17 Gabapentin [Neurontin] 100 mg PO TID #90 capsule 10/01/17 Review of Systems Unable to obtain ROS, reason: CLinical condition Vital Signs: Vital Signs Temperature 98.4 F 10/13/17 07:32 Pulse Rate 102 H 10/13/17 07:32 Respiratory Rate 24 10/13/17 07:32 Blood Pressure 102/64 10/13/17 07:32 O2 Sat by Pulse Oximetry (%) 90 L 10/13/17 00:30 Constitutional: Yes: No Distress, Calm Neck: Yes: Supple Respiratory: Yes: Regular, Diminished Gastrointestinal: Yes: Normal Bowel Sounds, Soft Cardiovascular: Yes: Regular Rate and Rhythm JVD: No Carotid Bruit: No Heart Sounds: Yes: S1, S2 Murmur: Yes: Systolic Murmur, Grade 1 Edema: No - Other Data Labs, Other Data: CBC, BMP 10/13/17 05:35 10/13/17 05:35 INR, PTT INR 1.01 (0.82-1.09) 10/12/17 06:00 ST @ 123 PVC Imaging - Results Chest X-ray: Report Reviewed (Right-sided white-out) Cat Scan: Report Reviewed (Acute right parietal and left psoterior temporal strokes) Problem List - Problems (1) Gram-positive bacteremia Code(s): R78.81 - BACTEREMIA (2) Metastatic lung cancer (metastasis from lung to other site) Code(s): C34.90 - MALIGNANT NEOPLASM OF UNSP PART OF UNSP BRONCHUS OR LUNG (3) Acquired pancytopenia Code(s): D61.818 - OTHER PANCYTOPENIA (4) Anemia Code(s): D64.9 - ANEMIA, UNSPECIFIED Qualifiers: Bone marrow failure anemia type: pancytopenia, antineoplastic chemotherapy- induced (5) Atelectasis Code(s): J98.11 - ATELECTASIS (6) Cerebrovascular disease in cancer patient Code(s): I67.9 - CEREBROVASCULAR DISEASE, UNSPECIFIED; C80.1 - MALIGNANT ( PRIMARY) NEOPLASM, UNSPECIFIED (7) Hypothyroidism Code(s): E03.9 - HYPOTHYROIDISM, UNSPECIFIED Qualifiers: Hypothyroidism type: unspecified Qualified Code(s): E03.9 - Hypothyroidism , unspecified (8) Metastatic adenocarcinoma Code(s): C79.9 - SECONDARY MALIGNANT NEOPLASM OF UNSPECIFIED SITE (9) Obstructive pneumonia Code(s): J18.9 - PNEUMONIA, UNSPECIFIED ORGANISM (10) Primary lung adenocarcinoma Code(s): C34.90 - MALIGNANT NEOPLASM OF UNSP PART OF UNSP BRONCHUS OR LUNG Qualifiers: Laterality: unspecified laterality Qualified Code(s): C34.90 - Malignant neoplasm of unspecified part of unspecified bronchus or lung (11) Thrombocytopenia Code(s): D69.6 - THROMBOCYTOPENIA, UNSPECIFIED Assessment/Plan 1. Acute strokes r/o embolic 2. Adenoca of Lung with spinal mets 3. MSSA bacteremia 4. Hypothyroidism 5. Anemia, Thrombocytopenia 6. LEIDA 7. Right lung opacification - ATX, vs post-obstruction PNA vs large airway mucous plugging P:1. F/u brain MRI, TTE poor quality, not ideal candidate for DANNI given extent of underlying disease and co-morbid conditions 2. Monitor telemetry r/o PAF 3. Abx per ID, f/u C&S for clearance 4. Hydration, transfuse for Hgb<8.0, observe monitor renal recovery 5. Chest PT, O2 to keep saO2>90%, BD as needed 6. Thank you for consultative opportunity
--- NOTE | 2017-10-13 13:58 | CON.PULM ---
Consult Consult Specialty:: PULMONARY Referred by:: VANESSA Reason for Consultation:: OPACIFICATION RIGHT LUNG - History of Present Illness History of Present Illness: 51 yo M with h/o COPD, hypothyroidism, and adenocarcinoma with metastasis to adrenals, left cerebellum, and spine s/p chemoradiation and radiation therapy for spinal mets who presents with back pain. Patient reports mid thoracic back pain, sharp. Denies loss of bowel/bladder function or urinary retention. Denies back trauma or fall. Patient denies weakness, but pain aggravated with ambulation, movement, and pressure. Denies N/V, fevers/chills, diarrhea constipation, abdominal pain, chest pain, SOB, lightheadedness, vertigo. Patient recent admission (09/27-10/01). Pain refractory to home regimen Fentanyl 25 mcg patch, Morphine [address] Spine ( 09/09/17) reveals lytic metastasis within the left half of the T10 vertebral body extending into the left pedicle with ventral epidural extension of neoplasm measuring up proximally 3 mm in thickness and extending into the left T9-T10 neural foramen, partially surrounding the exiting left T9 nerve root. Pathologic compression fracture of the left half of T10 with mild loss of height. Lytic metastasis within the right S1 and S2 vertebra with enhancing neoplasm surrounding the exiting right S1 nerve root. Ill-defined lucent lesion in the right half of the sacral body is suspicious for additional metastasis. Correlate with PET/CT to better assess for extent of lytic osseous metastasis. Patient was scheduled to have outpatient MRI, but refused d/t claustrophobia. We have been asked to evaluate due to opacification of right lung.Patient admitted for pain management. 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 No: O2 Dependent Gastrointestinal: Yes: Cancer (liver). No: Ascites Renal/: Yes: Renal Inusuff, Other (hyponatremia) Heme/Onc: Yes: Anemia Musculoskeletal: Yes: Other (right rib cage pains) Endocrine: Yes: Hypothyroidism. No: Diabetes Mellitus - Alcohol/Substance Use Hx Alcohol Use: No History of Substance Use: reports: None - Smoking History Smoking history: Current every day smoker Have you smoked in the past 12 months: Yes Aproximately how many cigarettes per day: 4 If you are a former smoker, when did you quit?: 1 wk ago - Social History Place of : [facility] History of Recent Travel: No Home Medications - Allergies Allergies/Adverse Reactions: Allergies Allergy/AdvReac Type Severity Reaction Status Date / Time No Known Allergies Allergy Verified 09/27/17 19:59 - Home Medications Home Medications: Ambulatory Orders Levothyroxine [Synthroid -] 100 mcg PO DAILY 03/10/17 Magnesium Oxide 400 mg PO BID 03/10/17 Omeprazole 20 mg PO BID 03/10/17 Morphine Sulfate [Morphine Sulfate ER] 15 mg PO TID 09/05/17 Oxycodone HCl/Acetaminophen [Oxycodon-Acetaminophen 7.5-300] 2 each PO DAILY 10/10 Dexamethasone [Decadron -] 4 mg PO Q6H #120 tablet 09/10/17 Folic Acid - 1 mg PO DAILY #30 tablet 09/10/17 Mirtazapine [Remeron -] 15 mg PO HS tablet 09/10/17 Pantoprazole Sodium [Protonix -] 20 mg PO BID tablet.ec 09/10/17 Lidocaine 5% Patch [Lidoderm -] 1 patch TP DAILY #7 patch 09/27/17 Gabapentin [Neurontin] 100 mg PO TID #90 capsule 10/01/17 Family Disease History - Family Disease History Family History: Unable to Obtain Review of Systems Unable to obtain ROS, reason: unable Physical Exam Vital Sings: Vital Signs Temperature 98.4 F 10/13/17 07:32 Pulse Rate 102 H 10/13/17 07:32 Respiratory Rate 24 10/13/17 07:32 Blood Pressure 102/64 10/13/17 07:32 O2 Sat by Pulse Oximetry (%) 90 L 10/13/17 00:30 Constitutional: Yes: Anxious, Mild Distress, Poor Hygeine Eyes: Yes: EOM Intact HENT: Yes: Atraumatic Neck: Yes: Other (trachea deviated to right) Cardiovascular: Yes: Regular Rate and Rhythm, S1, S2 Respiratory: Yes: Diminished (on right) Gastrointestinal: Yes: Soft Edema: No Neurological: Yes: Weakness, Other (dysarthric speech) Labs: CBC, BMP 10/13/17 05:35 10/13/17 05:35 ABG Results ABG pH 7.45 (7.35-7.45) 10/13/17 01:20 ABG pCO2 at Pt Temp 41.4 mmHg (35-45) 10/13/17 01:20 ABG pO2 at Pt Temp 76.0 mmHg (80-100) L 10/13/17 01:20 ABG HCO3 28.6 meq/L (22-26) H 10/13/17 01:20 ABG O2 Sat (Measured) 94.9 % (90-98.9) 10/13/17 01:20 ABG O2 Content 9.5 % vol (15-22) L* 10/13/17 01:20 ABG Base Excess 4.7 meq/l (-2-2) H 10/13/17 01:20 all labs reviewed Imaging - Results Chest X-ray: Report Reviewed, Image Reviewed Cat Scan: Report Reviewed Problem List - Problems (1) Gram-positive bacteremia Code(s): R78.81 - BACTEREMIA (2) Metastatic lung cancer (metastasis from lung to other site) Code(s): C34.90 - MALIGNANT NEOPLASM OF UNSP PART OF UNSP BRONCHUS OR LUNG (3) Intractable back pain Code(s): M54.9 - DORSALGIA, UNSPECIFIED (4) Anemia Code(s): D64.9 - ANEMIA, UNSPECIFIED Qualifiers: Bone marrow failure anemia type: pancytopenia, antineoplastic chemotherapy- induced (5) Atelectasis Code(s): J98.11 - ATELECTASIS (6) Bone metastases Code(s): C79.51 - SECONDARY MALIGNANT NEOPLASM OF BONE (7) Brain metastases Code(s): C79.31 - SECONDARY MALIGNANT NEOPLASM OF BRAIN (8) COPD (chronic obstructive pulmonary disease) Code(s): J44.9 - CHRONIC OBSTRUCTIVE PULMONARY DISEASE, UNSPECIFIED Qualifiers: COPD type: unspecified COPD Qualified Code(s): J44.9 - Chronic obstructive pulmonary disease, unspecified (9) Cerebrovascular disease in cancer patient Code(s): I67.9 - CEREBROVASCULAR DISEASE, UNSPECIFIED; C80.1 - MALIGNANT ( PRIMARY) NEOPLASM, UNSPECIFIED Assessment/Plan RIGHT LUNG OPACIFICATION ON BASIS OF ATELECTASIS PROGRESSION OF TUMOR WITH POST OBSTRUCTION VS LARGE AIRWAY MUCOUS PLUGGING GIVEN EXTENT OF UNDERLYING DISEASE AND CO-MORBID CONDITIONS WOULD NOT BE AN OPTIMUM CANDIDATE FOR FOB WOULD INITIATE CHEST PT/AND TRIAL OF MUCOMYST FOLLOW UP CXR/NEEDS O2 SUPPLEMENTATION TO KEEP SAT >90% WILL FOLLOW, Shawn CORTÉS MD
[2017-10-13] MEDS: LIDOCAINE 5% TOPICAL PATCH TP SCH (15:27)
[2017-10-13 17:12] LABS: URINE APPEARANCE CLEAR; URINE BILIRUBIN NEGATIVE (NEGATIVE); URINE BLOOD 1+ (NEGATIVE); URINE COLOR LTYELLOW; URINE GLUCOSE (UA) NEGATIVE (NEGATIVE); URINE KETONE NEGATIVE (NEGATIVE); URINE LEUK ESTERASE NEGATIVE (NEGATIVE); URINE NITRITE NEGATIVE (NEGATIVE); URINE PROTEIN NEGATIVE (NEGATIVE); URINE UROBILINOGEN NEGATIVE mg/dL (0.2-1.0)
[2017-10-13 17:18] LABS: INR 1.27 (0.82-1.09); PROTHROMBIN TIME (PATIENT) 14.3 SEC (9.98-11.88)
[2017-10-13 17:56] LABS: URINE MUCUS RARE
[2017-10-13] MEDS ORDERED: ACETAMINOPHEN 650 MG SUPP.RECT NR PRN (18:10)
[2017-10-13] MEDS ORDERED: ACETAMINOPHEN 650 MG SUPP.RECT RC PRN (18:16)
[2017-10-13] MEDS ORDERED: ACETAMINOPHEN 1000 MG/100 ML VIAL (NON FORMULARY) IVPB ONE (18:24)
--- NOTE | 2017-10-13 18:49 | CONSULT ---
Consult - text type - Consultation Consultation Note: NEUROLOGY CONSULTATION is greatly appreciated: This 51 yo man with h/o COPD and hypothyroidism has adenoca of the lungs since 2016. Refractory to ChemoRx and Kaytdruda. 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 Chronic thrombocytopenia. Developed mid-back pain in Aug due to T1o met with epidural extension to the left. Started paliative Rt but completed only 3 of 10 Rx. On decadron 4 QID, fentanyl, dilaudid, gabapentin, oxycodone. Now admitted 10/07 with increased pain Now with increased confusion, dropping HCT, and gram + catheter sepsis. On Zosyn , Vanco. CT of head (reviewed):B/L cerebellar lucenicies, faint Hypodensity in the distal Right MCA-territory (possible embolic CVA?) without mass effect. EXAM: Scattered ecchymosis, left elbow swelling. No bruits. Cor reg. Neck supple. -Kernigs. Awake, alert, dysarthric grunting but attends and follows commands. [facility] Oct, 2016 Full berry. No facial weakness. Gag present Moves all 4's well. Symmetrical grasps (5/5). Normal ankle dorsiflexion. Reduced reflexes in legs. Absent AJ's. Downgoing toes. Feels pinch all fours. IMP: Mild-Moderate, B/L cerebral dysfunction without obvious focality. Possible new Right MCA ischemia by CT. Embolism? Toxic-Metabolic encephalopathy due to narcotics, sepsis. Doubt meningitis but cannot fully exclude. Suggest: Repeat CT of head (with contrast if renal function allows) to delineate possible stroke and r/o mets. Check B12, TSH, T4, D-Dimer. Consider hypercoagulable state/ DIC even in the presence of thrombocytopenia. 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 Consider thiamine supplementation in IV fluids. Thank you very much, David Husain MD
--- NOTE | 2017-10-13 21:01 | CONSULT ---
Consult Consult Specialty:: Pulm/CCM Reason for Consultation:: CVA - History of Present Illness Chief Complaint: Gneralized pain 07/04 History of Present Illness: 51 yom with PMHx pf COPD and hypothyroidism diagnosed with stage 4 anenocarcinoma of the lungs since 2016 with mets to brain (s/p gamma knife Rx to the cerebellum), adrenals, pelvis and spine. Admitted 10/07 with increased back pain d/t spinal mets. Has had mediport for IV infusion that has been c/b episodes of bacteremia. He developed increased confusion, severe anemia and thrombocytepenia in the setting of new MSSA bacteremia. CT head + for hypodensity in right MCA with c/f stroke. Seen by neuro and cardiology consults. He is transferred to ICU for further management. Labs notable WBC 18, Plt 17, hgb 6.8. In ICU rec'd 1U Plts and 1U PRBC hgb 6.8-> 8.7 and plts 17->36. Speech slurred. No asymetry noted in facial features or in movement or strength. Restless. Able to stand OOB without assist. 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 No: O2 Dependent Gastrointestinal: Yes: Cancer (liver). No: Ascites Renal/: Yes: Other (hyponatremia) Musculoskeletal: Yes: Other (right rib cage pains) Endocrine: Yes: Hypothyroidism. No: Diabetes Mellitus - Alcohol/Substance Use Hx Alcohol Use: No History of Substance Use: reports: None - Smoking History Smoking history: Current every day smoker Have you smoked in the past 12 months: Yes Aproximately how many cigarettes per day: 4 If you are a former smoker, when did you quit?: 1 wk ago - Social History History of Recent Travel: No Home Medications - Allergies Allergies/Adverse Reactions: Allergies Allergy/AdvReac Type Severity Reaction Status Date / Time No Known Allergies Allergy Verified 09/27/17 19:59 - Home Medications Home Medications: Ambulatory Orders Levothyroxine [Synthroid -] 100 mcg PO DAILY 03/10/17 Magnesium Oxide 400 mg PO BID 03/10/17 Omeprazole 20 mg PO BID 03/10/17 Morphine Sulfate [Morphine Sulfate ER] 15 mg PO TID 09/05/17 Oxycodone HCl/Acetaminophen [Oxycodon-Acetaminophen 7.5-300] 2 each PO DAILY 10/10 Dexamethasone [Decadron -] 4 mg PO Q6H #120 tablet 09/10/17 Folic Acid - 1 mg PO DAILY #30 tablet 09/10/17 Mirtazapine [Remeron -] 15 mg PO HS tablet 09/10/17 Pantoprazole Sodium [Protonix -] 20 mg PO BID tablet.ec 09/10/17 Lidocaine 5% Patch [Lidoderm -] 1 patch TP DAILY #7 patch 09/27/17 Gabapentin [Neurontin] 100 mg PO TID #90 capsule 10/01/17 Family Disease History - Family Disease History Family History: Unable to Obtain Review of Systems Unable to obtain ROS, reason: Uncooperative, delirious Physical Exam Vital Signs: Vital Signs Temperature 98 F 10/13/17 14:40 Pulse Rate 110 H 10/13/17 14:40 Respiratory Rate 22 10/13/17 14:40 Blood Pressure 101/69 10/13/17 14:40 O2 Sat by Pulse Oximetry (%) 96 10/13/17 18:48 Constitutional: Yes: Well Nourished, No Distress Eyes: Yes: Conjunctiva Clear HENT: Yes: Normocephalic Neck: Yes: Supple, Trachea Midline Cardiovascular: Yes: Regular Rate and Rhythm, Tachycardia, S1, S2 Respiratory: Yes: CTA Bilaterally, On Nasal O2 Gastrointestinal: Yes: Normal Bowel Sounds, Soft Renal/: Yes: [place] Present Extremities: Yes: WNL Edema: No Peripheral Pulses WNL: Yes Integumentary: Yes: Bruising (ecchymoses on bilat UE) Neurological: Yes: Confusion, Dysarthria, Other (no asymetry noted. Slurring of speech and restless. Able to stand at side of bed without assistance.) ...Motor Strength: WNL Labs: CBC, BMP 10/13/17 05:35 10/13/17 05:35 CBC,CMP WBC 10.1 K/mm3 (4.0-10.0) H D 10/13/17 21:15 RBC 3.75 M/mm3 (4.00-5.60) L 10/13/17 21:15 Hgb 8.7 GM/dL (11.7-16.9) L D 10/13/17 21:15 Hct 27.3 % (35.4-49) L D 10/13/17 21:15 MCV 72.9 fl (80-96) L 10/13/17 21:15 MCH 23.1 pg (25.7-33.7) L 10/13/17 21:15 MCHC 31.7 g/dl (32.0-35.9) L 10/13/17 21:15 RDW 20.8 % (11.9-15.9) H D 10/13/17 21:15 Plt Count 36 K/MM3 (134-434) L* D 10/13/17 21:15 MPV 8.8 fl (7.5-11.1) 10/13/17 21:15 Total Counted 100 10/11/17 13:44 Neutrophils % 96.2 % (42.8-82.8) H 10/13/17 05:35 Neutrophils % (Manual) 93.0 % (42.8-82.8) H* 10/11/17 13:44 Band Neutrophils % 3.0 % 10/11/17 13:44 Lymphocytes % 0.8 % (8-40) L 10/13/17 05:35 Lymphocytes % (Manual) 1.0 % (8-40) L D 10/11/17 13:44 Monocytes % 2.7 % (3.8-10.2) L 10/13/17 05:35 Monocytes % (Manual) 3 % (3.8-10.2) L 10/11/17 13:44 Eosinophils % 0.1 % (0-4.5) D 10/13/17 05:35 Basophils % 0.2 % (0-2.0) 10/13/17 05:35 Differential Comment Man diff performed 10/11/17 13:44 Manual Slide Review Yes 10/10/17 09:00 Hypochromia 2+ 10/11/17 13:44 Platelet Estimate 10/11/17 13:44 Platelet Comment 10/11/17 13:44 Polychromasia 1+ 10/11/17 13:44 Poikilocytosis 2+ 10/11/17 13:44 Basophilic Stippling Few 10/11/17 13:44 Anisocytosis 1+ 10/11/17 13:44 Macrocytosis 1+ 10/11/17 13:44 Target Cells 1+ 10/11/17 13:44 Tear Drop Cells Rare 10/11/17 13:44 Ovalocytes 1+ 10/11/17 13:44 Sodium 136 mmol/L (136-145) 10/13/17 05:35 Potassium 4.0 mmol/L (3.5-5.1) 10/13/17 05:35 Chloride 97 mmol/L (98-107) L 10/13/17 05:35 Carbon Dioxide 29 mmol/L (21-32) 10/13/17 05:35 Anion Gap 10 (8-16) 10/13/17 05:35 BUN 42 mg/dL (7-18) H D 10/13/17 05:35 Creatinine 1.5 mg/dL (0.7-1.3) H D 10/13/17 05:35 Creat Clearance w eGFR 48.95 (>60) 10/13/17 05:35 Random Glucose 91 mg/dL (74-106) 10/13/17 05:35 Calcium 8.2 mg/dL (8.5-10.1) L 10/13/17 05:35 Total Bilirubin 0.4 mg/dL (0.2-1.0) D 10/13/17 05:35 AST 78 U/L (15-37) H D 10/13/17 05:35 ALT 65 U/L (12-78) D 10/13/17 05:35 Alkaline Phosphatase 90 U/L (45-117) 10/13/17 05:35 C-Reactive Protein 14.3 MG/DL (0.00-0.3) H 10/13/17 05:35 Total Protein 5.1 g/dl (6.4-8.2) L 10/13/17 05:35 Albumin 2.0 g/dl (3.4-5.0) L 10/13/17 05:35 Triglycerides 367 mg/dL (35-160) H 10/13/17 05:35 Cholesterol 148 mg/dL (50-200) 10/13/17 05:35 Total LDL Cholesterol 57 mg/dL (5-100) 10/13/17 05:35 HDL Cholesterol 49 mg/dL (40-60) 10/13/17 05:35 Microbiology 10/11/17 21:00 Urine - Urine Clean Catch Urine Culture - Final NO GROWTH OBTAINED 10/11/17 Unknown Blood - Central Line Blood Culture - Preliminary Presumptive Mssa (Pbp2a Neg) 10/11/17 Unknown Blood - Central Line Blood Culture - Preliminary Presumptive Mssa (Pbp2a Neg) 10/12/17 21:45 Blood - Peripheral Venous Blood Culture - Preliminary Pending Organism 10/12/17 21:25 Blood - Peripheral Venous Blood Culture - Preliminary Pending Organism Initial Vital Signs Temp Pulse Resp BP Pulse Ox 98.2 F 88 25 H 107/59 91 L 10/07/17 17:25 10/07/17 17:25 10/07/17 17:25 10/07/17 17:25 10/07/17 17:25 Current Medications Dexamethasone (Decadron -) 4 mg PO TID [facility] Last Admin: 10/13/17 22:30 Dose: Not Given Fentanyl (Duragesic 25mcg Patch -) 1 patch TD Q72H [facility] Stop: 10/19/17 19:32 Last Admin: 10/12/17 22:11 Dose: Not Given Folic Acid (Folic Acid -) 1 mg PO DAILY [facility] Last Admin: 10/13/17 11:56 Dose: Not Given Gabapentin (Neurontin -) 200 mg PO TID [facility] Last Admin: 10/13/17 20:10 Dose: Not Given Hydromorphone HCl (Dilaudid Injection -) 3 mg IVPB Q4H PRN PRN Reason: PAIN Last Admin: 10/14/17 01:54 Dose: 3 mg Vancomycin HCl 1,000 mg/ (Dextrose) 250 mls @ 250 mls/hr IVPB BID [facility] PRN Reason: Protocol Last Admin: 10/13/17 23:30 Dose: 250 mls/hr Piperacillin Sod/Tazobactam (Sod 4.5 gm/ Dextrose) 100 mls @ 200 mls/hr IVPB Q8H-IV [facility] PRN Reason: Protocol Last Admin: 10/14/17 01:07 Dose: 200 mls/hr Sodium Chloride (Normal Saline -) 1,000 mls @ 83 mls/hr IV ASDIR [facility] Last Admin: 10/13/17 18:10 Dose: 83 mls/hr Levothyroxine Sodium (Synthroid -) 100 mcg PO DAILY@0700 [facility] Last Admin: 10/13/17 06:01 Dose: Not Given Lidocaine (Lidoderm Patch -) 1 patch TP DAILY [facility] Last Admin: 10/13/17 15:27 Dose: 1 patch Magnesium Oxide (Mag-Ox -) 400 mg PO BID [facility] Last Admin: 10/13/17 22:30 Dose: Not Given Mirtazapine (Remeron -) 15 mg PO HS [facility] Last Admin: 10/13/17 22:30 Dose: Not Given Miscellaneous (Lidoderm Patch Removal) 1 each MC DAILY@2200 [facility] Last Admin: 10/13/17 22:30 Dose: 1 each Miscellaneous (Duragesic Patch Waste) 1 each MC PRN PRN PRN Reason: PAIN Morphine Sulfate (Ms Contin -) 15 mg PO TID [facility] Last Admin: 10/13/17 22:10 Dose: Not Given Pantoprazole Sodium (Protonix -) 40 mg PO DAILY [facility] Last Admin: 10/13/17 11:56 Dose: Not Given Imaging - Results Cat Scan: Report Reviewed (CT of head:B/L cerebellar lucenicies, faint Hypodensity in the distal Right MCA-territory, without mass effect.) Problem List - Problems (1) Back pain Code(s): M54.9 - DORSALGIA, UNSPECIFIED Qualifiers: Back pain location: thoracic back pain Chronicity: chronic (2) Gram-positive bacteremia Code(s): R78.81 - BACTEREMIA (3) Intractable back pain Code(s): M54.9 - DORSALGIA, UNSPECIFIED (4) Metastatic lung cancer (metastasis from lung to other site) Code(s): C34.90 - MALIGNANT NEOPLASM OF UNSP PART OF UNSP BRONCHUS OR LUNG (5) Acquired pancytopenia Code(s): D61.818 - OTHER PANCYTOPENIA (6) Anemia Code(s): D64.9 - ANEMIA, UNSPECIFIED Qualifiers: Bone marrow failure anemia type: pancytopenia, antineoplastic chemotherapy- induced (7) Bacteremia Code(s): R78.81 - BACTEREMIA (8) COPD (chronic obstructive pulmonary disease) Code(s): J44.9 - CHRONIC OBSTRUCTIVE PULMONARY DISEASE, UNSPECIFIED Qualifiers: COPD type: unspecified COPD Qualified Code(s): J44.9 - Chronic obstructive pulmonary disease, unspecified (9) Cerebrovascular disease in cancer patient Code(s): I67.9 - CEREBROVASCULAR DISEASE, UNSPECIFIED; C80.1 - MALIGNANT ( PRIMARY) NEOPLASM, UNSPECIFIED (10) Hypothyroidism Code(s): E03.9 - HYPOTHYROIDISM, UNSPECIFIED Qualifiers: Hypothyroidism type: unspecified Qualified Code(s): E03.9 - Hypothyroidism , unspecified (11) Lung cancer Code(s): C34.90 - MALIGNANT NEOPLASM OF UNSP PART OF UNSP BRONCHUS OR LUNG Qualifiers: Laterality: unspecified laterality Lung location: unspecified part of lung Qualified Code(s): C34.90 - Malignant neoplasm of unspecified part of unspecified bronchus or lung (12) Metastatic adenocarcinoma Code(s): C79.9 - SECONDARY MALIGNANT NEOPLASM OF UNSPECIFIED SITE Assessment/Plan 51 yom with PMHx pf COPD and hypothyroidism diagnosed with stage 4 anenocarcinoma of the lungs since 2016 with mets to brain (s/p gamma knife Rx to the cerebellum), adrenals, pelvis and spine. Admitted 10/07 with increased back pain d/t spinal mets. Transferred to ICU with AMS 2/2 possible stroke as e /b hypodensity on CT +/- toxic metabolic encephlopathy 2/2 MSSA bacteremia and meds. Ccb severe anemia and thrombocytepenia. Plan: Neuro/ID: AMS in setting of possible stroke +/- encephalopathy -Neuro following apprec recs -Repeat CT/MRI head to confirm stroke vs mets -Cont decadron -Neuro checks -NPO for now 2/2 slurring c/f dysphagia -Dysphagia eval -f/u cxls -ID consult -Continue empiric antib coverage for gram+ bacteremia -Haldol prn for delirium agitation -Cont fent patch and Dilaudid IV for pain management -IR for source control if infected central line Heme: Severe anemia and thrombocytepenia in setting of sepsis -Monitor CBC, coags and fibrinogen -Transfuse for Hgb<8, Plts<20 CV: Hypotension 2/2 sepsis +/- sedation -Fluid bolus prn -Trend Lactate -Vasopressors as needed for MAP>60 Endo: Hypycemia on seroids; hypothyroidism -Check TSH, -Cont synthroid -Fingersticks q6 Proph:SCDs -PPI LONNY Deleon CC time 35mins
[2017-10-13] MEDS ORDERED: SODIUM CHLORIDE 1,000 ML IV STA (21:11)
[2017-10-13 21:39] LABS: HEMATOCRIT 27.3 % (35.4-49); HEMOGLOBIN 8.7 GM/dL (11.7-16.9); MCH 23.1 pg (25.7-33.7); MCHC 31.7 g/dl (32.0-35.9); MEAN CELL VOLUME 72.9 fl (80-96); MEAN PLT VOLUME 8.8 fl (7.5-11.1); RBC 3.75 M/mm3 (4.00-5.60); RDW 20.8 % (11.9-15.9); WHITE BLOOD COUNT 10.1 K/mm3 (4.0-10.0)
[2017-10-13] MEDS ORDERED: PT OWN MED DRAWER 7, Y5N ONE (21:39)
[2017-10-13 21:45] LABS: PLATELET COUNT 36 K/MM3 (134-434)
[2017-10-13] MEDS ORDERED: DEXAMETHASONE SOD PHOSPHATE 4 MG/1 ML VIAL IVPUSH ONE (21:50)
[2017-10-13] MEDS: LIDOCAINE PATCH REMOVAL MC SCH (22:30)
--- NOTE | 2017-10-13 23:32 | PN ---
Progress Note, Physician - Current Medication List Current Medications: Active Medications Dexamethasone (Decadron -) 4 mg PO TID [facility] Last Admin: 10/13/17 15:28 Dose: Not Given Fentanyl (Duragesic 25mcg Patch -) 1 patch TD Q72H [facility] Stop: 10/19/17 19:32 Last Admin: 10/12/17 22:11 Dose: Not Given Folic Acid (Folic Acid -) 1 mg PO DAILY [facility] Last Admin: 10/13/17 11:56 Dose: Not Given Gabapentin (Neurontin -) 200 mg PO TID [facility] Last Admin: 10/13/17 15:27 Dose: Not Given Hydromorphone HCl (Dilaudid Injection -) 2 mg IVPB Q4H PRN PRN Reason: PAIN Last Admin: 10/13/17 22:11 Dose: 2 mg Vancomycin HCl 1,000 mg/ (Dextrose) 250 mls @ 250 mls/hr IVPB BID [facility] PRN Reason: Protocol Last Admin: 10/13/17 12:38 Dose: 250 mls/hr Piperacillin Sod/Tazobactam (Sod 4.5 gm/ Dextrose) 100 mls @ 200 mls/hr IVPB Q8H-IV [facility] PRN Reason: Protocol Last Admin: 10/13/17 21:00 Dose: 200 mls/hr Sodium Chloride (Normal Saline -) 1,000 mls @ 83 mls/hr IV ASDIR [facility] Last Admin: 10/13/17 18:10 Dose: 83 mls/hr Levothyroxine Sodium (Synthroid -) 100 mcg PO DAILY@0700 [facility] Last Admin: 10/13/17 06:01 Dose: Not Given Lidocaine (Lidoderm Patch -) 1 patch TP DAILY [facility] Last Admin: 10/13/17 15:27 Dose: 1 patch Magnesium Oxide (Mag-Ox -) 400 mg PO BID [facility] Last Admin: 10/13/17 11:56 Dose: Not Given Mirtazapine (Remeron -) 15 mg PO HS [facility] Last Admin: 10/13/17 00:30 Dose: Not Given Miscellaneous (Lidoderm Patch Removal) 1 each MC DAILY@2200 [facility] Last Admin: 10/12/17 22:54 Dose: 1 each Miscellaneous (Duragesic Patch Waste) 1 each [facility] PRN PRN PRN Reason: PAIN Morphine Sulfate (Ms Contin -) 15 mg PO TID [facility] Last Admin: 10/13/17 14:59 Dose: Not Given Pantoprazole Sodium (Protonix -) 40 mg PO DAILY [facility] Last Admin: 10/13/17 11:56 Dose: Not Given - Objective Vital Signs: Vital Signs Temperature 98 F 10/13/17 14:40 Pulse Rate 110 H 10/13/17 14:40 Respiratory Rate 22 10/13/17 14:40 Blood Pressure 101/69 10/13/17 14:40 O2 Sat by Pulse Oximetry (%) 96 10/13/17 18:48 Labs: CBC, BMP 10/13/17 21:15 10/13/17 05:35 INR, PTT INR 1.27 (0.82-1.09) H 10/13/17 16:00 Problem List - Problems (1) Intractable back pain Code(s): M54.9 - DORSALGIA, UNSPECIFIED (2) Thrombocytopenia Code(s): D69.6 - THROMBOCYTOPENIA, UNSPECIFIED (3) Metastatic adenocarcinoma Code(s): C79.9 - SECONDARY MALIGNANT NEOPLASM OF UNSPECIFIED SITE (4) Anemia Code(s): D64.9 - ANEMIA, UNSPECIFIED Qualifiers: Bone marrow failure anemia type: pancytopenia, antineoplastic chemotherapy- induced (5) COPD (chronic obstructive pulmonary disease) Code(s): J44.9 - CHRONIC OBSTRUCTIVE PULMONARY DISEASE, UNSPECIFIED Qualifiers: COPD type: unspecified COPD Qualified Code(s): J44.9 - Chronic obstructive pulmonary disease, unspecified (6) Hypothyroidism Code(s): E03.9 - HYPOTHYROIDISM, UNSPECIFIED Qualifiers: Hypothyroidism type: unspecified Qualified Code(s): E03.9 - Hypothyroidism , unspecified
[2017-10-14] MEDS ORDERED: HALOPERIDOL LACTATE 5 MG/ML IM ONE (00:35)
[2017-10-14] MEDS ORDERED: HALOPERIDOL LACTATE 5 MG/ML IVPUSH ONE (00:35)
[2017-10-14] MEDS: PIPERACILLIN/TAZOB 4.5 GM 4.5 GM in DEXTROSE 5%-WATER - 100 ML IVPB SCH (01:07)
[2017-10-14] MEDS: HYDROmorphone HCL CARPU-JECT 2 MG/1 ML DISP.SYRIN IVPB PRN ×4 (01:54→20:37)
[2017-10-14] MEDS: GABAPENTIN 100 MG CAPSULE (FP) PO SCH ×3 (05:38→21:53)
[2017-10-14] MEDS: morphine SO4 SUSTAINED ACTING 15 MG TABLET.SA PO SCH ×3 (05:38→21:56)
[2017-10-14] MEDS: DEXAMETHASONE 4 MG TABLET (FP) PO SCH ×3 (05:38→21:54)
[2017-10-14 06:28] LABS: BASO % 0.4 % (0-2.0); EOS % 0.1 % (0-4.5); HEMOGLOBIN 8.8 GM/dL (11.7-16.9); LYMPH % 0.6 % (8-40); MCH 22.9 pg (25.7-33.7); MCHC 31.3 g/dl (32.0-35.9); MEAN CELL VOLUME 73.2 fl (80-96); MEAN PLT VOLUME 8.4 fl (7.5-11.1); MONO % 2.8 % (3.8-10.2); NEUT % 96.1 % (42.8-82.8); RBC 3.82 M/mm3 (4.00-5.60); RDW 20.2 % (11.9-15.9)
[2017-10-14] MEDS: LEVOTHYROXINE NA 100 MCG TABLET (FP) PO SCH (06:31)
[2017-10-14 06:36] LABS: PLATELET COUNT 31 K/MM3 (134-434)
[2017-10-14 06:46] LABS: ALBUMIN 1.9 g/dl (3.4-5.0); ANION GAP 10 (8-16); BLOOD UREA NITROGEN 25 mg/dL (7-18); CALCIUM 7.9 mg/dL (8.5-10.1); CHLORIDE 96 mmol/L (98-107); CO2 29 mmol/L (21-32); GLUCOSE,RANDOM 114 mg/dL (74-106); MAGNESIUM 1.6 mg/dL (1.8-2.4); POTASSIUM 3.1 mmol/L (3.5-5.1); SODIUM 135 mmol/L (136-145)
[2017-10-14 06:49] LABS: ALK PHOS 103 U/L (45-117); BILIRUBIN,TOTAL 0.5 mg/dL (0.2-1.0); CREATININE 0.9 mg/dL (0.7-1.3); PHOSPHOROUS 3.4 mg/dL (2.5-4.9); SGOT/AST 43 U/L (15-37); SGPT/ALT 65 U/L (12-78); TOT PROT 5.2 g/dl (6.4-8.2)
--- NOTE | 2017-10-14 08:46 | PN ---
Progress Note (short form) - Note Progress Note: NEUROSURGERY Transferred to ICU Frustrated by speech difficulty Wants to go home Sitting up in bed PE: T max 98.4, AF, ID 100-100; SBP 80-120 HEENT- NC/AT; Neck- supple; Cor- RRR; Lungs- CTA B; Abd- benign, + BS; Ext- no sign of DVT Garbled/dysarthric speech; following commands CN- intact except mild L lower facial asymmetry and tongue deviation to R; Motor - 4+/5 in UE/LE extremities, appears symmetric ; Sensation- intact LT; DTR- 1+ , no LTS Cr- from 1.5 to 0.9; eGFR > 60 Blood culture- 01/26 MSSA likely CXR- R lung opacity; R sided catheter in place CT T spine: L T10 metastatic involvement with T9-10 foramenal involvement as previously; mild loss of T10 vertebral height and mild anterior epidural extension Head CT- R lateral temporal and R lateral parietal cortical-subcortical hypodenisty with minimal mass effect (not present on 09-09-2017 scan); chronic cerebellar changes Multifocal mets from lung adenoCA Acute onset R MCA ischemia (? 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
--- NOTE | 2017-10-14 08:51 | PN ---
Progress Note, Physician Chief Complaint: ID Vancomycin and Ceftriaxone - Current Medication List Current Medications: Active Medications Dexamethasone (Decadron -) 4 mg PO TID [facility] Last Admin: 10/14/17 05:38 Dose: 4 mg Fentanyl (Duragesic 25mcg Patch -) 1 patch TD Q72H [facility] Stop: 10/19/17 19:32 Last Admin: 10/12/17 22:11 Dose: Not Given Folic Acid (Folic Acid -) 1 mg PO DAILY [facility] Last Admin: 10/13/17 11:56 Dose: Not Given Gabapentin (Neurontin -) 200 mg PO TID [facility] Last Admin: 10/14/17 05:38 Dose: 200 mg Hydromorphone HCl (Dilaudid Injection -) 3 mg IVPB Q4H PRN PRN Reason: PAIN Last Admin: 10/14/17 01:54 Dose: 3 mg Vancomycin HCl 1,000 mg/ (Dextrose) 250 mls @ 250 mls/hr IVPB BID [facility] PRN Reason: Protocol Last Admin: 10/13/17 23:30 Dose: 250 mls/hr Piperacillin Sod/Tazobactam (Sod 4.5 gm/ Dextrose) 100 mls @ 200 mls/hr IVPB Q8H-IV [facility] PRN Reason: Protocol Last Admin: 10/14/17 01:07 Dose: 200 mls/hr Sodium Chloride (Normal Saline -) 1,000 mls @ 83 mls/hr IV ASDIR [facility] Last Admin: 10/13/17 18:10 Dose: 83 mls/hr Levothyroxine Sodium (Synthroid -) 100 mcg PO DAILY@0700 [facility] Last Admin: 10/14/17 06:31 Dose: 100 mcg Lidocaine (Lidoderm Patch -) 1 patch TP DAILY [facility] Last Admin: 10/13/17 15:27 Dose: 1 patch Magnesium Oxide (Mag-Ox -) 400 mg PO BID [facility] Last Admin: 10/13/17 22:30 Dose: Not Given Mirtazapine (Remeron -) 15 mg PO HS [facility] Last Admin: 10/13/17 22:30 Dose: Not Given Miscellaneous (Lidoderm Patch Removal) 1 each MC DAILY@2200 [facility] Last Admin: 10/13/17 22:30 Dose: 1 each Miscellaneous (Duragesic Patch Waste) 1 each [facility] PRN PRN PRN Reason: PAIN Morphine Sulfate (Ms Contin -) 15 mg PO TID [facility] Last Admin: 10/14/17 05:38 Dose: 15 mg Pantoprazole Sodium (Protonix -) 40 mg PO DAILY [facility] Last Admin: 10/13/17 11:56 Dose: Not Given - Objective Vital Signs: Vital Signs Temperature 97.2 F L 10/14/17 06:00 Pulse Rate 99 H 10/14/17 06:00 Respiratory Rate 13 10/14/17 06:00 Blood Pressure 90/71 10/14/17 06:00 O2 Sat by Pulse Oximetry (%) 96 10/14/17 06:00 Constitutional: Yes: No Distress Eyes: No: Conjunctiva Clear Cardiovascular: Yes: Regular Rate and Rhythm, S1, S2. No: Murmur Respiratory: Yes: WNL, Regular, CTA Bilaterally, Diminished, Dullness, Rhonchi Gastrointestinal: Yes: Soft. No: Splenomegaly, Tenderness, Tenderness, Rebound Edema: No Labs: CBC, BMP 10/14/17 06:00 10/14/17 06:00 INR, PTT INR 1.27 (0.82-1.09) H 10/13/17 16:00 Fibrinogen 631.0 mg/dL (238-498) H 10/13/17 16:00 Problem List - Problems (1) Gram-positive bacteremia Code(s): R78.81 - BACTEREMIA (2) Gram-positive bacteremia Code(s): R78.81 - BACTEREMIA (3) Metastatic lung cancer (metastasis from lung to other site) Code(s): C34.90 - MALIGNANT NEOPLASM OF UNSP PART OF UNSP BRONCHUS OR LUNG (4) Cerebrovascular disease in cancer patient Code(s): I67.9 - CEREBROVASCULAR DISEASE, UNSPECIFIED; C80.1 - MALIGNANT ( PRIMARY) NEOPLASM, UNSPECIFIED Assessment/Plan Laboratory Tests 10/14/17 10/14/17 06:00 06:00 WBC 13.0 H Hgb 8.8 L Hct 28.0 L Plt Count 31 L* Total Bilirubin 0.5 D AST 43 H D ALT 65 Alkaline Phosphatase 103 Assessment MSSA bacteremia with brain lesions suggesting possible septic emboli vs mets Issue multiple including possible endocarditis Opacified hemithorax post obstructive picture with atalectasis Plan Substitute Nafcillin 2 gr q 4h Repeat the blood cultures CRP Consider DANNI if he will allow Port should be removed ! Vivian POST
[2017-10-14] MEDS ORDERED: PT OWN MED DRAWER 7, Y5N ONE ×3 (10:24→21:35)
[2017-10-14] MEDS: FOLIC ACID 1 MG TABLET (FP) PO SCH (10:27)
[2017-10-14] MEDS: PANTOPRAZOLE 40 MG TABLET (FP) PO SCH (10:27)
[2017-10-14] MEDS: LIDOCAINE 5% TOPICAL PATCH TP SCH ×2 (10:28→10:44)
[2017-10-14] MEDS: MAGNESIUM OXIDE 400 MG TABLET (FP) PO SCH ×2 (10:28→21:52)
--- NOTE | 2017-10-14 11:07 | PN ---
Progress Note, Physician History of Present Illness: Dysarthric, arousable. - Current Medication List Current Medications: Active Medications Dexamethasone (Decadron -) 4 mg PO TID [facility] Last Admin: 10/14/17 05:38 Dose: 4 mg Fentanyl (Duragesic 25mcg Patch -) 1 patch TD Q72H [facility] Stop: 10/19/17 19:32 Last Admin: 10/12/17 22:11 Dose: Not Given Folic Acid (Folic Acid -) 1 mg PO DAILY [facility] Last Admin: 10/14/17 10:27 Dose: 1 mg Gabapentin (Neurontin -) 200 mg PO TID [facility] Last Admin: 10/14/17 05:38 Dose: 200 mg Hydromorphone HCl (Dilaudid Injection -) 3 mg IVPB Q4H PRN PRN Reason: PAIN Last Admin: 10/14/17 10:24 Dose: 3 mg Sodium Chloride (Normal Saline -) 1,000 mls @ 83 mls/hr IV ASDIR [facility] Last Admin: 10/13/17 18:10 Dose: 83 mls/hr Nafcillin Sodium 2 gm/ (Dextrose) 100 mls @ 100 mls/hr IVPB Q4H-IV [facility]ARC PRN Reason: Protocol Levothyroxine Sodium (Synthroid -) 100 mcg PO DAILY@0700 [facility] Last Admin: 10/14/17 06:31 Dose: 100 mcg Lidocaine (Lidoderm Patch -) 1 patch TP DAILY [facility] Last Admin: 10/14/17 10:44 Dose: Not Given Magnesium Oxide (Mag-Ox -) 400 mg PO BID [facility] Last Admin: 10/14/17 10:28 Dose: 400 mg Mirtazapine (Remeron -) 15 mg PO HS [facility] Last Admin: 10/13/17 22:30 Dose: Not Given Miscellaneous (Lidoderm Patch Removal) 1 each MC DAILY@2200 [facility] Last Admin: 10/13/17 22:30 Dose: 1 each Miscellaneous (Duragesic Patch Waste) 1 each MC PRN PRN PRN Reason: PAIN Morphine Sulfate (Ms Contin -) 15 mg PO TID [facility] Last Admin: 10/14/17 05:38 Dose: 15 mg Pantoprazole Sodium (Protonix -) 40 mg PO DAILY [facility] Last Admin: 10/14/17 10:27 Dose: 40 mg Potassium Chloride (K-Dur -) 40 meq PO ONCE ONE Stop: 12/21/17 11:07 - Objective Vital Signs: Vital Signs Temperature 97.8 F 10/14/17 10:00 Pulse Rate 73 10/14/17 10:31 Respiratory Rate 14 10/14/17 10:00 Blood Pressure 96/77 10/14/17 10:00 O2 Sat by Pulse Oximetry (%) 96 10/14/17 10:31 Constitutional: Yes: No Distress, Calm Neck: Yes: Supple Cardiovascular: Yes: Regular Rate and Rhythm Respiratory: Yes: Regular, Diminished Gastrointestinal: Yes: Normal Bowel Sounds, Soft Edema: No Labs: CBC, BMP 10/14/17 06:00 10/14/17 06:00 INR, PTT INR 1.27 (0.82-1.09) H 10/13/17 16:00 Fibrinogen 631.0 mg/dL (238-498) H 10/13/17 16:00 Problem List - Problems (1) Gram-positive bacteremia Code(s): R78.81 - BACTEREMIA (2) Metastatic lung cancer (metastasis from lung to other site) Code(s): C34.90 - MALIGNANT NEOPLASM OF UNSP PART OF UNSP BRONCHUS OR LUNG (3) Acquired pancytopenia Code(s): D61.818 - OTHER PANCYTOPENIA (4) Anemia Code(s): D64.9 - ANEMIA, UNSPECIFIED Qualifiers: Bone marrow failure anemia type: pancytopenia, antineoplastic chemotherapy- induced (5) Atelectasis Code(s): J98.11 - ATELECTASIS (6) Cerebrovascular disease in cancer patient Code(s): I67.9 - CEREBROVASCULAR DISEASE, UNSPECIFIED; C80.1 - MALIGNANT ( PRIMARY) NEOPLASM, UNSPECIFIED (7) Hypothyroidism Code(s): E03.9 - HYPOTHYROIDISM, UNSPECIFIED Qualifiers: Hypothyroidism type: unspecified Qualified Code(s): E03.9 - Hypothyroidism , unspecified (8) Metastatic adenocarcinoma Code(s): C79.9 - SECONDARY MALIGNANT NEOPLASM OF UNSPECIFIED SITE (9) Obstructive pneumonia Code(s): J18.9 - PNEUMONIA, UNSPECIFIED ORGANISM (10) Primary lung adenocarcinoma Code(s): C34.90 - MALIGNANT NEOPLASM OF UNSP PART OF UNSP BRONCHUS OR LUNG Qualifiers: Laterality: unspecified laterality Qualified Code(s): C34.90 - Malignant neoplasm of unspecified part of unspecified bronchus or lung (11) Thrombocytopenia Code(s): D69.6 - THROMBOCYTOPENIA, UNSPECIFIED Assessment/Plan 1. Acute strokes r/o embolic 2. [place] of Lung with spinal mets 3. MSSA bacteremia 4. Hypothyroidism 5. Anemia, Thrombocytopenia 6. LEIDA 7. Right lung opacification - ATX, vs post-obstruction PNA vs large airway mucous plugging P:1. F/u brain MRI, TTE poor quality, not ideal candidate for DANNI given extent of underlying disease and co-morbid conditions 2. Monitor telemetry r/o PAF 3. Nafcillin per ID, f/u C&S for clearance, port removal recommended 4. Hydration, transfuse for Hgb<8.0, observe monitor renal recovery 5. Chest PT, O2 to keep saO2>90%, BD as needed
[2017-10-14] MEDS ORDERED: SODIUM CHLORIDE 1,000 ML IV SCH (11:11)
--- NOTE | 2017-10-14 11:11 | PN ---
Progress Note (short form) - Note Progress Note: Renal follow up for LEIDA Pt seen and examined in the ICU is awake and alert continues to have difficulty with speech transfered to ICU last night BP stable making urine on IVF Vital Signs Temperature 97.8 F 10/14/17 10:00 Pulse Rate 73 10/14/17 10:31 Respiratory Rate 14 10/14/17 10:00 Blood Pressure 96/77 10/14/17 10:00 O2 Sat by Pulse Oximetry (%) 96 10/14/17 10:31 Intake & Output 10/11/17 10/12/17 10/13/17 10/14/17 23:59 23:59 23:59 23:59 Intake Total 369 159 2310.5 722.5 Output Total 100 700 400 Balance 041 580 2417.5 322.5 Weight 72.575 kg 73.119 kg NAD, awake and alert MMM RRR CTA soft NT/ND No LE edema CBC, BMP 10/14/17 06:00 10/14/17 06:00 Laboratory Tests 10/14/17 06:00 Calcium 7.9 L Phosphorus 3.4 D Magnesium 1.6 L Albumin 1.9 L Current Medications Dexamethasone (Decadron -) 4 mg PO TID [facility] Last Admin: 10/14/17 05:38 Dose: 4 mg Fentanyl (Duragesic 25mcg Patch -) 1 patch TD Q72H [facility] Stop: 10/19/17 19:32 Last Admin: 10/12/17 22:11 Dose: Not Given Folic Acid (Folic Acid -) 1 mg PO DAILY [facility] Last Admin: 10/14/17 10:27 Dose: 1 mg Gabapentin (Neurontin -) 200 mg PO TID [facility] Last Admin: 10/14/17 05:38 Dose: 200 mg Hydromorphone HCl (Dilaudid Injection -) 3 mg IVPB Q4H PRN PRN Reason: PAIN Last Admin: 10/14/17 10:24 Dose: 3 mg Sodium Chloride (Normal Saline -) 1,000 mls @ 83 mls/hr IV ASDIR [facility] Last Admin: 10/13/17 18:10 Dose: 83 mls/hr Nafcillin Sodium 2 gm/ (Dextrose) 100 mls @ 100 mls/hr IVPB Q4H-IV [facility] PRN Reason: Protocol Levothyroxine Sodium (Synthroid -) 100 mcg PO DAILY@0700 [facility] Last Admin: 10/14/17 06:31 Dose: 100 mcg Lidocaine (Lidoderm Patch -) 1 patch TP DAILY [facility] Last Admin: 10/14/17 10:44 Dose: Not Given Magnesium Oxide (Mag-Ox -) 400 mg PO BID [facility] Last Admin: 10/14/17 10:28 Dose: 400 mg Magnesium Sulfate (Magnesium Sulfate) 2 gm IVPB ONCE ONE Stop: 10/14/17 11:07 Mirtazapine (Remeron -) 15 mg PO HS [facility] Last Admin: 10/13/17 22:30 Dose: Not Given Miscellaneous (Lidoderm Patch Removal) 1 each MC DAILY@2200 [facility] Last Admin: 10/13/17 22:30 Dose: 1 each Miscellaneous (Duragesic Patch Waste) 1 each MC PRN PRN PRN Reason: PAIN Morphine Sulfate (Ms Contin -) 15 mg PO TID [facility] Last Admin: 10/14/17 05:38 Dose: 15 mg Pantoprazole Sodium (Protonix -) 40 mg PO DAILY [facility] Last Admin: 10/14/17 10:27 Dose: 40 mg Potassium Chloride (K-Dur -) 40 meq PO ONCE ONE Stop: 10/14/17 11:07 51 year old gentleman with PMhx of metastatic adenocarcinoma of the lung who presented with complaints of back pain and found to have metastatic disease on his thoracic spine with bacteremia, opacification of his lung, new CVA and LEIDA with Cr of 1.5. #Acute Renal Failure in setting of bacteremia/Sepsis Renal function improved with IVF continue isotonic saline at lower rate today monitor urine output #Hyponatremia pt with hx of hyponatremia in the past that was not consistent with SIADH would trend for now on isotonic saline #Hypokalemia/Hypomagnesemia Give Mg sulfate 2g IV and KCL PO #Metastatic Lung Ca supportive care Pain control #new CVA neurology following #MSSA Bacteremia on Nafcillin per ID Francisco North DO
[2017-10-14] MEDS ORDERED: POTASSIUM CHLORIDE TABS 20 MEQ TABLET.ER (FP) PO ONE (11:15)
[2017-10-14] MEDS ORDERED: MAGNESIUM SULF 50% (8.12 MEQ/2 ML-1 GM VIAL) IVPB ONE ×2 (11:15→14:30)
[2017-10-14] MEDS: NAFCILLIN - 2 GM in DEXTROSE 5%-WATER - 100 ML IVPB SCH ×4 (11:51→21:57)
--- NOTE | 2017-10-14 11:57 | PN ---
Progress Note, PRIVATE DETECTIVE - Note Progress Note: Medical events/w/u in progress. Now in ICU. Remembers that he needs to speak "slowly" to improve intelligibility. However,carryover is poor due to impulsivity and impaired insight. Pt wants to go home. Tongue/lips ROM/VOM moderately impaired. Pt NPO, taking meds with applesauce followed by thin water with no overt difficulty. Swallow reassessed with delayed swallow onset, without cough/vocal wetness. High risk of silent aspiration. REC: MBS to r/o silent aspiration, to initiate PO diet with safety.
--- NOTE | 2017-10-14 12:20 | PN ---
Physical Exam: SUBJECTIVE: Patient doing well overall with pain controlled on multiple medications. refusing to take some non pain medications and refusing to have imaging of his head but able to be convinced. OBJECTIVE: Vital Signs Period Temp Pulse Resp BP Sys/Brandon Pulse Ox Last 24 Hr 97.2 F-98 F 73-129 13-23 87-117/61-82 95-96 GENERAL: The patient is awake, alert, and fully oriented, in no acute distress. HEAD: Normal with no signs of trauma. EYES: PERRL, extraocular movements intact, sclera anicteric, conjunctiva clear. right sided facial droop ENT: Ears normal, nares patent, oropharynx clear without exudates, moist mucous membranes. NECK: Trachea midline, full range of motion, supple. LUNGS: Breath sounds equal, clear to auscultation bilaterally, no wheezes, no crackles, no accessory muscle use. HEART: Regular rate and rhythm, S1, S2 without murmur, rub or gallop. ABDOMEN: Soft, nontender, nondistended, normoactive bowel sounds, no guarding, no rebound, no hepatosplenomegaly, no masses. EXTREMITIES: 2+ pulses, warm, well-perfused, no edema. NEUROLOGICAL: right sided facial droop with slurred speech but no focal motor deficits at extremities. PSYCH: Normal mood, normal affect. SKIN: Warm, dry, normal turgor, no rashes or lesions noted Laboratory Results - last 24 hr 10/13/17 10/13/17 10/13/17 05:35 16:00 16:00 WBC RBC Hgb Hct MCV MCH MCHC RDW Plt Count MPV Neutrophils % Lymphocytes % Monocytes % Eosinophils % Basophils % PT with INR 14.30 H INR 1.27 H PTT (Actin FS) 23.5 L Fibrinogen Sodium Potassium Chloride Carbon Dioxide Anion Gap BUN Creatinine Creat Clearance w eGFR Random Glucose Calcium Phosphorus Magnesium Total Bilirubin AST ALT Alkaline Phosphatase Total Protein Albumin Urine Color Urine Appearance Urine pH Ur Specific Keo Urine Protein Urine Glucose (UA) Urine Ketones Urine Blood Urine Nitrite Urine Bilirubin Urine Urobilinogen Ur Leukocyte Esterase Urine WBC (Auto) Urine RBC (Auto) Urine Mucus U Random Total Protein Ur Random Sodium Urine Creatinine Blood Type O POSITIVE Antibody Screen Negative Crossmatch See Detail 10/13/17 10/13/17 10/13/17 16:00 16:30 16:30 WBC RBC Hgb Hct MCV MCH MCHC RDW Plt Count MPV Neutrophils % Lymphocytes % Monocytes % Eosinophils % Basophils % PT with INR INR PTT (Actin FS) Fibrinogen 631.0 H Sodium Potassium Chloride Carbon Dioxide Anion Gap BUN Creatinine Creat Clearance w eGFR Random Glucose Calcium Phosphorus Magnesium Total Bilirubin AST ALT Alkaline Phosphatase Total Protein Albumin Urine Color Urine Appearance Urine pH Ur Specific Keo Urine Protein Urine Glucose (UA) Urine Ketones Urine Blood Urine Nitrite Urine Bilirubin Urine Urobilinogen Ur Leukocyte Esterase Urine WBC (Auto) Urine RBC (Auto) Urine Mucus U Random Total Protein Ur Random Sodium 103 Urine Creatinine 55.2 Blood Type Antibody Screen Crossmatch 10/13/17 10/13/17 10/13/17 16:30 16:30 21:15 WBC 10.1 H D RBC 3.75 L Hgb 8.7 L D Hct 27.3 L D MCV 72.9 L MCH 23.1 L MCHC 31.7 L RDW 20.8 H D Plt Count 36 L* D MPV 8.8 Neutrophils % Lymphocytes % Monocytes % Eosinophils % Basophils % PT with INR INR PTT (Actin FS) Fibrinogen Sodium Potassium Chloride Carbon Dioxide Anion Gap BUN Creatinine Creat Clearance w eGFR Random Glucose Calcium Phosphorus Magnesium Total Bilirubin AST ALT Alkaline Phosphatase Total Protein Albumin Urine Color Ltyellow Urine Appearance Clear Urine pH 5.0 Ur Specific Keo 1.016 Urine Protein Negative Urine Glucose (UA) Negative Urine Ketones Negative Urine Blood 1+ H Urine Nitrite Negative Urine Bilirubin Negative Urine Urobilinogen Negative Ur Leukocyte Esterase Negative Urine WBC (Auto) 1 Urine RBC (Auto) <1 Urine Mucus Rare U Random Total Protein 76 H Ur Random Sodium Urine Creatinine Blood Type Antibody Screen Crossmatch 10/14/17 10/14/17 10/14/17 06:00 06:00 06:00 WBC 13.0 H RBC 3.82 L Hgb 8.8 L Hct 28.0 L MCV 73.2 L MCH 22.9 L MCHC 31.3 L RDW 20.2 H Plt Count 31 L* MPV 8.4 Neutrophils % 96.1 H Lymphocytes % 0.6 L Monocytes % 2.8 L Eosinophils % 0.1 Basophils % 0.4 PT with INR INR PTT (Actin FS) 24.7 L Fibrinogen Sodium 135 L Potassium 3.1 L D Chloride 96 L Carbon Dioxide 29 Anion Gap 10 BUN 25 H D Creatinine 0.9 D Creat Clearance w eGFR > 60 Random Glucose 114 H D Calcium 7.9 L Phosphorus 3.4 D Magnesium 1.6 L Total Bilirubin 0.5 D AST 43 H D ALT 65 Alkaline Phosphatase 103 Total Protein 5.2 L Albumin 1.9 L Urine Color Urine Appearance Urine pH Ur Specific Keo Urine Protein Urine Glucose (UA) Urine Ketones Urine Blood Urine Nitrite Urine Bilirubin Urine Urobilinogen Ur Leukocyte Esterase Urine WBC (Auto) Urine RBC (Auto) Urine Mucus U Random Total Protein Ur Random Sodium Urine Creatinine Blood Type Antibody Screen Crossmatch Active Medications Generic Name Dose Route Start Last Admin Trade Name Freq PRN Reason Stop Dose Admin Dexamethasone 4 mg 10/11/17 22:00 10/14/17 05:38 Decadron - PO 4 mg TID MARC Administration Fentanyl 1 patch 10/12/17 19:45 10/12/17 22:11 Duragesic 25mcg Patch - TD 10/19/17 19:32 Not Given Q72H MARC Folic Acid 1 mg 10/09/17 10:00 10/14/17 10:27 Folic Acid - PO 1 mg DAILY [facility] Administration Gabapentin 200 mg 10/11/17 22:30 10/14/17 05:38 Neurontin - PO 200 mg TID [facility]ARC Administration Hydromorphone HCl 3 mg 10/14/17 00:31 10/14/17 10:24 Dilaudid Injection - IVPB 3 mg Q4H PRN Administration PAIN Nafcillin Sodium 2 gm/ 100 mls @ 100 mls/hr 10/14/17 10:00 10/14/17 11:51 Dextrose IVPB 100 mls/hr Q4H-IV MARC Administration Protocol Sodium Chloride 1,000 mls @ 75 mls/hr 10/14/17 11:11 Normal Saline - IV ASDIR [facility] Levothyroxine Sodium 100 mcg 10/09/17 07:00 10/14/17 06:31 Synthroid - PO 100 mcg DAILY@0700 [facility] Administration Lidocaine 1 patch 10/09/17 10:00 10/14/17 10:44 Lidoderm Patch - TP Not Given DAILY [facility] Magnesium Oxide 400 mg 10/08/17 22:00 10/14/17 10:28 Mag-Ox - PO 400 mg BID [facility] Administration Mirtazapine 15 mg 10/08/17 22:00 10/13/17 22:30 Remeron - PO Not Given HS MARC Miscellaneous 1 each 10/08/17 22:00 10/13/17 22:30 Lidoderm Patch Removal MC 1 each DAILY@2200 [facility] Administration Miscellaneous 1 each 10/12/17 19:32 Duragesic Patch Waste MC PRN PRN PAIN Morphine Sulfate 15 mg 10/12/17 22:00 10/14/17 05:38 Ms Contin - PO 15 mg TID [facility] Administration Pantoprazole Sodium 40 mg 10/09/17 10:00 10/14/17 10:27 Protonix - PO 40 mg DAILY [facility] Administration ASSESSMENT/PLAN: 51 year old male with PMH pf COPD, hypothyroidism, and stage 4 lung adenocarcinoma (2015 w/ mets to brain (s/p 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 Transferred to ICU with AMS 2/2 possible stroke as e/b hypodensity on CT + /- toxic metabolic encephlopathy 2/2 MSSA bacteremia and pain med usage currently with stable neuro findings and pending further workup of brain lesion but overall clinical picture bleak. Plan: Neuro/ID: AMS: likely secondary to stroke/ brain lesion +/- encephalopathy - Repeat MRI head to confirm stroke vs mets today - Cont decadron - Neuro checks - Speech and swallow eval today with MBS - Continue haldol PRN for agitation, fentanyl patch, dilaudid PRN, oxycodone - Neuro recs appreciated CV: Hypotension 2/2 sepsis +/- sedation - Appears resolved - Fluid bolus prn - Off pressers ID: [id number] Bacteremia: - Nafcillin antib coverage for MSSA - Haldol prn for delirium agitation - Dr. Hall consulted for right sided mediport removal - ID recs apprecaited Heme: Severe anemia and thrombocytepenia in setting of sepsis -Monitor CBC, coags and fibrinogen -Transfuse for Hgb<8, Plts<20 Endo: Hyperglycemia on steroids -Fingersticks q6 Hypothyroidism -Cont synthroid FEN: - S/S eval today - Replete K Proph: -SCDs -PPI Dispo: - Consult palliative - Patient verbally confirmed that he is DNR/ DNI Visit type - Emergency Visit Emergency Visit: No - New Patient This patient is new to me today: No - Critical Care Critical Care patient: No - Discharge Referral Referred to [facility] No
--- NOTE | 2017-10-14 12:41 | PN ---
Teaching Attending Note Name of Resident: Dalila Jones ATTENDING PHYSICIAN STATEMENT I saw and evaluated the patient. I reviewed the resident's note and discussed the case with the resident. I agree with the resident's findings and plan as documented. SUBJECTIVE: Pt seen and examined in the ICU. Denies shortness of breath or chest pain. Speech slurred. No headache, nausea or vomiting. Refusing MRI. OBJECTIVE: Last Vital Signs Temp Pulse Resp BP Pulse Ox 97.8 F 73 14 96/77 96 10/14/17 10:00 10/14/17 10:31 10/14/17 10:00 10/14/17 10:00 10/14/17 10:31 Intake & Output 10/11/17 10/12/17 10/13/17 10/14/17 23:59 23:59 23:59 23:59 Intake Total 134 431 3633.5 722.5 Output Total 100 700 400 Balance 260 213 8620.5 322.5 Weight 72.575 kg 73.119 kg Gen: slurred speech Heart: RRR Lung: decreased breath sounds on left Abd: soft, nontender Ext: no edema CBC, BMP 10/14/17 06:00 10/14/17 06:00 Active Medications Dexamethasone (Decadron -) 4 mg PO TID [facility] Last Admin: 10/14/17 05:38 Dose: 4 mg Fentanyl (Duragesic 25mcg Patch -) 1 patch TD Q72H [facility] Stop: 10/19/17 19:32 Last Admin: 10/12/17 22:11 Dose: Not Given Folic Acid (Folic Acid -) 1 mg PO DAILY [facility] Last Admin: 10/14/17 10:27 Dose: 1 mg Gabapentin (Neurontin -) 200 mg PO TID [facility] Last Admin: 10/14/17 05:38 Dose: 200 mg Hydromorphone HCl (Dilaudid Injection -) 3 mg IVPB Q4H PRN PRN Reason: PAIN Last Admin: 10/14/17 10:24 Dose: 3 mg Nafcillin Sodium 2 gm/ (Dextrose) 100 mls @ 100 mls/hr IVPB Q4H-IV [facility] PRN Reason: Protocol Last Admin: 10/14/17 11:51 Dose: 100 mls/hr Sodium Chloride (Normal Saline -) 1,000 mls @ 75 mls/hr IV ASDIR [facility] Levothyroxine Sodium (Synthroid -) 100 mcg PO DAILY@0700 [facility] Last Admin: 10/14/17 06:31 Dose: 100 mcg Lidocaine (Lidoderm Patch -) 1 patch TP DAILY [facility] Last Admin: 10/14/17 10:44 Dose: Not Given Magnesium Oxide (Mag-Ox -) 400 mg PO BID [facility] Last Admin: 10/14/17 10:28 Dose: 400 mg Mirtazapine (Remeron -) 15 mg PO HS [facility] Last Admin: 10/13/17 22:30 Dose: Not Given Miscellaneous (Lidoderm Patch Removal) 1 each MC DAILY@2200 [facility] Last Admin: 10/13/17 22:30 Dose: 1 each Miscellaneous (Duragesic Patch Waste) 1 each MC PRN PRN PRN Reason: PAIN Morphine Sulfate (Ms Contin -) 15 mg PO TID [facility] Last Admin: 10/14/17 05:38 Dose: 15 mg Pantoprazole Sodium (Protonix -) 40 mg PO DAILY [facility] Last Admin: 10/14/17 10:27 Dose: 40 mg ASSESSMENT AND PLAN: Acute CVA vs underlying mets Metastatic NSCLC (Adenocarcinoma) to brain/bone MSSA Bacteremia Right Atelectasis Thrombocytopenia Anemia Hypothyroidism - continue antibiotics - f/u pending cultures - MRI brain if pt allows - swallow eval - pain control - monitor CBC - transfuse as needed - IVF - replete lytes - if persistent positive cultures, may need to remove port - discussed with pt advanced directives, wishes for DNR/DNI - will get palliative care on board - continue ICU monitoring critical care time spent in reviewing chart, evaluating patient and formulating plan 35 min
[2017-10-14] MEDS ORDERED: MAGNESIUM SULF 50% (8.12 MEQ/2 ML-1 GM VIAL) ONE (14:20)
[2017-10-14] MEDS ORDERED: POTASSIUM CHLORIDE TABS 20 MEQ TABLET.ER (FP) PO STA (14:29)
--- NOTE | 2017-10-14 17:20 | PN ---
Progress Note (short form) - Note Progress Note: VAscular Surgery Pt seen and examined. ID note appreciated. Gram positive bacteremia from port. Will remove port in am. Tavo Hall DO
--- NOTE | 2017-10-14 17:24 | PN ---
Progress Note (short form) - Note Progress Note: Vascular Surgery- Dr Hall was consulted for removal of the patient's infected catheter, as requested by ID-Dr Park. D/W Dr Hall- Patient will be taken to OR for removal of the catheter tomorrow. Patient's Brother Alden, gave consent over the phone for catheter removal. Discussed patient's prognosis with brother Alden and right now the patient is full code. Alden will come in tomorrow and may fill out the advanced directives.
--- NOTE | 2017-10-14 18:49 | PN ---
Progress Note (short form) - Note Progress Note: Patient seen and examined Feels well. Denies any complaints Last Vital Signs Temp Pulse Resp BP Pulse Ox 97.6 F 98 H 20 93/72 96 10/14/17 14:00 10/14/17 14:00 10/14/17 14:00 10/14/17 14:00 10/14/17 10:31 Cor: RSR, No murmurs, No gallops Lungs: Clear to P&A Abd: Soft, Normal bowel sounds, No organomegaly Ext:No significant edema moving all extremities Abnormal Lab Results 10/13/17 10/13/17 10/13/17 16:00 16:30 21:15 WBC 10.1 H D RBC 3.75 L Hgb 8.7 L D Hct 27.3 L D MCV 72.9 L MCH 23.1 L MCHC 31.7 L RDW 20.8 H D Plt Count 36 L* D Neutrophils % Lymphocytes % Monocytes % PTT (Actin FS) Fibrinogen 631.0 H Sodium Potassium Chloride BUN Random Glucose Calcium Magnesium AST Total Protein Albumin U Random Total Protein 76 H 10/14/17 10/14/17 10/14/17 06:00 06:00 06:00 WBC 13.0 H RBC 3.82 L Hgb 8.8 L Hct 28.0 L MCV 73.2 L MCH 22.9 L MCHC 31.3 L RDW 20.2 H Plt Count 31 L* Neutrophils % 96.1 H Lymphocytes % 0.6 L Monocytes % 2.8 L PTT (Actin FS) 24.7 L Fibrinogen Sodium 135 L Potassium 3.1 L D Chloride 96 L BUN 25 H D Random Glucose 114 H D Calcium 7.9 L Magnesium 1.6 L AST 43 H D Total Protein 5.2 L Albumin 1.9 L U Random Total Protein Home Medication List Medication Instructions Recorded Confirmed Type Levothyroxine [Synthroid -] 100 mcg PO DAILY 03/10/17 10/07/17 History Magnesium Oxide 400 mg PO BID 03/10/17 10/07/17 History Omeprazole 20 mg PO BID 03/10/17 10/07/17 History Morphine Sulfate [Morphine Sulfate 15 mg PO TID 09/05/17 10/07/17 History ER] Oxycodone HCl/Acetaminophen 2 each PO DAILY 09/05/17 10/07/17 History [Oxycodon-Acetaminophen 7.5-300] Active Medications Generic Name Dose Route Start Last Admin Trade Name Freq PRN Reason Stop Dose Admin Dexamethasone 4 mg 10/11/17 22:00 10/14/17 14:13 Decadron - PO 4 mg TID MARC Administration Fentanyl 1 patch 10/12/17 19:45 10/12/17 22:11 Duragesic 25mcg Patch - TD 10/19/17 19:32 Not Given Q72H MARC Folic Acid 1 mg 10/09/17 10:00 10/14/17 10:27 Folic Acid - PO 1 mg DAILY MARC Administration Gabapentin 200 mg 10/11/17 22:30 10/14/17 14:14 Neurontin - PO 200 mg TID MARC Administration Hydromorphone HCl 3 mg 10/14/17 00:31 10/14/17 14:48 Dilaudid Injection - IVPB 3 mg Q4H PRN Administration PAIN Nafcillin Sodium 2 gm/ 100 mls @ 100 mls/hr 10/14/17 10:00 10/14/17 17:56 Dextrose IVPB 100 mls/hr Q4H-IV MARC Administration Protocol Sodium Chloride 1,000 mls @ 75 mls/hr 10/14/17 11:11 10/14/17 14:15 Normal Saline - IV 75 mls/hr ASDIR MARC Administration Levothyroxine Sodium 100 mcg 10/09/17 07:00 10/14/17 06:31 Synthroid - PO 100 mcg DAILY@0700 MARC Administration Lidocaine 1 patch 10/09/17 10:00 10/14/17 10:44 Lidoderm Patch - TP Not Given DAILY MARC Magnesium Oxide 400 mg 10/08/17 22:00 10/14/17 10:28 Mag-Ox - PO 400 mg BID MARC Administration Mirtazapine 15 mg 10/08/17 22:00 10/13/17 22:30 Remeron - PO Not Given HS MARC Miscellaneous 1 each 10/08/17 22:00 10/13/17 22:30 Lidoderm Patch Removal MC 1 each DAILY@2200 MARC Administration Miscellaneous 1 each 10/12/17 19:32 Duragesic Patch Waste MC PRN PRN PAIN Morphine Sulfate 15 mg 10/12/17 22:00 10/14/17 14:13 Ms Contin - PO 15 mg TID MARC Administration Pantoprazole Sodium 40 mg 10/09/17 10:00 10/14/17 10:27 Protonix - PO 40 mg DAILY MARC Administration A/P 51 yo M with h/o COPD, hypothyroidism, and 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 Patient has been on keytruda Haad been on RT to spine but has not been compliant for last week CT Spine ( 09/09/17) revealed lytic metastasis within the left half of the T10 vertebral body. Pathologic compression fracture of the left half of T10 with mild loss of height. Lytic metastasis within the right S1 and S2 vertebra with enhancing neoplasm surrounding the exiting right S1 nerve root. Patient was scheduled to have outpatient MRI, but refused d/t claustrophobia. Repeat CT scans show t0 compressin fx, no retropulsion/paraspinal mass/epidural disease. progression snce 09/09. ? MRI continue decadron--4mg tid neurosurgery/rad-onc f/u severe thrombocytopenia ---hence treatment of cordcompression challenging. ? marrow suppression from RT due to infection? Port infection for port removal ? endocarditis on nafcillin patient tells me that I dont hve to talk to anyone else in his family. will get palliative care team involved continue supportive
--- NOTE | 2017-10-14 19:15 | PN ---
Progress Note (short form) - Note Progress Note: Spoke with patient regarding code status. Pt stated he would not like chest compressions done and would like to be DNR. Pt understands the implications of being DNR and stated he would not like resuscitation measures to be taken. Pt does state that he is agreeable to being intubated if necessary.
[2017-10-14] MEDS: MIRTAZAPINE 15 MG TABLET (FP) PO SCH (21:54)
[2017-10-14] MEDS: LIDOCAINE PATCH REMOVAL MC SCH (21:57)
--- NOTE | 2017-10-14 23:03 | PN ---
Progress Note, Physician - Current Medication List Current Medications: Active Medications Dexamethasone (Decadron -) 4 mg PO TID [facility] Last Admin: 10/14/17 21:54 Dose: 4 mg Fentanyl (Duragesic 25mcg Patch -) 1 patch TD Q72H [facility] Stop: 10/19/17 19:32 Last Admin: 10/12/17 22:11 Dose: Not Given Folic Acid (Folic Acid -) 1 mg PO DAILY [facility] Last Admin: 10/14/17 10:27 Dose: 1 mg Gabapentin (Neurontin -) 200 mg PO TID [facility] Last Admin: 10/14/17 21:53 Dose: 200 mg Hydromorphone HCl (Dilaudid Injection -) 3 mg IVPB Q4H PRN PRN Reason: PAIN Last Admin: 10/14/17 20:37 Dose: 3 mg Nafcillin Sodium 2 gm/ (Dextrose) 100 mls @ 100 mls/hr IVPB Q4H-IV MARC PRN Reason: Protocol Last Admin: 10/14/17 21:57 Dose: 100 mls/hr Sodium Chloride (Normal Saline -) 1,000 mls @ 75 mls/hr IV ASDIR [facility] Last Admin: 10/14/17 14:15 Dose: 75 mls/hr Levothyroxine Sodium (Synthroid -) 100 mcg PO DAILY@0700 [facility] Last Admin: 10/14/17 06:31 Dose: 100 mcg Lidocaine (Lidoderm Patch -) 1 patch TP DAILY [facility] Last Admin: 10/14/17 10:44 Dose: Not Given Magnesium Oxide (Mag-Ox -) 400 mg PO BID [facility] Last Admin: 10/14/17 21:52 Dose: 400 mg Mirtazapine (Remeron -) 15 mg PO HS [facility] Last Admin: 10/14/17 21:54 Dose: 15 mg Miscellaneous (Lidoderm Patch Removal) 1 each MC DAILY@2200 [facility] Last Admin: 10/14/17 21:57 Dose: 1 each Miscellaneous (Duragesic Patch Waste) 1 each MC PRN PRN PRN Reason: PAIN Morphine Sulfate (Ms Contin -) 15 mg PO TID [facility] Last Admin: 10/14/17 21:56 Dose: 15 mg Pantoprazole Sodium (Protonix -) 40 mg PO DAILY [facility] Last Admin: 10/14/17 10:27 Dose: 40 mg - Objective Vital Signs: Vital Signs Temperature 97.6 F 10/14/17 14:00 Pulse Rate 98 H 10/14/17 14:00 Respiratory Rate 20 10/14/17 14:00 Blood Pressure 93/72 10/14/17 14:00 O2 Sat by Pulse Oximetry (%) 96 10/14/17 10:31 Labs: CBC, BMP 10/14/17 06:00 10/14/17 06:00 INR, PTT INR 1.27 (0.82-1.09) H 10/13/17 16:00 Fibrinogen 631.0 mg/dL (238-498) H 10/13/17 16:00 Problem List - Problems (1) Intractable back pain Code(s): M54.9 - DORSALGIA, UNSPECIFIED (2) Thrombocytopenia Code(s): D69.6 - THROMBOCYTOPENIA, UNSPECIFIED (3) Metastatic adenocarcinoma Code(s): C79.9 - SECONDARY MALIGNANT NEOPLASM OF UNSPECIFIED SITE (4) Anemia Code(s): D64.9 - ANEMIA, UNSPECIFIED Qualifiers: Bone marrow failure anemia type: pancytopenia, antineoplastic chemotherapy- induced (5) COPD (chronic obstructive pulmonary disease) Code(s): J44.9 - CHRONIC OBSTRUCTIVE PULMONARY DISEASE, UNSPECIFIED Qualifiers: COPD type: unspecified COPD Qualified Code(s): J44.9 - Chronic obstructive pulmonary disease, unspecified (6) Hypothyroidism Code(s): E03.9 - HYPOTHYROIDISM, UNSPECIFIED Qualifiers: Hypothyroidism type: unspecified Qualified Code(s): E03.9 - Hypothyroidism , unspecified
[2017-10-15] MEDS: NAFCILLIN - 2 GM in DEXTROSE 5%-WATER - 100 ML IVPB SCH ×6 (01:17→21:33)
[2017-10-15] MEDS: HYDROmorphone HCL CARPU-JECT 2 MG/1 ML DISP.SYRIN IVPB PRN ×3 (02:30→11:59)
[2017-10-15] MEDS: DEXAMETHASONE 4 MG TABLET (FP) PO SCH ×3 (05:27→21:30)
[2017-10-15] MEDS: morphine SO4 SUSTAINED ACTING 15 MG TABLET.SA PO SCH ×3 (05:27→21:30)
[2017-10-15] MEDS: GABAPENTIN 100 MG CAPSULE (FP) PO SCH ×3 (05:28→21:29)
[2017-10-15] MEDS: LEVOTHYROXINE NA 100 MCG TABLET (FP) PO SCH (06:08)
[2017-10-15 06:45] LABS: BASO % 0.2 % (0-2.0); EOS % 0.1 % (0-4.5); HEMATOCRIT 29.9 % (35.4-49); HEMOGLOBIN 9.4 GM/dL (11.7-16.9); LYMPH % 1.3 % (8-40); MCH 22.9 pg (25.7-33.7); MCHC 31.4 g/dl (32.0-35.9); MEAN PLT VOLUME 8.7 fl (7.5-11.1); MONO % 5.4 % (3.8-10.2); RDW 20.2 % (11.9-15.9); WHITE BLOOD COUNT 15.4 K/mm3 (4.0-10.0)
[2017-10-15 07:07] LABS: ALBUMIN 1.9 g/dl (3.4-5.0); ANION GAP 9 (8-16); BLOOD UREA NITROGEN 24 mg/dL (7-18); CALCIUM 8.5 mg/dL (8.5-10.1); CHLORIDE 97 mmol/L (98-107); CO2 30 mmol/L (21-32); GLUCOSE,RANDOM 131 mg/dL (74-106); MAGNESIUM 2.1 mg/dL (1.8-2.4); POTASSIUM 3.3 mmol/L (3.5-5.1); SODIUM 136 mmol/L (136-145)
[2017-10-15 07:12] LABS: ALK PHOS 115 U/L (45-117); BILIRUBIN,TOTAL 0.9 mg/dL (0.2-1.0); CREATININE 0.9 mg/dL (0.7-1.3); PHOSPHOROUS 3.5 mg/dL (2.5-4.9); SGOT/AST 23 U/L (15-37); SGPT/ALT 53 U/L (12-78); TOT PROT 5.4 g/dl (6.4-8.2)
[2017-10-15 07:36] LABS: PLATELET COUNT 23 K/MM3 (134-434)
--- NOTE | 2017-10-15 07:58 | PN ---
Progress Note, Physician Chief Complaint: ID Nafcillin for MSSA bacteremia - Current Medication List Current Medications: Active Medications Dexamethasone (Decadron -) 4 mg PO TID [facility] Last Admin: 10/15/17 05:27 Dose: 4 mg Fentanyl (Duragesic 25mcg Patch -) 1 patch TD Q72H [facility] Stop: 10/19/17 19:32 Last Admin: 10/12/17 22:11 Dose: Not Given Folic Acid (Folic Acid -) 1 mg PO DAILY [facility] Last Admin: 10/14/17 10:27 Dose: 1 mg Gabapentin (Neurontin -) 200 mg PO TID [facility] Last Admin: 10/15/17 05:28 Dose: 200 mg Hydromorphone HCl (Dilaudid Injection -) 3 mg IVPB Q4H PRN PRN Reason: PAIN Last Admin: 10/15/17 07:00 Dose: 3 mg Nafcillin Sodium 2 gm/ (Dextrose) 100 mls @ 100 mls/hr IVPB Q4H-IV MARC PRN Reason: Protocol Last Admin: 10/15/17 05:30 Dose: 100 mls/hr Sodium Chloride (Normal Saline -) 1,000 mls @ 75 mls/hr IV ASDIR [facility] Last Admin: 10/14/17 14:15 Dose: 75 mls/hr Levothyroxine Sodium (Synthroid -) 100 mcg PO DAILY@0700 [facility] Last Admin: 10/15/17 06:08 Dose: 100 mcg Lidocaine (Lidoderm Patch -) 1 patch TP DAILY [facility] Last Admin: 10/14/17 10:44 Dose: Not Given Magnesium Oxide (Mag-Ox -) 400 mg PO BID [facility] Last Admin: 10/14/17 21:52 Dose: 400 mg Mirtazapine (Remeron -) 15 mg PO HS [facility] Last Admin: 10/14/17 21:54 Dose: 15 mg Miscellaneous (Lidoderm Patch Removal) 1 each MC DAILY@2200 [facility] Last Admin: 10/14/17 21:57 Dose: 1 each Miscellaneous (Duragesic Patch Waste) 1 each MC PRN PRN PRN Reason: PAIN Morphine Sulfate (Ms Contin -) 15 mg PO TID [facility] Last Admin: 10/15/17 05:27 Dose: 15 mg Pantoprazole Sodium (Protonix -) 40 mg PO DAILY [facility] Last Admin: 10/14/17 10:27 Dose: 40 mg - Objective Vital Signs: Vital Signs Temperature 97.7 F 10/15/17 02:00 Pulse Rate 72 10/15/17 04:05 Respiratory Rate 10 L 10/15/17 04:05 Blood Pressure 126/77 10/15/17 04:05 O2 Sat by Pulse Oximetry (%) 98 10/14/17 22:00 Cardiovascular: Yes: S1, S2 Respiratory: Yes: WNL, Regular, CTA Bilaterally Gastrointestinal: Yes: WNL, Normal Bowel Sounds, Soft. No: Tenderness, Rebound Labs: CBC, BMP 10/15/17 06:20 INR, PTT INR 1.27 (0.82-1.09) H 10/13/17 16:00 Fibrinogen 631.0 mg/dL (238-498) H 10/13/17 16:00 Problem List - Problems (1) Gram-positive bacteremia Code(s): R78.81 - BACTEREMIA (2) Gram-positive bacteremia Code(s): R78.81 - BACTEREMIA (3) Metastatic lung cancer (metastasis from lung to other site) Code(s): C34.90 - MALIGNANT NEOPLASM OF UNSP PART OF UNSP BRONCHUS OR LUNG (4) Cerebrovascular disease in cancer patient Code(s): I67.9 - CEREBROVASCULAR DISEASE, UNSPECIFIED; C80.1 - MALIGNANT ( PRIMARY) NEOPLASM, UNSPECIFIED Assessment/Plan Microbiology 10/14/17 10:10 Blood - Peripheral Venous Blood Culture - Preliminary Pending Organism 10/14/17 10:10 Blood - Peripheral Venous Blood Culture - Preliminary Pending Organism 10/12/17 21:45 Blood - Peripheral Venous Blood Culture - Preliminary Staphylococcus Latex Coag Pos 10/12/17 21:25 Blood - Peripheral Venous Blood Culture - Preliminary Staphylococcus Latex Coag Pos 10/11/17 Unknown Blood - Central Line Blood Culture - Preliminary Presumptive Mssa (Pbp2a Neg) 10/11/17 Unknown Blood - Central Line Blood Culture - Preliminary Presumptive Mssa (Pbp2a Neg) Laboratory Tests 10/14/17 10/15/17 06:00 06:20 WBC 15.4 H Hgb 9.4 L Hct 29.9 L Plt Count 23 L* D BUN 25 H D Creatinine 0.9 D AST 43 H D ALT 65 Alkaline Phosphatase 103 Assessment Suspect MSSA bacteremia wiath possible endocarditis septic emboli brain (nonhemmoragic infarcts) Plan Transfuse platelets Remove the port Blood cultures tomorrow Continue horacio Park MD
--- NOTE | 2017-10-15 08:39 | PN ---
Progress Note (short form) - Note Progress Note: NEUROSURGERY In ICU Wants to go home Some back pain Unable to undergo MRI PE: T max 98.4, VSS HEENT- NC/AT; Neck- supple; Cor- RRR; Lungs- CTA B; Abd- benign, + BS; Ext- no sign of DVT Garbled/dysarthric speech; following commands CN- intact except mild L lower facial asymmetry and tongue deviation to R; Motor - 4+/5 in UE/LE extremities, appears symmetric ; Sensation- intact LT; DTR- 1+ , no LTS Blood culture- 4/4 MSSA likely CXR- R lung opacity; R sided catheter in place CT T spine: L T10 metastatic involvement with T9-10 foramenal involvement as previously; mild loss of T10 vertebral height and mild anterior epidural extension Head CT- R lateral temporal and R lateral parietal cortical-subcortical hypodenisty with minimal mass effect (not present on 09-09-2017 scan); chronic cerebellar changes Multifocal mets from lung adenoCA Acute onset R MCA ischemia (? causes: cardio-embolic vs septic emboli) vs subtle small mets MSSA bacteremia Cardiology and neurology input Brain MRI with/without harleen including diffusion imaging recommended; valium ordered avionics technician; pt intially agreed but declined again D/w Dr Park, for port removal DNR signed by patient reportedly No neurosurgical intervention recommended or appropriate Medical/neurology management for likely acute R MCA ischemia Resume and complete T spine RT when medically feasible
[2017-10-15] MEDS ORDERED: PT OWN MED DRAWER 7, Y5N ONE ×4 (08:47→21:33)
--- NOTE | 2017-10-15 09:50 | PN ---
Physical Exam: SUBJECTIVE: Patient very somnolent this morning afte receiving narcotic pain relievers. OBJECTIVE: Vital Signs Period Temp Pulse Resp BP Sys/Brandon Pulse Ox Last 24 Hr 97.6 F-97.8 F 70-101 10-20 92-126/59-82 96-98 GENERAL: The patient is awake, alert, and fully oriented, in no acute distress. HEAD: Normal with no signs of trauma. EYES: PERRL, extraocular movements intact, sclera anicteric, conjunctiva clear. right sided facial droop ENT: Ears normal, nares patent, oropharynx clear without exudates, moist mucous membranes. NECK: Trachea midline, full range of motion, supple. LUNGS: Breath sounds equal, clear to auscultation bilaterally, no wheezes, no crackles, no accessory muscle use. HEART: Regular rate and rhythm, S1, S2 without murmur, rub or gallop. ABDOMEN: Soft, nontender, nondistended, normoactive bowel sounds, no guarding, no rebound, no hepatosplenomegaly, no masses. EXTREMITIES: 2+ pulses, warm, well-perfused, no edema. NEUROLOGICAL: right sided facial droop with slurred speech but no focal motor deficits at extremities. PSYCH: Normal mood, normal affect. SKIN: Warm, dry, normal turgor, no rashes or lesions noted Laboratory Results - last 24 hr 10/15/17 10/15/17 06:20 06:20 WBC 15.4 H RBC 4.10 Hgb 9.4 L Hct 29.9 L MCV 73.0 L MCH 22.9 L MCHC 31.4 L RDW 20.2 H Plt Count 23 L* D MPV 8.7 Absolute Neuts (auto) 14.3 L Absolute Lymphs (auto) 0.2 L Absolute Monos (auto) 0.8 L Absolute Eos (auto) 0.0 Absolute Basos (auto) 0.0 L Neutrophils % 93.0 H Lymphocytes % 1.3 L D Monocytes % 5.4 D Eosinophils % 0.1 Basophils % 0.2 Sodium 136 Potassium 3.3 L Chloride 97 L Carbon Dioxide 30 Anion Gap 9 BUN 24 H Creatinine 0.9 Creat Clearance w eGFR > 60 Random Glucose 131 H Calcium 8.5 Phosphorus 3.5 Magnesium 2.1 D Total Bilirubin 0.9 D AST 23 D ALT 53 Alkaline Phosphatase 115 Total Protein 5.4 L Albumin 1.9 L Active Medications Generic Name Dose Route Start Last Admin Trade Name Freq PRN Reason Stop Dose Admin Dexamethasone 4 mg 10/11/17 22:00 10/15/17 05:27 Decadron - PO 4 mg TID MARC Administration Fentanyl 1 patch 10/12/17 19:45 10/12/17 22:11 Duragesic 25mcg Patch - TD 10/19/17 19:32 Not Given Q72H MARC Folic Acid 1 mg 10/09/17 10:00 10/14/17 10:27 Folic Acid - PO 1 mg DAILY MARC Administration Gabapentin 200 mg 10/11/17 22:30 10/15/17 05:28 Neurontin - PO 200 mg TID MARC Administration Hydromorphone HCl 3 mg 10/14/17 00:31 10/15/17 07:00 Dilaudid Injection - IVPB 3 mg Q4H PRN Administration PAIN Nafcillin Sodium 2 gm/ 100 mls @ 100 mls/hr 10/14/17 10:00 10/15/17 05:30 Dextrose IVPB 100 mls/hr Q4H-IV MARC Administration Protocol Sodium Chloride 1,000 mls @ 75 mls/hr 10/14/17 11:11 10/14/17 14:15 Normal Saline - IV 75 mls/hr ASDIR MARC Administration Levothyroxine Sodium 100 mcg 10/09/17 07:00 10/15/17 06:08 Synthroid - PO 100 mcg DAILY@0700 MARC Administration Lidocaine 1 patch 10/09/17 10:00 10/14/17 10:44 Lidoderm Patch - TP Not Given DAILY MARC Magnesium Oxide 400 mg 10/08/17 22:00 10/14/17 21:52 Mag-Ox - PO 400 mg BID MARC Administration Mirtazapine 15 mg 10/08/17 22:00 10/14/17 21:54 Remeron - PO 15 mg HS MARC Administration Miscellaneous 1 each 10/08/17 22:00 10/14/17 21:57 Lidoderm Patch Removal MC 1 each DAILY@2200 MARC Administration Miscellaneous 1 each 10/12/17 19:32 Duragesic Patch Waste MC PRN PRN PAIN Morphine Sulfate 15 mg 10/12/17 22:00 10/15/17 05:27 Ms Contin - PO 15 mg TID MARC Administration Pantoprazole Sodium 40 mg 10/09/17 10:00 10/14/17 10:27 Protonix - PO 40 mg DAILY MARC Administration ASSESSMENT/PLAN: 51 year old male with PMH pf COPD, hypothyroidism, and stage 4 lung adenocarcinoma (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 Transferred to ICU with AMS 2/2 possible stroke as e/b hypodensity on CT + /- toxic metabolic encephlopathy 2/2 MSSA bacteremia and pain med usage currently with stable neuro findings and moving towards a palliative therapy route, appropriate to transfer to oncology floor. Plan: Neuro/ID: AMS: likely secondary to stroke/ brain lesion +/- encephalopathy - Patient refusing MRI - Cont decadron - Neuro checks - Speech and swallow recommended dysphagia ground diet with nectar thick liquids - Continue haldol PRN for agitation, fentanyl patch, dilaudid PRN, oxycodone - Neuro recs appreciated CV: Hypotension 2/2 sepsis +/- sedation. Off pressers for three days. - Appears resolved - Fluid bolus prn ID: MSSA Bacteremia: - Nafcillin antib coverage for MSSA - Haldol prn for delirium agitation - Dr. Hall removing medport today. - ID recs apprecaited Heme: Severe anemia and thrombocytepenia in setting of sepsis - Monitor CBC, coags and fibrinogen - Transfused two units of platelets pre-procedure because of thrombocytopenia to 23 - Transfuse for Hgb<8, Plts<20 Endo: Hyperglycemia on steroids -Fingersticks q6 Hypothyroidism -Cont synthroid FEN: - Dysphagia ground diet with nectar thick liquids - Replete K Proph: - Thrombocytopenic - SCDs - PPI Dispo: - Palliative to see today - Patient is DNR but would want to be intubated. Visit type - Emergency Visit Emergency Visit: No - New Patient This patient is new to me today: No - Critical Care Critical Care patient: Yes Total Critical Care Time (in minutes): 35 Critical Care Statement: The care of this patient involved high complexity decision making to prevent further life threatening deterioration of the patient 's condition and/or to evaluate & treat vital organ system(s) failure or risk of failure. - Discharge Referral Referred to [facility] Med P.C.: No
[2017-10-15] MEDS ORDERED: POTASSIUM CHLORIDE TABS 20 MEQ TABLET.ER (FP) PO ONE (09:57)
[2017-10-15] MEDS ORDERED: POTASSIUM CHLORIDE TABS 20 MEQ TABLET.ER (FP) PO SCH (10:00)
--- NOTE | 2017-10-15 11:04 | PN ---
Progress Note, Physician History of Present Illness: Dysarthric, plan for port removal. - Current Medication List Current Medications: Active Medications Dexamethasone (Decadron -) 4 mg PO TID [facility] Last Admin: 10/15/17 05:27 Dose: 4 mg Fentanyl (Duragesic 25mcg Patch -) 1 patch TD Q72H [facility] Stop: 10/19/17 19:32 Last Admin: 10/12/17 22:11 Dose: Not Given Folic Acid (Folic Acid -) 1 mg PO DAILY [facility] Last Admin: 10/14/17 10:27 Dose: 1 mg Gabapentin (Neurontin -) 200 mg PO TID [facility] Last Admin: 10/15/17 05:28 Dose: 200 mg Hydromorphone HCl (Dilaudid Injection -) 3 mg IVPB Q4H PRN PRN Reason: PAIN Last Admin: 10/15/17 07:00 Dose: 3 mg Nafcillin Sodium 2 gm/ (Dextrose) 100 mls @ 100 mls/hr IVPB Q4H-IV MARC PRN Reason: Protocol Last Admin: 10/15/17 10:38 Dose: 100 mls/hr Sodium Chloride (Normal Saline -) 1,000 mls @ 75 mls/hr IV ASDIR [facility] Last Admin: 10/14/17 14:15 Dose: 75 mls/hr Levothyroxine Sodium (Synthroid -) 100 mcg PO DAILY@0700 [facility] Last Admin: 10/15/17 06:08 Dose: 100 mcg Lidocaine (Lidoderm Patch -) 1 patch TP DAILY [facility] Last Admin: 10/14/17 10:44 Dose: Not Given Magnesium Oxide (Mag-Ox -) 400 mg PO BID [facility] Last Admin: 10/14/17 21:52 Dose: 400 mg Mirtazapine (Remeron -) 15 mg PO HS [facility] Last Admin: 10/14/17 21:54 Dose: 15 mg Miscellaneous (Lidoderm Patch Removal) 1 each MC DAILY@2200 [facility] Last Admin: 10/14/17 21:57 Dose: 1 each Miscellaneous (Duragesic Patch Waste) 1 each MC PRN PRN PRN Reason: PAIN Morphine Sulfate (Ms Contin -) 15 mg PO TID [facility] Last Admin: 10/15/17 05:27 Dose: 15 mg Pantoprazole Sodium (Protonix -) 40 mg PO DAILY [facility] Last Admin: 10/14/17 10:27 Dose: 40 mg - Objective Vital Signs: Vital Signs Temperature 97.7 F 10/15/17 02:00 Pulse Rate 91 H 10/15/17 08:00 Respiratory Rate 11 L 10/15/17 08:00 Blood Pressure 117/79 10/15/17 08:00 O2 Sat by Pulse Oximetry (%) 98 10/14/17 22:00 Constitutional: Yes: No Distress, Calm, Thin Neck: Yes: Supple Cardiovascular: Yes: Regular Rate and Rhythm Respiratory: Yes: Regular, Diminished Gastrointestinal: Yes: Normal Bowel Sounds, Soft Edema: No Labs: CBC, BMP 10/15/17 06:20 10/15/17 06:20 INR, PTT INR 1.27 (0.82-1.09) H 10/13/17 16:00 Fibrinogen 631.0 mg/dL (238-498) H 10/13/17 16:00 - ....Imaging EKG: Report Reviewed (Tele: no PAF) Problem List - Problems (1) Gram-positive bacteremia Code(s): R78.81 - BACTEREMIA (2) Metastatic lung cancer (metastasis from lung to other site) Code(s): C34.90 - MALIGNANT NEOPLASM OF UNSP PART OF UNSP BRONCHUS OR LUNG (3) Acquired pancytopenia Code(s): D61.818 - OTHER PANCYTOPENIA (4) Anemia Code(s): D64.9 - ANEMIA, UNSPECIFIED Qualifiers: Bone marrow failure anemia type: pancytopenia, antineoplastic chemotherapy- induced (5) Atelectasis Code(s): J98.11 - ATELECTASIS (6) Cerebrovascular disease in cancer patient Code(s): I67.9 - CEREBROVASCULAR DISEASE, UNSPECIFIED; C80.1 - MALIGNANT ( PRIMARY) NEOPLASM, UNSPECIFIED (7) Hypothyroidism Code(s): E03.9 - HYPOTHYROIDISM, UNSPECIFIED Qualifiers: Hypothyroidism type: unspecified Qualified Code(s): E03.9 - Hypothyroidism , unspecified (8) Metastatic adenocarcinoma Code(s): C79.9 - SECONDARY MALIGNANT NEOPLASM OF UNSPECIFIED SITE (9) Obstructive pneumonia Code(s): J18.9 - PNEUMONIA, UNSPECIFIED ORGANISM (10) Primary lung adenocarcinoma Code(s): C34.90 - MALIGNANT NEOPLASM OF UNSP PART OF UNSP BRONCHUS OR LUNG Qualifiers: Laterality: unspecified laterality Qualified Code(s): C34.90 - Malignant neoplasm of unspecified part of unspecified bronchus or lung (11) Thrombocytopenia Code(s): D69.6 - THROMBOCYTOPENIA, UNSPECIFIED (12) Line sepsis Code(s): T82.7XXA - INFECT/INFLM REACT D/T OTH CARDI/VASC DEV/IMPLNT/GRFT, INIT Qualifiers: Encounter type: subsequent encounter Qualified Code(s): T82.7XXD - Infection and inflammatory reaction due to other cardiac and vascular devices, implants and grafts, subsequent encounter Assessment/Plan 1. Acute strokes r/o embolic 2. [place]en[place] of Lung with spinal mets 3. Persistent MSSA bacteremia, line sepsis 4. Hypothyroidism 5. Anemia, Thrombocytopenia 6. Right lung opacification - ATX, vs post-obstruction PNA vs large airway mucous plugging P:1. F/u brain MRI, TTE poor quality, not ideal candidate for DANNI given extent of underlying disease and co-morbid conditions 2. Monitor telemetry r/o PAF 3. Nafcillin per ID, f/u C&S for clearance, port removal with Plt infusion recommended 4. Hydration, transfuse for Hgb<8.0, observe monitor renal recovery 5. Chest PT, O2 to keep saO2>90%, BD as needed 6. Resume and complete T spine RT when medically feasible 7. MRI brain if pt allows 8. Advanced directives addressed
--- NOTE | 2017-10-15 11:27 | PN ---
Progress Note (short form) - Note Progress Note: Patient seen and examined Garbled speech Confused Pain improved Denies significant shortness of breath Last Vital Signs Temp Pulse Resp BP Pulse Ox 97.5 F L 122 H 19 116/87 98 10/15/17 10:00 10/15/17 10:00 10/15/17 10:00 10/15/17 10:00 10/14/17 22:00 HEENT: SILVINO, EOM Intact Oropharynx: bloody musous membranes Neck: Supple Nodes: Without adenopathy Cor: RSR, No murmurs, No gallops Lungs- diminished breath sounds and rhonchi Abd: Soft, Normal bowel sounds, No organomegaly Ext:No significant edema Skin: No rashes, Integument intact, numerous ecchymoses CBC, BMP 10/15/17 06:20 10/15/17 06:20 Current Medications Generic Name Dose Route Start Last Admin Trade Name Freq PRN Reason Stop Dose Admin Dexamethasone 4 mg 10/11/17 22:00 10/15/17 05:27 Decadron - PO 4 mg TID MARC Administration Fentanyl 1 patch 10/12/17 19:45 10/12/17 22:11 Duragesic 25mcg Patch - TD 10/19/17 19:32 Not Given Q72H MARC Folic Acid 1 mg 10/09/17 10:00 10/14/17 10:27 Folic Acid - PO 1 mg DAILY MARC Administration Gabapentin 200 mg 10/11/17 22:30 10/15/17 05:28 Neurontin - PO 200 mg TID MARC Administration Hydromorphone HCl 3 mg 10/14/17 00:31 10/15/17 07:00 Dilaudid Injection - IVPB 3 mg Q4H PRN Administration PAIN Nafcillin Sodium 2 gm/ 100 mls @ 100 mls/hr 10/14/17 10:00 10/15/17 10:38 Dextrose IVPB 100 mls/hr Q4H-IV MARC Administration Protocol Sodium Chloride 1,000 mls @ 75 mls/hr 10/14/17 11:11 10/14/17 14:15 Normal Saline - IV 75 mls/hr ASDIR MARC Administration Levothyroxine Sodium 100 mcg 10/09/17 07:00 10/15/17 06:08 Synthroid - PO 100 mcg DAILY@0700 MARC Administration Lidocaine 1 patch 10/09/17 10:00 10/14/17 10:44 Lidoderm Patch - TP Not Given DAILY MARC Magnesium Oxide 400 mg 10/08/17 22:00 10/14/17 21:52 Mag-Ox - PO 400 mg BID MARC Administration Mirtazapine 15 mg 10/08/17 22:00 10/14/17 21:54 Remeron - PO 15 mg HS MARC Administration Miscellaneous 1 each 10/08/17 22:00 10/14/17 21:57 Lidoderm Patch Removal MC 1 each DAILY@2200 MARC Administration Miscellaneous 1 each 10/12/17 19:32 Duragesic Patch Waste MC PRN PRN PAIN Morphine Sulfate 15 mg 10/12/17 22:00 10/15/17 05:27 Ms Contin - PO 15 mg TID MARC Administration Pantoprazole Sodium 40 mg 10/09/17 10:00 10/14/17 10:27 Protonix - PO 40 mg DAILY MARC Administration Microbiology 10/11/17 Unknown Blood - Central Line Blood Culture - Final Staphylococcus Aureus 10/14/17 10:10 Blood - Peripheral Venous Blood Culture - Preliminary Pending Organism 10/14/17 10:10 Blood - Peripheral Venous Blood Culture - Preliminary Pending Organism 10/12/17 21:45 Blood - Peripheral Venous Blood Culture - Preliminary Staphylococcus Latex Coag Pos 10/12/17 21:25 Blood - Peripheral Venous Blood Culture - Preliminary Staphylococcus Latex Coag Pos Impression: Multiple issues Metastatic lung cancer (adenoca) to [employer], lung, pleura, spine Spinal Cord compression Pain management Staph aureus bacteremia Thrombocytopenia _-- ??secondary to sepsis [employer]- hypodensities--?? embolic ?? other Plan: Remove port Antibiotics per ID If platelets improve with antibiotics and port removal- RT to spine Platelet infusion
--- NOTE | 2017-10-15 11:51 | PN ---
Teaching Attending Note Name of Resident: Dalila Jones ATTENDING PHYSICIAN STATEMENT I saw and evaluated the patient. I reviewed the resident's note and discussed the case with the resident. I agree with the resident's findings and plan as documented. SUBJECTIVE: Patient seen and examined in the ICU. Awake and alert. Denies shortness of breath or chest pain. Speech remains slurred. Receiving platelets for port removal today. OBJECTIVE: Intake & Output 10/12/17 10/13/17 10/14/17 10/15/17 23:59 23:59 23:59 23:59 Intake Total 500 2215.5 1979.5 710 Output Total 700 1500 300 Balance 500 1515.5 479.5 410 Weight 160 lb 161 lb 3.2 oz 158 lb Last Vital Signs Temp Pulse Resp BP Pulse Ox 97.5 F L 122 H 19 116/87 98 10/15/17 10:00 10/15/17 10:00 10/15/17 10:00 10/15/17 10:00 10/14/17 22:00 Active Medications Dexamethasone (Decadron -) 4 mg PO TID [facility] Last Admin: 10/15/17 05:27 Dose: 4 mg Fentanyl (Duragesic 25mcg Patch -) 1 patch TD Q72H [facility] Stop: 10/19/17 19:32 Last Admin: 10/12/17 22:11 Dose: Not Given Folic Acid (Folic Acid -) 1 mg PO DAILY [facility] Last Admin: 10/14/17 10:27 Dose: 1 mg Gabapentin (Neurontin -) 200 mg PO TID [facility] Last Admin: 10/15/17 05:28 Dose: 200 mg Hydromorphone HCl (Dilaudid Injection -) 3 mg IVPB Q4H PRN PRN Reason: PAIN Last Admin: 10/15/17 07:00 Dose: 3 mg Nafcillin Sodium 2 gm/ (Dextrose) 100 mls @ 100 mls/hr IVPB Q4H-IV MARC PRN Reason: Protocol Last Admin: 10/15/17 10:38 Dose: 100 mls/hr Sodium Chloride (Normal Saline -) 1,000 mls @ 75 mls/hr IV ASDIR [facility] Last Admin: 10/14/17 14:15 Dose: 75 mls/hr Levothyroxine Sodium (Synthroid -) 100 mcg PO DAILY@0700 [facility] Last Admin: 10/15/17 06:08 Dose: 100 mcg Lidocaine (Lidoderm Patch -) 1 patch TP DAILY [facility] Last Admin: 10/14/17 10:44 Dose: Not Given Magnesium Oxide (Mag-Ox -) 400 mg PO BID [facility] Last Admin: 10/14/17 21:52 Dose: 400 mg Mirtazapine (Remeron -) 15 mg PO HS [facility] Last Admin: 10/14/17 21:54 Dose: 15 mg Miscellaneous (Lidoderm Patch Removal) 1 each MC DAILY@2200 [facility] Last Admin: 10/14/17 21:57 Dose: 1 each Miscellaneous (Duragesic Patch Waste) 1 each MC PRN PRN PRN Reason: PAIN Morphine Sulfate (Ms Contin -) 15 mg PO TID [facility] Last Admin: 10/15/17 05:27 Dose: 15 mg Pantoprazole Sodium (Protonix -) 40 mg PO DAILY [facility] Last Admin: 10/14/17 10:27 Dose: 40 mg Gen: Awake and alert, slurred speech Heart: RRR Lung: decreased breath sounds on left Abd: soft, nontender Ext: (+) Amp Laboratory Results - last 24 hr 10/15/17 10/15/17 06:20 06:20 WBC 15.4 H RBC 4.10 Hgb 9.4 L Hct 29.9 L MCV 73.0 L MCH 22.9 L MCHC 31.4 L RDW 20.2 H Plt Count 23 L* D MPV 8.7 Absolute Neuts (auto) 14.3 L Absolute Lymphs (auto) 0.2 L Absolute Monos (auto) 0.8 L Absolute Eos (auto) 0.0 Absolute Basos (auto) 0.0 L Neutrophils % 93.0 H Lymphocytes % 1.3 L D Monocytes % 5.4 D Eosinophils % 0.1 Basophils % 0.2 Sodium 136 Potassium 3.3 L Chloride 97 L Carbon Dioxide 30 Anion Gap 9 BUN 24 H Creatinine 0.9 Creat Clearance w eGFR > 60 Random Glucose 131 H Calcium 8.5 Phosphorus 3.5 Magnesium 2.1 D Total Bilirubin 0.9 D AST 23 D ALT 53 Alkaline Phosphatase 115 Total Protein 5.4 L Albumin 1.9 L ASSESSMENT AND PLAN: Acute CVA vs underlying mets Metastatic NSCLC (Adenocarcinoma) to brain/bone MSSA Bacteremia Right Atelectasis Thrombocytopenia Anemia Hypothyroidism - continue antibiotics - for port removal / platelet transfusion - pain control - monitor CBC - transfuse as needed - IVF - replete lytes - DNR - Floor Dr Figueroa Critical care time spent in reviewing chart, evaluating patient and formulating plan 35 min
[2017-10-15] MEDS ORDERED: LIDOCAINE HCL 1%, 10 MG/ML (20ML VIAL) ONE (12:35)
[2017-10-15] MEDS ORDERED: MIDAZOLAM HCL 2 MG/2 ML SINGLE DOSE VIAL ONE (12:59)
--- NOTE | 2017-10-15 13:10 | PN ---
Progress Note, [employer]IES MANAGER - Note Progress Note: Selected Entries 10/14/17 10/14/17 10/14/17 02:00 06:00 10:00 Supper Temperature 97.2 F L 97.2 F L 97.8 F 10/14/17 10/14/17 10/14/17 14:00 18:00 22:00 Supper 75% Temperature 97.6 F 97.6 F 10/15/17 10/15/17 02:00 10:00 Supper Temperature 97.7 F 97.5 F L Laboratory Tests 10/13/17 10/14/17 10/15/17 05:35 06:00 06:20 WBC 14.6 H 13.0 H 15.4 H MBS reviewed. Chopped/nectar. Monitor tolerance. NPO for procedure.
[2017-10-15] MEDS ORDERED: D5-1/2NS+40 MEQ KCL - 40 MEQ/1,000 ML INFUS.BAG IV SCH (13:15)
--- NOTE | 2017-10-15 13:15 | PN ---
Progress Note (short form) - Note Progress Note: Renal follow up for LEIDA Pt seen and examined in the ICU awake and alert npo for port-a-cath removal no acute complaints Vital Signs Temperature 97.5 F L 10/15/17 10:00 Pulse Rate 122 H 10/15/17 10:00 Respiratory Rate 19 10/15/17 10:00 Blood Pressure 116/87 10/15/17 10:00 O2 Sat by Pulse Oximetry (%) 98 10/14/17 22:00 Intake & Output 10/12/17 10/13/17 10/14/17 10/15/17 23:59 23:59 23:59 23:59 Intake Total 500 2215.5 1979.5 710 Output Total 700 1500 300 Balance 500 1515.5 479.5 410 Weight 72.575 kg 73.119 kg 71.668 kg NAD MMM RRR CTA soft NT/ND No LE edema CBC, BMP 10/15/17 06:20 10/15/17 06:20 Laboratory Tests 10/15/17 06:20 Calcium 8.5 Phosphorus 3.5 Magnesium 2.1 D Current Medications Dexamethasone (Decadron -) 4 mg PO TID MARC Last Admin: 10/15/17 05:27 Dose: 4 mg Fentanyl (Duragesic 25mcg Patch -) 1 patch TD Q72H [facility] Stop: 10/19/17 19:32 Last Admin: 10/12/17 22:11 Dose: Not Given Folic Acid (Folic Acid -) 1 mg PO DAILY MARC Last Admin: 10/14/17 10:27 Dose: 1 mg Gabapentin (Neurontin -) 200 mg PO TID MARC Last Admin: 10/15/17 05:28 Dose: 200 mg Hydromorphone HCl (Dilaudid Injection -) 3 mg IVPB Q4H PRN PRN Reason: PAIN Last Admin: 10/15/17 11:59 Dose: 3 mg Nafcillin Sodium 2 gm/ (Dextrose) 100 mls @ 100 mls/hr IVPB Q4H-IV MARC PRN Reason: Protocol Last Admin: 10/15/17 10:38 Dose: 100 mls/hr Sodium Chloride (Normal Saline -) 1,000 mls @ 75 mls/hr IV ASDIR [facility] Last Admin: 10/14/17 14:15 Dose: 75 mls/hr Levothyroxine Sodium (Synthroid -) 100 mcg PO DAILY@0700 [facility] Last Admin: 10/15/17 06:08 Dose: 100 mcg Lidocaine (Lidoderm Patch -) 1 patch TP DAILY [facility] Last Admin: 10/14/17 10:44 Dose: Not Given Magnesium Oxide (Mag-Ox -) 400 mg PO BID [facility] Last Admin: 10/14/17 21:52 Dose: 400 mg Mirtazapine (Remeron -) 15 mg PO HS [facility] Last Admin: 10/14/17 21:54 Dose: 15 mg Miscellaneous (Lidoderm Patch Removal) 1 each MC DAILY@2200 [facility] Last Admin: 10/14/17 21:57 Dose: 1 each Miscellaneous (Duragesic Patch Waste) 1 each MC PRN PRN PRN Reason: PAIN Morphine Sulfate (Ms Contin -) 15 mg PO TID [facility] Last Admin: 10/15/17 05:27 Dose: 15 mg Pantoprazole Sodium (Protonix -) 40 mg PO DAILY [facility] Last Admin: 10/14/17 10:27 Dose: 40 mg 51 year old gentleman with PMhx of metastatic adenocarcinoma of the lung who presented with complaints of back pain and found to have metastatic disease on his thoracic spine with bacteremia, opacification of his lung, new CVA and LEIDA with Cr of 1.5. #Acute Renal Failure in setting of bacteremia/Sepsis Renal function now improved and stable will change IVF to D5 1/2 NS at 75cc as per is NPO if taking in a good PO diet can d/c IV as pt appears evolemic Would trend BUN/Cr and electrolytes #Hyponatremia Trend on hypotonic saline #Hypokalemia/Hypomagnesemia improved today #Metastatic Lung Ca supportive care Pain control #new CVA neurology following #MSSA Bacteremia on Nafcillin per ID to have port-a-cath removed Francisco North DO
[2017-10-15] MEDS ORDERED: LIDOCAINE HCL 1%, 10 MG/ML (20ML VIAL) INF ONE (13:47)
[2017-10-15] MEDS ORDERED: ALBUTEROL SO4 2.5/IPRATROPIUM 0.5 INH SOL 3 ML VIAL.NEB. NEB ONE (14:20)
[2017-10-15] MEDS: MAGNESIUM OXIDE 400 MG TABLET (FP) PO SCH ×2 (15:28→21:31)
[2017-10-15] MEDS: FOLIC ACID 1 MG TABLET (FP) PO SCH (15:28)
[2017-10-15] MEDS: LIDOCAINE 5% TOPICAL PATCH TP SCH (15:28)
[2017-10-15] MEDS: PANTOPRAZOLE 40 MG TABLET (FP) PO SCH (15:54)
--- NOTE | 2017-10-15 18:16 | OP ---
Operative Note - Note: Operative Date: 10/15/17 Pre-Operative Diagnosis: infected port Operation: Removal of port. Post-Operative Diagnosis: Same as Pre-op Surgeon: Tavo Hall Anesthesia: Fractional Estimated Blood Loss (mls): 5 Operative Report Dictated: Yes
[2017-10-15] MEDS: LIDOCAINE PATCH REMOVAL MC SCH (21:30)
[2017-10-15] MEDS: MIRTAZAPINE 15 MG TABLET (FP) PO SCH (21:31)
[2017-10-15] MEDS: fentaNYL 25mcg/hr PATCH.TD72 TD SCH (21:31)
--- NOTE | 2017-10-15 23:54 | PN ---
Progress Note, Physician - Current Medication List Current Medications: Active Medications Dexamethasone (Decadron -) 4 mg PO TID [facility] Last Admin: 10/15/17 21:30 Dose: 4 mg Fentanyl (Duragesic 25mcg Patch -) 1 patch TD Q72H [facility] Stop: 10/19/17 19:32 Last Admin: 10/15/17 21:31 Dose: 1 patch Folic Acid (Folic Acid -) 1 mg PO DAILY [facility] Last Admin: 10/15/17 15:28 Dose: Not Given Gabapentin (Neurontin -) 200 mg PO TID [facility] Last Admin: 10/15/17 21:29 Dose: 200 mg Hydromorphone HCl (Dilaudid Injection -) 3 mg IVPB Q4H PRN PRN Reason: PAIN Last Admin: 10/15/17 11:59 Dose: 3 mg Nafcillin Sodium 2 gm/ (Dextrose) 100 mls @ 100 mls/hr IVPB Q4H-IV MARC PRN Reason: Protocol Last Admin: 10/15/17 21:33 Dose: 100 mls/hr Dextrose/Sodium Chloride (D5-1/2ns+40 Meq Kcl -) 40 meq in 1,000 mls @ 75 mls/ hr IV ASDIR [facility] Last Admin: 10/15/17 15:59 Dose: 75 mls/hr Levothyroxine Sodium (Synthroid -) 100 mcg PO DAILY@0700 [facility] Last Admin: 10/15/17 06:08 Dose: 100 mcg Lidocaine (Lidoderm Patch -) 1 patch TP DAILY [facility] Last Admin: 10/15/17 15:28 Dose: Not Given Magnesium Oxide (Mag-Ox -) 400 mg PO BID [facility] Last Admin: 10/15/17 21:31 Dose: 400 mg Mirtazapine (Remeron -) 15 mg PO HS [facility] Last Admin: 10/15/17 21:31 Dose: 15 mg Miscellaneous (Lidoderm Patch Removal) 1 each MC DAILY@2200 [facility] Last Admin: 10/15/17 21:30 Dose: Not Given Miscellaneous (Duragesic Patch Waste) 1 each MC PRN PRN PRN Reason: PAIN Morphine Sulfate (Ms Contin -) 15 mg PO TID [facility] Last Admin: 10/15/17 21:30 Dose: 15 mg Pantoprazole Sodium (Protonix -) 40 mg PO DAILY [facility] Last Admin: 10/15/17 15:54 Dose: Not Given - Objective Vital Signs: Vital Signs Temperature 97.4 F L 10/15/17 14:00 Pulse Rate 88 10/15/17 21:58 Respiratory Rate 13 10/15/17 21:58 Blood Pressure 99/68 10/15/17 21:58 O2 Sat by Pulse Oximetry (%) 95 10/15/17 19:54 Labs: CBC, BMP 10/15/17 06:20 10/15/17 06:20 INR, PTT INR 1.27 (0.82-1.09) H 10/13/17 16:00 Fibrinogen 631.0 mg/dL (238-498) H 10/13/17 16:00 Problem List - Problems (1) Intractable back pain Code(s): M54.9 - DORSALGIA, UNSPECIFIED (2) Thrombocytopenia Code(s): D69.6 - THROMBOCYTOPENIA, UNSPECIFIED (3) Metastatic adenocarcinoma Code(s): C79.9 - SECONDARY MALIGNANT NEOPLASM OF UNSPECIFIED SITE (4) Anemia Code(s): D64.9 - ANEMIA, UNSPECIFIED Qualifiers: Bone marrow failure anemia type: pancytopenia, antineoplastic chemotherapy- induced (5) COPD (chronic obstructive pulmonary disease) Code(s): J44.9 - CHRONIC OBSTRUCTIVE PULMONARY DISEASE, UNSPECIFIED Qualifiers: COPD type: unspecified COPD Qualified Code(s): J44.9 - Chronic obstructive pulmonary disease, unspecified (6) Hypothyroidism Code(s): E03.9 - HYPOTHYROIDISM, UNSPECIFIED Qualifiers: Hypothyroidism type: unspecified Qualified Code(s): E03.9 - Hypothyroidism , unspecified
[2017-10-16] MEDS: HYDROmorphone HCL CARPU-JECT 2 MG/1 ML DISP.SYRIN IVPB PRN (03:00)
[2017-10-16] MEDS ORDERED: PT OWN MED DRAWER 7, Y5N ONE ×4 (03:42→17:18)
[2017-10-16] MEDS: NAFCILLIN - 2 GM in DEXTROSE 5%-WATER - 100 ML IVPB SCH ×6 (03:43→22:25)
[2017-10-16 06:38] LABS: BASO % 0.3 % (0-2.0); EOS % 0.2 % (0-4.5); HEMATOCRIT 27.6 % (35.4-49); HEMOGLOBIN 8.6 GM/dL (11.7-16.9); LYMPH % 6.9 % (8-40); MCHC 31.1 g/dl (32.0-35.9); MEAN CELL VOLUME 74.1 fl (80-96); MEAN PLT VOLUME 8.8 fl (7.5-11.1); MONO % 2.6 % (3.8-10.2); RBC 3.72 M/mm3 (4.00-5.60); RDW 20.3 % (11.9-15.9); WHITE BLOOD COUNT 12.1 K/mm3 (4.0-10.0)
[2017-10-16] MEDS: morphine SO4 SUSTAINED ACTING 15 MG TABLET.SA PO SCH ×2 (06:41→17:48)
[2017-10-16] MEDS: GABAPENTIN 100 MG CAPSULE (FP) PO SCH ×3 (06:42→22:23)
[2017-10-16] MEDS: DEXAMETHASONE 4 MG TABLET (FP) PO SCH ×2 (06:42→17:24)
[2017-10-16 06:56] LABS: PLATELET COUNT 33 K/MM3 (134-434)
[2017-10-16 07:00] LABS: ALBUMIN 1.7 g/dl (3.4-5.0); ANION GAP 7 (8-16); BLOOD UREA NITROGEN 33 mg/dL (7-18); CALCIUM 8.3 mg/dL (8.5-10.1); CHLORIDE 100 mmol/L (98-107); CO2 31 mmol/L (21-32); GLUCOSE,RANDOM 111 mg/dL (74-106); POTASSIUM 3.5 mmol/L (3.5-5.1); SGPT/ALT 42 U/L (12-78); SODIUM 138 mmol/L (136-145)
[2017-10-16 07:01] LABS: ALK PHOS 105 U/L (45-117); BILIRUBIN,TOTAL 1.3 mg/dL (0.2-1.0); CREATININE 1.6 mg/dL (0.7-1.3); SGOT/AST 34 U/L (15-37)
--- NOTE | 2017-10-16 07:34 | PN ---
Progress Note (short form) - Note Progress Note: ID Nafcillin now MSSA bacteremia Port removed. Afebrile Selected Entries 10/15/17 10/16/17 14:00 06:00 Temperature 97.4 F L Pulse Rate 95 H Respiratory 8 L Rate Blood Pressure 93/56 Microbiology 10/12/17 21:45 Blood - Peripheral Venous Blood Culture - Final Staphylococcus Aureus 10/12/17 21:25 Blood - Peripheral Venous Blood Culture - Final Staphylococcus Aureus 10/11/17 Unknown Blood - Central Line Blood Culture - Final Staphylococcus Aureus 10/11/17 Unknown Blood - Central Line Blood Culture - Final Staphylococcus Aureus 10/14/17 10:10 Blood - Peripheral Venous Blood Culture - Preliminary Staphylococcus Latex Coag Pos 10/14/17 10:10 Blood - Peripheral Venous Blood Culture - Preliminary Pending Organism Laboratory Tests 10/16/17 10/16/17 05:15 05:15 WBC 12.1 H Hgb 8.6 L Hct 27.6 L Plt Count 33 L* D BUN 33 H D Creatinine 1.6 H D Assessment MSSA bacteremia with multiple brain infarcts nonhemmoragic Metatstatic lung cancer Port removed ( second infected port) Severe thrombocytopenia ? infection vs marrow involved from [place] Plan Continue Nafcillin with repeat blood cultures today Vivian POST Declines brain MRI Problem List - Problems (1) Gram-positive bacteremia Code(s): R78.81 - BACTEREMIA (2) Gram-positive bacteremia Code(s): R78.81 - BACTEREMIA (3) Metastatic lung cancer (metastasis from lung to other site) Code(s): C34.90 - MALIGNANT NEOPLASM OF UNSP PART OF UNSP BRONCHUS OR LUNG (4) Cerebrovascular disease in cancer patient Code(s): I67.9 - CEREBROVASCULAR DISEASE, UNSPECIFIED; C80.1 - MALIGNANT ( PRIMARY) NEOPLASM, UNSPECIFIED
[2017-10-16] MEDS: LEVOTHYROXINE NA 100 MCG TABLET (FP) PO SCH (07:41)
[2017-10-16] MEDS ORDERED: RAPID SEQUENCE INTUBATION KIT NR ONE (09:22)
[2017-10-16] MEDS ORDERED: BENZOIN/ALOE VERA/STORAX/TOLU 58 ML BOTTLE ONE (09:23)
--- NOTE | 2017-10-16 09:23 | PN ---
Progress Note (short form) - Note Progress Note: PULMONARY/CCM Pt seen and examined in the ICU. Lethargic, poorly responsive this AM. On high flow O2 with 70% FiO2. Last Vital Signs Temp Pulse Resp BP Pulse Ox 98.0 F 95 H 8 L 93/56 100 10/16/17 06:00 10/16/17 06:00 10/16/17 06:00 10/16/17 06:00 10/16/17 06:31 Intake & Output 10/13/17 10/14/17 10/15/17 10/16/17 23:59 23:59 23:59 23:59 Intake Total 2215.5 1979.5 1935 1136.4 Output Total 700 1500 605 Balance 1515.5 479.5 1330 1136.4 Weight 72.575 kg 73.119 kg 71.668 kg 72.8 kg Gen: lethargic Heart: RRR Lung: bilateral rhonchi Abd: soft, nontender Ext: + edema CBC, BMP 10/16/17 05:15 10/16/17 05:15 Active Medications Dexamethasone (Decadron -) 4 mg PO TID [facility] Last Admin: 10/16/17 06:42 Dose: Not Given Fentanyl (Duragesic 25mcg Patch -) 1 patch TD Q72H [facility] Stop: 10/19/17 19:32 Last Admin: 10/15/17 21:31 Dose: 1 patch Folic Acid (Folic Acid -) 1 mg PO DAILY [facility] Last Admin: 10/15/17 15:28 Dose: Not Given Gabapentin (Neurontin -) 200 mg PO TID [facility] Last Admin: 10/16/17 06:42 Dose: Not Given Hydromorphone HCl (Dilaudid Injection -) 3 mg IVPB Q4H PRN PRN Reason: PAIN Last Admin: 10/16/17 03:00 Dose: 3 mg Nafcillin Sodium 2 gm/ (Dextrose) 100 mls @ 100 mls/hr IVPB Q4H-IV MARC PRN Reason: Protocol Last Admin: 10/16/17 06:44 Dose: 100 mls/hr Dextrose/Sodium Chloride (D5-1/2ns+40 Meq Kcl -) 40 meq in 1,000 mls @ 75 mls/ hr IV ASDIR [facility] Last Admin: 10/15/17 15:59 Dose: 75 mls/hr Levothyroxine Sodium (Synthroid -) 100 mcg PO DAILY@0700 [facility] Last Admin: 10/16/17 07:41 Dose: Not Given Lidocaine (Lidoderm Patch -) 1 patch TP DAILY [facility] Last Admin: 10/15/17 15:28 Dose: Not Given Magnesium Oxide (Mag-Ox -) 400 mg PO BID [facility] Last Admin: 10/15/17 21:31 Dose: 400 mg Mirtazapine (Remeron -) 15 mg PO HS [facility] Last Admin: 10/15/17 21:31 Dose: 15 mg Miscellaneous (Lidoderm Patch Removal) 1 each MC DAILY@2200 [facility] Last Admin: 10/15/17 21:30 Dose: Not Given Miscellaneous (Duragesic Patch Waste) 1 each MC PRN PRN PRN Reason: PAIN Morphine Sulfate (Ms Contin -) 15 mg PO TID [facility] Last Admin: 10/16/17 06:41 Dose: Not Given Pantoprazole Sodium (Protonix -) 40 mg PO DAILY [facility] Last Admin: 10/15/17 15:54 Dose: Not Given A/P Acute Hypoxic Respiratory Failure Acute CVA vs underlying mets Metastatic NSCLC (Adenocarcinoma) to brain/bone MSSA Bacteremia Acute Kidney Injury Right Atelectasis Thrombocytopenia Anemia Hypothyroidism - will intubate pt - continue antibiotics - f/u pending cultures - pain control - monitor CBC - transfuse as needed - IVF - replete lytes - pt now DNR not DNI - continue ICU monitoring - poor overall prognosis critical care time spent in reviewing chart, evaluating patient and formulating plan 35 min
[2017-10-16] MEDS ORDERED: PROPOFOL 1,000,000 MCG/100 ML VIAL ONE (09:24)
[2017-10-16] MEDS ORDERED: MIDAZOLAM HCL 5 MG/1 ML Single Dose Vial ONE ×2 (09:26→18:49)
[2017-10-16] MEDS ORDERED: MIDAZOLAM HCL 2 MG/2 ML SINGLE DOSE VIAL ONE (09:39)
[2017-10-16] MEDS ORDERED: NOREPINEPHRINE BITARTRATE 4 MG/4 ML ML IV ONE (09:52)
[2017-10-16] MEDS ORDERED: fentaNYL CITRATE 250 MCG/5 ML VIAL ONE ×5 (09:53→23:20)
--- NOTE | 2017-10-16 10:20 | PN ---
Physical Exam: Medicine coverage for Dr. Reyes SUBJECTIVE: Patient seen and examined in ICU. He is lethargic, restless, hypotensive, responsive to verbal/noxious st OBJECTIVE: Vital Signs Period Temp Pulse Resp BP Sys/Brandon Pulse Ox Last 24 Hr 97.4 F-98.1 F 85-119 8-80 85-116/56-90 95-100 PE Neuro: intubated, sedated Pulm: bilateral rhonchi, audible crackles CV: s1 s2 tachycardia Abd: s nt nd + bs Ext: upper ext edema Skin: R hand cyanosis, extremities cool to touch, feet cyanosis R>L Laboratory Results - last 24 hr 10/16/17 10/16/17 05:15 05:15 WBC 12.1 H RBC 3.72 L Hgb 8.6 L Hct 27.6 L MCV 74.1 L MCH 23.0 L MCHC 31.1 L RDW 20.3 H Plt Count 33 L* D MPV 8.8 Neutrophils % 90.0 H Lymphocytes % 6.9 L D Monocytes % 2.6 L Eosinophils % 0.2 D Basophils % 0.3 Sodium 138 Potassium 3.5 Chloride 100 Carbon Dioxide 31 Anion Gap 7 L BUN 33 H D Creatinine 1.6 H D Creat Clearance w eGFR 45.44 Random Glucose 111 H Calcium 8.3 L Total Bilirubin 1.3 H D AST 34 D ALT 42 D Alkaline Phosphatase 105 Total Protein 5.0 L Albumin 1.7 L Active Medications Generic Name Dose Route Start Last Admin Trade Name Freq PRN Reason Stop Dose Admin Dexamethasone 4 mg 10/11/17 22:00 10/16/17 06:42 Decadron - PO Not Given TID [facility] Fentanyl 1 patch 10/12/17 19:45 10/15/17 21:31 Duragesic 25mcg Patch - TD 10/19/17 19:32 1 patch Q72H MARC Administration Folic Acid 1 mg 10/09/17 10:00 10/15/17 15:28 Folic Acid - PO Not Given DAILY MARC Gabapentin 200 mg 10/11/17 22:30 10/16/17 06:42 Neurontin - PO Not Given TID MARC Hydromorphone HCl 3 mg 10/14/17 00:31 10/16/17 03:00 Dilaudid Injection - IVPB 3 mg Q4H PRN Administration PAIN Nafcillin Sodium 2 gm/ 100 mls @ 100 mls/hr 10/14/17 10:00 10/16/17 06:44 Dextrose IVPB 100 mls/hr Q4H-IV MARC Administration Protocol Dextrose/Sodium Chloride 40 meq in 1,000 mls @ 75 mls/hr 10/15/17 13:15 10/15 15:59 D5-1/2ns+40 Meq Kcl - IV 75 mls/hr ASDIR MARC Administration Levothyroxine Sodium 100 mcg 10/09/17 07:00 10/16/17 07:41 Synthroid - PO Not Given DAILY@0700 [facility] Lidocaine 1 patch 10/09/17 10:00 10/15/17 15:28 Lidoderm Patch - TP Not Given DAILY [facility] Magnesium Oxide 400 mg 10/08/17 22:00 10/15/17 21:31 Mag-Ox - PO 400 mg BID [facility] Administration Mirtazapine 15 mg 10/08/17 22:00 10/15/17 21:31 Remeron - PO 15 mg HS MARC Administration Miscellaneous 1 each 10/08/17 22:00 10/15/17 21:30 Lidoderm Patch Removal MC Not Given DAILY@2200 [facility] Miscellaneous 1 each 10/12/17 19:32 Duragesic Patch Waste MC PRN PRN PAIN Morphine Sulfate 15 mg 10/12/17 22:00 10/16/17 06:41 Ms Contin - PO Not Given TID [facility] Pantoprazole Sodium 40 mg 10/09/17 10:00 10/15/17 15:54 Protonix - PO Not Given DAILY [facility] Assessment: 51 year male with PMHx pf COPD and hypothyroidism diagnosed with stage 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 Admitted 10/07 with increased back pain d/t spinal mets. Has had mediport for IV infusion (now removed), now with MSSA bacteremia, and R MCA stroke, today increased lethargy with high flow oxygen requiring intubation. Plan: 1. Acute hypoxic resp failure - Intubated now - Fentanyl gtt - Discontinue patch - Check ABG - Pt is DNR not DNI - CXR unchanged, opacification of R lung 2. MSSA bacteremia - Continue nafcillin - Repeat blood cx - Port o cath removed 10/15 3. Hypotension - Stop d5 1/2 ns w/ kcl - x1 ns bolus - BP improved w fluids - Start ns 100cc/hr 4. Stage 4 adenocarcinoma of lung - Will change decadron to 4mg IV 5. New CVA, R MCA - Declined MRI 6. LEIDA - Due to sepsis/ hypotension - Cr increased today - Change fluids to NS 7. Hyponatremia - Resolved CODE STATUS : DNR Visit type - Emergency Visit Emergency Visit: Yes ED Registration Date: 10/08/17 Care time: The patient presented to the Emergency Department on the above date and was hospitalized for further evaluation of their emergent condition. - New Patient This patient is new to me today: Yes Date on this admission: 10/16/17 - Critical Care Critical Care patient: Yes Total Critical Care Time (in minutes): 35 Critical Care Statement: The care of this patient involved high complexity decision making to prevent further life threatening deterioration of the patient 's condition and/or to evaluate & treat vital organ system(s) failure or risk of failure. - Discharge Referral Referred to [facility] Med [facility] Yes
[2017-10-16] MEDS: PANTOPRAZOLE 40 MG TABLET (FP) PO SCH (10:25)
[2017-10-16] MEDS: FOLIC ACID 1 MG TABLET (FP) PO SCH (10:31)
[2017-10-16] MEDS: MAGNESIUM OXIDE 400 MG TABLET (FP) PO SCH ×2 (10:31→22:23)
--- NOTE | 2017-10-16 11:03 | PN ---
Progress Note (short form) - Note Progress Note: Anesthesia postop note POD#1, S/P removal of infected port under MAC. Pat with metastatic adenocarcinoma. Non responsive. Hypotensive. SpO2 in 80s. Requires O2. continued palliative care. No complications related to anesthesia. signed off.
[2017-10-16] MEDS ORDERED: ALBUTEROL SO4 0.083% IH SOL 2.5 MG/3 ML VIAL.NEB. NEB PRN (11:42)
--- NOTE | 2017-10-16 12:18 | PROC ---
Intubation - Intubation Reason for Intubation: Respiratory Failure Time of Intubation: 10:00 Intubation Method: orotracheal Blade used: Mac (4) Tube Size (cm): 8.0 Tube position @ lip (cm): 23 Tube position confirmed by: Direct visualization, CO2 detector, Chest x-ray Breath Sounds after Intubation: right greater than left Post Intubation Xray: Yes
[2017-10-16] MEDS: ALBUTEROL SO4 2.5/IPRATROPIUM 0.5 INH SOL 3 ML VIAL.NEB. NEB SCH ×2 (13:10→19:35)
--- NOTE | 2017-10-16 14:16 | PN ---
Progress Note, Physician History of Present Illness: Port removed, intubated for acute hypoxic respiratory failure, awake on vent. - Current Medication List Current Medications: Active Medications Albuterol/Ipratropium (Duoneb -) 1 amp NEB QIDR [facility] Dexamethasone (Decadron -) 4 mg PO TID [facility] Last Admin: 10/16/17 06:42 Dose: Not Given Folic Acid (Folic Acid -) 1 mg PO DAILY [facility] Last Admin: 10/16/17 10:31 Dose: Not Given Gabapentin (Neurontin -) 200 mg PO TID [facility] Last Admin: 10/16/17 06:42 Dose: Not Given Hydromorphone HCl (Dilaudid Injection -) 3 mg IVPB Q4H PRN PRN Reason: PAIN Last Admin: 10/16/17 03:00 Dose: 3 mg Nafcillin Sodium 2 gm/ (Dextrose) 100 mls @ 100 mls/hr IVPB Q4H-IV [facility] PRN Reason: Protocol Last Admin: 10/16/17 10:11 Dose: 100 mls/hr Levothyroxine Sodium (Synthroid -) 100 mcg PO DAILY@0700 [facility] Last Admin: 10/16/17 07:41 Dose: Not Given Lidocaine (Lidoderm Patch -) 1 patch TP DAILY [facility] Last Admin: 10/15/17 15:28 Dose: Not Given Magnesium Oxide (Mag-Ox -) 400 mg PO BID [facility] Last Admin: 10/16/17 10:31 Dose: Not Given Midazolam HCl (Versed -) 2 mg IVPUSH Q1H PRN PRN Reason: AGITATION Mirtazapine (Remeron -) 15 mg PO HS [facility] Last Admin: 10/15/17 21:31 Dose: 15 mg Miscellaneous (Lidoderm Patch Removal) 1 each MC DAILY@2200 [facility] Last Admin: 10/15/17 21:30 Dose: Not Given Miscellaneous (Duragesic Patch Waste) 1 each MC PRN PRN PRN Reason: PAIN Morphine Sulfate (Ms Contin -) 15 mg PO TID [facility] Last Admin: 10/16/17 06:41 Dose: Not Given Pantoprazole Sodium (Protonix -) 40 mg PO DAILY [facility] Last Admin: 10/16/17 10:25 Dose: Not Given Scopolamine HBr (Transderm-Scop -) 1 patch TD Q72H [facility] - Objective Vital Signs: Vital Signs Temperature 98.1 F 12/23/17 10:00 Pulse Rate 102 H 10/16/17 10:00 Respiratory Rate 14 10/16/17 11:40 Blood Pressure 85/58 10/16/17 10:00 O2 Sat by Pulse Oximetry (%) 100 10/16/17 06:31 Constitutional: Yes: No Distress, Calm Neck: Yes: Supple Cardiovascular: Yes: Regular Rate and Rhythm Respiratory: Yes: Intubated, Mechanically Ventilated, Rhonchi Gastrointestinal: Yes: Normal Bowel Sounds, Soft Edema: No Labs: CBC, BMP 10/16/17 05:15 10/16/17 05:15 INR, PTT INR 1.27 (0.82-1.09) H 10/13/17 16:00 Fibrinogen 631.0 mg/dL (238-498) H 10/13/17 16:00 Problem List - Problems (1) Gram-positive bacteremia Code(s): R78.81 - BACTEREMIA (2) Metastatic lung cancer (metastasis from lung to other site) Code(s): C34.90 - MALIGNANT NEOPLASM OF UNSP PART OF UNSP BRONCHUS OR LUNG (3) Acquired pancytopenia Code(s): D61.818 - OTHER PANCYTOPENIA (4) Anemia Code(s): D64.9 - ANEMIA, UNSPECIFIED Qualifiers: Bone marrow failure anemia type: pancytopenia, antineoplastic chemotherapy- induced (5) Atelectasis Code(s): J98.11 - ATELECTASIS (6) Cerebrovascular disease in cancer patient Code(s): I67.9 - CEREBROVASCULAR DISEASE, UNSPECIFIED; C80.1 - MALIGNANT ( PRIMARY) NEOPLASM, UNSPECIFIED (7) Hypothyroidism Code(s): E03.9 - HYPOTHYROIDISM, UNSPECIFIED Qualifiers: Hypothyroidism type: unspecified Qualified Code(s): E03.9 - Hypothyroidism , unspecified (8) Metastatic adenocarcinoma Code(s): C79.9 - SECONDARY MALIGNANT NEOPLASM OF UNSPECIFIED SITE (9) Obstructive pneumonia Code(s): J18.9 - PNEUMONIA, UNSPECIFIED ORGANISM (10) Primary lung adenocarcinoma Code(s): C34.90 - MALIGNANT NEOPLASM OF UNSP PART OF UNSP BRONCHUS OR LUNG Qualifiers: Laterality: unspecified laterality Qualified Code(s): C34.90 - Malignant neoplasm of unspecified part of unspecified bronchus or lung (11) Thrombocytopenia Code(s): D69.6 - THROMBOCYTOPENIA, UNSPECIFIED (12) Line sepsis Code(s): T82.7XXA - INFECT/INFLM REACT D/T OTH CARDI/VASC DEV/IMPLNT/GRFT, INIT Qualifiers: Encounter type: subsequent encounter Qualified Code(s): T82.7XXD - Infection and inflammatory reaction due to other cardiac and vascular devices, implants and grafts, subsequent encounter Assessment/Plan 1. 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 Persistent MSSA bacteremia, line sepsis post port removal 4. Hypothyroidism 5. Anemia, Thrombocytopenia 6. Right lung opacification - ATX, vs post-obstruction PNA vs large airway mucous plugging 7. Acute on CKD P:1. Declined brain MRI, TTE poor quality, not ideal candidate for DANNI given extent of underlying disease and co-morbid conditions 2. Monitor telemetry r/o PAF 3. Nafcillin per ID, f/u C&S for clearance post port removal 4. Hydration, transfuse for Hgb<8.0, observe monitor renal recovery 5. Chest PT, O2 to keep saO2>90%, BD as needed 6. Resume and complete T spine RT when medically feasible 7. Vent support per ICU
[2017-10-16 14:19] LABS: ARTERIAL BLD GAS O2 SATURATION 99.2 % (90-98.9); ARTERIAL BLOOD GAS BASE EXCESS 0.1 meq/l (-2-2); ARTERIAL BLOOD GAS pH 7.31 (7.35-7.45)
[2017-10-16 14:25] LABS: ALLENS TEST POSITIVE
--- NOTE | 2017-10-16 15:28 | PN ---
Progress Note (short form) - Note Progress Note: Seen in follow up. Events of 24 hours reviewed - respiratory decompensation requiring intubation/ ventillation this afternoon. Meds reviewed. Current Medications Generic Name Dose Route Start Last Admin Trade Name Freq PRN Reason Stop Dose Admin Albuterol/Ipratropium 1 amp 10/16/17 12:00 Duoneb - NEB QIDR [facility] Dexamethasone 4 mg 10/11/17 22:00 10/16/17 06:42 Decadron - PO Not Given TID [facility] Folic Acid 1 mg 10/09/17 10:00 10/16/17 10:31 Folic Acid - PO Not Given DAILY [facility] Gabapentin 200 mg 10/11/17 22:30 10/16/17 06:42 Neurontin - PO Not Given TID [facility] Hydromorphone HCl 3 mg 10/14/17 00:31 10/16/17 03:00 Dilaudid Injection - IVPB 3 mg Q4H PRN Administration PAIN Nafcillin Sodium 2 gm/ 100 mls @ 100 mls/hr 10/14/17 10:00 10/16/17 10:11 Dextrose IVPB 100 mls/hr Q4H-IV [facility] Administration Protocol Levothyroxine Sodium 100 mcg 10/09/17 07:00 10/16/17 07:41 Synthroid - PO Not Given DAILY@0700 [facility] Lidocaine 1 patch 10/09/17 10:00 10/15/17 15:28 Lidoderm Patch - TP Not Given DAILY [facility] Magnesium Oxide 400 mg 10/08/17 22:00 10/16/17 10:31 Mag-Ox - PO Not Given BID [facility] Midazolam HCl 2 mg 10/16/17 11:57 Versed - IVPUSH Q1H PRN AGITATION Mirtazapine 15 mg 10/08/17 22:00 10/15/17 21:31 Remeron - PO 15 mg HS [facility] Administration Miscellaneous 1 each 10/08/17 22:00 10/15/17 21:30 Lidoderm Patch Removal MC Not Given DAILY@2200 [facility] Miscellaneous 1 each 10/12/17 19:32 Duragesic Patch Waste MC PRN PRN PAIN Morphine Sulfate 15 mg 10/12/17 22:00 10/16/17 06:41 Ms Contin - PO Not Given TID [facility] Pantoprazole Sodium 40 mg 10/09/17 10:00 10/16/17 10:25 Protonix - PO Not Given DAILY [facility] Scopolamine HBr 1 patch 10/16/17 12:00 Transderm-Scop - TD Q72H [facility] On exam: Last Vital Signs Temp Pulse Resp BP Pulse Ox 98.1 F 102 H 15 85/58 100 10/16/17 10:00 10/16/17 10:00 10/16/17 13:50 10/16/17 10:00 10/16/17 06:31 Labs reviewed. CBC, BMP 10/16/17 05:15 10/16/17 05:15 Assessment. Metastatic NSCLC, (brain and spine), presented with possible new symptomatic spinal lesion, with hospital stay complicated by multifocal acute CVAs, sepsis ( ?infected port, ?endocarditis), and today respiratory decompensation requiring intubation. Supportive care for now, hopefully some prospect of reversibility of acute respiratory decompensation, with hope of extubation. If requirement for ventilation prolonged, without reasonable expectation of extubation, then withdrawal of care with comfort measures only would be appropriate.
[2017-10-16] MEDS: SCOPOLAMINE HYDROBROMIDE 1 PATCH PATCH.TD72 TD SCH (17:21)
[2017-10-16] MEDS: MIDAZOLAM HCL 2 MG/2 ML SINGLE DOSE VIAL IVPUSH PRN ×2 (17:49→20:00)
--- NOTE | 2017-10-16 18:25 | PN ---
Progress Note (short form) - Note Progress Note: seen in icu intubated on vent low bp Current Medications Albuterol/Ipratropium (Duoneb -) 1 amp NEB QIDR [facility] Dexamethasone Sodium Phosphate (Decadron Injection -) 4 mg IM TID [facility] Folic Acid (Folic Acid -) 1 mg PO DAILY [facility] Last Admin: 10/16/17 10:31 Dose: Not Given Gabapentin (Neurontin -) 200 mg PO TID [facility] Last Admin: 10/16/17 17:22 Dose: Not Given Hydromorphone HCl (Dilaudid Injection -) 3 mg IVPB Q4H PRN PRN Reason: PAIN Last Admin: 10/16/17 03:00 Dose: 3 mg Nafcillin Sodium 2 gm/ (Dextrose) 100 mls @ 100 mls/hr IVPB Q4H-IV [facility] PRN Reason: Protocol Last Admin: 10/16/17 17:24 Dose: 100 mls/hr Fentanyl 500 mcg/ Dextrose 100 mls @ 5 mls/hr IVPB TITR [facility]; 25 MCG/HR PRN Reason: Protocol Levothyroxine Sodium (Synthroid -) 100 mcg PO DAILY@0700 [facility] Last Admin: 10/16/17 07:41 Dose: Not Given Lidocaine (Lidoderm Patch -) 1 patch TP DAILY [facility] Last Admin: 10/15/17 15:28 Dose: Not Given Magnesium Oxide (Mag-Ox -) 400 mg PO BID [facility] Last Admin: 10/16/17 10:31 Dose: Not Given Midazolam HCl (Versed -) 2 mg IVPUSH Q1H PRN PRN Reason: AGITATION Last Admin: 10/16/17 17:49 Dose: 2 mg Mirtazapine (Remeron -) 15 mg PO HS [facility] Last Admin: 10/15/17 21:31 Dose: 15 mg Miscellaneous (Lidoderm Patch Removal) 1 each MC DAILY@2200 [facility] Last Admin: 10/15/17 21:30 Dose: Not Given Miscellaneous (Duragesic Patch Waste) 1 each MC PRN PRN PRN Reason: PAIN Morphine Sulfate (Ms Contin -) 15 mg PO TID [facility] Last Admin: 10/16/17 17:48 Dose: Not Given Pantoprazole Sodium (Protonix -) 40 mg PO DAILY [facility] Last Admin: 10/16/17 10:25 Dose: Not Given Scopolamine HBr (Transderm-Scop -) 1 patch TD Q72H [facility] Last Admin: 10/16/17 17:21 Dose: 1 patch Last Vital Signs Temp Pulse Resp BP Pulse Ox 98.1 F 90 90 H 88/59 100 10/16/17 10:00 10/16/17 16:00 10/16/17 16:00 10/16/17 16:00 10/16/17 06:31 unresponsive/sedated vital signs lungs vented abd soft ext no edema CBC, BMP 10/16/17 05:15 10/16/17 05:15 IMP- LEIDA Prerenal azotemia r/o oliguria Plan monitor urine output
[2017-10-16] MEDS: FENTANYL INJECTION 500 MCG in DEXTROSE 5%-WATER - 90 ML IVPB SCH (19:49)
[2017-10-16] MEDS: LIDOCAINE 5% TOPICAL PATCH TP SCH (19:50)
[2017-10-16] MEDS ORDERED: DEXAMETHASONE SOD PHOSPHATE 4 MG/1 ML VIAL IM SCH (22:00)
[2017-10-16] MEDS: LIDOCAINE PATCH REMOVAL MC SCH (22:22)
[2017-10-16] MEDS: MIRTAZAPINE 15 MG TABLET (FP) PO SCH (22:23)
[2017-10-16] MEDS ORDERED: DEXTROSE 5%-0.45% SALINE 1,000 ML IV SCH ×2 (23:45)
[2017-10-17] MEDS: ALBUTEROL SO4 2.5/IPRATROPIUM 0.5 INH SOL 3 ML VIAL.NEB. NEB SCH ×4 (00:44→18:20)
[2017-10-17] MEDS: NAFCILLIN - 2 GM in DEXTROSE 5%-WATER - 100 ML IVPB SCH ×6 (01:33→22:00)
[2017-10-17] MEDS: DEXAMETHASONE SOD PHOSPHATE 4 MG/1 ML VIAL IVPUSH SCH ×3 (02:00→17:03)
[2017-10-17] MEDS ORDERED: fentaNYL CITRATE 250 MCG/5 ML VIAL ONE ×4 (05:40→20:33)
[2017-10-17] MEDS ORDERED: DEXAMETHASONE SOD PHOSPHATE 4 MG/1 ML VIAL IVPUSH SCH (06:00)
[2017-10-17] MEDS: MIDAZOLAM HCL 2 MG/2 ML SINGLE DOSE VIAL IVPUSH PRN ×4 (06:15→16:25)
[2017-10-17 06:31] LABS: EOS % 2.5 % (0-4.5); LYMPH % 2.6 % (8-40); MCHC 30.8 g/dl (32.0-35.9); MEAN CELL VOLUME 74.8 fl (80-96); MEAN PLT VOLUME 8.3 fl (7.5-11.1); MONO % 1.9 % (3.8-10.2); RBC 2.54 M/mm3 (4.00-5.60); RDW 20.4 % (11.9-15.9); WHITE BLOOD COUNT 9.5 K/mm3 (4.0-10.0)
[2017-10-17 06:36] LABS: INR 1.18 (0.82-1.09); PROTHROMBIN TIME (PATIENT) 13.3 SEC (9.98-11.88)
[2017-10-17] MEDS: LEVOTHYROXINE NA 100 MCG TABLET (FP) PO SCH (06:46)
[2017-10-17] MEDS: GABAPENTIN 100 MG CAPSULE (FP) PO SCH ×4 (06:46→22:00)
[2017-10-17 06:55] LABS: ALBUMIN 1.4 g/dl (3.4-5.0); ANION GAP 11 (8-16); BLOOD UREA NITROGEN 39 mg/dL (7-18); CALCIUM 8.1 mg/dL (8.5-10.1); CHLORIDE 100 mmol/L (98-107); CO2 27 mmol/L (21-32); GLUCOSE,RANDOM 95 mg/dL (74-106); PHOSPHOROUS 4.5 mg/dL (2.5-4.9); SGPT/ALT 34 U/L (12-78); SODIUM 138 mmol/L (136-145)
[2017-10-17 06:57] LABS: ALK PHOS 163 U/L (45-117); BILIRUBIN,TOTAL 1.6 mg/dL (0.2-1.0); TOT PROT 4.6 g/dl (6.4-8.2)
[2017-10-17 06:59] LABS: MAGNESIUM 2.2 mg/dL (1.8-2.4); POTASSIUM 3.9 mmol/L (3.5-5.1); SGOT/AST 35 U/L (15-37)
[2017-10-17 07:02] LABS: HEMOGLOBIN 5.8 GM/dL (11.7-16.9)
[2017-10-17 07:03] LABS: PLATELET COUNT 16 K/MM3 (134-434)
--- NOTE | 2017-10-17 07:10 | PN ---
Progress Note, Physician Chief Complaint: ID Had to be intubated in severe respiratory distress Afebrile Bloody respiratory secretions (low platelets) NAFCILLIN - Current Medication List Current Medications: Active Medications Albuterol/Ipratropium (Duoneb -) 1 amp NEB QIDR [facility] Last Admin: 10/17/17 05:52 Dose: 1 amp Dexamethasone Sodium Phosphate (Decadron Injection -) 4 mg IVPUSH Q8H-IV [facility] Last Admin: 10/17/17 02:00 Dose: 4 mg Folic Acid (Folic Acid -) 1 mg PO DAILY [facility] Last Admin: 10/16/17 10:31 Dose: Not Given Gabapentin (Neurontin -) 200 mg PO TID [facility] Last Admin: 10/17/17 06:46 Dose: Not Given Hydromorphone HCl (Dilaudid Injection -) 3 mg IVPB Q4H PRN PRN Reason: PAIN Last Admin: 10/16/17 03:00 Dose: 3 mg Nafcillin Sodium 2 gm/ (Dextrose) 100 mls @ 100 mls/hr IVPB Q4H-IV [facility] PRN Reason: Protocol Last Admin: 10/17/17 06:46 Dose: 100 mls/hr Fentanyl 500 mcg/ Dextrose 100 mls @ 5 mls/hr IVPB TITR [facility]; 25 MCG/HR PRN Reason: Protocol Last Admin: 10/16/17 19:49 Dose: 30 mls/hr Dextrose/Sodium Chloride (D5-1/2ns -) 1,000 mls @ 83 mls/hr IV ASDIR [facility] Levothyroxine Sodium (Synthroid -) 100 mcg PO DAILY@0700 [facility] Last Admin: 10/17/17 06:46 Dose: Not Given Lidocaine (Lidoderm Patch -) 1 patch TP DAILY [facility] Last Admin: 10/16/17 19:50 Dose: Not Given Magnesium Oxide (Mag-Ox -) 400 mg PO BID [facility] Last Admin: 10/16/17 22:23 Dose: Not Given Midazolam HCl (Versed -) 2 mg IVPUSH Q1H PRN PRN Reason: AGITATION Last Admin: 10/17/17 06:15 Dose: 2 mg Mirtazapine (Remeron -) 15 mg PO HS [facility] Last Admin: 10/16/17 22:23 Dose: Not Given Miscellaneous (Lidoderm Patch Removal) 1 each MC DAILY@2200 [facility] Last Admin: 10/16/17 22:22 Dose: 1 each Miscellaneous (Duragesic Patch Waste) 1 each [facility] PRN PRN PRN Reason: PAIN Morphine Sulfate (Ms Contin -) 15 mg PO TID [facility] Last Admin: 10/16/17 17:48 Dose: Not Given Pantoprazole Sodium (Protonix -) 40 mg PO DAILY [facility] Last Admin: 10/16/17 10:25 Dose: Not Given Scopolamine HBr (Transderm-Scop -) 1 patch TD Q72H [facility] Last Admin: 10/16/17 17:21 Dose: 1 patch - Objective Vital Signs: Vital Signs Temperature 99.0 F 10/17/17 06:00 Pulse Rate 88 10/17/17 06:00 Respiratory Rate 16 10/17/17 06:00 Blood Pressure 85/57 10/17/17 06:00 O2 Sat by Pulse Oximetry (%) 98 10/16/17 23:20 Cardiovascular: Yes: Regular Rate and Rhythm, Tachycardia, S1, S2 Respiratory: Yes: WNL, Regular, CTA Bilaterally, Other (Bilateral rhonchi) Gastrointestinal: Yes: WNL, Normal Bowel Sounds, Soft. No: Tenderness Extremities: Yes: Cold, Cool, Cyanosis Labs: CBC, BMP 10/17/17 05:00 10/17/17 05:00 INR, PTT INR 1.18 (0.82-1.09) H 10/17/17 05:00 Fibrinogen 631.0 mg/dL (238-498) H 10/13/17 16:00 Problem List - Problems (1) Gram-positive bacteremia Code(s): R78.81 - BACTEREMIA (2) Gram-positive bacteremia Code(s): R78.81 - BACTEREMIA (3) Metastatic lung cancer (metastasis from lung to other site) Code(s): C34.90 - MALIGNANT NEOPLASM OF UNSP PART OF UNSP BRONCHUS OR LUNG (4) Cerebrovascular disease in cancer patient Code(s): I67.9 - CEREBROVASCULAR DISEASE, UNSPECIFIED; C80.1 - MALIGNANT ( PRIMARY) NEOPLASM, UNSPECIFIED Assessment/Plan Microbiology 10/11/17 Unknown Blood - Central Line Blood Culture - Final Staphylococcus Aureus 10/11/17 Unknown Blood - Central Line Blood Culture - Final Staphylococcus Aureus 10/14/17 10:10 Blood - Peripheral Venous Blood Culture - Preliminary Staphylococcus Aureus 10/14/17 10:10 Blood - Peripheral Venous Blood Culture - Preliminary Pending Organism Laboratory Tests 10/13/17 10/17/17 10/17/17 05:35 05:00 05:00 WBC 14.6 H 9.5 Plt Count 16 L* D BUN 39 H Creatinine 2.0 H D Total Bilirubin 1.6 H D Alkaline Phosphatase 163 H D Assessment Respiratory failure Complete opacification of right lung MSSA bacteremia port realated now removed Metastatic lung cancer Bleeding from respiratory tract Thrombocytopenia sepsis related Severe anemia Sepsis syndrome secondary MSSA bacteremia LEIDA Nonhemmoragic infarcts suspect embolic from endocarditis Plan Continue Nafcillin as ordered Repeat blood cultures sent Prognosis poor Bertha POST Critical care time spent 35 minutes Vivian POST
[2017-10-17 07:21] LABS: ACTIVATED PTT 18.4 SECONDS (26.9-34.4)
[2017-10-17] MEDS: morphine SO4 SUSTAINED ACTING 15 MG TABLET.SA PO SCH ×3 (07:38→22:00)
[2017-10-17] MEDS ORDERED: PT OWN MED DRAWER 7, Y5N ONE (08:01)
[2017-10-17] MEDS: FOLIC ACID 1 MG TABLET (FP) PO SCH (09:04)
[2017-10-17] MEDS: LIDOCAINE 5% TOPICAL PATCH TP SCH (09:05)
[2017-10-17] MEDS: MAGNESIUM OXIDE 400 MG TABLET (FP) PO SCH ×2 (09:05→22:00)
[2017-10-17] MEDS: PANTOPRAZOLE 40 MG TABLET (FP) PO SCH (09:06)
--- NOTE | 2017-10-17 09:53 | PN ---
Physical Exam: SUBJECTIVE: Patient seen and examined in ICU. remains intubated and on fentanyl gtt. OBJECTIVE: Vital Signs Period Temp Pulse Resp BP Sys/Brandon Pulse Ox Last 24 Hr 98.0 F-99.0 F 85-104 14-80 84-98/56-65 86-100 PE Neuro: intubated, sedated Pulm: bilateral rhonchi, no bs on R, +MV CV: s1 s2 rrr Abd: s nt nd + bs Ext: upper ext edema Skin: R hand cyanosis, extremities cool to touch, dorsal mottling, b/l feet cyanosis MV AC/450/14/60%/10 Laboratory Results - last 24 hr 10/13/17 10/16/17 10/17/17 05:35 11:43 05:00 WBC 9.5 RBC 2.54 L D Hgb 5.8 L* D Hct 19.0 L D MCV 74.8 L MCH 23.0 L MCHC 30.8 L RDW 20.4 H Plt Count 16 L* D MPV 8.3 Neutrophils % 93.0 H Lymphocytes % 2.6 L D Monocytes % 1.9 L Eosinophils % 2.5 D Basophils % 0.0 PT with INR INR PTT (Actin FS) Puncture Site Left radial ABG pH 7.31 L ABG pCO2 at Pt Temp 54.0 H D ABG pO2 at Pt Temp 171.0 H* ABG HCO3 26.2 H ABG O2 Sat (Measured) 99.2 H ABG O2 Content 12.0 L ABG Base Excess 0.1 Bebo Test Positive O2 Delivery Device Vent Oxygen Flow Rate 100 f02 Vent Rate 14 Mechanical Rate Yes PEEP 5.0 Pressure Support Vent 450 Sodium Potassium Chloride Carbon Dioxide Anion Gap BUN Creatinine Creat Clearance w eGFR Random Glucose Calcium Phosphorus Magnesium Total Bilirubin AST ALT Alkaline Phosphatase Total Protein Albumin Blood Type O POSITIVE Antibody Screen Negative Crossmatch See Detail 10/17/17 10/17/17 10/17/17 05:00 05:00 08:35 WBC RBC Hgb Hct MCV MCH MCHC RDW Plt Count MPV Neutrophils % Lymphocytes % Monocytes % Eosinophils % Basophils % PT with INR 13.30 H INR 1.18 H PTT (Actin FS) 18.4 L Puncture Site ABG pH ABG pCO2 at Pt Temp ABG pO2 at Pt Temp ABG HCO3 ABG O2 Sat (Measured) ABG O2 Content ABG Base Excess Bebo Test O2 Delivery Device Oxygen Flow Rate Vent Rate Mechanical Rate PEEP Pressure Support Vent Sodium 138 Potassium 3.9 Chloride 100 Carbon Dioxide 27 Anion Gap 11 BUN 39 H Creatinine 2.0 H D Creat Clearance w eGFR 35.13 Random Glucose 95 Calcium 8.1 L Phosphorus 4.5 D Magnesium 2.2 Total Bilirubin 1.6 H D AST 35 ALT 34 Alkaline Phosphatase 163 H D Total Protein 4.6 L Albumin 1.4 L Blood Type Antibody Screen Crossmatch See Detail Active Medications Generic Name Dose Route Start Last Admin Trade Name Freq PRN Reason Stop Dose Admin Albuterol/Ipratropium 1 amp 10/16/17 12:00 10/17/17 05:52 Duoneb - NEB 1 amp QIDR [facility] Administration Dexamethasone Sodium Phosphate 4 mg 10/17/17 02:00 10/17/17 09:04 Decadron Injection - IVPUSH 4 mg Q8H-IV [facility] Administration Folic Acid 1 mg 10/09/17 10:00 10/17/17 09:04 Folic Acid - PO Not Given DAILY [facility] Gabapentin 200 mg 10/11/17 22:30 10/17/17 06:46 Neurontin - PO Not Given TID [facility] Hydromorphone HCl 3 mg 10/14/17 00:31 10/16/17 03:00 Dilaudid Injection - IVPB 3 mg Q4H PRN Administration PAIN Nafcillin Sodium 2 gm/ 100 mls @ 100 mls/hr 10/14/17 10:00 10/17/17 09:05 Dextrose IVPB 100 mls/hr Q4H-IV [facility] Administration Protocol Fentanyl 500 mcg/ Dextrose 100 mls @ 5 mls/hr 10/16/17 18:15 10/16/17 19:49 IVPB 30 mls/hr TITR [facility] Administration Protocol 25 MCG/HR Dextrose/Sodium Chloride 1,000 mls @ 83 mls/hr 10/16/17 23:45 D5-1/2ns - IV ASDIR [facility] Levothyroxine Sodium 100 mcg 10/09/17 07:00 10/17/17 06:46 Synthroid - PO Not Given DAILY@0700 [facility] Lidocaine 1 patch 10/09/17 10:00 10/17/17 09:05 Lidoderm Patch - TP 1 patch DAILY [facility] Administration Magnesium Oxide 400 mg 10/08/17 22:00 10/17/17 09:05 Mag-Ox - PO Not Given BID [facility] Midazolam HCl 2 mg 10/16/17 11:57 10/17/17 08:12 Versed - IVPUSH 2 mg Q1H PRN Administration AGITATION Mirtazapine 15 mg 10/08/17 22:00 10/16/17 22:23 Remeron - PO Not Given HS [facility] Miscellaneous 1 each 10/08/17 22:00 10/16/17 22:22 Lidoderm Patch Removal MC 1 each DAILY@2200 [facility] Administration Miscellaneous 1 each 10/12/17 19:32 Duragesic Patch Waste MC PRN PRN PAIN Morphine Sulfate 15 mg 10/12/17 22:00 10/17/17 07:38 Ms Contin - PO Not Given TID [facility] Pantoprazole Sodium 40 mg 10/09/17 10:00 10/17/17 09:06 Protonix - PO Not Given DAILY [facility] Scopolamine HBr 1 patch 10/16/17 12:00 10/16/17 17:21 Transderm-Scop - TD 1 patch Q72H [facility] Administration Microbiology 10/14/17 10:10 Blood - Peripheral Venous Blood Culture - Final Staphylococcus Aureus 10/12/17 21:45 Blood - Peripheral Venous Blood Culture - Final Staphylococcus Aureus 10/11/17 Unknown Blood - Central Line Blood Culture - Final Staphylococcus Aureus 10/12/17 21:25 Blood - Peripheral Venous Blood Culture - Final Staphylococcus Aureus 10/11/17 Unknown Blood - Central Line Blood Culture - Final Staphylococcus Aureus 10/14/17 10:10 Blood - Peripheral Venous Blood Culture - Preliminary Pending Organism 10/11/17 21:00 Urine - Urine Clean Catch Urine Culture - Final NO GROWTH OBTAINED Assessment: 51 year male with PMHx pf COPD and hypothyroidism diagnosed with Metastatic NSCLC (Adenocarcinoma) to brain/bone since 2016 w (s/p gamma knife Rx to the cerebellum), adrenals, pelvis, and spine. Admitted 10/07 with increased back pain d/t spinal mets. Mediport (removed here), now with MSSA bacteremia, and R MCA stroke, intubated (10/16) for increased lethargy and respiratory compromise. Plan: 1. Acute blood loss anemia - Ordered 2uprbc now - Check cbc 2. Severe Thrombocyopenia - Transfuse 2 units platelets - Caution with line placement with plt 16 3. Acute hypoxic resp failure - Maintain MV - Fentanyl gtt for vent synchrony and pain mgmt - Pt is DNR not DNI - CXR unchanged, opacification of R lung 2. MSSA bacteremia - Continue nafcillin - Repeat NGTD - Port o cath removed 10/15 3. Hypotension - Due to anemia and sepsis - Fluids changed to d5 1/2ns - To transfuse blood products 4. Stage 4 adenocarcinoma of lung - Decadron to 4mg IV q8h 5. New CVA, R MCA - Declined MRI 6. LEIDA - Due to sepsis/ hypotension - Cr rising - Fluids and blood as above 7. Hyponatremia - Resolved CODE STATUS : DNR, pronosis guarded Visit type - Emergency Visit Emergency Visit: Yes ED Registration Date: 10/08/17 Care time: The patient presented to the Emergency Department on the above date and was hospitalized for further evaluation of their emergent condition. - New Patient This patient is new to me today: No - Critical Care Critical Care patient: No
[2017-10-17] MEDS: FENTANYL INJECTION 500 MCG in DEXTROSE 5%-WATER - 90 ML IVPB SCH ×3 (10:04→19:30)
--- NOTE | 2017-10-17 10:09 | PN ---
Progress Note (short form) - Note Progress Note: PULMONARY/CCM Pt seen and examined in the ICU. Intubated yesterday, CXR still with opacification of right. No fevers recorded. Last Vital Signs Temp Pulse Resp BP Pulse Ox 99.0 F 104 H 14 88/60 86 L 10/17/17 06:00 10/17/17 08:34 10/17/17 08:34 10/17/17 08:34 10/17/17 08:26 Intake & Output 10/14/17 10/15/17 10/16/17 10/17/17 23:59 23:59 23:59 23:59 Intake Total 1979.5 1935 3282.8 725 Output Total 1500 605 200 300 Balance 479.5 1330 3082.8 425 Weight 73.119 kg 71.668 kg 72.8 kg 77.167 kg Gen: intubated, sedated Heart: RRR Lung: absent breath sounds on right Abd: soft, nontender Ext: + edema CBC, BMP 10/17/17 05:00 10/17/17 05:00 Active Medications Albuterol/Ipratropium (Duoneb -) 1 amp NEB QIDR [facility] Last Admin: 10/17/17 05:52 Dose: 1 amp Dexamethasone Sodium Phosphate (Decadron Injection -) 4 mg IVPUSH Q8H-IV [facility] Last Admin: 10/17/17 09:04 Dose: 4 mg Folic Acid (Folic Acid -) 1 mg PO DAILY [facility] Last Admin: 10/17/17 09:04 Dose: Not Given Gabapentin (Neurontin -) 200 mg PO TID [facility] Last Admin: 10/17/17 06:46 Dose: Not Given Hydromorphone HCl (Dilaudid Injection -) 3 mg IVPB Q4H PRN PRN Reason: PAIN Last Admin: 10/16/17 03:00 Dose: 3 mg Nafcillin Sodium 2 gm/ (Dextrose) 100 mls @ 100 mls/hr IVPB Q4H-IV [facility] PRN Reason: Protocol Last Admin: 10/17/17 09:05 Dose: 100 mls/hr Fentanyl 500 mcg/ Dextrose 100 mls @ 5 mls/hr IVPB TITR [facility]; 25 MCG/HR PRN Reason: Protocol Last Admin: 10/17/17 10:04 Dose: 20 mls/hr Dextrose/Sodium Chloride (D5-1/2ns -) 1,000 mls @ 83 mls/hr IV [facility]IR [facility] Levothyroxine Sodium (Synthroid -) 100 mcg PO DAILY@0700 [facility] Last Admin: 10/17/17 06:46 Dose: Not Given Lidocaine (Lidoderm Patch -) 1 patch TP DAILY [facility] Last Admin: 10/17/17 09:05 Dose: 1 patch Magnesium Oxide (Mag-Ox -) 400 mg PO BID [facility] Last Admin: 10/17/17 09:05 Dose: Not Given Midazolam HCl (Versed -) 2 mg IVPUSH Q1H PRN PRN Reason: AGITATION Last Admin: 10/17/17 08:12 Dose: 2 mg Mirtazapine (Remeron -) 15 mg PO HS [facility] Last Admin: 10/16/17 22:23 Dose: Not Given Miscellaneous (Lidoderm Patch Removal) 1 each MC DAILY@2200 [facility] Last Admin: 10/16/17 22:22 Dose: 1 each Miscellaneous (Duragesic Patch Waste) 1 each [facility] PRN PRN PRN Reason: PAIN Morphine Sulfate (Ms Contin -) 15 mg PO TID [facility] Last Admin: 10/17/17 07:38 Dose: Not Given Pantoprazole Sodium (Protonix -) 40 mg PO DAILY [facility] Last Admin: 10/17/17 09:06 Dose: Not Given Scopolamine HBr (Transderm-Scop -) 1 patch TD Q72H [facility] Last Admin: 10/16/17 17:21 Dose: 1 patch A/P Acute Hypoxic Respiratory Failure Acute CVA vs underlying mets Metastatic NSCLC (Adenocarcinoma) to brain/bone MSSA Bacteremia Acute Kidney Injury Right Atelectasis Thrombocytopenia Anemia Hypothyroidism - transfuse PRBC - monitor H/H - continue antibiotics - f/u pending cultures - IVF - monitor urine output, creatinine - continue ICU monitoring - poor overall prognosis, pt DNR critical care time spent in reviewing chart, evaluating patient and formulating plan 35 min
[2017-10-17 11:17] LABS: ARTERIAL BLOOD GAS PCO2 49.5 mmHg (35-45); ARTERIAL BLOOD GAS pH 7.32 (7.35-7.45)
[2017-10-17 11:18] LABS: ARTERIAL BLD GAS O2 SATURATION 93.7 % (90-98.9)
[2017-10-17 11:20] LABS: ALLENS TEST POSITIVE
[2017-10-17 11:22] LABS: ARTERIAL BLOOD GAS BASE EXCESS -0.7 meq/l (-2-2)
[2017-10-17] MEDS: DEXTROSE 5%-0.45% SALINE 1,000 ML IV SCH ×3 (13:41→23:55)
--- NOTE | 2017-10-17 20:28 | PN ---
Progress Note (short form) - Note Progress Note: seen in icu intubated on vent low bp Current Medications Albuterol/Ipratropium (Duoneb -) 1 amp NEB QIDR [facility] Last Admin: 10/17/17 18:20 Dose: 1 amp Dexamethasone Sodium Phosphate (Decadron Injection -) 4 mg IVPUSH Q8H-IV [facility] Last Admin: 10/17/17 17:03 Dose: 4 mg Folic Acid (Folic Acid -) 1 mg PO DAILY [facility] Last Admin: 10/17/17 09:04 Dose: Not Given Gabapentin (Neurontin -) 200 mg PO TID [facility] Last Admin: 10/17/17 13:44 Dose: Not Given Hydromorphone HCl (Dilaudid Injection -) 3 mg IVPB Q4H PRN PRN Reason: PAIN Last Admin: 10/16/17 03:00 Dose: 3 mg Nafcillin Sodium 2 gm/ (Dextrose) 100 mls @ 100 mls/hr IVPB Q4H-IV [facility] PRN Reason: Protocol Last Admin: 10/17/17 17:04 Dose: 100 mls/hr Fentanyl 500 mcg/ Dextrose 100 mls @ 5 mls/hr IVPB TITR [facility]; 25 MCG/HR PRN Reason: Protocol Last Admin: 10/17/17 16:27 Dose: 20 mls/hr Dextrose/Sodium Chloride (D5-1/2ns -) 1,000 mls @ 83 mls/hr IV ASDIR [facility] Last Admin: 10/17/17 13:41 Dose: 83 mls/hr Levothyroxine Sodium (Synthroid -) 100 mcg PO DAILY@0700 [facility] Last Admin: 10/17/17 06:46 Dose: Not Given Lidocaine (Lidoderm Patch -) 1 patch TP DAILY [facility] Last Admin: 10/17/17 09:05 Dose: 1 patch Magnesium Oxide (Mag-Ox -) 400 mg PO BID [facility] Last Admin: 10/17/17 09:05 Dose: Not Given Midazolam HCl (Versed -) 2 mg IVPUSH Q1H PRN PRN Reason: AGITATION Last Admin: 10/17/17 16:25 Dose: 2 mg Mirtazapine (Remeron -) 15 mg PO HS [facility] Last Admin: 10/16/17 22:23 Dose: Not Given Miscellaneous (Lidoderm Patch Removal) 1 each MC DAILY@2200 [facility] Last Admin: 10/16/17 22:22 Dose: 1 each Miscellaneous (Duragesic Patch Waste) 1 each MC PRN PRN PRN Reason: PAIN Morphine Sulfate (Ms Contin -) 15 mg PO TID [facility] Last Admin: 10/17/17 13:41 Dose: Not Given Pantoprazole Sodium (Protonix -) 40 mg PO DAILY [facility] Last Admin: 10/17/17 09:06 Dose: Not Given Scopolamine HBr (Transderm-Scop -) 1 patch TD Q72H [facility] Last Admin: 10/16/17 17:21 Dose: 1 patch Last Vital Signs Temp Pulse Resp BP Pulse Ox 99 F 72 17 102/57 60 L 10/17/17 18:14 10/17/17 18:14 10/17/17 19:25 10/17/17 18:14 10/17/17 19:39 Intake & Output 10/14/17 10/15/17 10/16/17 10/17/17 23:59 23:59 23:59 23:59 Intake Total 1979.5 1935 3282.8 3495 Output Total 1500 605 200 800 Balance 479.5 1330 3082.8 2695 Weight 161 lb 3.2 oz 158 lb 160 lb 7.944 oz 170 lb 2 oz unresponsive/sedated vital signs lungs vented abd soft ext no edema CBC, BMP 10/17/17 05:00 10/17/17 05:00 CBC, BMP 10/16/17 05:15 10/16/17 05:15 IMP- MOF/ LEIDA/hypotensive Prerenal azotemia nonoliguric but urine output decreasing large positive balance severe anemia Plan prognosis poor monitor urine output
--- NOTE | 2017-10-17 21:28 | PN ---
Progress Note, Physician History of Present Illness: Port removed, sedated and intubated for acute hypoxic respiratory failure. - Current Medication List Current Medications: Active Medications Albuterol/Ipratropium (Duoneb -) 1 amp NEB QIDR [facility] Last Admin: 10/17/17 18:20 Dose: 1 amp Dexamethasone Sodium Phosphate (Decadron Injection -) 4 mg IVPUSH Q8H-IV [facility] Last Admin: 10/17/17 17:03 Dose: 4 mg Folic Acid (Folic Acid -) 1 mg PO DAILY [facility] Last Admin: 10/17/17 09:04 Dose: Not Given Gabapentin (Neurontin -) 200 mg PO TID [facility] Last Admin: 10/17/17 13:44 Dose: Not Given Hydromorphone HCl (Dilaudid Injection -) 3 mg IVPB Q4H PRN PRN Reason: PAIN Last Admin: 10/16/17 03:00 Dose: 3 mg Nafcillin Sodium 2 gm/ (Dextrose) 100 mls @ 100 mls/hr IVPB Q4H-IV [facility] PRN Reason: Protocol Last Admin: 10/17/17 17:04 Dose: 100 mls/hr Fentanyl 500 mcg/ Dextrose 100 mls @ 5 mls/hr IVPB TITR [facility]; 25 MCG/HR PRN Reason: Protocol Last Admin: 10/17/17 16:27 Dose: 20 mls/hr Dextrose/Sodium Chloride (D5-1/2ns -) 1,000 mls @ 83 mls/hr IV ASDIR [facility] Last Admin: 10/17/17 13:41 Dose: 83 mls/hr Levothyroxine Sodium (Synthroid -) 100 mcg PO DAILY@0700 [facility] Last Admin: 10/17/17 06:46 Dose: Not Given Lidocaine (Lidoderm Patch -) 1 patch TP DAILY [facility] Last Admin: 10/17/17 09:05 Dose: 1 patch Magnesium Oxide (Mag-Ox -) 400 mg PO BID [facility] Last Admin: 10/17/17 09:05 Dose: Not Given Midazolam HCl (Versed -) 2 mg IVPUSH Q1H PRN PRN Reason: AGITATION Last Admin: 10/17/17 16:25 Dose: 2 mg Mirtazapine (Remeron -) 15 mg PO HS [facility] Last Admin: 10/16/17 22:23 Dose: Not Given Miscellaneous (Lidoderm Patch Removal) 1 each MC DAILY@2200 [facility] Last Admin: 10/16/17 22:22 Dose: 1 each Miscellaneous (Duragesic Patch Waste) 1 each [facility] PRN PRN PRN Reason: PAIN Morphine Sulfate (Ms Contin -) 15 mg PO TID [facility] Last Admin: 10/17/17 13:41 Dose: Not Given Pantoprazole Sodium (Protonix -) 40 mg PO DAILY [facility] Last Admin: 10/17/17 09:06 Dose: Not Given Scopolamine HBr (Transderm-Scop -) 1 patch TD Q72H [facility] Last Admin: 10/16/17 17:21 Dose: 1 patch - Objective Vital Signs: Vital Signs Temperature 99 F 10/17/17 18:14 Pulse Rate 72 10/17/17 18:14 Respiratory Rate 16 10/17/17 21:24 Blood Pressure 102/57 10/17/17 18:14 O2 Sat by Pulse Oximetry (%) 60 L 10/17/17 19:39 Constitutional: Yes: No Distress, Calm Cardiovascular: Yes: Regular Rate and Rhythm Respiratory: Yes: Intubated, Mechanically Ventilated, Rhonchi Gastrointestinal: Yes: Soft, Hypoactive Bowel Sounds Edema: No Labs: CBC, BMP 10/17/17 05:00 10/17/17 05:00 INR, PTT INR 1.18 (0.82-1.09) H 10/17/17 05:00 Fibrinogen 631.0 mg/dL (238-498) H 10/13/17 16:00 - ....Imaging Chest X-ray: Report Reviewed (Right opacified hemithorax) Problem List - Problems (1) Gram-positive bacteremia Code(s): R78.81 - BACTEREMIA (2) Metastatic lung cancer (metastasis from lung to other site) Code(s): C34.90 - MALIGNANT NEOPLASM OF UNSP PART OF UNSP BRONCHUS OR LUNG (3) Acquired pancytopenia Code(s): D61.818 - OTHER PANCYTOPENIA (4) Anemia Code(s): D64.9 - ANEMIA, UNSPECIFIED Qualifiers: Bone marrow failure anemia type: pancytopenia, antineoplastic chemotherapy- induced (5) Atelectasis Code(s): J98.11 - ATELECTASIS (6) Cerebrovascular disease in cancer patient Code(s): I67.9 - CEREBROVASCULAR DISEASE, UNSPECIFIED; C80.1 - MALIGNANT ( PRIMARY) NEOPLASM, UNSPECIFIED (7) Hypothyroidism Code(s): E03.9 - HYPOTHYROIDISM, UNSPECIFIED Qualifiers: Hypothyroidism type: unspecified Qualified Code(s): E03.9 - Hypothyroidism , unspecified (8) Metastatic adenocarcinoma Code(s): C79.9 - SECONDARY MALIGNANT NEOPLASM OF UNSPECIFIED SITE (9) Obstructive pneumonia Code(s): J18.9 - PNEUMONIA, UNSPECIFIED ORGANISM (10) Primary lung adenocarcinoma Code(s): C34.90 - MALIGNANT NEOPLASM OF UNSP PART OF UNSP BRONCHUS OR LUNG Qualifiers: Laterality: unspecified laterality Qualified Code(s): C34.90 - Malignant neoplasm of unspecified part of unspecified bronchus or lung (11) Thrombocytopenia Code(s): D69.6 - THROMBOCYTOPENIA, UNSPECIFIED (12) Line sepsis Code(s): T82.7XXA - INFECT/INFLM REACT D/T OTH CARDI/VASC DEV/IMPLNT/GRFT, INIT Qualifiers: Encounter type: subsequent encounter Qualified Code(s): T82.7XXD - Infection and inflammatory reaction due to other cardiac and vascular devices, implants and grafts, subsequent encounter (13) Acute kidney injury Code(s): N17.9 - ACUTE KIDNEY FAILURE, UNSPECIFIED Assessment/Plan 1. 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 Persistent MSSA bacteremia, line sepsis post port removal 4. Hypothyroidism 5. Anemia, Thrombocytopenia 6. Right lung opacification - ATX, vs post-obstruction PNA vs large airway mucous plugging 7. Acute kidney injury 8. Acute hypoxic respiratory failure P:1. Declined brain MRI, TTE poor quality, not ideal candidate for DANNI given extent of underlying disease and co-morbid conditions 2. Monitor telemetry r/o PAF 3. Nafcillin per ID, f/u C&S for clearance post port removal 4. Hydration, transfuse for Hgb<8.0, observe monitor renal recovery 5. Chest PT, O2 to keep saO2>90%, BD as needed 6. Resume and complete T spine RT when medically feasible 7. Vent support per ICU, transfuse pRBC and Plt
[2017-10-17] MEDS: LIDOCAINE PATCH REMOVAL MC SCH (22:00)
[2017-10-17] MEDS: MIRTAZAPINE 15 MG TABLET (FP) PO SCH (22:00)
[2017-10-18] MEDS: ALBUTEROL SO4 2.5/IPRATROPIUM 0.5 INH SOL 3 ML VIAL.NEB. NEB SCH ×4 (00:17→17:00)
[2017-10-18] MEDS ORDERED: fentaNYL CITRATE 250 MCG/5 ML VIAL ONE ×3 (00:22→19:07)
[2017-10-18] MEDS: DEXAMETHASONE SOD PHOSPHATE 4 MG/1 ML VIAL IVPUSH SCH ×3 (02:00→17:47)
[2017-10-18] MEDS: NAFCILLIN - 2 GM in DEXTROSE 5%-WATER - 100 ML IVPB SCH ×6 (02:00→21:22)
[2017-10-18] MEDS ORDERED: PT OWN MED DRAWER 7, Y5N ONE ×4 (03:14→21:10)
[2017-10-18 05:52] LABS: BASO % 0.1 % (0-2.0); EOS % 0.3 % (0-4.5); HEMATOCRIT 30.9 % (35.4-49); HEMOGLOBIN 9.8 GM/dL (11.7-16.9); LYMPH % 1.1 % (8-40); MCH 24.5 pg (25.7-33.7); MCHC 31.7 g/dl (32.0-35.9); MEAN CELL VOLUME 77.3 fl (80-96); MEAN PLT VOLUME 8.6 fl (7.5-11.1); MONO % 1.8 % (3.8-10.2); NEUT % 96.7 % (42.8-82.8); RDW 20.5 % (11.9-15.9); WHITE BLOOD COUNT 13.2 K/mm3 (4.0-10.0)
[2017-10-18] MEDS: GABAPENTIN 100 MG CAPSULE (FP) PO SCH ×3 (05:55→21:22)
[2017-10-18] MEDS: morphine SO4 SUSTAINED ACTING 15 MG TABLET.SA PO SCH ×3 (05:55→22:00)
[2017-10-18 06:17] LABS: ALBUMIN 1.6 g/dl (3.4-5.0); ALK PHOS 150 U/L (45-117); ANION GAP 12 (8-16); BILIRUBIN,TOTAL 1.3 mg/dL (0.2-1.0); BLOOD UREA NITROGEN 40 mg/dL (7-18); CALCIUM 8.1 mg/dL (8.5-10.1); CHLORIDE 101 mmol/L (98-107); CO2 24 mmol/L (21-32); CREATININE 2.4 mg/dL (0.7-1.3); GLUCOSE,RANDOM 126 mg/dL (74-106); PHOSPHOROUS 4.6 mg/dL (2.5-4.9); POTASSIUM 3.3 mmol/L (3.5-5.1); SGOT/AST 36 U/L (15-37); SGPT/ALT 26 U/L (12-78); SODIUM 137 mmol/L (136-145); TOT PROT 4.9 g/dl (6.4-8.2)
[2017-10-18] MEDS: LEVOTHYROXINE NA 100 MCG TABLET (FP) PO SCH (06:22)
[2017-10-18 06:23] LABS: PLATELET COUNT 27 K/MM3 (134-434)
[2017-10-18 08:05] LABS: ARTERIAL BLD GAS O2 SATURATION 94.6 % (90-98.9); ARTERIAL BLOOD GAS BASE EXCESS -2.4 meq/l (-2-2); ARTERIAL BLOOD GAS PCO2 42.6 mmHg (35-45); ARTERIAL BLOOD GAS PO2 74.8 mmHg (80-100); ARTERIAL BLOOD GAS pH 7.34 (7.35-7.45)
[2017-10-18 08:24] LABS: ALLENS TEST POSITIVE
[2017-10-18] MEDS: MIDAZOLAM HCL 2 MG/2 ML SINGLE DOSE VIAL IVPUSH PRN (09:28)
[2017-10-18] MEDS: FOLIC ACID 1 MG TABLET (FP) PO SCH (09:33)
[2017-10-18] MEDS: LIDOCAINE 5% TOPICAL PATCH TP SCH (09:33)
[2017-10-18] MEDS: MAGNESIUM OXIDE 400 MG TABLET (FP) PO SCH ×3 (09:34→21:21)
--- NOTE | 2017-10-18 09:37 | PN ---
Progress Note (short form) - Note Progress Note: PULMONARY/CCM Pt seen and examined in the ICU. Remains intubated, sedated. Transfused 2 units PRBC, platelets each yesterday. Bloody oral secretions. No fevers recorded. Last blood cultures negative to date. Vented on volume assist control with 60% FiO2, PEEP 10. Last Vital Signs Temp Pulse Resp BP Pulse Ox 98.7 F 96 H 18 90/60 93 L 10/18/17 06:00 10/18/17 08:00 10/18/17 08:27 10/18/17 08:00 10/18/17 08:36 Intake & Output 10/15/17 10/16/17 10/17/17 10/18/17 23:59 23:59 23:59 23:59 Intake Total 1935 3282.8 3495 1179 Output Total 605 200 900 Balance 1330 3082.8 2595 1179 Weight 71.668 kg 72.8 kg 77.167 kg 79.968 kg Gen: intubated, sedated, tachypneic Heart: RRR Lung: absent breath sounds on right Abd: soft, nontender Ext: + edema CBC, BMP 10/18/17 05:10 10/18/17 05:10 Active Medications Albuterol/Ipratropium (Duoneb -) 1 amp NEB QIDR [facility] Last Admin: 10/18/17 06:00 Dose: 1 amp Dexamethasone Sodium Phosphate (Decadron Injection -) 4 mg IVPUSH Q8H-IV [facility] Last Admin: 10/18/17 02:00 Dose: 4 mg Folic Acid (Folic Acid -) 1 mg PO DAILY [facility] Last Admin: 10/17/17 09:04 Dose: Not Given Gabapentin (Neurontin -) 200 mg PO TID [facility] Last Admin: 10/18/17 05:55 Dose: Not Given Hydromorphone HCl (Dilaudid Injection -) 3 mg IVPB Q4H PRN PRN Reason: PAIN Last Admin: 10/16/17 03:00 Dose: 3 mg Nafcillin Sodium 2 gm/ (Dextrose) 100 mls @ 100 mls/hr IVPB Q4H-IV [facility] PRN Reason: Protocol Last Admin: 10/18/17 05:53 Dose: 100 mls/hr Fentanyl 500 mcg/ Dextrose 100 mls @ 5 mls/hr IVPB TITR [facility]; 25 MCG/HR PRN Reason: Protocol Last Admin: 10/17/17 19:30 Dose: 5 mls/hr Dextrose/Sodium Chloride (D5-1/2ns -) 1,000 mls @ 83 mls/hr IV ASDIR [facility] Last Admin: 10/17/17 23:55 Dose: 83 mls/hr Levothyroxine Sodium (Synthroid -) 100 mcg PO DAILY@0700 [facility] Last Admin: 10/18/17 06:22 Dose: Not Given Lidocaine (Lidoderm Patch -) 1 patch TP DAILY [facility] Last Admin: 10/17/17 09:05 Dose: 1 patch Magnesium Oxide (Mag-Ox -) 400 mg PO BID [facility] Last Admin: 10/17/17 22:00 Dose: Not Given Midazolam HCl (Versed -) 2 mg IVPUSH Q1H PRN PRN Reason: AGITATION Last Admin: 10/18/17 09:28 Dose: 2 mg Mirtazapine (Remeron -) 15 mg PO HS [facility] Last Admin: 10/17/17 22:00 Dose: 15 mg Miscellaneous (Lidoderm Patch Removal) 1 each MC DAILY@2200 [facility] Last Admin: 10/17/17 22:00 Dose: 1 each Miscellaneous (Duragesic Patch Waste) 1 each MC PRN PRN PRN Reason: PAIN Morphine Sulfate (Ms Contin -) 15 mg PO TID [facility] Last Admin: 10/18/17 05:55 Dose: Not Given Pantoprazole Sodium (Protonix -) 40 mg PO DAILY [facility] Last Admin: 10/17/17 09:06 Dose: Not Given Scopolamine HBr (Transderm-Scop -) 1 patch TD Q72H [facility] Last Admin: 10/16/17 17:21 Dose: 1 patch A/P Acute Hypoxic Respiratory Failure Acute CVA vs underlying mets Metastatic NSCLC (Adenocarcinoma) to brain/bone MSSA Bacteremia Acute Kidney Injury Right Atelectasis Thrombocytopenia Anemia Hypothyroidism - transfuse platelets for oral bleeding - monitor CBC - continue antibiotics - f/u pending cultures - IVF - replete lytes - monitor urine output, creatinine - continue ICU monitoring - poor overall prognosis, continue discussions regarding goals of care, pt DNR critical care time spent in reviewing chart, evaluating patient and formulating plan 35 min
[2017-10-18] MEDS ORDERED: POTASSIUM CHLORIDE ORAL LIQUID 20 MEQ/15 ML PO ONE (10:00)
--- NOTE | 2017-10-18 10:43 | PN ---
Progress Note (short form) - Note Progress Note: sedated, intubated remains on nafcillin for MSSA bacteremia Vital Signs Period Temp Pulse Resp BP Sys/Brandon Pulse Ox Last 24 Hr 0 F-99.2 F 66-112 16-24 79-102/52-64 60-100 cor-rrr lungs decreased bs on the right abd soft,nt ext arms with ecchymoses CBC, BMP 10/18/17 05:10 10/18/17 05:10 Microbiology 10/16/17 08:48 Blood - Peripheral Venous Blood Culture - Preliminary NO GROWTH OBTAINED AFTER 48 HOURS, INCUBATION TO CONTINUE FOR 3 DAYS. 10/16/17 10:20 Blood - Peripheral Venous Blood Culture - Preliminary NO GROWTH OBTAINED AFTER 48 HOURS, INCUBATION TO CONTINUE FOR 3 DAYS. 10/14/17 10:10 Blood - Peripheral Venous Blood Culture - Final Staphylococcus Aureus 10/12/17 21:45 Blood - Peripheral Venous Blood Culture - Final Staphylococcus Aureus 10/11/17 Unknown Blood - Central Line Blood Culture - Final Staphylococcus Aureus 10/12/17 21:25 Blood - Peripheral Venous Blood Culture - Final Staphylococcus Aureus 10/11/17 Unknown Blood - Central Line Blood Culture - Final Staphylococcus Aureus 10/14/17 10:10 Blood - Peripheral Venous Blood Culture - Preliminary Pending Organism 10/11/17 21:00 Urine - Urine Clean Catch Urine Culture - Final NO GROWTH OBTAINED a/p MSSA bacteremia- sepsis secondary to MSSA bacteremia port removed 10/15 respiratory failure lung cancer anemia/thrombocytopenia LEIDA continue nafcillin repeat blood cultures are negative overall prognosis is poor
[2017-10-18] MEDS: PANTOPRAZOLE 40 MG TABLET (FP) PO SCH (10:53)
[2017-10-18] MEDS: FENTANYL INJECTION 500 MCG in DEXTROSE 5%-WATER - 90 ML IVPB SCH ×2 (11:10→21:21)
--- NOTE | 2017-10-18 11:20 | PN ---
Progress Note (short form) - Note Progress Note: chart reviewed in detail. all the events noted. Pt seen and examined All the consultants notes reviewed ROS unobtainable due to pt presently intubated. O/E: General: Intubated sedated on fentanyl/Versed Neuro: not responsive Lungs: Coarse Cor: rrr Abdomen: BS+, slightly distended Extremities: No CCE. Last Vital Signs Temp Pulse Resp BP Pulse Ox 98.7 F 94 H 18 82/56 97 10/18/17 06:00 10/18/17 10:00 10/18/17 10:00 10/18/17 10:00 10/18/17 09:25 CBC, BMP 10/18/17 05:10 10/18/17 05:10 Current Medications Generic Name Dose Route Start Last Admin Trade Name Freq PRN Reason Stop Dose Admin Albuterol/Ipratropium 1 amp 10/16/17 12:00 10/18/17 06:00 Duoneb - NEB 1 amp QIDR [facility] Administration Dexamethasone Sodium Phosphate 4 mg 10/17/17 02:00 10/18/17 09:33 Decadron Injection - IVPUSH 4 mg Q8H-IV [facility] Administration Folic Acid 1 mg 10/09/17 10:00 10/18/17 09:33 Folic Acid - PO Not Given DAILY [facility] Gabapentin 200 mg 10/11/17 22:30 10/18/17 05:55 Neurontin - PO Not Given TID [facility] Hydromorphone HCl 3 mg 10/14/17 00:31 10/16/17 03:00 Dilaudid Injection - IVPB 3 mg Q4H PRN Administration PAIN Nafcillin Sodium 2 gm/ 100 mls @ 100 mls/hr 10/14/17 10:00 10/18/17 10:12 Dextrose IVPB 100 mls/hr Q4H-IV [facility] Administration Protocol Fentanyl 500 mcg/ Dextrose 100 mls @ 5 mls/hr 10/16/17 18:15 10/18/17 11:10 IVPB 15 mls/hr TITR [facility] Administration Protocol 25 MCG/HR Dextrose/Sodium Chloride 1,000 mls @ 83 mls/hr 10/16/17 23:45 10/17/17 23:55 D5-1/2ns - IV 83 mls/hr ASDIR [facility] Administration Levothyroxine Sodium 100 mcg 10/09/17 07:00 10/18/17 06:22 Synthroid - PO Not Given DAILY@0700 [facility] Lidocaine 1 patch 10/09/17 10:00 10/18/17 09:33 Lidoderm Patch - TP 1 patch DAILY [facility] Administration Magnesium Oxide 400 mg 10/08/17 22:00 10/18/17 10:54 Mag-Ox - PO 400 mg BID [facility] Administration Midazolam HCl 2 mg 10/16/17 11:57 10/18/17 09:28 Versed - IVPUSH 2 mg Q1H PRN Administration AGITATION Mirtazapine 15 mg 10/08/17 22:00 10/17/17 22:00 Remeron - PO 15 mg HS [facility] Administration Miscellaneous 1 each 10/08/17 22:00 10/17/17 22:00 Lidoderm Patch Removal MC 1 each DAILY@2200 [facility] Administration Miscellaneous 1 each 10/12/17 19:32 Duragesic Patch Waste MC PRN PRN PAIN Morphine Sulfate 15 mg 10/12/17 22:00 10/18/17 05:55 Ms Contin - PO Not Given TID [facility] Pantoprazole Sodium 40 mg 10/09/17 10:00 10/18/17 10:53 Protonix - PO 40 mg DAILY [facility] Administration Scopolamine HBr 1 patch 10/16/17 12:00 10/16/17 17:21 Transderm-Scop - TD 1 patch Q72H [facility] Administration is with metastatic adeno ca of the lung, mets to spinal cord, [employer] admitted for back pain and thrombocytopenia, course complicated by MSSA bacteremia, LEIDA and a CVA , Presently Intubated for respiratory failure. will need to continue supportive care, abx, transfusions (PRBC/Platelets) assess for weaning as possible appreciate ICU level of care thrombocytopenia likely from metastases/infection/acute illness, no DIC noted. will need supportive transfusions. Will aim at around 50K, if bleeding DNR d.w FELIPE
--- NOTE | 2017-10-18 15:36 | PN ---
Progress Note, Physician History of Present Illness: Port removed, sedated and intubated for acute hypoxic respiratory failure. - Current Medication List Current Medications: Active Medications Albuterol/Ipratropium (Duoneb -) 1 amp NEB QIDR [facility] Last Admin: 10/18/17 11:05 Dose: 1 amp Dexamethasone Sodium Phosphate (Decadron Injection -) 4 mg IVPUSH Q8H-IV [facility] Last Admin: 10/18/17 09:33 Dose: 4 mg Folic Acid (Folic Acid -) 1 mg PO DAILY [facility] Last Admin: 10/18/17 09:33 Dose: Not Given Gabapentin (Neurontin -) 200 mg PO TID [facility] Last Admin: 10/18/17 14:34 Dose: Not Given Hydromorphone HCl (Dilaudid Injection -) 3 mg IVPB Q4H PRN PRN Reason: PAIN Last Admin: 10/16/17 03:00 Dose: 3 mg Nafcillin Sodium 2 gm/ (Dextrose) 100 mls @ 100 mls/hr IVPB Q4H-IV [facility] PRN Reason: Protocol Last Admin: 10/18/17 14:34 Dose: 100 mls/hr Fentanyl 500 mcg/ Dextrose 100 mls @ 5 mls/hr IVPB TITR [facility]; 25 MCG/HR PRN Reason: Protocol Last Admin: 10/18/17 11:10 Dose: 15 mls/hr Dextrose/Sodium Chloride (D5-1/2ns -) 1,000 mls @ 83 mls/hr IV ASDIR [facility] Last Admin: 10/17/17 23:55 Dose: 83 mls/hr Levothyroxine Sodium (Synthroid -) 100 mcg PO DAILY@0700 [facility] Last Admin: 10/18/17 06:22 Dose: Not Given Lidocaine (Lidoderm Patch -) 1 patch TP DAILY [facility] Last Admin: 10/18/17 09:33 Dose: 1 patch Magnesium Oxide (Mag-Ox -) 400 mg PO BID [facility] Last Admin: 10/18/17 10:54 Dose: 400 mg Midazolam HCl (Versed -) 2 mg IVPUSH Q1H PRN PRN Reason: AGITATION Last Admin: 10/18/17 09:28 Dose: 2 mg Mirtazapine (Remeron -) 15 mg PO HS [facility] Last Admin: 10/17/17 22:00 Dose: 15 mg Miscellaneous (Lidoderm Patch Removal) 1 each MC DAILY@2200 [facility] Last Admin: 10/17/17 22:00 Dose: 1 each Miscellaneous (Duragesic Patch Waste) 1 each MC PRN PRN PRN Reason: PAIN Morphine Sulfate (Ms Contin -) 15 mg PO TID [facility] Last Admin: 10/18/17 05:55 Dose: Not Given Pantoprazole Sodium (Protonix -) 40 mg PO DAILY [facility] Last Admin: 10/18/17 10:53 Dose: 40 mg Scopolamine HBr (Transderm-Scop -) 1 patch TD Q72H [facility] Last Admin: 10/16/17 17:21 Dose: 1 patch - Objective Vital Signs: Vital Signs Temperature 98.7 F 10/18/17 06:00 Pulse Rate 94 H 10/18/17 14:00 Respiratory Rate 22 10/18/17 14:24 Blood Pressure 87/62 10/18/17 14:00 O2 Sat by Pulse Oximetry (%) 97 10/18/17 09:25 Constitutional: Yes: No Distress, Calm, Thin Neck: Yes: Supple Cardiovascular: Yes: Regular Rate and Rhythm, Tachycardia Respiratory: Yes: Intubated, Mechanically Ventilated, Rhonchi Gastrointestinal: Yes: Soft, Hypoactive Bowel Sounds Edema: No Labs: CBC, BMP 10/18/17 05:10 10/18/17 05:10 INR, PTT INR 1.18 (0.82-1.09) H 10/17/17 05:00 Fibrinogen 631.0 mg/dL (238-498) H 10/13/17 16:00 - ....Imaging Chest X-ray: Report Reviewed (Worsening CXR) Problem List - Problems (1) Gram-positive bacteremia Code(s): R78.81 - BACTEREMIA (2) Metastatic lung cancer (metastasis from lung to other site) Code(s): C34.90 - MALIGNANT NEOPLASM OF UNSP PART OF UNSP BRONCHUS OR LUNG (3) Acquired pancytopenia Code(s): D61.818 - OTHER PANCYTOPENIA (4) Anemia Code(s): D64.9 - ANEMIA, UNSPECIFIED Qualifiers: Bone marrow failure anemia type: pancytopenia, antineoplastic chemotherapy- induced Qualified Code(s): D61.810 - Antineoplastic chemotherapy induced pancytopenia; T45.1X5A - Adverse effect of antineoplastic and immunosuppressive drugs, initial encounter; T45.1X5A - Adverse effect of antineoplastic and immunosuppressive drugs, initial encounter (5) Atelectasis Code(s): J98.11 - ATELECTASIS (6) Cerebrovascular disease in cancer patient Code(s): I67.9 - CEREBROVASCULAR DISEASE, UNSPECIFIED; C80.1 - MALIGNANT ( PRIMARY) NEOPLASM, UNSPECIFIED (7) Hypothyroidism Code(s): E03.9 - HYPOTHYROIDISM, UNSPECIFIED Qualifiers: Hypothyroidism type: unspecified Qualified Code(s): E03.9 - Hypothyroidism , unspecified (8) Metastatic adenocarcinoma Code(s): C79.9 - SECONDARY MALIGNANT NEOPLASM OF UNSPECIFIED SITE (9) Obstructive pneumonia Code(s): J18.9 - PNEUMONIA, UNSPECIFIED ORGANISM (10) Primary lung adenocarcinoma Code(s): C34.90 - MALIGNANT NEOPLASM OF UNSP PART OF UNSP BRONCHUS OR LUNG Qualifiers: Laterality: unspecified laterality Qualified Code(s): C34.90 - Malignant neoplasm of unspecified part of unspecified bronchus or lung (11) Thrombocytopenia Code(s): D69.6 - THROMBOCYTOPENIA, UNSPECIFIED (12) Line sepsis Code(s): T82.7XXA - INFECT/INFLM REACT D/T OTH CARDI/VASC DEV/IMPLNT/GRFT, INIT Qualifiers: Encounter type: subsequent encounter Qualified Code(s): T82.7XXD - Infection and inflammatory reaction due to other cardiac and vascular devices, implants and grafts, subsequent encounter (13) Acute kidney injury Code(s): N17.9 - ACUTE KIDNEY FAILURE, UNSPECIFIED Assessment/Plan 1. 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 Persistent MSSA bacteremia, line sepsis post port removal 4. Hypothyroidism 5. Anemia, Thrombocytopenia 6. Right lung opacification - ATX, vs post-obstruction PNA vs large airway mucous plugging 7. Acute kidney injury 8. Acute hypoxic respiratory failure P:1. TTE poor quality, not ideal candidate for DANNI given extent of underlying disease and co-morbid conditions 2. Monitor telemetry r/o PAF 3. Nafcillin per ID, f/u C&S for clearance post port removal 4. Hydration, transfuse for Hgb<8.0, observe monitor renal recovery 5. Chest PT, O2 to keep saO2>90%, BD as needed 6. Resume and complete T spine RT when medically feasible 7. Vent support per ICU, transfuse pRBC and Plt
--- NOTE | 2017-10-18 16:38 | PN ---
Progress Note (short form) - Note Progress Note: seen in icu intubated on vent low bp Current Medications Albuterol/Ipratropium (Duoneb -) 1 amp NEB QIDR [facility]CLUDES [facility] Last Admin: 10/18/17 11:05 Dose: 1 amp Dexamethasone Sodium Phosphate (Decadron Injection -) 4 mg IVPUSH Q8H-IV MARC Last Admin: 10/18/17 09:33 Dose: 4 mg Folic Acid (Folic Acid -) 1 mg PO DAILY [facility] Last Admin: 10/18/17 09:33 Dose: Not Given Gabapentin (Neurontin -) 200 mg PO TID [facility] Last Admin: 10/18/17 14:34 Dose: Not Given Hydromorphone HCl (Dilaudid Injection -) 3 mg IVPB Q4H PRN PRN Reason: PAIN Last Admin: 10/16/17 03:00 Dose: 3 mg Nafcillin Sodium 2 gm/ (Dextrose) 100 mls @ 100 mls/hr IVPB Q4H-IV MARC PRN Reason: Protocol Last Admin: 10/18/17 14:34 Dose: 100 mls/hr Fentanyl 500 mcg/ Dextrose 100 mls @ 5 mls/hr IVPB TITR MARC; 25 MCG/HR PRN Reason: Protocol Last Admin: 10/18/17 11:10 Dose: 15 mls/hr Dextrose/Sodium Chloride (D5-1/2ns -) 1,000 mls @ 83 mls/hr IV ASDIR [facility]CLUDES [facility] Last Admin: 10/17/17 23:55 Dose: 83 mls/hr Levothyroxine Sodium (Synthroid -) 100 mcg PO DAILY@0700 [facility] Last Admin: 10/18/17 06:22 Dose: Not Given Lidocaine (Lidoderm Patch -) 1 patch TP DAILY [facility] Last Admin: 10/18/17 09:33 Dose: 1 patch Magnesium Oxide (Mag-Ox -) 400 mg PO BID [facility] Last Admin: 10/18/17 10:54 Dose: 400 mg Midazolam HCl (Versed -) 2 mg IVPUSH Q1H PRN PRN Reason: AGITATION Last Admin: 10/18/17 09:28 Dose: 2 mg Mirtazapine (Remeron -) 15 mg PO HS [facility] Last Admin: 10/17/17 22:00 Dose: 15 mg Miscellaneous (Lidoderm Patch Removal) 1 each MC DAILY@2200 [facility] Last Admin: 10/17/17 22:00 Dose: 1 each Miscellaneous (Duragesic Patch Waste) 1 each MC PRN PRN PRN Reason: PAIN Morphine Sulfate (Ms Contin -) 15 mg PO TID [facility] Last Admin: 10/18/17 05:55 Dose: Not Given Pantoprazole Sodium (Protonix -) 40 mg PO DAILY [facility] Last Admin: 10/18/17 10:53 Dose: 40 mg Scopolamine HBr (Transderm-Scop -) 1 patch TD Q72H [facility] Last Admin: 10/16/17 17:21 Dose: 1 patch unresponsive/sedated vital signs lungs vented abd soft ext no edema CBC, BMP 10/18/17 05:10 10/18/17 05:10 CBC, BMP 10/17/17 05:00 10/17/17 05:00 IMP- MOF/ LEIDA/hypotensive resp failure Prerenal azotemia nonoliguric but urine output decreasing large positive balance/hypoalbuminemia mssa bacteremia severe anemia- transfused metastatic adenoca hyponatremia resolved cva Plan prognosis poor monitor urine output maintain map
[2017-10-18] MEDS: LIDOCAINE PATCH REMOVAL MC SCH (21:21)
[2017-10-18] MEDS: MIRTAZAPINE 15 MG TABLET (FP) PO SCH (21:22)
--- NOTE | 2017-10-18 23:58 | PN ---
Progress Note, Physician - Current Medication List Current Medications: Active Medications Albuterol/Ipratropium (Duoneb -) 1 amp NEB QIDR [facility] Last Admin: 10/18/17 17:00 Dose: 1 amp Dexamethasone Sodium Phosphate (Decadron Injection -) 4 mg IVPUSH Q8H-IV [facility] Last Admin: 10/18/17 17:47 Dose: 4 mg Folic Acid (Folic Acid -) 1 mg PO DAILY [facility] Last Admin: 10/18/17 09:33 Dose: Not Given Gabapentin (Neurontin -) 200 mg PO TID [facility] Last Admin: 10/18/17 21:22 Dose: Not Given Hydromorphone HCl (Dilaudid Injection -) 3 mg IVPB Q4H PRN PRN Reason: PAIN Last Admin: 10/16/17 03:00 Dose: 3 mg Nafcillin Sodium 2 gm/ (Dextrose) 100 mls @ 100 mls/hr IVPB Q4H-IV MARC PRN Reason: Protocol Last Admin: 10/18/17 21:22 Dose: 100 mls/hr Fentanyl 500 mcg/ Dextrose 100 mls @ 5 mls/hr IVPB TITR MARC; 25 MCG/HR PRN Reason: Protocol Last Admin: 10/18/17 21:21 Dose: 5 mls/hr Dextrose/Sodium Chloride (D5-1/2ns -) 1,000 mls @ 83 mls/hr IV ASDIR [facility] Last Admin: 10/17/17 23:55 Dose: 83 mls/hr Levothyroxine Sodium (Synthroid -) 100 mcg PO DAILY@0700 [facility] Last Admin: 10/18/17 06:22 Dose: Not Given Lidocaine (Lidoderm Patch -) 1 patch TP DAILY [facility] Last Admin: 10/18/17 09:33 Dose: 1 patch Magnesium Oxide (Mag-Ox -) 400 mg PO BID [facility] Last Admin: 10/18/17 21:21 Dose: 400 mg Midazolam HCl (Versed -) 2 mg IVPUSH Q1H PRN PRN Reason: AGITATION Last Admin: 10/18/17 09:28 Dose: 2 mg Mirtazapine (Remeron -) 15 mg PO HS [facility] Last Admin: 10/18/17 21:22 Dose: Not Given Miscellaneous (Lidoderm Patch Removal) 1 each MC DAILY@2200 [facility] Last Admin: 12/25/17 21:21 Dose: 1 each Miscellaneous (Duragesic Patch Waste) 1 each MC PRN PRN PRN Reason: PAIN Morphine Sulfate (Ms Contin -) 15 mg PO TID [facility] Last Admin: 10/18/17 14:00 Dose: Not Given Pantoprazole Sodium (Protonix -) 40 mg PO DAILY [facility] Last Admin: 10/18/17 10:53 Dose: 40 mg Scopolamine HBr (Transderm-Scop -) 1 patch TD Q72H [facility] Last Admin: 10/16/17 17:21 Dose: 1 patch - Objective Vital Signs: Vital Signs Temperature 98.7 F 10/18/17 06:00 Pulse Rate 110 H 10/18/17 21:46 Respiratory Rate 27 H 10/18/17 22:39 Blood Pressure 95/68 10/18/17 21:46 O2 Sat by Pulse Oximetry (%) 90 L 10/18/17 20:21 Labs: CBC, BMP 10/18/17 05:10 10/18/17 05:10 INR, PTT INR 1.18 (0.82-1.09) H 10/17/17 05:00 Fibrinogen 631.0 mg/dL (238-498) H 10/13/17 16:00 Problem List - Problems (1) Intractable back pain Code(s): M54.9 - DORSALGIA, UNSPECIFIED (2) Thrombocytopenia Code(s): D69.6 - THROMBOCYTOPENIA, UNSPECIFIED (3) Metastatic adenocarcinoma Code(s): C79.9 - SECONDARY MALIGNANT NEOPLASM OF UNSPECIFIED SITE (4) Anemia Code(s): D64.9 - ANEMIA, UNSPECIFIED Qualifiers: Bone marrow failure anemia type: pancytopenia, antineoplastic chemotherapy- induced (5) COPD (chronic obstructive pulmonary disease) Code(s): J44.9 - CHRONIC OBSTRUCTIVE PULMONARY DISEASE, UNSPECIFIED Qualifiers: COPD type: unspecified COPD Qualified Code(s): J44.9 - Chronic obstructive pulmonary disease, unspecified (6) Hypothyroidism Code(s): E03.9 - HYPOTHYROIDISM, UNSPECIFIED Qualifiers: Hypothyroidism type: unspecified Qualified Code(s): E03.9 - Hypothyroidism , unspecified
[2017-10-19] MEDS: DEXTROSE 5%-0.45% SALINE 1,000 ML IV SCH (00:35)
[2017-10-19] MEDS ORDERED: fentaNYL CITRATE 250 MCG/5 ML VIAL ONE (01:19)
[2017-10-19] MEDS: MIDAZOLAM HCL 2 MG/2 ML SINGLE DOSE VIAL IVPUSH PRN ×2 (01:34→06:36)
[2017-10-19] MEDS: NAFCILLIN - 2 GM in DEXTROSE 5%-WATER - 100 ML IVPB SCH ×3 (01:35→09:45)
[2017-10-19] MEDS: DEXAMETHASONE SOD PHOSPHATE 4 MG/1 ML VIAL IVPUSH SCH ×2 (01:35→09:45)
[2017-10-19 06:28] LABS: CHLORIDE 107 mmol/L (98-107); SODIUM 140 mmol/L (136-145)
[2017-10-19] MEDS: LEVOTHYROXINE NA 100 MCG TABLET (FP) PO SCH ×2 (06:33→09:46)
[2017-10-19] MEDS: morphine SO4 SUSTAINED ACTING 15 MG TABLET.SA PO SCH ×2 (06:33→15:00)
[2017-10-19] MEDS: GABAPENTIN 100 MG CAPSULE (FP) PO SCH ×2 (06:33→15:00)
[2017-10-19] MEDS ORDERED: PT OWN MED DRAWER 7, Y5N ONE ×2 (06:35→08:45)
[2017-10-19 06:36] LABS: ALK PHOS 36 U/L (45-117); ANION GAP 9 (8-16); BILIRUBIN,TOTAL 0.9 mg/dL (0.2-1.0); BLOOD UREA NITROGEN 47 mg/dL (7-18); CO2 24 mmol/L (21-32); CREATININE 2.7 mg/dL (0.7-1.3); GLUCOSE,RANDOM 110 mg/dL (74-106); PHOSPHOROUS 4.8 mg/dL (2.5-4.9); SGPT/ALT 8 U/L (12-78)
[2017-10-19 06:48] LABS: INR 1.72 (0.82-1.09); PROTHROMBIN TIME (PATIENT) 19.4 SEC (9.98-11.88)
[2017-10-19] MEDS: ALBUTEROL SO4 2.5/IPRATROPIUM 0.5 INH SOL 3 ML VIAL.NEB. NEB SCH ×3 (06:50→11:05)
[2017-10-19 06:51] LABS: ACTIVATED PTT 26.5 SECONDS (26.9-34.4)
[2017-10-19 06:56] LABS: ALBUMIN 0.4 g/dl (3.4-5.0); POTASSIUM 4.2 mmol/L (3.5-5.1); TOT PROT 1.4 g/dl (6.4-8.2)
[2017-10-19 06:57] LABS: CALCIUM 6.6 mg/dL (8.5-10.1); MAGNESIUM 1.9 mg/dL (1.8-2.4); SGOT/AST 22 U/L (15-37)
[2017-10-19 07:44] LABS: ARTERIAL BLD GAS O2 SATURATION 95.9 % (90-98.9); ARTERIAL BLOOD GAS BASE EXCESS -4.3 meq/l (-2-2); ARTERIAL BLOOD GAS PO2 89.5 mmHg (80-100); ARTERIAL BLOOD GAS pH 7.28 (7.35-7.45)
[2017-10-19 07:54] LABS: ALLENS TEST POSITIVE
--- NOTE | 2017-10-19 09:06 | PN ---
Progress Note (short form) - Note Progress Note: sedated, intubated remains on nafcillin for MSSA bacteremia Vital Signs Period Temp Pulse Resp BP Sys/Brandon Pulse Ox Last 24 Hr 96.5 F-99.0 F 92-126 18-27 82-101/56-73 90-97 sedated, intubated cor-rrr lungs decreased bs on the right abd soft,nt ext feet are mottled and cold CBC, BMP 10/19/17 05:05 10/19/17 05:05 Microbiology 10/16/17 08:48 Blood - Peripheral Venous Blood Culture - Preliminary NO GROWTH OBTAINED AFTER 48 HOURS, INCUBATION TO CONTINUE FOR 3 DAYS. 10/16/17 10:20 Blood - Peripheral Venous Blood Culture - Preliminary NO GROWTH OBTAINED AFTER 48 HOURS, INCUBATION TO CONTINUE FOR 3 DAYS. 10/14/17 10:10 Blood - Peripheral Venous Blood Culture - Final Staphylococcus Aureus 10/12/17 21:45 Blood - Peripheral Venous Blood Culture - Final Staphylococcus Aureus 10/11/17 Unknown Blood - Central Line Blood Culture - Final Staphylococcus Aureus 10/12/17 21:25 Blood - Peripheral Venous Blood Culture - Final Staphylococcus Aureus 10/11/17 Unknown Blood - Central Line Blood Culture - Final Staphylococcus Aureus 10/14/17 10:10 Blood - Peripheral Venous Blood Culture - Preliminary Pending Organism 10/11/17 21:00 Urine - Urine Clean Catch Urine Culture - Final NO GROWTH OBTAINED Current Medications Albuterol/Ipratropium (Duoneb -) 1 amp NEB QIDR [facility] Last Admin: 10/19/17 06:50 Dose: 1 amp Dexamethasone Sodium Phosphate (Decadron Injection -) 4 mg IVPUSH Q8H-IV [facility] Last Admin: 10/19/17 01:35 Dose: 4 mg Folic Acid (Folic Acid -) 1 mg PO DAILY [facility] Last Admin: 10/18/17 09:33 Dose: Not Given Gabapentin (Neurontin -) 200 mg PO TID [facility] Last Admin: 10/19/17 06:33 Dose: Not Given Hydromorphone HCl (Dilaudid Injection -) 3 mg IVPB Q4H PRN PRN Reason: PAIN Last Admin: 10/16/17 03:00 Dose: 3 mg Nafcillin Sodium 2 gm/ (Dextrose) 100 mls @ 100 mls/hr IVPB Q4H-IV MARC PRN Reason: Protocol Last Admin: 10/19/17 06:35 Dose: 100 mls/hr Fentanyl 500 mcg/ Dextrose 100 mls @ 5 mls/hr IVPB TITR MARC; 25 MCG/HR PRN Reason: Protocol Last Admin: 10/18/17 21:21 Dose: 5 mls/hr Dextrose/Sodium Chloride (D5-1/2ns -) 1,000 mls @ 83 mls/hr IV ASDIR [facility] Last Admin: 10/19/17 00:35 Dose: 83 mls/hr Levothyroxine Sodium (Synthroid -) 100 mcg PO DAILY@0700 [facility] Last Admin: 10/19/17 06:33 Dose: Not Given Lidocaine (Lidoderm Patch -) 1 patch TP DAILY [facility] Last Admin: 10/18/17 09:33 Dose: 1 patch Magnesium Oxide (Mag-Ox -) 400 mg PO BID [facility] Last Admin: 10/18/17 21:21 Dose: 400 mg Midazolam HCl (Versed -) 2 mg IVPUSH Q1H PRN PRN Reason: AGITATION Last Admin: 10/19/17 06:36 Dose: 2 mg Mirtazapine (Remeron -) 15 mg PO HS [facility] Last Admin: 10/18/17 21:22 Dose: Not Given Miscellaneous (Lidoderm Patch Removal) 1 each MC DAILY@2200 [facility] Last Admin: 10/18/17 21:21 Dose: 1 each Miscellaneous (Duragesic Patch Waste) 1 each MC PRN PRN PRN Reason: PAIN Morphine Sulfate (Ms Contin -) 15 mg PO TID [facility] Last Admin: 10/19/17 06:33 Dose: Not Given Pantoprazole Sodium (Protonix -) 40 mg PO DAILY [facility] Last Admin: 10/18/17 10:53 Dose: 40 mg Scopolamine HBr (Transderm-Scop -) 1 patch TD Q72H [facility] Last Admin: 10/16/17 17:21 Dose: 1 patch cxray- persistent opacification right lung a/p MSSA bacteremia- sepsis secondary to MSSA bacteremia port removed 10/15 respiratory failure lung cancer anemia/thrombocytopenia LEIDA continue nafcillin overall prognosis is grim
[2017-10-19] MEDS: PANTOPRAZOLE 40 MG TABLET (FP) PO SCH (09:44)
[2017-10-19] MEDS: FOLIC ACID 1 MG TABLET (FP) PO SCH (09:44)
[2017-10-19] MEDS: MAGNESIUM OXIDE 400 MG TABLET (FP) PO SCH (09:44)
[2017-10-19] MEDS: LIDOCAINE 5% TOPICAL PATCH TP SCH (09:46)
[2017-10-19] MEDS: FENTANYL INJECTION 500 MCG in DEXTROSE 5%-WATER - 90 ML IVPB SCH (09:51)
--- NOTE | 2017-10-19 10:53 | PN ---
Progress Note (short form) - Note Progress Note: Chief Complaint: Events noted, notes reviewed, intubated, tachypnea noted, sinus tachycardia noted, DNR History of Present Illness: Seen and examined in the ICU. Events noted, notes reviewed, intubated, tachypnea noted, sinus tachycardia noted, DNR TTE reports noted limited study, no indications to proceed with DANNI given his advanced disease and current status - Current Medication List Current Medications Albuterol/Ipratropium (Duoneb -) 1 amp NEB QIDR [facility] Last Admin: 10/19/17 06:50 Dose: 1 amp Dexamethasone Sodium Phosphate (Decadron Injection -) 4 mg IVPUSH Q8H-IV [facility] Last Admin: 10/19/17 09:45 Dose: 4 mg Folic Acid (Folic Acid -) 1 mg PO DAILY [facility] Last Admin: 10/19/17 09:44 Dose: 1 mg Gabapentin (Neurontin -) 200 mg PO TID [facility] Last Admin: 10/19/17 06:33 Dose: Not Given Hydromorphone HCl (Dilaudid Injection -) 3 mg IVPB Q4H PRN PRN Reason: PAIN Last Admin: 10/16/17 03:00 Dose: 3 mg Nafcillin Sodium 2 gm/ (Dextrose) 100 mls @ 100 mls/hr IVPB Q4H-IV MARC PRN Reason: Protocol Last Admin: 10/19/17 09:45 Dose: 100 mls/hr Fentanyl 500 mcg/ Dextrose 100 mls @ 5 mls/hr IVPB TITR MARC; 25 MCG/HR PRN Reason: Protocol Last Admin: 10/19/17 09:51 Dose: 20 mls/hr Dextrose/Sodium Chloride (D5-1/2ns -) 1,000 mls @ 83 mls/hr IV ASDIR [facility] Last Admin: 10/19/17 00:35 Dose: 83 mls/hr Levothyroxine Sodium (Synthroid -) 100 mcg PO DAILY@0700 [facility] Last Admin: 10/19/17 06:33 Dose: Not Given Lidocaine (Lidoderm Patch -) 1 patch TP DAILY [facility] Last Admin: 10/19/17 09:46 Dose: 1 patch Magnesium Oxide (Mag-Ox -) 400 mg PO BID [facility] Last Admin: 10/19/17 09:44 Dose: 400 mg Midazolam HCl (Versed -) 2 mg IVPUSH Q1H PRN PRN Reason: AGITATION Last Admin: 10/19/17 06:36 Dose: 2 mg Mirtazapine (Remeron -) 15 mg PO HS [facility] Last Admin: 10/18/17 21:22 Dose: Not Given Miscellaneous (Lidoderm Patch Removal) 1 each MC DAILY@2200 [facility] Last Admin: 10/18/17 21:21 Dose: 1 each Miscellaneous (Duragesic Patch Waste) 1 each MC PRN PRN PRN Reason: PAIN Morphine Sulfate (Ms Contin -) 15 mg PO TID [facility] Last Admin: 10/19/17 06:33 Dose: Not Given Pantoprazole Sodium (Protonix -) 40 mg PO DAILY [facility] Last Admin: 10/19/17 09:44 Dose: 40 mg Scopolamine HBr (Transderm-Scop -) 1 patch TD Q72H [facility] Last Admin: 10/16/17 17:21 Dose: 1 patch Review of Systems Unable to obtain - Objective Vital Signs: Last Vital Signs Temp Pulse Resp BP Pulse Ox 96.5 F L 126 H 26 H 88/71 90 L 10/19/17 02:00 10/19/17 06:00 10/19/17 07:19 10/19/17 06:00 10/18/17 20:21 Intake & Output 10/16/17 10/17/17 10/18/17 10/19/17 23:59 23:59 23:59 23:59 Intake Total 3282.8 3495 2627 1383 Output Total 200 900 700 0 Balance 3082.8 2595 1927 1383 Weight 160 lb 7.944 oz 170 lb 2 oz 176 lb 4.8 oz 182 lb 8.684 oz Constitutional: Moderate Respiratory Distress, Intubated Neck: Supple Negative JVD No Bruit Cardiovascular: S1 S2 Regular Rate Rhythm Respiratory: Diminished Breath Sounds at the Bases Scattered Rhonchi Gastrointestinal: Soft Benign Normal Bowel Sounds Ext: No Edema Bilateral Leg and Feet Mottling Noted Labs: CBC, BMP 10/19/17 05:05 10/19/17 05:05 Assessment/Plan ASSESSMENT: 1. Acute stroke possible embolic vs. underlying metastatic disease 2. 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 Persistent MSSA bacteremia, line sepsis post port removal 4. Acute hypoxic respiratory failure, remains intubated 5. Hypothyroidism 6. Anemia and Thrombocytopenia 7. Acute kidney injury, acute renal insufficiency PLAN: 1. As outlined in prior notes TTE poor quality, not ideal candidate for DANNI given extent of underlying disease and co-morbid conditions 2. Antibiotics as the primary team 3. Ventilator management as per the ICU team 4. Advanced directives to be reviewed with next of kin As outlined patient currently is DNR Frank Sherman M.D.
--- NOTE | 2017-10-19 11:03 | PN ---
Progress Note (short form) - Note Progress Note: chart reviewed in detail. Pt seen and examined Not much change from yesterday. Brother at bedside. O/E: General: Intubated sedated on fentanyl/Versed Neuro: not responsive Lungs: Coarse Cor: rrr Abdomen: BS+ Extremities: No CCE. Last Vital Signs Temp Pulse Resp BP Pulse Ox 96.5 F L 126 H 26 H 88/71 90 L 10/19/17 02:00 10/19/17 06:00 10/19/17 07:19 10/19/17 06:00 10/18/17 20:21 CBC, BMP CBC :reviewed 10/19/17 05:05 Current Medications Generic Name Dose Route Start Last Admin Trade Name Freq PRN Reason Stop Dose Admin Albuterol/Ipratropium 1 amp 10/16/17 12:00 10/19/17 06:50 Duoneb - NEB 1 amp QIDR MARC Administration Dexamethasone Sodium Phosphate 4 mg 10/17/17 02:00 10/19/17 09:45 Decadron Injection - IVPUSH 4 mg Q8H-IV MARC Administration Folic Acid 1 mg 10/09/17 10:00 10/19/17 09:44 Folic Acid - PO 1 mg DAILY MARC Administration Gabapentin 200 mg 10/11/17 22:30 10/19/17 06:33 Neurontin - PO Not Given TID MARC Hydromorphone HCl 3 mg 10/14/17 00:31 10/16/17 03:00 Dilaudid Injection - IVPB 3 mg Q4H PRN Administration PAIN Nafcillin Sodium 2 gm/ 100 mls @ 100 mls/hr 10/14/17 10:00 10/19/17 09:45 Dextrose IVPB 100 mls/hr Q4H-IV MARC Administration Protocol Fentanyl 500 mcg/ Dextrose 100 mls @ 5 mls/hr 10/16/17 18:15 10/19/17 09:51 IVPB 20 mls/hr TITR MARC Administration Protocol 25 MCG/HR Dextrose/Sodium Chloride 1,000 mls @ 83 mls/hr 10/16/17 23:45 10/19/17 00:35 D5-1/2ns - IV 83 mls/hr ASDIR [facility]ARC Administration Levothyroxine Sodium 100 mcg 10/09/17 07:00 10/19/17 06:33 Synthroid - PO Not Given DAILY@0700 MARC Lidocaine 1 patch 10/09/17 10:00 10/19/17 09:46 Lidoderm Patch - TP 1 patch DAILY [facility] Administration Magnesium Oxide 400 mg 10/08/17 22:00 10/19/17 09:44 Mag-Ox - PO 400 mg BID MARC Administration Midazolam HCl 2 mg 10/16/17 11:57 10/19/17 06:36 Versed - IVPUSH 2 mg Q1H PRN Administration AGITATION Mirtazapine 15 mg 10/08/17 22:00 10/18/17 21:22 Remeron - PO Not Given HS MARC Miscellaneous 1 each 10/08/17 22:00 10/18/17 21:21 Lidoderm Patch Removal MC 1 each DAILY@2200 MARC Administration Miscellaneous 1 each 10/12/17 19:32 Duragesic Patch Waste MC PRN PRN PAIN Morphine Sulfate 15 mg 10/12/17 22:00 10/19/17 06:33 Ms Contin - PO Not Given TID MARC Pantoprazole Sodium 40 mg 10/09/17 10:00 10/19/17 09:44 Protonix - PO 40 mg DAILY [facility] Administration Scopolamine HBr 1 patch 10/16/17 12:00 10/16/17 17:21 Transderm-Scop - TD 1 patch Q72H MARC Administration is with metastatic adeno ca of the lung, mets to spinal cord, [employer] admitted for back pain and thrombocytopenia, course complicated by MSSA bacteremia, LEIDA and a CVA , Presently Intubated for respiratory failure. CBC acceptable on abx for MSSA LEIDA worsening prognosis guarded palliative care input.
[2017-10-19 11:36] LABS: HEMOGLOBIN 8.4 GM/dL (11.7-16.9); MCH 23.9 pg (25.7-33.7); MCHC 31.2 g/dl (32.0-35.9); MEAN CELL VOLUME 76.7 fl (80-96); MEAN PLT VOLUME 8.2 fl (7.5-11.1); RBC 3.51 M/mm3 (4.00-5.60); RDW 21.5 % (11.9-15.9); WHITE BLOOD COUNT 14.1 K/mm3 (4.0-10.0)
[2017-10-19 11:48] LABS: PLATELET COUNT 19 K/MM3 (134-434)
[2017-10-19 12:20] VITALS: TEMP 98.8
--- NOTE | 2017-10-19 12:28 | PN ---
Physical Exam: SUBJECTIVE: Patient intubated over the weekend for diminishing respiratory drive. Brother and other family would like to compassionately extubate today. OBJECTIVE: Vital Signs Period Temp Pulse Resp BP Sys/Brandon Pulse Ox Last 24 Hr 96.5 F-99.0 F 93-126 18-33 73-101/59-71 90-95 GENERAL: The patient is sedated and only arousable to deep sternal rub with minor hand movements. HEAD: Normal with no signs of trauma. EYES: Eyes closed ENT: Ears normal, nares patent, ETT in place, moist mucous membranes. NECK: Trachea midline, full range of motion, supple. LUNGS: Kussmaul breathing pattern, difficult to auscultate on the right side with occasional rales. HEART: Regular rate and rhythm, S1, S2 without murmur, rub or gallop. ABDOMEN: Soft, nontender, nondistended, normoactive bowel sounds, no guarding, no rebound, no hepatosplenomegaly, no masses. EXTREMITIES: 2+ pulses, warm, well-perfused, no edema. NEUROLOGICAL: Sedated PSYCH: Normal mood, normal affect. SKIN: Warm, dry, normal turgor, no rashes or lesions noted Laboratory Results - last 24 hr 10/19/17 10/19/17 10/19/17 05:05 05:05 05:05 WBC Cancelled Corrected WBC (auto) Cancelled RBC Cancelled Hgb Cancelled Hct Cancelled MCV Cancelled MCH Cancelled MCHC Cancelled RDW Cancelled Plt Count Cancelled MPV Cancelled Total Counted Cancelled Neutrophils % Cancelled Neutrophils % (Manual) Cancelled Band Neutrophils % Cancelled Lymphocytes % Cancelled Lymphocytes % (Manual) Cancelled Monocytes % Cancelled Monocytes % (Manual) Cancelled Eosinophils % Cancelled Eosinophils % (Manual) Cancelled Basophils % Cancelled Basophils % (Manual) Cancelled Myelocytes % (Man) Cancelled Promyelocytes % (Man) Cancelled Blast Cells % (Manual) Cancelled Nucleated RBC % Cancelled Metamyelocytes Cancelled Differential Comment Cancelled Hypersegmented Neuts Cancelled Plasma Cells Cancelled Smudge Cells Cancelled Other Cell Type Cancelled Hypochromia Cancelled Toxic Granulation Cancelled Dohle Bodies Cancelled Justin Rods Cancelled Platelet Estimate Cancelled Platelet Comment Cancelled Polychromasia Cancelled Poikilocytosis Cancelled Basophilic Stippling Cancelled Anisocytosis Cancelled Microcytosis Cancelled Macrocytosis Cancelled Spherocytes Cancelled Siderocytes Cancelled Sickle Cells Cancelled Target Cells Cancelled Tear Drop Cells Cancelled Ovalocytes Cancelled Stomatocytes Cancelled Helmet Cells Cancelled [place] Bodies Cancelled [place] Rings Cancelled Lora Cells Cancelled Acanthocytes (Spur) Cancelled Rouleaux Cancelled Fragmented RBCs Cancelled Schistocytes Cancelled PT with INR 19.40 H INR 1.72 H D PTT (Actin FS) 26.5 L D Puncture Site ABG pH ABG pCO2 at Pt Temp ABG pO2 at Pt Temp ABG HCO3 ABG O2 Sat (Measured) ABG O2 Content ABG Base Excess Bebo Test O2 Delivery Device Oxygen Flow Rate Vent Mode Vent Rate Mechanical Rate PEEP Pressure Support Vent Sodium 140 Potassium 4.2 D Chloride 107 Carbon Dioxide 24 Anion Gap 9 BUN 47 H Creatinine 2.7 H Creat Clearance w eGFR 24.84 Random Glucose 110 H Calcium 6.6 L* Phosphorus 4.8 Magnesium 1.9 Total Bilirubin 0.9 D AST 22 D ALT 8 L D Alkaline Phosphatase 36 L D Total Protein 1.4 L D Albumin 0.4 L D 10/19/17 10/19/17 07:35 11:20 WBC 14.1 H Corrected WBC (auto) RBC 3.51 L Hgb 8.4 L D Hct 27.0 L MCV 76.7 L MCH 23.9 L MCHC 31.2 L RDW 21.5 H Plt Count 19 L* D MPV 8.2 Total Counted Neutrophils % Neutrophils % (Manual) Band Neutrophils % Lymphocytes % Lymphocytes % (Manual) Monocytes % Monocytes % (Manual) Eosinophils % Eosinophils % (Manual) Basophils % Basophils % (Manual) Myelocytes % (Man) Promyelocytes % (Man) Blast Cells % (Manual) Nucleated RBC % Metamyelocytes Differential Comment Hypersegmented Neuts Plasma Cells Smudge Cells Other Cell Type Hypochromia Toxic Granulation Dohle Bodies Justin Rods Platelet Estimate Platelet Comment Polychromasia Poikilocytosis Basophilic Stippling Anisocytosis Microcytosis Macrocytosis Spherocytes Siderocytes Sickle Cells Target Cells Tear Drop Cells Ovalocytes Stomatocytes Helmet Cells Worrell-[place] Bodies [place] Rings Lora Cells Acanthocytes (Spur) Rouleaux Fragmented RBCs Schistocytes PT with INR INR PTT (Actin FS) Puncture Site Right radial ABG pH 7.28 L ABG pCO2 at Pt Temp 48.0 H ABG pO2 at Pt Temp 89.5 ABG HCO3 21.8 L ABG O2 Sat (Measured) 95.9 ABG O2 Content 12.1 L ABG Base Excess -4.3 L Bebo Test Positive O2 Delivery Device Vent Oxygen Flow Rate 60% Vent Mode Vent Vent Rate 14 Mechanical Rate Yes PEEP 10.0 Pressure Support Vent 450 Sodium Potassium Chloride Carbon Dioxide Anion Gap BUN Creatinine Creat Clearance w eGFR Random Glucose Calcium Phosphorus Magnesium Total Bilirubin AST ALT Alkaline Phosphatase Total Protein Albumin Active Medications Generic Name Dose Route Start Last Admin Trade Name Freq PRN Reason Stop Dose Admin Albuterol/Ipratropium 1 amp 10/16/17 12:00 10/19/17 11:05 Duoneb - NEB 1 amp QIDR MARC Administration Dexamethasone Sodium Phosphate 4 mg 10/17/17 02:00 10/19/17 09:45 Decadron Injection - IVPUSH 4 mg Q8H-IV MARC Administration Folic Acid 1 mg 10/09/17 10:00 10/19/17 09:44 Folic Acid - PO 1 mg DAILY MARC Administration Gabapentin 200 mg 10/11/17 22:30 10/19/17 06:33 Neurontin - PO Not Given TID MARC Hydromorphone HCl 3 mg 10/14/17 00:31 10/16/17 03:00 Dilaudid Injection - IVPB 3 mg Q4H PRN Administration PAIN Fentanyl 500 mcg/ Dextrose 100 mls @ 5 mls/hr 10/16/17 18:15 10/19/17 09:51 IVPB 20 mls/hr TITR MARC Administration Protocol 25 MCG/HR Dextrose/Sodium Chloride 1,000 mls @ 83 mls/hr 10/16/17 23:45 10/19/17 00:35 D5-1/2ns - IV 83 mls/hr ASDIR MARC Administration Nafcillin Sodium 2 gm/ Sodium 100 mls @ 100 mls/hr 10/19/17 14:00 Chloride IVPB 10/21/17 09:59 Q4H-IV MARC Protocol Levothyroxine Sodium 100 mcg 10/09/17 07:00 10/19/17 06:33 Synthroid - PO Not Given DAILY@0700 MARC Lidocaine 1 patch 10/09/17 10:00 10/19/17 09:46 Lidoderm Patch - TP 1 patch DAILY MARC Administration Magnesium Oxide 400 mg 10/08/17 22:00 10/19/17 09:44 Mag-Ox - PO 400 mg BID MARC Administration Mirtazapine 15 mg 10/08/17 22:00 10/18/17 21:22 Remeron - PO Not Given HS MARC Miscellaneous 1 each 10/08/17 22:00 10/18/17 21:21 Lidoderm Patch Removal MC 1 each DAILY@2200 MARC Administration Miscellaneous 1 each 10/12/17 19:32 Duragesic Patch Waste MC PRN PRN PAIN Morphine Sulfate 15 mg 10/12/17 22:00 10/19/17 06:33 Ms Contin - PO Not Given TID MARC Pantoprazole Sodium 40 mg 10/09/17 10:00 10/19/17 09:44 Protonix - PO 40 mg DAILY MARC Administration Scopolamine HBr 1 patch 10/16/17 12:00 10/16/17 17:21 Transderm-Scop - TD 1 patch Q72H MARC Administration ASSESSMENT/PLAN: 51 year old male with PMH pf COPD, hypothyroidism, and stage 4 lung adenocarcinoma (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 Transferred to ICU with AMS 2/2 possible stroke as e/b hypodensity on CT + /- toxic metabolic encephlopathy 2/2 MSSA bacteremia and pain med usage currently intubated after rapid respiratory declined over the weekend and heavily sedated with compassionate extubation set for today. Plan: Neuro/ID: AMS: likely secondary to stroke/ brain lesion +/- encephalopathy - Continue sedation as family want to move toward compassionate extubation - start morphine drip - Continue haldol PRN for agitation, fentanyl patch, dilaudid PRN, oxycodone - Neuro recs appreciated CV: Hypotension 2/2 sepsis +/- sedation. Off pressers for three days. - Appears resolved - Fluid bolus prn ID: [id number] Bacteremia: - Dr. Hall removed medport last week. - Continue Nafcillin antib coverage for MSSA - Haldol prn for delirium agitation - ID recs apprecaited Heme: Severe anemia and thrombocytepenia in setting of sepsis - Monitor CBC, coags and fibrinogen - Platelets low this AM but no need for repletion as >20 and not bleeding - Transfuse for Hgb<8, Plts<20 Endo: Hyperglycemia on steroids -Fingersticks q6 Hypothyroidism -Cont synthroid FEN: - Intubated with OG tube - Replete lytes PRN Proph: - Thrombocytopenic - SCDs - PPI Dispo: - Palliative recs appreciated and will move toward extubation today while on morphine drip Visit type - Emergency Visit Emergency Visit: No - New Patient This patient is new to me today: No - Critical Care Critical Care patient: Yes Total Critical Care Time (in minutes): 35 Critical Care Statement: The care of this patient involved high complexity decision making to prevent further life threatening deterioration of the patient 's condition and/or to evaluate & treat vital organ system(s) failure or risk of failure.
--- NOTE | 2017-10-19 12:30 | PN ---
Teaching Attending Note Name of Resident: Dalila Jones ATTENDING PHYSICIAN STATEMENT I saw and evaluated the patient. I reviewed the resident's note and discussed the case with the resident. I agree with the resident's findings and plan as documented. SUBJECTIVE: Patient seen and examined in the ICU. Remains intubated and sedated. Intermittent transfusions for oral bleeding. AC Mode of vent 60% FiO2. No pressors. CXR: Right complete atelectasis Intake & Output 10/16/17 10/17/17 10/18/17 10/19/17 23:59 23:59 23:59 23:59 Intake Total 3282.8 3495 2627 1383 Output Total 200 900 700 0 Balance 3082.8 2595 1927 1383 Weight 160 lb 7.944 oz 170 lb 2 oz 176 lb 4.8 oz 182 lb 8.684 oz Last Vital Signs Temp Pulse Resp BP Pulse Ox 98.8 F 119 H 21 83/59 95 10/19/17 08:00 10/19/17 12:00 10/19/17 12:06 10/19/17 12:00 10/19/17 09:45 Active Medications Albuterol/Ipratropium (Duoneb -) 1 amp NEB QIDR [facility] Last Admin: 10/19/17 11:05 Dose: 1 amp Dexamethasone Sodium Phosphate (Decadron Injection -) 4 mg IVPUSH Q8H-IV MARC Last Admin: 10/19/17 09:45 Dose: 4 mg Folic Acid (Folic Acid -) 1 mg PO DAILY [facility] Last Admin: 10/19/17 09:44 Dose: 1 mg Gabapentin (Neurontin -) 200 mg PO TID [facility] Last Admin: 10/19/17 06:33 Dose: Not Given Hydromorphone HCl (Dilaudid Injection -) 3 mg IVPB Q4H PRN PRN Reason: PAIN Last Admin: 10/16/17 03:00 Dose: 3 mg Fentanyl 500 mcg/ Dextrose 100 mls @ 5 mls/hr IVPB TITR MARC; 25 MCG/HR PRN Reason: Protocol Last Admin: 10/19/17 09:51 Dose: 20 mls/hr Dextrose/Sodium Chloride (D5-1/2ns -) 1,000 mls @ 83 mls/hr IV ASDIR MARC Last Admin: 10/19/17 00:35 Dose: 83 mls/hr Nafcillin Sodium 2 gm/ Sodium (Chloride) 100 mls @ 100 mls/hr IVPB Q4H-IV MARC PRN Reason: Protocol Stop: 10/21/17 09:59 Levothyroxine Sodium (Synthroid -) 100 mcg PO DAILY@0700 [facility] Last Admin: 10/19/17 06:33 Dose: Not Given Lidocaine (Lidoderm Patch -) 1 patch TP DAILY [facility] Last Admin: 10/19/17 09:46 Dose: 1 patch Magnesium Oxide (Mag-Ox -) 400 mg PO BID [facility] Last Admin: 10/19/17 09:44 Dose: 400 mg Mirtazapine (Remeron -) 15 mg PO HS [facility] Last Admin: 10/18/17 21:22 Dose: Not Given Miscellaneous (Lidoderm Patch Removal) 1 each MC DAILY@2200 [facility] Last Admin: 10/18/17 21:21 Dose: 1 each Miscellaneous (Duragesic Patch Waste) 1 each MC PRN PRN PRN Reason: PAIN Morphine Sulfate (Ms Contin -) 15 mg PO TID [facility] Last Admin: 10/19/17 06:33 Dose: Not Given Pantoprazole Sodium (Protonix -) 40 mg PO DAILY [facility] Last Admin: 10/19/17 09:44 Dose: 40 mg Scopolamine HBr (Transderm-Scop -) 1 patch TD Q72H [facility] Last Admin: 10/16/17 17:21 Dose: 1 patch Gen: intubated, sedated, tachypneic Heart: RRR Lung: absent breath sounds on right, scattered rhonchi Abd: soft, nontender Ext: + edema Laboratory Results - last 24 hr 10/19/17 10/19/17 10/19/17 05:05 05:05 05:05 WBC Cancelled Corrected WBC (auto) Cancelled RBC Cancelled Hgb Cancelled Hct Cancelled MCV Cancelled MCH Cancelled MCHC Cancelled RDW Cancelled Plt Count Cancelled MPV Cancelled Total Counted Cancelled Neutrophils % Cancelled Neutrophils % (Manual) Cancelled Band Neutrophils % Cancelled Lymphocytes % Cancelled Lymphocytes % (Manual) Cancelled Monocytes % Cancelled Monocytes % (Manual) Cancelled Eosinophils % Cancelled Eosinophils % (Manual) Cancelled Basophils % Cancelled Basophils % (Manual) Cancelled Myelocytes % (Man) Cancelled Promyelocytes % (Man) Cancelled Blast Cells % (Manual) Cancelled Nucleated RBC % Cancelled Metamyelocytes Cancelled Differential Comment Cancelled Hypersegmented Neuts Cancelled Plasma Cells Cancelled Smudge Cells Cancelled Other Cell Type Cancelled Hypochromia Cancelled Toxic Granulation Cancelled Dohle Bodies Cancelled Justin Rods Cancelled Platelet Estimate Cancelled Platelet Comment Cancelled Polychromasia Cancelled Poikilocytosis Cancelled Basophilic Stippling Cancelled Anisocytosis Cancelled Microcytosis Cancelled Macrocytosis Cancelled Spherocytes Cancelled Siderocytes Cancelled Sickle Cells Cancelled Target Cells Cancelled Tear Drop Cells Cancelled Ovalocytes Cancelled Stomatocytes Cancelled Helmet Cells Cancelled [place] Bodies Cancelled [place] Rings Cancelled [place] Cells Cancelled Acanthocytes (Spur) Cancelled Rouleaux Cancelled Fragmented RBCs Cancelled Schistocytes Cancelled PT with INR 19.40 H INR 1.72 H D PTT (Actin FS) 26.5 L D Puncture Site ABG pH ABG pCO2 at Pt Temp ABG pO2 at Pt Temp ABG HCO3 ABG O2 Sat (Measured) ABG O2 Content ABG Base Excess Bebo Test O2 Delivery Device Oxygen Flow Rate Vent Mode Vent Rate Mechanical Rate PEEP Pressure Support Vent Sodium 140 Potassium 4.2 D Chloride 107 Carbon Dioxide 24 Anion Gap 9 BUN 47 H Creatinine 2.7 H Creat Clearance w eGFR 24.84 Random Glucose 110 H Calcium 6.6 L* Phosphorus 4.8 Magnesium 1.9 Total Bilirubin 0.9 D AST 22 D ALT 8 L D Alkaline Phosphatase 36 L D Total Protein 1.4 L D Albumin 0.4 L D 10/19/17 10/19/17 07:35 11:20 WBC 14.1 H Corrected WBC (auto) RBC 3.51 L Hgb 8.4 L D Hct 27.0 L MCV 76.7 L MCH 23.9 L MCHC 31.2 L RDW 21.5 H Plt Count 19 L* D MPV 8.2 Total Counted Neutrophils % Neutrophils % (Manual) Band Neutrophils % Lymphocytes % Lymphocytes % (Manual) Monocytes % Monocytes % (Manual) Eosinophils % Eosinophils % (Manual) Basophils % Basophils % (Manual) Myelocytes % (Man) Promyelocytes % (Man) Blast Cells % (Manual) Nucleated RBC % Metamyelocytes Differential Comment Hypersegmented Neuts Plasma Cells Smudge Cells Other Cell Type Hypochromia Toxic Granulation Dohle Bodies Justin Rods Platelet Estimate Platelet Comment Polychromasia Poikilocytosis Basophilic Stippling Anisocytosis Microcytosis Macrocytosis Spherocytes Siderocytes Sickle Cells Target Cells Tear Drop Cells Ovalocytes Stomatocytes Helmet Cells [place] Bodies [place] Rings [place] Cells Acanthocytes (Spur) Rouleaux Fragmented RBCs Schistocytes PT with INR INR PTT (Actin FS) Puncture Site Right radial ABG pH 7.28 L ABG pCO2 at Pt Temp 48.0 H ABG pO2 at Pt Temp 89.5 ABG HCO3 21.8 L ABG O2 Sat (Measured) 95.9 ABG O2 Content 12.1 L ABG Base Excess -4.3 L Bebo Test Positive O2 Delivery Device Vent Oxygen Flow Rate 60% Vent Mode Vent Vent Rate 14 Mechanical Rate Yes PEEP 10.0 Pressure Support Vent 450 Sodium Potassium Chloride Carbon Dioxide Anion Gap BUN Creatinine Creat Clearance w eGFR Random Glucose Calcium Phosphorus Magnesium Total Bilirubin AST ALT Alkaline Phosphatase Total Protein Albumin IMP: Acute Hypoxic Respiratory Failure Acute CVA vs underlying mets Metastatic NSCLC (Adenocarcinoma) to brain/bone MSSA Bacteremia Acute Kidney Injury Right Atelectasis Thrombocytopenia Anemia Hypothyroidism PLAN: - Transfusional support as indicated - Monitor for oral bleeding - ABX - IVF - replete lytes - monitor urine output, creatinine - continue ICU monitoring - poor overall prognosis, continue discussions regarding goals of care, pt DNR. Will schedule family meeting with [facility] Care to aide in decision making Dr Figueroa Critical care time spent in reviewing chart, evaluating patient and formulating plan 40 min
[2017-10-19] MEDS: SCOPOLAMINE HYDROBROMIDE 1 PATCH PATCH.TD72 TD SCH (12:51)
[2017-10-19] MEDS ORDERED: LORazepam 2 MG/ML SDV VIAL IVPUSH PRN (13:49)
[2017-10-19] MEDS ORDERED: LORazepam 2 MG/ML SDV VIAL IVPUSH ONE (13:49)
[2017-10-19] MEDS ORDERED: MORPHINE 100 MG in SODIUM CHLORIDE 98 ML IVPB SCH (14:00)
[2017-10-19] MEDS ORDERED: NAFCILLIN - 2 GM in SODIUM CHLORIDE 100 ML IVPB SCH (14:00)
--- NOTE | 2017-10-19 16:39 | PN ---
Progress Note (short form) - Note Progress Note: seen in icu intubated on vent low bp Current Medications Morphine Sulfate 100 mg/ (Sodium Chloride) 100 mls @ 1 mls/hr IVPB TITR MARC; 1 MG/HR PRN Reason: Protocol Last Admin: 10/19/17 15:02 Dose: 3 mg/hr, 3 mls/hr Lorazepam (Ativan Injection -) 2 mg IVPUSH Q4H PRN PRN Reason: ANXIETY Last Vital Signs Temp Pulse Resp BP Pulse Ox 98.8 F 117 H 25 H 64/54 95 10/19/17 08:00 10/19/17 14:00 10/19/17 14:00 10/19/17 14:00 10/19/17 09:45 unresponsive/sedated vital signs lungs vented abd soft ext no edema CBC, BMP 10/19/17 11:20 10/19/17 05:05 IMP- MOF/ LEIDA/hypotensive slowly progressive renal failure, non-oliguric resp failure Prerenal azotemia nonoliguric but urine output decreasing large positive balance/hypoalbuminemia mssa bacteremia severe anemia- transfused metastatic adenoca hyponatremia resolved cva Plan prognosis poor monitor urine output maintain map
--- NOTE | 2017-10-19 17:41 | PN ---
Progress Note (short form) - Note Progress Note: Called to see patient who was DNR and unresponsive. PE: Gen: Patient lying still in bed unresponsive to verbal or physical stimuli Neuro: Pupils fixed and dilated bilaterally, absent doll's eye reflex CVS: Absent pulses, no heart sounds present Resp: Absent respiration, no breath sounds Patient was pronounced at 5:09pm. Brother (Alden) was contacted. Primary team to be notified
[2017-10-19 18:17] VITALS: BP 110/60; PULSE 110
--- NOTE | 2017-10-20 12:20 | PATH ---
Surgical Pathology Report Patient Name: MAHOGANY RAMSAY Med. Rec. #: [id number] /Age/Gender: 1965 (Age: 51) / M Account: [id number] Location: ICU [facility] Taken: 10/15/2017 Received: 10/19/2017 Reported: 10/20/2017 Physicians: Tavo Reyes M.D. Specimen(s) Received OLD PORTACATH Clinical History The Infected Port-A-Cath Final Diagnosis PORT-A-CATH, REMOVAL: INTERNAL SPECIALIST (PORT-A-CATH). MACROSCOPIC DIAGNOSIS. Electronically Signed Elena Garcia M.D. Gross Description Received fresh labeled "old Port-A-Cath," is a 2.7 x 2.4 x 1.3 cm purple, irregular device, consistent with a port. The port displays a 26 cm in length portion of white tubing extending from one aspect. No soft tissue is present. No sections are submitted, gross only. [facility]
== END 2017-10-19 19:35 | disposition expired | DRG 343 ==
LOC: JER 16:58 → JERBED 10-08 00:26 → J7W 10-08 02:30 → J4S 10-13 00:31 → JICU 10-13 16:30
PROVIDERS: ADMIT Internal Medicine; ATTEND Internal Medicine
PROC: 30233H1 Transfusion of Nonautologous Whole Blood into Peripheral Vein, Percutaneous Approach (ICD-10-PCS; 2017-10-13)
PROC: 30233R1 Transfusion of Nonautologous Platelets into Peripheral Vein, Percutaneous Approach (ICD-10-PCS; 2017-10-13)
PROC: 0JPT3WZ Removal of Totally Implantable Vascular Access Device from Trunk Subcutaneous Tissue and Fascia, Percutaneous Approach (ICD-10-PCS; 2017-10-15)
PROC: 0CHY7BZ Insertion of Airway into Mouth and Throat, Via Natural or Artificial Opening (ICD-10-PCS; principal; 2017-10-16)
PROC: 5A1945Z Respiratory Ventilation, 24-96 Consecutive Hours (ICD-10-PCS; 2017-10-16)
DX: C79.51 Secondary malignant neoplasm of bone (principal); J96.01 Acute respiratory failure with hypoxia; I63.9 Cerebral infarction, unspecified; A41.01 Sepsis due to Methicillin susceptible Staphylococcus aureus; G92 Toxic encephalopathy; N17.9 Acute kidney failure, unspecified; C79.31 Secondary malignant neoplasm of brain; C79.70 Secondary malignant neoplasm of unspecified adrenal gland; C78.7 Secondary malignant neoplasm of liver and intrahepatic bile duct; C79.40 Secondary malignant neoplasm of unspecified part of nervous system; D69.6 Thrombocytopenia, unspecified; I95.9 Hypotension, unspecified; M84.58XA Pathological fracture in neoplastic disease, other specified site, initial encounter for fracture; J44.9 Chronic obstructive pulmonary disease, unspecified; E87.1 Hypo-osmolality and hyponatremia; R13.10 Dysphagia, unspecified; G81.91 Hemiplegia, unspecified affecting right dominant side; E83.42 Hypomagnesemia; D62 Acute posthemorrhagic anemia; C34.90 Malignant neoplasm of unspecified part of unspecified bronchus or lung; Z66 Do not resuscitate; R47.1 Dysarthria and anarthria; R29.810 Facial weakness; E87.6 Hypokalemia; J98.11 Atelectasis; E03.9 Hypothyroidism, unspecified; G89.3 Neoplasm related pain (acute) (chronic); M54.6 Pain in thoracic spine; F40.240 Claustrophobia; F17.210 Nicotine dependence, cigarettes, uncomplicated; M10.9 Gout, unspecified; T38.0X5A Adverse effect of glucocorticoids and synthetic analogues, initial encounter; R73.9 Hyperglycemia, unspecified; R47.81 Slurred speech; T82.7XXA Infection and inflammatory reaction due to other cardiac and vascular devices, implants and grafts, initial encounter; Y83.8 Other surgical procedures as the cause of abnormal reaction of the patient, or of later complication, without mention of misadventure at the time of the procedure
CPT/HCPCS: 36415; 36430; 36511; 36600; 70450-TC; 71010-TC; 72070-TC; 72100-TC; 72128-TC; 72131-TC; 74230-TC; 80048; 80053; 80061; 81003; 81015; 82570; 82803; 83721; 83735; 84100; 84156; 84300; 85025; 85027; 85384; 85610; 85730; 86140; 86850; 86900; 86901; 86922; 87040; 87086; 87186; 87205; 88300-TC; 92611-GN; 93005; 93010; 93306-TC; 94002; 94640; 97116-GP; 97161-GP; 99283-25; P9034; P9038; P9058